=== PATIENT | male | born 1950 | race Caucasian/White ===

== ENCOUNTER 2021-08-29 08:01 | Outpatient (REF) | payer OTHER, SELFPAY ==
[2021-08-29 08:53] LABS: MANUAL DIFF FLAG NO
[2021-08-29 09:59] LABS: Basophils Percent Auto 0.5 % (0-2); Eosinophils Absolute Auto 0.1 X10*3/uL (0.0-0.4); Eosinophils Percent Auto 2.2 % (0-4); Hematocrit 33.4 % (42.0-52.0); Hemoglobin 11.4 g/dl (14.0-18.0); Imm Gran Abs Auto 0.02 X10*3/uL (0.00-0.03); Imm Gran Pct Auto 0.5 % (0.0-0.4); Lymphocytes Absolute Auto 1.2 X10*3/uL (1.2-4.9); Lymphocytes Percent Auto 33.4 % (20-40); Mean Corpuscular HGB Conc 34.1 g/dl (31.0-36.0); Mean Corpuscular Hemoglobin 33.1 pg (27.0-33.0); Mean Corpuscular Volume 97.1 fL (80.0-98.0); Mean Platelet Volume 10.4 fL (9.4-12.4); Monocytes Absolute Auto 0.3 X10*3/uL (0.1-1.2); Monocytes Percent Auto 9.3 % (2-11); Neutrophils Percent Auto 54.1 % (45-73); Platelet Count 155 X10*3/uL (160-400); Red Blood Count 3.44 X10*6/uL (4.60-5.80); Red Cell Distribution Width 13.4 % (11.0-16.0); White Blood Count 3.7 X10*3/uL (4.8-10.8)
[2021-08-29 10:06] LABS: Prothrombin Time 11.8 SEC (9.9-13.0)
[2021-08-29 10:13] LABS: Estimated Average Glucose 148 mg/dL; Hemoglobin A1c % 6.8 %
[2021-08-29 10:50] LABS: Alanine Aminotransferase 16 U/L (0-40); Albumin Level 3.7 g/dL (3.5-5.0); Alkaline Phosphatase 103 U/L (39-117); Anion Gap 14 (12-20); Aspartate Amino Transferase 22 U/L (5-37); Bilirubin Direct 0.3 mg/dL (0.0-0.5); Bilirubin Total 0.8 mg/dL (0.0-1.0); Blood Urea Nitrogen 29 mg/dL (9-16); Calcium 8.8 mg/dL (8.4-10.2); Carbon Dioxide 18 mmol/L (22-29); Chloride 108 mmol/L (96-108); Cholesterol 172 mg/dL; Estimated Glomerular Filt Rate 37; Glucose Random 215 mg/dL (60-115); HDL Cholesterol 34 mg/dL; LDL Cholesterol Calculated 112 mg/dl; Magnesium 1.9 mg/dL (1.6-2.6); Potassium 5.7 mmol/L (3.3-5.1); Sodium 134 mmol/L (135-145); Total Protein 6.6 g/dL (6.5-8.0); Triglycerides 132 mg/dL
[2021-08-29 11:02] LABS: Uric Acid 7.6 mg/dL (3.4-7.0)
[2021-08-30 16:17] LABS: Tacrolimus Prograf 4.7 mcg/L
== END 2021-08-29 08:02 | disposition home or self-care (01) ==
LOC: HO.LAB 08:01
PROVIDERS: Absent Provider Internal Medicine Endocrinology, Diabetes & Metabolism; Visit Provider Internal Medicine Transplant Hepatology
DX: E11.65 Type 2 diabetes mellitus with hyperglycemia (principal); Z79.4 Long term (current) use of insulin
CPT/HCPCS: 36415; 80048; 80061; 80076; 80197; 83036; 83735; 84550; 85025; 85610

== ENCOUNTER 2021-10-07 10:12 | Outpatient (REF) | payer OTHER, SELFPAY ==
[2021-10-07 11:24] LABS: Alanine Aminotransferase 18 U/L (0-40); Albumin Level 3.8 g/dL (3.5-5.0); Alkaline Phosphatase 87 U/L (39-117); Aspartate Amino Transferase 19 U/L (5-37); Bilirubin Direct 0.3 mg/dL (0.0-0.5); Bilirubin Total 0.8 mg/dL (0.0-1.0); Total Protein 6.9 g/dL (6.5-8.0)
== END 2021-10-07 10:13 | disposition home or self-care (01) ==
LOC: HO.LAB 10:12
PROVIDERS: PCP Internal Medicine; Visit Provider Internal Medicine Endocrinology, Diabetes & Metabolism
DX: E78.00 Pure hypercholesterolemia, unspecified (principal)
CPT/HCPCS: 36415; 80076

== ENCOUNTER 2022-05-19 00:56 | Inpatient (IN) | payer OTHER, SELFPAY ==
[2022-05-19] VITALS (7 sets, daily range): BP systolic 106–146; BP diastolic 40–78; PULSE 72–95; RESP 16–18; TEMP 36.7–37.1; O2SAT 96–99; BMI 41.3
--- NOTE | ~2022-05-19 | CT_ITS ---
EXAMINATION: CT ABDOMEN AND PELVIS WITHOUT CONTRAST CLINICAL INFORMATION: History of staph bacteremia. Evaluate for potential source of infection. COMPARISON: CT abdomen/pelvis from 10/18/2016. TECHNIQUE: Multidetector volumetric imaging was performed from the superior aspect of the liver through the pubic symphysis. Sagittal and coronal reformatted images were obtained on the technologist's workstation. This CT examination was performed using dose optimization techniques as appropriate, variously including the following: *Automated exposure control *Adjustment of mA and/or kV according to patient size (this includes techniques or standardized protocols for targeted exams where dose is matched to indication/reason for exam; i.e. extremities or head) *Use of iterative reconstruction technique DLP: 684 mGy-cm FINDINGS: LUNG BASES: Linear opacities of mild atelectasis in the visualized bases. Trace right pleural effusion. No basilar consolidation. Aortic valve is calcified. Three-vessel coronary artery atherosclerotic calcification. No pericardial effusion. LIVER: The cirrhotic liver has lobulated surface contour. No focal liver lesion is detected on this noncontrast examination. GALLBLADDER AND BILIARY TREE: Gallbladder surgically absent. No dilated bile ducts. PANCREAS: Pmyi-ie-rdclpjze atrophy of the pancreas. No acute pancreatic abnormality. No pancreatic ductal dilatation. SPLEEN: Chronic mild splenomegaly. Spleen measures up to 13.1 cm maximum dimension. ADRENAL GLANDS: Normal. KIDNEYS AND URETERS: Mild cortical atrophy of the kidneys. No nephrolithiasis or hydronephrosis. A structure medial to the right kidney of 30 Hounsfield unit attenuation that currently measures 2.8 cm AP presumably represents a chronically hyperdense peripelvic cyst. This has decreased in size compared to 10/11/2014 and 10/18/2016. BLADDER: Normal. No calculi or wall thickening. BOWEL AND PERITONEUM: There is circumferential thickening of the wall of the second and proximal third portion of duodenum with edema of the surrounding fat. There is no discrete periduodenal fluid collection. No abscess. No dilated bowel loops or pneumoperitoneum. The appendix is normal. There are scattered diverticula of the colon without evidence of diverticulitis. ABDOMINAL WALL: Chronic diastases of rectus abdominis muscles. No acute or significant findings in the abdominal wall. VASCULATURE: Mild atherosclerosis of the abdominal aorta without aneurysm. LYMPH NODES: No pathologic sized lymph nodes in the abdomen or pelvis. No inguinal lymphadenopathy. PELVIC VISCERA: Prostate gland is normal in size. No pelvic mass or free fluid. SKELETAL: Although there is chronic endplate irregularity and interbody fusion at L4-L5, this deformity is new compared to 10/18/2016, and this could be sequela of prior discitis. There is no spinal fusion hardware at this level. Diffuse idiopathic skeletal hyperostosis as manifest by flowing anterior ligament ossification of the visualized thoracic spine. Multilevel degenerative arthropathy of the spine. CT/CT abdomen pelvis wo con IMPRESSION: * There is circumferential wall thickening and fat stranding of the proximal duodenum. These imaging findings are suggestive of duodenitis. No evidence of bowel perforation or abscess formation. * Mild diverticulosis of the colon without diverticulitis. * Chronic liver cirrhosis and splenomegaly. * A slightly hyperdense structure projecting medial to the right kidney might represent a proteinaceous parapelvic cyst; it has decreased in size compared to 10/11/2014 and 10/18/2016.
--- NOTE | ~2022-05-19 | XR_ITS ---
EXAMINATION: XR LUMBOSACRAL SPINE CLINICAL INFORMATION: Back pain. Prior back surgery. COMPARISON: CT abdomen pelvis 10/18/2016 TECHNIQUE: Three views of the lumbosacral spine. FINDINGS: Normal alignment of the lumbar spine. There is mild height loss of the L5 vertebral body which is age indeterminate. There is severe narrowing of the L4/L5 disc space height with prominent sclerotic changes of both endplates and prominent bridging osteophytes at this level. Also noted is mild to moderate narrowing of the L3/L4 and L5/S1 disc space heights. Prominent osteophytes also noted at the L3/L4 level. There are degenerative changes of the posterior elements of the lower lumbar spine. XR/XR lumbar spine 2-3V IMPRESSION: Moderate degenerative changes of the lower lumbar spine with mild compression deformity of the L5 vertebral body which is age indeterminate. If concern for an acute fracture, further evaluation with MRI imaging can be obtained to better assess acuity.
--- NOTE | ~2022-05-19 | MR_ITS ---
MR LUMBAR SPINE WITHOUT CONTRAST CLINICAL INFORMATION: Staph bacteremia. COMPARISON: Abdominal CT 05/21/2022 and lumbar spine radiographs 05/19/2022. TECHNIQUE: MRI of the lumbar spine was obtained using routine sequences without contrast. FINDINGS: There are 5 nonrib-bearing lumbar-type vertebral bodies. There is chronic opposing vertebral body height loss at L4-L5. There are significant T2 signal changes adjacent to a large right-sided anterior bridging osteophyte at L1-L2. There is bone marrow edema within this bridging osteophyte complex which could reflect focal osteomyelitis given the history. Adjacent T2 signal changes extending into the right retrocrural compartment and the adjacent right retroperitoneum may reflect cellulitis/phlegmon. No definite drainable abscess is seen with assessment limited given the lack of contrast. No additional evidence of infection within the lumbar spine. Severe disc volume loss at L4-L5. There is disc desiccation at all lumbar levels. Conus terminates at the L1-L2 level. Enlarged retroperitoneal lymph nodes may be reactive. L1-L2: Small annular disc bulge and mild bilateral facet arthropathy. No central canal stenosis and no foraminal stenosis. L2-L3: There is an annular disc bulge that is in part disc osteophyte and there is moderate bilateral hypertrophic facet arthropathy. Left lateral disc osteophyte protrusion contacts the extraforaminal left L2 nerve root. L3-L4: Diffuse annular disc bulges in part disc osteophyte and moderate bilateral facet arthropathy. No central canal stenosis. Lateral disc osteophyte contacts the extraforaminal L3 nerve roots bilaterally. L4-L5: Diffuse osteophytic ridging and severe bilateral facet arthropathy. Left hemilaminectomy changes. No central canal stenosis. Lateral osteophytic ridging results in moderate to severe right foraminal stenosis with mass effect on the exiting right L4 nerve root. Osteophytic ridging results in mass effect on the extraforaminal left L4 nerve root as well. L5-S1: Diffuse disc osteophyte complex and severe bilateral facet arthropathy and ligamentum flavum thickening. Findings in concert result in right subarticular zone stenosis with mass effect on the traversing right S1 nerve root as well as severe right and moderate left foraminal stenosis with mass effect on the exiting right greater than left L5 nerve roots. MR/MR lumbar spine wo con IMPRESSION: - Please note that the patient refused contrast for this study. There are significant paravertebral T2 signal changes adjacent to a large right-sided anterior bridging osteophyte at L1-L2. There is bone marrow edema within this bridging osteophyte complex which could reflect focal osteomyelitis given the history. Adjacent T2 signal changes extending into the right retrocrural compartment and the adjacent right retroperitoneum may reflect cellulitis/phlegmon. No definite drainable abscess is seen with assessment limited given the lack of contrast. - At L2-L3, a left lateral disc osteophyte protrusion contacts the extraforaminal left L2 nerve root. - At L3-L4, lateral disc osteophyte contacts the extraforaminal L3 nerve roots bilaterally. - At L4-L5, there is complete disc volume loss and chronic opposing endplate height loss. Lateral osteophytic ridging results in moderate to severe right foraminal stenosis with mass effect on the exiting right L4 nerve root. Osteophytic ridging results in mass effect on the extraforaminal left L4 nerve root as well. - At L5-S1, multifactorial degenerative changes result in right subarticular zone stenosis with mass effect on the traversing right S1 nerve root as well as severe right and moderate left foraminal stenosis with mass effect on the exiting right greater than left L5 nerve roots.
--- NOTE | 2022-05-19 01:30 | PC.NURSE ---
BHANU TO BEDSIDE FROM WAITING ROOM, CONFIRMS PATIENT TO BE A POOR HISTORIAN. CONFIRMS SPASMS/PAIN SO SEVERE PT UNABLE TO GET COMFORTABLE AT ALL IN ANY POSITION THIS EVENING.
--- NOTE | 2022-05-19 01:49 | ED_ITS ---
HPI - General Adult General Chief complaint: General Medical Stated complaint: back spasms Time Seen by Provider: 05/19/22 01:49 Source: patient Mode of arrival: EMS Limitations: no limitations History of Present Illness HPI narrative: patient with a bad back since having a liver transplant 5 years ago. 3 days ago started with back pain, patient then developed fever and chills. Patient on immunosupressives, no prior infections. After his initial surgery he developed an infection in his back involving the lumbar spine. Onset (ago): day(s) Location: back Radiation: other (right flank) Severity: moderate Quality: burning Pain Consistency: constant Exacerbating factors: none Associated symptoms: fever/chills Treatments prior to arrival: none Related Data Allergies Allergy/AdvReac Type Severity Reaction Status Date / Time ibuprofen [IBUPROFEN] Allergy Severe SWELLING Verified 05/19/22 01:16 peanut [PEANUTS] Allergy Unknown SWELLING Verified 05/19/22 01:16 Review of Systems 2 Constitutional: Constitutional: Reports no additional constitutional complaints Eyes: Eyes: Reports no additional eye complaints ENT: Denies dizziness Cardiovascular: Cardiovascular: Reports no additional cardiovascular complaints Respiratory: Respiratory: Reports as per HPI Gastrointestinal: Gastrointestinal: Reports no additional gastrointestinal complaints Musculoskeletal: Musculoskeletal: Reports no additional musculoskeletal complaints Integumentary/Breasts: Skin/Breast: Denies rash Neurologic: Reports system reviewed and no additional complaints, except as documented, Denies dizziness and Denies Sensory deficit (Neuro) Psychiatric: Psychiatric: Denies anxiety [facility] Social History Social History Advance Directives: Yes Advance Directives Information Provided: No Advance Directives on File: No Physical Exam ED Vital Signs: Vital Signs - 24 hr 05/19/22 01:16 Temperature 98.1 F Pulse Rate 78 Respiratory Rate 18 Blood Pressure 136/61 Pulse Oximetry 97 Oxygen Delivery Method Room Air BMI result Body Mass Index 41.3 Const Other: Male uncomfortable Nutritional Appearance: obese Orientation/consciousness: oriented to person and patient oriented x3 Limitations: no limitations HENMT Head: Yes normal to inspection Ears: external ears normal General nose exam: Normal external nose present Mouth: Normal oral and palatal mucosa present and oropharynx normal Throat: Yes posterior oropharynx normal Eyes General: appearance normal, both eyes and all related structures Neck Neck: Yes normal visual inspection Chest Chest palpation & inspection: normal inspection of the chest Resp Auscultation: clear to auscultation bilaterally Cardio Jugular venous distension: no JVD Rate: regular rate Rhythm: regular rhythm Heart sounds: S1 normal heart sound present and S2 normal heart sound present GI Inspection: Yes normal to inspection Palpation (GI): Soft to palpation, nontender and No hepatosplenomegaly present Auscultation: normal bowel sounds General: Yes no CVA tenderness Back/Spine/Pelvis Back: no CVA tenderness Skin Other: area of erythema on right flank but from pressure Neuro General: oriented to person and patient oriented x3 Cranial nerves: Yes CN's II-XII intact bilaterally Motor exam (neuro): 5/5 motor strength present throughout Sensory Exam: No Sensory deficit (Neuro) Extrem General: Yes normal to inspection Psych Appearance: grossly normal Course Reevaluation(s) Reevaluation #1: patient with elevated WBC , redness to right lower flank has not gone away, could be cellulitis vs early zoster. Now with LFTs abnormalities will discuss with transplant surgeon will cover flank with ancef. Time: 03:52 Reevaluation #2: Discussed with [facility] transplant team, patient not showing early signs of rejection will admit for cellulitis vs zoster Time: 04:26 Medical Decision Making Lab Data Result diagrams: 05/19/22 02:40 05/19/22 02:40 Labs: Lab Results 05/19/22 05/19/22 05/19/22 Range/Units 02:40 02:40 04:48 WBC 12.3 H (4.8-10.8) X10*3/uL RBC 3.35 L (4.60-5.80) X10*6/uL Hgb 11.2 L (14.0-18.0) g/dl Hct 31.7 L (42.0-52.0) % MCV 94.6 (80.0-98.0) fL MCH 33.4 H (27.0-33.0) pg MCHC 35.3 (31.0-36.0) g/dl RDW 13.5 (11.0-16.0) % Plt Count 116 L D (160-400) X10*3/uL MPV 10.5 (9.4-12.4) fL Immature Gran % (Auto) 0.9 H (0.0-0.4) % Neut % (Auto) 88.8 H (45-73) % Lymph % (Auto) 6.0 L (20-40) % [place] % (Auto) 4.1 (2-11) % Eos % (Auto) 0.0 (0-4) % Baso % (Auto) 0.2 (0-2) % Lymph # (Auto) 0.7 L (1.2-4.9) X10*3/uL [place] # (Auto) 0.5 (0.1-1.2) X10*3/uL Eos # (Auto) 0.0 (0.0-0.4) X10*3/uL Baso # (Auto) 0.0 (0.0-0.2) X10*3/uL Abs Immat Gran (auto) 0.11 H (0.00-0.03) X10*3/uL Absolute Neuts (auto) 10.9 H (2.0-8.3) x10*3/uL Absolute Nucleated RBC 0.000 (0.0-0.012) X10*3/uL Nucleated RBC % (auto) 0.0 (0.0-0.2) /100WBC Sodium 133 L (135-145) mmol/L Potassium 5.1 (3.3-5.1) mmol/L Chloride 104 (96-108) mmol/L Carbon Dioxide 17 L (22-29) mmol/L Anion Gap 17 (12-20) BUN 37 H (9-16) mg/dL Creatinine 2.05 H (0.5-1.4) mg/dL Estim Creat Clear Calc 33.1 Estimated GFR 32 Random Glucose 222 H (60-115) mg/dL Calcium 8.7 (8.4-10.2) mg/dL Total Bilirubin 1.3 H (0.0-1.0) mg/dL Direct Bilirubin 0.4 (0.0-0.5) mg/dL AST 47 H D (5-37) U/L ALT 46 H (0-40) U/L Alkaline Phosphatase 78 (39-117) U/L Total Protein 6.7 (6.5-8.0) g/dL Albumin 3.5 (3.5-5.0) g/dL COVID-19 (JACQUELYN) Negative (Negative) COVID-19 Clin Com See Note Critical Care Time Critical Care Time Attestation: I spent 40 minutes of critical care, with interventions, assessments, speaking to patient, consultants, and family. Discharge Plan Discharge Clinical Impression: Cellulitis, Shingles Patient Disposition: Admitted As Inpatient
[2022-05-19] MEDS: Cyclobenzaprine HCl 10 MG TABLET PO (02:23)
[2022-05-19] MEDS: Ketorolac Tromethamine 30 MG/ML VIAL IVPUSH (02:41)
[2022-05-19 03:07] LABS: Basophils Percent Auto 0.2 % (0-2); Hematocrit 31.7 % (42.0-52.0); Hemoglobin 11.2 g/dl (14.0-18.0); Imm Gran Abs Auto 0.11 X10*3/uL (0.00-0.03); Imm Gran Pct Auto 0.9 % (0.0-0.4); Lymphocytes Absolute Auto 0.7 X10*3/uL (1.2-4.9); MANUAL DIFF FLAG NO; Mean Corpuscular HGB Conc 35.3 g/dl (31.0-36.0); Mean Corpuscular Hemoglobin 33.4 pg (27.0-33.0); Mean Corpuscular Volume 94.6 fL (80.0-98.0); Mean Platelet Volume 10.5 fL (9.4-12.4); Monocytes Absolute Auto 0.5 X10*3/uL (0.1-1.2); Monocytes Percent Auto 4.1 % (2-11); Neutrophils Absolute Auto 10.9 x10*3/uL (2.0-8.3); Neutrophils Percent Auto 88.8 % (45-73); Platelet Count 116 X10*3/uL (160-400); Red Blood Count 3.35 X10*6/uL (4.60-5.80); Red Cell Distribution Width 13.5 % (11.0-16.0); White Blood Count 12.3 X10*3/uL (4.8-10.8)
[2022-05-19 03:35] LABS: Alanine Aminotransferase 46 U/L (0-40); Albumin Level 3.5 g/dL (3.5-5.0); Alkaline Phosphatase 78 U/L (39-117); Anion Gap 17 (12-20); Aspartate Amino Transferase 47 U/L (5-37); Bilirubin Direct 0.4 mg/dL (0.0-0.5); Bilirubin Total 1.3 mg/dL (0.0-1.0); Blood Urea Nitrogen 37 mg/dL (9-16); Calcium 8.7 mg/dL (8.4-10.2); Carbon Dioxide 17 mmol/L (22-29); Chloride 104 mmol/L (96-108); Creatinine Clr Calc Pharmacy 33.1; Estimated Glomerular Filt Rate 32; Glucose Random 222 mg/dL (60-115); Potassium 5.1 mmol/L (3.3-5.1); Sodium 133 mmol/L (135-145); Total Protein 6.7 g/dL (6.5-8.0)
[2022-05-19 05:14] LABS: COVID-19 Test Negative (Negative)
[2022-05-19] MEDS: ceFAZolin Sodium 3 GM in 0.9 % Sodium Chloride 100 ML IV (05:44)
[2022-05-19] MEDS: Morphine Sulfate 4 MG/ML CARTRIDGE IVPUSH (05:45)
--- NOTE | 2022-05-19 06:29 | PC.NURSE ---
REPORT FROM OSBALDO CAST AT 05:00. AIRBORNE AND CONTACT PRECAUTION SIGNS PLACED ON DOOR UNTIL SHINGLES ARE R/O.
[2022-05-19 08:14] LABS: Appearance Urine Clear; Color Urine Yellow; Glucose Urine UA Negative (Negative); Leukocyte Esterase Urine Negative (Negative); Nitrite Urine Negative (Negative); Specific Gravity - Urine >= 1.030 (1.005-1.025); Urine Blood Negative (Negative); Urine Ketones Trace mg/dL (Negative); Urine Protein Trace mg/dL (Neg-Trace)
--- NOTE | 2022-05-19 09:20 | P.HPHOSP_ITS ---
History of Present Illness Date of Service: 05/19/22 Chief Complaint: R back pain This is a 71 year old male with a PMH of Cirrhosis (reprots no related to EtOH) - s/p liver transplant about 5 years ago, DM, Back surgery and chronic back pain, HTN, HLD who presents to the ED with a 2 day history of right sided back pain, severe in nature, non radiating with associated fevers and chills. He reports that his current symptoms are different than his prior back surgery / osteomyelitis. He reports compliance with his anti-rejcection medications. He denies any sick contacts. He denies any chest pain, shortness of breath, abdominal pain. He reports a decrease in oral intake. Work up in the ED showed leukocytosis and mildly elevated SCr / AST / ALT. On exam, there was concern for cellulitis vs early zoster. He has been given analgesics and IV antibiotics. Given his immunocompromised state, he will be observed overnight. The pt reports his back pain has improved with IV analgesics. Review of Systems Review of Systems: negative except HPI PMFSH Social History Advance Directives: Yes Advance Directives on File: Yes Advance Directives Date on File: 05/19/22 Meds Allergies Allergy/AdvReac Type Severity Reaction Status Date / Time ibuprofen [IBUPROFEN] Allergy Severe SWELLING Verified 05/19/22 01:16 peanut [PEANUTS] Allergy Unknown SWELLING Verified 05/19/22 01:16 Active Medications: Current Medications Acetaminophen (Acetaminophen 325 Mg Tablet) 650 mg PO Q6H PRN PRN Reason: Pain, Mild (Pain Scale 1-3) Ondansetron HCl (Ondansetron Hcl 4 Mg/2 Ml Vial) 4 mg IVPUSH Q8H PRN PRN Reason: Nausea and Vomiting Pharmacy Consult (Consult Rx Perform Med Rec) 1 each MISCELLANE ONCE PRN PRN Reason: Consult order Pharmacy Consult (Consult Rx Perform Med Rec) 1 each MISCELLANE ONCE PRN PRN Reason: Consult order Sodium Chloride (0.9 % Sodium Chloride Flush 3 Ml Syringe) 3 ml IVFLUSH [facility] Home Medications Medication Instructions Recorded Confirmed Last Taken Type acetaminophen 500 mg tablet 500 mg PO Q6H PRN Pain 05/19/22 05/19/22 05/18/22 History amlodipine 10 mg tablet 1 tab PO DAILY 05/19/22 05/19/22 05/18/22 History ascorbic acid (vitamin C) 500 mg 500 mg PO DAILY 05/19/22 05/19/22 Unknown History tablet (Vitamin C) aspirin 81 mg tablet,delayed 1 tab PO BEDTIME 05/19/22 05/19/22 05/18/22 History release atorvastatin 20 mg tablet 1 tab PO BEDTIME 05/19/22 05/19/22 05/18/22 History cholecalciferol (vitamin D3) 25 25 mcg PO DAILY 05/19/22 05/19/22 Unknown History mcg (1,000 unit) tablet (Vitamin D3) clonidine HCl 0.1 mg tablet 1 tab PO BID 05/19/22 05/19/22 05/18/22 History docusate sodium 100 mg capsule 100 mg PO BID 05/19/22 05/19/22 Unknown History (Colace) lisinopril 2.5 mg tablet 1 tab PO DAILY 05/19/22 05/19/22 05/18/22 History multivitamin 1 tab PO DAILY 05/19/22 05/19/22 Unknown History repaglinide 0.5 mg tablet 1 tab PO TIDAC 05/19/22 05/19/22 05/18/22 History sennosides 8.6 mg tablet (senna) 8.6 mg PO BID 05/19/22 05/19/22 Unknown History sitagliptin 50 mg tablet (Januvia) 1 tab PO DAILY 05/19/22 05/19/22 05/18/22 History tacrolimus 1 mg capsule, 1 cap PO BID 05/19/22 05/19/22 05/18/22 History immediate-release Physical Exam Vital Signs and Narrative: Vital Signs: Last Vital Signs Temp 98.2 F 05/19/22 06:09 Pulse 72 05/19/22 07:58 Resp 16 05/19/22 07:58 BP 110/40 L 05/19/22 07:58 Pulse Ox 97 05/19/22 07:58 O2 Del Method 05/19/22 07:58 BMI result Body Mass Index 41.3 Const: Other: Constitutional - Awake and Alert, No apparent distress Eyes - PERRLA, EOMI Cardiovascular - S1S2, RRR, No edema Respiratory - Normal lung expansion, Normal respiratory effort, No respiratory distress, CTA bilaterally Gastrointestinal - NT / ND; +BS; No rebound or guarding - No CVA tenderness Extremities - no calf tenderness bilaterally, no swelling Musculoskeletal - Normal inspection, normal ROM Skin - Warm/Dry, see pictures below Neurological - Alert & oriented x3, No focal deficit Psychological - Appropriate affect Skin: Other: Results Labs CBC and Chem 7: 05/19/22 02:40 05/19/22 02:40 Labs: Laboratory Results - last 24 hr 05/19/22 05/19/22 05/19/22 02:40 02:40 04:48 MCV 94.6 MCH 33.4 H MCHC 35.3 RDW 13.5 Plt Count 116 L D MPV 10.5 Immature Gran % (Auto) 0.9 H Neut % (Auto) 88.8 H Lymph % (Auto) 6.0 L [place] % (Auto) 4.1 Eos % (Auto) 0.0 Baso % (Auto) 0.2 Lymph # (Auto) 0.7 L [place] # (Auto) 0.5 Eos # (Auto) 0.0 Baso # (Auto) 0.0 Abs Immat Gran (auto) 0.11 H Absolute Neuts (auto) 10.9 H Absolute Nucleated RBC 0.000 Nucleated RBC % (auto) 0.0 Anion Gap 17 Estim Creat Clear Calc 33.1 Estimated GFR 32 Random Glucose 222 H Calcium 8.7 Total Bilirubin 1.3 H Direct Bilirubin 0.4 AST 47 H D ALT 46 H Alkaline Phosphatase 78 Total Protein 6.7 Albumin 3.5 Urine Color Urine Appearance Urine pH Ur Specific [place] Urine Protein Urine Glucose (UA) Urine Ketones Urine Blood Urine Nitrite Ur Leukocyte Esterase COVID-19 (JACQUELYN) Negative COVID-19 Clin Com See Note 05/19/22 08:07 MCV MCH MCHC RDW Plt Count MPV Immature Gran % (Auto) Neut % (Auto) Lymph % (Auto) [place] % (Auto) Eos % (Auto) Baso % (Auto) Lymph # (Auto) [place] # (Auto) Eos # (Auto) Baso # (Auto) Abs Immat Gran (auto) Absolute Neuts (auto) Absolute Nucleated RBC Nucleated RBC % (auto) Anion Gap Estim Creat Clear Calc Estimated GFR Random Glucose Calcium Total Bilirubin Direct Bilirubin AST ALT Alkaline Phosphatase Total Protein Albumin Urine Color Yellow Urine Appearance Clear Urine pH 5.0 Ur Specific [place] >= 1.030 H Urine Protein Trace Urine Glucose (UA) Negative Urine Ketones Trace Urine Blood Negative Urine Nitrite Negative Ur Leukocyte Esterase Negative COVID-19 (JACQUELYN) COVID-19 Clin Com Assessment and Plan (1) Cellulitis: Status: Acute Plan This is a 71 year old male with a 2 day history of R back/flank pain with associated fevers and chills. He is admitted under obs for: 1. R flank pain, possible early cellulitis On exam, mild erythema in the region compared to the rest of the back Given his immunocompromised state -- will opt for IV kefzol today and likely PO keflex upon d/c No clinical signs to indicate zoster flare -- will monitor closely The patient does not have severe sepsis -- his SCr is likely related to CKD 2. Cirrohosis -s/p liver transplan monitor LFTs and continue his anti-rejection meds 3. DM hold orals use sliding scale, diabetic diet 4. HTN hold BP meds today 5. HLD statin Full Code DVT pptx, low risk -- early ambulation; if the patient requires on going inpatient hospitalization -- may need to consider pharmacological therapy Quality Stroke Does the patient have a stroke diagnosis?: No VTE Prior VTE?: No VTE Risk Level:: Medical - moderate - high VTE Device Contraindication: N/A - Device Ordered VTE Drug Contraindication: N/A - Med Ordered
--- NOTE | 2022-05-19 09:45 | PHA.MEDREC ---
Pharmacy Consult ? Medication Reconciliation Pharmacy has completed the medication reconciliation. Patient poor historian of medications. Called patient's and verified meds with her list of medications. Cross-referenced with claim history as well.
[2022-05-19] MEDS: Lactated Ringers 1,000 ML 100 ML IVCONT ×2 (12:55→20:33)
--- NOTE | 2022-05-19 20:45 | PM.EVENT ---
Event Note Date of Service: 05/19/22 Event Note: pt cultires growing gram positive cocci . will cover with vanco and rpt cultures
[2022-05-19] MEDS: Docusate Sodium 100 MG CAPSULE PO (22:05)
[2022-05-19] MEDS: Aspirin Enteric Coated 81 MG TABLET.DR PO (22:05)
[2022-05-19] MEDS: Atorvastatin Calcium 20 MG TABLET PO (22:05)
[2022-05-19] MEDS: Sennosides 8.6 MG TABLET PO (22:05)
[2022-05-19] MEDS: cloNIDine HCL 0.1 MG TABLET PO (22:05)
[2022-05-19] MEDS: Tacrolimus 1 MG CAPSULE PO (22:20)
[2022-05-20] VITALS (7 sets, daily range): BP systolic 115–150; BP diastolic 57–97; PULSE 61–78; RESP 15–24; TEMP 36.6–37; O2SAT 97–99
[2022-05-20 07:53] LABS: Hemoglobin 9.8 g/dl (14.0-18.0); Mean Corpuscular Hemoglobin 33.3 pg (27.0-33.0); Mean Corpuscular Volume 95.2 fL (80.0-98.0); Mean Platelet Volume 10.7 fL (9.4-12.4); Red Blood Count 2.94 X10*6/uL (4.60-5.80); Red Cell Distribution Width 13.4 % (11.0-16.0); White Blood Count 6.7 X10*3/uL (4.8-10.8)
[2022-05-20 07:58] LABS: Anion Gap 14 (12-20); Blood Urea Nitrogen 37 mg/dL (9-16); Carbon Dioxide 18 mmol/L (22-29); Chloride 106 mmol/L (96-108); Creatinine Clr Calc Pharmacy 41.2; Estimated Glomerular Filt Rate 41; Glucose Random 197 mg/dL (60-115); Potassium 4.5 mmol/L (3.3-5.1); Sodium 133 mmol/L (135-145)
[2022-05-20 08:04] LABS: Calcium 7.9 mg/dL (8.4-10.2)
[2022-05-20 08:09] LABS: Platelet Count 98 X10*3/uL (160-400)
[2022-05-20 08:14] LABS: Glucose, Whole Blood 178 mg/dL (60-115)
[2022-05-20] MEDS: Acetaminophen 325 MG TABLET 650 MG PO (08:59)
[2022-05-20] MEDS: cloNIDine HCL 0.1 MG TABLET PO ×2 (09:00→20:17)
--- NOTE | 2022-05-20 09:00 | PC.NURSE ---
pt is a/o x 3 no sob/olive noted skin pink warm dry speaks in full sentences. lungs -cta. abd distended, soft and n/t. daughter chau([phone]) is at bedside. pt/daughter aware of plan of care. pt to go to the ed overflow unit. rn to rn report given.. pt continue with lr fluids running.
[2022-05-20] MEDS: 0.9 % Sodium Chloride Flush 3 ML SYRINGE IVFLUSH ×3 (09:01→23:57)
[2022-05-20] MEDS: Sennosides 8.6 MG TABLET PO (09:01)
[2022-05-20] MEDS: Multivitamin TABLET 1 TAB PO (09:01)
[2022-05-20] MEDS: Docusate Sodium 100 MG CAPSULE PO (09:01)
[2022-05-20] MEDS: Tacrolimus 1 MG CAPSULE PO ×2 (10:58→20:18)
--- NOTE | 2022-05-20 14:17 | MHC.CM.PN ---
PATIENT LIVES WITH AND FAMILY HCP IS AND A COPY IS REQUESTED. NO DME OR VNA SERVICES. HE HAS BEEN VACCINATED AGAINST COVID-19 X 3. HE HAS NOT CONTRACTED COVID-19 PATIENT REPORTS THAT HE IS A LIVER TRANSPLANT PATIENT PLAN IS HOME WEDNESDAY WITH NO NEED FOR SERVICES. TO TRANSPORT SANDERS 05/20 IN CHART
--- NOTE | 2022-05-20 14:18 | P.PNIM_ITS ---
Subjective Subjective Date of Service: 05/20/22 Interval History: patient feeling better denies fever, no chills, no abdominal or flank pain, denies nausea , vomiting, diarrhea, at bedside feels he is looking significantly better. Review of Systems CHART CHANGER no headache no dizziness CVS no chest pain respiratory no cough, no sputum production Review of Systems: Yes all other systems are reviewed and are negative Physical Exam Vital Signs: Vital Signs: Last Vital Signs Temp 98 F 05/20/22 14:16 Pulse 66 05/20/22 14:16 Resp 18 05/20/22 14:16 BP 150/97 H 05/20/22 14:16 Pulse Ox 97 05/20/22 14:16 O2 Del Method 05/20/22 14:16 BMI result Body Mass Index 41.3 Const: Other: General awake alert x3, no acute distress. Neck supple no JVD. CVS regular rate rhythm, Respiratory lungs clear to auscultation, no respiratory distress, no wheeze, no rhonchi. Gastrointestinal abdomen soft, nontender, bowel sounds audible, no guarding , no rigidity. Extremities no edema. no redness lower extremity musculoskeletal no flank pain Neuro nonfocal Skin no rash, no flank redness Objective Data Active Medications Acetaminophen (Acetaminophen 325 Mg Tablet) 650 mg PO Q6H PRN PRN Reason: Pain, Mild (Pain Scale 1-3) Last Admin: 05/20/22 08:59 Dose: 650 mg Documented By: DARIUS Aspirin (Aspirin Enteric Coated 81 Mg Tablet.) 81 mg PO BEDTIME [facility] Last Admin: 05/19/22 22:05 Dose: 81 mg Documented By: VIVIAN Atorvastatin Calcium (Atorvastatin Calcium 20 Mg Tablet) 20 mg PO BEDTIME [facility] Last Admin: 05/19/22 22:05 Dose: 20 mg Documented By: VIVIAN Clonidine HCl (Clonidine Hcl 0.1 Mg Tablet) 0.1 mg PO BID [facility]; Protocol Last Admin: 05/20/22 09:00 Dose: 0.1 mg Documented By: DARIUS Docusate Sodium (Docusate Sodium 100 Mg Capsule) 100 mg PO BID [facility] Last Admin: 05/20/22 09:01 Dose: 100 mg Documented By: DARIUS Cefazolin Sodium 1 gm/ Sodium (Chloride) 50 mls @ 100 mls/hr IV Q8H [facility] Last Infusion: 05/20/22 13:54 Dose: 0 mls/hr Documented By: MARI Vancomycin HCl 750 mg/ Sodium (Chloride) 265 mls @ 265 mls/hr IV Q24H [facility] Multivitamins/Vitamin C (Multivitamin Tablet) 1 tab PO DAILY [facility] Last Admin: 05/20/22 09:01 Dose: 1 tab Documented By: DARIUS Ondansetron HCl (Ondansetron Hcl 4 Mg/2 Ml Vial) 4 mg IVPUSH Q8H PRN PRN Reason: Nausea and Vomiting Oxycodone HCl (Oxycodone Hcl Immed Release 5 Mg Tablet) 5 mg PO Q6H PRN PRN Reason: Pain, Severe (Pain Scale 7-10) Pharmacy Consult (Consult Rx Perform Med Rec) 1 each MISCELLANE ONCE PRN PRN Reason: Consult order Pharmacy Consult (Consult Rx Perform Med Rec) 1 each MISCELLANE ONCE PRN PRN Reason: Consult order Pharmacy Consult (Consult Rx Vancomycin Dosing) 1 each MISCELLANE DAILY PRN PRN Reason: Consult order Senna (Sennosides 8.6 Mg Tablet) 8.6 mg PO BID [facility] Last Admin: 05/20/22 09:01 Dose: 8.6 mg Documented By: DARIUS Sodium Chloride (0.9 % Sodium Chloride Flush 3 Ml Syringe) 3 ml IVFLUSH QSHIFT [facility] Last Admin: 05/20/22 13:54 Dose: 3 ml Documented By: MARI Tacrolimus (Tacrolimus 1 Mg Capsule) 1 mg PO BID [facility] Last Admin: 05/20/22 10:58 Dose: 1 mg Documented By: KEITH Labs CBC & Chem 7: 05/20/22 07:02 05/20/22 07:02 Labs: Laboratory Results - last 24 hr 05/20/22 05/20/22 05/20/22 07:02 07:02 08:02 MCV 95.2 MCH 33.3 H MCHC 35.0 RDW 13.4 Plt Count 98 L MPV 10.7 Absolute Nucleated RBC 0.000 Nucleated RBC % (auto) 0.0 Anion Gap 14 Estim Creat Clear Calc 41.2 Estimated GFR 41 POC Glucose 178 H Random Glucose 197 H Calcium 7.9 L D Microbiology Microbiology Results: Microbiology 05/19/22 05:36 Blood Culture - Preliminary Blood - Venous Staphylococcus aureus 05/19/22 04:48 Blood Culture - Preliminary Blood - Venous Staphylococcus aureus Assessment and Plan (1) Gram-positive bacteremia: Status: Acute (2) Cellulitis: Status: Acute Plan 71 year old male with a 2 day history of R back/flank pain with associated fevers and chills. He is admitted under obs for: 1. Sepsis due to Staphylococcal bacteremia likely source skin patient met sepsis criteria due to leukocytosis and tachypnea patient presented with right flank pain and mild erythema flank pain and erythema resolved, WBC normalized no fever blood cultures x2 positive for Staphylococcus aureus continue IV Kefzol and IV vancomycin follow final sensitivities, repeat blood cultures pending patient is immunocompromised will follow clinical course closely 2. Cirrohosis -s/p liver transplan monitor LFTs and continue his anti-rejection meds 3. DM hold orals take Januvia and repaglinide use sliding scale, diabetic diet 4. HTN BP in normal range except few high blood pressure readings on amlodipine 10 mg and lisinopril 2.5 mg daily at home, follow BP closely and resume home medication 5. HLD statin 6. chronic kidney disease stage 3 Full Code DVT pptx, place on compression boots due to low platelets and anemia patient will need continued inpatient hospitalization due to Staphylococcus bacteremia on IV antibiotics waiting for final culture report Quality Stroke Does the patient have a stroke diagnosis?: No VTE Prior VTE?: No VTE Risk Level:: Medical - moderate - high VTE Device Contraindication: N/A - Device Ordered VTE Drug Contraindication: N/A - Med Ordered
[2022-05-20 15:29] LABS: Glucose, Whole Blood 157 mg/dL (60-115)
[2022-05-20 19:37] LABS: Glucose, Whole Blood 218 mg/dL (60-115)
[2022-05-20] MEDS: Atorvastatin Calcium 20 MG TABLET PO (20:17)
[2022-05-20] MEDS: Aspirin Enteric Coated 81 MG TABLET.DR PO (20:17)
[2022-05-20] MEDS: Insulin Lispro 100 UNIT/ML 3 ML VIAL SUBCUT (21:01)
[2022-05-20] MEDS: vancomycin HCL 750 MG in 0.9 % Sodium Chloride 250 ML 265 MG IV (22:44)
--- NOTE | 2022-05-20 23:11 | W.PM.IDCN ---
History of Present Illness Data of Consult Service Date: 05/20/22 Requesting physician: Tucker Spivey Primary Care Provider: Sherif Oconnor III, MD HPI Reason for consult: bacteremia,back pain He presents with back pain .04/05 right flank. He has staph aureus bacteremia Review of Systems Review of Systems: Yes all other systems are reviewed and are negative PMF Family History Family history: reviewed and not pertinent Social History Social History Household Members: Spouse Housing: House Do you presently have visiting nurse or other home services: No Patient Tobacco Use Status: Never used Tobacco Advance Directives Date on File: 05/19/22 service: No Current occupational status: retired Meds Allergies Allergy/AdvReac Type Severity Reaction Status Date / Time ibuprofen [IBUPROFEN] Allergy Severe SWELLING Verified 05/19/22 01:16 peanut [PEANUTS] Allergy Unknown SWELLING Verified 05/19/22 01:16 Active Medications: Current Medications Acetaminophen (Acetaminophen 325 Mg Tablet) 650 mg PO Q6H PRN PRN Reason: Pain, Mild (Pain Scale 1-3) Last Admin: 05/20/22 08:59 Dose: 650 mg Aspirin (Aspirin Enteric Coated 81 Mg Tablet.Dr) 81 mg PO BEDTIME [facility] Last Admin: 05/20/22 20:17 Dose: 81 mg Atorvastatin Calcium (Atorvastatin Calcium 20 Mg Tablet) 20 mg PO BEDTIME [facility] Last Admin: 05/20/22 20:17 Dose: 20 mg Clonidine HCl (Clonidine Hcl 0.1 Mg Tablet) 0.1 mg PO BID [facility]; Protocol Last Admin: 05/20/22 20:17 Dose: 0.1 mg Dextrose (Dextrose 50 % 25 Gm/50 Ml Syringe) 25 gm IVPUSH Q15M PRN; Protocol PRN Reason: per Hypoglycemia Standing Ord. Docusate Sodium (Docusate Sodium 100 Mg Capsule) 100 mg PO BID [facility] Last Admin: 05/20/22 20:18 Dose: Not Given Glucose (Glucose Gel 15 Gm Gel..Gram.) 15 gm PO Q15M PRN; Protocol PRN Reason: per Hypoglycemia Standing Ord. Cefazolin Sodium 1 gm/ Sodium (Chloride) 50 mls @ 100 mls/hr IV Q8H [facility] Last Infusion: 05/20/22 20:54 Dose: Infused Vancomycin HCl 750 mg/ Sodium (Chloride) 265 mls @ 265 mls/hr IV Q24H [facility] Last Admin: 05/20/22 22:44 Dose: 265 mls/hr Insulin Human Lispro (Insulin Lispro 100 Unit/Ml 3 Ml Vial) 0 unit SUBCUT QIDACHS [facility]; Protocol Last Admin: 05/20/22 21:01 Dose: 4 unit Multivitamins/Vitamin C (Multivitamin Tablet) 1 tab PO DAILY [facility] Last Admin: 05/20/22 09:01 Dose: 1 tab Ondansetron HCl (Ondansetron Hcl 4 Mg/2 Ml Vial) 4 mg IVPUSH Q8H PRN PRN Reason: Nausea and Vomiting Oxycodone HCl (Oxycodone Hcl Immed Release 5 Mg Tablet) 5 mg PO Q6H PRN PRN Reason: Pain, Severe (Pain Scale 7-10) Pharmacy Consult (Consult Rx Perform Med Rec) 1 each MISCELLANE ONCE PRN PRN Reason: Consult order Pharmacy Consult (Consult Rx Perform Med Rec) 1 each MISCELLANE ONCE PRN PRN Reason: Consult order Pharmacy Consult (Consult Rx Vancomycin Dosing) 1 each MISCELLANE DAILY PRN PRN Reason: Consult order Senna (Sennosides 8.6 Mg Tablet) 8.6 mg PO BID [facility] Last Admin: 05/20/22 20:24 Dose: Not Given Sodium Chloride (0.9 % Sodium Chloride Flush 3 Ml Syringe) 3 ml IVFLUSH QSHIFT [facility] Last Admin: 05/20/22 13:54 Dose: 3 ml Tacrolimus (Tacrolimus 1 Mg Capsule) 1 mg PO BID [facility] Last Admin: 05/20/22 20:18 Dose: 1 mg Home Medications Medication Instructions Recorded Confirmed Last Taken Type acetaminophen 500 mg tablet 500 mg PO Q6H PRN Pain 05/19/22 05/19/22 05/18/22 History amlodipine 10 mg tablet 1 tab PO DAILY 05/19/22 05/19/22 05/18/22 History ascorbic acid (vitamin C) 500 mg 500 mg PO DAILY 05/19/22 05/19/22 Unknown History tablet (Vitamin C) aspirin 81 mg tablet,delayed 1 tab PO BEDTIME 05/19/22 05/19/22 05/18/22 History release atorvastatin 20 mg tablet 1 tab PO BEDTIME 05/19/22 05/19/22 05/18/22 History cholecalciferol (vitamin D3) 25 25 mcg PO DAILY 05/19/22 05/19/22 Unknown History mcg (1,000 unit) tablet (Vitamin D3) clonidine HCl 0.1 mg tablet 1 tab PO BID 05/19/22 05/19/22 05/18/22 History docusate sodium 100 mg capsule 100 mg PO BID 05/19/22 05/19/22 Unknown History (Colace) lisinopril 2.5 mg tablet 1 tab PO DAILY 05/19/22 05/19/22 05/18/22 History multivitamin 1 tab PO DAILY 05/19/22 05/19/22 Unknown History repaglinide 0.5 mg tablet 1 tab PO TIDAC 05/19/22 05/19/22 05/18/22 History sennosides 8.6 mg tablet (senna) 8.6 mg PO BID 05/19/22 05/19/22 Unknown History sitagliptin 50 mg tablet (Januvia) 1 tab PO DAILY 05/19/22 05/19/22 05/18/22 History tacrolimus 1 mg capsule, 1 cap PO BID 05/19/22 05/19/22 05/18/22 History immediate-release Physical Exam Vital Signs: Vital Signs: Last Vital Signs Temp 97.9 F 05/20/22 19:03 Pulse 77 05/20/22 19:03 Resp 16 05/20/22 19:03 BP 148/71 H 05/20/22 19:03 Pulse Ox 99 05/20/22 19:03 O2 Del Method 05/20/22 19:03 BMI result Body Mass Index 41.3 Const: General: cooperative HEENT: Head: Yes normal to inspection Face and sinus: Yes normal facial exam Mouth: Normal oral and palatal mucosa present Teeth and gingiva: dentition normal Eyes: General: appearance normal, both eyes and all related structures Pupils: Equal, round and reactive pupils present Resp: Effort & Inspection: normal respiratory effort Cardio: Other: 2/6 RAYNA Rate: regular rate Rhythm: regular rhythm GI: Palpation (GI): Soft to palpation and nontender : General: Yes no CVA tenderness Back/Spine/Pelvis: Back: no CVA tenderness Skin: General skin exam: no rashes or lesions noted Neuro: General: moves all extremities Cranial nerves: Yes Equal, round and reactive pupils present Extrem: General: Yes normal to inspection Psych: Appearance: grossly normal Results Labs CBC & Chem 7: 05/20/22 07:02 05/20/22 07:02 Labs: Short CBC 05/20/22 Range/Units 07:02 WBC 6.7 (4.8-10.8) X10*3/uL Hgb 9.8 L (14.0-18.0) g/dl Hct 28.0 L (42.0-52.0) % Plt Count 98 L (160-400) X10*3/uL BMP 05/20/22 07:02 Sodium 133 L Potassium 4.5 Chloride 106 Carbon Dioxide 18 L BUN 37 H Creatinine 1.65 H Calcium 7.9 L D Microbiology Microbiology Results: Microbiology 05/19/22 05:36 Blood - Venous Blood Culture - Preliminary Staphylococcus aureus 05/19/22 04:48 Blood - Venous Blood Culture - Preliminary Staphylococcus aureus Assessment and Plan (1) Gram-positive bacteremia: Status: Acute staph aureus Await sensitivities Continue Ceftriaxone and Vancomycin Would image LS spine and abdomen/pelvis (2) Cellulitis: Status: Acute
[2022-05-21 03:15] VITALS: BP 144/69; PULSE 64; RESP 22; TEMP 37.5; O2SAT 98
[2022-05-21 07:04] VITALS: BP 118/58; PULSE 73; RESP 19; TEMP 36.1; O2SAT 97
[2022-05-21 07:32] LABS: Glucose, Whole Blood 152 mg/dL (60-115)
[2022-05-21] MEDS: Insulin Lispro 100 UNIT/ML 3 ML VIAL SUBCUT ×4 (07:41→20:28)
[2022-05-21] MEDS: cloNIDine HCL 0.1 MG TABLET PO ×2 (07:42→20:28)
[2022-05-21] MEDS: Tacrolimus 1 MG CAPSULE PO ×2 (07:42→20:28)
[2022-05-21] MEDS: Multivitamin TABLET 1 TAB PO (07:43)
[2022-05-21] MEDS: Sennosides 8.6 MG TABLET PO ×2 (07:43→20:28)
[2022-05-21] MEDS: 0.9 % Sodium Chloride Flush 3 ML SYRINGE IVFLUSH ×3 (07:43→20:29)
[2022-05-21] MEDS: Docusate Sodium 100 MG CAPSULE PO ×2 (07:43→20:28)
[2022-05-21 08:38] LABS: Hematocrit 28.5 % (42.0-52.0); Mean Corpuscular HGB Conc 35.1 g/dl (31.0-36.0); Mean Corpuscular Hemoglobin 32.8 pg (27.0-33.0); Mean Corpuscular Volume 93.4 fL (80.0-98.0); Mean Platelet Volume 10.2 fL (9.4-12.4); Platelet Count 107 X10*3/uL (160-400); Red Blood Count 3.05 X10*6/uL (4.60-5.80); Red Cell Distribution Width 13.3 % (11.0-16.0); White Blood Count 6.1 X10*3/uL (4.8-10.8)
[2022-05-21 09:01] LABS: Alanine Aminotransferase 17 U/L (0-40); Albumin Level 2.9 g/dL (3.5-5.0); Alkaline Phosphatase 69 U/L (39-117); Anion Gap 13 (12-20); Aspartate Amino Transferase 30 U/L (5-37); Bilirubin Direct 0.3 mg/dL (0.0-0.5); Bilirubin Total 0.6 mg/dL (0.0-1.0); Blood Urea Nitrogen 32 mg/dL (9-16); Calcium 7.8 mg/dL (8.4-10.2); Carbon Dioxide 20 mmol/L (22-29); Chloride 105 mmol/L (96-108); Creatinine Clr Calc Pharmacy 47.9; Estimated Glomerular Filt Rate 49; Glucose Random 174 mg/dL (60-115); Potassium 4.2 mmol/L (3.3-5.1); Sodium 134 mmol/L (135-145); Total Protein 5.5 g/dL (6.5-8.0)
[2022-05-21 10:58] VITALS: BP 135/68; PULSE 64; RESP 19; TEMP 36.7; O2SAT 99
[2022-05-21 11:21] LABS: Glucose, Whole Blood 175 mg/dL (60-115)
--- NOTE | 2022-05-21 11:50 | HO.PM.IMPN ---
Subjective Subjective Date of Service: 05/21/22 Interval History: Seen and examined this morning Follow-up for Staph bacteremia Still reporting mild right-sided flank/back pain. No urinary/bowel symptoms. No radicular pain Denies fever, chills Review of Systems Review of Systems: Yes all other systems are reviewed and are negative Constitutional Constitutional: Denies chills and Denies fever(s) Cardiovascular Cardiovascular: Denies chest pain, Denies palpitations and Denies dyspnea Respiratory Respiratory: Denies cough and Denies dyspnea Gastrointestinal Gastrointestinal: Denies abdominal pain, Denies nausea and Denies vomiting Endocrine Endocrine: Denies palpitations Physical Exam Vital Signs: Vital Signs: Last Vital Signs Temp 98.1 F 05/21/22 10:58 Pulse 64 05/21/22 10:58 Resp 19 05/21/22 10:58 BP 135/68 05/21/22 10:58 Pulse Ox 99 05/21/22 10:58 O2 Del Method 05/21/22 10:58 BMI result Body Mass Index 41.3 Const: General: cooperative, comfortable, no acute distress, alert and awake Nutritional Appearance: overweight Resp: Effort & Inspection: normal respiratory effort and able to speak in complete sentences Auscultation: clear to auscultation bilaterally Cardio: Heart sounds: Murmur heart sound present systolic GI: Inspection: No distended Palpation (GI): Soft to palpation and nontender Skin: Other: No rash appreciated Neuro: Other: Lower extremity strength equal bilaterally General: CN's II-XI intact bilaterally Objective Data Active Medications Acetaminophen (Acetaminophen 325 Mg Tablet) 650 mg PO Q6H PRN PRN Reason: Pain, Mild (Pain Scale 1-3) Last Admin: 05/20/22 08:59 Dose: 650 mg Documented By: DARIUS Aspirin (Aspirin Enteric Coated 81 Mg Tablet.) 81 mg PO BEDTIME [facility] Last Admin: 05/20/22 20:17 Dose: 81 mg Documented By: YOLI Atorvastatin Calcium (Atorvastatin Calcium 20 Mg Tablet) 20 mg PO BEDTIME [facility] Last Admin: 05/20/22 20:17 Dose: 20 mg Documented By: YOLI Clonidine HCl (Clonidine Hcl 0.1 Mg Tablet) 0.1 mg PO BID [facility]; Protocol Last Admin: 05/21/22 07:42 Dose: 0.1 mg Documented By: PEPITO Dextrose (Dextrose 50 % 25 Gm/50 Ml Syringe) 25 gm IVPUSH Q15M PRN; Protocol PRN Reason: per Hypoglycemia Standing Ord. Docusate Sodium (Docusate Sodium 100 Mg Capsule) 100 mg PO BID [facility] Last Admin: 05/21/22 07:43 Dose: 100 mg Documented By: PEPITO Glucose (Glucose Gel 15 Gm Gel..Gram.) 15 gm PO Q15M PRN; Protocol PRN Reason: per Hypoglycemia Standing Ord. Cefazolin Sodium 2 gm/ Sodium (Chloride) 50 mls @ 100 mls/hr IV Q8H [facility] Insulin Human Lispro (Insulin Lispro 100 Unit/Ml 3 Ml Vial) 0 unit SUBCUT QIDACHS [facility]; Protocol Last Admin: 05/21/22 11:26 Dose: 2 unit Documented By: PEPITO Multivitamins/Vitamin C (Multivitamin Tablet) 1 tab PO DAILY [facility] Last Admin: 05/21/22 07:43 Dose: 1 tab Documented By: PEPITO Ondansetron HCl (Ondansetron Hcl 4 Mg/2 Ml Vial) 4 mg IVPUSH Q8H PRN PRN Reason: Nausea and Vomiting Oxycodone HCl (Oxycodone Hcl Immed Release 5 Mg Tablet) 5 mg PO Q6H PRN PRN Reason: Pain, Severe (Pain Scale 7-10) Pharmacy Consult (Consult Rx Perform Med Rec) 1 each MISCELLANE ONCE PRN PRN Reason: Consult order Pharmacy Consult (Consult Rx Perform Med Rec) 1 each MISCELLANE ONCE PRN PRN Reason: Consult order Pharmacy Consult (Consult Rx Vancomycin Dosing) 1 each MISCELLANE DAILY PRN PRN Reason: Consult order Senna (Sennosides 8.6 Mg Tablet) 8.6 mg PO BID [facility] Last Admin: 05/21/22 07:43 Dose: 8.6 mg Documented By: PEPITO Sodium Chloride (0.9 % Sodium Chloride Flush 3 Ml Syringe) 3 ml IVFLUSH QSHIFT [facility] Last Admin: 05/21/22 07:43 Dose: 3 ml Documented By: PEPITO Tacrolimus (Tacrolimus 1 Mg Capsule) 1 mg PO BID [facility] Last Admin: 05/21/22 07:42 Dose: 1 mg Documented By: PEPITO Labs CBC & Chem 7: 05/21/22 08:31 05/21/22 08:31 Labs: Laboratory Results - last 24 hr 05/20/22 05/20/22 05/21/22 15:09 19:07 07:08 MCV MCH MCHC RDW Plt Count MPV Absolute Nucleated RBC Nucleated RBC % (auto) Anion Gap Estim Creat Clear Calc Estimated GFR POC Glucose 157 H 218 H 152 H Random Glucose Calcium Total Bilirubin Direct Bilirubin AST ALT Alkaline Phosphatase Total Protein Albumin 05/21/22 05/21/22 05/21/22 08:31 08:31 11:02 MCV 93.4 MCH 32.8 MCHC 35.1 RDW 13.3 Plt Count 107 L MPV 10.2 Absolute Nucleated RBC 0.000 Nucleated RBC % (auto) 0.0 Anion Gap 13 Estim Creat Clear Calc 47.9 Estimated GFR 49 POC Glucose 175 H Random Glucose 174 H Calcium 7.8 L Total Bilirubin 0.6 Direct Bilirubin 0.3 AST 30 ALT 17 Alkaline Phosphatase 69 Total Protein 5.5 L Albumin 2.9 L Microbiology Microbiology Results: Microbiology 05/19/22 22:06 Blood Culture - Preliminary Blood - Venous Prelim: GPC Gram Stain only 05/19/22 22:06 Blood Culture - Preliminary Blood - Venous Prelim: GPC Gram Stain only 05/19/22 05:36 Blood Culture - Final Blood - Venous Staphylococcus aureus 05/19/22 04:48 Blood Culture - Final Blood - Venous Staphylococcus aureus Assessment and Plan (1) Gram-positive bacteremia: Status: Acute Plan 71 year old male with a 2 day history of R back/flank pain with associated fevers and chills. He is admitted under obs for: 1. Sepsis due to MSSA bacteremia patient met sepsis criteria due to leukocytosis and tachypnea patient presented with right flank pain and mild erythema flank pain and erythema resolved, WBC normalized no fever blood cultures x2 positive for Staphylococcus aureus -DC vancomycin, continue Kefzol will order repeat blood cultures in AM patient is immunocompromised will follow clinical course closely -ID following -will obtain CT scan of abdomen/pelvis. If no source of infection will obtain lumbar spine MRI -ECHO pending 2. Cirrohosis -s/p liver transplant LFTs within normal monitor LFTs and continue his anti-rejection meds 3. DM hold orals take Januvia and repaglinide use sliding scale, diabetic diet 4. HTN BP in normal range except few high blood pressure readings on amlodipine 10 mg and lisinopril 2.5 mg daily at home, follow BP closely and resume home medication 5. HLD statin 6. chronic kidney disease stage 3 Chronic appears to be a baseline Follow renal function Full Code DVT pptx, place on compression boots due to low platelets and anemia patient will need continued inpatient hospitalization due to Staphylococcus bacteremia on IV antibiotics waiting for final culture report Quality Stroke Does the patient have a stroke diagnosis?: No VTE Prior VTE?: No VTE Risk Level:: Medical - moderate - high VTE Device Contraindication: N/A - Device Ordered VTE Drug Contraindication: N/A - Med Ordered
--- NOTE | 2022-05-21 15:45 | P.CNGI_ITS ---
History of Present Illness Data of Consult Service Date: 05/21/22 Requesting physician: Renae Mejia Primary Care Provider: Sherif Oconnor III, MD HPI Reason for consult: Duodenitis 71 YM with liver cirrhosis (reports not related to EtOH) - s/p liver transplant about 5 years ago, DM, Back surgery and chronic back pain, HTN, HLD seen at [facility] on 05/19/22 with a 2 day history of right sided back pain, severe in nature, non radiating with associated fevers and chills. PT reported that his current symptoms are different than his prior back surgery / osteomyelitis. He reported compliance with his anti-rejection medications and denied any sick contacts. Pt denied any chest pain, shortness of breath, abdominal pain. He reports a decrease in oral intake. ED COURSE: Labs showed leukocytosis and mildly elevated SCr / AST / ALT. On exam, there was concern for cellulitis vs early zoster. Pt was given analgesics and IV antibiotics and admitted for overnight observation due to his immunocompromised state. The pt reports his back pain has improved with IV analgesics. 05/21/[address] SCAN SHOWED: ?There is circumferential wall thickening and fat stranding of the proximal duodenum. These imaging findings are suggestive of duodenitis. No evidence of bowel perforation or abscess formation. *? Mild diverticulosis of the colon without diverticulitis. *? Chronic liver cirrhosis and splenomegaly. *? A slightly hyperdense structure projecting medial to the right kidney might represent a proteinaceous parapelvic cyst; it has decreased in size compared to 10/11/2014 and 10/18/2016. Review of Systems Review of Systems: Yes all other systems are reviewed and are negative [facility] Past Medical History Medical History Acute diastolic (congestive) heart failure Aortic stenosis Diabetes Duodenitis Fatty liver GERD (gastroesophageal reflux disease) Gram-positive bacteremia Hypercholesteremia Hypertension Non-rheumatic aortic stenosis Osteomyelitis PAF (paroxysmal atrial fibrillation) Family History Family History Mother Myocardial infarct Family history: reviewed and not pertinent Surgical History Surgical History History of back surgery Hx of colonoscopy Hx of lymph node excision Liver transplant recipient Social History Social History Household Members: Spouse and Children Housing: House Do you presently have visiting nurse or other home services: Yes (picc line antibiotics) Patient Tobacco Use Status: Never used Tobacco Advance Directives Date on File: 05/19/22 service: No Current occupational status: retired Meds Allergies Allergy/AdvReac Type Severity Reaction Status Date / Time ibuprofen [IBUPROFEN] Allergy Severe SWELLING Verified 06/02/22 14:39 peanut [PEANUTS] Allergy Unknown SWELLING Verified 06/02/22 14:39 Active Medications: Current Medications Acetaminophen (Acetaminophen 325 Mg Tablet) 650 mg PO Q6H PRN PRN Reason: Pain, Mild (Pain Scale 1-3) Last Admin: 05/20/22 08:59 Dose: 650 mg Aspirin (Aspirin Enteric Coated 81 Mg Tablet.Dr) 81 mg PO BEDTIME [facility] Last Admin: 05/20/22 20:17 Dose: 81 mg Atorvastatin Calcium (Atorvastatin Calcium 20 Mg Tablet) 20 mg PO BEDTIME [facility] Last Admin: 05/20/22 20:17 Dose: 20 mg Clonidine HCl (Clonidine Hcl 0.1 Mg Tablet) 0.1 mg PO BID [facility]; Protocol Last Admin: 05/21/22 07:42 Dose: 0.1 mg Dextrose (Dextrose 50 % 25 Gm/50 Ml Syringe) 25 gm IVPUSH Q15M PRN; Protocol PRN Reason: per Hypoglycemia Standing Ord. Docusate Sodium (Docusate Sodium 100 Mg Capsule) 100 mg PO BID [facility] Last Admin: 05/21/22 07:43 Dose: 100 mg Glucose (Glucose Gel 15 Gm Gel..Gram.) 15 gm PO Q15M PRN; Protocol PRN Reason: per Hypoglycemia Standing Ord. Cefazolin Sodium 2 gm/ Sodium (Chloride) 50 mls @ 100 mls/hr IV Q8H [facility] Insulin Human Lispro (Insulin Lispro 100 Unit/Ml 3 Ml Vial) 0 unit SUBCUT QIDACHS [facility]; Protocol Last Admin: 05/21/22 11:26 Dose: 2 unit Multivitamins/Vitamin C (Multivitamin Tablet) 1 tab PO DAILY [facility] Last Admin: 05/21/22 07:43 Dose: 1 tab Ondansetron HCl (Ondansetron Hcl 4 Mg/2 Ml Vial) 4 mg IVPUSH Q8H PRN PRN Reason: Nausea and Vomiting Oxycodone HCl (Oxycodone Hcl Immed Release 5 Mg Tablet) 5 mg PO Q6H PRN PRN Reason: Pain, Severe (Pain Scale 7-10) Pharmacy Consult (Consult Rx Perform Med Rec) 1 each MISCELLANE ONCE PRN PRN Reason: Consult order Pharmacy Consult (Consult Rx Perform Med Rec) 1 each MISCELLANE ONCE PRN PRN Reason: Consult order Pharmacy Consult (Consult Rx Vancomycin Dosing) 1 each MISCELLANE DAILY PRN PRN Reason: Consult order Senna (Sennosides 8.6 Mg Tablet) 8.6 mg PO BID [facility] Last Admin: 05/21/22 07:43 Dose: 8.6 mg Sodium Chloride (0.9 % Sodium Chloride Flush 3 Ml Syringe) 3 ml IVFLUSH QSHIFT [facility] Last Admin: 05/21/22 07:43 Dose: 3 ml Tacrolimus (Tacrolimus 1 Mg Capsule) 1 mg PO BID [facility] Last Admin: 05/21/22 07:42 Dose: 1 mg Home Medications Medication Instructions Recorded Confirmed Last Taken Type ascorbic acid (vitamin C) 500 mg 500 mg PO DAILY 05/19/22 06/02/22 06/02/22 History tablet (Vitamin C) cholecalciferol (vitamin D3) 25 25 mcg PO DAILY 05/19/22 06/02/22 06/02/22 History mcg (1,000 unit) tablet (Vitamin D3) docusate sodium 100 mg capsule 100 mg PO BID 05/19/22 06/02/22 06/02/22 History (Colace) multivitamin 1 tab PO DAILY 05/19/22 06/02/22 06/02/22 History sennosides 8.6 mg tablet (senna) 17.2 mg PO BEDTIME 05/19/22 06/02/22 06/01/22 History amlodipine 10 mg tablet 10 mg PO DAILY 06/02/22 06/02/22 06/02/22 History atorvastatin 20 mg tablet 20 mg PO BEDTIME 06/02/22 06/02/22 06/01/22 History clonidine HCl 0.1 mg tablet 0.1 mg PO BID 06/02/22 06/02/22 06/02/22 History lisinopril 2.5 mg tablet 2.5 mg PO DAILY 06/02/22 06/02/22 06/02/22 History repaglinide 0.5 mg tablet 0.5 mg PO TIDAC 06/02/22 06/02/22 06/02/22 History sitagliptin 50 mg tablet (Januvia) 50 mg PO DAILY 06/02/22 06/02/22 06/02/22 History tacrolimus 1 mg capsule, 1 mg PO BID 06/02/22 06/02/22 06/02/22 History immediate-release Physical Exam Vital Signs: Vital Signs: Last Vital Signs Temp 98.1 F 05/21/22 10:58 Pulse 64 05/21/22 10:58 Resp 19 05/21/22 10:58 BP 135/68 05/21/22 10:58 Pulse Ox 99 05/21/22 10:58 O2 Del Method 05/21/22 10:58 BMI result Body Mass Index 41.3 Const: General: no acute distress Nutritional Appearance: obese Orientation/consciousness: patient oriented x3 Limitations: no limitations HEENT: Head: Yes normal to inspection Ears: hearing grossly normal bilaterally Eyes: Sclerae: sclerae normal Pupils: Equal, round and reactive pupils present Neck: Neck: Yes normal visual inspection Chest: Chest palpation & inspection: normal inspection of the chest Resp: Effort & Inspection: normal respiratory effort Auscultation: clear to auscultation bilaterally Cardio: Palpation: normal PMI Rate: regular rate Rhythm: regular rhythm Heart sounds: S1 normal heart sound present, S2 normal heart sound present and no murmurs GI: Palpation (GI): Soft to palpation, nontender and No hepatosplenomegaly present Auscultation: normal bowel sounds Rectal Exam - Male: Yes deferred Skin: General skin exam: no rashes or lesions noted Neuro: General: patient oriented x3, gait normal and moves all extremities Cranial nerves: Yes Equal, round and reactive pupils present Psych: Appearance: grossly normal Mental Status: mental status grossly normal Results Labs CBC & Chem 7: 05/25/22 05:13 05/25/22 05:13 Labs: Short CBC 05/21/22 Range/Units 08:31 WBC 6.1 (4.8-10.8) X10*3/uL Hgb 10.0 L (14.0-18.0) g/dl Hct 28.5 L (42.0-52.0) % Plt Count 107 L (160-400) X10*3/uL BMP 05/21/22 08:31 Sodium 134 L Potassium 4.2 Chloride 105 Carbon Dioxide 20 L BUN 32 H Creatinine 1.42 H Calcium 7.8 L Liver Function 05/21/22 Range/Units 08:31 Total Bilirubin 0.6 (0.0-1.0) mg/dL Direct Bilirubin 0.3 (0.0-0.5) mg/dL AST 30 (5-37) U/L ALT 17 (0-40) U/L Alkaline Phosphatase 69 (39-117) U/L Albumin 2.9 L (3.5-5.0) g/dL Microbiology Microbiology Results: Microbiology 05/19/22 22:06 Blood - Venous Blood Culture - Preliminary Prelim: GPC Gram Stain only 05/19/22 22:06 Blood - Venous Blood Culture - Preliminary Prelim: GPC Gram Stain only 05/19/22 05:36 Blood - Venous Blood Culture - Final Staphylococcus aureus 05/19/22 04:48 Blood - Venous Blood Culture - Final Staphylococcus aureus Assessment and Plan (1) Abnormal CT scan, gastrointestinal tract: Status: Acute Plan 71 YM with liver cirrhosis (reports not related to EtOH) - s/p liver transplant about 5 years ago, DM, Back surgery and chronic back pain, HTN, HLD seen at [facility] on 05/19/22 with a 2 day history of right sided back pain, severe in nature, non radiating with associated fevers and chills. 05/21/[address] SCAN SHOWED: ?There is circumferential wall thickening and fat stranding of the proximal duodenum. These imaging findings are suggestive of duodenitis. No evidence of bowel perforation or abscess formation. *? Mild diverticulosis of the colon without diverticulitis. *? Chronic liver cirrhosis and splenomegaly. *? A slightly hyperdense structure projecting medial to the right kidney might represent a proteinaceous parapelvic cyst; it has decreased in size compared to 10/11/2014 and 10/18/2016. RECOMMENDATIONS: 1. IV PPI 2. Agree with obtaining an MRI scan of the lumbar spine for further evaluation of back pain 3. Proceed with EGD in the am - procedure and potential complications including bleeding, perforation, reaction to anesthetic and aspiration were reviewed with the patient, his and daughters who were present at the bedside. Procedures Date of Service Date of Service: 05/21/22
[2022-05-21 15:49] LABS: Glucose, Whole Blood 188 mg/dL (60-115)
[2022-05-21 15:55] VITALS: BP 138/71; PULSE 68; RESP 16; TEMP 36.2; O2SAT 97
[2022-05-21] MEDS: Pantoprazole Sodium 40 MG/10 ML VIAL IVPUSH (16:36)
[2022-05-21 19:47] VITALS: BP 156/68; PULSE 70; RESP 18; TEMP 36.2; O2SAT 98
[2022-05-21 20:21] LABS: Glucose, Whole Blood 167 mg/dL (60-115)
[2022-05-21] MEDS: Atorvastatin Calcium 20 MG TABLET PO (20:28)
[2022-05-21] MEDS: Aspirin Enteric Coated 81 MG TABLET.DR PO (20:28)
[2022-05-21 23:53] VITALS: BP 133/83; PULSE 68; RESP 18; TEMP 37.1; O2SAT 97
[2022-05-22] VITALS (9 sets, daily range): BP systolic 107–158; BP diastolic 57–74; PULSE 62–96; RESP 16–18; TEMP 36.1–36.7; O2SAT 96–99
[2022-05-22] MEDS: oxyCODONE HCl Immed Release 5 MG TABLET PO ×2 (00:43→10:25)
[2022-05-22] MEDS: Pantoprazole Sodium 40 MG/10 ML VIAL IVPUSH (05:54)
[2022-05-22 07:00] LABS: Anion Gap 14 (12-20); Blood Urea Nitrogen 31 mg/dL (9-16); Calcium 7.8 mg/dL (8.4-10.2); Carbon Dioxide 20 mmol/L (22-29); Chloride 105 mmol/L (96-108); Creatinine Clr Calc Pharmacy 47.9; Estimated Glomerular Filt Rate 49; Glucose Random 168 mg/dL (60-115); Potassium 4.2 mmol/L (3.3-5.1); Sodium 135 mmol/L (135-145)
--- NOTE | 2022-05-22 07:00 | CA_ITS ---
Transthoracic Echocardiogram Patient (Last, First, Middle): Boaz Wells E Gender: Male Date of : 1950 Age: 71 Procedure Date: 05/22/2022 Procedure Type: Transthoracic Echocardiogram Location: S3E Height: 154.94 cm Weight: 98.88 kg BSA: 1.96 m2 Heart Rate: 104 bpm BP: 135 / 68 mmHg [place] [employer] Operator: SB Referring MD: Renae SOUZA Symptoms: STAPH BACTEREMIA, EVAL FOR VEGETATION Study Quality: Technically Difficult/BSA/Scanned supine ECG Rhythm: Atrial Fibrillation Conclusions: - The left ventricular systolic function is hyperdynamic. The visually estimated ejection fraction is >70%. - Widely variable gradients and calculated valve area due to atrial fibrillation with variable RR intervals. Possible severe aortic stenosis. - No obvious vegetation seen, but study is also technically difficult. Findings Procedure Information Contrast agent, definity, is being given per protocol without apparent complications. Left Ventricle Normal left ventricular cavity size. There is moderately increased left ventricular wall thickness. The left ventricular systolic function is hyperdynamic. The visually estimated ejection fraction is >70%. Diastolic function is indeterminate on the basis of available data. There is severe septal asymmetric hypertrophy. Right Ventricle The right ventricle was not well visualized. Atria The left atrium is moderately dilated. The right atrium was not well visualized. Aortic Valve There is moderate calcification of the aortic valve. Widely variable gradients and calculated valve area due to atrial fibrillation with variable RR intervals. Possible severe aortic stenosis. No significant regurgitation. Mitral Valve There is mild anterior mitral leaflet thickening. There is no mitral valve regurgitation. There is no mitral valve stenosis. Pulmonic Valve The pulmonic valve was not well visualized. Tricuspid Valve There is mild tricuspid valve regurgitation. There is no evidence of pulmonary hypertension. Great Vessels The asc aorta is normal in size. Small plaque is seen in the sinuses of Valsalva. Venous The inferior vena cava was not well visualized. Pericardium/Pleural There is no evidence of pericardial effusion. Prior Study Comparison Changes noted compared to prior study dated: 07/27/2016. Progression of aortic stenosis. Recommendations, Care & Conclusions Consider a HARVEY if clinically appropriate. Measurements 2D Linear Measurements IVSd: 1.86 0.6-0.9/0.6-1.0 cm LVIDd: 3.17 3.9-5.3/4.2-5.9 cm LVIDd Index: 1.62 2.4-3.2/2.2-3.1 cm/m2 LVIDs: 1.95 2.0-3.6 cm LVPWd: 1.56 0.7-1.1 cm LA Diam: 3.70 2.7-3.8/3.0-4.0 cm LAIDs Index: 1.89 1.5-2.3 cm/m2 LV Mass: 264.51 67-162/88-224 g LV Mass Index: 134.95 43-95/49-115 g/m2 LVOT Diam: 1.70 3.0+(-)1.3 cm 2D Systolic Function EF 4C: 88.40 >55% EF 2C: 87.40 >55% EF BiP: 87.50 >55% Aortic Valve AoV Pk [place]: 4.50 AoV Mn [place]: 2.82 AoV VTI: 0.94 AoV Pk Grad: 76.00 Aov Mn Grad: 37.00 THOMAS Cont.VTI: 0.69 LVOT LVOT Pk [place]: 1.19 LVOT Mn [place]: 0.87 LVOT VTI: 0.24 LVOT Pk Grad: 6.00 LVOT Mn Grad: 3.00 LVOT Diam: 1.70 LVOT Area: 2.27 Right Ventricle TVS' [place]: 12.30 Great Vessels Aorta Sinus of Valsalva: 2.90 2.0-3.5 cm Ao Asc: 3.60 2.1-3.4 cm Pulmonary Valve PV Pk [place]: 1.26 Peak PV Grad: 6.00 Updated in Other Vendor System with Status of Final Gabino Palacios MD electronically signed on 05/22/2022 1:32:54 PM with status of Final
[2022-05-22 07:30] LABS: Glucose, Whole Blood 166 mg/dL (60-115)
[2022-05-22] MEDS: cloNIDine HCL 0.1 MG TABLET PO ×2 (08:39→20:14)
[2022-05-22] MEDS: Multivitamin TABLET 1 TAB PO (08:40)
[2022-05-22] MEDS: Docusate Sodium 100 MG CAPSULE PO ×2 (08:40→20:14)
[2022-05-22] MEDS: 0.9 % Sodium Chloride Flush 3 ML SYRINGE IVFLUSH ×3 (08:40→20:15)
[2022-05-22] MEDS: Sennosides 8.6 MG TABLET PO ×2 (08:40→20:14)
[2022-05-22] MEDS: Tacrolimus 1 MG CAPSULE PO ×2 (08:40→20:14)
[2022-05-22 11:42] LABS: Glucose, Whole Blood 172 mg/dL (60-115)
[2022-05-22] MEDS: ceFAZolin Sodium/Dextrose,Iso 2 GM/50 ML PIGGYBACK IV ×2 (12:05→20:14)
[2022-05-22 13:38] LABS: Glucose, Whole Blood 174 mg/dL (60-115)
--- NOTE | 2022-05-22 13:44 | HO.PM.IMPN ---
Subjective Subjective Date of Service: 05/22/22 Interval History: Seen and examined this morning Follow-up for staph bacteremia CT scan of the abdomen showed evidence of duodenitis, seen by GI, recommend EGD which is scheduled for today No nausea vomiting, no abdominal pain at this time Review of Systems Review of Systems: Yes all other systems are reviewed and are negative Constitutional Constitutional: Denies chills and Denies fever(s) ENT Ears, Nose, Mouth, and Throat: Denies dizziness Cardiovascular Cardiovascular: Denies chest pain, Denies palpitations and Denies dyspnea Respiratory Respiratory: Denies cough and Denies dyspnea Neurologic Neurologic: Denies dizziness Endocrine Endocrine: Denies palpitations Physical Exam Vital Signs: Vital Signs: Last Vital Signs Temp 97.9 F 05/22/22 13:29 Pulse 74 05/22/22 13:29 Resp 18 05/22/22 13:29 BP 153/58 H 05/22/22 13:29 Pulse Ox 97 05/22/22 13:29 O2 Del Method 05/22/22 13:29 BMI result Body Mass Index 41.3 Const: General: cooperative, comfortable, no acute distress, alert and awake Nutritional Appearance: overweight Resp: Effort & Inspection: normal respiratory effort and able to speak in complete sentences Auscultation: clear to auscultation bilaterally Cardio: Heart sounds: Murmur heart sound present systolic GI: Inspection: No distended Palpation (GI): Soft to palpation and nontender Skin: Other: No rash appreciated Neuro: Other: Lower extremity strength equal bilaterally General: CN's II-XI intact bilaterally Objective Data Active Medications Acetaminophen (Acetaminophen 325 Mg Tablet) 650 mg PO Q6H PRN PRN Reason: Pain, Mild (Pain Scale 1-3) Last Admin: 05/20/22 08:59 Dose: 650 mg Documented By: DARIUS Aspirin (Aspirin Enteric Coated 81 Mg Tablet.) 81 mg PO BEDTIME [facility] Last Admin: 05/21/22 20:28 Dose: 81 mg Documented By: KARRI Atorvastatin Calcium (Atorvastatin Calcium 20 Mg Tablet) 20 mg PO BEDTIME [facility] Last Admin: 05/21/22 20:28 Dose: 20 mg Documented By: KARRI Clonidine HCl (Clonidine Hcl 0.1 Mg Tablet) 0.1 mg PO BID [facility]; Protocol Last Admin: 05/22/22 08:39 Dose: 0.1 mg Documented By: PEPITO Dextrose (Dextrose 50 % 25 Gm/50 Ml Syringe) 25 gm IVPUSH Q15M PRN; Protocol PRN Reason: per Hypoglycemia Standing Ord. Docusate Sodium (Docusate Sodium 100 Mg Capsule) 100 mg PO BID [facility] Last Admin: 05/22/22 08:40 Dose: 100 mg Documented By: PEPITO Glucose (Glucose Gel 15 Gm Gel..Gram.) 15 gm PO Q15M PRN; Protocol PRN Reason: per Hypoglycemia Standing Ord. Cefazolin Sodium/Dextrose (Ancef) 2 gm in 50 mls @ 100 mls/hr IV Q8H [facility] Last Infusion: 05/22/22 12:38 Dose: 0 mls/hr Documented By: PEPITO Insulin Human Lispro (Insulin Lispro 100 Unit/Ml 3 Ml Vial) 0 unit SUBCUT QIDACHS [facility]; Protocol Last Admin: 05/22/22 11:40 Dose: Not Given Documented By: PEPITO Non-Admin Reason: pt is NPO Multivitamins/Vitamin C (Multivitamin Tablet) 1 tab PO DAILY [facility] Last Admin: 05/22/22 08:40 Dose: 1 tab Documented By: PEPITO Ondansetron HCl (Ondansetron Hcl 4 Mg/2 Ml Vial) 4 mg IVPUSH Q8H PRN PRN Reason: Nausea and Vomiting Oxycodone HCl (Oxycodone Hcl Immed Release 5 Mg Tablet) 5 mg PO Q6H PRN PRN Reason: Pain, Severe (Pain Scale 7-10) Last Admin: 05/22/22 10:25 Dose: 5 mg Documented By: PEPITO Pantoprazole Sodium (Pantoprazole Sodium 40 Mg/10 Ml Vial) 40 mg IVPUSH DAILY@0630 [facility] Last Admin: 05/22/22 05:54 Dose: 40 mg Documented By: KARRI Pharmacy Consult (Consult Rx Perform Med Rec) 1 each MISCELLANE ONCE PRN PRN Reason: Consult order Pharmacy Consult (Consult Rx Perform Med Rec) 1 each MISCELLANE ONCE PRN PRN Reason: Consult order Pharmacy Consult (Consult Rx Vancomycin Dosing) 1 each MISCELLANE DAILY PRN PRN Reason: Consult order Senna (Sennosides 8.6 Mg Tablet) 8.6 mg PO BID [facility] Last Admin: 05/22/22 08:40 Dose: 8.6 mg Documented By: PEPITO Sodium Chloride (0.9 % Sodium Chloride Flush 3 Ml Syringe) 3 ml IVFLUSH QSHIFT [facility] Last Admin: 05/22/22 08:40 Dose: 3 ml Documented By: PEPITO Tacrolimus (Tacrolimus 1 Mg Capsule) 1 mg PO BID [facility] Last Admin: 05/22/22 08:40 Dose: 1 mg Documented By: PEPITO Labs CBC & Chem 7: 05/21/22 08:31 05/22/22 05:33 Labs: Laboratory Results - last 24 hr 05/21/22 05/21/22 05/21/22 15:25 20:16 20:51 Anion Gap Estim Creat Clear Calc Estimated GFR POC Glucose 188 H 167 H Random Glucose Calcium Random Vancomycin 10.0 L 05/22/22 05/22/22 05/22/22 05:33 07:25 11:35 Anion Gap 14 Estim Creat Clear Calc 47.9 Estimated GFR 49 POC Glucose 166 H 172 H Random Glucose 168 H Calcium 7.8 L Random Vancomycin 05/22/22 13:33 Anion Gap Estim Creat Clear Calc Estimated GFR POC Glucose 174 H Random Glucose Calcium Random Vancomycin Microbiology Microbiology Results: Microbiology 05/19/22 22:06 Blood Culture - Final Blood - Venous Staphylococcus aureus 05/19/22 22:06 Blood Culture - Final Blood - Venous Staphylococcus aureus Assessment and Plan (1) Abnormal CT scan, gastrointestinal tract: Status: Acute (2) Gram-positive bacteremia: Status: Acute Plan 71 year old male with a 2 day history of R back/flank pain with associated fevers and chills. He is admitted under obs for: 1. Sepsis due to MSSA bacteremia patient met sepsis criteria due to leukocytosis and tachypnea patient presented with right flank pain and mild erythema flank pain and erythema resolved, WBC normalized no fever blood cultures x2 positive for Staphylococcus aureus -DC vancomycin, continue Kefzol patient is immunocompromised will follow clinical course closely Echocardiogram negative for vegetation - does show severe , will need outpatient cardiology follow up -repeat blood cultures pending -ID following -CT abdomen/pelvis with no source of infection - Lumbar spine MRI pending Duodenitis Seen on CT abdomen/pelvis Seen by GI, can cause referred pain to back -plan for EGD today 2. Cirrohosis -s/p liver transplant LFTs within normal monitor LFTs and continue his anti-rejection meds 3. DM hold orals take Januvia and repaglinide use sliding scale, diabetic diet 4. HTN BP in normal range except few high blood pressure readings on amlodipine 10 mg and lisinopril 2.5 mg daily at home, follow BP closely and resume home medication 5. HLD statin 6. chronic kidney disease stage 3 Chronic appears to be a baseline Follow renal function Full Code DVT pptx, place on compression boots due to low platelets and anemia patient will need continued inpatient hospitalization due to Staphylococcus bacteremia on IV antibiotics waiting for final culture report Quality Stroke Does the patient have a stroke diagnosis?: No VTE Prior VTE?: No VTE Risk Level:: Medical - moderate - high VTE Device Contraindication: N/A - Device Ordered VTE Drug Contraindication: N/A - Med Ordered
--- NOTE | 2022-05-22 13:46 | P.CONAN_ITS ---
HPI - Anesthesia Eval Consult details Narrative: 71 yo male patient for EGD PMFSH Active Problems Active Problems: All Active Problems (Updated 05/22/22 @ 12:58 by Edvin Vinson MD) Abnormal CT scan, gastrointestinal tract (Acute) Gram-positive bacteremia (Acute) Cellulitis (Acute) Shingles (Acute) HTN Heart murmur Aortic stenosis H/o osteomyelitis S/p liver transplant 5yrs ago @ [facility]. Non-alcoholic cirrhosis Denies BIRDIE Past Medical History Medical History (Updated 05/22/22 @ 14:43 by Trina Wilson, RN) Diabetes Fatty liver GERD (gastroesophageal reflux disease) Hypercholesteremia Hypertension Functional capacity: uses cane/walker Family History Family history of problems with anesthesia: No Surgical History Surgical History (Updated 05/22/22 @ 14:41 by Trina Wilson RN) History of back surgery Hx of colonoscopy Hx of lymph node excision Liver transplant recipient History of Problems with Anesthesia: No Social History Social History Household Members: Spouse Housing: House Do you presently have visiting nurse or other home services: No Patient Tobacco Use Status: Never used Tobacco Advance Directives Date on File: 05/19/22 service: No Current occupational status: retired Meds Allergies Allergy/AdvReac Type Severity Reaction Status Date / Time ibuprofen [IBUPROFEN] Allergy Severe SWELLING Verified 05/22/22 14:41 peanut [PEANUTS] Allergy Unknown SWELLING Verified 05/22/22 14:41 Active Medications: Current Medications Acetaminophen (Acetaminophen 325 Mg Tablet) 650 mg PO Q6H PRN PRN Reason: Pain, Mild (Pain Scale 1-3) Last Admin: 05/20/22 08:59 Dose: 650 mg Aspirin (Aspirin Enteric Coated 81 Mg Tablet.) 81 mg PO BEDTIME PATRICIA Last Admin: 05/21/22 20:28 Dose: 81 mg Atorvastatin Calcium (Atorvastatin Calcium 20 Mg Tablet) 20 mg PO BEDTIME PATRICIA Last Admin: 05/21/22 20:28 Dose: 20 mg Clonidine HCl (Clonidine Hcl 0.1 Mg Tablet) 0.1 mg PO BID PATRICIA; Protocol Last Admin: 05/22/22 08:39 Dose: 0.1 mg Dextrose (Dextrose 50 % 25 Gm/50 Ml Syringe) 25 gm IVPUSH Q15M PRN; Protocol PRN Reason: per Hypoglycemia Standing Ord. Docusate Sodium (Docusate Sodium 100 Mg Capsule) 100 mg PO BID [facility] Last Admin: 05/22/22 08:40 Dose: 100 mg Glucose (Glucose Gel 15 Gm Gel..Gram.) 15 gm PO Q15M PRN; Protocol PRN Reason: per Hypoglycemia Standing Ord. Cefazolin Sodium/Dextrose (Ancef) 2 gm in 50 mls @ 100 mls/hr IV Q8H [facility] Last Infusion: 05/22/22 12:38 Dose: Infused Insulin Human Lispro (Insulin Lispro 100 Unit/Ml 3 Ml Vial) 0 unit SUBCUT QIDACHS [facility]; Protocol Last Admin: 05/22/22 11:40 Dose: Not Given Multivitamins/Vitamin C (Multivitamin Tablet) 1 tab PO DAILY [facility] Last Admin: 05/22/22 08:40 Dose: 1 tab Ondansetron HCl (Ondansetron Hcl 4 Mg/2 Ml Vial) 4 mg IVPUSH Q8H PRN PRN Reason: Nausea and Vomiting Oxycodone HCl (Oxycodone Hcl Immed Release 5 Mg Tablet) 5 mg PO Q6H PRN PRN Reason: Pain, Severe (Pain Scale 7-10) Last Admin: 05/22/22 10:25 Dose: 5 mg Pantoprazole Sodium (Pantoprazole Sodium 40 Mg/10 Ml Vial) 40 mg IVPUSH DAILY@0630 [facility] Last Admin: 05/22/22 05:54 Dose: 40 mg Pharmacy Consult (Consult Rx Perform Med Rec) 1 each MISCELLANE ONCE PRN PRN Reason: Consult order Pharmacy Consult (Consult Rx Perform Med Rec) 1 each MISCELLANE ONCE PRN PRN Reason: Consult order Pharmacy Consult (Consult Rx Vancomycin Dosing) 1 each MISCELLANE DAILY PRN PRN Reason: Consult order Senna (Sennosides 8.6 Mg Tablet) 8.6 mg PO BID [facility] Last Admin: 05/22/22 08:40 Dose: 8.6 mg Sodium Chloride (0.9 % Sodium Chloride Flush 3 Ml Syringe) 3 ml IVFLUSH QSHIFT [facility] Last Admin: 05/22/22 08:40 Dose: 3 ml Tacrolimus (Tacrolimus 1 Mg Capsule) 1 mg PO BID [facility] Last Admin: 05/22/22 08:40 Dose: 1 mg Home Medications Medication Instructions Recorded Confirmed Last Taken Type acetaminophen 500 mg tablet 500 mg PO Q6H PRN Pain 05/19/22 05/19/22 05/18/22 History amlodipine 10 mg tablet 1 tab PO DAILY 05/19/22 05/19/22 05/18/22 History ascorbic acid (vitamin C) 500 mg 500 mg PO DAILY 05/19/22 05/19/22 Unknown History tablet (Vitamin C) aspirin 81 mg tablet,delayed 1 tab PO BEDTIME 05/19/22 05/19/22 05/18/22 History release atorvastatin 20 mg tablet 1 tab PO BEDTIME 05/19/22 05/19/22 05/18/22 History cholecalciferol (vitamin D3) 25 25 mcg PO DAILY 05/19/22 05/19/22 Unknown History mcg (1,000 unit) tablet (Vitamin D3) clonidine HCl 0.1 mg tablet 1 tab PO BID 05/19/22 05/19/22 05/18/22 History docusate sodium 100 mg capsule 100 mg PO BID 05/19/22 05/19/22 Unknown History (Colace) lisinopril 2.5 mg tablet 1 tab PO DAILY 05/19/22 05/19/22 05/18/22 History multivitamin 1 tab PO DAILY 05/19/22 05/19/22 Unknown History repaglinide 0.5 mg tablet 1 tab PO TIDAC 05/19/22 05/19/22 05/18/22 History sennosides 8.6 mg tablet (senna) 8.6 mg PO BID 05/19/22 05/19/22 Unknown History sitagliptin 50 mg tablet (Januvia) 1 tab PO DAILY 05/19/22 05/19/22 05/18/22 History tacrolimus 1 mg capsule, 1 cap PO BID 05/19/22 05/19/22 05/18/22 History immediate-release Exam Exam Date and Time: May 22, 2022 134 Height,Weight and Vital Signs: Height 5 ft 1 in Weight 99.09 kg Last Vital Signs Temp 97.9 F 05/22/22 13:29 Pulse 74 05/22/22 13:29 Resp 18 05/22/22 13:29 BP 153/58 H 05/22/22 13:29 Pulse Ox 97 05/22/22 13:29 O2 Del Method 05/22/22 13:29 Pertinent Lab Results Pertinent Lab Results: Laboratory Tests 0805/19/22 05/19/22 02:40 02:40 04:48 WBC 12.3 H RBC 3.35 L Hgb 11.2 L Hct 31.7 L MCV 94.6 MCH 33.4 H MCHC 35.3 RDW 13.5 Plt Count 116 L D MPV 10.5 Immature Gran % (Auto) 0.9 H Neut % (Auto) 88.8 H Lymph % (Auto) 6.0 L Gonzales % (Auto) 4.1 Eos % (Auto) 0.0 Baso % (Auto) 0.2 Lymph # (Auto) 0.7 L [place] # (Auto) 0.5 Eos # (Auto) 0.0 Baso # (Auto) 0.0 Abs Immat Gran (auto) 0.11 H Absolute Neuts (auto) 10.9 H Absolute Nucleated RBC 0.000 Nucleated RBC % (auto) 0.0 Sodium 133 L Potassium 5.1 Chloride 104 Carbon Dioxide 17 L Anion Gap 17 BUN 37 H Creatinine 2.05 H Estim Creat Clear Calc 33.1 Estimated GFR 32 POC Glucose Random Glucose 222 H Calcium 8.7 Total Bilirubin 1.3 H Direct Bilirubin 0.4 AST 47 H D ALT 46 H Alkaline Phosphatase 78 Total Protein 6.7 Albumin 3.5 Urine Color Urine Appearance Urine pH Ur Specific [place] Urine Protein Urine Glucose (UA) Urine Ketones Urine Blood Urine Nitrite Ur Leukocyte Esterase Random Vancomycin COVID-19 (JACQUELYN) Negative COVID-19 Clin Com See Note 05/19/22 05/20/22 05/20/22 08:07 07:02 07:02 WBC 6.7 RBC 2.94 L Hgb 9.8 L Hct 28.0 L MCV 95.2 MCH 33.3 H MCHC 35.0 RDW 13.4 Plt Count 98 L MPV 10.7 Immature Gran % (Auto) Neut % (Auto) Lymph % (Auto) [place] % (Auto) Eos % (Auto) Baso % (Auto) Lymph # (Auto) [place] # (Auto) Eos # (Auto) Baso # (Auto) Abs Immat Gran (auto) Absolute Neuts (auto) Absolute Nucleated RBC 0.000 Nucleated RBC % (auto) 0.0 Sodium 133 L Potassium 4.5 Chloride 106 Carbon Dioxide 18 L Anion Gap 14 BUN 37 H Creatinine 1.65 H Estim Creat Clear Calc 41.2 Estimated GFR 41 POC Glucose Random Glucose 197 H Calcium 7.9 L D Total Bilirubin Direct Bilirubin AST ALT Alkaline Phosphatase Total Protein Albumin Urine Color Yellow Urine Appearance Clear Urine pH 5.0 Ur Specific [place] >= 1.030 H Urine Protein Trace Urine Glucose (UA) Negative Urine Ketones Trace Urine Blood Negative Urine Nitrite Negative Ur Leukocyte Esterase Negative Random Vancomycin COVID-19 (JACQUELYN) COVID-19 Clin Com 05/20/22 05/20/22 05/20/22 08:02 15:09 19:07 WBC RBC Hgb Hct MCV MCH MCHC RDW Plt Count MPV Immature Gran % (Auto) Neut % (Auto) Lymph % (Auto) [place] % (Auto) Eos % (Auto) Baso % (Auto) Lymph # (Auto) [place] # (Auto) Eos # (Auto) Baso # (Auto) Abs Immat Gran (auto) Absolute Neuts (auto) Absolute Nucleated RBC Nucleated RBC % (auto) Sodium Potassium Chloride Carbon Dioxide Anion Gap BUN Creatinine Estim Creat Clear Calc Estimated GFR POC Glucose 178 H 157 H 218 H Random Glucose Calcium Total Bilirubin Direct Bilirubin AST ALT Alkaline Phosphatase Total Protein Albumin Urine Color Urine Appearance Urine pH Ur Specific [place] Urine Protein Urine Glucose (UA) Urine Ketones Urine Blood Urine Nitrite Ur Leukocyte Esterase Random Vancomycin COVID-19 (JACQEULYN) COVID-19 Clin Com 05/21/22 05/21/22 05/21/22 07:08 08:31 08:31 WBC 6.1 RBC 3.05 L Hgb 10.0 L Hct 28.5 L MCV 93.4 MCH 32.8 MCHC 35.1 RDW 13.3 Plt Count 107 L MPV 10.2 Immature Gran % (Auto) Neut % (Auto) Lymph % (Auto) [place] % (Auto) Eos % (Auto) Baso % (Auto) Lymph # (Auto) [place] # (Auto) Eos # (Auto) Baso # (Auto) Abs Immat Gran (auto) Absolute Neuts (auto) Absolute Nucleated RBC 0.000 Nucleated RBC % (auto) 0.0 Sodium 134 L Potassium 4.2 Chloride 105 Carbon Dioxide 20 L Anion Gap 13 BUN 32 H Creatinine 1.42 H Estim Creat Clear Calc 47.9 Estimated GFR 49 POC Glucose 152 H Random Glucose 174 H Calcium 7.8 L Total Bilirubin 0.6 Direct Bilirubin 0.3 AST 30 ALT 17 Alkaline Phosphatase 69 Total Protein 5.5 L Albumin 2.9 L Urine Color Urine Appearance Urine pH Ur Specific [place] Urine Protein Urine Glucose (UA) Urine Ketones Urine Blood Urine Nitrite Ur Leukocyte Esterase Random Vancomycin COVID-19 (JACQUELYN) COVID-19 [place] Route 05/21/22 05/21/22 05/21/22 11:02 15:25 20:16 WBC RBC Hgb Hct MCV MCH MCHC RDW Plt Count MPV Immature Gran % (Auto) Neut % (Auto) Lymph % (Auto) [place] % (Auto) Eos % (Auto) Baso % (Auto) Lymph # (Auto) [place] # (Auto) Eos # (Auto) Baso # (Auto) Abs Immat Gran (auto) Absolute Neuts (auto) Absolute Nucleated RBC Nucleated RBC % (auto) Sodium Potassium Chloride Carbon Dioxide Anion Gap BUN Creatinine Estim Creat Clear Calc Estimated GFR POC Glucose 175 H 188 H 167 H Random Glucose Calcium Total Bilirubin Direct Bilirubin AST ALT Alkaline Phosphatase Total Protein Albumin Urine Color Urine Appearance Urine pH Ur Specific [place] Urine Protein Urine Glucose (UA) Urine Ketones Urine Blood Urine Nitrite Ur Leukocyte Esterase Random Vancomycin COVID-19 (JACQUELYN) COVID-19 [place] Route 05/21/22 05/22/22 05/22/22 20:51 05:33 07:25 WBC RBC Hgb Hct MCV MCH MCHC RDW Plt Count MPV Immature Gran % (Auto) Neut % (Auto) Lymph % (Auto) [place] % (Auto) Eos % (Auto) Baso % (Auto) Lymph # (Auto) [place] # (Auto) Eos # (Auto) Baso # (Auto) Abs Immat Gran (auto) Absolute Neuts (auto) Absolute Nucleated RBC Nucleated RBC % (auto) Sodium 135 Potassium 4.2 Chloride 105 Carbon Dioxide 20 L Anion Gap 14 BUN 31 H Creatinine 1.42 H Estim Creat Clear Calc 47.9 Estimated GFR 49 POC Glucose 166 H Random Glucose 168 H Calcium 7.8 L Total Bilirubin Direct Bilirubin AST ALT Alkaline Phosphatase Total Protein Albumin Urine Color Urine Appearance Urine pH Ur Specific [place] Urine Protein Urine Glucose (UA) Urine Ketones Urine Blood Urine Nitrite Ur Leukocyte Esterase Random Vancomycin 10.0 L COVID-19 (JACQUELYN) COVID-19 [place] Route 05/22/22 05/22/22 11:35 13:33 WBC RBC Hgb Hct MCV MCH MCHC RDW Plt Count MPV Immature Gran % (Auto) Neut % (Auto) Lymph % (Auto) [place] % (Auto) Eos % (Auto) Baso % (Auto) Lymph # (Auto) [place] # (Auto) Eos # (Auto) Baso # (Auto) Abs Immat Gran (auto) Absolute Neuts (auto) Absolute Nucleated RBC Nucleated RBC % (auto) Sodium Potassium Chloride Carbon Dioxide Anion Gap BUN Creatinine Estim Creat Clear Calc Estimated GFR POC Glucose 172 H 174 H Random Glucose Calcium Total Bilirubin Direct Bilirubin AST ALT Alkaline Phosphatase Total Protein Albumin Urine Color Urine Appearance Urine pH Ur Specific [place] Urine Protein Urine Glucose (UA) Urine Ketones Urine Blood Urine Nitrite Ur Leukocyte Esterase Random Vancomycin COVID-19 (JACQUELYN) COVID-19 Clin Com Airway Mallampati Class: II TM Dist: >3cm Neck ROM: Full Loose/Missing/Broken Teeth: No Heart: RRR + harsh systolic murmur Lungs: CTAB Assessment and Plan Assessment Anesthesia Assessment: Anesthesia Plan Discussed and Chart Reviewed Final Anesthetic Review Family History of Problems with Anesthesia: No History of Problems with Anesthesia: No NPO: Yes ASA Class: IV and Emergency Final Preanesthetic Review: No Changes in Pt Med Stat, Meds/Allgs Chart Reviewed, Consent Obtained/Reviewed and Anes Risks/Benef Reviewed Patient Risk: Intermediate Procedure Risk: Low Assessment/Block/Sedation in SS: Assess/Block/Sedation-SS Anesthetic Plan Anesthetic Plan: MAC: Disposition: Standard PACU and Inp. Admit - Standard Bed
[2022-05-22] MEDS: Lactated Ringers 1,000 ML 100 ML IVCONT (14:15)
--- NOTE | 2022-05-22 14:31 | MHC.SHP ---
Pre-Procedural Eval Section A Date of Service: 05/22/22 The patient is an INPATIENT: Yes Changes since office visit: Yes New Medical Problems, Yes Changes in Medication and Yes Patient answered all questions; No Cold of Flu in the past 2 weeks The History & Physical has been completed within 30 days and I have reviewed it.: Yes Section B Chief Complaint: Back Pain Allergies: Allergies Allergy/AdvReac Type Severity Reaction Status Date / Time ibuprofen [IBUPROFEN] Allergy Severe SWELLING Verified 05/19/22 01:16 peanut [PEANUTS] Allergy Unknown SWELLING Verified 05/19/22 01:16 Plan I have reviewed the history and physical and performed a pertinent physical examination on my patient. No changes have occurred unless specified.
--- NOTE | 2022-05-22 14:46 | MHC.CM.PN ---
PER ROUNDS DISCUSSION, PATIENT IS NOT YET MEDICALLY CLEARED FOR DISCHARGE TODAY R/T STAPHYLOCOCCUS BACTEREMIA/NEED FOR IV ANTIBIOTICS; REPEAT CULTURES. ANTICIPATE IV ANTIBIOTICS ON DISCHARGE. CM WILL CONTINUE TO FOLLOW FOR DISCHARGE NEEDS.
--- NOTE | 2022-05-22 15:06 | PM.OP ---
Brief Operative Note Date of Service: 05/22/22 Pre-op diagnosis: abnormal CT scan of the duodenum Post-op diagnosis: other ( gastritis, multiple gastric and duodenal ulcers) Procedure: FLEXIBLE TRANSORAL UPPER GASTROINTESTINAL ENDOSCOPY WITH BIOPSIES Consent: Indications for the procedure and potential complications of bleeding, perforation, reaction to medications and missed diagnosis were discussed with the patient and informed consent was obtained. Instrument: Olympus GIF H 190 mid size upper endoscope Monitoring: Vital signs and clinical assessment, continuous EKG monitoring, Pulse oximetry, Carbon Dioxide monitoring and blood pressure monitoring were done throughout the procedure. Procedure: The patient was placed in the left lateral decubitis position and pre-procedure medications were administered and a bite block was placed. The endoscope was inserted into the mouth and advanced under direct vision to the third part of duodenum. A careful inspection was made as the upper endoscope was withdrawn including a retroflexed examination of the proximal stomach; Findings and interventions are described below. Findings: Larynx: Normal Esophagus: GE junction at 36 cms. No esophagitis or Herrera's. Stomach: Moderate gastric erythema with multiple 1-2 cms chronic appearing ulcers in the distal body and antrum (without high risk stigmata for bleeding). Biopsies were obtained from the ulcers and gastric antrum. Grade 2 flap valve on retroflexed examination of the cardia. Duodenum: Multiple large 2-3 cms nonbleeding ulcers in the bulb and proximal 2nd part of the duodenum. Biopsies were obtained for histology and CMV Intervention: Biopsies as noted above Impression and Post Procedure Diagnosis: Endoscopy Findings: STOMACH: Moderate gastric erythema with multiple 1-2 cms chronic appearing ulcers in the distal body and antrum (without high risk stigmata for bleeding). Biopsies were obtained from the ulcers and gastric antrum. Grade 2 flap valve on retroflexed examination of the cardia. DUODENUM: Multiple large 2-3 cms nonbleeding ulcers in the bulb and proximal 2nd part of the duodenum (without high risk stigmata for bleeding). Biopsies were obtained for histology and CMV Plan: Await pathology results Omeprazole 20 mg twice daily. Repeat EGD in 3-4 months to confirm ulcers have healed. Pt to schedule a FU appt in the GI Clinic with Edvin Vinson M.D.. Above findings were reviewed with the patient and peptic ulcer disease handouts were given in the discharge area Surgeon: Edvin Vinson MD Anesthesia: MAC Was an Doubling Machine Operator used for this Procedure?: Yes Doubling Machine Operator: Yeny Tang Estimated blood loss (mL): 0 Pathology: other (A. Duodenal ulcers, B. Gastric antrum, C Gastric ulcers) Condition: stable Disposition: PACU
--- NOTE | 2022-05-22 15:47 | MHC.CM.PN ---
EMR REVIEWED, ROSINA PT WILL NEED 6WKS IV ABX AT HOME D/T BACTEREMIA AND POSSIBLE OSTEO SEEN ON LUMBAR SPINE MRI, PT'S FIRST SET BC'S POS AND 2ND SET DRAWN TODAY, ROSINA PT WILL REMAIN INPT THROUGH [facility] AND HAVE PICC LINE PLACED WEDNESDAY, PER PT REQUEST CM CONTACTED HIS BHANU [phone] AT 11:45AM [phone] WHO REPORTED ABOUT 5YRS AGO WHEN PT LEFT [facility] SHE GAVE HIM IV ABX TID, BHANU REPORTS SHE DOESN'T REMEMBER WHICH INFUSION COMPANY AND VNA THEY USED AND HAS NO PREFERENCE. CM SENT REFERRALS TO [facility] AND [facility]ULTIPLE VNA'S D/T [facility] INSURANCE, [facility] AND [facility] FOLLOWING.
--- NOTE | 2022-05-22 16:13 | MHC.CM.PN ---
ANTICIPATE 6 WEEKS OF IV ANTIBIOTICS. DAPHNEY LEUNG AND DEMI REDMOND WENT IN TO DISCUSS SNF PLACEMENTS IN ANTICIPATION HE MAY NEED A SNF. PATIENT JUST BACK FROM SURGERY, TEARY-EYED. MD AND OTHER PROVIDERS SEEING PATIENT, DAPHNEY's UNABLE TO HAVE DISCUSSION. CM PLACED THREE SNF REFERRALS: [facility], [facility], AND [facility]. PATIENT AND MAY HAVE PREFERENCE OTHER THEN THE 3 SELECTED. VNA: [facility]-WILLING TO ACCEPT PATIENT hi: [facility] FOLLOWING
[2022-05-22 16:28] LABS: Glucose, Whole Blood 165 mg/dL (60-115)
[2022-05-22] MEDS: Insulin Lispro 100 UNIT/ML 3 ML VIAL SUBCUT ×2 (17:19→20:14)
[2022-05-22] MEDS: Omeprazole 40 MG CAPSULE.DR PO (17:19)
[2022-05-22 19:43] LABS: Glucose, Whole Blood 163 mg/dL (60-115)
[2022-05-22] MEDS: Aspirin Enteric Coated 81 MG TABLET.DR PO (20:14)
[2022-05-22] MEDS: Atorvastatin Calcium 20 MG TABLET PO (20:14)
--- NOTE | 2022-05-23 | ECG_ITS ---
Test Reason : CP Blood Pressure : / mmHG Vent. Rate : 075 BPM Atrial Rate : 075 BPM P-R Int : 180 ms QRS Dur : 072 ms QT Int : 402 ms P-R-T Axes : 050 -09 022 degrees QTc Int : 448 ms Normal sinus rhythm Minimal voltage criteria for LVH, may be normal variant ( R in aVL ) Nonspecific T wave abnormality Abnormal ECG When compared with ECG of 11-JUN-2017 20:02, Nonspecific T wave abnormality is now Present Referred By: Renae Mejia Electronically Signed By:KALINA STEPHEN
[2022-05-23 03:59] VITALS: BP 121/60; PULSE 69; RESP 17; TEMP 36.3; O2SAT 95
[2022-05-23] MEDS: Lactated Ringers 1,000 ML 100 ML IVCONT (04:13)
[2022-05-23] MEDS: ceFAZolin Sodium/Dextrose,Iso 2 GM/50 ML PIGGYBACK IV ×3 (05:13→20:21)
[2022-05-23] MEDS: Omeprazole 40 MG CAPSULE.DR PO (06:17)
[2022-05-23 06:25] LABS: Alanine Aminotransferase 12 U/L (0-40); Albumin Level 2.7 g/dL (3.5-5.0); Alkaline Phosphatase 69 U/L (39-117); Anion Gap 13 (12-20); Aspartate Amino Transferase 22 U/L (5-37); Bilirubin Direct 0.2 mg/dL (0.0-0.5); Bilirubin Total 0.5 mg/dL (0.0-1.0); Blood Urea Nitrogen 32 mg/dL (9-16); Calcium 7.8 mg/dL (8.4-10.2); Carbon Dioxide 22 mmol/L (22-29); Chloride 105 mmol/L (96-108); Creatinine Clr Calc Pharmacy 45.6; Estimated Glomerular Filt Rate 46; Glucose Random 166 mg/dL (60-115); Potassium 4.4 mmol/L (3.3-5.1); Sodium 136 mmol/L (135-145); Total Protein 5.3 g/dL (6.5-8.0)
[2022-05-23 07:48] LABS: Glucose, Whole Blood 160 mg/dL (60-115)
[2022-05-23 08:00] VITALS: BP 143/67; PULSE 64; RESP 16; TEMP 36.3; O2SAT 95
[2022-05-23] MEDS: cloNIDine HCL 0.1 MG TABLET PO ×2 (08:12→20:21)
[2022-05-23] MEDS: Tacrolimus 1 MG CAPSULE PO ×2 (08:12→20:21)
[2022-05-23] MEDS: Docusate Sodium 100 MG CAPSULE PO ×2 (08:12→20:21)
[2022-05-23] MEDS: Multivitamin TABLET 1 TAB PO (08:12)
[2022-05-23] MEDS: Insulin Lispro 100 UNIT/ML 3 ML VIAL SUBCUT ×4 (08:13→20:21)
[2022-05-23] MEDS: Sennosides 8.6 MG TABLET PO ×2 (08:14→20:21)
--- NOTE | 2022-05-23 09:46 | P.PNIM_ITS ---
Subjective Subjective Date of Service: 05/23/22 Interval History: Seen and examined this morning Follow-up for bacteremia, osteomyelitis Back pain improving. Denies fever, chills Status post endoscopy yesterday revealing duodenitis. Denies abdominal pain, nausea or vomiting Also have echocardiogram while revealed severe - denies chest pain, sob, syncope Review of Systems Review of Systems: Yes all other systems are reviewed and are negative Constitutional Constitutional: Denies chills and Denies fever(s) ENT Ears, Nose, Mouth, and Throat: Denies dizziness Cardiovascular Cardiovascular: Denies chest pain, Denies palpitations and Denies dyspnea Respiratory Respiratory: Denies cough and Denies dyspnea Gastrointestinal Gastrointestinal: Denies abdominal pain, Denies nausea and Denies vomiting Neurologic Neurologic: Denies dizziness Endocrine Endocrine: Denies palpitations Physical Exam Vital Signs: Vital Signs: Last Vital Signs Temp 97.4 F 05/23/22 08:00 Pulse 64 05/23/22 08:00 Resp 16 05/23/22 08:00 BP 143/67 H 05/23/22 08:00 Pulse Ox 95 05/23/22 08:00 O2 Del Method 05/23/22 08:00 O2 Flow Rate 5 05/22/22 15:09 BMI result Body Mass Index 41.3 Const: General: cooperative, comfortable, no acute distress, alert and awake Nutritional Appearance: overweight Resp: Effort & Inspection: normal respiratory effort and able to speak in complete sentences Auscultation: clear to auscultation bilaterally Cardio: Heart sounds: Murmur heart sound present systolic GI: Inspection: No distended Palpation (GI): Soft to palpation and nontender Skin: Other: No rash appreciated Neuro: Other: Lower extremity strength equal bilaterally General: CN's II-XI intact bilat erally Extrem: General: Yes no pedal edema Objective Data Active Medications Acetaminophen (Acetaminophen 325 Mg Tablet) 650 mg PO Q6H PRN PRN Reason: Pain, Mild (Pain Scale 1-3) Last Admin: 05/20/22 08:59 Dose: 650 mg Documented By: DARIUS Aspirin (Aspirin Enteric Coated 81 Mg Tablet.) 81 mg PO BEDTIME [facility] Last Admin: 05/22/22 20:14 Dose: 81 mg Documented By: KOSTA Atorvastatin Calcium (Atorvastatin Calcium 20 Mg Tablet) 20 mg PO BEDTIME [facility] Last Admin: 05/22/22 20:14 Dose: 20 mg Documented By: KOSTA Clonidine HCl (Clonidine Hcl 0.1 Mg Tablet) 0.1 mg PO BID [facility]; Protocol Last Admin: 05/23/22 08:12 Dose: 0.1 mg Documented By: MARILOU Dextrose (Dextrose 50 % 25 Gm/50 Ml Syringe) 25 gm IVPUSH Q15M PRN; Protocol PRN Reason: per Hypoglycemia Standing Ord. Docusate Sodium (Docusate Sodium 100 Mg Capsule) 100 mg PO BID [facility] Last Admin: 05/23/22 08:12 Dose: 100 mg Documented By: MARILOU Glucose (Glucose Gel 15 Gm Gel..Gram.) 15 gm PO Q15M PRN; Protocol PRN Reason: per Hypoglycemia Standing Ord. Cefazolin Sodium/Dextrose (Ancef) 2 gm in 50 mls @ 100 mls/hr IV Q8H [facility] Last Infusion: 05/23/22 06:22 Dose: 0 mls/hr Documented By: KOSTA Insulin Human Lispro (Insulin Lispro 100 Unit/Ml 3 Ml Vial) 0 unit SUBCUT QIDACHS [facility]; Protocol Last Admin: 05/23/22 08:13 Dose: 2 unit Documented By: MARILOU Multivitamins/Vitamin C (Multivitamin Tablet) 1 tab PO DAILY [facility] Last Admin: 05/23/22 08:12 Dose: 1 tab Documented By: MARILOU Omeprazole (Omeprazole 20 Mg Capsule.Dr) 20 mg PO BID@0630,1630 [facility] Ondansetron HCl (Ondansetron Hcl 4 Mg/2 Ml Vial) 4 mg IVPUSH Q8H PRN PRN Reason: Nausea and Vomiting Ondansetron HCl (Ondansetron Hcl 4 Mg/2 Ml Vial) 4 mg IVPUSH ONCE PRN PRN Reason: Nausea and Vomiting Oxycodone HCl (Oxycodone Hcl Immed Release 5 Mg Tablet) 5 mg PO Q6H PRN PRN Reason: Pain, Severe (Pain Scale 7-10) Last Admin: 05/22/22 10:25 Dose: 5 mg Documented By: PEPITO Pharmacy Consult (Consult Rx Perform Med Rec) 1 each MISCELLANE ONCE PRN PRN Reason: Consult order Pharmacy Consult (Consult Rx Perform Med Rec) 1 each MISCELLANE ONCE PRN PRN Reason: Consult order Pharmacy Consult (Consult Rx Vancomycin Dosing) 1 each MISCELLANE DAILY PRN PRN Reason: Consult order Senna (Sennosides 8.6 Mg Tablet) 8.6 mg PO BID [facility] Last Admin: 05/23/22 08:14 Dose: 8.6 mg Documented By: MARILOU Sodium Chloride (0.9 % Sodium Chloride Flush 3 Ml Syringe) 3 ml IVFLUSH QSHIFT [facility] Last Admin: 05/23/22 08:13 Dose: Not Given Documented By: MARILOU Non-Admin Reason: IV Running Tacrolimus (Tacrolimus 1 Mg Capsule) 1 mg PO BID [facility] Last Admin: 05/23/22 08:12 Dose: 1 mg Documented By: MARILOU Labs CBC & Chem 7: 05/21/22 08:31 05/23/22 05:36 Labs: Laboratory Results - last 24 hr 05/22/22 05/22/22 05/22/22 11:35 13:33 16:13 Anion Gap Estim Creat Clear Calc Estimated GFR POC Glucose 172 H 174 H 165 H Random Glucose Calcium Total Bilirubin Direct Bilirubin AST ALT Alkaline Phosphatase Total Protein Albumin 05/22/22 05/23/22 05/23/22 19:35 05:36 07:40 Anion Gap 13 Estim Creat Clear Calc 45.6 Estimated GFR 46 POC Glucose 163 H 160 H Random Glucose 166 H Calcium 7.8 L Total Bilirubin 0.5 Direct Bilirubin 0.2 AST 22 ALT 12 Alkaline Phosphatase 69 Total Protein 5.3 L Albumin 2.7 L Microbiology Microbiology Results: Microbiology 05/19/22 22:06 Blood Culture - Final Blood - Venous Staphylococcus aureus 05/19/22 22:06 Blood Culture - Final Blood - Venous Staphylococcus aureus Assessment and Plan (1) Gram-positive bacteremia: Status: Acute (2) Duodenitis: Status: Acute (3) Aortic stenosis: Status: Acute (4) Osteomyelitis: Status: Acute Plan 71 year old male with a 2 day history of R back/flank pain with associated fevers and chills. He is admitted under obs for: Sepsis secondary to MSSA bacteremia/ostemyelitis L1/L2 patient initially met sepsis criteria due to leukocytosis and tachypnea, both have resolved. pt has remained afebrile patient presented with right flank pain and mild erythema of back - initially was treated for cellulitis with IV kefzol blood cultures x2 positive for Staphylococcus aureus, MSSA Echocardiogram negative for vegetation Lumbar spine MRI showing osteomyelitis of L1/L2 Seen by ID, recommend 6 weeks of IV abx - on kefzol now, can transition to daptomycin if needed for less frequent dosing -repeat blood cultures pending -will need PICC line Duodenitis Seen on CT abdomen/pelvis Seen by GI, s/p EGD 05/22 showing gastric erythema with multiple ulcers and multi ple large duodenal ulcers -omeprazole 20 mg b.i.d. 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 Cirrhosis -s/p liver transplant LFTs within normal continue tacolimas DM hold orals take Januvia and repaglinide use sliding scale, diabetic diet HTN BP in normal range except few high blood pressure readings on amlodipine 10 mg and lisinopril 2.5 mg daily at home, follow BP closely and resume home medication HLD statin chronic kidney disease stage 3 Chronic appears to be a baseline Follow renal function Full Code DVT pptx, place on compression boots due to low platelets and anemia patient will need continued inpatient hospitalization due to Staphylococcus bacteremia on IV antibiotics waiting for final culture report Quality Stroke Does the patient have a stroke diagnosis?: No VTE Prior VTE?: No VTE Risk Level:: Medical - moderate - high VTE Device Contraindication: N/A - Device Ordered VTE Drug Contraindication: N/A - Med Ordered
--- NOTE | 2022-05-23 11:28 | PM.CNCAR ---
History of Present Illness History of Present Illness Date of Service: 05/23/22 Chief complaint: Back Pain Narrative: This is a cardiology consultation regarding aortic stenosis seen on the echocardiogram. Patient is here because of sepsis/MSSA/osteomyelitis. Also diagnosed with large duodenal ulcers. He also carries a diagnosis of cirrhosis/liver transplant. From the cardiac standpoint, apparently noted to have a murmur since he was a child but he does not see Cardiology. Not sure if he had a bicuspid aortic valve or not. Any case an echocardiogram was performed during this hospitalization and that shows suggestion of severe aortic stenosis. Also of note, he seems to be in atrial fibrillation during the echocardiogram but patient is not aware of this. He was not on telemetry at that time and hence not clear if the rhythm during the initial phase of hospitalization. An EKG was just performed today and that shows sinus rhythm. With regard to symptoms, he states he does walk can do basic activities of daily living but can get short of breath with more than usual activity. If he takes his time, is generally okay. No palpitations. No anginal-type symptoms. No dizzy spells or syncopal episodes. Review of Systems Review of Systems: Yes all other systems are reviewed and are negative Constitutional: Constitutional: Reports as per HPI Eyes: Eyes: Reports as per HPI ENT: Reports as per HPI Cardiovascular: Cardiovascular: Reports as per HPI, Denies acrocyanosis, Denies cool extremities, Denies chest pain, Denies leg edema, Denies lightheadedness, Denies palpitations and Denies dyspnea Respiratory: Respiratory: Reports as per HPI, Reports no additional respiratory complaints and Denies dyspnea Gastrointestinal: Gastrointestinal: Reports as per HPI and Reports no additional gastrointestinal complaints Genitourinary: Genitourinary: Reports no additional male genitourinary complaints and Reports as per HPI Musculoskeletal: Musculoskeletal: Reports no additional musculoskeletal complaints and Reports as per HPI Integumentary/Breasts: Skin/Breast: Reports system reviewed and no additional complaints, except as docu Neurologic: Reports system reviewed and no additional complaints, except as documented and Reports as per HPI Psychiatric: Psychiatric: Reports no additional psychiatric complaints and Reports as per HPI Endocrine: Endocrine: Reports no additional endocrine complaints, Reports as per HPI and Denies palpitations Hematologic/Lymphatic: Hematologic/Lymphatic: Reports no additional hematologic/lymphatic complaints and Reports as per HPI Allergic/Immunologic: Allergic/Immunologic: Reports no additional allergic/immunologic complaints and Reports as per HPI [facility] Past Medical History Medical History (Updated 05/23/22 @ 11:33 by Gabino Palacios MD) Diabetes Fatty liver GERD (gastroesophageal reflux disease) Hypercholesteremia Hypertension Functional capacity: uses cane/walker Family History Family History (Updated 05/23/22 @ 11:32 by Gabino Palacios MD) Mother Myocardial infarct Family history: reviewed and not pertinent Surgical History Surgical History (Updated 05/22/22 @ 14:41 by Trina Wilson RN) History of back surgery Hx of colonoscopy Hx of lymph node excision Liver transplant recipient Social History Social History Household Members: Spouse Housing: House Do you presently have visiting nurse or other home services: No Patient Tobacco Use Status: Never used Tobacco Use of substances other than those prescribed or required for medical reasons: No Any prior treatment program specific to substance use: No Have you been hit, kicked, punched, or otherwise hurt by someone within the past year? If so, by whom?: No Do you feel safe in your current relationship?: Yes Is there a partner from a previous relationship who is making you feel unsafe now?: No Are you made to feel afraid or neglected: No Advance Directives: Yes Advance Directives on File: Yes Advance Directives Date on File: 05/19/22 Do you have thoughts of harming others: None Do you have a plan to hurt others: No Plan Recently lost weight without trying: No Nutrition Risks: No Nutritional Risk Poor oral hygiene: No service: No Current occupational status: retired [employer] Allergies Allergy/AdvReac Type Severity Reaction Status Date / Time ibuprofen [IBUPROFEN] Allergy Severe SWELLING Verified 05/22/22 14:41 peanut [PEANUTS] Allergy Unknown SWELLING Verified 05/22/22 14:41 Active Medications: Current Medications Acetaminophen (Acetaminophen 325 Mg Tablet) 650 mg PO Q6H PRN PRN Reason: Pain, Mild (Pain Scale 1-3) Last Admin: 05/20/22 08:59 Dose: 650 mg Aspirin (Aspirin Enteric Coated 81 Mg Tablet.) 81 mg PO BEDTIME [facility] Last Admin: 05/22/22 20:14 Dose: 81 mg Atorvastatin Calcium (Atorvastatin Calcium 20 Mg Tablet) 20 mg PO BEDTIME [facility] Last Admin: 05/22/22 20:14 Dose: 20 mg Clonidine HCl (Clonidine Hcl 0.1 Mg Tablet) 0.1 mg PO BID [facility]; Protocol Last Admin: 05/23/22 08:12 Dose: 0.1 mg Dextrose (Dextrose 50 % 25 Gm/50 Ml Syringe) 25 gm IVPUSH Q15M PRN; Protocol PRN Reason: per Hypoglycemia Standing Ord. Docusate Sodium (Docusate Sodium 100 Mg Capsule) 100 mg PO BID [facility] Last Admin: 05/23/22 08:12 Dose: 100 mg Glucose (Glucose Gel 15 Gm Gel..Gram.) 15 gm PO Q15M PRN; Protocol PRN Reason: per Hypoglycemia Standing Ord. Cefazolin Sodium/Dextrose (Ancef) 2 gm in 50 mls @ 100 mls/hr IV Q8H [facility] Last Infusion: 05/23/22 06:22 Dose: Infused Insulin Human Lispro (Insulin Lispro 100 Unit/Ml 3 Ml Vial) 0 unit SUBCUT QIDACHS [facility]; Protocol Last Admin: 05/23/22 08:13 Dose: 2 unit Multivitamins/Vitamin C (Multivitamin Tablet) 1 tab PO DAILY [facility] Last Admin: 05/23/22 08:12 Dose: 1 tab Omeprazole (Omeprazole 20 Mg Capsule.Dr) 20 mg PO BID@0630,1630 [facility] Ondansetron HCl (Ondansetron Hcl 4 Mg/2 Ml Vial) 4 mg IVPUSH Q8H PRN PRN Reason: Nausea and Vomiting Ondansetron HCl (Ondansetron Hcl 4 Mg/2 Ml Vial) 4 mg IVPUSH ONCE PRN PRN Reason: Nausea and Vomiting Oxycodone HCl (Oxycodone Hcl Immed Release 5 Mg Tablet) 5 mg PO Q6H PRN PRN Reason: Pain, Severe (Pain Scale 7-10) Last Admin: 05/22/22 10:25 Dose: 5 mg Pharmacy Consult (Consult Rx Perform Med Rec) 1 each MISCELLANE ONCE PRN PRN Reason: Consult order Pharmacy Consult (Consult Rx Perform Med Rec) 1 each MISCELLANE ONCE PRN PRN Reason: Consult order Pharmacy Consult (Consult Rx Vancomycin Dosing) 1 each MISCELLANE DAILY PRN PRN Reason: Consult order Senna (Sennosides 8.6 Mg Tablet) 8.6 mg PO BID [facility] Last Admin: 05/23/22 08:14 Dose: 8.6 mg Sodium Chloride (0.9 % Sodium Chloride Flush 3 Ml Syringe) 3 ml IVFLUSH QSHIFT [facility] Last Admin: 05/23/22 08:13 Dose: Not Given Tacrolimus (Tacrolimus 1 Mg Capsule) 1 mg PO BID [facility] Last Admin: 05/23/22 08:12 Dose: 1 mg Home Medications Medication Instructions Recorded Confirmed Last Taken Type acetaminophen 500 mg tablet 500 mg PO Q6H PRN Pain 05/19/22 05/19/22 05/18/22 History amlodipine 10 mg tablet 1 tab PO DAILY 05/19/22 05/19/22 05/18/22 History ascorbic acid (vitamin C) 500 mg 500 mg PO DAILY 05/19/22 05/19/22 Unknown History tablet (Vitamin C) aspirin 81 mg tablet,delayed 1 tab PO BEDTIME 05/19/22 05/19/22 05/18/22 History release atorvastatin 20 mg tablet 1 tab PO BEDTIME 05/19/22 05/19/22 05/18/22 History cholecalciferol (vitamin D3) 25 25 mcg PO DAILY 05/19/22 05/19/22 Unknown History mcg (1,000 unit) tablet (Vitamin D3) clonidine HCl 0.1 mg tablet 1 tab PO BID 05/19/22 05/19/22 05/18/22 History docusate sodium 100 mg capsule 100 mg PO BID 05/19/22 05/19/22 Unknown History (Colace) lisinopril 2.5 mg tablet 1 tab PO DAILY 05/19/22 05/19/22 05/18/22 History multivitamin 1 tab PO DAILY 05/19/22 05/19/22 Unknown History repaglinide 0.5 mg tablet 1 tab PO TIDAC 05/19/22 05/19/22 05/18/22 History sennosides 8.6 mg tablet (senna) 8.6 mg PO BID 05/19/22 05/19/22 Unknown History sitagliptin 50 mg tablet (Januvia) 1 tab PO DAILY 05/19/22 05/19/22 05/18/22 History tacrolimus 1 mg capsule, 1 cap PO BID 05/19/22 05/19/22 05/18/22 History immediate-release Physical Exam Vital Signs: Vital Signs: Last Vital Signs Temp 97.4 F 05/23/22 08:00 Pulse 64 05/23/22 08:00 Resp 16 05/23/22 08:00 BP 143/67 H 05/23/22 08:00 Pulse Ox 95 05/23/22 08:00 O2 Del Method 05/23/22 08:00 O2 Flow Rate 5 05/22/22 15:09 BMI result Body Mass Index 41.3 Const: General: comfortable and no acute distress Orientation/consciousness: patient oriented x3 HEENT: Other: Unremarkable Head: Yes normal to inspection Neck: Neck: Yes normal visual inspection Chest: Chest palpation & inspection: normal inspection of the chest Resp: Auscultation: clear to auscultation bilaterally Cardio: Palpation: normal PMI Heart sounds: S1 normal heart sound present, S2 abnormal (soft), no gallops, Murmur heart sound present systolic early, III/ and at the right sternal border and no rubs GI: Palpation (GI): Soft to palpation Back/Spine/Pelvis: Other: unremarkable Skin: General skin exam: no rashes or lesions noted Neuro: General: patient oriented x3 Extrem: General: Yes normal to inspection Psych: Mental Status: mental status grossly normal Objective Labs and Meds Result diagrams: 05/21/22 08:31 05/23/22 05:36 Lab results: Laboratory Results - last 24 hr 05/22/22 05/22/22 05/22/22 11:35 13:33 16:13 Sodium Potassium Chloride Carbon Dioxide Anion Gap BUN Creatinine Estim Creat Clear Calc Estimated GFR POC Glucose 172 H 174 H 165 H Random Glucose Calcium Total Bilirubin Direct Bilirubin AST ALT Alkaline Phosphatase Total Protein Albumin 05/22/22 05/23/22 05/23/22 19:35 05:36 07:40 Sodium 136 Potassium 4.4 Chloride 105 Carbon Dioxide 22 Anion Gap 13 BUN 32 H Creatinine 1.49 H Estim Creat Clear Calc 45.6 Estimated GFR 46 POC Glucose 163 H 160 H Random Glucose 166 H Calcium 7.8 L Total Bilirubin 0.5 Direct Bilirubin 0.2 AST 22 ALT 12 Alkaline Phosphatase 69 Total Protein 5.3 L Albumin 2.7 L ECG Interpretation: EKG not in the EMR but sent to me by tiger text. That shows sinus rhythm at 75/Min; possible LVH; nonspecific ST-T changes; normal TX and corrected QT. Imaging Radiologist's impression: Impressions Lumbar Spine MRI 05/22/22 11:18 IMPRESSION: - Please note that the patient refused contrast for this study. There are significant paravertebral T2 signal changes adjacent to a large right-sided anterior bridging osteophyte at L1-L2. There is bone marrow edema within this bridging osteophyte complex which could reflect focal osteomyelitis given the history. Adjacent T2 signal changes extending into the right retrocrural compartment and the adjacent right retroperitoneum may reflect cellulitis/phlegmon. No definite drainable abscess is seen with assessment limited given the lack of contrast. - At L2-L3, a left lateral disc osteophyte protrusion contacts the extraforaminal left L2 nerve root. - At L3-L4, lateral disc osteophyte contacts the extraforaminal L3 nerve roots bilaterally. - At L4-L5, there is complete disc volume loss and chronic opposing endplate height loss. Lateral osteophytic ridging results in moderate to severe right foraminal stenosis with mass effect on the exiting right L4 nerve root. Osteophytic ridging results in mass effect on the extraforaminal left L4 nerve root as well. - At L5-S1, multifactorial degenerative changes result in right subarticular zone stenosis with mass effect on the traversing right S1 nerve root as well as severe right and moderate left foraminal stenosis with mass effect on the exiting right greater than left L5 nerve roots. Assessment and Plan (1) Aortic stenosis: Qualifiers: Cardiac valve disease etiology: nonrheumatic Qualified Code(s): I35.0 - Nonrheumatic aortic (valve) stenosis Status: Acute Echocardiogram is suggestive of severe aortic stenosis. However gradients were widely variable as he seem to be in atrial fibrillation during the study. He does not have any obvious or overt symptoms except for shortness of breath on severe exertion. Will need to be followed in the office. At some point, will need valve replacement. Timing to be decided. Bacteremia will need to be for sort out. Per documentation, 6 weeks of antibiotics plan. (2) PAF (paroxysmal atrial fibrillation): Status: Acute During the echocardiogram, he was in atrial fibrillation. However EKG available now shows sinus rhythm. He was not in telemetry earlier. Hence not clear does ago in out of atrial fibrillation or not. Can keep him on telemetry for the rest of his hospitalization stay. When agreed by GI, consider Eliquis. Plan Discussed with Renae Mejia. Procedures Date of Service Date of Service: 05/23/22
[2022-05-23 11:41] LABS: Glucose, Whole Blood 239 mg/dL (60-115)
[2022-05-23 11:43] VITALS: BP 135/64; PULSE 70; RESP 16; TEMP 36.3; O2SAT 98
[2022-05-23 14:10] VITALS: O2SAT 95
[2022-05-23 15:25] VITALS: BP 145/68; PULSE 75; RESP 20; TEMP 36.6; O2SAT 95
[2022-05-23 16:23] LABS: Glucose, Whole Blood 245 mg/dL (60-115)
[2022-05-23] MEDS: Omeprazole 20 MG CAPSULE.DR PO (16:26)
[2022-05-23] MEDS: 0.9 % Sodium Chloride Flush 3 ML SYRINGE IVFLUSH ×2 (16:29→20:22)
--- NOTE | 2022-05-23 19:52 | HO.POSTANES ---
Post Anesthesia Evaluation Post Anesthesia Evaluation Vital Signs: Vital Signs Temp Pulse Resp BP Pulse Ox O2 Del Method 05/23/22 15:25 97.8 F 75 20 145/68 H 95 Room Air 05/23/22 14:10 95 Room Air 05/23/22 11:43 97.3 F 70 16 135/64 98 Room Air 05/23/22 08:00 97.4 F 64 16 143/67 H 95 Room Air Anesthesia: Monitored Mental Status: Awake Pain Control: Satisfactory Nausea/Vomiting: None Hydration: Adequate Anesthesia-Related Issues: No Anes. Related Issues
[2022-05-23 20:00] VITALS: BP 156/73; PULSE 71; RESP 18; TEMP 37.1; O2SAT 95
[2022-05-23] MEDS: Atorvastatin Calcium 20 MG TABLET PO (20:21)
[2022-05-23] MEDS: Apixaban 5 MG TABLET PO (20:21)
[2022-05-23 20:28] LABS: Glucose, Whole Blood 216 mg/dL (60-115)
[2022-05-24] VITALS (8 sets, daily range): BP systolic 133–156; BP diastolic 62–71; PULSE 62–80; RESP 15–18; TEMP 36–37; O2SAT 95–98
[2022-05-24] MEDS: Acetaminophen 325 MG TABLET 650 MG PO (00:18)
[2022-05-24] MEDS: ceFAZolin Sodium/Dextrose,Iso 2 GM/50 ML PIGGYBACK IV ×3 (05:16→19:39)
[2022-05-24] MEDS: Omeprazole 20 MG CAPSULE.DR PO ×2 (05:17→16:31)
[2022-05-24 07:30] LABS: Glucose, Whole Blood 157 mg/dL (60-115)
[2022-05-24] MEDS: Sennosides 8.6 MG TABLET PO ×2 (07:53→20:25)
[2022-05-24] MEDS: Multivitamin TABLET 1 TAB PO (07:53)
[2022-05-24] MEDS: cloNIDine HCL 0.1 MG TABLET PO ×2 (07:53→20:24)
[2022-05-24] MEDS: 0.9 % Sodium Chloride Flush 3 ML SYRINGE IVFLUSH ×3 (07:53→19:36)
[2022-05-24] MEDS: Tacrolimus 1 MG CAPSULE PO ×2 (07:53→20:25)
[2022-05-24] MEDS: Apixaban 5 MG TABLET PO ×2 (07:53→20:26)
[2022-05-24] MEDS: Docusate Sodium 100 MG CAPSULE PO ×2 (07:53→20:24)
[2022-05-24] MEDS: Insulin Lispro 100 UNIT/ML 3 ML VIAL SUBCUT ×3 (07:54→16:31)
--- NOTE | 2022-05-24 10:39 | HO.PM.IMPN ---
Subjective Subjective Date of Service: 05/24/22 Interval History: seen and examined this morning follow up for osteomyelitis, bacteremia, , atrial fibrillation no overnight events Back pain improving, no chest pain, palpitations, shortness of breath Voiding without difficulty, tolerating diet Denies fever, chills Review of Systems Review of Systems: Yes all other systems are reviewed and are negative Constitutional Constitutional: Denies chills and Denies fever(s) ENT Ears, Nose, Mouth, and Throat: Denies dizziness Cardiovascular Cardiovascular: Denies chest pain, Denies palpitations and Denies dyspnea Respiratory Respiratory: Denies cough and Denies dyspnea Gastrointestinal Gastrointestinal: Denies abdominal pain, Denies diarrhea, Denies nausea and Denies vomiting Neurologic Neurologic: Denies dizziness Endocrine Endocrine: Denies palpitations Physical Exam Vital Signs: Vital Signs: Last Vital Signs Temp 98.6 F 05/24/22 07:28 Pulse 62 05/24/22 07:28 Resp 18 05/24/22 07:28 BP 140/66 H 05/24/22 07:28 Pulse Ox 98 05/24/22 07:28 O2 Del Method 05/24/22 07:28 O2 Flow Rate 5 05/22/22 15:09 BMI result Body Mass Index 41.3 Const: General: cooperative, comfortable, no acute distress, alert and awake Nutritional Appearance: overweight Resp: Effort & Inspection: normal respiratory effort and able to speak in complete sentences Auscultation: clear to auscultation bilaterally Cardio: Heart sounds: Murmur heart sound present systolic GI: Inspection: No distended Palpation (GI): Soft to palpation and nontender Skin: Other: No rash appreciated Neuro: Other: Lower extremity strength equal bilaterally General: CN's II-XI intact bilaterally Extrem: General: Yes no pedal edema Objective Data Active Medications Acetaminophen (Acetaminophen 325 Mg Tablet) 650 mg PO Q6H PRN PRN Reason: Pain, Mild (Pain Scale 1-3) Last Admin: 05/24/22 00:18 Dose: 650 mg Documented By: KOSTA Apixaban (Apixaban 5 Mg Tablet) 5 mg PO BID [facility] Last Admin: 05/24/22 07:53 Dose: 5 mg Documented By: ELGIN Atorvastatin Calcium (Atorvastatin Calcium 20 Mg Tablet) 20 mg PO BEDTIME [facility] Last Admin: 05/23/22 20:21 Dose: 20 mg Documented By: KOSTA Clonidine HCl (Clonidine Hcl 0.1 Mg Tablet) 0.1 mg PO BID [facility]; Protocol Last Admin: 05/24/22 07:53 Dose: 0.1 mg Documented By: ELGIN Dextrose (Dextrose 50 % 25 Gm/50 Ml Syringe) 25 gm IVPUSH Q15M PRN; Protocol PRN Reason: per Hypoglycemia Standing Ord. Docusate Sodium (Docusate Sodium 100 Mg Capsule) 100 mg PO BID [facility] Last Admin: 05/24/22 07:53 Dose: 100 mg Documented By: ELGIN Glucose (Glucose Gel 15 Gm Gel..Gram.) 15 gm PO Q15M PRN; Protocol PRN Reason: per Hypoglycemia Standing Ord. Cefazolin Sodium/Dextrose (Ancef) 2 gm in 50 mls @ 100 mls/hr IV Q8H [facility] Last Infusion: 05/24/22 06:47 Dose: 0 mls/hr Documented By: KOSTA Insulin Human Lispro (Insulin Lispro 100 Unit/Ml 3 Ml Vial) 0 unit SUBCUT QIDACHS [facility]; Protocol Last Admin: 05/24/22 07:54 Dose: 2 unit Documented By: ELGIN Multivitamins/Vitamin C (Multivitamin Tablet) 1 tab PO DAILY [facility] Last Admin: 05/24/22 07:53 Dose: 1 tab Documented By: ELGIN Omeprazole (Omeprazole 20 Mg Capsule.Dr) 20 mg PO BID@0630,1630 [facility] Last Admin: 05/24/22 05:17 Dose: 20 mg Documented By: KOSTA Ondansetron HCl (Ondansetron Hcl 4 Mg/2 Ml Vial) 4 mg IVPUSH Q8H PRN PRN Reason: Nausea and Vomiting Ondansetron HCl (Ondansetron Hcl 4 Mg/2 Ml Vial) 4 mg IVPUSH ONCE PRN PRN Reason: Nausea and Vomiting Pharmacy Consult (Consult Rx Perform Med Rec) 1 each MISCELLANE ONCE PRN PRN Reason: Consult order Pharmacy Consult (Consult Rx Perform Med Rec) 1 each MISCELLANE ONCE PRN PRN Reason: Consult order Pharmacy Consult (Consult Rx Vancomycin Dosing) 1 each MISCELLANE DAILY PRN PRN Reason: Consult order Senna (Sennosides 8.6 Mg Tablet) 8.6 mg PO BID [facility] Last Admin: 05/24/22 07:53 Dose: 8.6 mg Documented By: ELGIN Sodium Chloride (0.9 % Sodium Chloride Flush 3 Ml Syringe) 3 ml IVFLUSH QSHIFT [facility] Last Admin: 05/24/22 07:53 Dose: 3 ml Documented By: ELGIN Tacrolimus (Tacrolimus 1 Mg Capsule) 1 mg PO BID [facility] Last Admin: 05/24/22 07:53 Dose: 1 mg Documented By: ELGIN Labs CBC & Chem 7: 05/21/22 08:31 05/23/22 05:36 Labs: Laboratory Results - last 24 hr 05/23/22 05/23/22 05/23/22 11:30 16:15 19:38 POC Glucose 239 H 245 H 216 H 05/24/22 07:24 POC Glucose 157 H Microbiology Microbiology Results: Microbiology 05/22/22 09:30 Blood Culture - Preliminary Blood - Venous No growth after 24 hours. 05/22/22 09:30 Blood Culture - Preliminary Blood - Venous No growth after 24 hours. Assessment and Plan (1) PAF (paroxysmal atrial fibrillation): Status: Acute (2) Osteomyelitis: Status: Acute (3) Aortic stenosis: Status: Acute (4) Duodenitis: Status: Acute (5) Gram-positive bacteremia: Status: Acute Plan 71 year old male with a 2 day history of R back/flank pain with associated fevers and chills. He is admitted under obs for: Sepsis secondary to MSSA bacteremia/ostemyelitis L1/L2 patient initially met sepsis criteria due to leukocytosis and tachypnea, both have resolved. pt has remained afebrile patient presented with right flank pain and mild erythema of back - initially was treated for cellulitis with IV kefzol blood cultures x2 positive for Staphylococcus aureus, MSSA. Repeat Blood cultures from 05/22 negative x 24 hours Echocardiogram negative for vegetation Lumbar spine MRI showing osteomyelitis of L1/L2 Seen by ID, recommend 6 weeks of IV abx - on kefzol now, can transition to daptomycin if needed for less frequent dosing -will need PICC line - ordered for Wednesday Duodenitis Seen on CT abdomen/pelvis Seen by GI, s/p EGD 05/22 showing gastric erythema with multiple ulcers and multiple large duodenal ulcers -omeprazole 20 mg b.i.d. -avoid NSAIDs -follow up biopsy for results of histology, CMV; outpatient follow up with GI Aortic Stenosis echo showing possible severe . 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 - will need outpatient cardiology follow up, will likely need valve replacement New onset paroxysmal atrial fibrillation Was noted to be in afib during ECHO no further episodes of afib on tele thus far discussed with GI - no stigmata of bleeding on EGD therefor ok to start AC -ASA stopped, Eliquis started - follow CBC -tele monitoring -outpatient follow up with cardiology Cirrhosis -s/p liver transplant LFTs wnl continue tacolimas DM oral meds on hold continue sliding scale, diabetic diet HTN BP meds on hold initially due to soft bp Resume lisinopril Norvasc on hold, can resume as bp allows HLD statin chronic kidney disease stage 3 Chronic appears to be a baseline renal function stable Full Code DVT pptx, place on compression boots due to low platelets and anemia patient will need continued inpatient hospitalization due to Staphylococcus bacteremia on IV antibiotics waiting for final culture report Quality Stroke Does the patient have a stroke diagnosis?: No VTE Prior VTE?: No VTE Risk Level:: Medical - moderate - high VTE Device Contraindication: N/A - Device Ordered VTE Drug Contraindication: N/A - Med Ordered
[2022-05-24 11:41] LABS: Hematocrit 26.9 % (42.0-52.0); Hemoglobin 9.3 g/dl (14.0-18.0); Mean Corpuscular HGB Conc 34.6 g/dl (31.0-36.0); Mean Corpuscular Hemoglobin 32.4 pg (27.0-33.0); Mean Corpuscular Volume 93.7 fL (80.0-98.0); Mean Platelet Volume 9.7 fL (9.4-12.4); Platelet Count 171 X10*3/uL (160-400); Red Blood Count 2.87 X10*6/uL (4.60-5.80); Red Cell Distribution Width 13.4 % (11.0-16.0); White Blood Count 3.9 X10*3/uL (4.8-10.8)
[2022-05-24 11:44] LABS: Glucose, Whole Blood 160 mg/dL (60-115)
[2022-05-24] MEDS: lisinopriL 2.5 MG TABLET PO (11:55)
[2022-05-24 16:17] LABS: Glucose, Whole Blood 209 mg/dL (60-115)
--- NOTE | 2022-05-24 16:21 | W.PM.OPN ---
Operative Note Operative Note Date of Service: 05/22/22 Narrative: Pre-op diagnosis: abnormal CT scan of the duodenum Post-op diagnosis:?other ( gastritis, multiple gastric and duodenal ulcers) Procedure: FLEXIBLE TRANSORAL UPPER GASTROINTESTINAL ENDOSCOPY WITH BIOPSIES Consent:?Indications for the procedure and potential complications of bleeding, perforation, reaction to medications and missed diagnosis were discussed with the patient and informed consent was obtained. Instrument:?Olympus GIF H 190 mid size upper endoscope Monitoring: Vital signs and clinical assessment, continuous EKG monitoring, Pulse oximetry, Carbon Dioxide monitoring and blood pressure monitoring were done throughout the procedure. Procedure:?The patient was placed in the left lateral decubitis position and pre-procedure medications were administered and a bite block was placed. The endoscope was inserted into the mouth and advanced under direct vision to the third part of duodenum. A careful inspection was made as the upper endoscope was withdrawn including a retroflexed examination of the proximal stomach; Findings and interventions are described below. Findings: Larynx:? Normal Esophagus: GE junction at 36 cms. No esophagitis or Herrera's. Stomach: Moderate gastric erythema with multiple 1-2 cms chronic appearing ulcers in the distal body and antrum. Biopsies were obtained from the ulcers and gastric antrum. Grade 2 flap valve on retroflexed examination of the cardia. Duodenum: Multiple large 2-3 cms? nonbleeding ulcers in the bulb and proximal 2nd part of the duodenum.? Biopsies were obtained for histology and CMV Intervention: Biopsies as noted above Impression and Post Procedure Diagnosis: Endoscopy Findings: STOMACH: Moderate gastric erythema with multiple 1-2 cms chronic appearing ulcers in the distal body and antrum (without high risk stigmata for bleeding). Biopsies were obtained from the ulcers and gastric antrum. Grade 2 flap valve on retroflexed examination of the cardia. DUODENUM: Multiple large 2-3 cms? nonbleeding ulcers in the bulb and proximal 2nd part of the duodenum (without high risk stigmata for bleeding).? Biopsies were obtained for histology and CMV Plan: Await pathology results Omeprazole 20 mg twice daily. Repeat EGD in 3-4 months to confirm ulcers have healed. Pt to schedule a FU appt in the GI Clinic with Edvin Vinson M.D.. Above findings were reviewed with the patient and? peptic ulcer disease handouts were given in the discharge area Surgeon: Edvin Vinson MD Anesthesia:?MAC Was an Senior Underwriting Assistant used for this Procedure?:?Yes Senior Underwriting Assistant:?Yeny Tang Estimated blood loss (mL):?0 Pathology:?other (A.? Duodenal ulcers, B.? Gastric antrum, C Gastric ulcers) Condition:?stable Disposition:?PACU
[2022-05-24 19:55] LABS: Glucose, Whole Blood 148 mg/dL (60-115)
[2022-05-24] MEDS: Atorvastatin Calcium 20 MG TABLET PO (20:24)
[2022-05-25 03:46] VITALS: BP 138/62; PULSE 70; RESP 16; TEMP 36.1; O2SAT 98
[2022-05-25] MEDS: Omeprazole 20 MG CAPSULE.DR PO ×2 (04:50→17:50)
[2022-05-25] MEDS: ceFAZolin Sodium/Dextrose,Iso 2 GM/50 ML PIGGYBACK IV ×2 (04:50→11:46)
[2022-05-25 05:57] LABS: Hematocrit 27.2 % (42.0-52.0); Hemoglobin 9.5 g/dl (14.0-18.0); Mean Corpuscular HGB Conc 34.9 g/dl (31.0-36.0); Mean Corpuscular Volume 94.4 fL (80.0-98.0); Mean Platelet Volume 9.9 fL (9.4-12.4); Platelet Count 211 X10*3/uL (160-400); Red Blood Count 2.88 X10*6/uL (4.60-5.80); Red Cell Distribution Width 13.3 % (11.0-16.0); White Blood Count 3.5 X10*3/uL (4.8-10.8)
[2022-05-25 06:15] LABS: Anion Gap 14 (12-20); Blood Urea Nitrogen 21 mg/dL (9-16); Carbon Dioxide 23 mmol/L (22-29); Chloride 105 mmol/L (96-108); Creatinine Clr Calc Pharmacy 49.3; Estimated Glomerular Filt Rate 51; Glucose Random 166 mg/dL (60-115); Potassium 4.4 mmol/L (3.3-5.1); Sodium 138 mmol/L (135-145)
[2022-05-25 07:15] VITALS: BP 149/68; PULSE 68; RESP 18; TEMP 36.6; O2SAT 98
[2022-05-25 07:23] LABS: Glucose, Whole Blood 155 mg/dL (60-115)
[2022-05-25] MEDS: Apixaban 5 MG TABLET PO (09:03)
[2022-05-25] MEDS: Sennosides 8.6 MG TABLET PO (09:03)
[2022-05-25] MEDS: Tacrolimus 1 MG CAPSULE PO (09:03)
[2022-05-25] MEDS: 0.9 % Sodium Chloride Flush 3 ML SYRINGE IVFLUSH ×2 (09:03→17:45)
[2022-05-25] MEDS: Multivitamin TABLET 1 TAB PO (09:03)
[2022-05-25] MEDS: Docusate Sodium 100 MG CAPSULE PO (09:03)
[2022-05-25] MEDS: cloNIDine HCL 0.1 MG TABLET PO (09:03)
[2022-05-25] MEDS: lisinopriL 2.5 MG TABLET PO (09:03)
[2022-05-25] MEDS: Insulin Lispro 100 UNIT/ML 3 ML VIAL SUBCUT ×2 (09:04→11:45)
[2022-05-25 11:20] VITALS: BP 135/61; PULSE 76; RESP 18; TEMP 36.2; O2SAT 97
[2022-05-25 11:24] LABS: Glucose, Whole Blood 260 mg/dL (60-115)
[2022-05-25 13:53] VITALS: O2SAT 97
--- NOTE | 2022-05-25 15:21 | MHC.CM.PN ---
Pt medically cleared for d/c home pending PICC line placement and tolerating first dose of Dapto. Pt will have [facility] and [facility] w/soc between 2-3pm tomorrow 05/26 and [facility] for transport.
--- NOTE | 2022-05-25 15:31 | P.PICC_ITS ---
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 Following completion of [place] Protocol the skin and soft tissues were anesthetized with 1% Lidocaine plain. Using ultrasound guidance, RIGHT BASILIC vein access was obtained ON FIRST ATTEMPT. Over an 0.018 wire through peel-away sheath, a 4FR SINGLE PICC line was positioned. Catheter length is 42CM internal length, 0CM external length, for a total trimmed length of 42CM. The procedure was performed in RM.272. Tip verification was performed by Ashok Madsen with Kwame 3CG. Tip located in SVC. Ultrasound was used to document vein patency and for needle entry. A formal ultrasound picture and cardiac rhythm strip was recorded. Vascular Yardage Control Clerk has released the line for use and it is currently dressed with a StatLock, Tegaderm, and CHG disc. Verification has been performed for blood return and line patency. [employer] CONSULTANT NOTIFIED ABOUT VENOUS ACCESS FLUSHING ORDERS AT 1529. Arm Circumference: 35CM Equipment: [employer] POWER SOLO Catheter Type: 4FR SINGLE LUMEN PICC Lot #: [id number]
[2022-05-25 15:50] VITALS: BP 139/63; PULSE 68; RESP 20; TEMP 36.4; O2SAT 98
--- NOTE | 2022-05-25 15:53 | PM.DS ---
DS: Providers Provider Date of Service: 05/25/22 Date of admission: 05/22/22 16:30 Primary care physician: Sherif Oconnor III, MD Consults: 05/20/22 10:55 Consult to Infectious Diseases Routine Consulting Provider: Belkis Healy Reason for consultation: gm pos bacteremia 05/21/22 15:27 Consult to Gastroenterology Routine Consulting Provider: Edvin Vinson Reason for consultation: duodenitis Has provider been notified: No 05/23/22 07:09 Consult to Cardiology Routine Consulting Provider: Gabino Palacios Reason for consultation: aortic stenosis Has provider been notified: No Attending physician on discharge: Mario Randle Discharging clinician: Corrine Gatica DS: Diagnosis Discharge Diagnosis (1) Abnormal CT scan, gastrointestinal tract: Status: Acute DS: Summary Hospital Course Hospital Course: HP as per admitting provider This is a 71 year old male with a PMH of Cirrhosis (reprots no related to EtOH) - s/p liver transplant about 5 years ago, DM, Back surgery and chronic back pain, HTN, HLD who presents to the ED with a 2 day history of right sided back pain, severe in nature, non radiating with associated fevers and chills. He reports that his current symptoms are different than his prior back surgery / osteomyelitis. He reports compliance with his anti-rejcection medications. He denies any sick contacts. He denies any chest pain, shortness of breath, abdominal pain. He reports a decrease in oral intake. Work up in the ED showed leukocytosis and mildly elevated SCr / AST / ALT. On exam, there was concern for cellulitis vs early zoster. He has been given analgesics and IV antibiotics. Given his immunocompromised state, he will be observed overnight. The pt reports his back pain has improved with IV analgesics . Sepsis secondary to MSSA bacteremia/ostemyelitis L1/L2 patient initially met sepsis criteria due to leukocytosis and tachypnea, both resolved. pt remained afebrile patient presented with right flank pain and mild erythema of back - initially was treated for cellulitis with IV kefzol blood cultures x2 positive for Staphylococcus aureus, MSSA. Repeat Blood cultures from 05/22 negative x 24 hours Echocardiogram negative for vegetation Lumbar spine MRI showing osteomyelitis of L1/L2 Seen by ID, recommend 6 weeks of IV abx> dapto Duodenitis Seen on CT abdomen/pelvis Seen by GI, s/p EGD 05/22 showing gastric erythema with multiple ulcers and multiple large duodenal ulcers omeprazole 20 mg b.i.d. avoid NSAIDs follow up biopsy for results of histology, CMV; outpatient follow up with GI Aortic Stenosis echo showing possible severe . 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 - will need outpatient cardiology follow up, will likely need valve replacement New onset paroxysmal atrial fibrillation Was noted to be in afib during ECHO no further episodes of afib on tele thus far discussed with GI - no stigmata of bleeding on EGD therefor ok to start AC ASA stopped, Eliquis started tele monitoring outpatient follow up with cardiology Cirrhosis -s/p liver transplant LFTs wnl continue tacolimas DM Continue home medications HTN Continue home medications HLD statin chronic kidney disease stage 3 Chronic appears to be a baseline renal function stable Time Spent with Patient Time attestation: Total time spent providing and/or coordinating discharge services: Discharge coordination time: Greater than 30 minutes Quality: Safe Use of Opioids Does Pt have an Active Cancer Diagnosis on the Problem List?: No Quality: Stroke Does the patient have a stroke diagnosis?: No Physical Exam Vital Signs: Vital Signs: Last Vital Signs Temp 97.5 F 05/25/22 15:50 Pulse 68 05/25/22 15:50 Resp 20 05/25/22 15:50 BP 139/63 05/25/22 15:50 Pulse Ox 98 05/25/22 15:50 O2 Del Method 05/25/22 15:50 O2 Flow Rate 5 05/22/22 15:09 BMI result Body Mass Index 41.3 Appearing in no acute distress head is normocephalic atraumatic eyes pupils are PERRLA sclera is anicteric mouth throat mucous membranes are intact and moist neck is supple no lymphadenopathy, no JVD noted lung sounds are clear to auscultation heart regular rate rhythm, clear S1, S2 positive bowel sounds, abdomen is soft, nontender neuro patient is alert x3, no focal deficits DS: Data Data Completed and Pending Pending studies at discharge: Pending at discharge 05/22/22 14:54 Surgical [PTH] Routine Labs on day of discharge: Laboratory Results - last 24 hr 05/24/22 05/24/22 05/25/22 15:41 19:21 05:13 WBC 3.5 L RBC 2.88 L Hgb 9.5 L Hct 27.2 L MCV 94.4 MCH 33.0 MCHC 34.9 RDW 13.3 Plt Count 211 MPV 9.9 Absolute Nucleated RBC 0.000 Nucleated RBC % (auto) 0.0 Sodium Potassium Chloride Carbon Dioxide Anion Gap BUN Creatinine Estim Creat Clear Calc Estimated GFR POC Glucose 209 H 148 H Random Glucose Calcium 05/25/22 05/25/22 05/25/22 05:13 07:18 11:18 WBC RBC Hgb Hct MCV MCH MCHC RDW Plt Count MPV Absolute Nucleated RBC Nucleated RBC % (auto) Sodium 138 Potassium 4.4 Chloride 105 Carbon Dioxide 23 Anion Gap 14 BUN 21 H Creatinine 1.38 Estim Creat Clear Calc 49.3 Estimated GFR 51 POC Glucose 155 H 260 H Random Glucose 166 H Calcium 8.0 L Preliminary micro results at discharge 05/22/22 09:30 Blood Culture - Preliminary Blood - Venous No growth after 48 hours. 05/22/22 09:30 Blood Culture - Preliminary Blood - Venous No growth after 48 hours. Discharge Plan Discharge Anticipated Discharge Date/Time: 05/25/22 15:39 Patient Disposition: Home Health Service Discharge Diagnosis: Staph bacteremiam MSSA Sepsis Osteomyelitis L1/L2 Duodenitis New onset atrial fibrillation Referrals: [facility] [Other] - 1 Day ([facility] will be delivering your IV antibiotic and Jyoti is the toy trains and accessories salesperson if you have any questions. ) [facility] [Outside] - 1 Day (A NURSE WILL CONTACT YOU FOR INITIAL VISIT FOR YOUR IV ANTIBIOTICS, FIRST VISIT WILL BE TOMORROW FOR YOUR FIRST DOSE OF IV ANTIBIOTICS. ) Sherif Oconnor III, MD [Primary Care Provider] - 1 Week Gabino Palacios MD [Physician] - 1 Week (New onset atrial fibrillation) Discharge Medications: New omeprazole 20 mg Capsule,Delayed Release(Dr/Ec) 20 mg PO BID@0630,1630 Qty: 60 0RF Eliquis 5 mg Tablet 5 mg PO BID Qty: 60 0RF daptomycin 500 mg recon soln 595 mg IV Q24H 42 Days Qty: 10 0RF Rx Instructions: administer over 30 mins Continued clonidine HCl 0.1 mg tablet 1 tab PO BID atorvastatin 20 mg tablet 1 tab PO BEDTIME aspirin 81 mg tablet,delayed release (DR/EC) 1 tab PO BEDTIME repaglinide 0.5 mg tablet 1 tab PO TIDAC amlodipine 10 mg tablet 1 tab PO DAILY lisinopril 2.5 mg tablet 1 tab PO DAILY tacrolimus 1 mg capsule 1 cap PO BID Januvia 50 mg tablet 1 tab PO DAILY multivitamin Tablet 1 tab PO DAILY sennosides [senna] 8.6 mg Tablet 8.6 mg PO BID acetaminophen 500 mg Tablet 500 mg PO Q6H PRN (Reason: Pain) ascorbic acid (vitamin C) [Vitamin C] 500 mg Tablet 500 mg PO DAILY docusate sodium [Colace] 100 mg Capsule 100 mg PO BID cholecalciferol (vitamin D3) [Vitamin D3] 25 mcg (1,000 unit) Tablet 25 mcg PO DAILY Discharge Orders: Discharge Order (Routine); Ordered 05/25/22 Ordered By: Corrine Gatica Diet: Advance to usual diet Activity on Discharge: As tolerated Stand Alone Forms: Patient Portal Discharge page Care Plan Goals: IV antibiotic care through visiting nurse services Health Concerns: Staph bacteremiam MSSA Sepsis Osteomyelitis L1/L2 Duodenitis New onset atrial fibrillation Plan of Treatment: Follow-up with consumer loan processor for management of Eliquis Report any bleeding to your primary care provider You will be on daptomycin for a total of 6 weeks. After the 6 weeks are over the visiting nurse may remove your PICC line. Assessment: See discharge summary
[2022-05-25 15:55] LABS: Glucose, Whole Blood 179 mg/dL (60-115)
[2022-05-25] MEDS: DAPTOmycin 500 MG in 0.9 % Sodium Chloride 50 ML 120 MG IV (17:43)
[2022-05-26 16:07] LABS: Tacrolimus Prograf 4.5 mcg/L
[2022-05-27 22:11] LABS: Gastrin 106 pg/mL (<=100)
== END 2022-05-25 18:40 | disposition home health service (06) | DRG 720 ==
LOC: HO.ED 06:03 → HO.EDOVER 09:13 → HO.S3 05-20 11:48
PROVIDERS: Hospitalist; Internal Medicine; Internal Medicine Gastroenterology; Physician Assistant Medical; Admitting Provider Family Medicine; Emergency Provider Emergency Medicine; PCP Internal Medicine; Visit Provider Nurse Practitioner Acute Care
PROC: 0DJ08ZZ Inspection of Upper Intestinal Tract, Via Natural or Artificial Opening Endoscopic (ICD-10-PCS; CPT 43235; principal; 2022-05-22 14:00)
DX: A41.01 Sepsis due to Methicillin susceptible Staphylococcus aureus (principal); D84.821 Immunodeficiency due to drugs; D69.59 Other secondary thrombocytopenia; L03.312 Cellulitis of back [any part except buttock and flank]; D63.1 Anemia in chronic kidney disease; K26.9 Duodenal ulcer, unspecified as acute or chronic, without hemorrhage or perforation; E11.22 Type 2 diabetes mellitus with diabetic chronic kidney disease; Z68.41 Body mass index [BMI] 40.0-44.9, adult; E66.3 Overweight; I12.9 Hypertensive chronic kidney disease with stage 1 through stage 4 chronic kidney disease, or unspecified chronic kidney disease; N18.30 Chronic kidney disease, stage 3 unspecified; K74.60 Unspecified cirrhosis of liver; E11.69 Type 2 diabetes mellitus with other specified complication; M86.9 Osteomyelitis, unspecified; K25.7 Chronic gastric ulcer without hemorrhage or perforation; I35.0 Nonrheumatic aortic (valve) stenosis; E78.5 Hyperlipidemia, unspecified; I48.0 Paroxysmal atrial fibrillation; K21.9 Gastro-esophageal reflux disease without esophagitis; Z20.822 Contact with and (suspected) exposure to COVID-19; Z94.4 Liver transplant status; Z91.010 Allergy to peanuts; Z88.6 Allergy status to analgesic agent; Z79.01 Long term (current) use of anticoagulants; Z79.899 Other long term (current) drug therapy
CPT/HCPCS: 36415; 36573; 72100; 72148; 74176; 80048; 80076; 80197; 80202; 81003; 82941; 82947; 85025; 85027; 87040; 87077; 87147; 87186; 87205; 87635; 88305; 88341; 88342; 93005; 93306; 96365; 96375; 99284; 99285; C1751; J0690; J0878; J1885; J2270; J3370; Q9957

== ENCOUNTER → 2022-06-02 09:27 | Outpatient (REF) | payer OTHER, SELFPAY ==
[2022-06-02 10:25] LABS: Hematocrit 24.4 % (42.0-52.0); Hemoglobin 8.4 g/dl (14.0-18.0); Mean Corpuscular HGB Conc 34.4 g/dl (31.0-36.0); Mean Corpuscular Hemoglobin 32.9 pg (27.0-33.0); Mean Corpuscular Volume 95.7 fL (80.0-98.0); Mean Platelet Volume 9.9 fL (9.4-12.4); Platelet Count 198 X10*3/uL (160-400); Red Blood Count 2.55 X10*6/uL (4.60-5.80); Red Cell Distribution Width 13.5 % (11.0-16.0); White Blood Count 3.3 X10*3/uL (4.8-10.8)
[2022-06-02 10:29] LABS: INTERNATIONAL NORM RATIO 1.7 (0.9-1.1); Prothrombin Time 19.9 SEC (10.0-13.1)
[2022-06-02 10:54] LABS: Anion Gap 18 (12-20); Blood Urea Nitrogen 59 mg/dL (9-16); Calcium 8.4 mg/dL (8.4-10.2); Carbon Dioxide 15 mmol/L (22-29); Chloride 110 mmol/L (96-108); Estimated Glomerular Filt Rate 22; Glucose Random 197 mg/dL (60-115); Potassium 4.7 mmol/L (3.3-5.1); Sodium 138 mmol/L (135-145)
== END ==
LOC: HO.CARD 09:27
PROVIDERS: PCP Internal Medicine; Visit Provider Internal Medicine
DX: I35.0 Nonrheumatic aortic (valve) stenosis (principal)
CPT/HCPCS: 36415; 80048; 85027; 85610

== ENCOUNTER 2022-06-02 13:18 | Inpatient (IN) | payer OTHER, SELFPAY ==
--- NOTE | ~2022-06-02 | XR_ITS ---
EXAMINATION: XR CHEST CLINICAL INFORMATION: Shortness of breath COMPARISON: Chest x-ray 07/26/2016 TECHNIQUE: 2 views of the chest were obtained. FINDINGS: Right-sided PICC line in place, tip difficult to clearly delineate though appears to terminate in the distal SVC. The lungs are clear. No airspace consolidation or pneumothorax. Slightly blunted the right posterior costophrenic sulcus suspicious for trace effusion. The cardiomediastinal silhouette is within normal limits. No acute osseous injury. 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 XR/XR chest 2V IMPRESSION: 1. Blunted posterior right costophrenic sulcus suspicious for trace right pleural effusion. 2. No airspace consolidation or evidence of pulmonary edema.
--- NOTE | ~2022-06-02 | US_ITS ---
EXAMINATION: US RETROPERITONEAL LIMITED (RENAL ONLY) CLINICAL INFORMATION: Evaluate acute kidney injury. COMPARISON: CT of the abdomen/pelvis dated 05/21/2022. TECHNIQUE: CT of the abdomen and pelvis 05/21/2022. FINDINGS: RIGHT KIDNEY: 12.3 x 5.8 x 5.4 cm (SAG x AP x TRV). Normal size with lobulated contour, unchanged. Renal cortical thickness is normal. No renal calculi or hydronephrosis. Simple midpole cyst measuring up to 1.3 cm. Parapelvic cysts seen on the prior CT are unable to be visualized on the current ultrasound examination. LEFT KIDNEY: 12.0 x 5.5 x 5.7 cm (SAG x AP x TRV). Normal size with lobulated contour, unchanged. Renal cortical thickness is normal. No calculi or focal parenchymal lesions. No hydronephrosis. US/US renal BI IMPRESSION: Previously seen parapelvic possible hyperdense cyst not well visualized on ultrasound examination. Simple left midpole renal cyst measuring 1.3 cm. Findings are not clinically significant and no dedicated follow up imaging is recommended. No hydronephrosis.
[2022-06-02 14:39] VITALS: BP 152/71; PULSE 86; RESP 20; TEMP 36.9; O2SAT 99; BMI 40.8
[2022-06-02 19:11] VITALS: BP 150/65; PULSE 83; TEMP 36.5; O2SAT 99
--- NOTE | 2022-06-02 19:36 | ED_ITS ---
HPI - General Adult General Chief complaint: General Medical Stated complaint: Abnormal labs Time Seen by Provider: 06/02/22 16:23 Source: patient and old records reviewed Mode of arrival: ambulatory Limitations: no limitations History of Present Illness HPI narrative: 71-year-old male with a history of ADKINS cirrhosis s/p liver transplant 5 years ago, history or afib on Eliquis, aortic stenosis, HFpEF with [place] [facility] [place] MSSA bacteremia due to spinal osteomyelitis who presents to the ER with abnormal lab work. patient was seeing Dr. Palacios today when his lab work showed an acute kidney injury and anemia. his BUN and creatinine were 59/2.89. When he was discharged on May 25 his BUN was 21 and his creatinine was 1.38. Patient was also noted to be anemic today. His H&H was 8.4/24.4. When he was admitted to the hospital on May 19 is H&H was 11.2/31.7 & 9.5/ 27.2 on discharge. Since discharge from hospital patient reports progressive shortness of breath, orthopnea and worsening lower extremity swelling. He says that doctor's remaining was going to start him on Lasix today but they never picked it up because he came to the hospital with abnormal labs. He denies any fever or chills. No abdominal pain. Denies any black or bloody stools. He reports mo ving his bowels more regularly and is dark brown. his reports that his appetite has gone down since discharge from the hospital. He has been drinking adequate amounts of fluids. MD complaint: Abnormal labs Onset (ago): day(s) Location: left, right and lower extremity Radiation: proximal Severity: severe Severity scale (1-10): 5 Quality: aching Pain Consistency: intermittent Relieving factors: other (sitting upright) Exacerbating factors: other (laying flat) Associated symptoms: loss of appetite, malaise and shortness of breath Treatments prior to arrival: none Related Data Home Medications Medication Instructions Recorded Confirmed ascorbic acid (vitamin C) 500 mg 500 mg PO DAILY 05/19/22 06/02/22 tablet (Vitamin C) cholecalciferol (vitamin D3) 25 25 mcg PO DAILY 05/19/22 06/02/22 mcg (1,000 unit) tablet (Vitamin D3) docusate sodium 100 mg capsule 100 mg PO BID 05/19/22 06/02/22 (Colace) multivitamin 1 tab PO DAILY 05/19/22 06/02/22 sennosides 8.6 mg tablet (senna) 17.2 mg PO BEDTIME 05/19/22 06/02/22 amlodipine 10 mg tablet 10 mg PO DAILY 06/02/22 06/02/22 atorvastatin 20 mg tablet 20 mg PO BEDTIME 06/02/22 06/02/22 clonidine HCl 0.1 mg tablet 0.1 mg PO BID 06/02/22 06/02/22 lisinopril 2.5 mg tablet 2.5 mg PO DAILY 06/02/22 06/02/22 repaglinide 0.5 mg tablet 0.5 mg PO TIDAC 06/02/22 06/02/22 sitagliptin 50 mg tablet (Januvia) 50 mg PO DAILY 06/02/22 06/02/22 tacrolimus 1 mg capsule, 1 mg PO BID 06/02/22 06/02/22 immediate-release Previous Rx's Medication Instructions Recorded apixaban 5 mg tablet (Eliquis) 5 mg PO BID #60 tabs 05/25/22 daptomycin 500 mg intravenous 500 mg IV Q24H 6 weeks #10 ea 05/25/22 solution omeprazole 20 mg capsule,delayed 20 mg PO BID@0630,1630 #60 caps 05/25/22 release furosemide 40 mg tablet (Lasix) 40 mg PO DAILY #90 tabs 06/02/22 Allergies Allergy/AdvReac Type Severity Reaction Status Date / Time ibuprofen [IBUPROFEN] Allergy Severe SWELLING Verified 06/02/22 14:39 peanut [PEANUTS] Allergy Unknown SWELLING Verified 06/02/22 14:39 Review of Systems Review of Systems: Constitutional: No Fever, No Chills ENT/Mouth: No sore throat, No Rhinorrhea, No Swallowing Difficulty Eyes: No Eye Pain, No Swelling, No Redness Cardiovascular: No Chest Pain, + SOB, + Orthopnea, + Edema Respiratory: No Cough, No Sputum, No Wheezing, No dyspnea Gastrointestinal: No Nausea, No Vomiting, No Diarrhea, No abdominal Pain, No Hematochezia, No Melena Genitourinary: No Dysuria, No Urinary Frequency, No Hematuria Musculoskeletal: No joint pain, No Myalgias Skin: No Skin Lesions, No rash Neuro: No Weakness, No Numbness, No Dizziness, No Headache Psych: No Anxiety/Panic, No Depression Heme/Lymph: No Bruising, No Lymphadenopathy Endocrine: No Polyuria, No Polydipsia [facility] Past Medical History Medical History (Updated 06/02/22 @ 21:52 by LIBBY Calvin) Acute diastolic (congestive) heart failure Aortic stenosis Diabetes Duodenitis Fatty liver GERD (gastroesophageal reflux disease) Gram-positive bacteremia Hypercholesteremia Hypertension Non-rheumatic aortic stenosis Osteomyelitis PAF (paroxysmal atrial fibrillation) Surgical History (Updated 06/02/22 @ 09:18 by Gabino Palacios MD) History of back surgery Hx of colonoscopy Hx of lymph node excision Liver transplant recipient Family History Family History Mother Myocardial infarct Social History Social History Household Members: Spouse Housing: House Do you presently have visiting nurse or other home services: No Patient Tobacco Use Status: Never used Tobacco Advance Directives: Yes Advance Directives on File: Yes Advance Directives Date on File: 05/19/22 service: No Current occupational status: retired Physical Exam ED Vital Signs: Vital Signs - 24 hr 06/02/22 14:39 06/02/22 19:11 Temperature 98.4 F 97.7 F Pulse Rate 86 83 Respiratory Rate 20 Blood Pressure 152/71 H 150/65 H Pulse Oximetry 99 99 Oxygen Delivery Method Room Air Room Air BMI result Body Mass Index 40.8 Appearance: Alert. Oriented X3. No acute distress. Eyes: Pupils equal, round and reactive to light. ENT: Pharynx normal. Neck: Normal inspection. Neck supple. +JVD CVS: Normal heart rate and rhythm. +systolic murmur Respiratory: No respiratory distress. Breath sounds normal. No rales Abdomen: Soft and nontender. +BS x4 Skin: Skin warm and dry. Normal skin color. Normal skin turgor. No rashes. Extremities: 4+ pitting lower extremity edema involving the lower legs Neuro: Oriented X 3. No motor deficit. No sensory deficit. Course Course Course Narrative: 71-year-old with history of liver transplant 5 years ago, AFib on Eliquis, aortic stenosis, recent admission here for spinal osteomyelitis on IV daptomycin via PICC line in the right upper extremity who presents to the ER with ZOILA and worsening anemia. Upon review of records he also had some GI bleeding during his admission for which he underwent an a EGD and colonoscopy. EGD showed multiple large nonbleeding duodenal ulcers as well as gastric ulcers. He was discharged on PPI and he was continued on his Eliquis.Will heme check stool. Patient has also had progressive shortness of breath, orthopnea and lower extr emity edema. Repeat labs are pending now. He has not eat or drink anything in the several he was waiting in the waiting room. Concern for possible GI bleed, possible cardiorenal syndrome. Will plan to repeat labs now for comparison. IV daptomycin has been ordered. He will require admission Reevaluation(s) Reevaluation #1: heme-positive brown stool. Given his significant peripheral edema, orthopnea will need to hold off on IVF. will plan to transfuse 1 unit of blood. Urine electrolytes are pending. He is on room air. Reevaluation #2: BNP 296. His albumin is low at 2.8. He also may benefit from some albumin as well and will need to be diuresed. will plan for admission. Spoke with hospitalist LIBBY who will admit the patient. Reevaluation #3: Hospitalist recommending holding off on blood transfusion today, spoke with blood bank who will hold a unit for him for 3 days. Patient updated on plan of care. Medical Decision Making Lab Data Result diagrams: 06/02/22 20:01 06/02/22 20:01 Labs: Lab Results 06/02/22 06/02/22 06/02/22 Range/Units 20:01 20:01 20:01 WBC 3.0 L (4.8-10.8) X10*3/uL RBC 2.37 L (4.60-5.80) X10*6/uL Hgb 7.7 L (14.0-18.0) g/dl Hct 22.3 L (42.0-52.0) % MCV 94.1 (80.0-98.0) fL MCH 32.5 (27.0-33.0) pg MCHC 34.5 (31.0-36.0) g/dl RDW 13.5 (11.0-16.0) % Plt Count 192 (160-400) X10*3/uL MPV 9.5 (9.4-12.4) fL Immature Gran % (Auto) 0.7 H (0.0-0.4) % Neut % (Auto) 44.6 L (45-73) % Lymph % (Auto) 46.3 H (20-40) % [place] % (Auto) 6.7 (2-11) % Eos % (Auto) 1.0 (0-4) % Baso % (Auto) 0.7 (0-2) % Lymph # (Auto) 1.4 (1.2-4.9) X10*3/uL [place] # (Auto) 0.2 (0.1-1.2) X10*3/uL Eos # (Auto) 0.0 (0.0-0.4) X10*3/uL Baso # (Auto) 0.0 (0.0-0.2) X10*3/uL Abs Immat Gran (auto) 0.02 (0.00-0.03) X10*3/uL Absolute Neuts (auto) 1.3 L (2.0-8.3) x10*3/uL Absolute Nucleated RBC 0.000 (0.0-0.012) X10*3/uL Nucleated RBC % (auto) 0.0 (0.0-0.2) /100WBC VBG pH (7.32-7.43) VBG pCO2 mmHg VBG pO2 mmHg VBG HCO3 (22-26) mmol/L VBG O2 Saturation % VBG Base Excess mmol/L Sodium 139 (135-145) mmol/L Potassium 4.5 (3.3-5.1) mmol/L Chloride 109 H (96-108) mmol/L Carbon Dioxide 19 L (22-29) mmol/L Anion Gap 16 (12-20) BUN 60 H (9-16) mg/dL Creatinine 2.72 H (0.5-1.4) mg/dL Estim Creat Clear Calc 24.8 Estimated GFR 23 Random Glucose 201 H (60-115) mg/dL Calcium 8.1 L (8.4-10.2) mg/dL Magnesium 2.2 (1.6-2.6) mg/dL Iron (45-160) mcg/dL TIBC (228-428) mcg/dL % Saturation (15-50) % Unsat Iron Binding ug/dL Total Bilirubin 0.6 (0.0-1.0) mg/dL Direct Bilirubin 0.3 (0.0-0.5) mg/dL AST 31 D (5-37) U/L ALT 16 (0-40) U/L Alkaline Phosphatase 104 D (39-117) U/L Total Creatine Kinase (38-174) U/L B-Natriuretic Peptide (<100) pg/mL Total Protein 7.1 D (6.5-8.0) g/dL Albumin 2.8 L (3.5-5.0) g/dL Stool Occult Blood (NEGATIVE) COVID-19 (JACQUELYN) Negative (Negative) COVID-19 Clin Com See Note Blood Type Antibody Screen Crossmatch 06/02/22 06/02/22 06/02/22 Range/Units 20:01 20:01 20:01 WBC (4.8-10.8) X10*3/uL RBC (4.60-5.80) X10*6/uL Hgb (14.0-18.0) g/dl Hct (42.0-52.0) % MCV (80.0-98.0) fL MCH (27.0-33.0) pg MCHC (31.0-36.0) g/dl RDW (11.0-16.0) % Plt Count (160-400) X10*3/uL MPV (9.4-12.4) fL Immature Gran % (Auto) (0.0-0.4) % Neut % (Auto) (45-73) % Lymph % (Auto) (20-40) % [place] % (Auto) (2-11) % Eos % (Auto) (0-4) % Baso % (Auto) (0-2) % Lymph # (Auto) (1.2-4.9) X10*3/uL [place] # (Auto) (0.1-1.2) X10*3/uL Eos # (Auto) (0.0-0.4) X10*3/uL Baso # (Auto) (0.0-0.2) X10*3/uL Abs Immat Gran (auto) (0.00-0.03) X10*3/uL Absolute Neuts (auto) (2.0-8.3) x10*3/uL Absolute Nucleated RBC (0.0-0.012) X10*3/uL Nucleated RBC % (auto) (0.0-0.2) /100WBC VBG pH (7.32-7.43) VBG pCO2 mmHg VBG pO2 mmHg VBG HCO3 (22-26) mmol/L VBG O2 Saturation % VBG Base Excess mmol/L Sodium (135-145) mmol/L Potassium (3.3-5.1) mmol/L Chloride (96-108) mmol/L Carbon Dioxide (22-29) mmol/L Anion Gap (12-20) BUN (9-16) mg/dL Creatinine (0.5-1.4) mg/dL Estim Creat Clear Calc Estimated GFR Random Glucose (60-115) mg/dL Calcium (8.4-10.2) mg/dL Magnesium (1.6-2.6) mg/dL Iron 36 L (45-160) mcg/dL TIBC 206 L (228-428) mcg/dL % Saturation 17 (15-50) % Unsat Iron Binding 170 ug/dL Total Bilirubin (0.0-1.0) mg/dL Direct Bilirubin (0.0-0.5) mg/dL AST (5-37) U/L ALT (0-40) U/L Alkaline Phosphatase (39-117) U/L Total Creatine Kinase 134 (38-174) U/L B-Natriuretic Peptide 296 H (<100) pg/mL Total Protein (6.5-8.0) g/dL Albumin (3.5-5.0) g/dL Stool Occult Blood (NEGATIVE) COVID-19 (JACQUELYN) (Negative) COVID-19 Clin Com Blood Type Antibody Screen Crossmatch 06/02/22 06/02/22 06/02/22 Range/Units 20:02 20:13 20:19 WBC (4.8-10.8) X10*3/uL RBC (4.60-5.80) X10*6/uL Hgb (14.0-18.0) g/dl Hct (42.0-52.0) % MCV (80.0-98.0) fL MCH (27.0-33.0) pg MCHC (31.0-36.0) g/dl RDW (11.0-16.0) % Plt Count (160-400) X10*3/uL MPV (9.4-12.4) fL Immature Gran % (Auto) (0.0-0.4) % Neut % (Auto) (45-73) % Lymph % (Auto) (20-40) % [place] % (Auto) (2-11) % Eos % (Auto) (0-4) % Baso % (Auto) (0-2) % Lymph # (Auto) (1.2-4.9) X10*3/uL [place] # (Auto) (0.1-1.2) X10*3/uL Eos # (Auto) (0.0-0.4) X10*3/uL Baso # (Auto) (0.0-0.2) X10*3/uL Abs Immat Gran (auto) (0.00-0.03) X10*3/uL Absolute Neuts (auto) (2.0-8.3) x10*3/uL Absolute Nucleated RBC (0.0-0.012) X10*3/uL Nucleated RBC % (auto) (0.0-0.2) /100WBC VBG pH 7.39 (7.32-7.43) VBG pCO2 31 mmHg VBG pO2 143 mmHg VBG HCO3 19 L (22-26) mmol/L VBG O2 Saturation 99.0 % VBG Base Excess -5.0 mmol/L Sodium (135-145) mmol/L Potassium (3.3-5.1) mmol/L Chloride (96-108) mmol/L Carbon Dioxide (22-29) mmol/L Anion Gap (12-20) BUN (9-16) mg/dL Creatinine (0.5-1.4) mg/dL Estim Creat Clear Calc Estimated GFR Random Glucose (60-115) mg/dL Calcium (8.4-10.2) mg/dL Magnesium (1.6-2.6) mg/dL Iron (45-160) mcg/dL TIBC (228-428) mcg/dL % Saturation (15-50) % Unsat Iron Binding ug/dL Total Bilirubin (0.0-1.0) mg/dL Direct Bilirubin (0.0-0.5) mg/dL AST (5-37) U/L ALT (0-40) U/L Alkaline Phosphatase (39-117) U/L Total Creatine Kinase (38-174) U/L B-Natriuretic Peptide (<100) pg/mL Total Protein (6.5-8.0) g/dL Albumin (3.5-5.0) g/dL Stool Occult Blood POSITIVE (NEGATIVE) COVID-19 (JACQUELYN) (Negative) COVID-19 Clin Com Blood Type O Positive Antibody Screen NEGATIVE Crossmatch See Detail Critical Care Time Critical Care Time Critical Care Time: Yes Total Critical Care Time: 39 Attestation: I have personally provided critical care time exclusive of time spent on separat umer billable procedures. Time includes review of lab data, radiology results, discussion with consultants, and monitoring for potential decompensation. Intervention performed as documented. Discharge Plan Discharge Clinical Impression: Acute blood loss anemia, ZOILA (acute kidney injury) Patient Disposition: Admitted As Inpatient
[2022-06-02 20:19] LABS: MANUAL DIFF FLAG NO
[2022-06-02 20:22] LABS: Basophils Percent Auto 0.7 % (0-2); Hematocrit 22.3 % (42.0-52.0); Hemoglobin 7.7 g/dl (14.0-18.0); Imm Gran Abs Auto 0.02 X10*3/uL (0.00-0.03); Imm Gran Pct Auto 0.7 % (0.0-0.4); Lymphocytes Absolute Auto 1.4 X10*3/uL (1.2-4.9); Lymphocytes Percent Auto 46.3 % (20-40); Mean Corpuscular HGB Conc 34.5 g/dl (31.0-36.0); Mean Corpuscular Hemoglobin 32.5 pg (27.0-33.0); Mean Corpuscular Volume 94.1 fL (80.0-98.0); Mean Platelet Volume 9.5 fL (9.4-12.4); Monocytes Absolute Auto 0.2 X10*3/uL (0.1-1.2); Monocytes Percent Auto 6.7 % (2-11); Neutrophils Absolute Auto 1.3 x10*3/uL (2.0-8.3); Neutrophils Percent Auto 44.6 % (45-73); Platelet Count 192 X10*3/uL (160-400); Red Blood Count 2.37 X10*6/uL (4.60-5.80); Red Cell Distribution Width 13.5 % (11.0-16.0)
[2022-06-02 20:23] LABS: Venous Blood Gas Refer to POC result
[2022-06-02 20:23] LABS: VBG HCO3 19 mmol/L (22-26); VBG pCO2 31 mmHg; VBG pH 7.39 (7.32-7.43); VBG pO2 143 mmHg
[2022-06-02 20:38] LABS: OBS Int Ctl Valid YES; OBS1 POSITIVE (NEGATIVE)
[2022-06-02 20:41] LABS: COVID-19 Test Negative (Negative)
[2022-06-02 20:42] LABS: Alanine Aminotransferase 16 U/L (0-40); Albumin Level 2.8 g/dL (3.5-5.0); Alkaline Phosphatase 104 U/L (39-117); Anion Gap 16 (12-20); Aspartate Amino Transferase 31 U/L (5-37); Bilirubin Direct 0.3 mg/dL (0.0-0.5); Bilirubin Total 0.6 mg/dL (0.0-1.0); Blood Urea Nitrogen 60 mg/dL (9-16); Calcium 8.1 mg/dL (8.4-10.2); Carbon Dioxide 19 mmol/L (22-29); Chloride 109 mmol/L (96-108); Creatinine Clr Calc Pharmacy 24.8; Estimated Glomerular Filt Rate 23; Glucose Random 201 mg/dL (60-115); Iron 36 mcg/dL (45-160); Magnesium 2.2 mg/dL (1.6-2.6); Percent Iron Saturation 17 % (15-50); Potassium 4.5 mmol/L (3.3-5.1); Sodium 139 mmol/L (135-145); Total Iron Binding Capacity 206 mcg/dL (228-428); Total Protein 7.1 g/dL (6.5-8.0); Unsaturated Iron Binding 170 ug/dL
[2022-06-02 20:49] LABS: B Type Natriuretic Peptide 296 pg/mL (<100)
--- NOTE | 2022-06-02 21:13 | PHA.MEDREC ---
Pharmacy Consult ? Medication Reconciliation Pharmacy has completed the medication reconciliation. Spoke with patients who listed off all medications. Patient is no longer taking Aspirin per biostatistics professor. Furosemide prescribed today and patient has not started this medication yet per .
--- NOTE | 2022-06-02 21:32 | PM.IMHP ---
History of Present Illness Date of Service: 06/02/22 Attending physician on admission: Ahsan Elliott Chief Complaint: acute CHF 71 year old pt history significant for non-alcoholic cirrhosis s/p liver transplant 5 years ago on tacrolimas, noninsulin dependent type 2 diabetes, hld, osteomyelitis spine with recent admission 05/22-05/25 for osteomyelitis of the spine with bacteremia with PICC in place for IV daptomycin with echo at that time showing severe aortic stenosis and new atrial fibrillation started on eliquis. During hospitaliation thought to have history of GI bleed with chronic anemia. EGD did not show any active bleed, just chronic ulcers. He was seen this morning by Dr. Palacios for hospital follow up complaining of tello and orthopnea ongoing since discharge and BLE ongoing x 1day. Labs ordered by card this am showed ZOILA with creat 2.89 (baseline 1.38 at discharge) and BUN 59 (baseline 21 on discharge). In ED, minimal improvement in creat and BUN to 2.72 and 60. BNP 296. H/H 7.7/22.3% (drop from 8.4/24.4% this morning). Iron 36, TIBC 206. Heme positive stool. EKG not available. Echo from 05/22 with hyperdynamic left ventricular systolic function with EF >70%. Widely variable gradients in valve area d/t afib with possible severe . No vegetation seen. CXR today with blunted posterior right costophrenic angle suspicious for trace right pleural effusion. Vitals stable. Patient complaining of midline low back pain and right flank pain consistent with pain r/t osteomyelitis. No dysuria, hematuria, increased frequency of urination. No n/v, abdominal pain, melena, hematochezia. No palpitations or cp. Review of Systems Review of Systems: General: No fevers, malaise, unintentional weight loss Cardiovascular: +leg edema. No chest pain, palpitations Respiratory: +sob, +orthopnea. No wheezing, cough GI: No abdominal pain, nausea, vomiting, diarrhea, constipation, melena, hematochezia : No dysuria, hematuria, increased urinary frequency or urgency MSK: +low back pain, +right flank pain Neuro: No headaches, weakness, paresthesias Skin: No rashes or lesions [facility] Medical History (Updated 06/02/22 @ 21:52 by LIBBY Calvin) Acute diastolic (congestive) heart failure Aortic stenosis Diabetes Duodenitis Fatty liver GERD (gastroesophageal reflux disease) Gram-positive bacteremia Hypercholesteremia Hypertension Non-rheumatic aortic stenosis Osteomyelitis PAF (paroxysmal atrial fibrillation) Family History Mother Myocardial infarct Surgical History (Updated 06/02/22 @ 09:18 by Gabino Palacios MD) History of back surgery Hx of colonoscopy Hx of lymph node excision Liver transplant recipient Social History Household Members: Spouse Housing: House Do you presently have visiting nurse or other home services: No Patient Tobacco Use Status: Never used Tobacco Advance Directives: Yes Advance Directives on File: Yes Advance Directives Date on File: 05/19/22 service: No Current occupational status: retired Meds Allergies Allergy/AdvReac Type Severity Reaction Status Date / Time ibuprofen [IBUPROFEN] Allergy Severe SWELLING Verified 06/02/22 14:39 peanut [PEANUTS] Allergy Unknown SWELLING Verified 06/02/22 14:39 Active Medications: Current Medications Acetaminophen (Acetaminophen Supp 650 Mg Supp.Rect) 650 mg KS Q6H PRN PRN Reason: Pain, Mild (Pain Scale 1-3) Amlodipine Besylate (Amlodipine Besylate 10 Mg Tablet) mg PO DAILY PATRICIA; Protocol Ascorbic Acid (Ascorbic Acid 500 Mg Tablet) 500 mg PO DAILY PATRICIA Atorvastatin Calcium (Atorvastatin Calcium 20 Mg Tablet) mg PO BEDTIME PATRICIA Clonidine HCl (Clonidine Hcl 0.1 Mg Tablet) mg PO BID PATRICIA; Protocol Daptomycin (Daptomycin 500 Mg/10 Ml Vial) 500 mg IV Q24H PATRICIA Docusate Sodium (Docusate Sodium 100 Mg Capsule) 100 mg PO BID PATRICIA Furosemide (Furosemide 40 Mg/4 Ml Vial) 40 mg IVPUSH Q12H PATRICIA; Protocol Lisinopril (Lisinopril 2.5 Mg Tablet) mg PO DAILY PATRICIA; Protocol Multivitamins/Vitamin C (Multivitamin Tablet) 1 tab PO DAILY PATRICIA Ondansetron HCl (Ondansetron Hcl 4 Mg/2 Ml Vial) 4 mg IVPUSH Q8H PRN PRN Reason: Nausea and Vomiting Pantoprazole Sodium (Pantoprazole Sodium 40 Mg/10 Ml Vial) 40 mg IVPUSH BID@0630,1100 [facility] Pharmacy Consult (Consult Rx Perform Med Rec) 1 each MISCELLANE ONCE PRN PRN Reason: Consult order Senna (Sennosides 8.6 Mg Tablet) 17.2 mg PO BEDTIME [facility] Sodium Chloride (0.9 % Sodium Chloride Flush 3 Ml Syringe) 3 ml IVFLUSH QSHIFT [facility] Tacrolimus (Tacrolimus 1 Mg Capsule) mg PO BID [facility] Vitamin D (Cholecalciferol (Vitamin D3) 25 Mcg Tablet) 25 mcg PO DAILY [facility] Home Medications Medication Instructions Recorded Confirmed Last Taken Type ascorbic acid (vitamin C) 500 mg 500 mg PO DAILY 05/19/22 06/02/22 06/02/22 History tablet (Vitamin C) cholecalciferol (vitamin D3) 25 25 mcg PO DAILY 05/19/22 06/02/22 06/02/22 History mcg (1,000 unit) tablet (Vitamin D3) docusate sodium 100 mg capsule 100 mg PO BID 05/19/22 06/02/22 06/02/22 History (Colace) multivitamin 1 tab PO DAILY 05/19/22 06/02/22 06/02/22 History sennosides 8.6 mg tablet (senna) 17.2 mg PO BEDTIME 05/19/22 06/02/22 06/01/22 History amlodipine 10 mg tablet 10 mg PO DAILY 06/02/22 06/02/22 06/02/22 History atorvastatin 20 mg tablet 20 mg PO BEDTIME 06/02/22 06/02/22 06/01/22 History clonidine HCl 0.1 mg tablet 0.1 mg PO BID 06/02/22 06/02/22 06/02/22 History lisinopril 2.5 mg tablet 2.5 mg PO DAILY 06/02/22 06/02/22 06/02/22 History repaglinide 0.5 mg tablet 0.5 mg PO TIDAC 06/02/22 06/02/22 06/02/22 History sitagliptin 50 mg tablet (Januvia) 50 mg PO DAILY 06/02/22 06/02/22 06/02/22 History tacrolimus 1 mg capsule, 1 mg PO BID 06/02/22 06/02/22 06/02/22 History immediate-release Physical Exam Vital Signs and Narrative: Vital Signs: Last Vital Signs Temp 97.7 F 06/02/22 19:11 Pulse 83 06/02/22 19:11 Resp 20 06/02/22 14:39 BP 150/65 H 06/02/22 19:11 Pulse Ox 99 06/02/22 19:11 O2 Del Method 06/02/22 19:11 BMI result Body Mass Index 40.8 Constitutional - Awake and Alert, No apparent distress Eyes - PERRLA, EOMI Cardiovascular - IV / systolic ejection murmur. S1S2, RRR, 4+ pitting edema BLE Respiratory - Normal lung expansion, Normal respiratory effort, No respiratory distress, CTA bilaterally Gastrointestinal - NT / ND; +BS; No rebound or guarding Extremities - no calf tenderness bilaterally Musculoskeletal - Normal inspection, normal ROM Skin - Warm/Dry Neurological - Alert & oriented x3, No focal deficit Psychological - Appropriate affect Results Labs CBC and Chem 7: 06/02/22 20:01 06/02/22 20:01 Labs: Laboratory Results - last 24 hr 06/02/22 06/02/22 06/02/22 20:01 20:01 20:01 MCV 94.1 MCH 32.5 MCHC 34.5 RDW 13.5 Plt Count 192 MPV 9.5 Immature Gran % (Auto) 0.7 H Neut % (Auto) 44.6 L Lymph % (Auto) 46.3 H Edmonson % (Auto) 6.7 Eos % (Auto) 1.0 Baso % (Auto) 0.7 Lymph # (Auto) 1.4 Edmonson # (Auto) 0.2 Eos # (Auto) 0.0 Baso # (Auto) 0.0 Abs Immat Gran (auto) 0.02 Absolute Neuts (auto) 1.3 L Absolute Nucleated RBC 0.000 Nucleated RBC % (auto) 0.0 VBG pH VBG pCO2 VBG pO2 VBG HCO3 VBG O2 Saturation VBG Base Excess Anion Gap 16 Estim Creat Clear Calc 24.8 Estimated GFR 23 Random Glucose 201 H Calcium 8.1 L Magnesium 2.2 Iron TIBC % Saturation Unsat Iron Binding Total Bilirubin 0.6 Direct Bilirubin 0.3 AST 31 D ALT 16 Alkaline Phosphatase 104 D Total Creatine Kinase B-Natriuretic Peptide Total Protein 7.1 D Albumin 2.8 L Stool Occult Blood COVID-19 (JACQUELYN) Negative COVID-19 Clin Com See Note Blood Type Antibody Screen Crossmatch 06/02/22 06/02/22 06/02/22 20:01 20:01 20:01 MCV MCH MCHC RDW Plt Count MPV Immature Gran % (Auto) Neut % (Auto) Lymph % (Auto) Edmonson % (Auto) Eos % (Auto) Baso % (Auto) Lymph # (Auto) Edmonson # (Auto) Eos # (Auto) Baso # (Auto) Abs Immat Gran (auto) Absolute Neuts (auto) Absolute Nucleated RBC Nucleated RBC % (auto) VBG pH VBG pCO2 VBG pO2 VBG HCO3 VBG O2 Saturation VBG Base Excess Anion Gap Estim Creat Clear Calc Estimated GFR Random Glucose Calcium Magnesium Iron 36 L TIBC 206 L % Saturation 17 Unsat Iron Binding 170 Total Bilirubin Direct Bilirubin AST ALT Alkaline Phosphatase Total Creatine Kinase 134 B-Natriuretic Peptide 296 H Total Protein Albumin Stool Occult Blood COVID-19 (JACQUELYN) COVID-19 [facility] Blood Type Antibody Screen Crossmatch 06/02/22 06/02/22 06/02/22 20:02 20:13 20:19 MCV MCH MCHC RDW Plt Count MPV Immature Gran % (Auto) Neut % (Auto) Lymph % (Auto) Edmonson % (Auto) Eos % (Auto) Baso % (Auto) Lymph # (Auto) Edmonson # (Auto) Eos # (Auto) Baso # (Auto) Abs Immat Gran (auto) Absolute Neuts (auto) Absolute Nucleated RBC Nucleated RBC % (auto) VBG pH 7.39 VBG pCO2 31 VBG pO2 143 VBG HCO3 19 L VBG O2 Saturation 99.0 VBG Base Excess -5.0 Anion Gap Estim Creat Clear Calc Estimated GFR Random Glucose Calcium Magnesium Iron TIBC % Saturation Unsat Iron Binding Total Bilirubin Direct Bilirubin AST ALT Alkaline Phosphatase Total Creatine Kinase B-Natriuretic Peptide Total Protein Albumin Stool Occult Blood POSITIVE COVID-19 (JACQUELYN) COVID-19 [facility] Com Blood Type O Positive Antibody Screen NEGATIVE Crossmatch See Detail Imaging Radiologist's Impressions: Impressions Chest X-Ray 06/02/22 20:24 IMPRESSION: 1. Blunted posterior right costophrenic sulcus suspicious for trace right pleural effusion. 2. No airspace consolidation or evidence of pulmonary edema. Assessment and Plan (1) Acute diastolic (congestive) heart failure: Status: Acute (2) Acute blood loss anemia: Status: Acute (3) ZOILA (acute kidney injury): Status: Acute Plan 71 year old pt history significant for non-alcoholic cirrhosis s/p liver transplant 5 years ago on tacrolimas, noninsulin dependent type 2 diabetes, hld, osteomyelitis spine with recent admission 05/22-05/25 for osteomyelitis of the spine with bacteremia with PICC in place for IV daptomycin with echo at that time showing severe aortic stenosis and new atrial fibrillation started on eliquis being admitted for acute CHF exacerbation, ZOILA, and acute blood loss anemia. 1-Acute diastolic heart failure- pt seen by Dr. David this am for tello, orthopnea, and BLE edema ongoing this discharge last week -Last echo 05/22 with hyperdynamic LV systolic function with EF >70%. Diastolic fx indeterminate at that time. Widely variable valvular gradients d/t new afib with possible severe AV -IV lasix 40mg BID -Echo per cardiology -Cardiology consult placed -Cardiac diet -Salas catheter with strict I&O -Daily weights 2-ZOILA- likely cardiorenal, expect improvement following IV diuresis -creat 2.89 (baseline 1.38 at discharge) and BUN 59 (baseline 21 on discharge) -Follow BMP 3-Acute blood loss anemia -H/H 7.7/22.3% (drop from 8.4/24.4% this morning) with heme positive stool in ED -Recent EGD 05/22 showed chronic ulcers without active bleeding. Started on omeprazole. ASA stopped -Recently started on eliquis for new onset afib. Hold eliquis -EKG and troponin ordered to evaluate for ACS. No chest pain -Will likely need transfusion, but will diurese first to prevent further CHF decompensation as he is hemodynamically stable at this time -IV pantoprazole BID -GI consulted -Follow CBC 4-Paroxysmal atrial fibrillation- diagnosed on echo 05/22 last admission. Rate controlled -Hold eliquis d/t probable GI bleed -Not on rate control -Following with Dr. Christiansen. Plan for 7 day holter outpt -Cardiology consulted 5-Noninsulin dependent type 2 diabetes -POC glucose -Diabetic diet -Hold PO home meds -Humalog SSI 6-H/o cirrhosis s/p liver transplant -Liver enzymes stable -Continue tacrolimus 7-Acute osteomyelitis- diagnosed recent admission, seen and evaluated by ID -Continue daptomycin via PICC line -Oxycodone and dilaudid per pain scale 8-HTN- reasonably controlled -Continue home meds, lasix changed to iv DVT prophylaxis- mechanical. Hold eliquis d/t probable gi bleed Full code Pt requires inpt stay at least 2 midnights d/t acute diastolic HF exacerbation with ZOILA requiring IV diuresis as well as probable GI bleed needing transfusion and ongoing monitoring to prevent further cardiac decompensation and reduce risk of ACS. Quality Stroke Does the patient have a stroke diagnosis?: No VTE Prior VTE?: No VTE Risk Level:: Medical - moderate - high VTE Device Contraindication: N/A - Device Ordered VTE Drug Contraindication: Treatment Not Tolerated
[2022-06-02] MEDS: DAPTOmycin 500 MG in 0.9 % Sodium Chloride 50 ML 120 MG IV (21:57)
--- NOTE | 2022-06-02 22:03 | PC.NURSE ---
Assumed care of pt. at 1900. Pt. is A&O X3, calm and cooperative. was at bedside. Pt. is resting comfortably in bed. Legs are noted at bilaterally 4+ pitting edema. Pt. c/o of some sob, however o2 sats are stable and WNL. Type and screen drawn for possible blood replacement therapy.
[2022-06-02] MEDS: cloNIDine HCL 0.1 MG TABLET PO (23:25)
[2022-06-02] MEDS: Atorvastatin Calcium 20 MG TABLET PO (23:25)
[2022-06-02] MEDS: Docusate Sodium 100 MG CAPSULE PO (23:26)
[2022-06-02] MEDS: Tacrolimus 1 MG CAPSULE PO (23:26)
[2022-06-02] MEDS: Furosemide 40 MG/4 ML VIAL IVPUSH (23:26)
[2022-06-02] MEDS: Sennosides 8.6 MG TABLET 17.2 MG PO (23:26)
[2022-06-02] MEDS: Pantoprazole Sodium 40 MG/10 ML VIAL IVPUSH (23:27)
[2022-06-02 23:57] LABS: Troponin-I High Sensitivity 10.5 ng/L (<3.5-35.0); Troponin-I High Sensitivity 9.3 ng/L (<3.5-35.0)
[2022-06-03] VITALS (9 sets, daily range): BP systolic 122–145; BP diastolic 52–75; PULSE 64–78; RESP 13–20; TEMP 36.5–37; O2SAT 97–99; BMI 42.3
--- NOTE | 2022-06-03 | ECG_ITS ---
Test Reason : General Medicine Blood Pressure : / mmHG Vent. Rate : 071 BPM Atrial Rate : 071 BPM P-R Int : 206 ms QRS Dur : 072 ms QT Int : 400 ms P-R-T Axes : -06 068 036 degrees QTc Int : 434 ms Normal sinus rhythm Nonspecific T wave abnormality Abnormal ECG When compared with ECG of 23-MAY-2022 10:35, Questionable change in QRS axis Referred By: Flaco Mclean Electronically Signed By:KALINA STEPHEN
[2022-06-03 00:36] LABS: Appearance Urine Clear; Color Urine Yellow; Glucose Urine UA Negative (Negative); Leukocyte Esterase Urine Trace (Negative); Nitrite Urine Negative (Negative); PH 5.5 (5.0-9.0); Specific Gravity - Urine 1.015 (1.005-1.025); Urine Blood Moderate (2+) (Negative); Urine Ketones Negative (Negative); Urine Protein Trace mg/dL (Neg-Trace)
[2022-06-03 00:52] LABS: Bacteria Urine None Seen (None Seen); Hyaline Casts Urine 0-2 /LPF (0-2); Squamous Epithelial Cell Urine 0-2 /HPF (0-2); WBC Urine 0-5 /HPF (0-5)
[2022-06-03 00:54] LABS: Creatinine Urine 139.37 mg/dL
[2022-06-03 01:32] LABS: Osmolality Urine 456 mosm/kg (373-1093)
[2022-06-03] MEDS: Pantoprazole Sodium 40 MG/10 ML VIAL IVPUSH ×2 (06:51→17:13)
--- NOTE | 2022-06-03 07:00 | CA_ITS ---
Transthoracic Echocardiogram Patient (Last, First, Middle): Boaz Wells E Gender: Male Date of : 1950 Age: 71 Procedure Date: 06/03/2022 Procedure Type: Transthoracic [place] [facility] [place]: 154.94 cm Weight: 97.98 kg BSA: 1.95 m2 Heart Rate: 70 bpm BP: 152 / 71 mmHg Raw Material Handler: Referring MD: Gabino Palacios MD Symptoms: Aortic stenosis, heart failure Study Quality: Adequate ECG Rhythm: Sinus Conclusions: - Normal left ventricular cavity size. There is mildly increased left ventricular wall thickness. The left ventricular systolic function is hyperdynamic. The visually estimated ejection fraction is >70%. - E/E prime ratio is >15, consistent with elevated filling pressures. - There is severe aortic valve stenosis. The peak aortic velocity is 5.14 m/s. The mean gradient is 67 mmHg. The aortic valve area is 0.81 cm2. There is no aortic valve regurgitation. Findings Left Ventricle Normal left ventricular cavity size. There is mildly increased left ventricular wall thickness. The left ventricular systolic function is hyperdynamic. The visually estimated ejection fraction is >70%. There is no evidence of regional wall motion abnormalities. Abnormal diastolic function is noted. Spectral Doppler is indicative of an impaired relaxation filling pattern. E/E prime ratio is >15, consistent with elevated filling pressures. Right Ventricle Normal right ventricular cavity size and systolic function. Atria The left atrium is mildly dilated. Aortic Valve There is severe calcification of the aortic valve. There is moderate thickening of the aortic valve. There is severe aortic valve stenosis. The peak aortic velocity is 5.14 m/s. The mean gradient is 67 mmHg. The aortic valve area is 0.81 cm2. There is no aortic valve regurgitation. Mitral Valve There is mild mitral annular calcification. There is no mitral valve regurgitation. There is no mitral valve stenosis. Pulmonic Valve The pulmonic valve is likely normal. Tricuspid Valve Likely normal tricuspid valve structure and function. There is mild tricuspid valve regurgitation. Normal right atrial pressure. There is no evidence of pulmonary hypertension. Great Vessels All visible segments of the aorta are normal in size. The pulmonary artery was not well visualized. Venous The inferior vena cava is normal in size and collapses greater than 50% with inspiration. Pericardium/Pleural There is no evidence of pericardial effusion. Prior Study Comparison Changes noted compared to prior study dated: 05/22/2022. Elevated filling pressures present. Measurements 2D Linear Measurements IVSd: 1.29 0.6-0.9/0.6-1.0 cm LVIDd: 4.95 3.9-5.3/4.2-5.9 cm LVIDd Index: 2.54 2.4-3.2/2.2-3.1 cm/m2 LVIDs: 2.78 2.0-3.6 cm LVPWd: 1.24 0.7-1.1 cm LA Diam: 3.70 2.7-3.8/3.0-4.0 cm LAIDs Index: 1.90 1.5-2.3 cm/m2 LV Mass: 309.11 67-162/88-224 g LV Mass Index: 158.52 43-95/49-115 g/m2 LVOT Diam: 2.00 3.0+(-)1.3 cm Mitral Valve MV Pk E: 1.06 MV PK A: 1.18 MV Decel Time: 301.00 E/A: 0.90 E'Lateral: 5.87 E'Medial: 4.90 E/E' Med: 21.60 E/E' Lat: 18.10 PHT: 88.00 MVA PHT: 2.50 Decel [place]: 3.54 Aortic Valve AoV Pk [place]: 5.14 AoV Mn [place]: 3.90 AoV VTI: 1.30 AoV Pk Grad: 106.00 Aov Mn Grad: 67.00 THOMAS Cont.VTI: 0.81 LVOT LVOT Pk [place]: 1.23 LVOT Mn [place]: 0.85 LVOT VTI: 0.34 LVOT Pk Grad: 6.00 LVOT Mn Grad: 4.00 LVOT Diam: 2.00 LVOT Area: 3.14 Diastolic Function MV Pk E: 1.06 MV Pk A: 1.18 E/A: 0.90 E'Medial: 4.90 E/E' Med: 21.60 E' Laterial: 5.87 E/E' Lat: 18.10 Right Ventricle TAPSE (mm): 28.10 Tricuspid Valve TR Pk [place]: 2.70 TR Pk Grad: 29.00 RVSP: 29.00 Great Vessels Aorta Sinus of Valsalva: 2.70 2.0-3.5 cm Ao Asc: 2.90 2.1-3.4 cm Pulmonary Valve PV Pk [place]: 1.35 Peak PV Grad: 7.00 Updated in Other Vendor System with Status of Final Ismael Colon MD electronically signed on 06/03/2022 4:54:55 PM with status of Final
[2022-06-03 07:36] LABS: Glucose, Whole Blood 179 mg/dL (60-115)
--- NOTE | 2022-06-03 07:58 | PM.CNCAR ---
History of Present Illness History of Present Illness Date of Service: 06/03/22 Chief complaint: CHF, anemia [facility] Past Medical History Medical History (Updated 06/02/22 @ 21:52 by LIBBY Calvin) Acute diastolic (congestive) heart failure Aortic stenosis Diabetes Duodenitis Fatty liver GERD (gastroesophageal reflux disease) Gram-positive bacteremia Hypercholesteremia Hypertension Non-rheumatic aortic stenosis Osteomyelitis PAF (paroxysmal atrial fibrillation) Family History Family History Mother Myocardial infarct Surgical History Surgical History (Updated 06/02/22 @ 09:18 by Gabino Palacios MD) History of back surgery Hx of colonoscopy Hx of lymph node excision Liver transplant recipient Social History Social History Household Members: Spouse Housing: House Do you presently have visiting nurse or other home services: No Patient Tobacco Use Status: Never used Tobacco Advance Directives: Yes Advance Directives on File: Yes Advance Directives Date on File: 05/19/22 service: No Current occupational status: retired Meds Allergies Allergy/AdvReac Type Severity Reaction Status Date / Time ibuprofen [IBUPROFEN] Allergy Severe SWELLING Verified 06/02/22 14:39 peanut [PEANUTS] Allergy Unknown SWELLING Verified 06/02/22 14:39 Active Medications: Current Medications Acetaminophen (Acetaminophen Supp 650 Mg Supp.Rect) 650 mg RI Q6H PRN PRN Reason: Pain, Mild (Pain Scale 1-3) Amlodipine Besylate (Amlodipine Besylate 10 Mg Tablet) 10 mg PO DAILY PATR[facility]; Protocol Ascorbic Acid (Ascorbic Acid 500 Mg Tablet) 500 mg PO DAILY [facility] Atorvastatin Calcium (Atorvastatin Calcium 20 Mg Tablet) 20 mg PO BEDTIME PATRICIA Last Admin: 06/02/22 23:25 Dose: 20 mg Clonidine HCl (Clonidine Hcl 0.1 Mg Tablet) 0.1 mg PO BID PATRICIA; Protocol Last Admin: 06/02/22 23:25 Dose: 0.1 mg Daptomycin (Daptomycin 500 Mg/10 Ml Vial) 500 mg IV Q24H PATR[facility] Docusate Sodium (Docusate Sodium 100 Mg Capsule) 100 mg PO BID PATRICIA Last Admin: 06/02/22 23:26 Dose: 100 mg Furosemide (Furosemide 40 Mg/4 Ml Vial) 40 mg IVPUSH Q12H PATRICIA; Protocol Last Admin: 06/02/22 23:26 Dose: 40 mg Hydromorphone HCl (Hydromorphone Hcl 0.5 Mg/0.5 Ml Syringe) 0.5 mg IVPUSH Q4H PRN; Protocol PRN Reason: Pain, Severe (Pain Scale 7-10) Insulin Human Lispro (Insulin Lispro 100 Unit/Ml 3 Ml Vial) 0 unit SUBCUT QIDACHS [facility]; Protocol Lisinopril (Lisinopril 2.5 Mg Tablet) 2.5 mg PO DAILY [facility]; Protocol Multivitamins/Vitamin C (Multivitamin Tablet) 1 tab PO DAILY [facility] Ondansetron HCl (Ondansetron Hcl 4 Mg/2 Ml Vial) 4 mg IVPUSH Q8H PRN PRN Reason: Nausea and Vomiting Oxycodone HCl (Oxycodone Hcl Immed Release 5 Mg Tablet) 5 mg PO Q6H PRN PRN Reason: Pain, Moderate (Pain Scale 4-6 Pantoprazole Sodium (Pantoprazole Sodium 40 Mg/10 Ml Vial) 40 mg IVPUSH BID@0630,1630 [facility] Last Admin: 06/03/22 06:51 Dose: 40 mg Pharmacy Consult (Consult Rx Perform Med Rec) 1 each MISCELLANE ONCE PRN PRN Reason: Consult order Senna (Sennosides 8.6 Mg Tablet) 17.2 mg PO BEDTIME [facility] Last Admin: 06/02/22 23:26 Dose: 17.2 mg Sodium Chloride (0.9 % Sodium Chloride Flush 3 Ml Syringe) 3 ml IVFLUSH QSHIFT [facility] Last Admin: 06/03/22 01:06 Dose: Not Given Tacrolimus (Tacrolimus 1 Mg Capsule) 1 mg PO BID [facility] Last Admin: 06/02/22 23:26 Dose: 1 mg Vitamin D (Cholecalciferol (Vitamin D3) 25 Mcg Tablet) 25 mcg PO DAILY [facility] Home Medications Medication Instructions Recorded Confirmed Last Taken Type ascorbic acid (vitamin C) 500 mg 500 mg PO DAILY 05/19/22 06/02/22 06/02/22 History tablet (Vitamin C) cholecalciferol (vitamin D3) 25 25 mcg PO DAILY 05/19/22 06/02/22 06/02/22 History mcg (1,000 unit) tablet (Vitamin D3) docusate sodium 100 mg capsule 100 mg PO BID 05/19/22 06/02/22 06/02/22 History (Colace) multivitamin 1 tab PO DAILY 05/19/22 06/02/22 06/02/22 History sennosides 8.6 mg tablet (senna) 17.2 mg PO BEDTIME 05/19/22 06/02/22 06/01/22 History amlodipine 10 mg tablet 10 mg PO DAILY 06/02/22 06/02/22 06/02/22 History atorvastatin 20 mg tablet 20 mg PO BEDTIME 06/02/22 06/02/22 06/01/22 History clonidine HCl 0.1 mg tablet 0.1 mg PO BID 06/02/22 06/02/22 06/02/22 History lisinopril 2.5 mg tablet 2.5 mg PO DAILY 06/02/22 06/02/22 06/02/22 History repaglinide 0.5 mg tablet 0.5 mg PO TIDAC 06/02/22 06/02/22 06/02/22 History sitagliptin 50 mg tablet (Januvia) 50 mg PO DAILY 06/02/22 06/02/22 06/02/22 History tacrolimus 1 mg capsule, 1 mg PO BID 06/02/22 06/02/22 06/02/22 History immediate-release Physical Exam Vital Signs: Vital Signs: Last Vital Signs Temp 97.8 F 06/03/22 00:22 Pulse 72 06/03/22 04:08 Resp 18 06/03/22 04:08 BP 128/63 06/03/22 04:08 Pulse Ox 98 06/03/22 04:08 O2 Del Method 06/03/22 04:08 BMI result Body Mass Index 40.8 Objective Labs and Meds Result diagrams: 06/02/22 20:01 06/02/22 20:01 Lab results: Laboratory Results - last 24 hr 06/02/22 06/02/22 06/02/22 20:01 20:01 20:01 WBC 3.0 L RBC 2.37 L Hgb 7.7 L Hct 22.3 L MCV 94.1 MCH 32.5 MCHC 34.5 RDW 13.5 Plt Count 192 MPV 9.5 Immature Gran % (Auto) 0.7 H Neut % (Auto) 44.6 L Lymph % (Auto) 46.3 H [place] % (Auto) 6.7 Eos % (Auto) 1.0 Baso % (Auto) 0.7 Lymph # (Auto) 1.4 [place] # (Auto) 0.2 Eos # (Auto) 0.0 Baso # (Auto) 0.0 Abs Immat Gran (auto) 0.02 Absolute Neuts (auto) 1.3 L Absolute Nucleated RBC 0.000 Nucleated RBC % (auto) 0.0 VBG pH VBG pCO2 VBG pO2 VBG HCO3 VBG O2 Saturation VBG Base Excess Sodium 139 Potassium 4.5 Chloride 109 H Carbon Dioxide 19 L Anion Gap 16 BUN 60 H Creatinine 2.72 H Estim Creat Clear Calc 24.8 Estimated GFR 23 POC Glucose Random Glucose 201 H Calcium 8.1 L Magnesium 2.2 Iron TIBC % Saturation Unsat Iron Binding Total Bilirubin 0.6 Direct Bilirubin 0.3 AST 31 D ALT 16 Alkaline Phosphatase 104 D Total Creatine Kinase Troponin I High Sens B-Natriuretic Peptide Total Protein 7.1 D Albumin 2.8 L Urine Color Urine Appearance Urine pH Ur Specific [place] Urine Protein Urine Glucose (UA) Urine Ketones Urine Blood Urine Nitrite Ur Leukocyte Esterase Urine RBC Urine WBC Ur Squamous Epith Cells Urine Bacteria Hyaline Casts Urine Osmolality Ur Random Sodium Urine Creatinine Stool Occult Blood COVID-19 (JACQUELYN) Negative COVID-19 Clin Com See Note Blood Type Antibody Screen Crossmatch 06/02/22 06/02/22 06/02/22 20:01 20:01 20:01 WBC RBC Hgb Hct MCV MCH MCHC RDW Plt Count MPV Immature Gran % (Auto) Neut % (Auto) Lymph % (Auto) [place] % (Auto) Eos % (Auto) Baso % (Auto) Lymph # (Auto) [place] # (Auto) Eos # (Auto) Baso # (Auto) Abs Immat Gran (auto) Absolute Neuts (auto) Absolute Nucleated RBC Nucleated RBC % (auto) VBG pH VBG pCO2 VBG pO2 VBG HCO3 VBG O2 Saturation VBG Base Excess Sodium Potassium Chloride Carbon Dioxide Anion Gap BUN Creatinine Estim Creat Clear Calc Estimated GFR POC Glucose Random Glucose Calcium Magnesium Iron 36 L TIBC 206 L % Saturation 17 Unsat Iron Binding 170 Total Bilirubin Direct Bilirubin AST ALT Alkaline Phosphatase Total Creatine Kinase 134 Troponin I High Sens B-Natriuretic Peptide 296 H Total Protein Albumin Urine Color Urine Appearance Urine pH Ur Specific [place] Urine Protein Urine Glucose (UA) Urine Ketones Urine Blood Urine Nitrite Ur Leukocyte Esterase Urine RBC Urine WBC Ur Squamous Epith Cells Urine Bacteria Hyaline Casts Urine Osmolality Ur Random Sodium Urine Creatinine Stool Occult Blood COVID-19 (JACQUELYN) COVID-19 Clin Com Blood Type Antibody Screen Crossmatch 06/02/22 06/02/22 06/02/22 20:02 20:13 20:19 WBC RBC Hgb Hct MCV MCH MCHC RDW Plt Count MPV Immature Gran % (Auto) Neut % (Auto) Lymph % (Auto) [place] % (Auto) Eos % (Auto) Baso % (Auto) Lymph # (Auto) [place] # (Auto) Eos # (Auto) Baso # (Auto) Abs Immat Gran (auto) Absolute Neuts (auto) Absolute Nucleated RBC Nucleated RBC % (auto) VBG pH 7.39 VBG pCO2 31 VBG pO2 143 VBG HCO3 19 L VBG O2 Saturation 99.0 VBG Base Excess -5.0 Sodium Potassium Chloride Carbon Dioxide Anion Gap BUN Creatinine Estim Creat Clear Calc Estimated GFR POC Glucose Random Glucose Calcium Magnesium Iron TIBC % Saturation Unsat Iron Binding Total Bilirubin Direct Bilirubin AST ALT Alkaline Phosphatase Total Creatine Kinase Troponin I High Sens B-Natriuretic Peptide Total Protein Albumin Urine Color Urine Appearance Urine pH Ur Specific [place] Urine Protein Urine Glucose (UA) Urine Ketones Urine Blood Urine Nitrite Ur Leukocyte Esterase Urine RBC Urine WBC Ur Squamous Epith Cells Urine Bacteria Hyaline Casts Urine Osmolality Ur Random Sodium Urine Creatinine Stool Occult Blood POSITIVE COVID-19 (JACQUELYN) COVID-19 Clin [facility] Blood Type O Positive Antibody Screen NEGATIVE Crossmatch See Detail 06/02/22 06/02/22 06/03/22 23:21 23:21 00:29 WBC RBC Hgb Hct MCV MCH MCHC RDW Plt Count MPV Immature Gran % (Auto) Neut % (Auto) Lymph % (Auto) [place] % (Auto) Eos % (Auto) Baso % (Auto) Lymph # (Auto) [place] # (Auto) Eos # (Auto) Baso # (Auto) Abs Immat Gran (auto) Absolute Neuts (auto) Absolute Nucleated RBC Nucleated RBC % (auto) VBG pH VBG pCO2 VBG pO2 VBG HCO3 VBG O2 Saturation VBG Base Excess Sodium Potassium Chloride Carbon Dioxide Anion Gap BUN Creatinine Estim Creat Clear Calc Estimated GFR POC Glucose Random Glucose Calcium Magnesium Iron TIBC % Saturation Unsat Iron Binding Total Bilirubin Direct Bilirubin AST ALT Alkaline Phosphatase Total Creatine Kinase Troponin I High Sens 9.3 10.5 B-Natriuretic Peptide Total Protein Albumin Urine Color Yellow Urine Appearance Clear Urine pH 5.5 Ur Specific [place] 1.015 Urine Protein Trace Urine Glucose (UA) Negative Urine Ketones Negative Urine Blood Moderate (2+) H Urine Nitrite Negative Ur Leukocyte Esterase Trace H Urine RBC 11-20 H Urine WBC 0-5 Ur Squamous Epith Cells 0-2 Urine Bacteria None Seen Hyaline Casts 0-2 Urine Osmolality Ur Random Sodium Urine Creatinine Stool Occult Blood COVID-19 (JACQUELYN) COVID-19 [facility] Blood Type Antibody Screen Crossmatch 06/03/22 06/03/22 06/03/22 00:29 00:29 00:29 WBC RBC Hgb Hct MCV MCH MCHC RDW Plt Count MPV Immature Gran % (Auto) Neut % (Auto) Lymph % (Auto) [place] % (Auto) Eos % (Auto) Baso % (Auto) Lymph # (Auto) [place] # (Auto) Eos # (Auto) Baso # (Auto) Abs Immat Gran (auto) Absolute Neuts (auto) Absolute Nucleated RBC Nucleated RBC % (auto) VBG pH VBG pCO2 VBG pO2 VBG HCO3 VBG O2 Saturation VBG Base Excess Sodium Potassium Chloride Carbon Dioxide Anion Gap BUN Creatinine Estim Creat Clear Calc Estimated GFR POC Glucose Random Glucose Calcium Magnesium Iron TIBC % Saturation Unsat Iron Binding Total Bilirubin Direct Bilirubin AST ALT Alkaline Phosphatase Total Creatine Kinase Troponin I High Sens B-Natriuretic Peptide Total Protein Albumin Urine Color Urine Appearance Urine pH Ur Specific [place] Urine Protein Urine Glucose (UA) Urine Ketones Urine Blood Urine Nitrite Ur Leukocyte Esterase Urine RBC Urine WBC Ur Squamous Epith Cells Urine Bacteria Hyaline Casts Urine Osmolality 456 Ur Random Sodium 67.0 Urine Creatinine 139.37 Stool Occult Blood COVID-19 (JACQUELYN) COVID-19 [facility] Blood Type Antibody Screen Crossmatch 06/03/22 07:24 WBC RBC Hgb Hct MCV MCH MCHC RDW Plt Count MPV Immature Gran % (Auto) Neut % (Auto) Lymph % (Auto) [place] % (Auto) Eos % (Auto) Baso % (Auto) Lymph # (Auto) [place] # (Auto) Eos # (Auto) Baso # (Auto) Abs Immat Gran (auto) Absolute Neuts (auto) Absolute Nucleated RBC Nucleated RBC % (auto) VBG pH VBG pCO2 VBG pO2 VBG HCO3 VBG O2 Saturation VBG Base Excess Sodium Potassium Chloride Carbon Dioxide Anion Gap BUN Creatinine Estim Creat Clear Calc Estimated GFR POC Glucose 179 H Random Glucose Calcium Magnesium Iron TIBC % Saturation Unsat Iron Binding Total Bilirubin Direct Bilirubin AST ALT Alkaline Phosphatase Total Creatine Kinase Troponin I High Sens B-Natriuretic Peptide Total Protein Albumin Urine Color Urine Appearance Urine pH Ur Specific [place] Urine Protein Urine Glucose (UA) Urine Ketones Urine Blood Urine Nitrite Ur Leukocyte Esterase Urine RBC Urine WBC Ur Squamous Epith Cells Urine Bacteria Hyaline Casts Urine Osmolality Ur Random Sodium Urine Creatinine Stool Occult Blood COVID-19 (JACQUELYN) COVID-19 Clin Com Blood Type Antibody Screen Crossmatch Imaging Radiologist's impression: Impressions Chest X-Ray 06/02/22 20:24 IMPRESSION: 1. Blunted posterior right costophrenic sulcus suspicious for trace right pleural effusion. 2. No airspace consolidation or evidence of pulmonary edema.
--- NOTE | 2022-06-03 08:15 | P.CNGI_ITS ---
History of Present Illness Data of Consult Service Date: 06/03/22 Requesting physician: Nancie Sanchez Primary Care Provider: Sherif Oconnor III, MD HPI Reason for consult: Worsening anemia This is a 71-year-old gentleman with past medical history of decompensated cirrhosis status post liver transplantation 2017 on tacrolimus, type 2 diabetes, chronic heart failure, recent admission for osteomyelitis of the spine, atrial fibrillation on Eliquis, who presented to the hospital for worsening dyspnea on exertion and ZOILA noted on labs done by outpatient mangle tender. In terms of his gastrointestinal history, patient does not report any abdominal pain, nausea, vomiting, changes in appetite. He has been taking his pantoprazole as prescribed. He does not soft dark stools, but states that has been unchanged from his last hospitalization. Denies overt hematochezia. Describes worsening dyspnea on exertion and orthopnea. At home had been lying on an incline. Feels much better since diuresis overnight, currently was lying flat at the time of my encounter. He last took his Eliquis yesterday morning. Pertinent history includes worsening of his aortic stenosis that was noted on echocardiogram done to rule out endocarditis. However, at that time as patient was in atrial fibrillation accurate variables could not be obtained. 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 Patient is also on tacrolimus status post liver transplantation at [facility] 5 years ago. Most recent tacrolimus level was 4.5 on 05/25. Recent endoscopy: EGD 05/22: Ind- abnormal CT scan of the duodenum and anemia. Found to have gastritis with multiple chronic appearing ulcers in the body and antrum without high-risk stigmata. Also had large 2-3 cm clean based ulcer in the duodenal bulb and 2nd portion of the duodenum. Path report showed chronic and active duodenitis and gastritis without H pylori. No viral changes histologically. CMV immunostain pending. Review of Systems Review of Systems: Yes all other systems are reviewed and are negative PMFSH Past Medical History Medical History Acute diastolic (congestive) heart failure Aortic stenosis Diabetes Duodenitis Fatty liver GERD (gastroesophageal reflux disease) Gram-positive bacteremia Hypercholesteremia Hypertension Non-rheumatic aortic stenosis Osteomyelitis PAF (paroxysmal atrial fibrillation) Family History Family History Mother Myocardial infarct Surgical History Surgical History History of back surgery Hx of colonoscopy Hx of lymph node excision Liver transplant recipient Social History Social History Household Members: Spouse Housing: House Do you presently have visiting nurse or other home services: No Patient Tobacco Use Status: Never used Tobacco Advance Directives: Yes Advance Directives on File: Yes Advance Directives Date on File: 05/19/22 service: No Current occupational status: retired Meds Allergies Allergy/AdvReac Type Severity Reaction Status Date / Time ibuprofen [IBUPROFEN] Allergy Severe SWELLING Verified 06/02/22 14:39 peanut [PEANUTS] Allergy Unknown SWELLING Verified 06/02/22 14:39 Active Medications: Current Medications Acetaminophen (Acetaminophen Supp 650 Mg Supp.Rect) 650 mg RI Q6H PRN PRN Reason: Pain, Mild (Pain Scale 1-3) Amlodipine Besylate (Amlodipine Besylate 10 Mg Tablet) 10 mg PO DAILY [facility]; Protocol Ascorbic Acid (Ascorbic Acid 500 Mg Tablet) 500 mg PO DAILY [facility] Atorvastatin Calcium (Atorvastatin Calcium 20 Mg Tablet) 20 mg PO BEDTIME [facility] Last Admin: 06/02/22 23:25 Dose: 20 mg Clonidine HCl (Clonidine Hcl 0.1 Mg Tablet) 0.1 mg PO BID [facility]; Protocol Last Admin: 06/02/22 23:25 Dose: 0.1 mg Daptomycin (Daptomycin 500 Mg/10 Ml Vial) 500 mg IV Q24H PATRICIA Docusate Sodium (Docusate Sodium 100 Mg Capsule) 100 mg PO BID [facility] Last Admin: 06/02/22 23:26 Dose: 100 mg Furosemide (Furosemide 40 Mg/4 Ml Vial) 40 mg IVPUSH Q12H [facility]; Protocol Last Admin: 06/02/22 23:26 Dose: 40 mg Hydromorphone HCl (Hydromorphone Hcl 0.5 Mg/0.5 Ml Syringe) 0.5 mg IVPUSH Q4H PRN; Protocol PRN Reason: Pain, Severe (Pain Scale 7-10) Insulin Human Lispro (Insulin Lispro 100 Unit/Ml 3 Ml Vial) 0 unit SUBCUT QIDACHS [facility]; Protocol Lisinopril (Lisinopril 2.5 Mg Tablet) 2.5 mg PO DAILY [facility]; Protocol Multivitamins/Vitamin C (Multivitamin Tablet) 1 tab PO DAILY [facility] Ondansetron HCl (Ondansetron Hcl 4 Mg/2 Ml Vial) 4 mg IVPUSH Q8H PRN PRN Reason: Nausea and Vomiting Oxycodone HCl (Oxycodone Hcl Immed Release 5 Mg Tablet) 5 mg PO Q6H PRN PRN Reason: Pain, Moderate (Pain Scale 4-6 Pantoprazole Sodium (Pantoprazole Sodium 40 Mg/10 Ml Vial) 40 mg IVPUSH BID@0630,1630 [facility] Last Admin: 06/03/22 06:51 Dose: 40 mg Pharmacy Consult (Consult Rx Perform Med Rec) 1 each MISCELLANE ONCE PRN PRN Reason: Consult order Senna (Sennosides 8.6 Mg Tablet) 17.2 mg PO BEDTIME [facility] Last Admin: 06/02/22 23:26 Dose: 17.2 mg Sodium Chloride (0.9 % Sodium Chloride Flush 3 Ml Syringe) [facility] Last Admin: 06/03/22 01:06 Dose: Not Given Tacrolimus (Tacrolimus 1 Mg Capsule) 1 mg PO BID [facility] Last Admin: 06/02/22 23:26 Dose: 1 mg Vitamin D (Cholecalciferol (Vitamin D3) 25 Mcg Tablet) 25 mcg PO DAILY [facility] Home Medications Medication Instructions Recorded Confirmed Last Taken Type ascorbic acid (vitamin C) 500 mg 500 mg PO DAILY 05/19/22 06/02/22 06/02/22 History tablet (Vitamin C) cholecalciferol (vitamin D3) 25 25 mcg PO DAILY 05/19/22 06/02/22 06/02/22 History mcg (1,000 unit) tablet (Vitamin D3) docusate sodium 100 mg capsule 100 mg PO BID 05/19/22 06/02/22 06/02/22 History (Colace) multivitamin 1 tab PO DAILY 05/19/22 06/02/22 06/02/22 History sennosides 8.6 mg tablet (senna) 17.2 mg PO BEDTIME 05/19/22 06/02/22 06/01/22 History amlodipine 10 mg tablet 10 mg PO DAILY 06/02/22 06/02/22 06/02/22 History atorvastatin 20 mg tablet 20 mg PO BEDTIME 06/02/22 06/02/22 06/01/22 History clonidine HCl 0.1 mg tablet 0.1 mg PO BID 06/02/22 06/02/22 06/02/22 History lisinopril 2.5 mg tablet 2.5 mg PO DAILY 06/02/22 06/02/22 06/02/22 History repaglinide 0.5 mg tablet 0.5 mg PO TIDAC 06/02/22 06/02/22 06/02/22 History sitagliptin 50 mg tablet (Januvia) 50 mg PO DAILY 06/02/22 06/02/22 06/02/22 History tacrolimus 1 mg capsule, 1 mg PO BID 06/02/22 06/02/22 06/02/22 History immediate-release Physical Exam Vital Signs: Vital Signs: Last Vital Signs Temp 97.7 F 06/03/22 08:07 Pulse 75 06/03/22 08:07 Resp 16 06/03/22 08:07 BP 143/70 H 06/03/22 08:07 Pulse Ox 99 06/03/22 08:07 O2 Del Method 06/03/22 08:07 BMI result Body Mass Index 40.8 Gen appear: No acute distress, pale appearing HEENT: no icterus, no cervical lymphadenopathy Chest: No overt resp distress CVS: S1/S2, grade IV early systolic murmur Abd: soft, nontender, nondistended Psych: Stable affect, answering questions appropriately Neuro: A/Ox3 noted to move all extremities spontaneously Ext: +3 pitting edema to mid thighs Results Labs CBC & Chem 7: 06/03/22 09:24 06/03/22 09:24 Labs: Short CBC 06/02/22 Range/Units 20:01 WBC 3.0 L (4.8-10.8) X10*3/uL Hgb 7.7 L (14.0-18.0) g/dl Hct 22.3 L (42.0-52.0) % Plt Count 192 (160-400) X10*3/uL BMP 06/02/22 20:01 Sodium 139 Potassium 4.5 Chloride 109 H Carbon Dioxide 19 L BUN 60 H Creatinine 2.72 H Calcium 8.1 L Cardiac Enzymes 06/02/22 Range/Units 20:01 Total Creatine Kinase 134 (38-174) U/L Liver Function 06/02/22 Range/Units 20:01 Total Bilirubin 0.6 (0.0-1.0) mg/dL Direct Bilirubin 0.3 (0.0-0.5) mg/dL AST 31 D (5-37) U/L ALT 16 (0-40) U/L Alkaline Phosphatase 104 D (39-117) U/L Albumin 2.8 L (3.5-5.0) g/dL Urine 06/03/22 Range/Units 00:29 Urine Color Yellow Urine Appearance Clear Urine pH 5.5 (5.0-9.0) Ur Specific [place] 1.015 (1.005-1.025) Urine Protein Trace (Neg-Trace) mg/dL Urine Glucose (UA) Negative (Negative) mg/dL Assessment and Plan (1) Anemia: Status: Acute (2) Duodenal ulcer: Status: Acute (3) Non-rheumatic aortic stenosis: Status: Acute (4) Acute diastolic (congestive) heart failure: Status: Acute DDx include anemia of blood loss from GIB (pt wiht known duo ulcers, + at risk for AVMs), inflammatory anemia given ongoing osteomyelitis (ferritin not checked but TIBC low), hemolysis in this pt with . Recommendations: - Ensure two large bore IV access at all times - Active type and screen - Transfuse for Hb <7 - Pantoprazole 40mg BID (IV or PO) - Hemolysis labs - Add on ferritin and CRP - Cardiology consult appreciated, if cleared from Cardiology standpoint, can consider EGD +/- push enteroscopy tomorrow or Wednesday (48-72h from last eliquis dose as pt has reduced GFR in the setting of acute ZOILA) - Can have clear liquids today. Pls keep NPO after MN for EGD tentatively tomorrow. - Please alert GI service dre if pt demonstrates overt GI hemorrhage, for urgent endoscopy Communicated with hospitalist over the phone Procedures Date of Service Date of Service: 06/03/22
[2022-06-03] MEDS: Tacrolimus 1 MG CAPSULE PO ×2 (08:21→22:33)
[2022-06-03] MEDS: Cholecalciferol (Vitamin D3) 25 MCG TABLET PO (08:21)
[2022-06-03] MEDS: cloNIDine HCL 0.1 MG TABLET PO ×2 (08:22→22:33)
[2022-06-03] MEDS: Insulin Lispro 100 UNIT/ML 3 ML VIAL SUBCUT ×2 (08:22→22:32)
[2022-06-03] MEDS: Multivitamin TABLET 1 TAB PO (08:22)
[2022-06-03] MEDS: lisinopriL 2.5 MG TABLET PO (08:22)
[2022-06-03] MEDS: Docusate Sodium 100 MG CAPSULE PO ×2 (08:22→22:32)
[2022-06-03] MEDS: amLODIPine Besylate 10 MG TABLET PO (08:22)
[2022-06-03] MEDS: Ascorbic Acid 500 MG TABLET PO (08:22)
[2022-06-03] MEDS: Furosemide 40 MG/4 ML VIAL IVPUSH ×2 (08:24→22:32)
[2022-06-03] MEDS: 0.9 % Sodium Chloride Flush 3 ML SYRINGE IVFLUSH (08:28)
--- NOTE | 2022-06-03 08:29 | PC.NURSE ---
alert, nad, denies complaints, skin wpd, steady transfer without dizziness to commode and had a bm, medicated as ordered
[2022-06-03 09:28] LABS: MANUAL DIFF FLAG NO
[2022-06-03 09:30] LABS: Basophils Percent Auto 0.7 % (0-2); Eosinophils Percent Auto 1.1 % (0-4); Hematocrit 21.4 % (42.0-52.0); Hemoglobin 7.3 g/dl (14.0-18.0); Imm Gran Abs Auto 0.02 X10*3/uL (0.00-0.03); Imm Gran Pct Auto 0.7 % (0.0-0.4); Lymphocytes Percent Auto 36.3 % (20-40); Mean Corpuscular HGB Conc 34.1 g/dl (31.0-36.0); Mean Corpuscular Volume 93.9 fL (80.0-98.0); Mean Platelet Volume 9.6 fL (9.4-12.4); Monocytes Absolute Auto 0.2 X10*3/uL (0.1-1.2); Monocytes Percent Auto 5.7 % (2-11); Neutrophils Absolute Auto 1.6 x10*3/uL (2.0-8.3); Neutrophils Percent Auto 55.5 % (45-73); Platelet Count 172 X10*3/uL (160-400); Red Blood Count 2.28 X10*6/uL (4.60-5.80); Red Cell Distribution Width 13.6 % (11.0-16.0); White Blood Count 2.8 X10*3/uL (4.8-10.8)
--- NOTE | 2022-06-03 09:43 | MHC.CM.PN ---
Patient lives in a house with his /HCP/Noreen @ [phone], his Daughter and his 2 Grandchildren and he has a walker available to him that he seldom uses. Home/resume [facility] & [facility]( is giving QD Antibiotics to Patient through a port), is the goal and CM has initiated and will follow for dc planning. PCP is Dr. Sherif Oconnor and Patient has received Moderna/Covid vax X3.
[2022-06-03 09:48] LABS: Anion Gap 17 (12-20); Blood Urea Nitrogen 53 mg/dL (9-16); Carbon Dioxide 16 mmol/L (22-29); Chloride 108 mmol/L (96-108); Creatinine Clr Calc Pharmacy 28.4; Estimated Glomerular Filt Rate 27; Glucose Random 246 mg/dL (60-115); Potassium 4.5 mmol/L (3.3-5.1); Sodium 136 mmol/L (135-145)
[2022-06-03 12:10] LABS: Immature Retic Fraction 21.9 % (2.3-13.4); Retic HGB Equivalent 38.6 pg (30.0-35.0); Reticulocyte Percent 3.4 % (0.5-1.8); Reticulocytes Absolute 0.076 X10*6/uL (0.026-0.095)
[2022-06-03 12:25] LABS: Alanine Aminotransferase 17 U/L (0-40); Albumin Level 2.6 g/dL (3.5-5.0); Alkaline Phosphatase 89 U/L (39-117); Aspartate Amino Transferase 34 U/L (5-37); Bilirubin Direct 0.3 mg/dL (0.0-0.5); Bilirubin Total 0.6 mg/dL (0.0-1.0); Lactate Dehydrogenase 247 U/L (118-273); Total Protein 6.6 g/dL (6.5-8.0)
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
--- NOTE | 2022-06-03 13:03 | W.PM.IDCN ---
History of Present Illness Data of Consult Service Date: 06/03/22 Requesting physician: Flaco Mclean Primary Care Provider: Sherif Oconnor III, MD HPI Reason for consult: f/u staph aureus bacteremia He presents with weakness and fatigue. He was hospitalized 05/20-05/25 for staph aureus bacteremia and presumed osteomyelitis L1-L2. He still has 7/10 right sided back pain now and no fever. He has cleared bacteremia. He has acute renal insufficiency. Review of Systems Review of Systems: Yes all other systems are reviewed and are negative PMF Past Medical History Medical History Acute diastolic (congestive) heart failure Aortic stenosis Diabetes Duodenitis Fatty liver GERD (gastroesophageal reflux disease) Gram-positive bacteremia Hypercholesteremia Hypertension Non-rheumatic aortic stenosis Osteomyelitis PAF (paroxysmal atrial fibrillation) Family History Family History Mother Myocardial infarct Family history: reviewed and not pertinent Surgical History Surgical History History of back surgery Hx of colonoscopy Hx of lymph node excision Liver transplant recipient Social History Social History Household Members: Spouse Housing: House Do you presently have visiting nurse or other home services: No Patient Tobacco Use Status: Never used Tobacco Advance Directives: Yes Advance Directives on File: Yes Advance Directives Date on File: 05/19/22 service: No Current occupational status: retired Meds Allergies Allergy/AdvReac Type Severity Reaction Status Date / Time ibuprofen [IBUPROFEN] Allergy Severe SWELLING Verified 06/02/22 14:39 peanut [PEANUTS] Allergy Unknown SWELLING Verified 06/02/22 14:39 Active Medications: Current Medications Acetaminophen (Acetaminophen Supp 650 Mg Supp.Rect) 650 mg SD Q6H PRN PRN Reason: Pain, Mild (Pain Scale 1-3) Amlodipine Besylate (Amlodipine Besylate 10 Mg Tablet) 10 mg PO DAILY [facility]; Protocol Last Admin: 06/03/22 08:22 Dose: 10 mg Ascorbic Acid (Ascorbic Acid 500 Mg Tablet) 500 mg PO DAILY [facility] Last Admin: 06/03/22 08:22 Dose: 500 mg Atorvastatin Calcium (Atorvastatin Calcium 20 Mg Tablet) 20 mg PO BEDTIME [facility] Last Admin: 06/02/22 23:25 Dose: 20 mg Clonidine HCl (Clonidine Hcl 0.1 Mg Tablet) 0.1 mg PO BID [facility]; Protocol Last Admin: 06/03/22 08:22 Dose: 0.1 mg Daptomycin (Daptomycin 500 Mg/10 Ml Vial) 500 mg IV Q24H [facility] Docusate Sodium (Docusate Sodium 100 Mg Capsule) 100 mg PO BID [facility] Last Admin: 06/03/22 08:22 Dose: 100 mg Furosemide (Furosemide 40 Mg/4 Ml Vial) 40 mg IVPUSH Q12H [facility]; Protocol Last Admin: 06/03/22 08:24 Dose: 40 mg Hydromorphone HCl (Hydromorphone Hcl 0.5 Mg/0.5 Ml Syringe) 0.5 mg IVPUSH Q4H PRN; Protocol PRN Reason: Pain, Severe (Pain Scale 7-10) Insulin Human Lispro (Insulin Lispro 100 Unit/Ml 3 Ml Vial) 0 unit SUBCUT QIDACHS [facility]; Protocol Last Admin: 06/03/22 08:22 Dose: 2 unit Lisinopril (Lisinopril 2.5 Mg Tablet) 2.5 mg PO DAILY [facility]; Protocol Last Admin: 06/03/22 08:22 Dose: 2.5 mg Multivitamins/Vitamin C (Multivitamin Tablet) 1 tab PO DAILY [facility] Last Admin: 06/03/22 08:22 Dose: 1 tab Ondansetron HCl (Ondansetron Hcl 4 Mg/2 Ml Vial) 4 mg IVPUSH Q8H PRN PRN Reason: Nausea and Vomiting Oxycodone HCl (Oxycodone Hcl Immed Release 5 Mg Tablet) 5 mg PO Q6H PRN PRN Reason: Pain, Moderate (Pain Scale 4-6 Pantoprazole Sodium (Pantoprazole Sodium 40 Mg/10 Ml Vial) 40 mg IVPUSH BID@0630,1630 [facility] Last Admin: 06/03/22 06:51 Dose: 40 mg Pharmacy Consult (Consult Rx Perform Med Rec) 1 each MISCELLANE ONCE PRN PRN Reason: Consult order Senna (Sennosides 8.6 Mg Tablet) 17.2 mg PO BEDTIME [facility] Last Admin: 06/02/22 23:26 Dose: 17.2 mg Sodium Chloride (0.9 % Sodium Chloride Flush 3 Ml Syringe) 3 ml IVFLUSH QSHIFT [facility] Last Admin: 06/03/22 08:28 Dose: 3 ml Tacrolimus (Tacrolimus 1 Mg Capsule) 1 mg PO BID [facility] Last Admin: 06/03/22 08:21 Dose: 1 mg Vitamin D (Cholecalciferol (Vitamin D3) 25 Mcg Tablet) 25 mcg PO DAILY [facility] Last Admin: 06/03/22 08:21 Dose: 25 mcg Home Medications Medication Instructions Recorded Confirmed Last Taken Type ascorbic acid (vitamin C) 500 mg 500 mg PO DAILY 05/19/22 06/02/22 06/02/22 History tablet (Vitamin C) cholecalciferol (vitamin D3) 25 25 mcg PO DAILY 05/19/22 06/02/22 06/02/22 History mcg (1,000 unit) tablet (Vitamin D3) docusate sodium 100 mg capsule 100 mg PO BID 05/19/22 06/02/22 06/02/22 History (Colace) multivitamin 1 tab PO DAILY 05/19/22 06/02/22 06/02/22 History sennosides 8.6 mg tablet (senna) 17.2 mg PO BEDTIME 05/19/22 06/02/22 06/01/22 History amlodipine 10 mg tablet 10 mg PO DAILY 06/02/22 06/02/22 06/02/22 History atorvastatin 20 mg tablet 20 mg PO BEDTIME 06/02/22 06/02/22 06/01/22 History clonidine HCl 0.1 mg tablet 0.1 mg PO BID 06/02/22 06/02/22 06/02/22 History lisinopril 2.5 mg tablet 2.5 mg PO DAILY 06/02/22 06/02/22 06/02/22 History repaglinide 0.5 mg tablet 0.5 mg PO TIDAC 06/02/22 06/02/22 06/02/22 History sitagliptin 50 mg tablet (Januvia) 50 mg PO DAILY 06/02/22 06/02/22 06/02/22 History tacrolimus 1 mg capsule, 1 mg PO BID 06/02/22 06/02/22 06/02/22 History immediate-release Physical Exam Vital Signs: Vital Signs: Last Vital Signs Temp 97.7 F 06/03/22 08:07 Pulse 75 06/03/22 08:07 Resp 16 06/03/22 08:07 BP 143/70 H 06/03/22 08:07 Pulse Ox 99 06/03/22 08:07 O2 Del Method 06/03/22 08:07 BMI result Body Mass Index 40.8 Const: General: cooperative HEENT: Head: Yes normal to inspection Face and sinus: Yes normal facial exam Mouth: Normal oral and palatal mucosa present Teeth and gingiva: dentition normal Eyes: General: appearance normal, both eyes and all related structures Pupils: Equal, round and reactive pupils present Resp: Effort & Inspection: normal respiratory effort Cardio: Rate: regular rate Rhythm: regular rhythm Heart sounds: Murmur heart sound present (3/6 RAYNA) GI: Palpation (GI): Soft to palpation and nontender : General: Yes no CVA tenderness Back/Spine/Pelvis: Back: no CVA tenderness Skin: General skin exam: no rashes or lesions noted Neuro: General: moves all extremities Cranial nerves: Yes Equal, round and reactive pupils present Extrem: General: Yes normal to inspection Psych: Appearance: grossly normal Results Labs CBC & Chem 7: 06/03/22 09:24 06/03/22 09:24 Labs: Short CBC 06/02/22 06/03/22 Range/Units 20:01 09:24 WBC 3.0 L 2.8 L (4.8-10.8) X10*3/uL Hgb 7.7 L 7.3 L (14.0-18.0) g/dl Hct 22.3 L 21.4 L (42.0-52.0) % Plt Count 192 172 (160-400) X10*3/uL BMP 06/02/22 06/03/22 20:01 09:24 Sodium 139 136 Potassium 4.5 4.5 Chloride 109 H 108 Carbon Dioxide 19 L 16 L BUN 60 H 53 H Creatinine 2.72 H 2.38 H Calcium 8.1 L 8.0 L Cardiac Enzymes 06/02/22 Range/Units 20:01 Total Creatine Kinase 134 (38-174) U/L Liver Function 06/02/22 06/03/22 Range/Units 20:01 09:24 Total Bilirubin 0.6 0.6 (0.0-1.0) mg/dL Direct Bilirubin 0.3 0.3 (0.0-0.5) mg/dL AST 31 D 34 (5-37) U/L ALT 16 17 (0-40) U/L Alkaline Phosphatase 104 D 89 (39-117) U/L Albumin 2.8 L 2.6 L (3.5-5.0) g/dL Urine 06/03/22 Range/Units 00:29 Urine Color Yellow Urine Appearance Clear Urine pH 5.5 (5.0-9.0) Ur Specific [place] 1.015 (1.005-1.025) Urine Protein Trace (Neg-Trace) mg/dL Urine Glucose (UA) Negative (Negative) mg/dL Assessment and Plan (1) Duodenal ulcer: Status: Acute (2) Anemia: Status: Acute (3) Osteomyelitis: Status: Acute He is day (done 06/30) of Daptomycin for staph aureus bacteremia presumed to be from osteomyelitis in LS spine. He also appears to have some CHF and do need to have valves investigated for endocarditis. Staph aureus bacteremia has cleared and there didnt appear indication for cardiac surgery evaluation in past. ARF is present and could be from dehydration,CHF,acute interstitial nephritis. (4) PAF (paroxysmal atrial fibrillation): Status: Acute (5) Non-rheumatic aortic stenosis: Status: Acute (6) Acute diastolic (congestive) heart failure: Status: Acute (7) ZOILA (acute kidney injury): Status: Acute Plan Continue Daptomycin for now but renal dose adjust and check CK. Evaluate echo Particularly if bacteremia reappears would check HARVEY. Renal evaluation pending.
[2022-06-03 13:35] LABS: Glucose, Whole Blood 165 mg/dL (60-115)
--- NOTE | 2022-06-03 14:19 | P.PNCA_ITS ---
Subjective Subjective Date of Service: 06/03/22 Interval history: Seen and examined at bedside. Doing better. Still volume overloaded. Physical Exam Vital Signs: Last Vital Signs Temp 98 F 06/03/22 13:58 Pulse 68 06/03/22 13:58 Resp 17 06/03/22 13:58 BP 139/58 L 06/03/22 13:58 Pulse Ox 99 06/03/22 08:07 O2 Del Method 06/03/22 08:07 BMI result Body Mass Index 40.8 GENERAL APPEARANCE: in no acute distress. NECK: no carotid bruit, + jugular venous distention. SKIN: no suspicious lesions, warm and dry. HEART: ESM aortic area, no 2nd heart sound, regular rate and rhythm. LUNGS: clear to auscultation bilaterally. ABDOMEN: soft, nontender. EXTREMITIES: 1-2 + edema PERIPHERAL PULSES: equal. NEUROLOGIC: AAO x 3 Objective Labs and Meds Result diagrams: 06/03/22 09:24 06/03/22 09:24 Lab results: Laboratory Results - last 24 hr 06/02/22 06/02/22 06/02/22 20:01 20:01 20:01 WBC 3.0 L RBC 2.37 L Hgb 7.7 L Hct 22.3 L MCV 94.1 MCH 32.5 MCHC 34.5 RDW 13.5 Plt Count 192 MPV 9.5 Immature Gran % (Auto) 0.7 H Neut % (Auto) 44.6 L Lymph % (Auto) 46.3 H [place] % (Auto) 6.7 Eos % (Auto) 1.0 Baso % (Auto) 0.7 Lymph # (Auto) 1.4 Trinity # (Auto) 0.2 Eos # (Auto) 0.0 Baso # (Auto) 0.0 Abs Immat Gran (auto) 0.02 Absolute Neuts (auto) 1.3 L Absolute Nucleated RBC 0.000 Nucleated RBC % (auto) 0.0 Absolute Retic Percent Retic Immature Retic Fraction Retic Hgb Equivalent VBG pH VBG pCO2 VBG pO2 VBG HCO3 VBG O2 Saturation VBG Base Excess Sodium 139 Potassium 4.5 Chloride 109 H Carbon Dioxide 19 L Anion Gap 16 BUN 60 H Creatinine 2.72 H Estim Creat Clear Calc 24.8 Estimated GFR 23 POC Glucose Random Glucose 201 H Calcium 8.1 L Magnesium 2.2 Iron TIBC % Saturation Unsat Iron Binding Total Bilirubin 0.6 Direct Bilirubin 0.3 AST 31 D ALT 16 Alkaline Phosphatase 104 D Lactate Dehydrogenase Total Creatine Kinase Troponin I High Sens B-Natriuretic Peptide Total Protein 7.1 D Albumin 2.8 L Urine Color Urine Appearance Urine pH Ur Specific [place] Urine Protein Urine Glucose (UA) Urine Ketones Urine Blood Urine Nitrite Ur Leukocyte Esterase Urine RBC Urine WBC Ur Squamous Epith Cells Urine Bacteria Hyaline Casts Urine Osmolality Ur Random Sodium Urine Creatinine Stool Occult Blood COVID-19 (JACQUELYN) Negative COVID-19 Clin Com See Note Blood Type Antibody Screen Crossmatch 06/02/22 06/02/22 06/02/22 20:01 20:01 20:01 WBC RBC Hgb Hct MCV MCH MCHC RDW Plt Count MPV Immature Gran % (Auto) Neut % (Auto) Lymph % (Auto) Trinity % (Auto) Eos % (Auto) Baso % (Auto) Lymph # (Auto) Trinity # (Auto) Eos # (Auto) Baso # (Auto) Abs Immat Gran (auto) Absolute Neuts (auto) Absolute Nucleated RBC Nucleated RBC % (auto) Absolute Retic Percent Retic Immature Retic Fraction Retic Hgb Equivalent VBG pH VBG pCO2 VBG pO2 VBG HCO3 VBG O2 Saturation VBG Base Excess Sodium Potassium Chloride Carbon Dioxide Anion Gap BUN Creatinine Estim Creat Clear Calc Estimated GFR POC Glucose Random Glucose Calcium Magnesium Iron 36 L TIBC 206 L % Saturation 17 Unsat Iron Binding 170 Total Bilirubin Direct Bilirubin AST ALT Alkaline Phosphatase Lactate Dehydrogenase Total Creatine Kinase 134 Troponin I High Sens B-Natriuretic Peptide 296 H Total Protein Albumin Urine Color Urine Appearance Urine pH Ur Specific [place] Urine Protein Urine Glucose (UA) Urine Ketones Urine Blood Urine Nitrite Ur Leukocyte Esterase Urine RBC Urine WBC Ur Squamous Epith Cells Urine Bacteria Hyaline Casts Urine Osmolality Ur Random Sodium Urine Creatinine Stool Occult Blood COVID-19 (JACQUELYN) COVID-19 Clin Com Blood Type Antibody Screen Crossmatch 06/02/22 06/02/22 06/02/22 20:02 20:13 20:19 WBC RBC Hgb Hct MCV MCH MCHC RDW Plt Count MPV Immature Gran % (Auto) Neut % (Auto) Lymph % (Auto) [place] % (Auto) Eos % (Auto) Baso % (Auto) Lymph # (Auto) Trinity # (Auto) Eos # (Auto) Baso # (Auto) Abs Immat Gran (auto) Absolute Neuts (auto) Absolute Nucleated RBC Nucleated RBC % (auto) Absolute Retic Percent Retic Immature Retic Fraction Retic Hgb Equivalent VBG pH 7.39 VBG pCO2 31 VBG pO2 143 VBG HCO3 19 L VBG O2 Saturation 99.0 VBG Base Excess -5.0 Sodium Potassium Chloride Carbon Dioxide Anion Gap BUN Creatinine Estim Creat Clear Calc Estimated GFR POC Glucose Random Glucose Calcium Magnesium Iron TIBC % Saturation Unsat Iron Binding Total Bilirubin Direct Bilirubin AST ALT Alkaline Phosphatase Lactate Dehydrogenase Total Creatine Kinase Troponin I High Sens B-Natriuretic Peptide Total Protein Albumin Urine Color Urine Appearance Urine pH Ur Specific [place] Urine Protein Urine Glucose (UA) Urine Ketones Urine Blood Urine Nitrite Ur Leukocyte Esterase Urine RBC Urine WBC Ur Squamous Epith Cells Urine Bacteria Hyaline Casts Urine Osmolality Ur Random Sodium Urine Creatinine Stool Occult Blood POSITIVE COVID-19 (JACQUELYN) COVID-19 [facility] Com Blood Type O Positive Antibody Screen NEGATIVE Crossmatch See Detail 06/02/22 06/02/22 06/03/22 23:21 23:21 00:29 WBC RBC Hgb Hct MCV MCH MCHC RDW Plt Count MPV Immature Gran % (Auto) Neut % (Auto) Lymph % (Auto) Trinity % (Auto) Eos % (Auto) Baso % (Auto) Lymph # (Auto) Trinity # (Auto) Eos # (Auto) Baso # (Auto) Abs Immat Gran (auto) Absolute Neuts (auto) Absolute Nucleated RBC Nucleated RBC % (auto) Absolute Retic Percent Retic Immature Retic Fraction Retic Hgb Equivalent VBG pH VBG pCO2 VBG pO2 VBG HCO3 VBG O2 Saturation VBG Base Excess Sodium Potassium Chloride Carbon Dioxide Anion Gap BUN Creatinine Estim Creat Clear Calc Estimated GFR POC Glucose Random Glucose Calcium Magnesium Iron TIBC % Saturation Unsat Iron Binding Total Bilirubin Direct Bilirubin AST ALT Alkaline Phosphatase Lactate Dehydrogenase Total Creatine Kinase Troponin I High Sens 9.3 10.5 B-Natriuretic Peptide Total Protein Albumin Urine Color Yellow Urine Appearance Clear Urine pH 5.5 Ur Specific [place] 1.015 Urine Protein Trace Urine Glucose (UA) Negative Urine Ketones Negative Urine Blood Moderate (2+) H Urine Nitrite Negative Ur Leukocyte Esterase Trace H Urine RBC 11-20 H Urine WBC 0-5 Ur Squamous Epith Cells 0-2 Urine Bacteria None Seen Hyaline Casts 0-2 Urine Osmolality Ur Random Sodium Urine Creatinine Stool Occult Blood COVID-19 (JACQUELYN) COVID-19 [facility] Com Blood Type Antibody Screen Crossmatch 06/03/22 06/03/22 06/03/22 00:29 00:29 00:29 WBC RBC Hgb Hct MCV MCH MCHC RDW Plt Count MPV Immature Gran % (Auto) Neut % (Auto) Lymph % (Auto) [place] % (Auto) Eos % (Auto) Baso % (Auto) Lymph # (Auto) [place] # (Auto) Eos # (Auto) Baso # (Auto) Abs Immat Gran (auto) Absolute Neuts (auto) Absolute Nucleated RBC Nucleated RBC % (auto) Absolute Retic Percent Retic Immature Retic Fraction Retic Hgb Equivalent VBG pH VBG pCO2 VBG pO2 VBG HCO3 VBG O2 Saturation VBG Base Excess Sodium Potassium Chloride Carbon Dioxide Anion Gap BUN Creatinine Estim Creat Clear Calc Estimated GFR POC Glucose Random Glucose Calcium Magnesium Iron TIBC % Saturation Unsat Iron Binding Total Bilirubin Direct Bilirubin AST ALT Alkaline Phosphatase Lactate Dehydrogenase Total Creatine Kinase Troponin I High Sens B-Natriuretic Peptide Total Protein Albumin Urine Color Urine Appearance Urine pH Ur Specific [place] Urine Protein Urine Glucose (UA) Urine Ketones Urine Blood Urine Nitrite Ur Leukocyte Esterase Urine RBC Urine WBC Ur Squamous Epith Cells Urine Bacteria Hyaline Casts Urine Osmolality 456 Ur Random Sodium 67.0 Urine Creatinine 139.37 Stool Occult Blood COVID-19 (JACQUELYN) COVID-19 Clin Com Blood Type Antibody Screen Crossmatch 06/03/22 06/03/22 06/03/22 07:24 09:24 09:24 WBC 2.8 L RBC 2.28 L Hgb 7.3 L Hct 21.4 L MCV 93.9 MCH 32.0 MCHC 34.1 RDW 13.6 Plt Count 172 MPV 9.6 Immature Gran % (Auto) 0.7 H Neut % (Auto) 55.5 Lymph % (Auto) 36.3 [place] % (Auto) 5.7 Eos % (Auto) 1.1 Baso % (Auto) 0.7 Lymph # (Auto) 1.0 L [place] # (Auto) 0.2 Eos # (Auto) 0.0 Baso # (Auto) 0.0 Abs Immat Gran (auto) 0.02 Absolute Neuts (auto) 1.6 L Absolute Nucleated RBC 0.000 Nucleated RBC % (auto) 0.0 Absolute Retic 0.076 Percent Retic 3.4 H Immature Retic Fraction 21.9 H Retic Hgb Equivalent 38.6 H VBG pH VBG pCO2 VBG pO2 VBG HCO3 VBG O2 Saturation VBG Base Excess Sodium 136 Potassium 4.5 Chloride 108 Carbon Dioxide 16 L Anion Gap 17 BUN 53 H Creatinine 2.38 H Estim Creat Clear Calc 28.4 Estimated GFR 27 POC Glucose 179 H Random Glucose 246 H Calcium 8.0 L Magnesium Iron TIBC % Saturation Unsat Iron Binding Total Bilirubin 0.6 Direct Bilirubin 0.3 AST 34 ALT 17 Alkaline Phosphatase 89 Lactate Dehydrogenase 247 Total Creatine Kinase Troponin I High Sens B-Natriuretic Peptide Total Protein 6.6 Albumin 2.6 L Urine Color Urine Appearance Urine pH Ur Specific [place] Urine Protein Urine Glucose (UA) Urine Ketones Urine Blood Urine Nitrite Ur Leukocyte Esterase Urine RBC Urine WBC Ur Squamous Epith Cells Urine Bacteria Hyaline Casts Urine Osmolality Ur Random Sodium Urine Creatinine Stool Occult Blood COVID-19 (JACQUELYN) COVID-19 Yulex Com Blood Type Antibody Screen Crossmatch 06/03/22 13:32 WBC RBC Hgb Hct MCV MCH MCHC RDW Plt Count MPV Immature Gran % (Auto) Neut % (Auto) Lymph % (Auto) [place] % (Auto) Eos % (Auto) Baso % (Auto) Lymph # (Auto) [place] # (Auto) Eos # (Auto) Baso # (Auto) Abs Immat Gran (auto) Absolute Neuts (auto) Absolute Nucleated RBC Nucleated RBC % (auto) Absolute Retic Percent Retic Immature Retic Fraction Retic Hgb Equivalent VBG pH VBG pCO2 VBG pO2 VBG HCO3 VBG O2 Saturation VBG Base Excess Sodium Potassium Chloride Carbon Dioxide Anion Gap BUN Creatinine Estim Creat Clear Calc Estimated GFR POC Glucose 165 H Random Glucose Calcium Magnesium Iron TIBC % Saturation Unsat Iron Binding Total Bilirubin Direct Bilirubin AST ALT Alkaline Phosphatase Lactate Dehydrogenase Total Creatine Kinase Troponin I High Sens B-Natriuretic Peptide Total Protein Albumin Urine Color Urine Appearance Urine pH Ur Specific [place] Urine Protein Urine Glucose (UA) Urine Ketones Urine Blood Urine Nitrite Ur Leukocyte Esterase Urine RBC Urine WBC Ur Squamous Epith Cells Urine Bacteria Hyaline Casts Urine Osmolality Ur Random Sodium Urine Creatinine Stool Occult Blood COVID-19 (JACQUELYN) COVID-19 Clin Com Blood Type Antibody Screen Crossmatch Imaging Radiologist's impression: Impressions Chest X-Ray 06/02/22 20:24 IMPRESSION: 1. Blunted posterior right costophrenic sulcus suspicious for trace right pleural effusion. 2. No airspace consolidation or evidence of pulmonary edema. Progress Note: A&P Assessment and plan (1) Non-rheumatic aortic stenosis: Status: Acute (2) Acute diastolic (congestive) heart failure: Status: Acute Plan 71 male with MSSA bacteremia who has been on IV Abx presenting with acute CHF. He had echo previously while he was in Afib and there was concern for severe . He was seen in office yesterday by Dr Palacios and he was in acute CHF. He was admitted and noted to have ZOILA and anemia. Clinically in CHF due to . Will get repeat echo as in sinus rhythm now. Agree with IV diuretics with close monitoring of BUN and creatinine. Once stable he will need further work up for the aortic stenosis. Would repeat blood cultures on this visit to make sure blood is sterile now. Time Spent With Patient Time: Total time spent is greater than 50% in coordination of care (as documented) at patient's floor/unit and/or counseling patient: Progress Note: Quality Stroke Does the patient have a stroke diagnosis?: No Procedures Date of Service Date of Service: 06/03/22
--- NOTE | 2022-06-03 14:25 | HO.PM.IMPN ---
Subjective Subjective Date of Service: 06/03/22 Interval History: the patient was seen and evaluated this morning Laying in bed, feels improvement since coming to the hospital Hemoglobin dropped to 7.3 this morning, no active bleeding noticed Denies any fever, chills or shortness of breath No reported other overnight events. Systemic review: No fever, chills but reporting generalized weakness No chest pain, palpitation but has edema in lower extremities No shortness of breath or coughing No abdominal pain, nausea or vomiting No urinary symptoms No any rash or wounds Physical Exam Vital Signs: Vital Signs: Last Vital Signs Temp 98 F 06/03/22 13:58 Pulse 68 06/03/22 13:58 Resp 17 06/03/22 13:58 BP 139/58 L 06/03/22 13:58 Pulse Ox 99 06/03/22 08:07 O2 Del Method 06/03/22 08:07 BMI result Body Mass Index 40.8 Const: Other: Constitutional : Alert, oriented, not in distress Neck : Normal inspection, Supple Cardiovascular : RRR, no JVP, +2 bilateral lower extremity edema, diastolic murmur Respiratory : fair bilateral air entry, no crackles, wheezes or rhonchi Gastrointestinal: soft, lax, Normal bowel sounds, Non tender Skin : Warm, Dry Neurological : Alert & oriented x3, No focal deficit Objective Data Active Medications Acetaminophen (Acetaminophen Supp 650 Mg Supp.Rect) 650 mg NE Q6H PRN PRN Reason: Pain, Mild (Pain Scale 1-3) Amlodipine Besylate (Amlodipine Besylate 10 Mg Tablet) 10 mg PO DAILY [facility]; Protocol Last Admin: 06/03/22 08:22 Dose: 10 mg Documented By: RANDA Ascorbic Acid (Ascorbic Acid 500 Mg Tablet) 500 mg PO DAILY [facility] Last Admin: 06/03/22 08:22 Dose: 500 mg Documented By: RANDA Atorvastatin Calcium (Atorvastatin Calcium 20 Mg Tablet) 20 mg PO BEDTIME [facility] Last Admin: 06/02/22 23:25 Dose: 20 mg Documented By: JAMAL Clonidine HCl (Clonidine Hcl 0.1 Mg Tablet) 0.1 mg PO BID [facility]; Protocol Last Admin: 06/03/22 08:22 Dose: 0.1 mg Documented By: RANDA Daptomycin (Daptomycin 500 Mg/10 Ml Vial) 500 mg IV Q24H [facility] Docusate Sodium (Docusate Sodium 100 Mg Capsule) 100 mg PO BID [facility] Last Admin: 06/03/22 08:22 Dose: 100 mg Documented By: RANDA Furosemide (Furosemide 40 Mg/4 Ml Vial) 40 mg IVPUSH Q12H [facility]; Protocol Last Admin: 06/03/22 08:24 Dose: 40 mg Documented By: RANDA Hydromorphone HCl (Hydromorphone Hcl 0.5 Mg/0.5 Ml Syringe) 0.5 mg IVPUSH Q4H PRN; Protocol PRN Reason: Pain, Severe (Pain Scale 7-10) Insulin Human Lispro (Insulin Lispro 100 Unit/Ml 3 Ml Vial) 0 unit SUBCUT QIDACHS [facility]; Protocol Last Admin: 06/03/22 13:49 Dose: Not Given Documented By: RANDA Non-Admin Reason: See Note Lisinopril (Lisinopril 2.5 Mg Tablet) 2.5 mg PO DAILY [facility]; Protocol Last Admin: 06/03/22 08:22 Dose: 2.5 mg Documented By: RANDA Multivitamins/Vitamin C (Multivitamin Tablet) 1 tab PO DAILY [facility] Last Admin: 06/03/22 08:22 Dose: 1 tab Documented By: RANDA Ondansetron HCl (Ondansetron Hcl 4 Mg/2 Ml Vial) 4 mg IVPUSH Q8H PRN PRN Reason: Nausea and Vomiting Oxycodone HCl (Oxycodone Hcl Immed Release 5 Mg Tablet) 5 mg PO Q6H PRN PRN Reason: Pain, Moderate (Pain Scale 4-6 Pantoprazole Sodium (Pantoprazole Sodium 40 Mg/10 Ml Vial) 40 mg IVPUSH BID@0630,1630 [facility] Last Admin: 06/03/22 06:51 Dose: 40 mg Documented By: JAMAL Pharmacy Consult (Consult Rx Perform Med Rec) 1 each MISCELLANE ONCE PRN PRN Reason: Consult order Senna (Sennosides 8.6 Mg Tablet) 17.2 mg PO BEDTIME [facility] Last Admin: 06/02/22 23:26 Dose: 17.2 mg Documented By: JAMAL Sodium Chloride (0.9 % Sodium Chloride Flush 3 Ml Syringe) 3 ml IVFLUSH QSHIFT [facility] Last Admin: 06/03/22 08:28 Dose: 3 ml Documented By: RANDA Tacrolimus (Tacrolimus 1 Mg Capsule) 1 mg PO BID [facility] Last Admin: 06/03/22 08:21 Dose: 1 mg Documented By: RANDA Vitamin D (Cholecalciferol (Vitamin D3) 25 Mcg Tablet) 25 mcg PO DAILY [facility] Last Admin: 06/03/22 08:21 Dose: 25 mcg Documented By: RANDA Labs CBC & Chem 7: 06/03/22 09:24 06/03/22 09:24 Labs: Laboratory Results - last 24 hr 06/02/22 06/02/22 06/02/22 20:01 20:01 20:01 MCV 94.1 MCH 32.5 MCHC 34.5 RDW 13.5 Plt Count 192 MPV 9.5 Immature Gran % (Auto) 0.7 H Neut % (Auto) 44.6 L Lymph % (Auto) 46.3 H [place] % (Auto) 6.7 Eos % (Auto) 1.0 Baso % (Auto) 0.7 Lymph # (Auto) 1.4 [place] # (Auto) 0.2 Eos # (Auto) 0.0 Baso # (Auto) 0.0 Abs Immat Gran (auto) 0.02 Absolute Neuts (auto) 1.3 L Absolute Nucleated RBC 0.000 Nucleated RBC % (auto) 0.0 Absolute Retic Percent Retic Immature Retic Fraction Retic Hgb Equivalent VBG pH VBG pCO2 VBG pO2 VBG HCO3 VBG O2 Saturation VBG Base Excess Anion Gap 16 Estim Creat Clear Calc 24.8 Estimated GFR 23 POC Glucose Random Glucose 201 H Calcium 8.1 L Magnesium 2.2 Iron TIBC % Saturation Unsat Iron Binding Total Bilirubin 0.6 Direct Bilirubin 0.3 AST 31 D ALT 16 Alkaline Phosphatase 104 D Lactate Dehydrogenase Total Creatine Kinase B-Natriuretic Peptide Total Protein 7.1 D Albumin 2.8 L Urine Color Urine Appearance Urine pH Ur Specific [place] Urine Protein Urine Glucose (UA) Urine Ketones Urine Blood Urine Nitrite Ur Leukocyte Esterase Urine RBC Urine WBC Ur Squamous Epith Cells Urine Bacteria Hyaline Casts Urine Osmolality Ur Random Sodium Urine Creatinine Stool Occult Blood COVID-19 (JACQUELYN) Negative COVID-19 Clin Com See Note Blood Type Antibody Screen Crossmatch 06/02/22 06/02/22 06/02/22 20:01 20:01 20:01 MCV MCH MCHC RDW Plt Count MPV Immature Gran % (Auto) Neut % (Auto) Lymph % (Auto) [place] % (Auto) Eos % (Auto) Baso % (Auto) Lymph # (Auto) [place] # (Auto) Eos # (Auto) Baso # (Auto) Abs Immat Gran (auto) Absolute Neuts (auto) Absolute Nucleated RBC Nucleated RBC % (auto) Absolute Retic Percent Retic Immature Retic Fraction Retic Hgb Equivalent VBG pH VBG pCO2 VBG pO2 VBG HCO3 VBG O2 Saturation VBG Base Excess Anion Gap Estim Creat Clear Calc Estimated GFR POC Glucose Random Glucose Calcium Magnesium Iron 36 L TIBC 206 L % Saturation 17 Unsat Iron Binding 170 Total Bilirubin Direct Bilirubin AST ALT Alkaline Phosphatase Lactate Dehydrogenase Total Creatine Kinase 134 B-Natriuretic Peptide 296 H Total Protein Albumin Urine Color Urine Appearance Urine pH Ur Specific [place] Urine Protein Urine Glucose (UA) Urine Ketones Urine Blood Urine Nitrite Ur Leukocyte Esterase Urine RBC Urine WBC Ur Squamous Epith Cells Urine Bacteria Hyaline Casts Urine Osmolality Ur Random Sodium Urine Creatinine Stool Occult Blood COVID-19 (JACQUELYN) COVID-19 [employer] Blood Type Antibody Screen Crossmatch 06/02/22 06/02/22 06/02/22 20:02 20:13 20:19 MCV MCH MCHC RDW Plt Count MPV Immature Gran % (Auto) Neut % (Auto) Lymph % (Auto) [place] % (Auto) Eos % (Auto) Baso % (Auto) Lymph # (Auto) [place] # (Auto) Eos # (Auto) Baso # (Auto) Abs Immat Gran (auto) Absolute Neuts (auto) Absolute Nucleated RBC Nucleated RBC % (auto) Absolute Retic Percent Retic Immature Retic Fraction Retic Hgb Equivalent VBG pH 7.39 VBG pCO2 31 VBG pO2 143 VBG HCO3 19 L VBG O2 Saturation 99.0 VBG Base Excess -5.0 Anion Gap Estim Creat Clear Calc Estimated GFR POC Glucose Random Glucose Calcium Magnesium Iron TIBC % Saturation Unsat Iron Binding Total Bilirubin Direct Bilirubin AST ALT Alkaline Phosphatase Lactate Dehydrogenase Total Creatine Kinase B-Natriuretic Peptide Total Protein Albumin Urine Color Urine Appearance Urine pH Ur Specific [place] Urine Protein Urine Glucose (UA) Urine Ketones Urine Blood Urine Nitrite Ur Leukocyte Esterase Urine RBC Urine WBC Ur Squamous Epith Cells Urine Bacteria Hyaline Casts Urine Osmolality Ur Random Sodium Urine Creatinine Stool Occult Blood POSITIVE COVID-19 (JACQUELYN) COVID-19 [employer] Com Blood Type O Positive Antibody Screen NEGATIVE Crossmatch See Detail 06/03/22 06/03/22 06/03/22 00:29 00:29 00:29 MCV MCH MCHC RDW Plt Count MPV Immature Gran % (Auto) Neut % (Auto) Lymph % (Auto) [place] % (Auto) Eos % (Auto) Baso % (Auto) Lymph # (Auto) [place] # (Auto) Eos # (Auto) Baso # (Auto) Abs Immat Gran (auto) Absolute Neuts (auto) Absolute Nucleated RBC Nucleated RBC % (auto) Absolute Retic Percent Retic Immature Retic Fraction Retic Hgb Equivalent VBG pH VBG pCO2 VBG pO2 VBG HCO3 VBG O2 Saturation VBG Base Excess Anion Gap Estim Creat Clear Calc Estimated GFR POC Glucose Random Glucose Calcium Magnesium Iron TIBC % Saturation Unsat Iron Binding Total Bilirubin Direct Bilirubin AST ALT Alkaline Phosphatase Lactate Dehydrogenase Total Creatine Kinase B-Natriuretic Peptide Total Protein Albumin Urine Color Yellow Urine Appearance Clear Urine pH 5.5 Ur Specific [place] 1.015 Urine Protein Trace Urine Glucose (UA) Negative Urine Ketones Negative Urine Blood Moderate (2+) H Urine Nitrite Negative Ur Leukocyte Esterase Trace H Urine RBC 11-20 H Urine WBC 0-5 Ur Squamous Epith Cells 0-2 Urine Bacteria None Seen Hyaline Casts 0-2 Urine Osmolality 456 Ur Random Sodium 67.0 Urine Creatinine Stool Occult Blood COVID-19 (JACQUELYN) COVID-19 Clin Com Blood Type Antibody Screen Crossmatch 06/03/22 06/03/22 06/03/22 00:29 07:24 09:24 MCV 93.9 MCH 32.0 MCHC 34.1 RDW 13.6 Plt Count 172 MPV 9.6 Immature Gran % (Auto) 0.7 H Neut % (Auto) 55.5 Lymph % (Auto) 36.3 [place] % (Auto) 5.7 Eos % (Auto) 1.1 Baso % (Auto) 0.7 Lymph # (Auto) 1.0 L [place] # (Auto) 0.2 Eos # (Auto) 0.0 Baso # (Auto) 0.0 Abs Immat Gran (auto) 0.02 Absolute Neuts (auto) 1.6 L Absolute Nucleated RBC 0.000 Nucleated RBC % (auto) 0.0 Absolute Retic 0.076 Percent Retic 3.4 H Immature Retic Fraction 21.9 H Retic Hgb Equivalent 38.6 H VBG pH VBG pCO2 VBG pO2 VBG HCO3 VBG O2 Saturation VBG Base Excess Anion Gap Estim Creat Clear Calc Estimated GFR POC Glucose 179 H Random Glucose Calcium Magnesium Iron TIBC % Saturation Unsat Iron Binding Total Bilirubin Direct Bilirubin AST ALT Alkaline Phosphatase Lactate Dehydrogenase Total Creatine Kinase B-Natriuretic Peptide Total Protein Albumin Urine Color Urine Appearance Urine pH Ur Specific [place] Urine Protein Urine Glucose (UA) Urine Ketones Urine Blood Urine Nitrite Ur Leukocyte Esterase Urine RBC Urine WBC Ur Squamous Epith Cells Urine Bacteria Hyaline Casts Urine Osmolality Ur Random Sodium Urine Creatinine 139.37 Stool Occult Blood COVID-19 (JACQUELYN) COVID-19 [employer] Blood Type Antibody Screen Crossmatch 06/03/22 06/03/22 09:24 13:32 MCV MCH MCHC RDW Plt Count MPV Immature Gran % (Auto) Neut % (Auto) Lymph % (Auto) [place] % (Auto) Eos % (Auto) Baso % (Auto) Lymph # (Auto) [place] # (Auto) Eos # (Auto) Baso # (Auto) Abs Immat Gran (auto) Absolute Neuts (auto) Absolute Nucleated RBC Nucleated RBC % (auto) Absolute Retic Percent Retic Immature Retic Fraction Retic Hgb Equivalent VBG pH VBG pCO2 VBG pO2 VBG HCO3 VBG O2 Saturation VBG Base Excess Anion Gap 17 Estim Creat Clear Calc 28.4 Estimated GFR 27 POC Glucose 165 H Random Glucose 246 H Calcium 8.0 L Magnesium Iron TIBC % Saturation Unsat Iron Binding Total Bilirubin 0.6 Direct Bilirubin 0.3 AST 34 ALT 17 Alkaline Phosphatase 89 Lactate Dehydrogenase 247 Total Creatine Kinase B-Natriuretic Peptide Total Protein 6.6 Albumin 2.6 L Urine Color Urine Appearance Urine pH Ur Specific [place] Urine Protein Urine Glucose (UA) Urine Ketones Urine Blood Urine Nitrite Ur Leukocyte Esterase Urine RBC Urine WBC Ur Squamous Epith Cells Urine Bacteria Hyaline Casts Urine Osmolality Ur Random Sodium Urine Creatinine Stool Occult Blood COVID-19 (JACQUELYN) COVID-19 [employer] Com Blood Type Antibody Screen Crossmatch Assessment and Plan (1) Gastrointestinal bleed: Status: Acute (2) ZOILA (acute kidney injury): Status: Acute (3) Acute diastolic (congestive) heart failure: Status: Acute (4) Acute blood loss anemia: Status: Acute Plan 71 year old pt history significant for non-alcoholic cirrhosis s/p liver transplant 5 years ago on tacrolimas, noninsulin dependent type 2 diabetes, hld, osteomyelitis spine with recent admission 05/22-05/25 for osteomyelitis of the spine with bacteremia with PICC in place for IV daptomycin with echo at that time showing severe aortic stenosis and new atrial fibrillation started on eliquis being admitted for acute CHF exacerbation, ZOILA, and acute blood loss anemia. 1-Acute new onset diastolic heart failure Last echo 05/22 with hyperdynamic LV systolic function with EF >70%. Diastolic fx indeterminate at that time. Widely variable valvular gradients d/t new afib with possible severe AV IV lasix 40mg BID Echo pending Cardiology input appreciated, repeat echo in assess for once medically stable Cardiac diet Salas catheter with strict I&O Daily weights 2-ZOILA likely cardiorenal, dehydration,acute interstitial nephritis. Check tacrolimus level No peripheral eosinophilia Creatinine improved to 2.38 (baseline 1.38 at discharge) and BUN 53 (baseline 21 on discharge) Nephrology consult and Follow BMP 3-Acute blood loss anemia Hemoglobin dropped to 7.3 with heme positive stool in ED Recent EGD 05/22 showed chronic ulcers without active bleeding. Started on omeprazole. ASA stopped Hold eliquis Check hemolysis profile To give a unit of blood IV pantoprazole BID Follow H&H GI input appreciated, to repeat EGD 4-Paroxysmal atrial fibrillation diagnosed on 05/22 last admission. In sinus rhythm now Hold eliquis Following with Dr. Christiansen. Plan for 7 day holter outpt Cardiology input appreciated, repeat blood cultures and treated for CHF 5-Noninsulin dependent type 2 diabetes Diabetic diet Hold PO home meds Humalog SSI 6-H/o cirrhosis s/p liver transplant Liver enzymes stable Continue tacrolimus, check level 7-MSSA bacteremia 2/2 Acute osteomyelitis diagnosed recent admission, seen and evaluated by ID day (done 06/30) Continue daptomycin via PICC line Oxycodone and dilaudid per pain scale Id input appreciated 8-HTN controlled Continue home meds, lasix changed to iv DVT prophylaxis- mechanical. Hold eliquis d/t probable gi bleed Full code Patient will need overnight hospital stay for treatment of acute diastolic HF exacerbation with ZOILA requiring IV diuresis as well as probable GI bleed needing transfusion and ongoing monitoring to prevent further cardiac decompensation and reduce risk of ACS. Quality Stroke Does the patient have a stroke diagnosis?: No VTE Prior VTE?: No VTE Risk Level:: Medical - moderate - high VTE Device Contraindication: N/A - Device Ordered VTE Drug Contraindication: Treatment Not Tolerated
--- NOTE | 2022-06-03 15:32 | PC.NURSE ---
assumed care of pt at 1500, pt sleeping, blood transfusing, vss, pt on clear liquid diet until midnight - changes to NPO. recheck cbc due @ 1800.
[2022-06-03 17:13] LABS: Glucose, Whole Blood 161 mg/dL (60-115)
--- NOTE | 2022-06-03 17:16 | PC.NURSE ---
pt a&ox3, vss, medicated per provider order, insulin held, pt NPO today and starting again at midnight, denies any pain at this time, transfusion complete.
[2022-06-03 18:14] LABS: Hematocrit 27.1 % (42.0-52.0); Hemoglobin 9.3 g/dl (14.0-18.0); Mean Corpuscular HGB Conc 34.3 g/dl (31.0-36.0); Mean Corpuscular Hemoglobin 31.6 pg (27.0-33.0); Mean Corpuscular Volume 92.2 fL (80.0-98.0); Mean Platelet Volume 9.4 fL (9.4-12.4); Platelet Count 183 X10*3/uL (160-400); Red Blood Count 2.94 X10*6/uL (4.60-5.80); Red Cell Distribution Width 14.3 % (11.0-16.0)
--- NOTE | 2022-06-03 18:32 | PC.NURSE ---
RN-RN report given.
[2022-06-03 20:23] LABS: Glucose, Whole Blood 217 mg/dL (60-115)
[2022-06-03] MEDS: DAPTOmycin 500 MG in 0.9 % Sodium Chloride 50 ML 120 MG IV (22:32)
[2022-06-03] MEDS: Atorvastatin Calcium 20 MG TABLET PO (22:33)
[2022-06-03] MEDS: Sennosides 8.6 MG TABLET 17.2 MG PO (22:33)
[2022-06-04] VITALS (10 sets, daily range): BP systolic 123–157; BP diastolic 49–89; PULSE 62–96; RESP 16–20; TEMP 36.1–37.1; O2SAT 94–99
[2022-06-04] MEDS: 0.9 % Sodium Chloride Flush 3 ML SYRINGE IVFLUSH ×3 (02:40→17:39)
[2022-06-04] MEDS: Pantoprazole Sodium 40 MG/10 ML VIAL IVPUSH ×2 (05:11→17:34)
[2022-06-04 06:44] LABS: Glucose, Whole Blood 161 mg/dL (60-115)
[2022-06-04 06:53] LABS: Hematocrit 24.1 % (42.0-52.0); Hemoglobin 8.3 g/dl (14.0-18.0); Mean Corpuscular HGB Conc 34.4 g/dl (31.0-36.0); Mean Corpuscular Hemoglobin 31.6 pg (27.0-33.0); Mean Corpuscular Volume 91.6 fL (80.0-98.0); Mean Platelet Volume 9.1 fL (9.4-12.4); Platelet Count 161 X10*3/uL (160-400); Red Blood Count 2.63 X10*6/uL (4.60-5.80); Red Cell Distribution Width 14.6 % (11.0-16.0); White Blood Count 2.7 X10*3/uL (4.8-10.8)
[2022-06-04 07:11] LABS: Anion Gap 14 (12-20); Blood Urea Nitrogen 50 mg/dL (9-16); Calcium 8.3 mg/dL (8.4-10.2); Carbon Dioxide 22 mmol/L (22-29); Chloride 107 mmol/L (96-108); Creatinine Clr Calc Pharmacy 29.1; Estimated Glomerular Filt Rate 27; Glucose Random 186 mg/dL (60-115); Potassium 4.5 mmol/L (3.3-5.1); Sodium 138 mmol/L (135-145)
[2022-06-04 07:17] LABS: B Type Natriuretic Peptide 419 pg/mL (<100)
[2022-06-04] MEDS: Furosemide 40 MG/4 ML VIAL 60 MG IVPUSH ×2 (09:12→20:46)
[2022-06-04] MEDS: Cholecalciferol (Vitamin D3) 25 MCG TABLET PO (09:12)
[2022-06-04] MEDS: cloNIDine HCL 0.1 MG TABLET PO ×2 (09:12→20:46)
[2022-06-04] MEDS: Tacrolimus 1 MG CAPSULE PO ×2 (09:12→20:46)
[2022-06-04] MEDS: amLODIPine Besylate 10 MG TABLET PO (09:13)
[2022-06-04] MEDS: Docusate Sodium 100 MG CAPSULE PO (09:13)
[2022-06-04] MEDS: Multivitamin TABLET 1 TAB PO (09:13)
[2022-06-04 11:23] LABS: Glucose, Whole Blood 172 mg/dL (60-115)
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
--- NOTE | 2022-06-04 12:37 | PC.NURSE ---
R PICC unable to aspirate or flush, dressing soiled in dry blood. Floor RN & provider aware. L peripheral 22g inserted.
--- NOTE | 2022-06-04 12:37 | MHC.SHP ---
Pre-Procedural Eval Section A Date of Service: 06/04/22 The patient is an INPATIENT: Yes The History & Physical has been completed within 30 days and I have reviewed it.: Yes Section B Chief Complaint: CHF, anemia Allergies: Allergies Allergy/AdvReac Type Severity Reaction Status Date / Time ibuprofen [IBUPROFEN] Allergy Severe SWELLING Verified 06/02/22 14:39 peanut [PEANUTS] Allergy Unknown SWELLING Verified 06/02/22 14:39 Plan I have reviewed the history and physical and performed a pertinent physical examination on my patient. No changes have occurred unless specified. Discussed with Dr Colon, intermediate risk. Will proceed as risk of further bleeding and severe anemia could also drop pressure across the aortic valve and lead to adverse cardiac outcomes. Hopefully we can locate a target for treatment to prevent further blood loss anemia.
--- NOTE | 2022-06-04 12:44 | HO.ANESPROP2 ---
[facility] Active Problems Active Problems: All Active Problems (Updated 06/03/22 @ 11:42 by Shari Chapin MD) Duodenal ulcer (Acute) Anemia (Acute) Duodenitis (Acute) Osteomyelitis (Acute) PAF (paroxysmal atrial fibrillation) (Acute) Non-rheumatic aortic stenosis (Acute) Acute diastolic (congestive) heart failure (Acute) Acute blood loss anemia (Acute) ZOILA (acute kidney injury) (Acute) Liver transplant recipient (Acute) Gastrointestinal bleed (Acute) Abnormal CT scan, gastrointestinal tract (Acute) Past Medical History Medical History Acute diastolic (congestive) heart failure Aortic stenosis Diabetes Duodenitis Fatty liver GERD (gastroesophageal reflux disease) Gram-positive bacteremia Hypercholesteremia Hypertension Non-rheumatic aortic stenosis Osteomyelitis PAF (paroxysmal atrial fibrillation) Family History Family History Mother Myocardial infarct Family history of problems with anesthesia: No Surgical History Surgical History History of back surgery Hx of colonoscopy Hx of lymph node excision Liver transplant recipient History of Problems with Anesthesia: No Social History Social History Household Members: Spouse and Children Housing: House Do you presently have visiting nurse or other home services: Yes (picc line antibiotics) Patient Tobacco Use Status: Never used Tobacco Advance Directives Date on File: 05/19/22 service: No Current occupational status: retired Meds Allergies Allergy/AdvReac Type Severity Reaction Status Date / Time ibuprofen [IBUPROFEN] Allergy Severe SWELLING Verified 06/02/22 14:39 peanut [PEANUTS] Allergy Unknown SWELLING Verified 06/02/22 14:39 Active Medications: Current Medications Acetaminophen (Acetaminophen Supp 650 Mg Supp.Rect) 650 mg CA Q6H PRN PRN Reason: Pain, Mild (Pain Scale 1-3) Amlodipine Besylate (Amlodipine Besylate 10 Mg Tablet) 10 mg PO DAILY PATRICIA; Protocol Last Admin: 06/04/22 09:13 Dose: 10 mg Atorvastatin Calcium (Atorvastatin Calcium 20 Mg Tablet) 20 mg PO BEDTIME PATRICIA Last Admin: 06/03/22 22:33 Dose: 20 mg Clonidine HCl (Clonidine Hcl 0.1 Mg Tablet) 0.1 mg PO BID [facility]; Protocol Last Admin: 06/04/22 09:12 Dose: 0.1 mg Docusate Sodium (Docusate Sodium 100 Mg Capsule) 100 mg PO BID [facility] Last Admin: 06/04/22 09:13 Dose: 100 mg Furosemide (Furosemide 40 Mg/4 Ml Vial) 60 mg IVPUSH Q12H [facility]; Protocol Last Admin: 06/04/22 09:12 Dose: 60 mg Hydromorphone HCl (Hydromorphone Hcl 0.5 Mg/0.5 Ml Syringe) 0.5 mg IVPUSH Q4H PRN; Protocol PRN Reason: Pain, Severe (Pain Scale 7-10) Daptomycin 500 mg/ Sodium (Chloride) 60 mls @ 120 mls/hr IV Q24H [facility] Last Infusion: 06/03/22 23:07 Dose: Infused Insulin Human Lispro (Insulin Lispro 100 Unit/Ml 3 Ml Vial) 0 unit SUBCUT QIDACHS [facility]; Protocol Last Admin: 06/04/22 11:30 Dose: Not Given Multivitamins/Vitamin C (Multivitamin Tablet) 1 tab PO DAILY [facility] Last Admin: 06/04/22 09:13 Dose: 1 tab Ondansetron HCl (Ondansetron Hcl 4 Mg/2 Ml Vial) 4 mg IVPUSH Q8H PRN PRN Reason: Nausea and Vomiting Oxycodone HCl (Oxycodone Hcl Immed Release 5 Mg Tablet) 5 mg PO Q6H PRN PRN Reason: Pain, Moderate (Pain Scale 4-6 Pantoprazole Sodium (Pantoprazole Sodium 40 Mg/10 Ml Vial) 40 mg IVPUSH BID@0630,1630 [facility] Last Admin: 06/04/22 05:11 Dose: 40 mg Pharmacy Consult (Consult Rx Perform Med Rec) 1 each MISCELLANE ONCE PRN PRN Reason: Consult order Senna (Sennosides 8.6 Mg Tablet) 17.2 mg PO BEDTIME [facility] Last Admin: 06/03/22 22:33 Dose: 17.2 mg Sodium Chloride (0.9 % Sodium Chloride Flush 3 Ml Syringe) 3 ml IVFLUSH QSHIFT [facility] Last Admin: 06/04/22 09:11 Dose: 3 ml Tacrolimus (Tacrolimus 1 Mg Capsule) 1 mg PO BID [facility] Last Admin: 06/04/22 09:12 Dose: 1 mg Vitamin D (Cholecalciferol (Vitamin D3) 25 Mcg Tablet) 25 mcg PO DAILY PATRICIA Last Admin: 06/04/22 09:12 Dose: 25 mcg Home Medications Medication Instructions Recorded Confirmed Last Taken Type ascorbic acid (vitamin C) 500 mg 500 mg PO DAILY 05/19/22 06/02/22 06/02/22 History tablet (Vitamin C) cholecalciferol (vitamin D3) 25 25 mcg PO DAILY 05/19/22 06/02/22 06/02/22 History mcg (1,000 unit) tablet (Vitamin D3) docusate sodium 100 mg capsule 100 mg PO BID 05/19/22 06/02/22 06/02/22 History (Colace) multivitamin 1 tab PO DAILY 05/19/22 06/02/22 06/02/22 History sennosides 8.6 mg tablet (senna) 17.2 mg PO BEDTIME 05/19/22 06/02/22 06/01/22 History amlodipine 10 mg tablet 10 mg PO DAILY 06/02/22 06/02/22 06/02/22 History atorvastatin 20 mg tablet 20 mg PO BEDTIME 06/02/22 06/02/22 06/01/22 History clonidine HCl 0.1 mg tablet 0.1 mg PO BID 06/02/22 06/02/22 06/02/22 History lisinopril 2.5 mg tablet 2.5 mg PO DAILY 06/02/22 06/02/22 06/02/22 History repaglinide 0.5 mg tablet 0.5 mg PO TIDAC 06/02/22 06/02/22 06/02/22 History sitagliptin 50 mg tablet (Januvia) 50 mg PO DAILY 06/02/22 06/02/22 06/02/22 History tacrolimus 1 mg capsule, 1 mg PO BID 06/02/22 06/02/22 06/02/22 History immediate-release Exam Exam Date and Time: June 04, 2022 124 Height,Weight and Vital Signs: Height 5 ft 1 in Weight 101.5 kg Last Vital Signs Temp 98.1 F 06/04/22 12:08 Pulse 71 06/04/22 12:08 Resp 16 06/04/22 12:08 BP 125/89 06/04/22 12:08 Pulse Ox 98 06/04/22 12:08 O2 Del Method 09/08/22 12:08 Pertinent Lab Results Pertinent Lab Results: Laboratory Tests 06/02/22 06/02/22 06/02/22 20:01 20:01 20:01 WBC 3.0 L RBC 2.37 L Hgb 7.7 L Hct 22.3 L MCV 94.1 MCH 32.5 MCHC 34.5 RDW 13.5 Plt Count 192 MPV 9.5 Immature Gran % (Auto) 0.7 H Neut % (Auto) 44.6 L Lymph % (Auto) 46.3 H Centre % (Auto) 6.7 Eos % (Auto) 1.0 Baso % (Auto) 0.7 Lymph # (Auto) 1.4 Centre # (Auto) 0.2 Eos # (Auto) 0.0 Baso # (Auto) 0.0 Abs Immat Gran (auto) 0.02 Absolute Neuts (auto) 1.3 L Absolute Nucleated RBC 0.000 Nucleated RBC % (auto) 0.0 Absolute Retic Percent Retic Immature Retic Fraction Retic Hgb Equivalent VBG pH VBG pCO2 VBG pO2 VBG HCO3 VBG O2 Saturation VBG Base Excess Sodium 139 Potassium 4.5 Chloride 109 H Carbon Dioxide 19 L Anion Gap 16 BUN 60 H Creatinine 2.72 H Estim Creat Clear Calc 24.8 Estimated GFR 23 POC Glucose Random Glucose 201 H Calcium 8.1 L Magnesium 2.2 Iron TIBC % Saturation Unsat Iron Binding Total Bilirubin 0.6 Direct Bilirubin 0.3 AST 31 D ALT 16 Alkaline Phosphatase 104 D Lactate Dehydrogenase Total Creatine Kinase Troponin I High Sens B-Natriuretic Peptide Total Protein 7.1 D Albumin 2.8 L Urine Color Urine Appearance Urine pH Ur Specific [place] Urine Protein Urine Glucose (UA) Urine Ketones Urine Blood Urine Nitrite Ur Leukocyte Esterase Urine RBC Urine WBC Ur Squamous Epith Cells Urine Bacteria Hyaline Casts Urine Osmolality Ur Random Sodium Urine Creatinine Stool Occult Blood COVID-19 (JACQUELYN) Negative COVID-19 Clin Com See Note Blood Type Antibody Screen Crossmatch 06/02/22 06/02/22 06/02/22 20:01 20:01 20:01 WBC RBC Hgb Hct MCV MCH MCHC RDW Plt Count MPV Immature Gran % (Auto) Neut % (Auto) Lymph % (Auto) Centre % (Auto) Eos % (Auto) Baso % (Auto) Lymph # (Auto) Centre # (Auto) Eos # (Auto) Baso # (Auto) Abs Immat Gran (auto) Absolute Neuts (auto) Absolute Nucleated RBC Nucleated RBC % (auto) Absolute Retic Percent Retic Immature Retic Fraction Retic Hgb Equivalent VBG pH VBG pCO2 VBG pO2 VBG HCO3 VBG O2 Saturation VBG Base Excess Sodium Potassium Chloride Carbon Dioxide Anion Gap BUN Creatinine Estim Creat Clear Calc Estimated GFR POC Glucose Random Glucose Calcium Magnesium Iron 36 L TIBC 206 L % Saturation 17 Unsat Iron Binding 170 Total Bilirubin Direct Bilirubin AST ALT Alkaline Phosphatase Lactate Dehydrogenase Total Creatine Kinase 134 Troponin I High Sens B-Natriuretic Peptide 296 H Total Protein Albumin Urine Color Urine Appearance Urine pH Ur Specific [place] Urine Protein Urine Glucose (UA) Urine Ketones Urine Blood Urine Nitrite Ur Leukocyte Esterase Urine RBC Urine WBC Ur Squamous Epith Cells Urine Bacteria Hyaline Casts Urine Osmolality Ur Random Sodium Urine Creatinine Stool Occult Blood COVID-19 (JACQUELYN) COVID-19 Clin Com Blood Type Antibody Screen Crossmatch 06/02/22 06/02/22 06/02/22 20:02 20:13 20:19 WBC RBC Hgb Hct MCV MCH MCHC RDW Plt Count MPV Immature Gran % (Auto) Neut % (Auto) Lymph % (Auto) Centre % (Auto) Eos % (Auto) Baso % (Auto) Lymph # (Auto) Centre # (Auto) Eos # (Auto) Baso # (Auto) Abs Immat Gran (auto) Absolute Neuts (auto) Absolute Nucleated RBC Nucleated RBC % (auto) Absolute Retic Percent Retic Immature Retic Fraction Retic Hgb Equivalent VBG pH 7.39 VBG pCO2 31 VBG pO2 143 VBG HCO3 19 L VBG O2 Saturation 99.0 VBG Base Excess -5.0 Sodium Potassium Chloride Carbon Dioxide Anion Gap BUN Creatinine Estim Creat Clear Calc Estimated GFR POC Glucose Random Glucose Calcium Magnesium Iron TIBC % Saturation Unsat Iron Binding Total Bilirubin Direct Bilirubin AST ALT Alkaline Phosphatase Lactate Dehydrogenase Total Creatine Kinase Troponin I High Sens B-Natriuretic Peptide Total Protein Albumin Urine Color Urine Appearance Urine pH Ur Specific [place] Urine Protein Urine Glucose (UA) Urine Ketones Urine Blood Urine Nitrite Ur Leukocyte Esterase Urine RBC Urine WBC Ur Squamous Epith Cells Urine Bacteria Hyaline Casts Urine Osmolality Ur Random Sodium Urine Creatinine Stool Occult Blood POSITIVE COVID-19 (JACQUELYN) COVID-19 Clin Com Blood Type O Positive Antibody Screen NEGATIVE Crossmatch See Detail 06/02/22 06/02/22 06/03/22 23:21 23:21 00:29 WBC RBC Hgb Hct MCV MCH MCHC RDW Plt Count MPV Immature Gran % (Auto) Neut % (Auto) Lymph % (Auto) Centre % (Auto) Eos % (Auto) Baso % (Auto) Lymph # (Auto) Centre # (Auto) Eos # (Auto) Baso # (Auto) Abs Immat Gran (auto) Absolute Neuts (auto) Absolute Nucleated RBC Nucleated RBC % (auto) Absolute Retic Percent Retic Immature Retic Fraction Retic Hgb Equivalent VBG pH VBG pCO2 VBG pO2 VBG HCO3 VBG O2 Saturation VBG Base Excess Sodium Potassium Chloride Carbon Dioxide Anion Gap BUN Creatinine Estim Creat Clear Calc Estimated GFR POC Glucose Random Glucose Calcium Magnesium Iron TIBC % Saturation Unsat Iron Binding Total Bilirubin Direct Bilirubin AST ALT Alkaline Phosphatase Lactate Dehydrogenase Total Creatine Kinase Troponin I High Sens 9.3 10.5 B-Natriuretic Peptide Total Protein Albumin Urine Color Yellow Urine Appearance Clear Urine pH 5.5 Ur Specific [place] 1.015 Urine Protein Trace Urine Glucose (UA) Negative Urine Ketones Negative Urine Blood Moderate (2+) H Urine Nitrite Negative Ur Leukocyte Esterase Trace H Urine RBC 11-20 H Urine WBC 0-5 Ur Squamous Epith Cells 0-2 Urine Bacteria None Seen Hyaline Casts 0-2 Urine Osmolality Ur Random Sodium Urine Creatinine Stool Occult Blood COVID-19 (JACQUELYN) COVID-19 Clin Com Blood Type Antibody Screen Crossmatch 06/03/22 06/03/22 06/03/22 00:29 00:29 00:29 WBC RBC Hgb Hct MCV MCH MCHC RDW Plt Count MPV Immature Gran % (Auto) Neut % (Auto) Lymph % (Auto) Centre % (Auto) Eos % (Auto) Baso % (Auto) Lymph # (Auto) Centre # (Auto) Eos # (Auto) Baso # (Auto) Abs Immat Gran (auto) Absolute Neuts (auto) Absolute Nucleated RBC Nucleated RBC % (auto) Absolute Retic Percent Retic Immature Retic Fraction Retic Hgb Equivalent VBG pH VBG pCO2 VBG pO2 VBG HCO3 VBG O2 Saturation VBG Base Excess Sodium Potassium Chloride Carbon Dioxide Anion Gap BUN Creatinine Estim Creat Clear Calc Estimated GFR POC Glucose Random Glucose Calcium Magnesium Iron TIBC % Saturation Unsat Iron Binding Total Bilirubin Direct Bilirubin AST ALT Alkaline Phosphatase Lactate Dehydrogenase Total Creatine Kinase Troponin I High Sens B-Natriuretic Peptide Total Protein Albumin Urine Color Urine Appearance Urine pH Ur Specific [place] Urine Protein Urine Glucose (UA) Urine Ketones Urine Blood Urine Nitrite Ur Leukocyte Esterase Urine RBC Urine WBC Ur Squamous Epith Cells Urine Bacteria Hyaline Casts Urine Osmolality 456 Ur Random Sodium 67.0 Urine Creatinine 139.37 Stool Occult Blood COVID-19 (JACQUELYN) COVID-19 Clin Com Blood Type Antibody Screen Crossmatch 06/03/22 06/03/22 06/03/22 07:24 09:24 09:24 WBC 2.8 L RBC 2.28 L Hgb 7.3 L Hct 21.4 L MCV 93.9 MCH 32.0 MCHC 34.1 RDW 13.6 Plt Count 172 MPV 9.6 Immature Gran % (Auto) 0.7 H Neut % (Auto) 55.5 Lymph % (Auto) 36.3 Centre % (Auto) 5.7 Eos % (Auto) 1.1 Baso % (Auto) 0.7 Lymph # (Auto) 1.0 L Centre # (Auto) 0.2 Eos # (Auto) 0.0 Baso # (Auto) 0.0 Abs Immat Gran (auto) 0.02 Absolute Neuts (auto) 1.6 L Absolute Nucleated RBC 0.000 Nucleated RBC % (auto) 0.0 Absolute Retic 0.076 Percent Retic 3.4 H Immature Retic Fraction 21.9 H Retic Hgb Equivalent 38.6 H VBG pH VBG pCO2 VBG pO2 VBG HCO3 VBG O2 Saturation VBG Base Excess Sodium 136 Potassium 4.5 Chloride 108 Carbon Dioxide 16 L Anion Gap 17 BUN 53 H Creatinine 2.38 H Estim Creat Clear Calc 28.4 Estimated GFR 27 POC Glucose 179 H Random Glucose 246 H Calcium 8.0 L Magnesium Iron TIBC % Saturation Unsat Iron Binding Total Bilirubin 0.6 Direct Bilirubin 0.3 AST 34 ALT 17 Alkaline Phosphatase 89 Lactate Dehydrogenase 247 Total Creatine Kinase Troponin I High Sens B-Natriuretic Peptide Total Protein 6.6 Albumin 2.6 L Urine Color Urine Appearance Urine pH Ur Specific [place] Urine Protein Urine Glucose (UA) Urine Ketones Urine Blood Urine Nitrite Ur Leukocyte Esterase Urine RBC Urine WBC Ur Squamous Epith Cells Urine Bacteria Hyaline Casts Urine Osmolality Ur Random Sodium Urine Creatinine Stool Occult Blood COVID-19 (JACQUELYN) COVID-19 Clin Com Blood Type Antibody Screen Crossmatch 06/03/22 06/03/22 06/03/22 13:32 17:03 18:01 WBC 3.0 L RBC 2.94 L D Hgb 9.3 L D Hct 27.1 L D MCV 92.2 MCH 31.6 MCHC 34.3 RDW 14.3 Plt Count 183 MPV 9.4 Immature Gran % (Auto) Neut % (Auto) Lymph % (Auto) Centre % (Auto) Eos % (Auto) Baso % (Auto) Lymph # (Auto) Centre # (Auto) Eos # (Auto) Baso # (Auto) Abs Immat Gran (auto) Absolute Neuts (auto) Absolute Nucleated RBC 0.000 Nucleated RBC % (auto) 0.0 Absolute Retic Percent Retic Immature Retic Fraction Retic Hgb Equivalent VBG pH VBG pCO2 VBG pO2 VBG HCO3 VBG O2 Saturation VBG Base Excess Sodium Potassium Chloride Carbon Dioxide Anion Gap BUN Creatinine Estim Creat Clear Calc Estimated GFR POC Glucose 165 H 161 H Random Glucose Calcium Magnesium Iron TIBC % Saturation Unsat Iron Binding Total Bilirubin Direct Bilirubin AST ALT Alkaline Phosphatase Lactate Dehydrogenase Total Creatine Kinase Troponin I High Sens B-Natriuretic Peptide Total Protein Albumin Urine Color Urine Appearance Urine pH Ur Specific [place] Urine Protein Urine Glucose (UA) Urine Ketones Urine Blood Urine Nitrite Ur Leukocyte Esterase Urine RBC Urine WBC Ur Squamous Epith Cells Urine Bacteria Hyaline Casts Urine Osmolality Ur Random Sodium Urine Creatinine Stool Occult Blood COVID-19 (JACQUELYN) COVID-19 Clin Com Blood Type Antibody Screen Crossmatch 06/03/22 06/04/22 06/04/22 20:10 06:36 06:39 WBC 2.7 L RBC 2.63 L Hgb 8.3 L Hct 24.1 L MCV 91.6 MCH 31.6 MCHC 34.4 RDW 14.6 Plt Count 161 MPV 9.1 L Immature Gran % (Auto) Neut % (Auto) Lymph % (Auto) Centre % (Auto) Eos % (Auto) Baso % (Auto) Lymph # (Auto) Centre # (Auto) Eos # (Auto) Baso # (Auto) Abs Immat Gran (auto) Absolute Neuts (auto) Absolute Nucleated RBC 0.000 Nucleated RBC % (auto) 0.0 Absolute Retic Percent Retic Immature Retic Fraction Retic Hgb Equivalent VBG pH VBG pCO2 VBG pO2 VBG HCO3 VBG O2 Saturation VBG Base Excess Sodium Potassium Chloride Carbon Dioxide Anion Gap BUN Creatinine Estim Creat Clear Calc Estimated GFR POC Glucose 217 H 161 H Random Glucose Calcium Magnesium Iron TIBC % Saturation Unsat Iron Binding Total Bilirubin Direct Bilirubin AST ALT Alkaline Phosphatase Lactate Dehydrogenase Total Creatine Kinase Troponin I High Sens B-Natriuretic Peptide Total Protein Albumin Urine Color Urine Appearance Urine pH Ur Specific [place] Urine Protein Urine Glucose (UA) Urine Ketones Urine Blood Urine Nitrite Ur Leukocyte Esterase Urine RBC Urine WBC Ur Squamous Epith Cells Urine Bacteria Hyaline Casts Urine Osmolality Ur Random Sodium Urine Creatinine Stool Occult Blood COVID-19 (JACQUELYN) COVID-19 Quantason Com Blood Type Antibody Screen Crossmatch 06/04/22 06/04/22 06/04/22 06:39 06:39 11:13 WBC RBC Hgb Hct MCV MCH MCHC RDW Plt Count MPV Immature Gran % (Auto) Neut % (Auto) Lymph % (Auto) Centre % (Auto) Eos % (Auto) Baso % (Auto) Lymph # (Auto) Centre # (Auto) Eos # (Auto) Baso # (Auto) Abs Immat Gran (auto) Absolute Neuts (auto) Absolute Nucleated RBC Nucleated RBC % (auto) Absolute Retic Percent Retic Immature Retic Fraction Retic Hgb Equivalent VBG pH VBG pCO2 VBG pO2 VBG HCO3 VBG O2 Saturation VBG Base Excess Sodium 138 Potassium 4.5 Chloride 107 Carbon Dioxide 22 Anion Gap 14 BUN 50 H Creatinine 2.37 H Estim Creat Clear Calc 29.1 Estimated GFR 27 POC Glucose 172 H Random Glucose 186 H Calcium 8.3 L Magnesium Iron TIBC % Saturation Unsat Iron Binding Total Bilirubin Direct Bilirubin AST ALT Alkaline Phosphatase Lactate Dehydrogenase Total Creatine Kinase 341 H D Troponin I High Sens B-Natriuretic Peptide 419 H Total Protein Albumin Urine Color Urine Appearance Urine pH Ur Specific [place] Urine Protein Urine Glucose (UA) Urine Ketones Urine Blood Urine Nitrite Ur Leukocyte Esterase Urine RBC Urine WBC Ur Squamous Epith Cells Urine Bacteria Hyaline Casts Urine Osmolality Ur Random Sodium Urine Creatinine Stool Occult Blood COVID-19 (JACQUELYN) COVID-19 Clin Com Blood Type Antibody Screen Crossmatch Airway Mallampati Class: III TM Dist: >3cm Neck ROM: Full Loose/Missing/Broken Teeth: Yes and Lower Heart: rrr 4/6 RAYNA Lungs: clear Assessment and Plan Final Anesthetic Review Family History of Problems with Anesthesia: No History of Problems with Anesthesia: No NPO: Yes ASA Class: IV and Emergency Final Preanesthetic Review: No Changes in Pt Med Stat, Meds/Allgs Chart Reviewed, Consent Obtained/Reviewed and Anes Risks/Benef Reviewed Patient Risk: High Procedure Risk: Low Anesthetic Plan Anesthetic Plan: MAC: Disposition: Standard PACU
--- NOTE | 2022-06-04 12:57 | P.PNIM_ITS ---
Subjective Subjective Date of Service: 06/04/22 Interval History: the patient was seen and evaluated this morning Laying in bed, feels improvement since coming to the hospital Improved to 8.3, noticed fresh blood with the stool this morning Denies any fever, chills or shortness of breath No reported other overnight events. Systemic review: No fever, chills but reporting generalized weakness No chest pain, palpitation but has edema in lower extremities No shortness of breath or coughing No abdominal pain, nausea or vomiting No urinary symptoms No any rash or wounds Physical Exam Vital Signs: Vital Signs: Last Vital Signs Temp 98.1 F 06/04/22 12:08 Pulse 71 06/04/22 12:08 Resp 16 06/04/22 12:08 BP 125/89 06/04/22 12:08 Pulse Ox 98 06/04/22 12:08 O2 Del Method 06/04/22 12:08 BMI result Body Mass Index 42.3 Const: Other: Constitutional : Alert, oriented, not in distress Neck : Normal inspection, Supple Cardiovascular : RRR, no JVP, trace bilateral lower extremity edema, diastolic murmur Respiratory : fair bilateral air entry, no crackles, wheezes or rhonchi Gastrointestinal: soft, lax, Normal bowel sounds, Non tender Skin : Warm, Dry Neurological : Alert & oriented x3, No focal deficit Objective Data Active Medications Acetaminophen (Acetaminophen Supp 650 Mg Supp.Rect) 650 mg LA Q6H PRN PRN Reason: Pain, Mild (Pain Scale 1-3) Amlodipine Besylate (Amlodipine Besylate 10 Mg Tablet) 10 mg PO DAILY [facility]; Protocol Last Admin: 06/04/22 09:13 Dose: 10 mg Documented By: MARILOU Atorvastatin Calcium (Atorvastatin Calcium 20 Mg Tablet) 20 mg PO BEDTIME [facility] Last Admin: 06/03/22 22:33 Dose: 20 mg Documented By: ASHLYN Clonidine HCl (Clonidine Hcl 0.1 Mg Tablet) 0.1 mg PO BID [facility]; Protocol Last Admin: 06/04/22 09:12 Dose: 0.1 mg Documented By: MARILOU Docusate Sodium (Docusate Sodium 100 Mg Capsule) 100 mg PO BID [facility] Last Admin: 06/04/22 09:13 Dose: 100 mg Documented By: MARILOU Furosemide (Furosemide 40 Mg/4 Ml Vial) 60 mg IVPUSH Q12H [facility]; Protocol Last Admin: 06/04/22 09:12 Dose: 60 mg Documented By: MARILOU Hydromorphone HCl (Hydromorphone Hcl 0.5 Mg/0.5 Ml Syringe) 0.5 mg IVPUSH Q4H PRN; Protocol PRN Reason: Pain, Severe (Pain Scale 7-10) Daptomycin 500 mg/ Sodium (Chloride) 60 mls @ 120 mls/hr IV Q24H [facility] Last Infusion: 06/03/22 23:07 Dose: 0 mls/hr Documented By: ASHLYN Insulin Human Lispro (Insulin Lispro 100 Unit/Ml 3 Ml Vial) 0 unit SUBCUT QIDACHS [facility]; Protocol Last Admin: 06/04/22 11:30 Dose: Not Given Documented By: MARILOU Non-Admin Reason: NPO Multivitamins/Vitamin C (Multivitamin Tablet) 1 tab PO DAILY [facility] Last Admin: 06/04/22 09:13 Dose: 1 tab Documented By: MARILOU Ondansetron HCl (Ondansetron Hcl 4 Mg/2 Ml Vial) 4 mg IVPUSH Q8H PRN PRN Reason: Nausea and Vomiting Oxycodone HCl (Oxycodone Hcl Immed Release 5 Mg Tablet) 5 mg PO Q6H PRN PRN Reason: Pain, Moderate (Pain Scale 4-6 Pantoprazole Sodium (Pantoprazole Sodium 40 Mg/10 Ml Vial) 40 mg IVPUSH BID@0630,1630 [facility] Last Admin: 06/04/22 05:11 Dose: 40 mg Documented By: ASHLYN Pharmacy Consult (Consult Rx Perform Med Rec) 1 each MISCELLANE ONCE PRN PRN Reason: Consult order Senna (Sennosides 8.6 Mg Tablet) 17.2 mg PO BEDTIME [facility] Last Admin: 06/03/22 22:33 Dose: 17.2 mg Documented By: ASHLYN Sodium Chloride (0.9 % Sodium Chloride Flush 3 Ml Syringe) 3 ml IVFLUSH QSHIFT [facility] Last Admin: 06/04/22 09:11 Dose: 3 ml Documented By: MARILOU Tacrolimus (Tacrolimus 1 Mg Capsule) 1 mg PO BID [facility] Last Admin: 06/04/22 09:12 Dose: 1 mg Documented By: MARILOU Vitamin D (Cholecalciferol (Vitamin D3) 25 Mcg Tablet) 25 mcg PO DAILY [facility] Last Admin: 06/04/22 09:12 Dose: 25 mcg Documented By: MARILOU Labs CBC & Chem 7: 06/04/22 06:39 06/04/22 06:39 Labs: Laboratory Results - last 24 hr 06/02/22 06/03/22 06/03/22 20:02 13:32 17:03 MCV MCH MCHC RDW Plt Count MPV Absolute Nucleated RBC Nucleated RBC % (auto) Anion Gap Estim Creat Clear Calc Estimated GFR POC Glucose 165 H 161 H Random Glucose Calcium Total Creatine Kinase B-Natriuretic Peptide Blood Type O Positive Antibody Screen NEGATIVE Crossmatch See Detail 06/03/22 06/03/22 06/04/22 18:01 20:10 06:36 MCV 92.2 MCH 31.6 MCHC 34.3 RDW 14.3 Plt Count 183 MPV 9.4 Absolute Nucleated RBC 0.000 Nucleated RBC % (auto) 0.0 Anion Gap Estim Creat Clear Calc Estimated GFR POC Glucose 217 H 161 H Random Glucose Calcium Total Creatine Kinase B-Natriuretic Peptide Blood Type Antibody Screen Crossmatch 06/04/22 06/04/22 06/04/22 06:39 06:39 06:39 MCV 91.6 MCH 31.6 MCHC 34.4 RDW 14.6 Plt Count 161 MPV 9.1 L Absolute Nucleated RBC 0.000 Nucleated RBC % (auto) 0.0 Anion Gap 14 Estim Creat Clear Calc 29.1 Estimated GFR 27 POC Glucose Random Glucose 186 H Calcium 8.3 L Total Creatine Kinase 341 H D B-Natriuretic Peptide 419 H Blood Type Antibody Screen Crossmatch 06/04/22 11:13 MCV MCH MCHC RDW Plt Count MPV Absolute Nucleated RBC Nucleated RBC % (auto) Anion Gap Estim Creat Clear Calc Estimated GFR POC Glucose 172 H Random Glucose Calcium Total Creatine Kinase B-Natriuretic Peptide Blood Type Antibody Screen Crossmatch Assessment and Plan (1) PAF (paroxysmal atrial fibrillation): Status: Acute (2) Acute blood loss anemia: Status: Acute (3) Gastrointestinal bleed: Status: Acute (4) Staphylococcus aureus bacteremia: Status: Acute Plan 71 year old pt history significant for non-alcoholic cirrhosis s/p liver transplant 5 years ago on tacrolimas, noninsulin dependent type 2 diabetes, hld, osteomyelitis spine with recent admission 05/22-05/25 for osteomyelitis of the sp ine with bacteremia with PICC in place for IV daptomycin with echo at that time showing severe aortic stenosis and new atrial fibrillation started on eliquis being admitted for acute CHF exacerbation, ZOILA, and acute blood loss anemia. 1-Acute new onset diastolic heart failure Last echo 05/22 with hyperdynamic LV systolic function with EF >70%. Diastolic fx indeterminate at that time. Widely variable valvular gradients d/t new afib with possible severe AV Increase Lasix to 60 mg b.i.d. IV Echo showed EF more than 70% with elevated filling pressures and severe aortic stenosis Cardiology input appreciated, repeat echo in assess for once medically stable Cardiac diet Salas catheter with strict I&O Daily weights 2-ZOILA likely cardiorenal, dehydration,acute interstitial nephritis. Improving slowly Pending tacrolimus level Creatinine improved to 2.37 (baseline 1.38 at discharge) and BUN 50 (baseline 21 on discharge) Nephrology consult and Follow BMP 3-Acute blood loss anemia Hemoglobin improved to 8.3 after blood transfusion Recent EGD 05/22 showed chronic ulcers without active bleeding. Started on omeprazole. ASA stopped Hold eliquis Negative hemolysis profile Transfusion to keep hemoglobin above 8 IV pantoprazole BID Follow H&H GI input appreciated, to repeat EGD 4-Paroxysmal atrial fibrillation diagnosed on 05/22 last admission. In sinus rhythm now Hold eliquis Following with Dr. Christiansen. Plan for 7 day holter outpt Cardiology input appreciated, repeat blood cultures and treated for CHF 5-Noninsulin dependent type 2 diabetes Diabetic diet Hold PO home meds Humalog SSI 6-H/o cirrhosis s/p liver transplant Liver enzymes stable Continue tacrolimus, check level 7-MSSA bacteremia 2/2 Acute osteomyelitis diagnosed recent admission, seen and evaluated by ID day (done 06/30) Continue daptomycin via PICC line Oxycodone and dilaudid per pain scale Id input appreciated 8-HTN controlled Continue home meds, lasix changed to iv DVT prophylaxis- mechanical. Hold eliquis d/t probable gi bleed Full code Patient will need overnight hospital stay for treatment of acute diastolic HF exacerbation with ZOILA requiring IV diuresis as well as probable GI bleed needing transfusion and ongoing monitoring to prevent further cardiac decompensation and reduce risk of ACS. Quality Stroke Does the patient have a stroke diagnosis?: No VTE Prior VTE?: No VTE Risk Level:: Medical - moderate - high VTE Device Contraindication: N/A - Device Ordered VTE Drug Contraindication: Treatment Not Tolerated
--- NOTE | 2022-06-04 12:57 | W.PM.OPN ---
Operative Note Operative Note Date of Service: 06/04/22 Narrative: Procedure Description: EGD Indication: acute blood loss anemia, melena Anesthesia: MAC FLEXIBLE TRANSORAL UPPER GASTROINTESTINAL ENDOSCOPY UPPER ENDOSCOPY Consent: Indications for the procedure and potential complications of bleeding, perforation, reaction to medications and missed diagnosis were discussed with the patient and informed consent was obtained. Instrument: Olympus GIF H 190 J mid size upper endoscope Monitoring: Vital signs and clinical assessment, continuous EKG monitoring, Pulse oximetry, Carbon Dioxide monitoring and blood pressure monitoring were done throughout the procedure. Procedure: The patient was placed in the left lateral decubitis position and pre-procedure medications were administered and a bite block was placed. The endoscope was inserted into the mouth and advanced under direct vision to the third part of duodenum. A careful inspection was made as the upper endoscope was withdrawn including a retroflexed examination of the proximal stomach; Findings and interventions are described below. Findings: Larynx:normal Esophagus: GE junction at 38 cm, diaphragm hiatus at 38 cm, moderate esophagitis noted Stomach: Patchy gastric erythema with several erosions at the antrum and one shallow superficial ulcer. Although this was not bleeding a clip was applied to close the ulcer due to recent melena. Grade 2 flap valve on retroflexed examination of the cardia. Duodenum: stellate shaped ulcer with friable edges, intense erythema and edema about 10 mm and oozing at the distal bulb as well as superficial ulceration at the proximal bulb measuring about 10-12 mm. x2 OVESCO clips were applied to close both ulcers. hemospray was then applied. Intervention: OVESCO clips to duodenal ulcers and resolution clip to stomach ulcer, with hemospray. Impression/Findings: erosive gastritis duodenal ulcers esophagitis PLAN: restart eliquis in 2 days high dose PPI e.g pantoprazole 40 mg bid with carafate 1 g BID please check h pylori stool antigen test
--- NOTE | 2022-06-04 12:59 | PC.NURSE ---
Dr Blake reached out to [facility] Dr Colon for cardiac clearance for EGD today. Per Isaiah through [facility] Text, patient okay to proceed with intermediate risk .
--- NOTE | 2022-06-04 13:38 | PM.PNCARD ---
Subjective Subjective Date of Service: 06/04/22 Interval history: Feeling better. For EGD today. Physical Exam Vital Signs: Last Vital Signs Temp 98.1 F 06/04/22 12:08 Pulse 71 06/04/22 12:08 Resp 16 06/04/22 12:08 BP 125/89 06/04/22 12:08 Pulse Ox 98 06/04/22 12:08 O2 Del Method 06/04/22 12:08 BMI result Body Mass Index 42.3 GENERAL APPEARANCE: in no acute distress. NECK: no carotid bruit, + jugular venous distention. SKIN: no suspicious lesions, warm and dry. HEART: ESM aortic area, no 2nd heart sound, regular rate and rhythm. LUNGS: clear to auscultation bilaterally. ABDOMEN: soft, nontender. EXTREMITIES: 1-2 + edema PERIPHERAL PULSES: equal. NEUROLOGIC: AAO x 3 Objective Labs and Meds Result diagrams: 06/04/22 06:39 06/04/22 06:39 Lab results: Laboratory Results - last 24 hr 06/02/22 06/03/22 06/03/22 20:02 17:03 18:01 WBC 3.0 L RBC 2.94 L D Hgb 9.3 L D Hct 27.1 L D MCV 92.2 MCH 31.6 MCHC 34.3 RDW 14.3 Plt Count 183 MPV 9.4 Absolute Nucleated RBC 0.000 Nucleated RBC % (auto) 0.0 Sodium Potassium Chloride Carbon Dioxide Anion Gap BUN Creatinine Estim Creat Clear Calc Estimated GFR POC Glucose 161 H Random Glucose Calcium Total Creatine Kinase B-Natriuretic Peptide Blood Type O Positive Antibody Screen NEGATIVE Crossmatch See Detail 06/03/22 06/04/22 06/04/22 20:10 06:36 06:39 WBC 2.7 L RBC 2.63 L Hgb 8.3 L Hct 24.1 L MCV 91.6 MCH 31.6 MCHC 34.4 RDW 14.6 Plt Count 161 MPV 9.1 L Absolute Nucleated RBC 0.000 Nucleated RBC % (auto) 0.0 Sodium Potassium Chloride Carbon Dioxide Anion Gap BUN Creatinine Estim Creat Clear Calc Estimated GFR POC Glucose 217 H 161 H Random Glucose Calcium Total Creatine Kinase B-Natriuretic Peptide Blood Type Antibody Screen Crossmatch 06/04/22 06/04/22 06/04/22 06:39 06:39 11:13 WBC RBC Hgb Hct MCV MCH MCHC RDW Plt Count MPV Absolute Nucleated RBC Nucleated RBC % (auto) Sodium 138 Potassium 4.5 Chloride 107 Carbon Dioxide 22 Anion Gap 14 BUN 50 H Creatinine 2.37 H Estim Creat Clear Calc 29.1 Estimated GFR 27 POC Glucose 172 H Random Glucose 186 H Calcium 8.3 L Total Creatine Kinase 341 H D B-Natriuretic Peptide 419 H Blood Type Antibody Screen Crossmatch Progress Note: A&P Assessment and plan (1) Acute diastolic (congestive) heart failure: Status: Acute (2) Non-rheumatic aortic stenosis: Status: Acute Plan 71-year-old gentleman with severe aortic valve stenosis and acute diastolic heart failure. Clinically he still is overloaded and I think he should continue diuretics for now. Creatinine has peaked at 2.37 currently. We will monitor closely. He needs EGD for anemia and previous diagnosis of ulcers in the distal body and antrum of the stomach. These were diagnosed on May 16. I think he can proceed with intermediate risk for perioperative complications. He had MSSA bacteremia presumed to be due to lumbosacral spine osteomyelitis. He has been on antibiotics. His blood cultures from May 22 were negative. He had repeat cultures drawn on this admission. He will need workup for transcatheter valve replacement. I think as his clinical condition improves we will consider left and right heart catheterization. His creatinine was significantly worse on this admission and I think we have to be careful with contrast exposure. Thank you for allowing me to participate in the care of your patient. Please feel free to contact me if you have any questions. Time Spent With Patient Time: Total time spent is greater than 50% in coordination of care (as documented) at patient's floor/unit and/or counseling patient: Progress Note: Quality Stroke Does the patient have a stroke diagnosis?: No Procedures Date of Service Date of Service: 06/04/22
[2022-06-04 15:02] LABS: Tacrolimus Prograf 8.4 mcg/L
[2022-06-04 16:55] LABS: Hemoglobin 9.6 g/dl (14.0-18.0); Mean Corpuscular HGB Conc 34.3 g/dl (31.0-36.0); Mean Corpuscular Hemoglobin 31.3 pg (27.0-33.0); Mean Corpuscular Volume 91.2 fL (80.0-98.0); Mean Platelet Volume 9.2 fL (9.4-12.4); Platelet Count 186 X10*3/uL (160-400); Red Blood Count 3.07 X10*6/uL (4.60-5.80); Red Cell Distribution Width 14.6 % (11.0-16.0); White Blood Count 3.4 X10*3/uL (4.8-10.8)
[2022-06-04 16:56] LABS: Glucose, Whole Blood 157 mg/dL (60-115)
[2022-06-04] MEDS: Insulin Lispro 100 UNIT/ML 3 ML VIAL SUBCUT (17:36)
[2022-06-04] MEDS: Heparin Sodium,Porcine Flush 50 UNITS, 0.9 % Sodium Chloride Flush 5 ML IVFLUSH (17:39)
[2022-06-04] MEDS: Atorvastatin Calcium 20 MG TABLET PO (20:46)
[2022-06-04 22:03] LABS: Glucose, Whole Blood 129 mg/dL (60-115)
[2022-06-05 03:29] VITALS: BP 139/68; PULSE 64; RESP 16; TEMP 36.8; O2SAT 97
[2022-06-05] MEDS: Pantoprazole Sodium 40 MG/10 ML VIAL IVPUSH ×2 (05:46→17:43)
[2022-06-05 06:39] LABS: Hematocrit 24.7 % (42.0-52.0); Hemoglobin 8.4 g/dl (14.0-18.0); Mean Corpuscular Hemoglobin 31.2 pg (27.0-33.0); Mean Corpuscular Volume 91.8 fL (80.0-98.0); Mean Platelet Volume 9.2 fL (9.4-12.4); Platelet Count 157 X10*3/uL (160-400); Red Blood Count 2.69 X10*6/uL (4.60-5.80); Red Cell Distribution Width 14.3 % (11.0-16.0); White Blood Count 2.8 X10*3/uL (4.8-10.8)
[2022-06-05 06:57] LABS: Anion Gap 15 (12-20); Blood Urea Nitrogen 44 mg/dL (9-16); Calcium 8.1 mg/dL (8.4-10.2); Carbon Dioxide 22 mmol/L (22-29); Chloride 104 mmol/L (96-108); Creatinine Clr Calc Pharmacy 31.4; Estimated Glomerular Filt Rate 30; Glucose Random 156 mg/dL (60-115); Potassium 4.4 mmol/L (3.3-5.1); Sodium 137 mmol/L (135-145)
[2022-06-05 07:02] VITALS: BP 145/72; PULSE 56; RESP 16; TEMP 36.8; O2SAT 98
[2022-06-05 07:21] LABS: Glucose, Whole Blood 143 mg/dL (60-115)
--- NOTE | 2022-06-05 09:00 | HO.POSTANES ---
Post Anesthesia Evaluation Post Anesthesia Evaluation Vital Signs: Vital Signs Temp Pulse Resp BP Pulse Ox O2 Del Method 06/05/22 07:02 98.2 F 56 16 145/72 H 98 Room Air 06/05/22 03:29 98.2 F 64 16 139/68 97 Room Air 06/04/22 23:40 96.9 F 70 16 136/79 94 Room Air Anesthesia: Monitored Mental Status: Awake Pain Control: Satisfactory Nausea/Vomiting: None Hydration: Adequate Anesthesia-Related Issues: No Anes. Related Issues Comments: pt complains of sore throat from endoscope. no anesthetic related complaints.
[2022-06-05] MEDS: amLODIPine Besylate 10 MG TABLET PO (09:03)
[2022-06-05] MEDS: Tacrolimus 1 MG CAPSULE PO ×2 (09:03→21:23)
[2022-06-05] MEDS: Cholecalciferol (Vitamin D3) 25 MCG TABLET PO (09:03)
[2022-06-05] MEDS: Docusate Sodium 100 MG CAPSULE PO (09:03)
[2022-06-05] MEDS: Furosemide 40 MG/4 ML VIAL 60 MG IVPUSH ×2 (09:04→21:24)
[2022-06-05] MEDS: cloNIDine HCL 0.1 MG TABLET PO ×2 (09:04→21:23)
[2022-06-05] MEDS: Multivitamin TABLET 1 TAB PO (09:04)
[2022-06-05] MEDS: 0.9 % Sodium Chloride Flush 3 ML SYRINGE IVFLUSH ×2 (09:05→17:48)
[2022-06-05 11:42] LABS: Glucose, Whole Blood 192 mg/dL (60-115)
[2022-06-05 11:52] VITALS: BP 120/65; PULSE 60; RESP 16; TEMP 36.7; O2SAT 98
[2022-06-05] MEDS: Insulin Lispro 100 UNIT/ML 3 ML VIAL SUBCUT ×3 (12:01→21:24)
--- NOTE | 2022-06-05 12:54 | HO.PM.IMPN ---
Subjective Subjective Date of Service: 06/05/22 Interval History: the patient was seen and evaluated this morning Laying in bed, feels dyspnea Hemoglobin stable 8.4 no bowel movement or bleeding last 24 hours No reported other overnight events. Systemic review: No fever, chills but reporting generalized weakness No chest pain, palpitation but has edema in lower extremities and reporting dyspnea Shortness of breath but no coughing No abdominal pain, nausea or vomiting No urinary symptoms No any rash or wounds Physical Exam Vital Signs: Vital Signs: Last Vital Signs Temp 98.1 F 06/05/22 11:52 Pulse 60 06/05/22 11:52 Resp 16 06/05/22 11:52 BP 120/65 06/05/22 11:52 Pulse Ox 98 06/05/22 11:52 O2 Del Method 06/05/22 11:52 BMI result Body Mass Index 42.3 Const: Other: Constitutional : Alert, oriented, not in distress Neck : Normal inspection, Supple Cardiovascular : RRR, no JVP, trace bilateral lower extremity edema, murmur Respiratory : fair bilateral air entry, no crackles, wheezes or rhonchi Gastrointestinal: soft, lax, Normal bowel sounds, Non tender Skin : Warm, Dry Neurological : Alert & oriented x3, No focal deficit Objective Data Active Medications Acetaminophen (Acetaminophen Supp 650 Mg Supp.Rect) 650 mg AR Q6H PRN PRN Reason: Pain, Mild (Pain Scale 1-3) Amlodipine Besylate (Amlodipine Besylate 10 Mg Tablet) 10 mg PO DAILY [facility]; Protocol Last Admin: 06/05/22 09:03 Dose: 10 mg Documented By: KIMBERLY Apixaban (Apixaban 5 Mg Tablet) 5 mg PO BID [facility] Atorvastatin Calcium (Atorvastatin Calcium 20 Mg Tablet) 20 mg PO BEDTIME [facility] Last Admin: 06/04/22 20:46 Dose: 20 mg Documented By: JOY Clonidine HCl (Clonidine Hcl 0.1 Mg Tablet) 0.1 mg PO BID [facility]; Protocol Last Admin: 06/05/22 09:04 Dose: 0.1 mg Documented By: KIMBERLY Docusate Sodium (Docusate Sodium 100 Mg Capsule) 100 mg PO BID [facility] Last Admin: 06/05/22 09:03 Dose: 100 mg Documented By: KIMBERLY Furosemide (Furosemide 40 Mg/4 Ml Vial) 60 mg IVPUSH Q12H [facility]; Protocol Last Admin: 06/05/22 09:04 Dose: 60 mg Documented By: KIMBERLY Hydromorphone HCl (Hydromorphone Hcl 0.5 Mg/0.5 Ml Syringe) 0.5 mg IVPUSH Q4H PRN; Protocol PRN Reason: Pain, Severe (Pain Scale 7-10) Daptomycin 500 mg/ Sodium (Chloride) 60 mls @ 120 mls/hr IV Q24H [facility] Last Admin: 06/05/22 00:18 Dose: Not Given Documented By: JOY Non-Admin Reason: med not available globally Insulin Human Lispro (Insulin Lispro 100 Unit/Ml 3 Ml Vial) 0 unit SUBCUT QIDACHS [facility]; Protocol Last Admin: 06/05/22 12:01 Dose: 2 unit Documented By: KEITH Comments: per sliding scale Multivitamins/Vitamin C (Multivitamin Tablet) 1 tab PO DAILY [facility] Last Admin: 06/05/22 09:04 Dose: 1 tab Documented By: KIMBERLY Ondansetron HCl (Ondansetron Hcl 4 Mg/2 Ml Vial) 4 mg IVPUSH Q8H PRN PRN Reason: Nausea and Vomiting Oxycodone HCl (Oxycodone Hcl Immed Release 5 Mg Tablet) 5 mg PO Q6H PRN PRN Reason: Pain, Moderate (Pain Scale 4-6 Pantoprazole Sodium (Pantoprazole Sodium 40 Mg/10 Ml Vial) 40 mg IVPUSH BID@0630,1630 [facility] Last Admin: 06/05/22 05:46 Dose: 40 mg Documented By: ANALIA Pharmacy Consult (Consult Rx Perform Med Rec) 1 each MISCELLANE ONCE PRN PRN Reason: Consult order Senna (Sennosides 8.6 Mg Tablet) 17.2 mg PO BEDTIME [facility] Last Admin: 06/04/22 22:15 Dose: Not Given Documented By: JOY Non-Admin Reason: Patient Refused Sodium Chloride (0.9 % Sodium Chloride Flush 3 Ml Syringe) 3 ml IVFLUSH QSHIFT COUNT [facility] Last Admin: 06/05/22 09:05 Dose: 3 ml Documented By: KIMBERLY Sucralfate (Sucralfate 1 Gm Tablet) 1 gm PO BIDAC COUNT INCLUDES [facility] Tacrolimus (Tacrolimus 1 Mg Capsule) 1 mg PO BID [facility] Last Admin: 06/05/22 09:03 Dose: 1 mg Documented By: KIMBERLY Vitamin D (Cholecalciferol (Vitamin D3) 25 Mcg Tablet) 25 mcg PO DAILY [facility] Last Admin: 06/05/22 09:03 Dose: 25 mcg Documented By: KIMBERLY Labs CBC & Chem 7: 06/05/22 06:02 06/05/22 05:42 Labs: Laboratory Results - last 24 hr 06/03/22 06/04/22 06/04/22 09:24 16:31 16:53 MCV 91.2 MCH 31.3 MCHC 34.3 RDW 14.6 Plt Count 186 MPV 9.2 L Absolute Nucleated RBC 0.000 Nucleated RBC % (auto) 0.0 Anion Gap Estim Creat Clear Calc Estimated GFR POC Glucose 157 H Random Glucose Calcium Tacrolimus 8.4 06/04/22 06/05/22 06/05/22 21:48 05:42 06:02 MCV 91.8 MCH 31.2 MCHC 34.0 RDW 14.3 Plt Count 157 L MPV 9.2 L Absolute Nucleated RBC 0.000 Nucleated RBC % (auto) 0.0 Anion Gap 15 Estim Creat Clear Calc 31.4 Estimated GFR 30 POC Glucose 129 H Random Glucose 156 H Calcium 8.1 L Tacrolimus 06/05/22 06/05/22 07:04 11:37 MCV MCH MCHC RDW Plt Count MPV Absolute Nucleated RBC Nucleated RBC % (auto) Anion Gap Estim Creat Clear Calc Estimated GFR POC Glucose 143 H 192 H Random Glucose Calcium Tacrolimus Microbiology Microbiology Results: Microbiology 06/03/22 18:01 Blood Culture - Preliminary Blood - Venous No growth after 24 hours. 06/03/22 18:01 Blood Culture - Preliminary Blood - Venous No growth after 24 hours. Assessment and Plan (1) Staphylococcus aureus bacteremia: Status: Acute (2) Duodenal ulcer: Status: Acute (3) Acute diastolic (congestive) heart failure: Status: Acute (4) Osteomyelitis: Status: Acute (5) ZOILA (acute kidney injury): Status: Acute (6) Gastrointestinal bleed: Status: Acute Plan 71 year old pt history significant for non-alcoholic cirrhosis s/p liver transplant 5 years ago on tacrolimas, noninsulin dependent type 2 diabetes, hld, osteomyelitis spine with recent admission 05/22-05/25 for osteomyelitis of the spine with bacteremia with PICC in place for IV daptomycin with echo at that time showing severe aortic stenosis and new atrial fibrillation started on eliquis being admitted for acute CHF exacerbation, ZOILA, and acute blood loss anemia. 1-Acute new onset diastolic heart failure Last echo 05/22 with hyperdynamic LV systolic function with EF >70%. Diastolic fx indeterminate at that time. Widely variable valvular gradients d/t new afib with possible severe AV Continue Lasix to 60 mg b.i.d. IV Echo showed EF more than 70% with elevated filling pressures and severe aortic stenosis Cardiology input appreciated, repeat echo in assess for once medically stable Cardiac diet Salas catheter with strict I&O Daily weights 2-ZOILA likely cardiorenal, dehydration,acute interstitial nephritis. Improving slowly Within range tacrolimus level Creatinine improved to 2.1 (baseline 1.38 at discharge) and BUN 44 (baseline 21 on discharge) Nephrology consult and Follow BMP 3-Acute blood loss anemia Hemoglobin stable at 8.4 Recent EGD 05/22 showed chronic ulcers without active bleeding. ASA stopped Hold eliquis Negative hemolysis profile Transfusion to keep hemoglobin above 8 IV pantoprazole BID Follow H&H GI input appreciated, repeat EGD showed a duodenal ulcer with 2 clips placed, 1 gastric ulcer with 1 clip placed 4-Paroxysmal atrial fibrillation diagnosed on 05/22 last admission. In sinus rhythm now Hold eliquis Following with Dr. Christiansen. Plan for 7 day holter outpt Cardiology input appreciated, repeat blood cultures and treated for CHF 5-Noninsulin dependent type 2 diabetes Diabetic diet Hold PO home meds Humalog SSI 6-H/o cirrhosis s/p liver transplant Liver enzymes stable Continue tacrolimus, check level 7-MSSA bacteremia 2/2 Acute osteomyelitis diagnosed recent admission, seen and evaluated by ID day (done 06/30) Continue daptomycin via PICC line Oxycodone and dilaudid per pain scale Id input appreciated 8-HTN controlled Continue home meds, lasix changed to iv DVT prophylaxis- mechanical. Hold eliquis d/t probable gi bleed Full code Patient will need overnight hospital stay for treatment of acute diastolic HF exacerbation with ZOILA requiring IV diuresis as well as probable GI bleed needing transfusion and ongoing monitoring to prevent further cardiac decompensation and reduce risk of ACS. Quality Stroke Does the patient have a stroke diagnosis?: No VTE Prior VTE?: No VTE Risk Level:: Medical - moderate - high VTE Device Contraindication: N/A - Device Ordered VTE Drug Contraindication: Treatment Not Tolerated
--- NOTE | 2022-06-05 14:51 | MHC.CM.PN ---
Patient DX HF and ZOILA will not dc today per MD rounds. A clinical update has been sent to [facility] and [facility] [place]. DP home with services family will transport home.
[2022-06-05 15:02] LABS: Haptoglobin 14 mg/dL (43-212)
[2022-06-05 15:22] VITALS: BP 132/65; PULSE 66; RESP 20; TEMP 37.1; O2SAT 96
--- NOTE | 2022-06-05 16:19 | PM.PNNEP ---
Subjective Subjective Date of Service: 06/05/22 Interval history: the pt is breathing more comfortably wants to keep mckeon in Systemic review: No fever, chills but reporting generalized weakness No chest pain, palpitation but has edema in lower extremities and reporting dyspnea Shortness of breath but no coughing No abdominal pain, nausea or vomiting No urinary symptoms No any rash or wounds Physical Exam Vital Signs: Vital Signs: Last Vital Signs Temp 98.7 F 06/05/22 15:22 Pulse 66 06/05/22 15:22 Resp 20 06/05/22 15:22 BP 132/65 06/05/22 15:22 Pulse Ox 96 06/05/22 15:22 O2 Del Method 06/05/22 15:22 BMI result Body Mass Index 42.3 Const: Other: Constitutional : Alert, oriented, not in distress Neck : Normal inspection, Supple Cardiovascular : RRR, no JVP, trace bilateral lower extremity edema, murmur Respiratory : fair bilateral air entry, no crackles, wheezes or rhonchi Gastrointestinal: soft, lax, Normal bowel sounds, Non tender Skin : Warm, Dry Neurological : Alert & oriented x3, No focal deficit General: cooperative and no acute distress Orientation/consciousness: patient oriented x3 Limitations: No language barrier HEENT: Head: Yes normal to inspection Face and sinus: Yes normal facial exam Mouth: Normal oral and palatal mucosa present Teeth and gingiva: dentition normal Eyes: General: appearance normal, both eyes and all related structures Pupils: Equal, round and reactive pupils present EOM: EOMs intact bilaterally Neck: Neck: Yes supple Resp: Effort & Inspection: normal respiratory effort Auscultation: diminished lung sounds Cardio: Rate: regular rate Rhythm: regular rhythm Heart sounds: Murmur heart sound present (3/6 RAYNA) GI: Palpation (GI): Soft to palpation and nontender : General: Yes no CVA tenderness Back/Spine/Pelvis: Back: no CVA tenderness Skin: General skin exam: no rashes or lesions noted Neuro: General: patient oriented x3 and moves all extremities Cranial nerves: Yes Equal, round and reactive pupils present Extrem: General: Yes pedal edema Psych: Appearance: grossly normal Objective Data Labs CBC & Chem 7: 06/05/22 06:02 06/05/22 05:42 Labs: Laboratory Results - last 24 hr 09/07/22 09/08/22 09/08/22 09:24 16:31 16:53 WBC 3.4 L RBC 3.07 L Hgb 9.6 L Hct 28.0 L MCV 91.2 MCH 31.3 MCHC 34.3 RDW 14.6 Plt Count 186 MPV 9.2 L Absolute Nucleated RBC 0.000 Nucleated RBC % (auto) 0.0 Haptoglobin 14 L Sodium Potassium Chloride Carbon Dioxide Anion Gap BUN Creatinine Estim Creat Clear Calc Estimated GFR POC Glucose 157 H Random Glucose Calcium 06/04/22 06/05/22 06/05/22 21:48 05:42 06:02 WBC 2.8 L RBC 2.69 L Hgb 8.4 L Hct 24.7 L MCV 91.8 MCH 31.2 MCHC 34.0 RDW 14.3 Plt Count 157 L MPV 9.2 L Absolute Nucleated RBC 0.000 Nucleated RBC % (auto) 0.0 Haptoglobin Sodium 137 Potassium 4.4 Chloride 104 Carbon Dioxide 22 Anion Gap 15 BUN 44 H Creatinine 2.19 H Estim Creat Clear Calc 31.4 Estimated GFR 30 POC Glucose 129 H Random Glucose 156 H Calcium 8.1 L 06/05/22 06/05/22 07:04 11:37 WBC RBC Hgb Hct MCV MCH MCHC RDW Plt Count MPV Absolute Nucleated RBC Nucleated RBC % (auto) Haptoglobin Sodium Potassium Chloride Carbon Dioxide Anion Gap BUN Creatinine Estim Creat Clear Calc Estimated GFR POC Glucose 143 H 192 H Random Glucose Calcium Microbiology Microbiology Results: Microbiology 06/03/22 18:01 Blood - Venous Blood Culture - Preliminary No growth after 24 hours. 06/03/22 18:01 Blood - Venous Blood Culture - Preliminary No growth after 24 hours. Procedures Date of Service Date of Service: 06/05/22 Assessment & Plan Assessment and plan (1) Staphylococcus aureus bacteremia: Status: Acute (2) Acute diastolic (congestive) heart failure: Status: Acute (3) ZOILA (acute kidney injury): Status: Acute (4) Liver transplant recipient: Status: Acute (5) CKD (chronic kidney disease) stage 3, GFR 30-59 ml/min: Status: Acute Plan 71 year old pt history significant for non-alcoholic cirrhosis s/p liver transplant 5 years ago on tacrolimas, noninsulin dependent type 2 diabetes, hld, osteomyelitis spine with recent admission 05/22-05/25 for osteomyelitis of the spine with bacteremia with PICC in place for IV daptomycin with echo at that time showing severe aortic stenosis and new atrial fibrillation started on eliquis being admitted for acute CHF exacerbation, ZOILA, and acute blood loss anemia. ZOILA likely due to CR Syndrome Liver Transplant Likely had tubular injury due to altered auto regulation being on ACEI; ddx would includ possible postinfectious GN given now hematuria and recent active deep seated infection Check complement levels C3 and C4 and IgA level Creat 2.1 Hold ACEI. C/W Diuresis; Increase lasix to 80 mg bid?. Needs TAVR eval sooner than later Hold Vitamin C; CK levels reviewed being on Dapto; Urine protein creatinine ratio reviewed W/U in progress;? . C/W current dose of Tacrolimus; recommend: check /await complements check IgA level Check renal US Time Spent With Patient Time: Total time spent is greater than 50% in coordination of care (as documented) at patient's floor/unit and/or counseling patient: Progress Note: Quality Stroke Does the patient have a stroke diagnosis?: No
[2022-06-05 16:29] LABS: Glucose, Whole Blood 280 mg/dL (60-115)
[2022-06-05] MEDS: Sucralfate 1 GM TABLET PO (17:44)
[2022-06-05 19:30] VITALS: BP 139/84; PULSE 67; RESP 20; TEMP 37; O2SAT 98
--- NOTE | 2022-06-05 20:23 | PM.PNCARD ---
Subjective Subjective Date of Service: 06/05/22 Interval history: seen and examined at bedside Doing ok. Still overloaded. Had EGD and had clips placed to peptic ulcer. Physical Exam Vital Signs: Last Vital Signs Temp 98.6 F 06/05/22 19:30 Pulse 67 06/05/22 19:30 Resp 20 06/05/22 19:30 BP 139/84 06/05/22 19:30 Pulse Ox 98 06/05/22 19:30 O2 Del Method 06/05/22 19:30 BMI result Body Mass Index 42.3 GENERAL APPEARANCE: in no acute distress. NECK: no carotid bruit, + jugular venous distention. SKIN: no suspicious lesions, warm and dry. HEART: ESM aortic area, no 2nd heart sound, regular rate and rhythm. LUNGS: clear to auscultation bilaterally. ABDOMEN: soft, nontender. EXTREMITIES: 1-2 + edema PERIPHERAL PULSES: equal. NEUROLOGIC: AAO x 3 Objective Labs and Meds Result diagrams: 06/05/22 06:02 06/05/22 05:42 Lab results: Laboratory Results - last 24 hr 06/03/22 06/04/22 06/05/22 09:24 21:48 05:42 WBC RBC Hgb Hct MCV MCH MCHC RDW Plt Count MPV Absolute Nucleated RBC Nucleated RBC % (auto) Haptoglobin 14 L Sodium 137 Potassium 4.4 Chloride 104 Carbon Dioxide 22 Anion Gap 15 BUN 44 H Creatinine 2.19 H Estim Creat Clear Calc 31.4 Estimated GFR 30 POC Glucose 129 H Random Glucose 156 H Calcium 8.1 L 06/05/22 06/05/22 06/05/22 06:02 07:04 11:37 WBC 2.8 L RBC 2.69 L Hgb 8.4 L Hct 24.7 L MCV 91.8 MCH 31.2 MCHC 34.0 RDW 14.3 Plt Count 157 L MPV 9.2 L Absolute Nucleated RBC 0.000 Nucleated RBC % (auto) 0.0 Haptoglobin Sodium Potassium Chloride Carbon Dioxide Anion Gap BUN Creatinine Estim Creat Clear Calc Estimated GFR POC Glucose 143 H 192 H Random Glucose Calcium 06/05/22 16:13 WBC RBC Hgb Hct MCV MCH MCHC RDW Plt Count MPV Absolute Nucleated RBC Nucleated RBC % (auto) Haptoglobin Sodium Potassium Chloride Carbon Dioxide Anion Gap BUN Creatinine Estim Creat Clear Calc Estimated GFR POC Glucose 280 H Random Glucose Calcium Progress Note: A&P Assessment and plan (1) Acute diastolic (congestive) heart failure: Status: Acute (2) Non-rheumatic aortic stenosis: Status: Acute Plan 71-year-old gentleman with severe aortic valve stenosis and acute diastolic heart failure. Clinically he still is overloaded and I think he should continue diuretics for now. MSSA bacteremia cleared. c/w Abx s/p EGD which showed ulcer which was treated with clips. as per GI can resume anticoagulation. He will need workup for transcatheter valve replacement. I think as his clinical condition improves we will consider left and right heart catheterization. His creatinine was significantly worse on this admission and I think we have to be careful with contrast exposure. Thank you for allowing me to participate in the care of your patient. Please feel free to contact me if you have any questions. Time Spent With Patient Time: Total time spent is greater than 50% in coordination of care (as documented) at patient's floor/unit and/or counseling patient: Progress Note: Quality Stroke Does the patient have a stroke diagnosis?: No Procedures Date of Service Date of Service: 06/05/22
[2022-06-05 20:55] LABS: Glucose, Whole Blood 168 mg/dL (60-115)
[2022-06-05] MEDS: Sennosides 8.6 MG TABLET 17.2 MG PO (21:23)
[2022-06-05] MEDS: Atorvastatin Calcium 20 MG TABLET PO (21:24)
[2022-06-05] MEDS: DAPTOmycin 500 MG in 0.9 % Sodium Chloride 50 ML 120 MG IV (22:30)
[2022-06-05 23:18] VITALS: BP 138/71; PULSE 66; RESP 16; TEMP 36.8; O2SAT 97
[2022-06-06 03:23] VITALS: BP 134/65; PULSE 61; RESP 16; TEMP 36.8; O2SAT 97
[2022-06-06] MEDS: Omeprazole 40 MG CAPSULE.DR PO ×2 (06:15→16:47)
[2022-06-06 07:39] LABS: Glucose, Whole Blood 173 mg/dL (60-115)
[2022-06-06] MEDS: Insulin Lispro 100 UNIT/ML 3 ML VIAL SUBCUT ×4 (07:59→22:03)
[2022-06-06 08:00] VITALS: BP 131/71; PULSE 60; RESP 18; TEMP 37.1; O2SAT 98
[2022-06-06] MEDS: Multivitamin TABLET 1 TAB PO (08:00)
[2022-06-06] MEDS: Sucralfate 1 GM TABLET PO ×2 (08:00→16:47)
[2022-06-06] MEDS: Cholecalciferol (Vitamin D3) 25 MCG TABLET PO (08:00)
[2022-06-06] MEDS: Apixaban 5 MG TABLET PO ×2 (08:00→22:03)
[2022-06-06] MEDS: Docusate Sodium 100 MG CAPSULE PO ×2 (08:00→22:03)
[2022-06-06] MEDS: cloNIDine HCL 0.1 MG TABLET PO ×2 (08:00→22:03)
[2022-06-06] MEDS: amLODIPine Besylate 10 MG TABLET PO (08:00)
[2022-06-06] MEDS: Tacrolimus 1 MG CAPSULE PO ×2 (08:00→22:03)
[2022-06-06] MEDS: Furosemide 40 MG/4 ML VIAL 60 MG IVPUSH (08:02)
[2022-06-06] MEDS: 0.9 % Sodium Chloride Flush 3 ML SYRINGE IVFLUSH ×3 (08:02→22:04)
[2022-06-06 08:17] LABS: Hematocrit 24.4 % (42.0-52.0); Hemoglobin 8.3 g/dl (14.0-18.0); Mean Corpuscular Hemoglobin 30.9 pg (27.0-33.0); Mean Corpuscular Volume 90.7 fL (80.0-98.0); Mean Platelet Volume 9.6 fL (9.4-12.4); Platelet Count 156 X10*3/uL (160-400); Red Blood Count 2.69 X10*6/uL (4.60-5.80); Red Cell Distribution Width 14.4 % (11.0-16.0); White Blood Count 2.7 X10*3/uL (4.8-10.8)
[2022-06-06 08:33] LABS: B Type Natriuretic Peptide 197 pg/mL (<100)
[2022-06-06 08:37] LABS: Anion Gap 14 (12-20); Blood Urea Nitrogen 46 mg/dL (9-16); Calcium 8.2 mg/dL (8.4-10.2); Carbon Dioxide 24 mmol/L (22-29); Chloride 102 mmol/L (96-108); Creatinine Clr Calc Pharmacy 27.2; Estimated Glomerular Filt Rate 25; Glucose Random 181 mg/dL (60-115); Potassium 4.4 mmol/L (3.3-5.1); Sodium 136 mmol/L (135-145)
[2022-06-06 11:52] LABS: Glucose, Whole Blood 290 mg/dL (60-115)
[2022-06-06 12:00] VITALS: BP 123/73; PULSE 65; RESP 18; TEMP 36.3; O2SAT 99
--- NOTE | 2022-06-06 12:00 | P.PNIM_ITS ---
Subjective Subjective Date of Service: 06/06/22 Interval History: the patient was seen and evaluated this morning Laying in bed, feels much better Hemoglobin stable 8.3 Creatinine increased to 2.5 no evidence of bleeding last 48 hours No reported other overnight events. Systemic review: No fever, chills but reporting generalized weakness No chest pain, palpitation but has edema in lower extremities that is improving Shortness of breath but no coughing No abdominal pain, nausea or vomiting No urinary symptoms No any rash or wounds Physical Exam Vital Signs: Vital Signs: Last Vital Signs Temp 98.7 F 06/06/22 08:00 Pulse 60 06/06/22 08:00 Resp 18 06/06/22 08:00 BP 131/71 06/06/22 08:00 Pulse Ox 98 06/06/22 08:00 O2 Del Method 06/06/22 08:00 BMI result Body Mass Index 42.3 Const: Other: Constitutional : Alert, oriented, not in distress Neck : Normal inspection, Supple Cardiovascular : RRR, no JVP, trace bilateral lower extremity edema, murmur Respiratory : fair bilateral air entry, no crackles, wheezes or rhonchi Gastrointestinal: soft, lax, Normal bowel sounds, Non tender Skin : Warm, Dry Neurological : Alert & oriented x3, No focal deficit Objective Data Active Medications Acetaminophen (Acetaminophen Supp 650 Mg Supp.Rect) 650 mg CA Q6H PRN PRN Reason: Pain, Mild (Pain Scale 1-3) Amlodipine Besylate (Amlodipine Besylate 10 Mg Tablet) 10 mg PO DAILY [facility]; Protocol Last Admin: 06/06/22 08:00 Dose: 10 mg Documented By: KIMBERLY Apixaban (Apixaban 5 Mg Tablet) 5 mg PO BID [facility] Last Admin: 06/06/22 08:00 Dose: 5 mg Documented By: KIMBERLY Atorvastatin Calcium (Atorvastatin Calcium 20 Mg Tablet) 20 mg PO BEDTIME [facility] Last Admin: 06/05/22 21:24 Dose: 20 mg Documented By: ALEJANDRA Clonidine HCl (Clonidine Hcl 0.1 Mg Tablet) 0.1 mg PO BID [facility]; Protocol Last Admin: 06/06/22 08:00 Dose: 0.1 mg Documented By: KIMBERLY Docusate Sodium (Docusate Sodium 100 Mg Capsule) 100 mg PO BID [facility] Last Admin: 06/06/22 08:00 Dose: 100 mg Documented By: KIMBERLY Hydromorphone HCl (Hydromorphone Hcl 0.5 Mg/0.5 Ml Syringe) 0.5 mg IVPUSH Q4H PRN; Protocol PRN Reason: Pain, Severe (Pain Scale 7-10) Daptomycin 500 mg/ Sodium (Chloride) 60 mls @ 120 mls/hr IV Q24H [facility] Last Infusion: 06/05/22 23:37 Dose: 0 mls/hr Documented By: NUHA Insulin Human Lispro (Insulin Lispro 100 Unit/Ml 3 Ml Vial) 0 unit SUBCUT QI [facility]; Protocol Last Admin: 06/06/22 07:59 Dose: 2 unit Documented By: KIMBERLY Multivitamins/Vitamin C (Multivitamin Tablet) 1 tab PO DAILY [facility] Last Admin: 06/06/22 08:00 Dose: 1 tab Documented By: KIMBERLY Omeprazole (Omeprazole 40 Mg Capsule.Dr) 40 mg PO BID@0630,1630 [facility] Last Admin: 06/06/22 06:15 Dose: 40 mg Documented By: NUHA Ondansetron HCl (Ondansetron Hcl 4 Mg/2 Ml Vial) 4 mg IVPUSH Q8H PRN PRN Reason: Nausea and Vomiting Oxycodone HCl (Oxycodone Hcl Immed Release 5 Mg Tablet) 5 mg PO Q6H PRN PRN Reason: Pain, Moderate (Pain Scale 4-6 Pharmacy Consult (Consult Rx Perform Med Rec) 1 each MISCELLANE ONCE PRN PRN Reason: Consult order Senna (Sennosides 8.6 Mg Tablet) 17.2 mg PO BEDTIME [facility] Last Admin: 06/05/22 21:23 Dose: 17.2 mg Documented By: ALEJANDRA Sodium Chloride (0.9 % Sodium Chloride Flush 3 Ml Syringe) 3 ml IVFLUSH QSHIFT [facility] Last Admin: 06/06/22 08:02 Dose: 3 ml Documented By: KIMBERLY Sucralfate (Sucralfate 1 Gm Tablet) 1 gm PO BIDAC [facility] Last Admin: 06/06/22 08:00 Dose: 1 gm Documented By: KIMBERLY Tacrolimus (Tacrolimus 1 Mg Capsule) 1 mg PO BID [facility] Last Admin: 06/06/22 08:00 Dose: 1 mg Documented By: KIMBERLY Vitamin D (Cholecalciferol (Vitamin D3) 25 Mcg Tablet) 25 mcg PO DAILY [facility] Last Admin: 06/06/22 08:00 Dose: 25 mcg Documented By: KIMBERLY Labs CBC & Chem 7: 06/06/22 07:42 06/06/22 07:42 Labs: Laboratory Results - last 24 hr 06/03/22 06/05/22 06/05/22 09:24 16:13 20:45 MCV MCH MCHC RDW Plt Count MPV Absolute Nucleated RBC Nucleated RBC % (auto) Haptoglobin 14 L Anion Gap Estim Creat Clear Calc Estimated GFR POC Glucose 280 H 168 H Random Glucose Calcium B-Natriuretic Peptide 06/06/22 06/06/22 06/06/22 07:27 07:42 07:42 MCV 90.7 MCH 30.9 MCHC 34.0 RDW 14.4 Plt Count 156 L MPV 9.6 Absolute Nucleated RBC 0.000 Nucleated RBC % (auto) 0.0 Haptoglobin Anion Gap 14 Estim Creat Clear Calc 27.2 Estimated GFR 25 POC Glucose 173 H Random Glucose 181 H Calcium 8.2 L B-Natriuretic Peptide 06/06/22 06/06/22 07:42 11:24 MCV MCH MCHC RDW Plt Count MPV Absolute Nucleated RBC Nucleated RBC % (auto) Haptoglobin Anion Gap Estim Creat Clear Calc Estimated GFR POC Glucose 290 H Random Glucose Calcium B-Natriuretic Peptide 197 H Microbiology Microbiology Results: Microbiology 06/03/22 18:01 Blood Culture - Preliminary Blood - Venous No growth after 48 hours. 06/03/22 18:01 Blood Culture - Preliminary Blood - Venous No growth after 48 hours. Assessment and Plan (1) Staphylococcus aureus bacteremia: Status: Acute (2) Duodenal ulcer: Status: Acute (3) ZOILA (acute kidney injury): Status: Acute (4) Acute diastolic (congestive) heart failure: Status: Acute (5) Acute blood loss anemia: Status: Acute Plan 71 year old pt history significant for non-alcoholic cirrhosis s/p liver transplant 5 years ago on tacrolimas, noninsulin dependent type 2 diabetes, hld, osteomyelitis spine with recent admission 05/22-05/25 for osteomyelitis of the spine with bacteremia with PICC in place for IV daptomycin with echo at that time showing severe aortic stenosis and new atrial fibrillation started on eliquis being admitted for acute CHF exacerbation, ZOILA, and acute blood loss anemia. 1-Acute new onset diastolic heart failure Hold Lasix due to Zoila I Echo showed EF more than 70% with elevated filling pressures and severe aortic stenosis Cardiology input appreciated, repeat echo in assess for once medically stable Cardiac diet DC Salas strict I&O Fluid restriction 2-ZOILA Creatinine worsened to 2.5 (baseline 1.38 at discharge) and BUN 50s (baseline 21 on discharge) Primarily believed to be secondary to cardiorenal, improved with diuresis but started to worsen again, could be secondary to prerenal now Hold Lasix and other nephrotoxic medications Nephrology following Follow BMP 3-Acute blood loss anemia Hemoglobin stable at 8.4 GI input appreciated, repeat EGD showed a duodenal ulcer with 2 clips placed, 1 gastric ulcer with 1 clip placed ASA stopped, Eliquis restarted IV pantoprazole BID, car of 8 b.i.d. Follow H&H 4-Paroxysmal atrial fibrillation diagnosed on 05/22 last admission. In sinus rhythm now Restarted eliquis Following with Dr. Christiansen. Plan for 7 day holter outpt Cardiology input appreciated, follow as outpatient for aortic stenosis possible AVR 5-Noninsulin dependent type 2 diabetes Diabetic diet Hold PO home meds Humalog SSI 6-H/o cirrhosis s/p liver transplant Liver enzymes stable Continue tacrolimus, check level 7-MSSA bacteremia 2/2 Acute osteomyelitis diagnosed recent admission, seen and evaluated by ID To finish by 06/30 Continue daptomycin via PICC line Oxycodone and dilaudid per pain scale Id input appreciated 8-HTN controlled Continue home meds DVT prophylaxis Eliquis Patient will need overnight hospital stay for treatment of acute diastolic HF exacerbation with ZOILA and recent GIB restarted on Eliquis to monitor for bleeding and need of transfusion with ongoing monitoring to prevent further cardiac decompensation and reduce risk of ACS and safe discharge plan Quality Stroke Does the patient have a stroke diagnosis?: No VTE Prior VTE?: No VTE Risk Level:: Medical - moderate - high VTE Device Contraindication: N/A - Device Ordered VTE Drug Contraindication: Treatment Not Tolerated
--- NOTE | 2022-06-06 13:22 | PM.PNCARD ---
Subjective Subjective Date of Service: 06/06/22 Interval history: Patient seen examined at bedside. Feeling great. Creatinine improved but rising again. Diuretics were held. Physical Exam Vital Signs: Last Vital Signs Temp 97.3 F 06/06/22 12:00 Pulse 65 06/06/22 12:00 Resp 18 06/06/22 12:00 BP 123/73 06/06/22 12:00 Pulse Ox 99 06/06/22 12:00 O2 Del Method 06/06/22 12:00 BMI result Body Mass Index 42.3 GENERAL APPEARANCE: in no acute distress. NECK: no carotid bruit, no significant JVD. SKIN: no suspicious lesions, warm and dry. HEART: ESM aortic area, no 2nd heart sound, regular rate and rhythm. LUNGS: clear to auscultation bilaterally. ABDOMEN: soft, nontender. EXTREMITIES: Mild edema left ankle. One to 2+ edema right lower extremity which is chronic PERIPHERAL PULSES: equal. NEUROLOGIC: AAO x 3 Objective Labs and Meds Result diagrams: 06/06/22 07:42 06/06/22 07:42 Lab results: Laboratory Results - last 24 hr 06/03/22 06/05/22 06/05/22 09:24 16:13 20:45 WBC RBC Hgb Hct MCV MCH MCHC RDW Plt Count MPV Absolute Nucleated RBC Nucleated RBC % (auto) Haptoglobin 14 L Sodium Potassium Chloride Carbon Dioxide Anion Gap BUN Creatinine Estim Creat Clear Calc Estimated GFR POC Glucose 280 H 168 H Random Glucose Calcium B-Natriuretic Peptide 06/06/22 06/06/22 06/06/22 07:27 07:42 07:42 WBC 2.7 L RBC 2.69 L Hgb 8.3 L Hct 24.4 L MCV 90.7 MCH 30.9 MCHC 34.0 RDW 14.4 Plt Count 156 L MPV 9.6 Absolute Nucleated RBC 0.000 Nucleated RBC % (auto) 0.0 Haptoglobin Sodium 136 Potassium 4.4 Chloride 102 Carbon Dioxide 24 Anion Gap 14 BUN 46 H Creatinine 2.53 H Estim Creat Clear Calc 27.2 Estimated GFR 25 POC Glucose 173 H Random Glucose 181 H Calcium 8.2 L B-Natriuretic Peptide 06/06/22 06/06/22 07:42 11:24 WBC RBC Hgb Hct MCV MCH MCHC RDW Plt Count MPV Absolute Nucleated RBC Nucleated RBC % (auto) Haptoglobin Sodium Potassium Chloride Carbon Dioxide Anion Gap BUN Creatinine Estim Creat Clear Calc Estimated GFR POC Glucose 290 H Random Glucose Calcium B-Natriuretic Peptide 197 H Progress Note: A&P Assessment and plan (1) Acute diastolic (congestive) heart failure: Status: Acute (2) Non-rheumatic aortic stenosis: Status: Acute Plan 71-year-old gentleman with severe aortic valve stenosis and acute diastolic heart failure. Clinically he is improving and is euvolemic. His creatinine worsened again after and improvement and I think this should be held today. If creatinine improving tomorrow then he should be started on oral Lasix. Recommend starting him on 80 mg of p.o. Lasix daily. MSSA bacteremia cleared. c/w Abx s/p EGD which showed ulcer which was treated with clips. as per GI can resume anticoagulation. He will need workup for transcatheter valve replacement. Currently with his creatinine fluctuating I think is not safe to give any contrast. I think if his creatinine improves tomorrow then potential discharge home and arrange outpatient left and right heart catheterization and TAVR workup. Thank you for allowing me to participate in the care of your patient. Please feel free to contact me if you have any questions. Time Spent With Patient Time: Total time spent is greater than 50% in coordination of care (as documented) at patient's floor/unit and/or counseling patient: Progress Note: Quality Stroke Does the patient have a stroke diagnosis?: No Procedures Date of Service Date of Service: 06/06/22
[2022-06-06 14:58] VITALS: BP 142/65; PULSE 81; RESP 18; TEMP 36.6; O2SAT 98
[2022-06-06 16:04] LABS: Glucose, Whole Blood 222 mg/dL (60-115)
[2022-06-06 19:03] VITALS: BP 144/63; PULSE 77; RESP 18; TEMP 36.6; O2SAT 98
[2022-06-06 19:40] LABS: Glucose, Whole Blood 186 mg/dL (60-115)
[2022-06-06] MEDS: DAPTOmycin 500 MG in 0.9 % Sodium Chloride 50 ML 120 MG IV (22:03)
[2022-06-06] MEDS: Sennosides 8.6 MG TABLET 17.2 MG PO (22:03)
[2022-06-06] MEDS: Atorvastatin Calcium 20 MG TABLET PO (22:03)
[2022-06-06 23:32] VITALS: BP 121/57; PULSE 60; RESP 17; TEMP 36.7; O2SAT 95
[2022-06-07 03:16] VITALS: BP 138/68; PULSE 62; RESP 16; TEMP 37.3; O2SAT 97
[2022-06-07] MEDS: Omeprazole 40 MG CAPSULE.DR PO (05:40)
[2022-06-07 06:28] LABS: Hematocrit 23.2 % (42.0-52.0); Hemoglobin 8.1 g/dl (14.0-18.0); Mean Corpuscular HGB Conc 34.9 g/dl (31.0-36.0); Mean Corpuscular Hemoglobin 31.3 pg (27.0-33.0); Mean Corpuscular Volume 89.6 fL (80.0-98.0); Mean Platelet Volume 8.9 fL (9.4-12.4); Platelet Count 125 X10*3/uL (160-400); Red Blood Count 2.59 X10*6/uL (4.60-5.80); Red Cell Distribution Width 14.3 % (11.0-16.0)
[2022-06-07 07:04] LABS: Anion Gap 13 (12-20); Blood Urea Nitrogen 45 mg/dL (9-16); Calcium 8.1 mg/dL (8.4-10.2); Carbon Dioxide 23 mmol/L (22-29); Chloride 104 mmol/L (96-108); Creatinine Clr Calc Pharmacy 28.8; Estimated Glomerular Filt Rate 27; Glucose Random 186 mg/dL (60-115); Potassium 4.3 mmol/L (3.3-5.1); Sodium 136 mmol/L (135-145)
[2022-06-07 07:28] VITALS: BP 142/65; PULSE 64; RESP 19; TEMP 36.6; O2SAT 97
[2022-06-07 08:02] LABS: Glucose, Whole Blood 187 mg/dL (60-115)
[2022-06-07] MEDS: Cholecalciferol (Vitamin D3) 25 MCG TABLET PO (08:19)
[2022-06-07] MEDS: Insulin Lispro 100 UNIT/ML 3 ML VIAL SUBCUT (08:19)
[2022-06-07] MEDS: Multivitamin TABLET 1 TAB PO (08:19)
[2022-06-07] MEDS: Sucralfate 1 GM TABLET PO (08:19)
[2022-06-07] MEDS: Docusate Sodium 100 MG CAPSULE PO (08:19)
[2022-06-07] MEDS: Apixaban 5 MG TABLET PO (08:20)
[2022-06-07] MEDS: Tacrolimus 1 MG CAPSULE PO (08:20)
[2022-06-07] MEDS: cloNIDine HCL 0.1 MG TABLET PO (08:21)
[2022-06-07] MEDS: amLODIPine Besylate 10 MG TABLET PO (08:21)
--- NOTE | 2022-06-07 10:24 | P.DS_ITS ---
DS: Providers Provider Date of Service: 06/07/22 Date of admission: 06/02/22 21:19 Primary care physician: Sherif Oconnor III, MD Consults: 06/02/22 19:19 Consult to Infectious Diseases Stat Consulting Provider: Belkis Healy Reason for consultation: bacteremia Has provider been notified: No 06/02/22 21:24 Consult to Gastroenterology Routine Consulting Provider: Shari Chapin Reason for consultation: heme pos stool, drop in hemaglobin Has provider been notified: No 06/02/22 21:43 Consult to Cardiology Routine Consulting Provider: Ismael oClon Reason for consultation: CHF, severe Has provider been notified: No 06/03/22 11:21 Consult to Nephrology Routine Consulting Provider: Santiago Diaz Reason for consultation: ZOILA in transplant kidney Has provider been notified: No DS: Diagnosis Discharge Diagnosis (1) Acute diastolic (congestive) heart failure: Status: Acute (2) Non-rheumatic aortic stenosis: Status: Acute (3) Staphylococcus aureus bacteremia: Status: Acute (4) Duodenal ulcer: Status: Acute (5) Acute blood loss anemia: Status: Acute (6) ZOILA (acute kidney injury): Status: Acute (7) Gastrointestinal bleed: Status: Acute (8) Osteomyelitis: Status: Acute (9) PAF (paroxysmal atrial fibrillation): Status: Acute DS: Summary Hospital Course Hospital Course: Admission note HPI 71 year old pt history significant for non-alcoholic cirrhosis s/p liver transplant 5 years ago on tacrolimas, noninsulin dependent type 2 diabetes, hld, osteomyelitis spine with recent admission 05/22-05/25 for osteomyelitis of the spine with bacteremia with PICC in place for IV daptomycin with echo at that time showing severe aortic stenosis and new atrial fibrillation started on eliquis. During hospitaliation thought to have history of GI bleed with chronic anemia. EGD did not show any active bleed, just chronic ulcers. He was seen this morning by Dr. Palacios for hospital follow up complaining of tello and orthopnea ongoing since discharge and BLE ongoing x 1day. Labs ordered by card this am showed ZOILA with creat 2.89 (baseline 1.38 at discharge) and BUN 59 (baseline 21 on discharge). In ED, minimal improvement in creat and BUN to 2.72 and 60. BNP 296. H/H 7.7/22.3% (drop from 8.4/24.4% this morning). Iron 36, TIBC 206. Heme positive stool. EKG not available. Echo from 05/22 with hyperdynamic left ventricular systolic function with EF >70%. Widely variable gradients in valve area d/t afib with possible severe . No vegetation seen. CXR today with blunted posterior right costophrenic angle suspicious for trace right pleural effusion. Vitals stable. Patient complaining of midline low back pain and right flank pain consistent with pain r/t osteomyelitis. No dysuria, hematuria, increased frequency of urination. No n/v, abdominal pain, melena, hematochezia. No palpitations or cp. Hospital course The patient was admitted for evaluation of difficulty breathing and evidence of bleeding. Referred from license and permit specialist as abnormal labs. Noted to have a drop in his hemoglobin requiring gastrointestinal evaluation with endoscopy that showed an evidence of duodenal ulcer requiring 2 clips and 1 stomach ulcer requiring 1 clip. No further bleeding noticed after that event as Eliquis and aspirin were held for 48 hours before restarting. No evidence of bleeding or drop in hemoglobin after that event. Treated with IV pantoprazole and Carafate. Will be discharged on omeprazole 40 b.i.d. and Carafate 1 g b.i.d.. Hemoglobin stable at 8.1 at the day of discharge. Noted to have acute kidney injury on top of CKD creatinine worsened at time of presentation from baseline. Believed to be secondary to acute diastolic heart failure. Responded well to IV Lasix as creatinine trended down to 2.1 at the day of discharge. Followed by Nephrology team as kidney ultrasound came back negative. IgA still pending at the time of discharge and will be followed as outpatient with Nephrology. Evaluated by Cardiology team with evidence of acute new onset diastolic heart failure noted. Echo was done showing EF of more than 70% with elevated pressures and severe aortic stenosis. Treated with IV Lasix with good response. Do a GI recommended outpatient follow-up for left and right angiogram with further evaluation for TAVR procedure. Asked to remain on water restricted diet. Cardiology suggested follow-up as outpatient as kidney function improved and arrange outpatient left and right heart catheterization and TAVR workup. Lasix increased to 80 mg daily at time of discharge. Daptomycin was resumed as treatment of MSSA bacteremia secondary to osteomyelitis. Evaluated by Infectious Disease who recommended to continue daptomycin until June 30. PICC line in place at the time of discharge and he will be followed by visiting nurses. Water restriction to 1.5 L a day of fluids Lasix increased to 80 mg daily Restart Eliquis at home Start Carafate twice Daily Monitor your weight at home To follow up with Cardiology and Nephrology as outpatient To repeat blood work next week Continue daptomycin until June 30 to finish treatment for bacteremia Please come back to the hospital for any evidence of bleeding, worsening shortness of breath or edema. Time Spent with Patient Time attestation: Total time spent providing and/or coordinating discharge services: Discharge coordination time: Greater than 30 minutes Quality: Safe Use of Opioids Does Pt have an Active Cancer Diagnosis on the Problem List?: No Quality: Stroke Does the patient have a stroke diagnosis?: No Physical Exam Vital Signs: Vital Signs: Last Vital Signs Temp 97.8 F 06/07/22 07:28 Pulse 64 06/07/22 07:28 Resp 19 06/07/22 07:28 BP 142/65 H 06/07/22 07:28 Pulse Ox 97 06/07/22 07:28 O2 Del Method 06/07/22 07:28 BMI result Body Mass Index 42.3 Const: Other: Constitutional : Alert, oriented, not in distress Neck : Normal inspection, Supple Cardiovascular : RRR, no JVP, +1 bilateral lower extremity edema, murmur Respiratory : fair bilateral air entry, no crackles, wheezes or rhonchi Gastrointestinal: soft, lax, Normal bowel sounds, Non tender Skin : Warm, Dry Neurological : Alert & oriented x3, No focal deficit DS: Data Data Completed and Pending Completed studies during hospitalization [Text1]: Procedures Excision of Duodenum, Via Natural or Artificial Opening Endoscopic, Diagnostic (05/22/22) Excision of Stomach, Pylorus, Via Natural or Artificial Opening Endoscopic, Diagnostic (05/22/22) Insertion of Infusion Device into Superior Vena Cava, Percutaneous Approach (05/22/22) Ultrasonography of Superior Vena Cava, Guidance (05/22/22) Labs on day of discharge: Laboratory Results - last 24 hr 06/06/22 06/06/22 06/06/22 11:24 15:58 19:35 WBC RBC Hgb Hct MCV MCH MCHC RDW Plt Count MPV Absolute Nucleated RBC Nucleated RBC % (auto) Sodium Potassium Chloride Carbon Dioxide Anion Gap BUN Creatinine Estim Creat Clear Calc Estimated GFR POC Glucose 290 H 222 H 186 H Random Glucose Calcium 06/07/22 06/07/22 06/07/22 06:14 06:14 07:30 WBC 3.0 L RBC 2.59 L Hgb 8.1 L Hct 23.2 L MCV 89.6 MCH 31.3 MCHC 34.9 RDW 14.3 Plt Count 125 L MPV 8.9 L Absolute Nucleated RBC 0.000 Nucleated RBC % (auto) 0.0 Sodium 136 Potassium 4.3 Chloride 104 Carbon Dioxide 23 Anion Gap 13 BUN 45 H Creatinine 2.39 H Estim Creat Clear Calc 28.8 Estimated GFR 27 POC Glucose 187 H Random Glucose 186 H Calcium 8.1 L Preliminary micro results at discharge 06/03/22 18:01 Blood Culture - Preliminary Blood - Venous No growth after 48 hours. 06/03/22 18:01 Blood Culture - Preliminary Blood - Venous No growth after 48 hours. Discharge Plan Discharge Patient Disposition: Home Health Service Discharge Diagnosis: Acute diastolic heart failure Acute kidney injury Gastrointestinal bleed, duodenal ulcer Referrals: [facility] [Other] - 1 Week [facility] [Outside] - 1 Week Sherif Oconnor III, MD [Primary Care Provider] - 1 Week Discharge Medications: New sucralfate 1 gram Tablet 1 g PO BIDAC Qty: 60 0RF furosemide 80 mg tablet 80 mg PO QAM Qty: 30 0RF Continued multivitamin Tablet 1 tab PO DAILY sennosides [senna] 8.6 mg Tablet 17.2 mg PO BEDTIME ascorbic acid (vitamin C) [Vitamin C] 500 mg Tablet 500 mg PO DAILY docusate sodium [Colace] 100 mg Capsule 100 mg PO BID cholecalciferol (vitamin D3) [Vitamin D3] 25 mcg (1,000 unit) Tablet 25 mcg PO DAILY omeprazole 20 mg Capsule,Delayed Release(Dr/Ec) 20 mg PO BID@0630,1630 Qty: 60 0RF Eliquis 5 mg Tablet 5 mg PO BID Qty: 60 0RF daptomycin 500 mg recon soln 500 mg IV Q24H 42 Days Qty: 10 0RF Rx Instructions: administer over 30 mins amlodipine 10 mg tablet 10 mg PO DAILY atorvastatin 20 mg tablet 20 mg PO BEDTIME clonidine HCl 0.1 mg tablet 0.1 mg PO BID lisinopril 2.5 mg tablet 2.5 mg PO DAILY repaglinide 0.5 mg tablet 0.5 mg PO TIDAC Januvia 50 mg tablet 50 mg PO DAILY tacrolimus 1 mg capsule 1 mg PO BID Discontinued furosemide [Lasix] 40 mg tablet 40 mg PO DAILY Qty: 90 3RF Discharge Orders: Discharge Order (Routine); Ordered 06/07/22 Ordered By: Flaco Mclean Diet: Low salt diet Activity on Discharge: As tolerated Stand Alone Forms: Patient Portal Discharge page Other Ambulatory Orders: Basic Metabolic Panel (Routine) Timeframe: 3 Days Facility: [facility] - Location: Laboratory Ordered By: Flaco Mclean Complete Blood Count no Diff (Routine) Timeframe: 3 Days Facility: [facility] - Location: Laboratory Ordered By: Flaco Mclean Care Plan Goals: Read below Health Concerns: Read below Plan of Treatment: Read below Assessment: You were admitted to the hospital for evaluation of difficulty breathing and gastrointestinal bleeding. Evaluated by chief ultrasound technologist who did an upper endoscopy showing an evidence of duodenal ulcer with 2 clips placed. You were given of the blood thinners for 48 hours before starting get maintaining your blood level above 8 with no evidence of recurrent bleeding. Treated for heart failure exacerbation with IV Lasix with good response over the course as you were monitored by license and permit specialist who recommended outpatient follow- up for further evaluation and treatment plan of PCP or tick stenosis. Noted to have acute kidney injury at time of presentation evaluated by Nephrol sergio team. Improved with treatment of heart failure. Water restriction to 1.5 L a day of fluids Lasix increased to 80 mg daily Restart Eliquis at home Start Carafate twice Daily Monitor your weight at home To follow up with Cardiology and Nephrology as outpatient To repeat blood work next week Continue daptomycin until June 30 to finish treatment for bacteremia Please come back to the hospital for any evidence of bleeding, worsening shortness of breath or edema.
--- NOTE | 2022-06-07 10:27 | W.MHC.F2F ---
Service Date Service Date: 06/07/22 Encounter Date of encounter: 06/07/22 Reasons for Services Signs and symptoms assessed: Acute heart failure exacerbation Reason for care home: medication treatment and teach disease management Homebound: Leaving the home is medically contraindicated at this time without the asist of a device and/or another person due th the listed conditions above and below. Reason homebound: other Certification: Based on the above findings, I certify that this patient is confined to the home and needs intermittent care home care, physical therapy and/or speech therapy, or continues to need occupational therapy. The patient is under my care, and I have initiated the establishment of the plan of care. The patient will be followed by a physician who will periodically review the plan of care.
--- NOTE | 2022-06-07 10:51 | MHC.CM.PN ---
Patient has been medically cleared for dc to home today, with services. Patient was active with Leda MENENDEZ & Jeannine NICOLE, both of whom have been notified of today's dc.
--- NOTE | 2022-06-07 11:19 | PM.PNCARD ---
Subjective Subjective Date of Service: 06/07/22 Interval history: Seen and examined at bedside. Feeling better. Physical Exam Vital Signs: Last Vital Signs Temp 97.8 F 06/07/22 07:28 Pulse 64 06/07/22 07:28 Resp 19 06/07/22 07:28 BP 142/65 H 06/07/22 07:28 Pulse Ox 97 06/07/22 07:28 O2 Del Method 06/07/22 07:28 BMI result Body Mass Index 42.3 GENERAL APPEARANCE: in no acute distress. NECK: no carotid bruit, no significant JVD. SKIN: no suspicious lesions, warm and dry. HEART: ESM aortic area, no 2nd heart sound, regular rate and rhythm. LUNGS: clear to auscultation bilaterally. ABDOMEN: soft, nontender. EXTREMITIES: Mild edema left ankle. One to 2+ edema right lower extremity which is chronic PERIPHERAL PULSES: equal. NEUROLOGIC: AAO x 3 Objective Labs and Meds Result diagrams: 06/07/22 06:14 06/07/22 06:14 Lab results: Laboratory Results - last 24 hr 06/06/22 06/06/22 06/06/22 11:24 15:58 19:35 WBC RBC Hgb Hct MCV MCH MCHC RDW Plt Count MPV Absolute Nucleated RBC Nucleated RBC % (auto) Sodium Potassium Chloride Carbon Dioxide Anion Gap BUN Creatinine Estim Creat Clear Calc Estimated GFR POC Glucose 290 H 222 H 186 H Random Glucose Calcium 06/07/22 06/07/22 06/07/22 06:14 06:14 07:30 WBC 3.0 L RBC 2.59 L Hgb 8.1 L Hct 23.2 L MCV 89.6 MCH 31.3 MCHC 34.9 RDW 14.3 Plt Count 125 L MPV 8.9 L Absolute Nucleated RBC 0.000 Nucleated RBC % (auto) 0.0 Sodium 136 Potassium 4.3 Chloride 104 Carbon Dioxide 23 Anion Gap 13 BUN 45 H Creatinine 2.39 H Estim Creat Clear Calc 28.8 Estimated GFR 27 POC Glucose 187 H Random Glucose 186 H Calcium 8.1 L Imaging Radiologist's impression: Impressions Renal Ultrasound 06/06/22 14:08 IMPRESSION: Previously seen parapelvic possible hyperdense cyst not well visualized on ultrasound examination. Simple left midpole renal cyst measuring 1.3 cm. Findings are not clinically significant and no dedicated follow up imaging is recommended. No hydronephrosis. Progress Note: A&P Assessment and plan (1) Acute diastolic (congestive) heart failure: Status: Resolved (2) Non-rheumatic aortic stenosis: Status: Inactive Plan 71-year-old gentleman with severe aortic valve stenosis and acute diastolic heart failure. Clinically he is improving and is euvolemic. Creatinine improving. Resume PO Lasix. MSSA bacteremia cleared. c/w Abx s/p EGD which showed ulcer which was treated with clips. as per GI can resume anticoagulation. He will need workup for transcatheter valve replacement. Currently with his creatinine fluctuating I think is not safe to give any contrast. Home and cinic follow up and further work up as outpaatient. Thank you for allowing me to participate in the care of your patient. Please feel free to contact me if you have any questions. Time Spent With Patient Time: Total time spent is greater than 50% in coordination of care (as documented) at patient's floor/unit and/or counseling patient: Progress Note: Quality Stroke Does the patient have a stroke diagnosis?: No Procedures Date of Service Date of Service: 06/07/22
--- NOTE | 2022-06-07 12:04 | P.PNNP_ITS ---
Subjective Subjective Date of Service: 06/07/22 Interval history: the patient was seen and evaluated this morning Sitting in chair Hemoglobin stable 8.1 Creatinine 2.4 Systemic review: No fever, chills but reporting generalized weakness No chest pain, palpitation but has edema in lower extremities that is improving Physical Exam Vital Signs: Vital Signs: Last Vital Signs Temp 97.8 F 06/07/22 07:28 Pulse 64 06/07/22 07:28 Resp 19 06/07/22 07:28 BP 142/65 H 06/07/22 07:28 Pulse Ox 97 06/07/22 07:28 O2 Del Method 06/07/22 07:28 BMI result Body Mass Index 42.3 Const: Other: Constitutional : Alert, oriented, not in distress Neck : Normal inspection, Supple Cardiovascular : RRR, no JVP, +1 bilateral lower extremity edema, murmur Respiratory : fair bilateral air entry, no crackles, wheezes or rhonchi Gastrointestinal: soft, lax, Normal bowel sounds, Non tender Skin : Warm, Dry Neurological : Alert & oriented x3, No focal deficit General: cooperative and no acute distress Orientation/consciousness: patient oriented x3 Limi tations: No language barrier HEENT: Head: Yes normal to inspection Face and sinus: Yes normal facial exam Mouth: Normal oral and palatal mucosa present Teeth and gingiva: dentition normal Eyes: General: appearance normal, both eyes and all related structures Pupils: Equal, round and reactive pupils present EOM: EOMs intact bilaterally Neck: Neck: Yes supple Resp: Effort & Inspection: normal respiratory effort Auscultation: diminished lung sounds Cardio: Rate: regular rate Rhythm: regular rhythm Heart sounds: Murmur heart sound present (3/6 RAYNA) GI: Palpation (GI): Soft to palpation and nontender : General: Yes no CVA tenderness Back/Spine/Pelvis: Back: no CVA tenderness Skin: General skin exam: no rashes or lesions noted Neuro: General: patient oriented x3 and moves all extremities Cranial nerves: Yes Equal, round and reactive pupils present Extrem: General: Yes normal to inspection and Yes pedal edema Psych: Appearance: grossly normal Objective Data Labs CBC & Chem 7: 06/07/22 06:14 06/07/22 06:14 Labs: Laboratory Results - last 24 hr 06/06/22 06/06/22 06/07/22 15:58 19:35 06:14 WBC 3.0 L RBC 2.59 L Hgb 8.1 L Hct 23.2 L MCV 89.6 MCH 31.3 MCHC 34.9 RDW 14.3 Plt Count 125 L MPV 8.9 L Absolute Nucleated RBC 0.000 Nucleated RBC % (auto) 0.0 Sodium Potassium Chloride Carbon Dioxide Anion Gap BUN Creatinine Estim Creat Clear Calc Estimated GFR POC Glucose 222 H 186 H Random Glucose Calcium 06/07/22 06/07/22 06:14 07:30 WBC RBC Hgb Hct MCV MCH MCHC RDW Plt Count MPV Absolute Nucleated RBC Nucleated RBC % (auto) Sodium 136 Potassium 4.3 Chloride 104 Carbon Dioxide 23 Anion Gap 13 BUN 45 H Creatinine 2.39 H Estim Creat Clear Calc 28.8 Estimated GFR 27 POC Glucose 187 H Random Glucose 186 H Calcium 8.1 L Microbiology Microbiology Results: Microbiology 06/03/22 18:01 Blood - Venous Blood Culture - Preliminary No growth after 48 hours. 06/03/22 18:01 Blood - Venous Blood Culture - Preliminary No growth after 48 hours. Procedures Date of Service Date of Service: 06/07/22 Assessment & Plan Assessment and plan (1) Non-rheumatic aortic stenosis: Status: Acute (2) Staphylococcus aureus bacteremia: Status: Acute (3) ZOILA (acute kidney injury): Status: Acute (4) CKD (chronic kidney disease) stage 3, GFR 30-59 ml/min: Status: Acute (5) Liver transplant recipient: Status: Acute Plan 71-year-old gentleman with severe aortic valve stenosis and acute diastolic heart failure. ZOILA on CKD. On CNI for liver transplant. HF better, some edema but creat up with diuresis. Staph bacteremia has cleared. Needs TAVR at some point. Wants local followup with Nephrology which we will arrange at discharge. Has pancytopenia and may benefit from Procrit as outpt. Will need diuretic at discharge: 60 bid of furosemide Will arrange renal f/u and procrit at discharge Time Spent With Patient Time: Total time spent is greater than 50% in coordination of care (as documented) at patient's floor/unit and/or counseling patient: Progress Note: Quality Stroke Does the patient have a stroke diagnosis?: No
[2022-06-07 13:45] VITALS: BP 155/70; PULSE 75; RESP 18; TEMP 36.6; O2SAT 99
[2022-06-07] MEDS: Heparin Sodium,Porcine Flush 50 UNITS/5 ML SYRINGE IVFLUSH (13:49)
[2022-06-07] MEDS: Furosemide 40 MG/4 ML VIAL IVPUSH (13:49)
[2022-06-09 04:36] LABS: Immunoglobulin A 668 mg/dL (70-320)
[2022-06-11 19:02] LABS: Prot Elec - Albumin 2.6 g/dL (3.8-4.8); Prot Elec - Alpha1 0.3 g/dL (0.2-0.3); Prot Elec - Alpha2 0.6 g/dL (0.5-0.9); Prot Elec - Beta 1 0.4 g/dL (0.4-0.6); Prot Elec - Beta 2 0.4 g/dL (0.2-0.5); Prot Elec - Gamma 1.9 g/dL (0.8-1.7); Prot Elec - Total Protein 6.2 g/dL (6.1-8.1)
== END 2022-06-07 14:30 | disposition home health service (06) | DRG 194 ==
LOC: HO.ED 21:04 → HO.EDOVER 21:31 → HO.IMC 06-03 18:12
PROVIDERS: Internal Medicine Gastroenterology; Physician Assistant; Admitting Provider Physician Assistant; Emergency Provider Emergency Medicine; PCP Internal Medicine; Visit Provider Student in an Organized Health Care Education/Training Program
PROC: 0DJ08ZZ Inspection of Upper Intestinal Tract, Via Natural or Artificial Opening Endoscopic (ICD-10-PCS; CPT 43235; principal; 2022-06-04 15:20)
DX: I13.0 Hypertensive heart and chronic kidney disease with heart failure and stage 1 through stage 4 chronic kidney disease, or unspecified chronic kidney disease (principal); K26.4 Chronic or unspecified duodenal ulcer with hemorrhage; K20.91 Esophagitis, unspecified with bleeding; N17.9 Acute kidney failure, unspecified; R78.81 Bacteremia; K29.71 Gastritis, unspecified, with bleeding; D84.821 Immunodeficiency due to drugs; D63.1 Anemia in chronic kidney disease; D62 Acute posthemorrhagic anemia; I50.31 Acute diastolic (congestive) heart failure; M46.26 Osteomyelitis of vertebra, lumbar region; Z94.4 Liver transplant status; E11.22 Type 2 diabetes mellitus with diabetic chronic kidney disease; N10 Acute pyelonephritis; E11.69 Type 2 diabetes mellitus with other specified complication; I35.0 Nonrheumatic aortic (valve) stenosis; B95.61 Methicillin susceptible Staphylococcus aureus infection as the cause of diseases classified elsewhere; N18.30 Chronic kidney disease, stage 3 unspecified; I48.0 Paroxysmal atrial fibrillation; E78.00 Pure hypercholesterolemia, unspecified; Z20.822 Contact with and (suspected) exposure to COVID-19; Z79.01 Long term (current) use of anticoagulants; Z91.010 Allergy to peanuts; Z88.6 Allergy status to analgesic agent; Z79.899 Other long term (current) drug therapy
CPT/HCPCS: 36415; 71046; 76775; 80048; 80076; 80197; 81001; 82272; 82550; 82784; 82803; 82947; 83010; 83540; 83615; 83735; 83880; 83935; 84165; 84300; 84484; 85025; 85027; 85045; 86850; 86900; 86901; 86923; 87040; 87635; 93005; 93306; 97161; 99285; C1758; J0878; J1642; J1940; J2370; P9016; Q9957

== ENCOUNTER 2022-06-09 07:20 | Inpatient (IN) | payer OTHER, SELFPAY ==
--- NOTE | ~2022-06-09 | XR_ITS ---
EXAMINATION: XR CHEST CLINICAL INFORMATION: Shortness of breath. COMPARISON: 06/02/2022 chest radiographs. TECHNIQUE: Frontal view of the chest was obtained. FINDINGS: Support devices: Right-sided PICC with tip terminating in the superior vena cava. No significant abnormality is noted involving the heart, lungs, mediastinum, bony thorax or soft tissues. XR/XR chest 1V IMPRESSION: No acute cardiopulmonary process.
[2022-06-09 07:23] VITALS: BP 141/64; PULSE 86; RESP 18; TEMP 36.9; O2SAT 98; BMI 40.6
--- NOTE | 2022-06-09 08:18 | ED_ITS ---
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 Reports associated nausea, vomiting, and mild lightheadedness. Did recently restart his Eliquis on hospital discharge, Wednesday. States rolled over in bed may have hit nose on something, denies fall, nose picking, headache, CP/SOB Related Data Home Medications Medication Instructions Recorded Confirmed ascorbic acid (vitamin C) 500 mg 500 mg PO DAILY 05/19/22 06/09/22 tablet (Vitamin C) cholecalciferol (vitamin D3) 25 25 mcg PO DAILY 05/19/22 06/09/22 mcg (1,000 unit) tablet (Vitamin D3) docusate sodium 100 mg capsule 100 mg PO BID 05/19/22 06/09/22 (Colace) multivitamin 1 tab PO DAILY 05/19/22 06/09/22 sennosides 8.6 mg tablet (senna) 17.2 mg PO BEDTIME 05/19/22 06/09/22 amlodipine 10 mg tablet 10 mg PO DAILY 06/02/22 06/09/22 atorvastatin 20 mg tablet 20 mg PO BEDTIME 06/02/22 06/09/22 clonidine HCl 0.1 mg tablet 0.1 mg PO BID 06/02/22 06/09/22 lisinopril 2.5 mg tablet 2.5 mg PO DAILY 06/02/22 06/09/22 repaglinide 0.5 mg tablet 0.5 mg PO TIDAC 06/02/22 06/09/22 sitagliptin 50 mg tablet (Januvia) 50 mg PO DAILY 06/02/22 06/09/22 tacrolimus 1 mg capsule, 1 mg PO BID 06/02/22 06/09/22 immediate-release furosemide 80 mg tablet 40 mg PO DAILY 06/09/22 06/09/22 Previous Rx's Medication Instructions Recorded apixaban 5 mg tablet (Eliquis) 5 mg PO BID #60 tabs 05/25/22 daptomycin 500 mg intravenous 500 mg IV Q24H 6 weeks #10 ea 05/25/22 solution omeprazole 20 mg capsule,delayed 20 mg PO BID@0630,1630 #60 caps 05/25/22 release sucralfate 1 gram tablet 1 g PO BIDAC #60 tabs 06/07/22 Allergies Allergy/AdvReac Type Severity Reaction Status Date / Time ibuprofen [IBUPROFEN] Allergy Severe SWELLING Verified 06/02/22 14:39 peanut [PEANUTS] Allergy Unknown SWELLING Verified 06/02/22 14:39 Review of Systems Review of Systems: Constitutional: No Fever, No Chills, No Fatigue, No Malaise ENT/Mouth:No Ear Pain, No Nasal Congestion,+epistaxis, No Sinus Pain, No Hoarseness, No sore throat, No Rhinorrhea, No Swallowing Difficulty Eyes: No Eye Pain, No Swelling, No Redness, No Vision Changes Cardiovascular: No Chest Pain, No SOB, No Edema, No Palpitations Respiratory: No Cough, No Sputum, No Wheezing, No Dyspnea Gastrointestinal: + Nausea, + Vomiting, No Diarrhea, No Constipation, No Abdominal pain Musculoskeletal: No joint pain, No Myalgias, No Joint Swelling Skin: No Skin Lesions, No rash Neuro: No Weakness, No Loss of Consciousness, + mild lightheadedness, No Headache Yes all other systems are reviewed and are negative Constitutional: Constitutional: Reports as per [facility] Past Medical History Attestation statement: The following information was validated with the patient. Medical History Acute diastolic (congestive) heart failure Aortic stenosis Diabetes Duodenitis Fatty liver GERD (gastroesophageal reflux disease) Gram-positive bacteremia Hypercholesteremia Hypertension Non-rheumatic aortic stenosis Osteomyelitis PAF (paroxysmal atrial fibrillation) Surgical History History of back surgery Hx of colonoscopy Hx of lymph node excision Liver transplant recipient Family History Family History Mother Myocardial infarct Social History Social History Household Members: Spouse and Children Housing: House Do you presently have visiting nurse or other home services: Yes (picc line antibiotics) Patient Tobacco Use Status: Never used Tobacco Use of substances other than those prescribed or required for medical reasons: No Advance Directives: Yes Advance Directives on File: Yes Advance Directives Date on File: 05/19/22 service: No Current occupational status: retired Physical Exam ED Vital Signs: Vital Signs - 24 hr 06/09/22 07:23 06/09/22 11:35 Temperature 98.4 F Pulse Rate 86 79 Respiratory Rate 18 16 Blood Pressure 141/64 H 139/68 Pulse Oximetry 98 99 Oxygen Delivery Method Room Air Room Air BMI result Body Mass Index 40.6 Const General: cooperative, healthy appearing and no acute distress Orientation/consciousness: patient oriented x3 Limitations: no limitations HENMT Head: Yes normal to inspection and Yes atraumatic Ears: hearing grossly normal bilaterally General nose exam: Normal external nose present and Epistaxis present on the right anterior source, active bleeding and source not visualized Face and sinus: Yes normal facial exam Mouth: Normal oral and palatal mucosa present and no muffled voice Throat: Yes posterior oropharynx normal, Yes tonsils normal, Yes uvula midline, No peritonsillar mass, No postnasal drainage and No uvular edema Eyes General: appearance normal, both eyes and all related structures EOM: EOMs intact bilaterally Neck Neck: Yes normal visual inspection and Yes no meningeal signs Resp Effort & Inspection: normal respiratory effort and no respiratory distress Cardio Rate: regular rate Heart sounds: S1 normal heart sound present and S2 normal heart sound present GI Inspection: Yes normal to inspection Palpation (GI): Soft to palpation General: Yes no CVA tenderness Back/Spine/Pelvis Back: no CVA tenderness Skin Rashes: no rashes Wounds: no wounds Neuro General: patient oriented x3, tone normal and no meningeal signs Gait exam (Neuro): Normal gait present Course Course Course Narrative: -0910--patient still with slow bleed at after Afrin/direct pressure. Packed with TXA soaked gauze and direct pressure, will re-evaluate in 10-15mins -large clot dislodged after TXA cotton ball removed. No active bleeding kendall reciated. 0945--cauterize interior visible bleeding site > will observe -cauterization unsuccessful, anterior rhino rocket placed with positive results -chronic leukopenia. H&H at patient's baseline. Acute on chronic worsening CKD > likely from Lasix vs CHF > patient became notably SOB with small repositioning in stretcher. Chronic pedal edema. Additional labs added. Plan will be for admission -1055--[place] [address] > will start gentle IVF. Likely from Daptomycin. 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 On exam vital signs stable, NAD, nontoxic appearing, active epistaxis noted from right nare. No appreciable posterior oropharyngeal bleeding. Concern for anemia. Plan: Direct pressure followed by Luis Fernando and direct pressure Medical Records Medical records reviewed: Yes I reviewed the patient's medical records. Lab Data Lab results reviewed: Yes I reviewed the patient's lab results. Result diagrams: 06/09/22 08:48 06/09/22 08:48 Labs: Lab Results 06/09/22 06/09/22 06/09/22 Range/Units 08:48 08:48 08:48 WBC 3.2 L (4.8-10.8) X10*3/uL RBC 2.67 L (4.60-5.80) X10*6/uL Hgb 8.4 L (14.0-18.0) g/dl Hct 24.5 L (42.0-52.0) % MCV 91.8 (80.0-98.0) fL MCH 31.5 (27.0-33.0) pg MCHC 34.3 (31.0-36.0) g/dl RDW 14.6 (11.0-16.0) % Plt Count 134 L (160-400) X10*3/uL MPV 9.6 (9.4-12.4) fL Immature Gran % (Auto) 0.6 H (0.0-0.4) % Neut % (Auto) 57.1 (45-73) % Lymph % (Auto) 32.5 (20-40) % [place] % (Auto) 7.4 (2-11) % Eos % (Auto) 1.5 (0-4) % Baso % (Auto) 0.9 (0-2) % Lymph # (Auto) 1.1 L (1.2-4.9) X10*3/uL [place] # (Auto) 0.2 (0.1-1.2) X10*3/uL Eos # (Auto) 0.1 (0.0-0.4) X10*3/uL Baso # (Auto) 0.0 (0.0-0.2) X10*3/uL Abs Immat Gran (auto) 0.02 (0.00-0.03) X10*3/uL Absolute Neuts (auto) 1.8 L (2.0-8.3) x10*3/uL Absolute Nucleated RBC 0.000 (0.0-0.012) X10*3/uL Nucleated RBC % (auto) 0.0 (0.0-0.2) /100WBC PT 18.1 H (10.0-13.1) SEC INR 1.6 H (0.9-1.1) Sodium 139 (135-145) mmol/L Potassium 4.7 (3.3-5.1) mmol/L Chloride 104 (96-108) mmol/L Carbon Dioxide 25 (22-29) mmol/L Anion Gap 15 (12-20) BUN 51 H (9-16) mg/dL Creatinine 3.24 H (0.5-1.4) mg/dL Estim Creat Clear Calc 20.8 Estimated GFR 19 Random Glucose 204 H (60-115) mg/dL Calcium 8.4 (8.4-10.2) mg/dL Magnesium 1.6 (1.6-2.6) mg/dL Total Bilirubin 0.9 (0.0-1.0) mg/dL Direct Bilirubin 0.4 (0.0-0.5) mg/dL AST 102 H (5-37) U/L ALT 39 (0-40) U/L Alkaline Phosphatase 89 (39-117) U/L Total Creatine Kinase 1197 H D (38-174) U/L B-Natriuretic Peptide (<100) pg/mL Total Protein 6.7 (6.5-8.0) g/dL Albumin 2.8 L (3.5-5.0) g/dL COVID-19 (JACQUELYN) (Negative) COVID-19 Clin Com 06/09/22 06/09/22 Range/Units 08:48 12:07 WBC (4.8-10.8) X10*3/uL RBC (4.60-5.80) X10*6/uL Hgb (14.0-18.0) g/dl Hct (42.0-52.0) % MCV (80.0-98.0) fL MCH (27.0-33.0) pg MCHC (31.0-36.0) g/dl RDW (11.0-16.0) % Plt Count (160-400) X10*3/uL MPV (9.4-12.4) fL Immature Gran % (Auto) (0.0-0.4) % Neut % (Auto) (45-73) % Lymph % (Auto) (20-40) % [place] % (Auto) (2-11) % Eos % (Auto) (0-4) % Baso % (Auto) (0-2) % Lymph # (Auto) (1.2-4.9) X10*3/uL [place] # (Auto) (0.1-1.2) X10*3/uL Eos # (Auto) (0.0-0.4) X10*3/uL Baso # (Auto) (0.0-0.2) X10*3/uL Abs Immat Gran (auto) (0.00-0.03) X10*3/uL Absolute Neuts (auto) (2.0-8.3) x10*3/uL Absolute Nucleated RBC (0.0-0.012) X10*3/uL Nucleated RBC % (auto) (0.0-0.2) /100WBC PT (10.0-13.1) SEC INR (0.9-1.1) Sodium (135-145) mmol/L Potassium (3.3-5.1) mmol/L Chloride (96-108) mmol/L Carbon Dioxide (22-29) mmol/L Anion Gap (12-20) BUN (9-16) mg/dL Creatinine (0.5-1.4) mg/dL Estim Creat Clear Calc Estimated GFR Random Glucose (60-115) mg/dL Calcium (8.4-10.2) mg/dL Magnesium (1.6-2.6) mg/dL Total Bilirubin (0.0-1.0) mg/dL Direct Bilirubin (0.0-0.5) mg/dL AST (5-37) U/L ALT (0-40) U/L Alkaline Phosphatase (39-117) U/L Total Creatine Kinase (38-174) U/L B-Natriuretic Peptide 305 H (<100) pg/mL Total Protein (6.5-8.0) g/dL Albumin (3.5-5.0) g/dL COVID-19 (JACQUELYN) Negative (Negative) COVID-19 Clin Com See Note Critical Care Time Critical Care Time Critical Care Time: Yes Total Critical Care Time: 35 Attestation: I have personally provided critical care time exclusive of time spent on separately billable procedures. Time includes review of lab data, radiology results, discussion with consultants, and monitoring for potential decompensatio n. Intervention performed as documented. Discharge Plan Discharge Clinical Impression: Rhabdomyolysis, ZOILA (acute kidney injury), Epistaxis Patient Disposition: Admitted As Inpatient
[2022-06-09] MEDS: Tranexamic Acid 1,000 MG/10 ML VIAL 500 MG INTRANASAL (08:48)
[2022-06-09] MEDS: Oxymetazoline HCl 0.05 % Nasal 15 ML SPRAY 2 SPRAY NOSTRIL-B (08:48)
[2022-06-09 09:18] LABS: INTERNATIONAL NORM RATIO 1.6 (0.9-1.1); Prothrombin Time 18.1 SEC (10.0-13.1)
[2022-06-09 09:24] LABS: Basophils Percent Auto 0.9 % (0-2); Eosinophils Absolute Auto 0.1 X10*3/uL (0.0-0.4); Eosinophils Percent Auto 1.5 % (0-4); Hematocrit 24.5 % (42.0-52.0); Hemoglobin 8.4 g/dl (14.0-18.0); Imm Gran Abs Auto 0.02 X10*3/uL (0.00-0.03); Imm Gran Pct Auto 0.6 % (0.0-0.4); Lymphocytes Absolute Auto 1.1 X10*3/uL (1.2-4.9); Lymphocytes Percent Auto 32.5 % (20-40); MANUAL DIFF FLAG NO; Mean Corpuscular HGB Conc 34.3 g/dl (31.0-36.0); Mean Corpuscular Hemoglobin 31.5 pg (27.0-33.0); Mean Corpuscular Volume 91.8 fL (80.0-98.0); Mean Platelet Volume 9.6 fL (9.4-12.4); Monocytes Absolute Auto 0.2 X10*3/uL (0.1-1.2); Monocytes Percent Auto 7.4 % (2-11); Neutrophils Absolute Auto 1.8 x10*3/uL (2.0-8.3); Neutrophils Percent Auto 57.1 % (45-73); Platelet Count 134 X10*3/uL (160-400); Red Blood Count 2.67 X10*6/uL (4.60-5.80); Red Cell Distribution Width 14.6 % (11.0-16.0); White Blood Count 3.2 X10*3/uL (4.8-10.8)
[2022-06-09 10:00] LABS: Anion Gap 15 (12-20); Blood Urea Nitrogen 51 mg/dL (9-16); Calcium 8.4 mg/dL (8.4-10.2); Carbon Dioxide 25 mmol/L (22-29); Chloride 104 mmol/L (96-108); Creatinine Clr Calc Pharmacy 20.8; Estimated Glomerular Filt Rate 19; Glucose Random 204 mg/dL (60-115); Potassium 4.7 mmol/L (3.3-5.1); Sodium 139 mmol/L (135-145)
[2022-06-09] MEDS: Silver Nitrate Applicator STICK..EA. 2 APPL TOPICAL (10:01)
[2022-06-09 10:55] LABS: Alanine Aminotransferase 39 U/L (0-40); Albumin Level 2.8 g/dL (3.5-5.0); Alkaline Phosphatase 89 U/L (39-117); Aspartate Amino Transferase 102 U/L (5-37); Bilirubin Direct 0.4 mg/dL (0.0-0.5); Bilirubin Total 0.9 mg/dL (0.0-1.0); Magnesium 1.6 mg/dL (1.6-2.6); Total Protein 6.7 g/dL (6.5-8.0)
[2022-06-09 10:59] LABS: B Type Natriuretic Peptide 305 pg/mL (<100)
[2022-06-09] MEDS: 0.9 % Sodium Chloride 1,000 ML 75 ML IVCONT (11:34)
[2022-06-09 11:35] VITALS: BP 139/68; PULSE 79; RESP 16; O2SAT 99
--- NOTE | 2022-06-09 11:36 | PC.NURSE ---
Pt alert/oriented. Fluids started to Right PICC line, +blood return. NS at 75ml/hr. Pt denies pain or discomfort. Steady on feet Right nare tamponade in place
--- NOTE | 2022-06-09 11:59 | PHA.MEDREC ---
Pharmacy Consult ? Medication Reconciliation Pharmacy has completed the medication reconciliation. Pt's at bedside with list
[2022-06-09 12:28] LABS: COVID-19 Test Negative (Negative)
[2022-06-09] MEDS: 0.9 % Sodium Chloride 1,000 ML 100 ML IVCONT (13:48)
--- NOTE | 2022-06-09 14:56 | P.HPHOSP_ITS ---
History of Present Illness Date of Service: 06/09/22 Chief Complaint: Epistaxis A 71 years old with PMH significant for non-alcoholic cirrhosis s/p liver transplant 5 years ago on tacrolimas, severe aortic stenosis, noninsulin dependent type 2 diabetes, hld, osteomyelitis spine with recent admission for GI bleed, home going osteomyelitis of the spine with bacteremia PICC in place for IV daptomycin discharge on 06/07 post GI bleed, acute anemia and Zoila I on CKD. who presents to the hospital Today with epistaxis since early interventionist. The patient reports waking up bleeding from his nose. Denies any chest pain, palpitation, hematuria, blood with stool, nausea, vomiting, change in bowel habit or urinary symptoms. Blood work was consistent with Zoila I on CKD along with elevated CPK. Admitted for further evaluation and treatment. Review of Systems Review of Systems: No fever, chills or weakness epistaxis No chest pain, palpitation No shortness of breath or coughing No abdominal pain, nausea or vomiting No urinary symptoms No any rash or wounds PMFSH Medical History Acute diastolic (congestive) heart failure Aortic stenosis Diabetes Duodenitis Fatty liver GERD (gastroesophageal reflux disease) Gram-positive bacteremia Hypercholesteremia Hypertension Non-rheumatic aortic stenosis Osteomyelitis PAF (paroxysmal atrial fibrillation) Family History Mother Myocardial infarct Surgical History History of back surgery Hx of colonoscopy Hx of lymph node excision Liver transplant recipient Social History Household Members: Spouse and Children Housing: House Do you presently have visiting nurse or other home services: Yes (picc line antibiotics) Patient Tobacco Use Status: Never used Tobacco Use of substances other than those prescribed or required for medical reasons: No Advance Directives: Yes Advance Directives on File: Yes Advance Directives Date on File: 05/19/22 service: No Current occupational status: retired Meds Allergies Allergy/AdvReac Type Severity Reaction Status Date / Time ibuprofen [IBUPROFEN] Allergy Severe SWELLING Verified 06/02/22 14:39 peanut [PEANUTS] Allergy Unknown SWELLING Verified 06/02/22 14:39 Active Medications: Current Medications Amlodipine Besylate (Amlodipine Besylate 10 Mg Tablet) 10 mg PO DAILY [facility]; Protocol Clonidine HCl (Clonidine Hcl 0.1 Mg Tablet) 0.1 mg PO BID [facility]; Protocol Docusate Sodium (Docusate Sodium 100 Mg Capsule) 100 mg PO BID [facility] Furosemide (Furosemide 40 Mg Tablet) 40 mg PO DAILY [facility]; Protocol Sodium Chloride (Ns) 1,000 mls @ 75 mls/hr IVCONT .[id number] [facility] Last Infusion: 06/09/22 13:47 Dose: Infused Sodium Chloride (Ns) 1,000 mls @ 100 mls/hr IVCONT .Q10H [facility] Stop: 06/09/22 22:00 Last Admin: 06/09/22 13:48 Dose: 100 mls/hr Insulin Human Lispro (Insulin Lispro 100 Unit/Ml 3 Ml Vial) 0 unit SUBCUT QIDACHS [facility]; Protocol Multivitamins/Vitamin C (Multivitamin Tablet) 1 tab PO DAILY [facility] Omeprazole (Omeprazole 20 Mg Capsule.) 20 mg PO BID@0630,1630 [facility] Ondansetron HCl (Ondansetron Hcl 4 Mg/2 Ml Vial) 4 mg IVPUSH Q8H PRN PRN Reason: Nausea and Vomiting Pharmacy Consult (Consult Rx Perform Med Rec) 1 each MISCELLANE ONCE PRN PRN Reason: Consult order Senna (Sennosides 8.6 Mg Tablet) 17.2 mg PO BEDTIME [facility] Sitagliptin Phosphate (Sitagliptin Phosphate 50 Mg Tablet) 50 mg PO DAILY [facility] Sodium Chloride (0.9 % Sodium Chloride Flush 3 Ml Syringe) 3 ml IVFLUSH QSHIFT [facility] Sucralfate (Sucralfate 1 Gm Tablet) 1 gm PO BIDAC [facility] Tacrolimus (Tacrolimus 1 Mg Capsule) 1 mg PO BID [facility] Vitamin D (Cholecalciferol (Vitamin D3) 25 Mcg Tablet) 25 mcg PO DAILY [facility] Home Medications Medication Instructions Recorded Confirmed Last Taken Type ascorbic acid (vitamin C) 500 mg 500 mg PO DAILY 05/19/22 06/09/22 06/08/22 History tablet (Vitamin C) cholecalciferol (vitamin D3) 25 25 mcg PO DAILY 05/19/22 06/09/22 06/08/22 History mcg (1,000 unit) tablet (Vitamin D3) docusate sodium 100 mg capsule 100 mg PO BID 05/19/22 06/09/22 06/08/22 History (Colace) multivitamin 1 tab PO DAILY 05/19/22 06/09/22 06/08/22 History sennosides 8.6 mg tablet (senna) 17.2 mg PO BEDTIME 05/19/22 06/09/22 06/08/22 History amlodipine 10 mg tablet 10 mg PO DAILY 06/02/22 06/09/22 06/08/22 History atorvastatin 20 mg tablet 20 mg PO BEDTIME 06/02/22 06/09/22 06/08/22 History clonidine HCl 0.1 mg tablet 0.1 mg PO BID 06/02/22 06/09/22 06/08/22 History lisinopril 2.5 mg tablet 2.5 mg PO DAILY 06/02/22 06/09/22 06/08/22 History repaglinide 0.5 mg tablet 0.5 mg PO TIDAC 06/02/22 06/09/22 06/08/22 History sitagliptin 50 mg tablet (Januvia) 50 mg PO DAILY 06/02/22 06/09/22 06/08/22 History tacrolimus 1 mg capsule, 1 mg PO BID 06/02/22 06/09/22 06/08/22 History immediate-release furosemide 80 mg tablet 40 mg PO DAILY 06/09/22 06/09/22 06/08/22 History Physical Exam Vital Signs and Narrative: Vital Signs: Last Vital Signs Temp 98.4 F 06/09/22 07:23 Pulse 79 06/09/22 11:35 Resp 16 06/09/22 11:35 BP 139/68 06/09/22 11:35 Pulse Ox 99 06/09/22 11:35 O2 Del Method 06/09/22 11:35 BMI result Body Mass Index 40.6 Const: Other: Constitutional : Alert, oriented, not in distress Neck : Normal inspection, Supple Head: Throat with no active bleeding, Right nostril bleeding with anterior rhino rocket placed with positive results Cardiovascular : RRR, no JVP, +1 bilateral lower extremity edema, murmur Respiratory : fair bilateral air entry,? no crackles, wheezes or rhonchi Gastrointestinal:? soft, lax, Normal bowel sounds, Non tender Skin : Warm, Dry Neurological : Alert & oriented x3, No focal deficit Results Labs CBC and Chem 7: 06/09/22 08:48 06/09/22 08:48 Labs: Laboratory Results - last 24 hr 06/09/22 06/09/22 06/09/22 08:48 08:48 08:48 MCV 91.8 MCH 31.5 MCHC 34.3 RDW 14.6 Plt Count 134 L MPV 9.6 Immature Gran % (Auto) 0.6 H Neut % (Auto) 57.1 Lymph % (Auto) 32.5 Bowie % (Auto) 7.4 Eos % (Auto) 1.5 Baso % (Auto) 0.9 Lymph # (Auto) 1.1 L Bowie # (Auto) 0.2 Eos # (Auto) 0.1 Baso # (Auto) 0.0 Abs Immat Gran (auto) 0.02 Absolute Neuts (auto) 1.8 L Absolute Nucleated RBC 0.000 Nucleated RBC % (auto) 0.0 PT 18.1 H INR 1.6 H Anion Gap 15 Estim Creat Clear Calc 20.8 Estimated GFR 19 Random Glucose 204 H Calcium 8.4 Magnesium 1.6 Total Bilirubin 0.9 Direct Bilirubin 0.4 AST 102 H ALT 39 Alkaline Phosphatase 89 Total Creatine Kinase 1197 H D B-Natriuretic Peptide Total Protein 6.7 Albumin 2.8 L COVID-19 (JACQUELYN) COVID-19 Clin Com 06/09/22 06/09/22 08:48 12:07 MCV MCH MCHC RDW Plt Count MPV Immature Gran % (Auto) Neut % (Auto) Lymph % (Auto) [place]ie % (Auto) Eos % (Auto) Baso % (Auto) Lymph # (Auto) [place]ie # (Auto) Eos # (Auto) Baso # (Auto) Abs Immat Gran (auto) Absolute Neuts (auto) Absolute Nucleated RBC Nucleated RBC % (auto) PT INR Anion Gap Estim Creat Clear Calc Estimated GFR Random Glucose Calcium Magnesium Total Bilirubin Direct Bilirubin AST ALT Alkaline Phosphatase Total Creatine Kinase B-Natriuretic Peptide 305 H Total Protein Albumin COVID-19 (JACQUELYN) Negative COVID-19 Clin Com See Note Imaging Radiologist's Impressions: Impressions Chest X-Ray 06/09/22 10:54 IMPRESSION: No acute cardiopulmonary process. Assessment and Plan (1) Rhabdomyolysis: Status: Acute (2) Epistaxis: Status: Acute (3) ZOLIA (acute kidney injury): Status: Acute (4) Staphylococcus aureus bacteremia: Status: Acute Plan A 71 years old with PMH significant for non-alcoholic cirrhosis s/p liver transplant 5 years ago on tacrolimas, severe aortic stenosis, noninsulin dependent type 2 diabetes, hld, osteomyelitis spine with recent admission for GI bleed, home going osteomyelitis of the spine with bacteremia PICC in place for IV daptomycin discharge on 06/07 post GI bleed, acute anemia and Zoila I on CKD. who presents to the hospital Today with epistaxis. - epistaxis Right nostril bleeding with anterior rhino rocket placed Afrin as needed hold Eliquis - diastolic heart failure Not in exacerbation Hold Lasix due to Zoila I Echo showed EF more than 70% with elevated filling pressures and severe aortic stenosis strict I&O Fluid restriction - MSSA bacteremia 2/2 Acute osteomyelitis Hold daptomycin for evidence of elevated CPK To finish by 06/30 Discuss with ID about antibiotics going forward - ZOILA on CKD stage 4 Creatinine worsened to 3.2 Could be related to Lasix, elevated CPK Hold Lasix and lisinopril Gentle hydration today Nephrology following Follow BMP - rhabdomyolysis CPK elevated above 1000 with Zoila I Hydration for today Follow readings by tomorrow - Acute blood loss anemia Hemoglobin stable at 8.4 Last admission had EGD done showed a duodenal ulcer with 2 clips placed, 1 ga stric ulcer with 1 clip placed Continue omeprazole Follow H&H - Paroxysmal atrial fibrillation In sinus rhythm now hold eliquis Cardiology input appreciated, follow as outpatient for aortic stenosis possible AVR - Noninsulin dependent type 2 diabetes Diabetic diet Hold PO home meds Humalog SSI - H/o cirrhosis s/p liver transplant Continue tacrolimus - HTN Continue home meds DVT prophylaxis SCDs Patient will need 2. Overnight hospital stay for evaluation of epistaxis and treatment of acute kidney injury pending Infectious Disease and Nephrology consults to prevent possible decompensation in to sepsis. Quality Stroke Does the patient have a stroke diagnosis?: No VTE Prior VTE?: No VTE Risk Level:: Medical - moderate - high VTE Device Contraindication: Treatment Not Indicated VTE Drug Contraindication: N/A - Med Ordered
[2022-06-09] MEDS: Omeprazole 20 MG CAPSULE.DR PO (15:18)
[2022-06-09] MEDS: Sucralfate 1 GM TABLET PO (15:18)
[2022-06-09 17:28] LABS: Glucose, Whole Blood 157 mg/dL (60-115)
[2022-06-09] MEDS: Insulin Lispro 100 UNIT/ML 3 ML VIAL SUBCUT (17:30)
[2022-06-09 17:37] VITALS: BP 144/73; PULSE 77; RESP 18; TEMP 36.4; O2SAT 99
[2022-06-09 17:41] LABS: Appearance Urine Clear; Color Urine Yellow; Glucose Urine UA Negative (Negative); Leukocyte Esterase Urine Trace (Negative); Nitrite Urine Negative (Negative); Specific Gravity - Urine 1.015 (1.005-1.025); UMIC TRIGGER UA YES; UMIC TRIGGER UACC YES; Urine Blood Large (3+) (Negative); Urine Ketones Trace mg/dL (Negative); Urine Protein 100 (2+) mg/dL (Neg-Trace)
[2022-06-09 17:47] LABS: Bacteria Urine None Seen (None Seen); Hyaline Casts Urine 0-2 /LPF (0-2); RBC Urine >20 /HPF (0-2); Squamous Epithelial Cell Urine 0-2 /HPF (0-2); WBC Urine 0-5 /HPF (0-5)
[2022-06-09 17:54] LABS: Creatinine Urine 162.35 mg/dL
[2022-06-09 21:11] LABS: Glucose, Whole Blood 128 mg/dL (60-115)
[2022-06-09] MEDS: Docusate Sodium 100 MG CAPSULE PO (21:12)
[2022-06-09] MEDS: Sennosides 8.6 MG TABLET 17.2 MG PO (21:12)
[2022-06-09] MEDS: cloNIDine HCL 0.1 MG TABLET PO (21:12)
[2022-06-09] MEDS: Tacrolimus 1 MG CAPSULE PO (21:14)
--- NOTE | 2022-06-09 21:19 | PC.NURSE ---
bedtime meds given. pt resting comfortably on stretcher. no complaints currently. call arguello within reach.
[2022-06-09 23:51] VITALS: BP 139/80; PULSE 68; RESP 18; TEMP 36.4; O2SAT 97
[2022-06-10] MEDS: 0.9 % Sodium Chloride 1,000 ML 100 ML IVCONT (02:37)
[2022-06-10] MEDS: Omeprazole 20 MG CAPSULE.DR PO ×2 (06:21→18:42)
[2022-06-10 06:24] LABS: Hematocrit 23.1 % (42.0-52.0); Hemoglobin 7.8 g/dl (14.0-18.0); Mean Corpuscular HGB Conc 33.8 g/dl (31.0-36.0); Mean Corpuscular Hemoglobin 31.1 pg (27.0-33.0); Mean Platelet Volume 9.5 fL (9.4-12.4); Platelet Count 128 X10*3/uL (160-400); Red Blood Count 2.51 X10*6/uL (4.60-5.80); Red Cell Distribution Width 14.6 % (11.0-16.0); White Blood Count 2.6 X10*3/uL (4.8-10.8)
[2022-06-10 06:25] LABS: Anion Gap 15 (12-20); Blood Urea Nitrogen 41 mg/dL (9-16); Calcium 8.2 mg/dL (8.4-10.2); Carbon Dioxide 22 mmol/L (22-29); Chloride 107 mmol/L (96-108); Creatinine Clr Calc Pharmacy 29.8; Estimated Glomerular Filt Rate 29; Glucose Random 158 mg/dL (60-115); Potassium 4.5 mmol/L (3.3-5.1); Sodium 139 mmol/L (135-145)
[2022-06-10 07:16] VITALS: BP 150/74; PULSE 78; RESP 16; TEMP 36.8; O2SAT 99
[2022-06-10 07:21] LABS: Glucose, Whole Blood 158 mg/dL (60-115)
[2022-06-10] MEDS: Tacrolimus 1 MG CAPSULE PO ×2 (08:59→20:50)
[2022-06-10] MEDS: Cholecalciferol (Vitamin D3) 25 MCG TABLET PO (08:59)
[2022-06-10] MEDS: amLODIPine Besylate 10 MG TABLET PO (09:00)
[2022-06-10] MEDS: Multivitamin TABLET 1 TAB PO (09:00)
[2022-06-10] MEDS: Docusate Sodium 100 MG CAPSULE PO ×2 (09:00→20:21)
[2022-06-10] MEDS: Sucralfate 1 GM TABLET PO ×2 (09:00→18:43)
[2022-06-10] MEDS: cloNIDine HCL 0.1 MG TABLET PO ×2 (09:00→20:21)
[2022-06-10] MEDS: Furosemide 40 MG TABLET PO (09:01)
[2022-06-10] MEDS: SITagliptin Phosphate 50 MG TABLET PO (09:01)
[2022-06-10] MEDS: Insulin Lispro 100 UNIT/ML 3 ML VIAL SUBCUT ×2 (09:10→20:22)
--- NOTE | 2022-06-10 09:39 | MHC.CM.PN ---
PT REPORTS HE LIVES AT HOME WITH HIS HE IS INDEPENDENT WITH CARE AT BASELINE PT [facility]TS [facility] RN VISITS [facility] [employer] FOR MEDS AND SUPPLIES PT REPORTS HE HAS A HCP NAMING HIS . BHANU, THE AGENT COPY REQUESTED PT REPORTS HE IS VACCINATED AGAINST COVID-19 AND HAS RECEIVED ONE [facility] PCP: TAYLOR NICOLE IMM DELIVERED, COPY SENT TO [facility] CURRENT DC PLAN IS HOME [facility] [employer] TO TRANSPORT
--- NOTE | 2022-06-10 10:23 | HO.PM.IMPN ---
Subjective Subjective Date of Service: 06/10/22 Interval History: cc: epistaxis interval history:no further bleeding overnight Cardiovascular Cardiovascular: Reports no additional cardiovascular complaints Respiratory Respiratory: Reports no additional respiratory complaints Physical Exam Vital Signs: Vital Signs: Last Vital Signs Temp 98.3 F 06/10/22 07:16 Pulse 78 06/10/22 07:16 Resp 16 06/10/22 07:16 BP 150/74 H 06/10/22 07:16 Pulse Ox 99 06/10/22 07:16 O2 Del Method 06/10/22 07:16 BMI result Body Mass Index 40.6 General: AO X 3, no acute distress HEENT: right rhinorocket Resp: CTA bilateral, no accessory muscles used CVS: S1,S2,RRR, murmur GI: soft, non tender, non distended Neuro: motor grossly intact, alert Psych: appropriate affect, appropriate insight Objective Data Active Medications Amlodipine Besylate (Amlodipine Besylate 10 Mg Tablet) 10 mg PO DAILY [facility]; Protocol Last Admin: 06/10/22 09:00 Dose: 10 mg Documented By: SYED Clonidine HCl (Clonidine Hcl 0.1 Mg Tablet) 0.1 mg PO BID [facility]; Protocol Last Admin: 06/10/22 09:00 Dose: 0.1 mg Documented By: SYED Docusate Sodium (Docusate Sodium 100 Mg Capsule) 100 mg PO BID [facility] Last Admin: 06/10/22 09:00 Dose: 100 mg Documented By: SYED Furosemide (Furosemide 40 Mg Tablet) 40 mg PO DAILY [facility]; Protocol Last Admin: 06/10/22 09:01 Dose: 40 mg Documented By: SYED Sodium Chloride (Ns) 1,000 mls @ 75 mls/hr IVCONT .[id number] [facility] Last Admin: 06/10/22 02:37 Dose: 100 mls/hr Documented By: ALEKSANDRA Cefazolin Sodium 1 gm/ Sodium (Chloride) 50 mls @ 100 mls/hr IV Q8H [facility] Stop: 07/01/22 01:29 Last Infusion: 06/10/22 10:12 Dose: 0 mls/hr Documented By: SYED Insulin Human Lispro (Insulin Lispro 100 Unit/Ml 3 Ml Vial) 0 unit SUBCUT QIDACHS [facility]; Protocol Last Admin: 06/10/22 09:10 Dose: 2 unit Multivitamins/Vitamin C (Multivitamin Tablet) 1 tab PO DAILY [facility] Last Admin: 06/10/22 09:00 Dose: 1 tab Documented By: SYED Omeprazole (Omeprazole 20 Mg Capsule.) 20 mg PO BID@0630,1630 [facility] Last Admin: 06/10/22 06:21 Dose: 20 mg Documented By: ALEKSANDRA Ondansetron HCl (Ondansetron Hcl 4 Mg/2 Ml Vial) 4 mg IVPUSH Q8H PRN PRN Reason: Nausea and Vomiting Pharmacy Consult (Consult Rx Perform Med Rec) 1 each MISCELLANE ONCE PRN PRN Reason: Consult order Senna (Sennosides 8.6 Mg Tablet) 17.2 mg PO BEDTIME [facility] Last Admin: 06/09/22 21:12 Dose: 17.2 mg Documented By: CAITLYN Sitagliptin Phosphate (Sitagliptin Phosphate 50 Mg Tablet) 50 mg PO DAILY [facility] Last Admin: 06/10/22 09:01 Dose: 50 mg Documented By: SYED Sodium Chloride (0.9 % Sodium Chloride Flush 3 Ml Syringe) 3 ml IVFLUSH QSHIFT [facility] Last Admin: 06/10/22 09:11 Dose: Not Given Documented By: SYED Non-Admin Reason: IV Running Sucralfate (Sucralfate 1 Gm Tablet) 1 gm PO BIDAC [facility] Last Admin: 06/10/22 09:00 Dose: 1 gm Documented By: SYED Tacrolimus (Tacrolimus 1 Mg Capsule) 1 mg PO BID [facility] Last Admin: 06/10/22 08:59 Dose: 1 mg Documented By: SYED Vitamin D (Cholecalciferol (Vitamin D3) 25 Mcg Tablet) 25 mcg PO DAILY [facility] Last Admin: 06/10/22 08:59 Dose: 25 mcg Documented By: SYED Labs CBC & Chem 7: 06/10/22 05:37 06/10/22 05:37 Labs: Laboratory Results - last 24 hr 06/09/22 06/09/22 06/09/22 08:48 08:48 12:07 MCV MCH MCHC RDW Plt Count MPV Absolute Nucleated RBC Nucleated RBC % (auto) Anion Gap Estim Creat Clear Calc Estimated GFR POC Glucose Random Glucose Calcium Magnesium 1.6 Total Bilirubin 0.9 Direct Bilirubin 0.4 AST 102 H ALT 39 Alkaline Phosphatase 89 Total Creatine Kinase 1197 H D B-Natriuretic Peptide 305 H Total Protein 6.7 Albumin 2.8 L Urine Color Urine Appearance Urine pH Ur Specific [place] Urine Protein Urine Glucose (UA) Urine Ketones Urine Blood Urine Nitrite Ur Leukocyte Esterase Urine RBC Urine WBC Ur Squamous Epith Cells Urine Bacteria Hyaline Casts Ur Random Sodium Urine Creatinine COVID-19 (JACQUELYN) Negative COVID-19 Clin Com See Note 06/09/22 06/09/22 06/09/22 16:59 17:30 17:30 MCV MCH MCHC RDW Plt Count MPV Absolute Nucleated RBC Nucleated RBC % (auto) Anion Gap Estim Creat Clear Calc Estimated GFR POC Glucose 157 H Random Glucose Calcium Magnesium Total Bilirubin Direct Bilirubin AST ALT Alkaline Phosphatase Total Creatine Kinase B-Natriuretic Peptide Total Protein Albumin Urine Color Yellow Urine Appearance Clear Urine pH 6.0 Ur Specific [place] 1.015 Urine Protein 100 (2+) H Urine Glucose (UA) Negative Urine Ketones Trace Urine Blood Large (3+) H Urine Nitrite Negative Ur Leukocyte Esterase Trace H Urine RBC >20 H Urine WBC 0-5 Ur Squamous Epith Cells 0-2 Urine Bacteria None Seen Hyaline Casts 0-2 Ur Random Sodium 44.0 Urine Creatinine 162.35 COVID-19 (JACQUELYN) COVID-19 Clin Com 06/09/22 06/10/22 06/10/22 21:08 05:37 05:37 MCV 92.0 MCH 31.1 MCHC 33.8 RDW 14.6 Plt Count 128 L MPV 9.5 Absolute Nucleated RBC 0.000 Nucleated RBC % (auto) 0.0 Anion Gap 15 Estim Creat Clear Calc 29.8 Estimated GFR 29 POC Glucose 128 H Random Glucose 158 H Calcium 8.2 L Magnesium Total Bilirubin Direct Bilirubin AST ALT Alkaline Phosphatase Total Creatine Kinase B-Natriuretic Peptide Total Protein Albumin Urine Color Urine Appearance Urine pH Ur Specific [place] Urine Protein Urine Glucose (UA) Urine Ketones Urine Blood Urine Nitrite Ur Leukocyte Esterase Urine RBC Urine WBC Ur Squamous Epith Cells Urine Bacteria Hyaline Casts Ur Random Sodium Urine Creatinine COVID-19 (JACQUELYN) COVID-19 Clin Com 06/10/22 07:13 MCV MCH MCHC RDW Plt Count MPV Absolute Nucleated RBC Nucleated RBC % (auto) Anion Gap Estim Creat Clear Calc Estimated GFR POC Glucose 158 H Random Glucose Calcium Magnesium Total Bilirubin Direct Bilirubin AST ALT Alkaline Phosphatase Total Creatine Kinase B-Natriuretic Peptide Total Protein Albumin Urine Color Urine Appearance Urine pH Ur Specific [place] Urine Protein Urine Glucose (UA) Urine Ketones Urine Blood Urine Nitrite Ur Leukocyte Esterase Urine RBC Urine WBC Ur Squamous Epith Cells Urine Bacteria Hyaline Casts Ur Random Sodium Urine Creatinine COVID-19 (JACQUELYN) COVID-19 Clin Com Assessment and Plan (1) Rhabdomyolysis: Status: Acute Plan 71 years old with PMH significant for non-alcoholic cirrhosis s/p liver transplant 5 years ago on tacrolimas, severe aortic stenosis, noninsulin dependent type 2 diabetes, hld, osteomyelitis spine with recent admission for GI bleed, osteomyelitis of the spine with bacteremia PICC in place for IV daptomycin? discharge on 06/07 post GI bleed, acute anemia and Zoila I on CKD. who presented to the hospital with epistaxis. epistaxis Right nostril with anterior rhino rocket placed Afrin as needed holding Eliquis hgb stable, monitor chronic diastolic heart failure Not in exacerbation Hold Lasix due to Zoila I Echo showed EF more than 70% with elevated filling pressures and severe aortic stenosis strict I&O Fluid restriction MSSA bacteremia 2/2 Acute osteomyelitis Holding daptomycin for evidence of elevated CPK will start ancef To finish by 06/30 ID eval for choice of antibiotics going forward ZOILA on CKD stage 4 resolved Holding Lasix and lisinopril Gentle hydration Nephrology following Follow BMP mild rhabdomyolysis CPK elevated above 1000 with Zoila Hydration dapto on hold recent duodenal ulcer Last admission had EGD done showed a duodenal ulcer with 2 clips placed, 1 gastric ulcer with 1 clip placed Continue omeprazole Follow H&H holding eliquis Paroxysmal atrial fibrillation In sinus rhythm now holding eliquis Cardiology input appreciated, follow as outpatient for aortic stenosis possible AVR Noninsulin dependent type 2 diabetes Diabetic diet Hold PO home meds Humalog SSI H/o cirrhosis s/p liver transplant complicated by pancytopenia Continue tacrolimus HTN Continue amlodipine, clonidine DVT prophylaxis SCDs full code reason for continued hospitalization:monitoring for further bleeding, epistaxis, high risk for recurrent bleed - eliquis, recent gi bleed, cirrhosis Quality Stroke Does the patient have a stroke diagnosis?: No VTE Prior VTE?: No VTE Risk Level:: Medical - moderate - high VTE Device Contraindication: Treatment Not Indicated VTE Drug Contraindication: N/A - Med Ordered
--- NOTE | 2022-06-10 10:33 | P.PNNP_ITS ---
Subjective Subjective Date of Service: 06/11/22 Interval history: Seen Physical Exam Vital Signs: Vital Signs: Last Vital Signs Temp 98.3 F 06/10/22 07:16 Pulse 78 06/10/22 07:16 Resp 16 06/10/22 07:16 BP 150/74 H 06/10/22 07:16 Pulse Ox 99 06/10/22 07:16 O2 Del Method 06/10/22 07:16 BMI result Body Mass Index 40.6 Const: Other: Constitutional : Alert, oriented, not in distress Neck : Normal inspection, Supple Head: Throat with no active bleeding, Right nostril bleeding with anterior rhino rocket placed with positive results Cardiovascular : RRR, no JVP, +1 bilateral lower extremity edema, murmur Respiratory : fair bilateral air entry,? no crackles, wheezes or rhonchi Gastrointestinal:? soft, lax, Normal bowel sounds, Non tender Skin : Warm, Dry Neurological : Alert & oriented x3, No focal deficit General: cooperative, healthy appearing and no acute distress Orientation/consciousness: patient oriented x3 Limitations: no limitations HEENT: Head: Yes normal to inspection and Yes atraumatic Ears: hearing grossly normal bilaterally General nose exam: Normal external nose present and Epistaxis present on the right anterior source, active bleeding and source not visualized Face and sinus: Yes normal facial exam Mouth: Normal oral and palatal mucosa present and no muffled voice Teeth and gingiva: dentition normal Throat: Yes posterior oropharynx normal, Yes tonsils normal, Yes uvula midline, No peritonsillar mass, No postnasal drainage and No uvular edema Eyes: General: appearance normal, both eyes and all related structures Pupils: Equal, round and reactive pupils present EOM: EOMs intact bilaterally Neck: Neck: Yes normal visual inspection and Yes no meningeal signs Resp: Effort & Inspection: normal respiratory effort and no respiratory distress Auscultation: clear to auscultation bilaterally Cardio: Rate: regular rate Rhythm: regular rhythm Heart sounds: S1 normal heart sound present and S2 normal heart sound present GI: Inspection: Yes normal to inspection Palpation (GI): Soft to palpation, nontender, no guarding and not rigid : General: Yes no CVA tenderness Back/Spine/Pelvis: Back: no CVA tenderness Skin: General skin exam: no rashes or lesions noted Rashes: no rashes Wounds: no wounds Neuro: General: patient oriented x3, tone normal, moves all extremities and no meningeal signs Cranial nerves: Yes Equal, round and reactive pupils present Gait exam (Neuro): Normal gait present Extrem: General: Yes normal to inspection Psych: Appearance: grossly normal Objective Data Labs CBC & Chem 7: 06/11/22 05:22 06/11/22 05:22 Labs: Laboratory Results - last 24 hr 06/09/22 06/09/22 06/09/22 08:48 08:48 12:07 WBC RBC Hgb Hct MCV MCH MCHC RDW Plt Count MPV Absolute Nucleated RBC Nucleated RBC % (auto) Sodium Potassium Chloride Carbon Dioxide Anion Gap BUN Creatinine Estim Creat Clear Calc Estimated GFR POC Glucose Random Glucose Calcium Magnesium 1.6 Total Bilirubin 0.9 Direct Bilirubin 0.4 AST 102 H ALT 39 Alkaline Phosphatase 89 Total Creatine Kinase 1197 H D B-Natriuretic Peptide 305 H Total Protein 6.7 Albumin 2.8 L Urine Color Urine Appearance Urine pH Ur Specific [place] Urine Protein Urine Glucose (UA) Urine Ketones Urine Blood Urine Nitrite Ur Leukocyte Esterase Urine RBC Urine WBC Ur Squamous Epith Cells Urine Bacteria Hyaline Casts Ur Random Sodium Urine Creatinine COVID-19 (JACQUELYN) Negative COVID-19 [place] Com See Note 06/09/22 06/09/22 06/09/22 16:59 17:30 17:30 WBC RBC Hgb Hct MCV MCH MCHC RDW Plt Count MPV Absolute Nucleated RBC Nucleated RBC % (auto) Sodium Potassium Chloride Carbon Dioxide Anion Gap BUN Creatinine Estim Creat Clear Calc Estimated GFR POC Glucose 157 H Random Glucose Calcium Magnesium Total Bilirubin Direct Bilirubin AST ALT Alkaline Phosphatase Total Creatine Kinase B-Natriuretic Peptide Total Protein Albumin Urine Color Yellow Urine Appearance Clear Urine pH 6.0 Ur Specific [place] 1.015 Urine Protein 100 (2+) H Urine Glucose (UA) Negative Urine Ketones Trace Urine Blood Large (3+) H Urine Nitrite Negative Ur Leukocyte Esterase Trace H Urine RBC >20 H Urine WBC 0-5 Ur Squamous Epith Cells 0-2 Urine Bacteria None Seen Hyaline Casts 0-2 Ur Random Sodium 44.0 Urine Creatinine 162.35 COVID-19 (JACQUELYN) COVID-19 Showcase 06/09/22 06/10/22 06/10/22 21:08 05:37 05:37 WBC 2.6 L RBC 2.51 L Hgb 7.8 L Hct 23.1 L MCV 92.0 MCH 31.1 MCHC 33.8 RDW 14.6 Plt Count 128 L MPV 9.5 Absolute Nucleated RBC 0.000 Nucleated RBC % (auto) 0.0 Sodium 139 Potassium 4.5 Chloride 107 Carbon Dioxide 22 Anion Gap 15 BUN 41 H Creatinine 2.26 H Estim Creat Clear Calc 29.8 Estimated GFR 29 POC Glucose 128 H Random Glucose 158 H Calcium 8.2 L Magnesium Total Bilirubin Direct Bilirubin AST ALT Alkaline Phosphatase Total Creatine Kinase B-Natriuretic Peptide Total Protein Albumin Urine Color Urine Appearance Urine pH Ur Specific [place] Urine Protein Urine Glucose (UA) Urine Ketones Urine Blood Urine Nitrite Ur Leukocyte Esterase Urine RBC Urine WBC Ur Squamous Epith Cells Urine Bacteria Hyaline Casts Ur Random Sodium Urine Creatinine COVID-19 (JACQUELYN) COVID-19 Clin Com 06/10/22 07:13 WBC RBC Hgb Hct MCV MCH MCHC RDW Plt Count MPV Absolute Nucleated RBC Nucleated RBC % (auto) Sodium Potassium Chloride Carbon Dioxide Anion Gap BUN Creatinine Estim Creat Clear Calc Estimated GFR POC Glucose 158 H Random Glucose Calcium Magnesium Total Bilirubin Direct Bilirubin AST ALT Alkaline Phosphatase Total Creatine Kinase B-Natriuretic Peptide Total Protein Albumin Urine Color Urine Appearance Urine pH Ur Specific [place] Urine Protein Urine Glucose (UA) Urine Ketones Urine Blood Urine Nitrite Ur Leukocyte Esterase Urine RBC Urine WBC Ur Squamous Epith Cells Urine Bacteria Hyaline Casts Ur Random Sodium Urine Creatinine COVID-19 (JACQUELYN) COVID-19 Clin Com Assessment & Plan Assessment and plan (1) Rhabdomyolysis: Status: Acute Assessment and Plan: Likely Daptomycin given for ease of administration daily and lack of general allergic reaction given but patient with elevated CK due to it likely and now epistaxis. (2) Epistaxis: Status: Acute Plan Stop Daptomycin IV Kefzol renal adjust if needed and finish June 30 Time Spent With Patient Time: Total time spent is greater than 50% in coordination of care (as documented) at patient's floor/unit and/or counseling patient: Progress Note: Quality Stroke Does the patient have a stroke diagnosis?: No
[2022-06-10 11:19] LABS: Iron 54 mcg/dL (45-160); Percent Iron Saturation 27 % (15-50); Total Iron Binding Capacity 202 mcg/dL (228-428); Unsaturated Iron Binding 148 ug/dL
[2022-06-10 11:28] VITALS: BP 134/74; PULSE 73; RESP 16; TEMP 36.8; O2SAT 98
[2022-06-10 11:31] LABS: Glucose, Whole Blood 137 mg/dL (60-115)
[2022-06-10 12:38] LABS: Ferritin 567 ng/mL (20-250)
[2022-06-10 15:08] VITALS: BP 142/70; PULSE 77; TEMP 36.8; O2SAT 98
[2022-06-10 16:00] VITALS: BP 149/66; PULSE 82; RESP 17; TEMP 36.8; O2SAT 97
--- NOTE | 2022-06-10 16:48 | W.PM.IDCN ---
History of Present Illness Data of Consult Service Date: 06/10/22 Requesting physician: Feliz [place] Primary Care Provider: Sherif Oconnor III, MD HPI Reason for consult: osteomyelitis LS spine He presents with weakness muscles and has increased CK He has osteomyelitis LS spine and is done with IV antibiotics on 06/30. He has MSSA. Review of Systems Review of Systems: Yes all other systems are reviewed and are negative [facility] Past Medical History Medical History Acute diastolic (congestive) heart failure Anemia Aortic stenosis CKD (chronic kidney disease) stage 3, GFR 30-59 ml/min Diabetes Duodenal ulcer Duodenitis Fatty liver GERD (gastroesophageal reflux disease) Gram-positive bacteremia Hypercholesteremia Hypertension Non-rheumatic aortic stenosis Osteomyelitis PAF (paroxysmal atrial fibrillation) Staphylococcus aureus bacteremia Family History Family History Mother Myocardial infarct Surgical History Surgical History History of back surgery Hx of colonoscopy Hx of lymph node excision Liver transplant recipient Social History Social History Household Members: Spouse and Children Housing: House Do you presently have visiting nurse or other home services: Yes (picc line antibiotics) Patient Tobacco Use Status: Never used Tobacco Use of substances other than those prescribed or required for medical reasons: No Advance Directives: Yes Advance Directives on File: Yes Advance Directives Date on File: 05/19/22 service: No Current occupational status: retired Meds Allergies Allergy/AdvReac Type Severity Reaction Status Date / Time ibuprofen [IBUPROFEN] Allergy Severe SWELLING Verified 06/02/22 14:39 peanut [PEANUTS] Allergy Unknown SWELLING Verified 06/02/22 14:39 Active Medications: Current Medications Amlodipine Besylate (Amlodipine Besylate 10 Mg Tablet) 10 mg PO DAILY [facility]; Protocol Last Admin: 06/10/22 09:00 Dose: 10 mg Clonidine HCl (Clonidine Hcl 0.1 Mg Tablet) 0.1 mg PO BID [facility]; Protocol Last Admin: 06/10/22 09:00 Dose: 0.1 mg Docusate Sodium (Docusate Sodium 100 Mg Capsule) 100 mg PO BID [facility] Last Admin: 06/10/22 09:00 Dose: 100 mg Furosemide (Furosemide 40 Mg Tablet) 40 mg PO DAILY [facility]; Protocol Last Admin: 06/10/22 09:01 Dose: 40 mg Sodium Chloride (Ns) 1,000 mls @ 75 mls/hr IVCONT .[id number] [facility] Last Infusion: 06/10/22 12:12 Dose: Infused Cefazolin Sodium 1 gm/ Sodium (Chloride) 50 mls @ 100 mls/hr IV Q8H [facility] Stop: 07/01/22 01:29 Last Infusion: 06/10/22 10:12 Dose: Infused Insulin Human Lispro (Insulin Lispro 100 Unit/Ml 3 Ml Vial) 0 unit SUBCUT QIDACHS [facility]; Protocol Last Admin: 06/10/22 11:42 Dose: Not Given Multivitamins/Vitamin C (Multivitamin Tablet) 1 tab PO DAILY [facility] Last Admin: 06/10/22 09:00 Dose: 1 tab Omeprazole (Omeprazole 20 Mg Capsule.) 20 mg PO BID@0630,1630 [facility] Last Admin: 06/10/22 06:21 Dose: 20 mg Ondansetron HCl (Ondansetron Hcl 4 Mg/2 Ml Vial) 4 mg IVPUSH Q8H PRN PRN Reason: Nausea and Vomiting Pharmacy Consult (Consult Rx Perform Med Rec) 1 each MISCELLANE ONCE PRN PRN Reason: Consult order Senna (Sennosides 8.6 Mg Tablet) 17.2 mg PO BEDTIME [facility] Last Admin: 06/09/22 21:12 Dose: 17.2 mg Sitagliptin Phosphate (Sitagliptin Phosphate 50 Mg Tablet) 50 mg PO DAILY [facility] Last Admin: 06/10/22 09:01 Dose: 50 mg Sodium Chloride (0.9 % Sodium Chloride Flush 3 Ml Syringe) 3 ml IVFLUSH QSHIFT [facility] Last Admin: 06/10/22 16:35 Dose: Not Given Sucralfate (Sucralfate 1 Gm Tablet) 1 gm PO BIDAC [facility] Last Admin: 06/10/22 09:00 Dose: 1 gm Tacrolimus (Tacrolimus 1 Mg Capsule) 1 mg PO BID [facility] Last Admin: 06/10/22 08:59 Dose: 1 mg Vitamin D (Cholecalciferol (Vitamin D3) 25 Mcg Tablet) 25 mcg PO DAILY [facility] Last Admin: 06/10/22 08:59 Dose: 25 mcg Home Medications Medication Instructions Recorded Confirmed Last Taken Type ascorbic acid (vitamin C) 500 mg 500 mg PO DAILY 05/19/22 06/09/22 06/08/22 History tablet (Vitamin C) cholecalciferol (vitamin D3) 25 25 mcg PO DAILY 05/19/22 06/09/22 06/08/22 History mcg (1,000 unit) tablet (Vitamin D3) docusate sodium 100 mg capsule 100 mg PO BID 05/19/22 06/09/22 06/08/22 History (Colace) multivitamin 1 tab PO DAILY 05/19/22 06/09/22 06/08/22 History sennosides 8.6 mg tablet (senna) 17.2 mg PO BEDTIME 05/19/22 06/09/22 06/08/22 History amlodipine 10 mg tablet 10 mg PO DAILY 06/02/22 06/09/22 06/08/22 History atorvastatin 20 mg tablet 20 mg PO BEDTIME 06/02/22 06/09/22 06/08/22 History clonidine HCl 0.1 mg tablet 0.1 mg PO BID 06/02/22 06/09/22 06/08/22 History lisinopril 2.5 mg tablet 2.5 mg PO DAILY 06/02/22 06/09/22 06/08/22 History repaglinide 0.5 mg tablet 0.5 mg PO TIDAC 06/02/22 06/09/22 06/08/22 History sitagliptin 50 mg tablet (Januvia) 50 mg PO DAILY 06/02/22 06/09/22 06/08/22 History tacrolimus 1 mg capsule, 1 mg PO BID 06/02/22 06/09/22 06/08/22 History immediate-release furosemide 80 mg tablet 40 mg PO DAILY 06/09/22 06/09/22 06/08/22 History Physical Exam Vital Signs: Vital Signs: Last Vital Signs Temp 98.3 F 06/10/22 15:08 Pulse 77 06/10/22 15:08 Resp 16 06/10/22 11:28 BP 142/70 H 06/10/22 15:08 Pulse Ox 98 06/10/22 15:08 O2 Del Method 06/10/22 15:08 BMI result Body Mass Index 40.6 Const: General: cooperative HEENT: Head: Yes normal to inspection Face and sinus: Yes normal facial exam Mouth: Normal oral and palatal mucosa present Teeth and gingiva: dentition normal Eyes: General: appearance normal, both eyes and all related structures Pupils: Equal, round and reactive pupils present Resp: Effort & Inspection: normal respiratory effort Cardio: Rate: regular rate Rhythm: regular rhythm GI: Palpation (GI): Soft to palpation and nontender : General: Yes no CVA tenderness Back/Spine/Pelvis: Back: no CVA tenderness Skin: General skin exam: no rashes or lesions noted Neuro: General: moves all extremities Cranial nerves: Yes Equal, round and reactive pupils present Extrem: General: Yes normal to inspection Psych: Appearance: grossly normal Results Labs CBC & Chem 7: 06/10/22 05:37 06/10/22 05:37 Labs: Short CBC 06/10/22 Range/Units 05:37 WBC 2.6 L (4.8-10.8) X10*3/uL Hgb 7.8 L (14.0-18.0) g/dl Hct 23.1 L (42.0-52.0) % Plt Count 128 L (160-400) X10*3/uL BMP 06/10/22 05:37 Sodium 139 Potassium 4.5 Chloride 107 Carbon Dioxide 22 BUN 41 H Creatinine 2.26 H Calcium 8.2 L Urine 06/09/22 Range/Units 17:30 Urine Color Yellow Urine Appearance Clear Urine pH 6.0 (5.0-9.0) Ur Specific [place] 1.015 (1.005-1.025) Urine Protein 100 (2+) H (Neg-Trace) mg/dL Urine Glucose (UA) Negative (Negative) mg/dL Assessment and Plan (1) Rhabdomyolysis: Status: Acute Likely Daptomycin given for ease of administration daily and lack of general allergic reaction given but patient with elevated CK due to it likely and now epistaxis. (2) Epistaxis: Status: Acute Plan Stop Daptomycin IV Kefzol renal adjust if needed and finish June 30
[2022-06-10 18:03] LABS: Glucose, Whole Blood 148 mg/dL (60-115)
--- NOTE | 2022-06-10 18:39 | PC.NURSE ---
1839-report given to SERENE Tamez on Med/surg
[2022-06-10] MEDS: Alteplase Cath Clear 2 MG VIAL 1 MG INTRACATH (18:43)
[2022-06-10 20:18] LABS: Glucose, Whole Blood 211 mg/dL (60-115)
[2022-06-10] MEDS: Sennosides 8.6 MG TABLET 17.2 MG PO (20:21)
[2022-06-10] MEDS: 0.9 % Sodium Chloride 1,000 ML 75 ML IVCONT (20:37)
[2022-06-11] VITALS (7 sets, daily range): BP systolic 135–150; BP diastolic 52–80; PULSE 64–92; RESP 17–20; TEMP 35.8–37; O2SAT 97–99
[2022-06-11] MEDS: Omeprazole 20 MG CAPSULE.DR PO ×2 (05:02→16:31)
[2022-06-11 06:20] LABS: Hematocrit 21.8 % (42.0-52.0); Hemoglobin 7.4 g/dl (14.0-18.0); Mean Corpuscular HGB Conc 33.9 g/dl (31.0-36.0); Mean Corpuscular Hemoglobin 31.6 pg (27.0-33.0); Mean Corpuscular Volume 93.2 fL (80.0-98.0); Mean Platelet Volume 9.7 fL (9.4-12.4); Platelet Count 131 X10*3/uL (160-400); Red Blood Count 2.34 X10*6/uL (4.60-5.80); Red Cell Distribution Width 14.7 % (11.0-16.0)
[2022-06-11 06:21] LABS: White Blood Count 2.5 X10*3/uL (4.8-10.8)
[2022-06-11 06:41] LABS: Anion Gap 14 (12-20); Blood Urea Nitrogen 37 mg/dL (9-16); Calcium 8.1 mg/dL (8.4-10.2); Carbon Dioxide 22 mmol/L (22-29); Chloride 106 mmol/L (96-108); Creatinine Clr Calc Pharmacy 31.9; Estimated Glomerular Filt Rate 31; Glucose Fasting 177 mg/dL (60-99); Potassium 4.2 mmol/L (3.3-5.1); Sodium 138 mmol/L (135-145)
[2022-06-11 07:53] LABS: Glucose, Whole Blood 173 mg/dL (60-115)
[2022-06-11] MEDS: cloNIDine HCL 0.1 MG TABLET PO ×2 (08:00→22:05)
[2022-06-11] MEDS: Cholecalciferol (Vitamin D3) 25 MCG TABLET PO (08:00)
[2022-06-11] MEDS: SITagliptin Phosphate 50 MG TABLET PO (08:00)
[2022-06-11] MEDS: Sucralfate 1 GM TABLET PO ×2 (08:01→16:31)
[2022-06-11] MEDS: 0.9 % Sodium Chloride Flush 3 ML SYRINGE IVFLUSH (08:01)
[2022-06-11] MEDS: amLODIPine Besylate 10 MG TABLET PO (08:01)
[2022-06-11] MEDS: Docusate Sodium 100 MG CAPSULE PO ×2 (08:01→22:05)
[2022-06-11] MEDS: Tacrolimus 1 MG CAPSULE PO ×2 (08:01→22:05)
[2022-06-11] MEDS: Multivitamin TABLET 1 TAB PO (08:01)
[2022-06-11] MEDS: Insulin Lispro 100 UNIT/ML 3 ML VIAL SUBCUT ×3 (08:02→22:05)
--- NOTE | 2022-06-11 10:08 | CONS_ITS ---
DATE OF SERVICE: 06/10/2022 REASON FOR CONSULTATION: I was asked to see patient to assist in evaluation and management of patient's acute kidney injury on chronic kidney disease in the setting of a bounce back to the hospital. He was just discharged 2 days ago. His creatinine was up to 3.24 yesterday on readmission to the hospital, which is up from 2.4 at the time of discharge on the . HISTORY OF PRESENT ILLNESS: In summary, he is a 71-year-old gentleman who had a liver transplant 5 years ago at [facility], maintained on tacrolimus, has history of severe aortic stenosis and diabetes that is noninsulin dependent, osteomyelitis of the spine with recent admission for GI bleed. He has been getting outpatient antibiotics via PICC line with IV daptomycin, discharged on June 07. During the last hospitalization, he had again acute kidney injury with some improvement in his renal function at time of discharge. In reviewing his records, looks like his baseline creatinine is in the 1.5 to 2.0 range, but he is very volume sensitive with episodes of worsening renal function. He is maintained on tacrolimus. There is a question whether he could have calcineurin inhibitor associated CKD, but no mention made of ever having had a kidney biopsy or further evaluation with the liver transplant program about using alternative immunosuppression such as sirolimus in place of tacrolimus. Indicates like as mentioned, he was discharged on the and readmitted with acute kidney injury and a nose bleed. He has been on varying doses of diuretics to maintain his volume status optimal. This morning, he is feeling better. Denies any chest pain, fever, sweats, or chills. PAST MEDICAL HISTORY: As mentioned above. MEDICATIONS: His medications on admission are noted in the records and list; Lasix 80 mg a day, whereas previously apparently he is on 40. Tacrolimus 1 mg twice a day, lisinopril 2.5 once a day, clonidine, Lipitor, Norvasc. His other medications along with daptomycin as mentioned for the osteomyelitis. SOCIAL HISTORY: He is a nonsmoker, nondrinker. No illicit drug use. Denies taking NSAIDs. REVIEW OF SYSTEMS: As noted above. CURRENT MEDICATIONS: Listed in the MAR. PHYSICAL EXAMINATION: VITAL SIGNS: Blood pressure 150/70, heart rate in the 70s. HEENT: Head is atraumatic and normocephalic. He has a packing in his right nares. LUNGS: Breath sounds bilaterally. CARDIAC: Regular rate and rhythm with a systolic murmur. ABDOMEN: Obese, soft, nontender. EXTREMITIES: Show trace pedal edema. LABORATORY DATA: Hemoglobin 7.8, hematocrit 23.1, white blood cell count 2.6, platelet count 128. At time of discharge, his hemoglobin was 8.1. Sodium 139, potassium 4.5, chloride 107, bicarb 22, BUN 41, creatinine 2.2, yesterday on admission was 3.2. As mentioned, his creatinine has ranged in 1.5 to 2.0 range. Calcium 8.2. Urine studies show UA with 2+ protein, 3+ blood. Urine sodium 44, urine creatinine 162. IMPRESSION: 71-YEAR-OLD LIVER TRANSPLANT PATIENT, READMITTED TO THE HOSPITAL WITH A NOSE BLEED AND ACUTE KIDNEY INJURY ON CHRONIC KIDNEY DISEASE. 1. Acute kidney injury. The fact that his renal functions improved overnight suggest that this was somewhat volume mediated may have been over diuresed. Renal function seems to have improved and approaching his baseline. Further evaluation including urinalysis and urine protein creatinine ratio. We will also obtain serum immunofixation and free kappa lambda for the possibility of an underlying dysproteinemia. We will need to discuss with his outpatient liver transplant team about possibility of doing a kidney biopsy as an outpatient for the question of whether he has calcineurin inhibitor as a cause of his chronic kidney disease and may be candidate to switch to sirolimus. 2. Good news that renal function seems to be improved with the Lasix on hold. We will need to discuss with Cardiology and the hospitalist about the best dosing for his chronic diuretic treatment. 3. Stage 3 chronic kidney disease. As mentioned above, it is unclear whether this is due to diabetic kidney disease or perhaps calcineurin inhibitor chronic kidney disease from the tacrolimus. 4. Volume status. He has a challenging volume patient to assess. He is maintained on chronic diuretics. He has aortic stenosis and need to check with Cardiology how severe it. 5. Osteomyelitis, maintained on daptomycin. He is being evaluated by the team as to antibiotic regimen given that his CPK was 1197. This may be from the daptomycin. 6. Anemia. His baseline hemoglobin seems run 8.5 to 9.5. We will check iron studies and see if he is a potential candidate for EPO injections and/or iron. He may need transfusion of the ongoing epistaxis. SUGGESTIONS: At this time include urinalysis, urine protein creatinine ratio, serum immunofixation along with free kappa lambda chain assessment. Avoid nephrotoxins. Continue Lasix at the usual dose of 40 mg a day. Check a tacrolimus level. Check with Cardiology as to the severity of his aortic stenosis and whether any interventions for further evaluation need be done for that. We will follow the patient with the team. MD SHIV Hannah/TIMOTHY / [phone]
[2022-06-11 10:56] LABS: Glucose, Whole Blood 256 mg/dL (60-115)
--- NOTE | 2022-06-11 11:17 | PM.PNNEP ---
Subjective Subjective Date of Service: 06/11/22 Principal diagnosis: ZIOLA Interval history: Seen and examined,venessa campos ntoed Physical Exam Vital Signs: Vital Signs: Last Vital Signs Temp 96.4 F L 06/11/22 11:14 Pulse 74 06/11/22 11:14 Resp 20 06/11/22 11:14 BP 140/80 H 06/11/22 11:14 Pulse Ox 98 06/11/22 11:14 O2 Del Method 06/11/22 11:14 BMI result Body Mass Index 40.6 Const: General: cooperative, healthy appearing and no acute distress Orientation/consciousness: patient oriented x3 Limitations: no limitations HEENT: Head: Yes normal to inspection and Yes atraumatic Ears: hearing grossly normal bilaterally General nose exam: Normal external nose present and Epistaxis present on the right anterior source, active bleeding and source not visualized Face and sinus: Yes normal facial exam Mouth: Normal oral and palatal mucosa present and no muffled voice Teeth and gingiva: dentition normal Throat: Yes posterior oropharynx normal, Yes tonsils normal, Yes uvula midline, No peritonsillar mass, No postnasal drainage and No uvular edema Eyes: General: appearance normal, both eyes and all related structures Pupils: Equal, round and reactive pupils present EOM: EOMs intact bilaterally Neck: Neck: Yes normal visual inspection and Yes no meningeal signs Resp: Effort & Inspection: normal respiratory effort and no respiratory distress Auscultation: clear to auscultation bilaterally Cardio: Rate: regular rate Rhythm: regular rhythm Heart sounds: S1 normal heart sound present and S2 normal heart sound present GI: Inspection: Yes normal to inspection Palpation (GI): Soft to palpation, nontender, no guarding and not rigid : General: Yes no CVA tenderness Back/Spine/Pelvis: Back: no CVA tenderness Skin: General skin exam: no rashes or lesions noted Rashes: no rashes Wounds: no wounds Neuro: General: patient oriented x3, tone normal, moves all extremities and no meningeal signs Cranial nerves: Yes Equal, round and reactive pupils present Gait exam (Neuro): Normal gait present Extrem: General: Yes normal to inspection Psych: Appearance: grossly normal Objective Data Labs CBC & Chem 7: 06/11/22 05:22 06/11/22 05:22 Labs: Laboratory Results - last 24 hr 06/10/22 06/10/2222 05:37 11:26 17:59 WBC RBC Hgb Hct MCV MCH MCHC RDW Plt Count MPV Absolute Nucleated RBC Nucleated RBC % (auto) Sodium Potassium Chloride Carbon Dioxide Anion Gap BUN Creatinine Estim Creat Clear Calc Estimated GFR POC Glucose 137 H 148 H Fasting Glucose Calcium Iron 54 TIBC 202 L % Saturation 27 Unsat Iron Binding 148 Ferritin 567 H 06/10/22 06/11/22 06/11/22 20:14 05:22 05:22 WBC 2.5 L RBC 2.34 L Hgb 7.4 L Hct 21.8 L MCV 93.2 MCH 31.6 MCHC 33.9 RDW 14.7 Plt Count 131 L MPV 9.7 Absolute Nucleated RBC 0.000 Nucleated RBC % (auto) 0.0 Sodium 138 Potassium 4.2 Chloride 106 Carbon Dioxide 22 Anion Gap 14 BUN 37 H Creatinine 2.11 H Estim Creat Clear Calc 31.9 Estimated GFR 31 POC Glucose 211 H Fasting Glucose 177 H Calcium 8.1 L Iron TIBC % Saturation Unsat Iron Binding Ferritin 06/11/22 06/11/22 07:49 10:49 WBC RBC Hgb Hct MCV MCH MCHC RDW Plt Count MPV Absolute Nucleated RBC Nucleated RBC % (auto) Sodium Potassium Chloride Carbon Dioxide Anion Gap BUN Creatinine Estim Creat Clear Calc Estimated GFR POC Glucose 173 H 256 H Fasting Glucose Calcium Iron TIBC % Saturation Unsat Iron Binding Ferritin Procedures Date of Service Date of Service: 06/11/22 Assessment & Plan Assessment and plan (1) Rhabdomyolysis: Status: Acute (2) Epistaxis: Status: Acute Plan 1. ZOILA: imporved with IVF and med adjsutment 2. CKD 3: unclear what his true BSL is--suspect 1.5-2.0 and has f/u as oupt --suspect CNI Ntoxicity from tacro over the years 3. Liver Xplant: approx 5 yrs ago; followed yearly 4. Anemia: multifact with blood loss and EPO def state; Fe stores ok REC: xfuse 1 uprbc; procrit as ordered; track renal func I will arrange lose f/u as outpt once d/c'd Time Spent With Patient Time: Total time spent is greater than 50% in coordination of care (as documented) at patient's floor/unit and/or counseling patient: Progress Note: Quality Stroke Does the patient have a stroke diagnosis?: No
--- NOTE | 2022-06-11 11:37 | PM.DS ---
DS: Providers Provider Date of Service: 06/11/22 Date of admission: 06/09/22 13:12 Primary care physician: Sherif Oconnor III, MD Consults: 06/09/22 13:10 Consult to Infectious Diseases Routine Consulting Provider: Belkis Healy Reason for consultation: Bacteremia on Daptomycin with elevated CPK 06/09/22 14:56 Consult to Nephrology Routine Consulting Provider: Lexx Ramirez Reason for consultation: ZOILA on CKD for eval and rec. DS: Diagnosis Discharge Diagnosis (1) Rhabdomyolysis: Status: Acute (2) Epistaxis: Status: Acute DS: Summary Hospital Course Hospital Course: from initial hpi: Chief Complaint: Epistaxis A 71 years old with PMH significant for non-alcoholic cirrhosis s/p liver transplant 5 years ago on tacrolimas, severe aortic stenosis, noninsulin dependent type 2 diabetes, hld, osteomyelitis spine with recent admission for GI bleed, home going osteomyelitis of the spine with bacteremia PICC in place for IV daptomycin? discharge on 06/07 post GI bleed, acute anemia and Zoila I on CKD. who presents to the hospital ? 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 The patient reports waking up bleeding from his nose.? Denies any chest pain, palpitation, hematuria, blood with stool, nausea, vomiting, change in bowel habit or urinary symptoms.? Blood work was consistent with Zoila I on CKD along with elevated CPK.? Admitted for further evaluation and treatment. hospital course: Patient was admitted with epistaxis complicated by acute blood loss anemia. He was treated with rhino rocket, Afrin as needed, holding Eliquis. He did not require transfusion, hemoglobin is 7.4 discharge patient is asymptomatic. He should hold Eliquis for 1 week and follow up with primary care to determine exact timing for rechallenging. Patient was also noted to have acute kidney injury on CKD 4 due to dehydration and mild rhabdomyolysis associated with daptomycin. He improved to baseline with IV hydration and discontinue daptomycin. He will complete his antibiotic course with cefazolin, to be completed 06/30/2022. First chronic diastolic CHF with severe aortic stenosis his Lasix was held for hydration, he is now euvolemic and can restart maintenance. For his recent duodenal ulcer he will continue PPI. First paroxysmal atrial fibrillation his Eliquis is on hold. For his diabetes he was continued insulin. First history of cirrhosis status post liver transplant complicated by pancytopenia he was continued on tacrolimus. For his hypertension he was continued on amlodipine and clonidine. Patient is feeling better will be discharged home. Time Spent with Patient Time attestation: Total time spent providing and/or coordinating discharge services: Discharge coordination time: Greater than 30 minutes Quality: Safe Use of Opioids Does Pt have an Active Cancer Diagnosis on the Problem List?: No Quality: Stroke Does the patient have a stroke diagnosis?: No Physical Exam Vital Signs: Vital Signs: Last Vital Signs Temp 96.4 F L 06/11/22 11:14 Pulse 74 06/11/22 11:14 Resp 20 06/11/22 11:14 BP 140/80 H 06/11/22 11:14 Pulse Ox 98 06/11/22 11:14 O2 Del Method 06/11/22 11:14 BMI result Body Mass Index 40.6 Const: General: cooperative, healthy appearing and no acute distress Orientation/consciousness: patient oriented x3 Limitations: no limitations HEENT: Head: Yes normal to inspection and Yes atraumatic Ears: hearing grossly normal bilaterally General nose exam: Normal external nose present and Epistaxis present on the right anterior source, active bleeding and source not visualized Face and sinus: Yes normal facial exam Mouth: Normal oral and palatal mucosa present and no muffled voice Teeth and gingiva: dentition normal Throat: Yes posterior oropharynx normal, Yes tonsils normal, Yes uvula midline, No peritonsillar mass, No postnasal drainage and No uvular edema Eyes: General: appearance normal, both eyes and all related structures Pupils: Equal, round and reactive pupils present EOM: EOMs intact bilaterally Neck: Neck: Yes normal visual inspection and Yes no meningeal signs Resp: Effort & Inspection: normal respiratory effort and no respiratory distress Auscultation: clear to auscultation bilaterally Cardio: Rate: regular rate Rhythm: regular rhythm Heart sounds: S1 normal heart sound present and S2 normal heart sound present GI: Inspection: Yes normal to inspection Palpation (GI): Soft to palpation, nontender, no guarding and not rigid : General: Yes no CVA tenderness Back/Spine/Pelvis: Back: no CVA tenderness Skin: General skin exam: no rashes or lesions noted Rashes: no rashes Wounds: no wounds Neuro: General: patient oriented x3, tone normal, moves all extremities and no meningeal signs Cranial nerves: Yes Equal, round and reactive pupils present Gait exam (Neuro): Normal gait present Extrem: General: Yes normal to inspection Psych: Appearance: grossly normal DS: Data Data Completed and Pending Completed studies during hospitalization [Text1]: Procedures Control Bleeding in Gastrointestinal Tract, Via Natural or Artificial Opening Endoscopic (06/02/22) Excision of Duodenum, Via Natural or Artificial Opening Endoscopic, Diagnostic (05/22/22) Excision of Stomach, Pylorus, Via Natural or Artificial Opening Endoscopic, Diagnostic (05/22/22) Insertion of Infusion Device into Superior Vena Cava, Percutaneous Approach (05/22/22) Introduction of Mineral-based Topical Hemostatic Agent into Upper GI, Via Natural or Artificial Opening Endoscopic, [employer] 6 (06/02/22) Transfusion of Nonautologous Red Blood Cells into Peripheral Vein, Percutaneous Approach (06/02/22) Ultrasonography of Superior Vena Cava, Guidance (05/22/22) Labs on day of discharge: Laboratory Results - last 24 hr 06/10/22 06/10/22 06/10/22 05:37 17:59 20:14 WBC RBC Hgb Hct MCV MCH MCHC RDW Plt Count MPV Absolute Nucleated RBC Nucleated RBC % (auto) Sodium Potassium Chloride Carbon Dioxide Anion Gap BUN Creatinine Estim Creat Clear Calc Estimated GFR POC Glucose 148 H 211 H Fasting Glucose Calcium Ferritin 567 H 06/11/22 06/11/22 06/11/22 05:22 05:22 07:49 WBC 2.5 L RBC 2.34 L Hgb 7.4 L Hct 21.8 L MCV 93.2 MCH 31.6 MCHC 33.9 RDW 14.7 Plt Count 131 L MPV 9.7 Absolute Nucleated RBC 0.000 Nucleated RBC % (auto) 0.0 Sodium 138 Potassium 4.2 Chloride 106 Carbon Dioxide 22 Anion Gap 14 BUN 37 H Creatinine 2.11 H Estim Creat Clear Calc 31.9 Estimated GFR 31 POC Glucose 173 H Fasting Glucose 177 H Calcium 8.1 L Ferritin 06/11/22 10:49 WBC RBC Hgb Hct MCV MCH MCHC RDW Plt Count MPV Absolute Nucleated RBC Nucleated RBC % (auto) Sodium Potassium Chloride Carbon Dioxide Anion Gap BUN Creatinine Estim Creat Clear Calc Estimated GFR POC Glucose 256 H Fasting Glucose Calcium Ferritin Discharge Plan Discharge Patient Disposition: Home Health Service Discharge Diagnosis: rhabdo, epistaxis Referrals: Sherif Oconnor III, MD [Primary Care Provider] - 1 Week Discharge Medications: New cefazolin 1 gram recon soln 1 g IV Q8H 20 Days Qty: 25 0RF Continued multivitamin Tablet 1 tab PO DAILY sennosides [senna] 8.6 mg Tablet 17.2 mg PO BEDTIME ascorbic acid (vitamin C) [Vitamin C] 500 mg Tablet 500 mg PO DAILY docusate sodium [Colace] 100 mg Capsule 100 mg PO BID cholecalciferol (vitamin D3) [Vitamin D3] 25 mcg (1,000 unit) Tablet 25 mcg PO DAILY omeprazole 20 mg Capsule,Delayed Release(Dr/Ec) 20 mg PO BID@0630,1630 Qty: 60 0RF amlodipine 10 mg tablet 10 mg PO DAILY atorvastatin 20 mg tablet 20 mg PO BEDTIME clonidine HCl 0.1 mg tablet 0.1 mg PO BID lisinopril 2.5 mg tablet 2.5 mg PO DAILY repaglinide 0.5 mg tablet 0.5 mg PO TIDAC Januvia 50 mg tablet 50 mg PO DAILY tacrolimus 1 mg capsule 1 mg PO BID sucralfate 1 gram Tablet 1 g PO BIDAC Qty: 60 0RF furosemide 80 mg tablet 40 mg PO DAILY Held Eliquis 5 mg Tablet 5 mg PO BID Qty: 60 0RF Hold Instructions: Resume on 06/17/22. hold for 1 week, follow up with pcp to determine exact date to restart Discontinued daptomycin 500 mg recon soln 500 mg IV Q24H 42 Days Qty: 10 0RF Rx Instructions: administer over 30 mins Discharge Orders: Discharge Order (Routine); Ordered 06/11/22 Ordered By: Feliz [place] Diet: Diabetic diet Activity on Discharge: As tolerated Stand Alone Forms: Patient Portal Discharge page Care Plan Goals: recovery, avoid bleeding Health Concerns: rhabdo, epistaxis Plan of Treatment: hold eliquis for about 1 week, follow up with pcp regarding when to rechallenge, stop dapto, now changed to cefazolin, conitnue antibiotics until 06/30/22 Assessment: see above
--- NOTE | 2022-06-11 12:10 | MHC.CM.PN ---
PATIENT IS RETURNING HOME TODAY WITH RESUMPTION OF [facility] AND [facility] ABX WAS CHANGED TO CEFAZOLIN 1 G Q8H TID. RN AWARE OF PLAN.
--- NOTE | 2022-06-11 14:02 | P.CDIC_ITS ---
CDI Concurrent Query Documentation Clarification: PHYSICIAN'S DOCUMENTATION REQUEST Date of Query: 06/11/22 4818 Patient Name: Boaz Wells Admit Date: 06/09/22 Dear Doctor, A review of the medical record indicates additional documentation may be needed. Please review below and update the documentation accordingly. Clinical Indicators: On 06/10/22 in the provider progress note there was a diagnosis of pancytopenia. Is there a link that correlates with the findings below: Risk Factors/Clinical Indicators/Treatments Per provider progress note on 06/10: H/o cirrhosis s/p liver transplant complicated by pancytopenia Continue tacrolimus Medications: Patient on tacrolimus routinely LABS: WBCs - 2.5 Based on the above, could you clarify in the Progress Notes the appropriate diagnosis, if significant, that supports the above abnormalities and additional evaluation, monitoring, and/or treatment rendered: * Drug-induced pancytopenia * Antineoplastic chemotherapy induced pancytopenia * Labs indicate a diagnosis of (please specify) * Other (please specify) * Unable to determine Use of terms such as suspected, likely, concern for, or probable (associated with a specific diagnosis that is being evaluated, monitored, or treated as if it exists) are acceptable and can be coded in the inpatient setting, when documented at the time of discharge. Thank you, Susan Cueva MS, RN, CCRN Extension: [phone] Please use your independent medical judgment in providing your response. THIS QUERY IS PART OF THE PERMANENT MEDICAL RECORD Provider Response: Other Other Diagnosis: due to history of cirrhosis
--- NOTE | 2022-06-11 14:21 | P.CDIC_ITS ---
CDI Concurrent Query Documentation Clarification: PHYSICIAN'S DOCUMENTATION REQUEST Date of Query: 06/11/22 1422 Patient Name: Boaz Wells Admit Date: 06/09/22 Dear Doctor, A review of the medical record indicates additional documentation may be needed. Please review below and update the documentation accordingly. Clinical Indicators: Is there a diagnosis that correlates with the findings below: Risk Factors/Clinical Indicators/Treatments BMI: 40.6 Height: 5ft 1in Weight: 97.522kg If possible, please provide an associated diagnosis related to the abnormal BMI, such as: For a BMI >= 40: * Severe or Morbid Obesity * Obesity * Due to excess calories * Drug induced * Due to other cause Or: * BMI is not significant * Other (please specify) * Unable to determine Use of terms such as suspected, likely, concern for, or probable (associated with a specific diagnosis that is being evaluated, monitored, or treated as if it exists) are acceptable and can be coded in the inpatient setting, when documented at the time of discharge. Thank you, Susan Cueva MS, RN, CCRN Extension: [phone] Please use your independent medical judgment in providing your response. THIS QUERY IS PART OF THE PERMANENT MEDICAL RECORD Provider Response: Other Other Diagnosis: ? accuracy of height and weight
[2022-06-11 16:20] LABS: Glucose, Whole Blood 190 mg/dL (60-115)
[2022-06-11] MEDS: Heparin Sodium,Porcine Flush 50 UNITS, 0.9 % Sodium Chloride Flush 5 ML IVFLUSH ×2 (16:30→22:06)
[2022-06-11 16:57] LABS: Tacrolimus Prograf 3.6 mcg/L
--- NOTE | 2022-06-11 18:58 | PM.EVENT ---
Event Note Date of Service: 06/11/22 Event Note: PT could not go due to some misunderstanding about home infusion of Abx tonight and potential to miss doses
[2022-06-11 20:01] LABS: Glucose, Whole Blood 213 mg/dL (60-115)
[2022-06-11] MEDS: Sennosides 8.6 MG TABLET 17.2 MG PO (22:05)
[2022-06-12 03:04] VITALS: BP 147/72; PULSE 67; RESP 17; TEMP 37.7; O2SAT 96
[2022-06-12] MEDS: Heparin Sodium,Porcine Flush 50 UNITS, 0.9 % Sodium Chloride Flush 5 ML IVFLUSH (05:49)
[2022-06-12] MEDS: Omeprazole 20 MG CAPSULE.DR PO (05:50)
[2022-06-12 07:44] LABS: Glucose, Whole Blood 159 mg/dL (60-115)
[2022-06-12 07:46] VITALS: BP 151/70; PULSE 70; RESP 18; TEMP 37; O2SAT 97
[2022-06-12] MEDS: Insulin Lispro 100 UNIT/ML 3 ML VIAL SUBCUT ×2 (08:08→11:34)
[2022-06-12] MEDS: Cholecalciferol (Vitamin D3) 25 MCG TABLET PO (08:09)
[2022-06-12] MEDS: Tacrolimus 1 MG CAPSULE PO (08:09)
[2022-06-12] MEDS: cloNIDine HCL 0.1 MG TABLET PO (08:09)
[2022-06-12] MEDS: amLODIPine Besylate 10 MG TABLET PO (08:09)
[2022-06-12] MEDS: Sucralfate 1 GM TABLET PO (08:09)
[2022-06-12] MEDS: SITagliptin Phosphate 50 MG TABLET PO (08:09)
[2022-06-12] MEDS: Multivitamin TABLET 1 TAB PO (08:09)
[2022-06-12] MEDS: Docusate Sodium 100 MG CAPSULE PO (08:09)
[2022-06-12 11:15] LABS: Glucose, Whole Blood 204 mg/dL (60-115)
[2022-06-12 11:21] VITALS: BP 141/74; PULSE 69; RESP 20; TEMP 36.6; O2SAT 98
--- NOTE | 2022-06-12 12:16 | MHC.CM.PN ---
PT TO DISCHARGE HOME TODAY WITH [facility]. [facility] HAS DELIVERED PTS NEW MEDICATIONS AND SUPPLIES AND CONFIRMED ADMINISTRATION METHOD IS THE SAME PREVIOUS MED CM MET WITH PT AND IN ROOM PTS CONFIRMS SHE ADMINISTERS PTS MEDS AND FEELS COMFORTABLE DOING IT WITH THE NEW MED AND DOSING SCHEDULE THEY REPORT THE MD TOLD THEM TO STAY UNTIL PT COMPLETES HIS 1400 HOUR DOSE AND HE WILL DC RIGHT AFTER WILL TRANSPORT
[2022-06-12 14:47] LABS: Kappa Light Chain, Free Serum 165.1 mg/L (3.3-19.4); Kappa/Lambda Lt Ch Free Ratio 1.62 (0.26-1.65); Lambda Light Chain, Free Serum 101.7 mg/L (5.7-26.3)
== END 2022-06-12 14:14 | disposition home health service (06) | DRG 469 ==
LOC: HO.ED 11:09 → HO.EDOVER 13:41 → HO.S3 06-10 18:11
PROVIDERS: Internal Medicine Nephrology; Physician Assistant; Admitting Provider Student in an Organized Health Care Education/Training Program; Emergency Provider Emergency Medicine; PCP Internal Medicine; Visit Provider Internal Medicine
DX: N17.9 Acute kidney failure, unspecified (principal); D61.818 Other pancytopenia; D84.821 Immunodeficiency due to drugs; R78.81 Bacteremia; D62 Acute posthemorrhagic anemia; D63.1 Anemia in chronic kidney disease; K26.9 Duodenal ulcer, unspecified as acute or chronic, without hemorrhage or perforation; I48.0 Paroxysmal atrial fibrillation; E86.0 Dehydration; M62.82 Rhabdomyolysis; E11.22 Type 2 diabetes mellitus with diabetic chronic kidney disease; N18.4 Chronic kidney disease, stage 4 (severe); E11.69 Type 2 diabetes mellitus with other specified complication; I13.0 Hypertensive heart and chronic kidney disease with heart failure and stage 1 through stage 4 chronic kidney disease, or unspecified chronic kidney disease; I50.32 Chronic diastolic (congestive) heart failure; M46.27 Osteomyelitis of vertebra, lumbosacral region; R04.0 Epistaxis; T45.1X5A Adverse effect of antineoplastic and immunosuppressive drugs, initial encounter; T36.8X5A Adverse effect of other systemic antibiotics, initial encounter; N14.2 Nephropathy induced by unspecified drug, medicament or biological substance; I35.0 Nonrheumatic aortic (valve) stenosis; K21.9 Gastro-esophageal reflux disease without esophagitis; B95.61 Methicillin susceptible Staphylococcus aureus infection as the cause of diseases classified elsewhere; Z20.822 Contact with and (suspected) exposure to COVID-19; Z94.4 Liver transplant status; Z91.010 Allergy to peanuts; Z88.0 Allergy status to penicillin; Z79.01 Long term (current) use of anticoagulants; Z79.899 Other long term (current) drug therapy
CPT/HCPCS: 36415; 71045; 80048; 80076; 80197; 81001; 82550; 82728; 82947; 83521; 83540; 83735; 83880; 84300; 85025; 85027; 85610; 87635; 99284; J0690; J0885; J1642; J2997

== ENCOUNTER 2022-06-29 14:05 | Outpatient (REF) | payer OTHER, SELFPAY ==
[2022-06-29 15:45] LABS: Hematocrit 25.7 % (42.0-52.0); Hemoglobin 8.3 g/dl (14.0-18.0); Mean Corpuscular HGB Conc 32.3 g/dl (31.0-36.0); Mean Corpuscular Hemoglobin 30.9 pg (27.0-33.0); Mean Corpuscular Volume 95.5 fL (80.0-98.0); Mean Platelet Volume 9.9 fL (9.4-12.4); Platelet Count 111 X10*3/uL (160-400); Red Blood Count 2.69 X10*6/uL (4.60-5.80); Red Cell Distribution Width 16.4 % (11.0-16.0)
[2022-06-29 15:46] LABS: White Blood Count 1.8 X10*3/uL (4.8-10.8)
[2022-06-29 16:10] LABS: Anion Gap 16 (12-20); Blood Urea Nitrogen 32 mg/dL (9-16); Calcium 8.4 mg/dL (8.4-10.2); Carbon Dioxide 19 mmol/L (22-29); Chloride 109 mmol/L (96-108); Estimated Glomerular Filt Rate 36; Glucose Random 163 mg/dL (60-115); Potassium 4.2 mmol/L (3.3-5.1); Sodium 140 mmol/L (135-145)
[2022-06-29 16:20] LABS: Erythrocyte Sedimentation Rate 92 MM/HR (0-15)
== END 2022-06-29 14:06 | disposition home or self-care (01) ==
LOC: HO.LAB 14:05
PROVIDERS: Student in an Organized Health Care Education/Training Program; PCP Internal Medicine; Visit Provider Internal Medicine
DX: R78.81 Bacteremia (principal); B95.61 Methicillin susceptible Staphylococcus aureus infection as the cause of diseases classified elsewhere; N17.9 Acute kidney failure, unspecified; D62 Acute posthemorrhagic anemia
CPT/HCPCS: 36415; 80048; 85027; 85652; 87040

== ENCOUNTER 2022-07-14 08:51 | Outpatient (REF) | payer OTHER, SELFPAY ==
[2022-07-14 09:55] LABS: Hematocrit 26.4 % (42.0-52.0); Hemoglobin 8.9 g/dl (14.0-18.0); Mean Corpuscular HGB Conc 33.7 g/dl (31.0-36.0); Mean Corpuscular Hemoglobin 31.2 pg (27.0-33.0); Mean Corpuscular Volume 92.6 fL (80.0-98.0); Mean Platelet Volume 9.8 fL (9.4-12.4); Platelet Count 131 X10*3/uL (160-400); Red Blood Count 2.85 X10*6/uL (4.60-5.80); Red Cell Distribution Width 15.2 % (11.0-16.0); White Blood Count 3.3 X10*3/uL (4.8-10.8)
[2022-07-14 09:56] LABS: INTERNATIONAL NORM RATIO 1.1 (0.9-1.1); Prothrombin Time 12.9 SEC (10.0-13.1)
[2022-07-14 10:23] LABS: Anion Gap 17 (12-20); Blood Urea Nitrogen 30 mg/dL (9-16); Calcium 8.6 mg/dL (8.4-10.2); Carbon Dioxide 21 mmol/L (22-29); Chloride 107 mmol/L (96-108); Estimated Glomerular Filt Rate 32; Glucose Random 178 mg/dL (60-115); Potassium 4.4 mmol/L (3.3-5.1); Sodium 141 mmol/L (135-145)
== END 2022-07-14 08:52 | disposition home or self-care (01) ==
LOC: HO.LAB 08:51
PROVIDERS: PCP Internal Medicine; Visit Provider Internal Medicine
DX: I35.0 Nonrheumatic aortic (valve) stenosis (principal)
CPT/HCPCS: 36415; 80048; 85027; 85610

== ENCOUNTER → 2022-08-27 07:08 | Outpatient (REF) | payer OTHER, SELFPAY ==
--- NOTE | 2022-08-27 07:38 | HM_ITS ---
Conclusion: 1. Patient was monitored for total period of 5 days and 4 hours 2. Baseline was normal sinus rhythm with average heart of 63 beats per minute 3. Frequent sinus bradycardia with 49% of time heart rate below 60 beats per minute 4. No significant pauses noted 5. Total of 2813 PACs accounting for 0.6% of total beats account for occasional PACs 6. No patient reported events MTDD
== END ==
LOC: HO.CARD 07:08
PROVIDERS: PCP Internal Medicine; Visit Provider Internal Medicine
DX: I48.0 Paroxysmal atrial fibrillation (principal); I35.0 Nonrheumatic aortic (valve) stenosis
CPT/HCPCS: 93242

== ENCOUNTER 2022-09-03 07:55 | Outpatient (REF) | payer OTHER, SELFPAY ==
[2022-09-03 08:06] LABS: MANUAL DIFF FLAG NO
[2022-09-03 08:14] LABS: Basophils Percent Auto 0.8 % (0-2); Eosinophils Absolute Auto 0.1 X10*3/uL (0.0-0.4); Eosinophils Percent Auto 1.8 % (0-4); Hematocrit 28.7 % (42.0-52.0); Hemoglobin 9.7 g/dl (14.0-18.0); Imm Gran Abs Auto 0.01 X10*3/uL (0.00-0.03); Imm Gran Pct Auto 0.3 % (0.0-0.4); Lymphocytes Percent Auto 52.2 % (20-40); Mean Corpuscular HGB Conc 33.8 g/dl (31.0-36.0); Mean Corpuscular Hemoglobin 31.6 pg (27.0-33.0); Mean Corpuscular Volume 93.5 fL (80.0-98.0); Monocytes Absolute Auto 0.3 X10*3/uL (0.1-1.2); Monocytes Percent Auto 6.5 % (2-11); Neutrophils Absolute Auto 1.5 x10*3/uL (2.0-8.3); Neutrophils Percent Auto 38.4 % (45-73); Platelet Count 124 X10*3/uL (160-400); Red Blood Count 3.07 X10*6/uL (4.60-5.80); Red Cell Distribution Width 14.5 % (11.0-16.0); White Blood Count 3.9 X10*3/uL (4.8-10.8)
[2022-09-03 08:38] LABS: Anion Gap 11 (12-20); Blood Urea Nitrogen 43 mg/dL (9-16); Calcium 8.8 mg/dL (8.4-10.2); Carbon Dioxide 22 mmol/L (22-29); Chloride 111 mmol/L (96-108); Estimated Glomerular Filt Rate 27; Glucose Random 135 mg/dL (60-115); Potassium 5.3 mmol/L (3.3-5.1); Sodium 139 mmol/L (135-145)
== END 2022-09-03 07:56 | disposition home or self-care (01) ==
LOC: HO.LAB 07:55
PROVIDERS: PCP Internal Medicine; Visit Provider Internal Medicine Interventional Cardiology
DX: I35.0 Nonrheumatic aortic (valve) stenosis (principal)
CPT/HCPCS: 36415; 80048; 85025

== ENCOUNTER 2022-09-11 08:16 | Outpatient (REF) | payer OTHER, SELFPAY ==
[2022-09-11 10:11] LABS: Estimated Average Glucose 120 mg/dL; Hemoglobin A1c % 5.8 %
== END 2022-09-11 08:17 | disposition home or self-care (01) ==
LOC: HO.LAB 08:16
PROVIDERS: PCP Internal Medicine; Visit Provider Internal Medicine Endocrinology, Diabetes & Metabolism
DX: E11.65 Type 2 diabetes mellitus with hyperglycemia (principal)
CPT/HCPCS: 36415; 83036

== ENCOUNTER 2022-11-18 08:21 | Outpatient (REF) | payer OTHER, SELFPAY ==
[2022-11-18 08:41] LABS: MANUAL DIFF FLAG NO
[2022-11-18 09:03] LABS: Basophils Percent Auto 0.6 % (0-2); Eosinophils Absolute Auto 0.1 X10*3/uL (0.0-0.4); Eosinophils Percent Auto 2.1 % (0-4); Hematocrit 29.6 % (42.0-52.0); Hemoglobin 9.9 g/dl (14.0-18.0); Imm Gran Abs Auto 0.01 X10*3/uL (0.00-0.03); Imm Gran Pct Auto 0.3 % (0.0-0.4); Lymphocytes Absolute Auto 1.3 X10*3/uL (1.2-4.9); Lymphocytes Percent Auto 37.4 % (20-40); Mean Corpuscular HGB Conc 33.4 g/dl (31.0-36.0); Mean Corpuscular Hemoglobin 31.7 pg (27.0-33.0); Mean Corpuscular Volume 94.9 fL (80.0-98.0); Mean Platelet Volume 9.7 fL (9.4-12.4); Monocytes Absolute Auto 0.2 X10*3/uL (0.1-1.2); Monocytes Percent Auto 6.6 % (2-11); Neutrophils Absolute Auto 1.8 x10*3/uL (2.0-8.3); Platelet Count 183 X10*3/uL (160-400); Red Blood Count 3.12 X10*6/uL (4.60-5.80); Red Cell Distribution Width 15.7 % (11.0-16.0); White Blood Count 3.3 X10*3/uL (4.8-10.8)
[2022-11-18 10:01] LABS: Albumin Level 3.5 g/dL (3.5-5.0); Anion Gap 14 (12-20); Blood Urea Nitrogen 33 mg/dL (9-16); Carbon Dioxide 18 mmol/L (22-29); Chloride 113 mmol/L (96-108); Estimated Glomerular Filt Rate 35; Iron 65 mcg/dL (45-160); Magnesium 1.8 mg/dL (1.6-2.6); Percent Iron Saturation 32 % (15-50); Phosphorus 3.4 mg/dL (2.7-4.5); Potassium 4.7 mmol/L (3.3-5.1); Sodium 140 mmol/L (135-145); Total Iron Binding Capacity 205 mcg/dL (228-428); Unsaturated Iron Binding 140 ug/dL
[2022-11-18 10:19] LABS: Ferritin 291 ng/mL (20-250)
[2022-11-18 12:01] LABS: Appearance Urine Clear; Color Urine Yellow; Glucose Urine UA Negative (Negative); Leukocyte Esterase Urine Trace (Negative); Nitrite Urine Negative (Negative); Specific Gravity - Urine 1.025 (1.005-1.025); UMIC TRIGGER UA YES; Urine Blood Negative (Negative); Urine Ketones Negative (Negative); Urine Protein Negative (Neg-Trace)
[2022-11-18 12:11] LABS: Bacteria Urine None Seen (None Seen); Hyaline Casts Urine 0-2 /LPF (0-2); Squamous Epithelial Cell Urine 0-2 /HPF (0-2); WBC Urine 0-5 /HPF (0-5)
[2022-11-18 12:36] LABS: Creatinine Urine 243.58 mg/dL; Microalbum/Creatinine Ratio Ur 13.5 ug/mg cr; Protein/Creatinine Ratio, Ur 0.06 (<0.2); Total Protein Urine Random 14 mg/dL (<12)
[2022-11-20 13:19] LABS: Calcium (PTHI) 8.6 mg/dL (8.6-10.3); PTHI 77 pg/mL (16-77)
== END 2022-11-18 08:22 | disposition home or self-care (01) ==
LOC: HO.LAB 08:21
PROVIDERS: PCP Internal Medicine; Visit Provider Internal Medicine Nephrology
DX: E11.22 Type 2 diabetes mellitus with diabetic chronic kidney disease (principal); N18.32 Chronic kidney disease, stage 3b; K72.10 Chronic hepatic failure without coma; Z79.899 Other long term (current) drug therapy
CPT/HCPCS: 36415; 80051; 81001; 82040; 82043; 82310; 82565; 82728; 83540; 83735; 83970; 84100; 84156; 84520; 85025; 87086

== ENCOUNTER → 2022-11-30 07:51 | Outpatient (BNVA) | payer OTHER, SELFPAY | PROVIDERS: PCP Internal Medicine; Visit Provider Internal Medicine | DX: Z13.89 Encounter for screening for other disorder (principal) ==

== ENCOUNTER → 2022-12-09 10:49 | Outpatient (REF) | payer OTHER, SELFPAY ==
--- NOTE | 2022-12-09 10:51 | CA_ITS ---
Transthoracic Echocardiogram Patient (Last, First, Middle): Boaz Wells E Gender: Male Date of : 1950 Age: 72 Procedure Date: 12/09/2022 Procedure Type: Transthoracic Echocardiogram Location: OP Height: 154.94 cm Weight: 91.17 kg BSA: 1.89 m2 Heart Rate: 75 bpm BP: 148 / 60 mmHg Executive Meeting Manager: SB Referring MD: Gabino Palacios MD Symptoms: I35.0 - Nonrheumatic aortic (valve) stenosis Study Quality: Adequate w contrast ECG Rhythm: Sinus Conclusions: - The left ventricular systolic function is hyperdynamic. The visually estimated ejection fraction is >70%. - There is severe aortic valve stenosis. Findings Procedure Information Contrast agent, definity, is being given per protocol without apparent complications. Left Ventricle Normal left ventricular cavity size. There is mildly increased left ventricular wall thickness. The left ventricular systolic function is hyperdynamic. The visually estimated ejection fraction is >70%. There is no evidence of regional wall motion abnormalities. E/E prime ratio is between 8 and 15 consistent with indeterminate filling pressures. Evidence suggests grade I (mild) diastolic dysfunction. There is severe septal asymmetric hypertrophy. Right Ventricle Normal right ventricular cavity size and systolic function. Atria The left atrium is mildly dilated. The right atrium is normal in size. Aortic Valve There is mild calcification of the aortic valve. There is severe aortic valve stenosis. The peak aortic velocity is 5.49 m/s with a calculated peak gradient of 121 mmHg. The mean gradient is 73 mmHg. The aortic valve area is 0.74 cm2. There is mild aortic valve regurgitation. Mitral Valve There is mild mitral annular calcification. There is no mitral valve regurgitation. There is no mitral valve stenosis. Pulmonic Valve The pulmonic valve is likely normal. Tricuspid Valve There is mild tricuspid valve regurgitation. There is no evidence of pulmonary hypertension. Great Vessels The asc aorta is normal in size. Venous The inferior vena cava is normal in size and collapses greater than 50% with inspiration. Pericardium/Pleural There is no evidence of pericardial effusion. Prior Study Comparison Changes noted compared to prior study dated: 06/03/2022. Aortic stenosis is even worse than last study. Measurements 2D Linear Measurements IVSd: 1.58 0.6-0.9/0.6-1.0 cm LVIDd: 3.81 3.9-5.3/4.2-5.9 cm LVIDd Index: 2.02 2.4-3.2/2.2-3.1 cm/m2 LVIDs: 2.25 2.0-3.6 cm LVPWd: 1.05 0.7-1.1 cm LA Diam: 3.90 2.7-3.8/3.0-4.0 cm LAIDs Index: 2.06 1.5-2.3 cm/m2 LV Mass: 220.25 67-162/88-224 g LV Mass Index: 116.54 43-95/49-115 g/m2 LVOT Diam: 1.90 3.0+(-)1.3 cm 2D Systolic Function EF 4C: 86.70 >55% EF 2C: 89.50 >55% EF BiP: 88.40 >55% Mitral Valve MV Pk E: 0.87 MV PK A: 1.16 MV Decel Time: 334.00 E/A: 0.80 E'Lateral: 9.36 E'Medial: 4.24 E/E' Med: 20.60 E/E' Lat: 9.30 PHT: 98.00 MVA PHT: 2.24 Decel [place]: 2.61 Aortic Valve AoV Pk [place]: 5.49 AoV Mn [place]: 3.88 AoV VTI: 1.21 AoV Pk Grad: 121.00 Aov Mn Grad: 73.00 THOMAS Cont.VTI: 0.74 LVOT LVOT Pk [place]: 1.37 LVOT Mn [place]: 1.00 LVOT VTI: 0.32 LVOT Pk Grad: 8.00 LVOT Mn Grad: 5.00 LVOT Diam: 1.90 LVOT Area: 2.84 Diastolic Function MV Pk E: 0.87 MV Pk A: 1.16 E/A: 0.80 E'Medial: 4.24 E/E' Med: 20.60 E' Laterial: 9.36 E/E' Lat: 9.30 Right Ventricle TAPSE (mm): 22.40 TVS' [place]: 10.90 Tricuspid Valve TR Pk [place]: 2.44 TR Pk Grad: 24.00 RA Press: 3.00 RVSP: 27.00 Great Vessels Aorta Sinus of Valsalva: 2.90 2.0-3.5 cm Ao Asc: 3.40 2.1-3.4 cm Pulmonary Veins Pulm Vein S/D 1.70 Pulmonary Valve PV Pk [place]: 1.30 Peak PV Grad: 7.00 Updated in Other Vendor System with Status of Final Gabino Palacios MD electronically signed on 12/09/2022 12:59:36 PM with status of Final
== END ==
LOC: HO.CARD 10:49
PROVIDERS: PCP Internal Medicine; Visit Provider Internal Medicine
DX: I35.0 Nonrheumatic aortic (valve) stenosis (principal)
CPT/HCPCS: 93306; Q9957

== ENCOUNTER → 2022-12-30 13:25 | Outpatient (BNVA) | payer OTHER, SELFPAY | PROVIDERS: PCP Internal Medicine; Referring Provider Internal Medicine; Visit Provider Internal Medicine | DX: Z13.89 Encounter for screening for other disorder (principal) ==

== ENCOUNTER 2023-01-28 08:50 | Outpatient (REF) | payer OTHER, SELFPAY ==
[2023-01-28 09:06] LABS: MANUAL DIFF FLAG NO
[2023-01-28 09:50] LABS: Basophils Percent Auto 1.2 % (0-2); Eosinophils Absolute Auto 0.2 X10*3/uL (0.0-0.4); Eosinophils Percent Auto 5.2 % (0-4); Hematocrit 25.6 % (42.0-52.0); Hemoglobin 8.6 g/dl (14.0-18.0); Imm Gran Abs Auto 0.02 X10*3/uL (0.00-0.03); Imm Gran Pct Auto 0.6 % (0.0-0.4); Lymphocytes Absolute Auto 1.1 X10*3/uL (1.2-4.9); Lymphocytes Percent Auto 34.5 % (20-40); Mean Corpuscular HGB Conc 33.6 g/dl (31.0-36.0); Mean Corpuscular Hemoglobin 31.7 pg (27.0-33.0); Mean Corpuscular Volume 94.5 fL (80.0-98.0); Mean Platelet Volume 9.6 fL (9.4-12.4); Monocytes Absolute Auto 0.3 X10*3/uL (0.1-1.2); Monocytes Percent Auto 8.6 % (2-11); Neutrophils Absolute Auto 1.6 x10*3/uL (2.0-8.3); Neutrophils Percent Auto 49.9 % (45-73); Platelet Count 184 X10*3/uL (160-400); Red Blood Count 2.71 X10*6/uL (4.60-5.80); Red Cell Distribution Width 15.8 % (11.0-16.0); White Blood Count 3.3 X10*3/uL (4.8-10.8)
[2023-01-28 10:24] LABS: Alanine Aminotransferase 13 U/L (0-40); Albumin Level 3.3 g/dL (3.5-5.0); Alkaline Phosphatase 117 U/L (39-117); Anion Gap 13 (12-20); Aspartate Amino Transferase 20 U/L (5-37); Bilirubin Direct 0.3 mg/dL (0.0-0.5); Bilirubin Total 0.9 mg/dL (0.0-1.0); Blood Urea Nitrogen 42 mg/dL (9-16); Calcium 8.9 mg/dL (8.4-10.2); Carbon Dioxide 20 mmol/L (22-29); Chloride 111 mmol/L (96-108); Estimated Glomerular Filt Rate 28; Glucose Random 187 mg/dL (60-115); Sodium 139 mmol/L (135-145); Total Protein 6.3 g/dL (6.5-8.0)
== END 2023-01-28 08:51 | disposition home or self-care (01) ==
LOC: HO.LAB 08:50
PROVIDERS: Visit Provider Internal Medicine Transplant Hepatology
DX: Z48.23 Encounter for aftercare following liver transplant (principal); Z79.899 Other long term (current) drug therapy
CPT/HCPCS: 36415; 80048; 80076; 80197; 85025

== ENCOUNTER → 2023-02-15 08:36 | Outpatient (REF) | payer OTHER, SELFPAY ==
--- NOTE | 2023-02-15 08:40 | CA_ITS ---
Transthoracic Echocardiogram Patient (Last, First, Middle): Boaz Wells E Gender: Male Date of : 1950 Age: 72 Procedure Date: 02/15/2023 Procedure Type: Transthoracic Echocardiogram Location: OP Height: 152.4 cm Weight: 91.63 kg BSA: 1.87 m2 Heart Rate: 50 bpm BP: 148 / 65 mmHg Trolley Wire Installer: MANUEL Referring MD: Leobardo Stroud MD Symptoms: S/P TRANSAORTIV VALVE REPLACEMENT Study Quality: Adequate with contrast ECG Rhythm: Sinus Conclusions: - The left ventricular systolic function is hyperdynamic. The visually estimated ejection fraction is >70%. - Evidence suggests grade II (moderate) diastolic dysfunction. - A bioprosthetic aortic valve is present. The prosthetic aortic valve appears to be functioning normally. Findings Procedure Information Contrast agent, definity, is being given per protocol with complications as noted. The patient experienced back pain from contrast. Left Ventricle Normal left ventricular cavity size. There is mildly increased left ventricular wall thickness. The left ventricular systolic function is hyperdynamic. The visually estimated ejection fraction is >70%. E/E prime ratio is >15, consistent with elevated filling pressures. Evidence suggests grade II (moderate) diastolic dysfunction. There is moderate septal asymmetric hypertrophy. Right Ventricle Mildly increased right ventricular cavity size. There is normal right ventricular systolic function. Atria The left atrium is mildly dilated. The right atrium is normal in size. Aortic Valve A bioprosthetic aortic valve is present. The prosthetic aortic valve appears to be functioning normally. The mean gradient is 14 mmHg. There is no aortic valve regurgitation. Acceleration time 85ms. Mitral Valve There is mild mitral annular calcification. There is no mitral valve regurgitation. There is no mitral valve stenosis. Pulmonic Valve The pulmonic valve is likely normal. Tricuspid Valve There is trace tricuspid valve regurgitation. There is no evidence of pulmonary hypertension. Great Vessels The asc aorta is normal in size. Venous The inferior vena cava is normal in size and collapses greater than 50% with inspiration. Pericardium/Pleural There is no evidence of pericardial effusion. Prior Study Comparison Changes noted compared to prior study dated: 12/09/2022. s/p TAVR. Measurements 2D Linear Measurements IVSd: 1.42 0.6-0.9/0.6-1.0 cm LVIDd: 4.53 3.9-5.3/4.2-5.9 cm LVIDd Index: 2.42 2.4-3.2/2.2-3.1 cm/m2 LVIDs: 2.26 2.0-3.6 cm LVPWd: 1.09 0.7-1.1 cm LA Diam: 3.60 2.7-3.8/3.0-4.0 cm LAIDs Index: 1.93 1.5-2.3 cm/m2 LV Mass: 266.19 67-162/88-224 g LV Mass Index: 142.35 43-95/49-115 g/m2 LVOT Diam: 2.10 3.0+(-)1.3 cm 2D Systolic Function EF 4C: 76.30 >55% EF 2C: 75.40 >55% EF BiP: 76.20 >55% Mitral Valve MV Pk E: 1.16 MV PK A: 0.99 MV Decel Time: 365.00 E/A: 1.20 E'Lateral: 7.83 E'Medial: 6.09 E/E' Med: 19.00 E/E' Lat: 14.80 PHT: 107.00 MVA PHT: 2.06 Decel [place]: 3.19 Aortic Valve AoV Pk [place]: 2.80 AoV Mn [place]: 1.74 AoV VTI: 0.59 AoV Pk Grad: 31.00 Aov Mn Grad: 14.00 THOMAS Cont.VTI: 2.01 LVOT LVOT Pk [place]: 1.43 LVOT Mn [place]: 1.00 LVOT VTI: 0.35 LVOT Pk Grad: 8.00 LVOT Mn Grad: 4.00 LVOT Diam: 2.10 LVOT Area: 3.46 Diastolic Function MV Pk E: 1.16 MV Pk A: 0.99 E/A: 1.20 E'Medial: 6.09 E/E' Med: 19.00 E' Laterial: 7.83 E/E' Lat: 14.80 Right Ventricle TAPSE (mm): 30.50 TVS' [place]: 13.90 Tricuspid Valve TR Pk [place]: 2.16 TR Pk Grad: 19.00 RA Press: 3.00 RVSP: 22.00 Great Vessels Aorta Ao Asc: 3.70 2.1-3.4 cm Updated in Other Vendor System with Status of Final Gabino Palacios MD electronically signed on 02/17/2023 10:34:22 AM with status of Final
== END ==
LOC: HO.CARD 08:36
PROVIDERS: PCP Internal Medicine; Visit Provider Internal Medicine Interventional Cardiology
DX: Z95.2 Presence of prosthetic heart valve (principal)
CPT/HCPCS: 93306; Q9957

== ENCOUNTER → 2023-03-15 13:22 | Outpatient (BNVA) | payer OTHER, SELFPAY | PROVIDERS: PCP Internal Medicine; Referring Provider Internal Medicine; Visit Provider Internal Medicine | DX: I48.0 Paroxysmal atrial fibrillation (principal); I50.32 Chronic diastolic (congestive) heart failure | CPT/HCPCS: 93005 ==

== ENCOUNTER 2023-03-23 08:42 | Outpatient (REF) | payer OTHER, SELFPAY ==
[2023-03-23 08:59] LABS: MANUAL DIFF FLAG NO
[2023-03-23 09:11] LABS: Eosinophils Absolute Auto 0.1 X10*3/uL (0.0-0.4); Eosinophils Percent Auto 2.8 % (0-4); Hemoglobin 10.4 g/dl (14.0-18.0); Lymphocytes Absolute Auto 1.8 X10*3/uL (1.2-4.9); Lymphocytes Percent Auto 45.4 % (20-40); Mean Corpuscular HGB Conc 34.7 g/dl (31.0-36.0); Mean Corpuscular Hemoglobin 31.8 pg (27.0-33.0); Mean Corpuscular Volume 91.7 fL (80.0-98.0); Mean Platelet Volume 10.1 fL (9.4-12.4); Monocytes Absolute Auto 0.3 X10*3/uL (0.1-1.2); Monocytes Percent Auto 7.7 % (2-11); Neutrophils Absolute Auto 1.7 x10*3/uL (2.0-8.3); Neutrophils Percent Auto 43.1 % (45-73); Platelet Count 126 X10*3/uL (160-400); Red Blood Count 3.27 X10*6/uL (4.60-5.80); Red Cell Distribution Width 14.3 % (11.0-16.0); White Blood Count 3.9 X10*3/uL (4.8-10.8)
[2023-03-23 10:36] LABS: Albumin Level 3.6 g/dL (3.5-5.0); Calcium 9.9 mg/dL (8.4-10.2); Iron 83 mcg/dL (45-160); Magnesium 1.8 mg/dL (1.6-2.6); Percent Iron Saturation 43 % (15-50); Phosphorus 3.7 mg/dL (2.7-4.5); Total Iron Binding Capacity 193 mcg/dL (228-428); Unsaturated Iron Binding 110 ug/dL; Vitamin D 25-OH Total 27.8 ng/mL (>30)
[2023-03-23 10:54] LABS: Appearance Urine Clear; Color Urine Yellow; Glucose Urine UA Negative (Negative); Leukocyte Esterase Urine Trace (Negative); Nitrite Urine Negative (Negative); PH 5.5 (5.0-9.0); Specific Gravity - Urine 1.015 (1.005-1.025); UMIC TRIGGER UA YES; Urine Blood Negative (Negative); Urine Ketones Negative (Negative); Urine Protein Negative (Neg-Trace)
[2023-03-23 10:59] LABS: Bacteria Urine None Seen (None Seen); RBC Urine 0-2 /HPF (0-2); Squamous Epithelial Cell Urine 0-2 /HPF (0-2); WBC Urine 0-5 /HPF (0-5)
[2023-03-23 12:05] LABS: Creatinine Urine 160.76 mg/dL; Microalbum/Creatinine Ratio Ur 6.8 ug/mg cr; Total Protein Urine Random < 7 mg/dL (<12)
[2023-03-24 16:29] LABS: Calcium (PTHI) 9.2 mg/dL (8.6-10.3); PTHI 102 pg/mL (16-77)
== END 2023-03-23 08:43 | disposition home or self-care (01) ==
LOC: HO.LAB 08:42
PROVIDERS: Visit Provider Internal Medicine Nephrology
DX: N18.32 Chronic kidney disease, stage 3b (principal); D63.1 Anemia in chronic kidney disease; N25.0 Renal osteodystrophy; R82.90 Unspecified abnormal findings in urine
CPT/HCPCS: 36415; 81001; 82040; 82043; 82306; 82310; 83540; 83735; 83970; 84100; 84156; 85025; 87086

== ENCOUNTER 2023-03-31 10:15 | Inpatient (IN) | payer OTHER, SELFPAY ==
[2023-03-31 10:26] VITALS: BP 122/66; BP 140/77; PULSE 80; PULSE 85; RESP 18; TEMP 36.6; O2SAT 99; BMI 35.9
--- NOTE | 2023-03-31 10:50 | ED_ITS ---
HPI - General Adult General Chief complaint: Altered Mental Status Stated complaint: confusion x 3 days Time Seen by Provider: 03/31/23 10:50 Source: patient, family (patient's ) and EMS Mode of arrival: EMS Limitations: altered mental status History of Present Illness HPI narrative: Patient is a 72 year old assigned male at with a history of CHF, duodenitis, TAVR, paroxysmal atrial fib, and elevated ammonia presenting to the emergency department today with an altered mental status. Patient's states that the patient has a history of elevated ammonia levels and this is consistent with another ammonia attack . Patient's states that she has been withholding the patients lactulose due to it raising the patient's blood sugar. Patient's states that the patient has become increasingly confused over the last 48 hours. Patient denies any dizziness, lightheadedness, abdominal pain, nausea, vomiting, fever, chills, blurry vision, double vision, loss of vision, chest pain, difficulty breathing, shortness of breath, back pain, night sweats, pain with urination, increased urinary frequency, increased urinary urgency, blood in his urine or stool, syncope or a near syncopal episode, recent trauma or falls, bowel incontinence, bladder incontinence, bowel retention, bladder retention, or any other complaints at this time. Onset (ago): day(s) (2) Severity: mild Relieving factors: none Exacerbating factors: none Associated symptoms: confusion Treatments prior to arrival: none Related Data Home Medications Medication Instructions Recorded Confirmed amlodipine 10 mg tablet 10 mg PO DAILY 03/31/23 03/31/23 apixaban 5 mg tablet (Eliquis) 5 mg PO BID 03/31/23 03/31/23 ascorbic acid (vitamin C) 500 mg 500 mg PO DAILY 03/31/23 03/31/23 tablet atorvastatin 20 mg tablet 20 mg PO DAILY 03/31/23 03/31/23 docusate sodium 100 mg capsule 100 mg PO BID 03/31/23 03/31/23 (Colace) ferrous sulfate 325 mg (65 mg 325 mg PO DAILY 03/31/23 03/31/23 iron) tablet furosemide 40 mg tablet 40 mg PO DAILY 03/31/23 03/31/23 lactulose 10 gram/15 mL oral 30 ml PO TID 03/31/23 03/31/23 solution lisinopril 2.5 mg tablet 2.5 mg PO DAILY 03/31/23 03/31/23 omeprazole 40 mg capsule,delayed 40 mg PO DAILY 03/31/23 03/31/23 release repaglinide 0.5 mg tablet 0.5 mg PO TID 03/31/23 03/31/23 sennosides 8.6 mg tablet (senna) 17.2 mg PO DAILY 03/31/23 03/31/23 sitagliptin phosphate 50 mg tablet 50 mg PO DAILY 03/31/23 03/31/23 (Januvia) tacrolimus 0.5 mg capsule, 0.5 mg PO BEDTIME 03/31/23 03/31/23 immediate-release tacrolimus 1 mg capsule, 1 mg PO DAILY 03/31/23 03/31/23 immediate-release Allergies Allergy/AdvReac Type Severity Reaction Status Date / Time ibuprofen [IBUPROFEN] Allergy Severe SWELLING Verified 03/15/23 13:37 peanut [PEANUTS] Allergy Unknown SWELLING Verified 03/15/23 13:37 perflutren AdvReac Back Pain Verified 03/15/23 13:37 Review of Systems Review of Systems: Yes Unobtainable due to mental status (patient was able to answer some questions and the confirmed his answer) Constitutional: Constitutional: Reports no additional constitutional complaints, Denies chills, Denies fever(s) and Denies night sweats Eyes: Eyes: Reports no additional eye complaints, Denies blurry vision, Denies change in vision, Denies diplopia, Denies eye discharge, Denies loss of vision and Denies eye pain ENT: Denies dizziness Cardiovascular: Cardiovascular: Reports no additional cardiovascular complaints, Denies chest pain, Denies lightheadedness, Denies Loss of Consciousness and Denies dyspnea Respiratory: Respiratory: Reports no additional respiratory complaints and Denies dyspnea Gastrointestinal: Gastrointestinal: Reports no additional gastrointestinal complaints, Denies abdominal pain, Denies melena, Denies hematochezia, Denies change in bowel habits and Denies change in stool character Genitourinary: Genitourinary: Reports no additional male genitourinary complaints, Denies hematuria, Denies oliguria, Denies difficulty urinating, Denies dysuria, Denies urinary frequency, Denies urinary hesitancy, Denies urinary incontinence and Denies urinary urgency Musculoskeletal: Musculoskeletal: Reports no additional musculoskeletal complaints, Denies numbness and Denies tingling Neurologic: Reports confusion, Denies dizziness, Denies loss of vision, Denies numbness and Denies tingling Psychiatric: Psychiatric: Reports no additional psychiatric complaints and Reports confusion Endocrine: Endocrine: Reports no additional endocrine complaints Hematologic/Lymphatic: Hematologic/Lymphatic: Reports no additional hematologic/lymphatic complaints Allergic/Immunologic: Allergic/Immunologic: Reports no additional allergic/immunologic complaints PMFSH Past Medical History Attestation statement: The following information was validated with the patient. (all information was validated with the patient's ) Source: old records reviewed, obtained from family (patient's ) and nursing notes reviewed Medical History Acute diastolic (congestive) heart failure Anemia Aortic stenosis Cirrhosis CKD (chronic kidney disease) stage 3, GFR 30-59 ml/min Diabetes Duodenal ulcer Duodenitis Fatty liver GERD (gastroesophageal reflux disease) Gram-positive bacteremia Hypercholesteremia Hypertension MSSA bacteremia Non-rheumatic aortic stenosis Osteomyelitis PAF (paroxysmal atrial fibrillation) Staphylococcus aureus bacteremia Surgical History History of back surgery Hx of colonoscopy Hx of lymph node excision Liver transplant recipient Liver transplant recipient S/P TAVR (transcatheter aortic valve replacement) Family History Family History Mother Myocardial infarct Social History Social History Household Members: Spouse and Children Housing: Homeless Do you presently have visiting nurse or other home services: Yes Alcohol intake: never Patient Tobacco Use Status: Never used Tobacco Smoked in Last 30 Days: Yes Use of substances other than those prescribed or required for medical reasons: No Advance Directives: Yes Advance Directives on File: Yes Advance Directives Date on File: 05/19/22 Nutrition Risks: No Nutritional Risk service: No Current occupational status: retired Physical Exam ED Vital Signs: Vital Signs - 24 hr 03/31/23 10:26 03/31/23 11:25 03/31/23 15:14 Temperature 97.8 F 97.8 F Pulse Rate 85 75 75 Respiratory Rate 18 14 17 Blood Pressure 122/66 135/62 156/65 H Pulse Oximetry 99 100 99 Oxygen Delivery Method Room Air Room Air Room Air BMI result Body Mass Index 35.9 Const General: confusion Nutritional Appearance: well nourished Orientation/consciousness: confusion Limitations: no limitations HENMT Head: Yes normal to inspection and Yes atraumatic Ears: hearing grossly normal bilaterally and external ears normal General nose exam: Normal external nose present, no nasal discharge noted and no epistaxis Face and sinus: Yes normal facial exam, No abrasion and No laceration Mouth: Normal oral and palatal mucosa present, no drooling and no muffled voice Eyes General: appearance normal, both eyes and all related structures Periorbital: periorbital findings normal Eyelids: Yes eyelids normal Conjunctivae: conjunctivae normal Pupils: Equal, round and reactive pupils present EOM: EOMs intact bilaterally Neck Neck: Yes normal visual inspection, Yes full ROM and Yes no lymphadenopathy Chest Chest palpation & inspection: normal inspection of the chest Resp Effort & Inspection: normal respiratory effort and able to speak in complete sentences Auscultation: clear to auscultation bilaterally Cardio Rate: regular rate Rhythm: regular rhythm GI Inspection: Yes normal to inspection Palpation (GI): Soft to palpation, not firm, nontender, no guarding and not rigid Neuro General: confusion Cranial nerves: Yes Equal, round and reactive pupils present Cognition (Neuro): normal cognition Motor exam (neuro): 5/5 motor strength present throughout Sensory Exam: Normal double simultaneous stimulation for sensation Coordination: [id number] test normal Extrem General: Yes normal to inspection, Yes full ROM and Yes capillary refill normal Psych Appearance: grossly normal Mental Status: mental status grossly normal Affect: normal affect Attitude: cooperative Thought process: Normal thought process present Thought content: Normal thought content present Insight: Good insight present (Psych) Medications Administered Generic Name Dose Route Start Last Admin Trade Name Freq PRN Reason Stop Dose Admin Apixaban 5 mg 03/31/23 21:00 03/31/23 20:06 Apixaban 5 Mg Tablet PO 5 mg BID PATRICIA Administration Docusate Sodium 100 mg 03/31/23 21:00 03/31/23 20:06 Docusate Sodium 100 Mg Capsule PO 100 mg BID PATRICIA Administration Insulin Human Lispro 0 unit 03/31/23 21:00 03/31/23 20:06 Insulin Lispro 100 Unit/Ml 3 Ml Vial SUBCUT 4 unit QIDACHS PATRICIA Administration Protocol Lactulose 20 gm 03/31/23 17:00 03/31/23 20:06 Lactulose 20 Gm/30 Ml Solution PO 20 gm QID PATRICIA Administration Non-Formulary Medication 0.5 mg 03/31/23 21:00 03/31/23 20:06 Repaglinide PO 0.5 mg TID PATRICIA Administration Sodium Chloride 3 ml 04/01/23 00:00 03/31/23 20:07 0.9 % Sodium Chloride Flush 3 Ml Syringe IVFLUSH 3 ml QSHIFT PATRICIA Administration Tacrolimus 0.5 mg 03/31/23 21:00 03/31/23 20:07 Tacrolimus 0.5 Mg Capsule PO 0.5 mg BEDTIME PATRICIA Administration Discontinued Medications Generic Name Dose Route Start Last Admin Trade Name Daquanq PRN Reason Stop Dose Admin Lactulose 20 gm 03/31/23 12:07 03/31/23 12:30 Lactulose 20 Gm/30 Ml Solution PO 03/31/23 12:08 20 gm ONCE ONE Administration Rifaximin 550 mg 03/31/23 12:15 03/31/23 12:30 Rifaximin 550 Mg Tablet PO 03/31/23 12:16 550 mg ONCE ONE Administration Medical Decision Making Medical Decision Making MDM Narrative: Patient is a 72 year old assigned male at with a history of CHF, duodenitis, TAVR, paroxysmal atrial fib, and elevated ammonia presenting to the emergency department today with altered mental status and possible elevated ammonia. Patient's physical exam was as noted in the physical exam portion of this chart. Patient's blood work showed BUN was elevated at 38 and an elevated CR of 2.35 which is chronic for the patient. Patient's ammonia was elevated at 97. The rest of the patient's labs were unremarkable. Patient's urine showed no acute process. Patient's head CT showed no acute process. I consulted with GI who recommended giving the patient lactulose and rifaximin. I spoke to the hospitalist who agreed to admission. Patient's clinical presentation is not consistent with sepsis (@1400). I explained my physical exam findings as well as all test results to the patient and the patient's . I answered all questions asked by the patient and the patient's . Patient and the patient's verbalized agreement and understanding with this treatment plan and admission. Differential Diagnosis Differential Diagnoses: The differential diagnosis associated with the presentation includes Elevated ammonia AMS UTI Encephalopathy Subdural hematoma Epidural hematoma Stroke Admission/Observation Consideration of admission/observation: Escalation of care including adm ission/observation considered Patient to be admitted. Consult Healthcare Provider Management of the patient was discussed with: Metalsmith (spoke with GI as noted in the MDM portion of this chart.) Lab Data [facility] Lab Attestation statement: I reviewed the patient's lab results. I interpreted the patient's labs as noted in the MDM portion of this chart. 03/31/23 11:35 03/31/23 11:35 Labs: Lab Results 03/31/23 03/31/23 03/31/23 Range/Units 11:35 11:35 11:35 WBC 3.0 L (4.8-10.8) X10*3/uL RBC 3.07 L (4.60-5.80) X10*6/uL Hgb 10.2 L (14.0-18.0) g/dl Hct 28.8 L (42.0-52.0) % MCV 93.8 (80.0-98.0) fL MCH 33.2 H (27.0-33.0) pg MCHC 35.4 (31.0-36.0) g/dl RDW 14.6 (11.0-16.0) % Plt Count 124 L (160-400) X10*3/uL MPV 10.1 (9.4-12.4) fL Immature Gran % (Auto) 0.3 (0.0-0.4) % Neut % (Auto) 47.6 (45-73) % Lymph % (Auto) 41.3 H (20-40) % [place] % (Auto) 7.4 (2-11) % Eos % (Auto) 2.7 (0-4) % Baso % (Auto) 0.7 (0-2) % Lymph # (Auto) 1.2 (1.2-4.9) X10*3/uL [place]ball # (Auto) 0.2 (0.1-1.2) X10*3/uL Eos # (Auto) 0.1 (0.0-0.4) X10*3/uL Baso # (Auto) 0.0 (0.0-0.2) X10*3/uL Abs Immat Gran (auto) 0.01 (0.00-0.03) X10*3/uL Absolute Neuts (auto) 1.4 L (2.0-8.3) x10*3/uL Absolute Nucleated RBC 0.000 (0.0-0.012) X10*3/uL Nucleated RBC % (auto) 0.0 (0.0-0.2) /100WBC PT (10.0-13.1) SEC INR (0.9-1.1) APTT (26.0-36.4) SEC Sodium 139 (135-145) mmol/L Potassium 4.8 (3.3-5.1) mmol/L Chloride 114 H (96-108) mmol/L Carbon Dioxide 14 L (22-29) mmol/L Anion Gap 16 (12-20) BUN 38 H (9-16) mg/dL Creatinine 2.35 H (0.5-1.4) mg/dL Estim Creat Clear Calc 27.4 Estimated GFR 27 POC Glucose (60-115) mg/dL Random Glucose 206 H (60-115) mg/dL Calcium 9.8 (8.4-10.2) mg/dL Magnesium 2.0 (1.6-2.6) mg/dL Total Bilirubin 0.7 (0.0-1.0) mg/dL AST 23 (5-37) U/L ALT 12 (0-40) U/L Alkaline Phosphatase 94 (39-117) U/L Ammonia 97 H (13-55) umol/L Total Protein 7.0 (6.5-8.0) g/dL Albumin 3.7 (3.5-5.0) g/dL Urine Color Urine Appearance Urine pH (5.0-9.0) Ur Specific [place] (1.005-1.025) Urine Protein (Neg-Trace) mg/dL Urine Glucose (UA) (Negative) mg/dL Urine Ketones (Negative) mg/dL Urine Blood (Negative) Urine Nitrite (Negative) Ur Leukocyte Esterase (Negative) 03/31/23 03/31/23 03/31/23 Range/Units 11:35 11:57 12:29 WBC (4.8-10.8) X10*3/uL RBC (4.60-5.80) X10*6/uL Hgb (14.0-18.0) g/dl Hct (42.0-52.0) % MCV (80.0-98.0) fL MCH (27.0-33.0) pg MCHC (31.0-36.0) g/dl RDW (11.0-16.0) % Plt Count (160-400) X10*3/uL MPV (9.4-12.4) fL Immature Gran % (Auto) (0.0-0.4) % Neut % (Auto) (45-73) % Lymph % (Auto) (20-40) % [place] % (Auto) (2-11) % Eos % (Auto) (0-4) % Baso % (Auto) (0-2) % Lymph # (Auto) (1.2-4.9) X10*3/uL [place] # (Auto) (0.1-1.2) X10*3/uL Eos # (Auto) (0.0-0.4) X10*3/uL Baso # (Auto) (0.0-0.2) X10*3/uL Abs Immat Gran (auto) (0.00-0.03) X10*3/uL Absolute Neuts (auto) (2.0-8.3) x10*3/uL Absolute Nucleated RBC (0.0-0.012) X10*3/uL Nucleated RBC % (auto) (0.0-0.2) /100WBC PT 14.0 H (10.0-13.1) SEC INR 1.2 H (0.9-1.1) APTT 33.4 (26.0-36.4) SEC Sodium (135-145) mmol/L Potassium (3.3-5.1) mmol/L Chloride (96-108) mmol/L Carbon Dioxide (22-29) mmol/L Anion Gap (12-20) BUN (9-16) mg/dL Creatinine (0.5-1.4) mg/dL Estim Creat Clear Calc Estimated GFR POC Glucose 208 H (60-115) mg/dL Random Glucose (60-115) mg/dL Calcium (8.4-10.2) mg/dL Magnesium (1.6-2.6) mg/dL Total Bilirubin (0.0-1.0) mg/dL AST (5-37) U/L ALT (0-40) U/L Alkaline Phosphatase (39-117) U/L Ammonia (13-55) umol/L Total Protein (6.5-8.0) g/dL Albumin (3.5-5.0) g/dL Urine Color Yellow Urine Appearance Clear Urine pH 6.0 (5.0-9.0) Ur Specific [place] 1.015 (1.005-1.025) Urine Protein Negative (Neg-Trace) mg/dL Urine Glucose (UA) Negative (Negative) mg/dL Urine Ketones Negative (Negative) mg/dL Urine Blood Negative (Negative) Urine Nitrite Negative (Negative) Ur Leukocyte Esterase Negative (Negative) Independent Interpretation I performed an independent interpretation of an: CT Scan Interpretation: My interpretation is in agreement with the radiologist's impression of this imaging study. EXAMINATION: CT HEAD WITHOUT CONTRAST CLINICAL INFORMATION: Confusion. COMPARISON: Head CT from 10/18/2016. TECHNIQUE: Contiguous axial imaging was performed from the skullbase to vertex without intravenous administration of contrast. This CT examination was performed using dose optimization techniques as appropriate, variously including the following: *Automated exposure control *Adjustment of mA and/or kV according to patient size (this includes techniques or standardized protocols for targeted exams where dose is matched to indication/reason for exam; i.e. extremities or head) *Use of iterative reconstruction technique DLP: 630 mGy-cm. FINDINGS: There is no evidence of acute intracranial hemorrhage or territorial infarction. No abnormal mass effect or midline shift is seen. Cornelius to white matter differentiation is well preserved. No extra-axial fluid collections are identified. Moderate generalized parenchymal volume loss noted with ex vacuo dilatation of the ventricles. No disproportionate dilatation of the temporal horns evident. Very mild chronic white matter microangiopathic changes noted. The osseous structures and soft tissues are normal. The mastoid air cells and visualized portions of the paranasal sinuses are well aerated. CT/CT head/brain wo IV con IMPRESSION: No acute intracranial hemorrhage or territorial infarction. Generalized parenchymal volume loss. Dictated By: KANDI BONNER MD Signed By: Electronically signed by KANDI BONNER MD 03/31/23 1416 Radiology Impression Discussion of test interpretation with radiology: I have reviewed the radiologist's reading. Independent Historian Clinical information obtained from an independent historian. History obtained from or confirmed by: Spouse (patient's provided additional history and confirmed the history provided by the patient. ) and EMS (EMS provided additional history and confirmed the history provided by the patient. ) External Record Review External record reviewed: Other (reviewed patient's GI records and previous ED visits. Attempted to get records from [facility] but was unsuccessful.) Chronic Conditions Patient?s care impacted by: Diabetes Critical Care Time Critical Care Time Critical Care Time: Yes Total Critical Care Time: 30 Attestation: I spent 30 minutes of Critical Care Time with this patient. This does not include time spent on separately reported billable procedures. Discharge Plan Discharge Clinical Impression: Serum ammonia increased, Altered mental status Patient Disposition: Admitted As Inpatient Interventions: Admission Worksheet (ED) Last Done: 03/31/23 17:49 Discharge Date/Time: 03/31/23 17:49
[2023-03-31 11:25] VITALS: BP 135/62; PULSE 75; RESP 14; TEMP 36.6; O2SAT 100
--- NOTE | 2023-03-31 12:49 | PC.NURSE ---
pt talking w/o distress. has flapping tremor. vss for pt. piv placed, labs sent, poc taken per hx DM. lactulose and rifaximin given as ordered per mar. denies pain. 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 req tacro level lab- took this am, next dose per report 8pm; provider hong notified will draw tacro level at 7pm. no n/v/d.
--- NOTE | 2023-03-31 13:38 | PHA.MEDREC ---
Pharmacy Consult ? Medication Reconciliation Pharmacy has completed the medication reconciliation. Pt no longer taking clonidine per MD
[2023-03-31 15:14] VITALS: BP 156/65; PULSE 75; RESP 17; O2SAT 99
--- NOTE | 2023-03-31 16:42 | PM.IMHP ---
History of Present Illness Date of Service: 03/31/23 Attending physician on admission: Wendie Diane Chief Complaint: ams 72-year-old male with history of aortic stenosis s/p TAVR procedure anticoagulated with Eliquis, paroxysmal atrial fibrillation, history MSSA bacteremia, hypertension, hypercholesterolemia, CKD stage 3, CHF, history Adkins cirrhosis s/p hepatic transplant following with [facility], and chronic normocytic anemia presented to the ED earlier today with his for evaluation of confusion. The patient is on lactulose 20 mg t.i.d. which the reports this for constipation so has been withholding doses due to hyperglycemia. Over the last few days, has been increasingly confused and disoriented with shakes and some urinary incontinence which is different than his baseline. The patient tells me he does not recall the events of yesterday. His tells me that he has been at [facility] recently for elevated ammonia levels but was told these were not related to his liver. He does continue following with the [facility] and underwent transplant in 2017. He is compliant with tacrolimus. On arrival, VSS. He has chronic leukopenia, stable normocytic anemia. Creat 2.35, BUN 38 consistent with baseline, electrolytes except for CO2 14. Hepatic function normal, except ammonia 97. UA normal. Head CT without acute intracranial abnormality. Review of Systems Review of Systems: General: No fevers, malaise, unintentional weight loss HEENT: No blurred vision, diplopia. No sore throat, nasal congestion, rhinorrhea, sinus pain, ear pain Cardiovascular: No chest pain, palpitations, or leg edema Respiratory: No shortness of breath, wheezing, cough GI: No abdominal pain, nausea, vomiting, diarrhea, constipation, melena, hematochezia : No dysuria, hematuria, increased urinary frequency, decreased urinary output MSK: No myalgia, back pain Neuro: No headaches, weakness, paresthesias. +confusion Skin: No rashes or lesions [facility] Medical History Acute diastolic (congestive) heart failure Anemia Aortic stenosis Cirrhosis CKD (chronic kidney disease) stage 3, GFR 30-59 ml/min Diabetes Duodenal ulcer Duodenitis Fatty liver GERD (gastroesophageal reflux disease) Gram-positive bacteremia Hypercholesteremia Hypertension MSSA bacteremia Non-rheumatic aortic stenosis Osteomyelitis PAF (paroxysmal atrial fibrillation) Staphylococcus aureus bacteremia Family History Mother Myocardial infarct Surgical History History of back surgery Hx of colonoscopy Hx of lymph node excision Liver transplant recipient Liver transplant recipient S/P TAVR (transcatheter aortic valve replacement) Social History Household Members: Spouse and Children Housing: Homeless Do you presently have visiting nurse or other home services: Yes Alcohol intake: never Patient Tobacco Use Status: Never used Tobacco Smoked in Last 30 Days: Yes Use of substances other than those prescribed or required for medical reasons: No Advance Directives: Yes Advance Directives on File: Yes Advance Directives Date on File: 05/19/22 Nutrition Risks: No Nutritional Risk service: No Current occupational status: retired [employer] Allergies Allergy/AdvReac Type Severity Reaction Status Date / Time ibuprofen [IBUPROFEN] Allergy Severe SWELLING Verified 03/15/23 13:37 peanut [PEANUTS] Allergy Unknown SWELLING Verified 03/15/23 13:37 perflutren AdvReac Back Pain Verified 03/15/23 13:37 Active Medications: Current Medications Acetaminophen (Acetaminophen 325 Mg Tablet) 650 mg PO Q6H PRN PRN Reason: Pain, Mild (Pain Scale 1-3) Docusate Sodium (Docusate Sodium 100 Mg Capsule) 100 mg PO DAILY PRN PRN Reason: Constipation Ondansetron HCl (Ondansetron Hcl 4 Mg/2 Ml Vial) 4 mg IVPUSH Q8H PRN PRN Reason: Nausea and Vomiting Pharmacy Consult (Consult Rx Perform Med Rec) 1 each MISCELLANE ONCE PRN PRN Reason: Consult order Sodium Chloride (0.9 % Sodium Chloride Flush 3 Ml Syringe) 3 ml [facility] Home Medications Medication Instructions Recorded Confirmed Last Taken Type amlodipine 10 mg tablet 10 mg PO DAILY 03/31/23 03/31/23 03/31/23 History apixaban 5 mg tablet (Eliquis) 5 mg PO BID 03/31/23 03/31/23 03/31/23 History ascorbic acid (vitamin C) 500 mg 500 mg PO DAILY 03/31/23 03/31/23 03/30/23 History tablet atorvastatin 20 mg tablet 20 mg PO DAILY 03/31/23 03/31/23 03/31/23 History docusate sodium 100 mg capsule 100 mg PO BID 03/31/23 03/31/23 03/30/23 History (Colace) ferrous sulfate 325 mg (65 mg 325 mg PO DAILY 03/31/23 03/31/23 03/31/23 History iron) tablet furosemide 40 mg tablet 40 mg PO DAILY 03/31/23 03/31/23 03/30/23 History lactulose 10 gram/15 mL oral 30 ml PO TID 03/31/23 03/31/23 03/31/23 History solution lisinopril 2.5 mg tablet 2.5 mg PO DAILY 03/31/23 03/31/23 03/31/23 History omeprazole 40 mg capsule,delayed 40 mg PO DAILY 03/31/23 03/31/23 03/30/23 History release repaglinide 0.5 mg tablet 0.5 mg PO TID 03/31/23 03/31/23 03/31/23 History sennosides 8.6 mg tablet (senna) 17.2 mg PO DAILY 03/31/23 03/31/23 Unknown History sitagliptin phosphate 50 mg tablet 50 mg PO DAILY 03/31/23 03/31/23 03/31/23 History (Januvia) tacrolimus 0.5 mg capsule, 0.5 mg PO BEDTIME 03/31/23 03/31/23 Unknown History immediate-release tacrolimus 1 mg capsule, 1 mg PO DAILY 03/31/23 03/31/23 03/31/23 History immediate-release Physical Exam Vital Signs and Narrative: Vital Signs: Last Vital Signs Temp 97.8 F 03/31/23 11:25 Pulse 75 03/31/23 15:14 Resp 17 03/31/23 15:14 BP 156/65 H 03/31/23 15:14 Pulse Ox 99 03/31/23 15:14 O2 Del Method Room Air 03/31/23 15:14 BMI result Body Mass Index 35.9 Constitutional - Awake and Alert, No apparent distress Eyes - PERRLA, EOMI Cardiovascular - S1S2, RRR, No edema Respiratory - Normal lung expansion, Normal respiratory effort, No respiratory distress, CTA bilaterally Gastrointestinal - NT / ND; +BS; No rebound or guarding. + asterixis Extremities - no calf tenderness bilaterally, no swelling Skin - Warm/Dry Neurological - Alert & oriented x2, disoriented to time initially, CN II-XII in tact Psychological - Appropriate affect Results Labs 03/31/23 11:35 03/31/23 11:35 Labs: Laboratory Results - last 24 hr 03/31/23 03/31/23 03/31/23 11:35 11:35 11:35 MCV 93.8 MCH 33.2 H MCHC 35.4 RDW 14.6 Plt Count 124 L MPV 10.1 Immature Gran % (Auto) 0.3 Neut % (Auto) 47.6 Lymph % (Auto) 41.3 H Crisp % (Auto) 7.4 Eos % (Auto) 2.7 Baso % (Auto) 0.7 Lymph # (Auto) 1.2 Crisp # (Auto) 0.2 Eos # (Auto) 0.1 Baso # (Auto) 0.0 Abs Immat Gran (auto) 0.01 Absolute Neuts (auto) 1.4 L Absolute Nucleated RBC 0.000 Nucleated RBC % (auto) 0.0 PT INR APTT Anion Gap 16 Estim Creat Clear Calc 27.4 Estimated GFR 27 POC Glucose Random Glucose 206 H Calcium 9.8 Magnesium 2.0 Total Bilirubin 0.7 AST 23 ALT 12 Alkaline Phosphatase 94 Ammonia 97 H Total Protein 7.0 Albumin 3.7 Urine Color Urine Appearance Urine pH Ur Specific [place] Urine Protein Urine Glucose (UA) Urine Ketones Urine Blood Urine Nitrite Ur Leukocyte Esterase 03/31/23 03/31/23 03/31/23 11:35 11:57 12:29 MCV MCH MCHC RDW Plt Count MPV Immature Gran % (Auto) Neut % (Auto) Lymph % (Auto) Crisp % (Auto) Eos % (Auto) Baso % (Auto) Lymph # (Auto) Crisp # (Auto) Eos # (Auto) Baso # (Auto) Abs Immat Gran (auto) Absolute Neuts (auto) Absolute Nucleated RBC Nucleated RBC % (auto) PT 14.0 H INR 1.2 H APTT 33.4 Anion Gap Estim Creat Clear Calc Estimated GFR POC Glucose 208 H Random Glucose Calcium Magnesium Total Bilirubin AST ALT Alkaline Phosphatase Ammonia Total Protein Albumin Urine Color Yellow Urine Appearance Clear Urine pH 6.0 Ur Specific [place] 1.015 Urine Protein Negative Urine Glucose (UA) Negative Urine Ketones Negative Urine Blood Negative Urine Nitrite Negative Ur Leukocyte Esterase Negative Imaging Radiologist's Impressions: Impressions Head CT 03/31/23 12:28 IMPRESSION: No acute intracranial hemorrhage or territorial infarction. Generalized parenchymal volume loss. Assessment and Plan (1) Hepatic encephalopathy: Status: Acute Plan 72-year-old male with history of aortic stenosis s/p TAVR procedure anticoagulated with Eliquis, paroxysmal atrial fibrillation, history MSSA bacteremia, hypertension, hypercholesterolemia, CKD stage 3, CHF, history Adkins cirrhosis s/p hepatic transplant following with [facility], and chronic normocytic anemia to be observed for hepatic encephalopathy. #Acute hepatic encephalopathy- with asterixis -r/t to lactulose noncompliance, in patient s/p hepatic transplant without recurrent cirrhosis. Following with [facility] -Lactulose 20g QID, titrate to maintain 3-4 loose stools per day -abdominal ultrasound results pending to evaluate for ascites or portal vein thrombosis -hepatic function normal -Head CT without acute abnormality -GI consult -Mycoplasma hominis/urea culture pending #Acute respiratory alkalosis -VBG with ph 7.53, CO2 18, [place] 15 -No respiratory distress -will continue monitoring -repeat labs am #Paroxysmal atrial fibrillation- diagnosed on echo 05/22 last admission. 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 Quality Stroke Does the patient have a stroke diagnosis?: No VTE Prior VTE?: No VTE Risk Level:: Medical - moderate - high VTE Device Contraindication: Treatment Not Indicated VTE Drug Contraindication: N/A - Med Ordered
--- NOTE | 2023-03-31 16:45 | PM.EVENT ---
Event Note Date of Service: 03/31/23 Event Note: addendum to H+P by hospitalist LIBBY Sanchez 72yo M s/p liver transplant for ADKINS cirrhosis in 2016 at [facility] on tacrolimus, AoS s/p TAVR, pAF on apixaban, HTN, CKD3 presenting with confusion/disorientation. similar episode in January prompting admission to [facility] for hepatic encephalopathy found to have marked asterixis, NH3 97 plan admit to M/S/, start lactulose + rifaximin, consult GI, abd US with dopplers, contact transplant team Time Spent With Patient Time: Total time managing care of this patient today ____ minutes.
--- NOTE | 2023-03-31 17:30 | PC.NURSE ---
given report to damian for pt admission to floor. pt stable.
[2023-03-31 17:48] VITALS: BP 146/75; PULSE 76; RESP 18; TEMP 36.3; O2SAT 100
[2023-03-31 19:32] VITALS: BP 152/69; PULSE 77; RESP 16; TEMP 36.4; O2SAT 97
[2023-04-01 04:00] VITALS: BP 124/58; PULSE 60; RESP 16; TEMP 36; O2SAT 99
[2023-04-01 05:39] LABS: MANUAL DIFF FLAG NO
[2023-04-01 05:42] LABS: Basophils Percent Auto 0.6 % (0-2); Eosinophils Absolute Auto 0.1 X10*3/uL (0.0-0.4); Eosinophils Percent Auto 3.6 % (0-4); Hematocrit 27.7 % (42.0-52.0); Hemoglobin 9.7 g/dl (14.0-18.0); Lymphocytes Absolute Auto 1.5 X10*3/uL (1.2-4.9); Lymphocytes Percent Auto 47.7 % (20-40); Mean Corpuscular Hemoglobin 32.4 pg (27.0-33.0); Mean Corpuscular Volume 92.6 fL (80.0-98.0); Mean Platelet Volume 9.8 fL (9.4-12.4); Monocytes Absolute Auto 0.3 X10*3/uL (0.1-1.2); Monocytes Percent Auto 9.4 % (2-11); Neutrophils Absolute Auto 1.2 x10*3/uL (2.0-8.3); Neutrophils Percent Auto 38.7 % (45-73); Platelet Count 121 X10*3/uL (160-400); Red Blood Count 2.99 X10*6/uL (4.60-5.80); Red Cell Distribution Width 14.6 % (11.0-16.0); White Blood Count 3.1 X10*3/uL (4.8-10.8)
[2023-04-01 05:43] LABS: Venous Blood Gas Refer to POC result
[2023-04-01 05:50] LABS: Ammonia 84 umol/L (13-55)
[2023-04-01 06:04] LABS: Alanine Aminotransferase 16 U/L (0-40); Albumin Level 3.4 g/dL (3.5-5.0); Alkaline Phosphatase 86 U/L (39-117); Anion Gap 13 (12-20); Aspartate Amino Transferase 20 U/L (5-37); Bilirubin Direct 0.2 mg/dL (0.0-0.5); Bilirubin Total 0.6 mg/dL (0.0-1.0); Blood Urea Nitrogen 38 mg/dL (9-16); Calcium 9.5 mg/dL (8.4-10.2); Carbon Dioxide 17 mmol/L (22-29); Chloride 115 mmol/L (96-108); Creatinine Clr Calc Pharmacy 26.9; Estimated Glomerular Filt Rate 27; Glucose Random 148 mg/dL (60-115); Potassium 4.9 mmol/L (3.3-5.1); Sodium 140 mmol/L (135-145); Total Protein 6.6 g/dL (6.5-8.0)
[2023-04-01 07:16] VITALS: BP 145/81; PULSE 65; RESP 16; TEMP 36.6; O2SAT 100
--- NOTE | 2023-04-01 08:42 | PM.GICN ---
History of Present Illness Data of Consult Service Date: 04/01/23 Requesting physician: Wendie Diane Primary Care Provider: Unknown Physician HPI Reason for consult: Encephalopathy This is a 72-year-old gentleman with past medical history of decompensated cirrhosis status post liver transplantation 2016 on tacrolimus, type 2 diabetes, chronic heart failure, osteomyelitis of the spine, atrial fibrillation on Eliquis, large duodenal ulcer 2021, s/p TAVR 01/2023who is currently admitted to the hospital for encephalopathy. Patient was evaluated at bedside, in the presence of his daughter, who states that this is his 2nd admission for confusion and altered mental status. He was admitted to [facility] earlier this year as well for similar symptoms. After that hospitalization, he was discharged on p.o. lactulose, however patient was not aware that he was to take it daily, and was using a p.r.n. for constipation. Yesterday morning, his found him very confused and drowsy. Patient was not able to recognize her. also noticed a very prominent flapping tremor. She then called EMS for him who brought him to [facility]. On arrival he was noted to have stable vital signs. Labs were significant for mild alkalosis and significant hyperglycemia. Ultrasound abdomen did not show any new ascites or portal venous thrombosis. Head CT without contrast was normal. Currently at the time of evaluation, patient is alert and oriented. Close to his baseline according to his daughter at bedside. Has had 4 BMs since last night. He does not report any background of recent illness, change in stool habits, abdominal pain, blood in stool. Review of Systems Review of Systems: Yes all other systems are reviewed and are negative [facility] Past Medical History Medical History (Updated 04/01/23 @ 11:55 by Shari Chapin MD) Acute diastolic (congestive) heart failure Anemia Aortic stenosis Cirrhosis CKD (chronic kidney disease) stage 3, GFR 30-59 ml/min Diabetes Duodenal ulcer Duodenitis Fatty liver GERD (gastroesophageal reflux disease) Gram-positive bacteremia Hypercholesteremia Hypertension MSSA bacteremia Non-rheumatic aortic stenosis Osteomyelitis PAF (paroxysmal atrial fibrillation) Staphylococcus aureus bacteremia Family History Family History Mother Myocardial infarct Surgical History Surgical History (Updated 04/01/23 @ 14:20 by Shari Chapin MD) History of back surgery Hx of colonoscopy Hx of lymph node excision Liver transplant recipient Liver transplant recipient S/P TAVR (transcatheter aortic valve replacement) Social History Social History Household Members: Family Housing: House Do you presently have visiting nurse or other home services: No Alcohol intake: never Patient Tobacco Use Status: Never used Tobacco Smoked in Last 30 Days: Yes Use of substances other than those prescribed or required for medical reasons: No Currently Displaying Signs/Symptoms of Drug Intoxication Withdrawal: No Have you been hit, kicked, punched, or otherwise hurt by someone within the past year? If so, by whom?: No Do you feel safe in your current relationship?: Yes Is there a partner from a previous relationship who is making you feel unsafe now?: No Are you made to feel afraid or neglected: No Advance Directives: Yes Advance Directives on File: Yes Advance Directives Date on File: 05/19/22 Do you have thoughts of harming others: None Do you have a plan to hurt others: No Plan Recently lost weight without trying: No Nutrition Risks: No Nutritional Risk Poor oral hygiene: No service: No Current occupational status: retired [employer] Allergies Allergy/AdvReac Type Severity Reaction Status Date / Time ibuprofen [IBUPROFEN] Allergy Severe SWELLING Verified 03/15/23 13:37 peanut [PEANUTS] Allergy Unknown SWELLING Verified 03/15/23 13:37 perflutren AdvReac Back Pain Verified 03/15/23 13:37 Active Medications: Current Medications Acetaminophen (Acetaminophen 325 Mg Tablet) 650 mg PO Q6H PRN PRN Reason: Pain, Mild (Pain Scale 1-3) Amlodipine Besylate (Amlodipine Besylate 10 Mg Tablet) 10 mg PO DAILY [facility]; Protocol Last Admin: 04/01/23 07:53 Dose: 10 mg Apixaban (Apixaban 5 Mg Tablet) 5 mg PO BID PATRICIA Last Admin: 04/01/23 07:54 Dose: 5 mg Ascorbic Acid (Ascorbic Acid 500 Mg Tablet) 500 mg PO DAILY PATRICIA Last Admin: 04/01/23 07:53 Dose: 500 mg Atorvastatin Calcium (Atorvastatin Calcium 20 Mg Tablet) 20 mg PO DAILY [facility] Last Admin: 04/01/23 07:53 Dose: 20 mg Dextrose (Dextrose 50 % 25 Gm/50 Ml Syringe) 25 gm IVPUSH Q15M PRN; Protocol PRN Reason: per Hypoglycemia Standing Ord. Docusate Sodium (Docusate Sodium 100 Mg Capsule) 100 mg PO DAILY PRN PRN Reason: Constipation Docusate Sodium (Docusate Sodium 100 Mg Capsule) 100 mg PO BID [facility] Last Admin: 04/01/23 07:47 Dose: Not Given Ferrous Sulfate (Ferrous Sulfate 324 Mg Tablet.) 324 mg PO DAILY [facility] Last Admin: 04/01/23 07:54 Dose: 324 mg Furosemide (Furosemide 40 Mg Tablet) 40 mg PO DAILY [facility]; Protocol Last Admin: 04/01/23 07:54 Dose: 40 mg Glucose (Glucose Gel 15 Gm Gel..Gram.) 15 gm PO Q15M PRN; Protocol PRN Reason: per Hypoglycemia Standing Ord. Insulin Human Lispro (Insulin Lispro 100 Unit/Ml 3 Ml Vial) 0 unit SUBCUT QIDACHS [facility]; Protocol Last Admin: 04/01/23 07:57 Dose: 2 unit Lactulose (Lactulose 20 Gm/30 Ml Solution) 20 gm PO QID [facility] Last Admin: 04/01/23 07:53 Dose: 20 gm Lisinopril (Lisinopril 2.5 Mg Tablet) 2.5 mg PO DAILY [facility]; Protocol Last Admin: 04/01/23 07:54 Dose: 2.5 mg Non-Formulary Medication (Repaglinide) 0.5 mg PO TID [facility] Last Admin: 04/01/23 07:54 Dose: 0.5 mg Omeprazole (Omeprazole 40 Mg Capsule.) 40 mg PO DAILY@0630 [facility] Last Admin: 04/01/23 05:40 Dose: 40 mg Ondansetron HCl (Ondansetron Hcl 4 Mg/2 Ml Vial) 4 mg IVPUSH Q8H PRN PRN Reason: Nausea and Vomiting Pharmacy Consult (Consult Rx Perform Med Rec) 1 each MISCELLANE ONCE PRN PRN Reason: Consult order Senna (Sennosides 8.6 Mg Tablet) 17.2 mg PO DAILY [facility] Last Admin: 04/01/23 07:47 Dose: Not Given Sitagliptin Phosphate (Sitagliptin Phosphate 50 Mg Tablet) 50 mg PO DAILY [facility] Last Admin: 04/01/23 07:53 Dose: 50 mg Sodium Chloride (0.9 % Sodium Chloride Flush 3 Ml Syringe) [facility] Last Admin: 04/01/23 07:57 Dose: 3 ml Tacrolimus (Tacrolimus 0.5 Mg Capsule) 0.5 mg PO BEDTIME [facility] Last Admin: 03/31/23 20:07 Dose: 0.5 mg Tacrolimus (Tacrolimus 1 Mg Capsule) 1 mg PO DAILY [facility] Last Admin: 04/01/23 07:54 Dose: 1 mg Home Medications Medication Instructions Recorded Confirmed Last Taken Type amlodipine 10 mg tablet 10 mg PO DAILY 03/31/23 03/31/23 03/31/23 History apixaban 5 mg tablet (Eliquis) 5 mg PO BID 03/31/23 03/31/23 03/31/23 History ascorbic acid (vitamin C) 500 mg 500 mg PO DAILY 03/31/23 03/31/23 03/30/23 History tablet atorvastatin 20 mg tablet 20 mg PO DAILY 03/31/23 03/31/23 03/31/23 History docusate sodium 100 mg capsule 100 mg PO BID 03/31/23 03/31/23 03/30/23 History (Colace) ferrous sulfate 325 mg (65 mg 325 mg PO DAILY 03/31/23 03/31/23 03/31/23 History iron) tablet furosemide 40 mg tablet 40 mg PO DAILY 03/31/23 03/31/23 03/30/23 History lactulose 10 gram/15 mL oral 30 ml PO TID 03/31/23 03/31/23 03/31/23 History solution lisinopril 2.5 mg tablet 2.5 mg PO DAILY 03/31/23 03/31/23 03/31/23 History omeprazole 40 mg capsule,delayed 40 mg PO DAILY 03/31/23 03/31/23 03/30/23 History release repaglinide 0.5 mg tablet 0.5 mg PO TID 03/31/23 03/31/23 03/31/23 History sennosides 8.6 mg tablet (senna) 17.2 mg PO DAILY 03/31/23 03/31/23 Unknown History sitagliptin phosphate 50 mg tablet 50 mg PO DAILY 03/31/23 03/31/23 03/31/23 History (Januvia) tacrolimus 0.5 mg capsule, 0.5 mg PO BEDTIME 03/31/23 03/31/23 Unknown History immediate-release tacrolimus 1 mg capsule, 1 mg PO DAILY 0703/31/23 03/31/23 History immediate-release Physical Exam Vital Signs: Vital Signs: Last Vital Signs Temp 97.8 F 04/01/23 07:16 Pulse 65 04/01/23 07:16 Resp 16 04/01/23 07:16 BP 145/81 H 04/01/23 07:16 Pulse Ox 100 04/01/23 07:16 O2 Del Method Room Air 04/01/23 07:16 BMI result Body Mass Index 35.9 Gen Appear: NAD, well nourished HEENT: No scleral icterus Chest: CTA CVS: Regular S1/S2 no murmurs Abd: soft, nontender, mildly distended, no shifting dullness to percussion, bowel sounds active Ext: No peripheral edema bilaterally Neuro: A/Ox3, no asterixis Results Labs 04/01/23 05:33 04/01/23 05:33 Labs: Short CBC 03/31/23 04/01/23 Range/Units 11:35 05:33 WBC 3.0 L 3.1 L (4.8-10.8) X10*3/uL Hgb 10.2 L 9.7 L (14.0-18.0) g/dl Hct 28.8 L 27.7 L (42.0-52.0) % Plt Count 124 L 121 L (160-400) X10*3/uL BMP 03/31/23 03/31/23 04/01/23 11:35 19:10 05:33 Sodium 139 141 140 Potassium 4.8 4.5 4.9 Chloride 114 H 115 H 115 H Carbon Dioxide 14 L 14 L 17 L BUN 38 H 38 H 38 H Creatinine 2.35 H 2.40 H 2.40 H Calcium 9.8 10.0 9.5 Liver Function 03/31/23 04/01/23 Range/Units 11:35 05:33 Total Bilirubin 0.7 0.6 (0.0-1.0) mg/dL Direct Bilirubin 0.2 (0.0-0.5) mg/dL AST 23 20 (5-37) U/L ALT 12 16 (0-40) U/L Alkaline Phosphatase 94 86 (39-117) U/L Albumin 3.7 3.4 L (3.5-5.0) g/dL Urine 03/31/23 Range/Units 11:57 Urine Color Yellow Urine Appearance Clear Urine pH 6.0 (5.0-9.0) Ur Specific [place] 1.015 (1.005-1.025) Urine Protein Negative (Neg-Trace) mg/dL Urine Glucose (UA) Negative (Negative) mg/dL Assessment and Plan (1) Hepatic encephalopathy: Status: Acute (2) Altered mental status: Status: Acute (3) Cirrhosis: Status: Acute (4) Status post liver transplant: Status: Acute Plan Etiology of encephalopathy appears to be hepatic. LFTs are normal so chronic rejection does not appear to be likely. Given his post-transplantation status, PV thrombosis/stenosis has already been ruled out. Flow was noted ot be appropriately hepatopetal which also argues against new R sided heart failure leading to reversal of venous flow and encephalopathy. Reviewed with the pt that will likely need assessment of his transplanted liver as ideally should not be experiencing any hepatic encephalopathy and may require a biopsy and dedicated imaging. He is aware to contact [facility] to set up an appt. Otherwise, he is back to baseline and doing well now and can be discharged once other work up (as below) has been sent. Plan: - Check for hepatitis serology as we are not aware of hepatitis status of transplanted liver. - Complete infection work up with blood culture, CXR, urinalysis for metabolic encephalopathy. - He should cont lactulose on a daily basis - He is aware to call [facility] at earliest opportunity and make an appt (current appt in May). Thank you for the consultation. Please do not hesitate to contact for any updates or concerns. Time Spent With Patient Time: Total time managing care of this patient today ____ minutes. Procedures Date of Service Date of Service: 04/01/23
--- NOTE | 2023-04-01 09:24 | HO.PM.IMPN ---
Subjective Subjective Date of Service: 04/01/23 Interval History: Still somewhat confused, has asterixis No guillaume GI bleeding or melena No fever Review of Systems Review of Systems: Yes all other systems are reviewed and are negative Physical Exam Vital Signs: Vital Signs: Last Vital Signs Temp 97.8 F 04/01/23 07:16 Pulse 65 04/01/23 07:16 Resp 16 04/01/23 07:16 BP 145/81 H 04/01/23 07:16 Pulse Ox 100 04/01/23 07:16 O2 Del Method Room Air 04/01/23 07:16 BMI result Body Mass Index 35.9 Gen: in no acute distress HEENT: sclera anicteric, moist mucus membranes Neck: supple Lungs: clear to auscultation bilaterally Heart: regular rate and rhythm, no murmurs Abd: soft, non-tender, non-distended, no fluid wave Ext: no edema Skin: warm/well-perfused Neuro: alert and oriented to self + place not date, asterixis elicited Psych: appropriate affect Objective Data Active Medications Acetaminophen (Acetaminophen 325 Mg Tablet) 650 mg PO Q6H PRN PRN Reason: Pain, Mild (Pain Scale 1-3) Amlodipine Besylate (Amlodipine Besylate 10 Mg Tablet) 10 mg PO DAILY [facility]; Protocol Last Admin: 04/01/23 07:53 Dose: 10 mg Documented By: JOSUE Apixaban (Apixaban 5 Mg Tablet) 5 mg PO BID [facility] Last Admin: 04/01/23 07:54 Dose: 5 mg Documented By: JOSUE Ascorbic Acid (Ascorbic Acid 500 Mg Tablet) 500 mg PO DAILY [facility] Last Admin: 04/01/23 07:53 Dose: 500 mg Documented By: JOSUE Atorvastatin Calcium (Atorvastatin Calcium 20 Mg Tablet) 20 mg PO DAILY [facility] Last Admin: 04/01/23 07:53 Dose: 20 mg Documented By: JOSUE Dextrose (Dextrose 50 % 25 Gm/50 Ml Syringe) 25 gm IVPUSH Q15M PRN; Protocol PRN Reason: per Hypoglycemia Standing Ord. Docusate Sodium (Docusate Sodium 100 Mg Capsule) 100 mg PO DAILY PRN PRN Reason: Constipation Docusate Sodium (Docusate Sodium 100 Mg Capsule) 100 mg PO BID [facility] Last Admin: 04/01/23 07:47 Dose: Not Given Documented By: JOSUE Non-Admin Reason: loose stools Ferrous Sulfate (Ferrous Sulfate 324 Mg Tablet.) 324 mg PO DAILY [facility] Last Admin: 04/01/23 07:54 Dose: 324 mg Documented By: JOSUE Furosemide (Furosemide 40 Mg Tablet) 40 mg PO DAILY [facility]; Protocol Last Admin: 04/01/23 07:54 Dose: 40 mg Documented By: JOSUE Glucose (Glucose Gel 15 Gm Gel..Gram.) 15 gm PO Q15M PRN; Protocol PRN Reason: per Hypoglycemia Standing Ord. Insulin Human Lispro (Insulin Lispro 100 Unit/Ml 3 Ml Vial) 0 unit SUBCUT QIDACHS [facility]; Protocol Last Admin: 04/01/23 07:57 Dose: 2 unit Documented By: JOSUE Lactulose (Lactulose 20 Gm/30 Ml Solution) 20 gm PO QID [facility] Last Admin: 04/01/23 07:53 Dose: 20 gm Documented By: JOSUE Lisinopril (Lisinopril 2.5 Mg Tablet) 2.5 mg PO DAILY [facility]; Protocol Last Admin: 04/01/23 07:54 Dose: 2.5 mg Documented By: JOSUE Non-Formulary Medication (Repaglinide) 0.5 mg PO TID [facility] Last Admin: 04/01/23 07:54 Dose: 0.5 mg Documented By: JOSUE Omeprazole (Omeprazole 40 Mg Capsule.) 40 mg PO DAILY@0630 [facility] Last Admin: 04/01/23 05:40 Dose: 40 mg Documented By: DERIKQC Ondansetron HCl (Ondansetron Hcl 4 Mg/2 Ml Vial) 4 mg IVPUSH Q8H PRN PRN Reason: Nausea and Vomiting Pharmacy Consult (Consult Rx Perform Med Rec) 1 each MISCELLANE ONCE PRN PRN Reason: Consult order Senna (Sennosides 8.6 Mg Tablet) 17.2 mg PO DAILY [facility] Last Admin: 04/01/23 07:47 Dose: Not Given Documented By: JOSUE Non-Admin Reason: loose stools Sitagliptin Phosphate (Sitagliptin Phosphate 50 Mg Tablet) 50 mg PO DAILY [facility] Last Admin: 04/01/23 07:53 Dose: 50 mg Documented By: JOSUE Sodium Chloride (0.9 % Sodium Chloride Flush 3 Ml Syringe) 3 ml IVFLUSH QSHIFT [facility] Last Admin: 04/01/23 07:57 Dose: 3 ml Documented By: JOSUE Tacrolimus (Tacrolimus 0.5 Mg Capsule) 0.5 mg PO BEDTIME [facility] Last Admin: 03/31/23 20:07 Dose: 0.5 mg Documented By: SUSANNA Tacrolimus (Tacrolimus 1 Mg Capsule) 1 mg PO DAILY [facility] Last Admin: 04/01/23 07:54 Dose: 1 mg Documented By: JOSUE Labs 04/01/23 05:33 04/01/23 05:33 Labs: Laboratory Results - last 24 hr 03/31/23 03/31/23 03/31/23 11:35 11:35 11:35 MCV 93.8 MCH 33.2 H MCHC 35.4 RDW 14.6 Plt Count 124 L MPV 10.1 Immature Gran % (Auto) 0.3 Neut % (Auto) 47.6 Lymph % (Auto) 41.3 H [place] % (Auto) 7.4 Eos % (Auto) 2.7 Baso % (Auto) 0.7 Lymph # (Auto) 1.2 [place] # (Auto) 0.2 Eos # (Auto) 0.1 Baso # (Auto) 0.0 Abs Immat Gran (auto) 0.01 Absolute Neuts (auto) 1.4 L Absolute Nucleated RBC 0.000 Nucleated RBC % (auto) 0.0 PT INR APTT VBG pH VBG pCO2 VBG pO2 VBG HCO3 VBG O2 Saturation VBG Base Excess Anion Gap 16 Estim Creat Clear Calc 27.4 Estimated GFR 27 POC Glucose Random Glucose 206 H Calcium 9.8 Magnesium 2.0 Total Bilirubin 0.7 Direct Bilirubin AST 23 ALT 12 Alkaline Phosphatase 94 Ammonia 97 H Total Protein 7.0 Albumin 3.7 Urine Color Urine Appearance Urine pH Ur Specific [place] Urine Protein Urine Glucose (UA) Urine Ketones Urine Blood Urine Nitrite Ur Leukocyte Esterase 03/31/23 03/31/23 03/31/23 11:35 11:57 12:29 MCV MCH MCHC RDW Plt Count MPV Immature Gran % (Auto) Neut % (Auto) Lymph % (Auto) [place] % (Auto) Eos % (Auto) Baso % (Auto) Lymph # (Auto) [place] # (Auto) Eos # (Auto) Baso # (Auto) Abs Immat Gran (auto) Absolute Neuts (auto) Absolute Nucleated RBC Nucleated RBC % (auto) PT 14.0 H INR 1.2 H APTT 33.4 VBG pH VBG pCO2 VBG pO2 VBG HCO3 VBG O2 Saturation VBG Base Excess Anion Gap Estim Creat Clear Calc Estimated GFR POC Glucose 208 H Random Glucose Calcium Magnesium Total Bilirubin Direct Bilirubin AST ALT Alkaline Phosphatase Ammonia Total Protein Albumin Urine Color Yellow Urine Appearance Clear Urine pH 6.0 Ur Specific [place] 1.015 Urine Protein Negative Urine Glucose (UA) Negative Urine Ketones Negative Urine Blood Negative Urine Nitrite Negative Ur Leukocyte Esterase Negative 03/31/23 03/31/23 03/31/23 17:46 19:10 19:21 MCV MCH MCHC RDW Plt Count MPV Immature Gran % (Auto) Neut % (Auto) Lymph % (Auto) [place] % (Auto) Eos % (Auto) Baso % (Auto) Lymph # (Auto) [place] # (Auto) Eos # (Auto) Baso # (Auto) Abs Immat Gran (auto) Absolute Neuts (auto) Absolute Nucleated RBC Nucleated RBC % (auto) PT INR APTT VBG pH 7.53 H VBG pCO2 18 VBG pO2 184 VBG HCO3 15 L VBG O2 Saturation 99.0 VBG Base Excess -4.9 Anion Gap 17 Estim Creat Clear Calc 26.9 Estimated GFR 27 POC Glucose 174 H Random Glucose 216 H Calcium 10.0 Magnesium Total Bilirubin Direct Bilirubin AST ALT Alkaline Phosphatase Ammonia Total Protein Albumin Urine Color Urine Appearance Urine pH Ur Specific [place] Urine Protein Urine Glucose (UA) Urine Ketones Urine Blood Urine Nitrite Ur Leukocyte Esterase 03/31/23 03/31/23 04/01/23 19:21 19:30 05:33 MCV 92.6 MCH 32.4 MCHC 35.0 RDW 14.6 Plt Count 121 L MPV 9.8 Immature Gran % (Auto) 0.0 Neut % (Auto) 38.7 L Lymph % (Auto) 47.7 H [place] % (Auto) 9.4 Eos % (Auto) 3.6 Baso % (Auto) 0.6 Lymph # (Auto) 1.5 [place] # (Auto) 0.3 Eos # (Auto) 0.1 Baso # (Auto) 0.0 Abs Immat Gran (auto) 0.00 Absolute Neuts (auto) 1.2 L Absolute Nucleated RBC 0.000 Nucleated RBC % (auto) 0.0 PT INR APTT VBG pH VBG pCO2 VBG pO2 VBG HCO3 VBG O2 Saturation VBG Base Excess Anion Gap Estim Creat Clear Calc Estimated GFR POC Glucose 206 H Random Glucose Calcium Magnesium Total Bilirubin Direct Bilirubin AST ALT Alkaline Phosphatase Ammonia Cancelled Total Protein Albumin Urine Color Urine Appearance Urine pH Ur Specific [place] Urine Protein Urine Glucose (UA) Urine Ketones Urine Blood Urine Nitrite Ur Leukocyte Esterase 04/01/23 04/01/23 04/01/23 05:33 05:33 05:36 MCV MCH MCHC RDW Plt Count MPV Immature Gran % (Auto) Neut % (Auto) Lymph % (Auto) [place] % (Auto) Eos % (Auto) Baso % (Auto) Lymph # (Auto) [place] # (Auto) Eos # (Auto) Baso # (Auto) Abs Immat Gran (auto) Absolute Neuts (auto) Absolute Nucleated RBC Nucleated RBC % (auto) PT INR APTT VBG pH 7.46 H VBG pCO2 24 VBG pO2 174 VBG HCO3 17 L VBG O2 Saturation 100.0 VBG Base Excess -4.4 Anion Gap 13 Estim Creat Clear Calc 26.9 Estimated GFR 27 POC Glucose Random Glucose 148 H Calcium 9.5 Magnesium Total Bilirubin 0.6 Direct Bilirubin 0.2 AST 20 ALT 16 Alkaline Phosphatase 86 Ammonia 84 H Total Protein 6.6 Albumin 3.4 L Urine Color Urine Appearance Urine pH Ur Specific [place] Urine Protein Urine Glucose (UA) Urine Ketones Urine Blood Urine Nitrite Ur Leukocyte Esterase 04/01/23 07:19 MCV MCH MCHC RDW Plt Count MPV Immature Gran % (Auto) Neut % (Auto) Lymph % (Auto) [place] % (Auto) Eos % (Auto) Baso % (Auto) Lymph # (Auto) [place] # (Auto) Eos # (Auto) Baso # (Auto) Abs Immat Gran (auto) Absolute Neuts (auto) Absolute Nucleated RBC Nucleated RBC % (auto) PT INR APTT VBG pH VBG pCO2 VBG pO2 VBG HCO3 VBG O2 Saturation VBG Base Excess Anion Gap Estim Creat Clear Calc Estimated GFR POC Glucose 153 H Random Glucose Calcium Magnesium Total Bilirubin Direct Bilirubin AST ALT Alkaline Phosphatase Ammonia Total Protein Albumin Urine Color Urine Appearance Urine pH Ur Specific [place] Urine Protein Urine Glucose (UA) Urine Ketones Urine Blood Urine Nitrite Ur Leukocyte Esterase Assessment and Plan (1) Hepatic encephalopathy: Status: Acute Plan 72yo M s/p liver transplant for ADKINS cirrhosis in 2017 at [facility] on tacrolimus, AoS s/p TAVR, pAF on apixaban, HTN, CKD3, recent admission in [place] [facility] [place] presenting with confusion/disorientation/asterixis, admitted for hepatic encephalopathy # hepatic encephalopathy - unclear why this transplant pt has encephalopathy 6 years s/p transplant. I have called [facility] and am awaiting call-back. GI consulted. Ureaplasma/mycoplasma culture from urine ordered. ?portosystemic shunts that didn't close?- can't do CTA due to renal insufficiency. Meanwhile, continue rifaximin + titrate lactulose to 3-4 BM/d # respiratory alkalosis with metabolic compensation - due to hepatic encephalopathy # liver transplant - tacrolimus # CKD3 - SCr at baseline # pAF - rate-controlled without meds; continue apiaxaban # HTN - continue furosemide, amlodipine, lisinopril # DM2 - correction-dose lispro, DM diet # VTE ppx: apixaban # dispo: likely home eventually In my clinical judgment, the patient requires continued inpatient hospitalization for the following reasons: encephalopathy Time Spent With Patient Time: Total time managing care of this patient today ___45_ minutes. Quality Stroke Does the patient have a stroke diagnosis?: No VTE Prior VTE?: No VTE Risk Level:: Medical - moderate - high VTE Device Contraindication: Treatment Not Indicated VTE Drug Contraindication: N/A - Med Ordered
[2023-04-01 12:13] VITALS: BP 145/71; PULSE 78; RESP 18; TEMP 36.2; O2SAT 100
[2023-04-01 16:00] VITALS: BP 121/65; PULSE 68; RESP 20; TEMP 35.8; O2SAT 96
--- NOTE | 2023-04-01 16:25 | MHC.CM.PN ---
PT REPORTS HE LIVES WITH HIS AND IS INDEPENDENT WITH CARE HE DENIES USE OF DME OR HOME SERVICES HE SAYS HIS IS HIS HCP, COPY REQUESTED PCP: TAYLOR NICOLE IMM DELIVERED DCP: HOME NO SERVICES VIA PRIVATE TRANSPORT
[2023-04-01 17:00] VITALS: BP 124/56; PULSE 84; RESP 18; TEMP 35.8; O2SAT 98
[2023-04-01 19:42] VITALS: BP 141/64; PULSE 69; RESP 18; TEMP 35.3; O2SAT 100
[2023-04-02 03:28] VITALS: BP 111/56; PULSE 62; RESP 14; TEMP 36.5; O2SAT 100
[2023-04-02 05:43] LABS: Hematocrit 27.4 % (42.0-52.0); Hemoglobin 9.6 g/dl (14.0-18.0); Mean Corpuscular Hemoglobin 32.4 pg (27.0-33.0); Mean Corpuscular Volume 92.6 fL (80.0-98.0); Mean Platelet Volume 10.2 fL (9.4-12.4); Platelet Count 121 X10*3/uL (160-400); Red Blood Count 2.96 X10*6/uL (4.60-5.80); Red Cell Distribution Width 14.5 % (11.0-16.0); White Blood Count 3.3 X10*3/uL (4.8-10.8)
[2023-04-02 05:53] LABS: Ammonia 123 umol/L (13-55)
[2023-04-02 05:57] LABS: INTERNATIONAL NORM RATIO 1.2 (0.9-1.1); Prothrombin Time 13.9 SEC (10.0-13.1)
[2023-04-02 06:03] LABS: Alanine Aminotransferase 16 U/L (0-40); Albumin Level 3.3 g/dL (3.5-5.0); Alkaline Phosphatase 91 U/L (39-117); Anion Gap 15 (12-20); Aspartate Amino Transferase 22 U/L (5-37); Bilirubin Total 0.6 mg/dL (0.0-1.0); Blood Urea Nitrogen 40 mg/dL (9-16); Calcium 9.2 mg/dL (8.4-10.2); Carbon Dioxide 16 mmol/L (22-29); Chloride 110 mmol/L (96-108); Creatinine Clr Calc Pharmacy 25.4; Estimated Glomerular Filt Rate 25; Glucose Random 127 mg/dL (60-115); Potassium 4.6 mmol/L (3.3-5.1); Sodium 136 mmol/L (135-145); Total Protein 6.3 g/dL (6.5-8.0)
[2023-04-02 07:21] VITALS: BP 139/65; PULSE 68; RESP 16; TEMP 36.1; O2SAT 99
--- NOTE | 2023-04-02 12:50 | PM.DS ---
DS: Providers Provider Date of Service: 04/02/23 Date of admission: 03/31/23 16:22 Date of discharge: 04/02/23 Primary care physician: Juan Carlos Freeman MD Consults: 03/31/23 16:39 Consult to Gastroenterology Routine Consulting Provider: Devin Blake Reason for consultation: hepatic encephalopathy, s/p liver transplant DS: Diagnosis Discharge Diagnosis (1) Hepatic encephalopathy: Status: Acute (2) Altered mental status: Status: Acute (3) Status post liver transplant: Status: Acute (4) CKD (chronic kidney disease) stage 4, GFR 15-29 ml/min: Status: Acute DS: Summary Hospital Course Hospital Course: from admission H+P from 03/31/23: 72-year-old male with history of aortic stenosis s/p TAVR procedure anticoagulated with Eliquis, paroxysmal atrial fibrillation, history MSSA bacteremia, hypertension, hypercholesterolemia, CKD stage 3, CHF, history Luz cirrhosis s/p hepatic transplant following with [facility], and chronic normocytic anemia presented to the ED earlier today with his for evaluation of confusion.? The patient is on lactulose 20 mg t.i.d. which the reports this for constipation so has been withholding doses due to hyperglycemia.? Over the last few days, has been increasingly confused and disoriented with shakes and some urinary incontinence which is different than his baseline.? The patient tells me he does not recall the events of yesterday.? His tells me that he has been at [facility] recently for elevated ammonia levels but was told these were not related to his liver.? He does continue following with the [facility] and underwent transplant in 2017.? He is compliant with tacrolimus. On arrival, VSS. He has chronic leukopenia, stable normocytic anemia. Creat 2.35, BUN 38 consistent with baseline, electrolytes except for CO2 14. Hepatic function normal, except ammonia 97. UA normal. Head CT without acute intracranial abnormality. 72yo M s/p liver transplant for LUZ cirrhosis in 2017 at [facility] on tacrolimus, AoS s/p TAVR, pAF on apixaban, HTN, CKD3-4, [place] [facility] [place] presenting with confusion/disorientation/asterixis, admitted for hepatic encephalopathy. This improved markedly with lactulose treatment. Asterixis resolved completely even as serum ammonia increased but it is well-known that ammonia level does not necessarily correlate with the degree of encephalopathy. As it turns out, his was not giving him lactulose for concern that as a sugar, it was increasing his blood sugar. I explained that lactulose is not broken down until the colon and thus doesn't cause hyperglycemia. The greater question is why this transplant patient has encephalopathy 5-6 years after transplant without any signs of recurrence of the cirrhosis. I called the [facility] where he had his transplant and they will arrange for outpatient liver Ureaplasma/mycoplasma culture from urine ordered but unlikely the cause of his encephalopathy. He was discharged on rifaximin and lactulose. He will follow up with his local GI, Dr Shari Chapin as well. Time Spent with Patient Time attestation: Total time managing care of this patient today ___35_ minutes. Discharge coordination time: Greater than 30 minutes Quality: Safe Use of Opioids Does Pt have an Active Cancer Diagnosis on the Problem List?: No Quality: Stroke Does the patient have a stroke diagnosis?: No Physical Exam Vital Signs: Vital Signs: Last Vital Signs Temp 96.9 F 04/02/23 07:21 Pulse 68 04/02/23 07:21 Resp 16 04/02/23 07:21 BP 139/65 04/02/23 07:21 Pulse Ox 99 04/02/23 07:21 O2 Del Method Room Air 04/02/23 07:21 BMI result Body Mass Index 35.9 Gen: in no acute distress HEENT: sclera anicteric, moist mucus membranes Neck: supple Lungs: clear to auscultation bilaterally Heart: regular rate and rhythm, no murmurs Abd: soft, non-tender, non-distended Ext: no edema Skin: warm/well-perfused Neuro: alert and oriented x3, no focal findings Psych: appropriate affect DS: Data Data Completed and Pending Completed studies during hospitalization [Text1]: Laboratory Results WBC 3.3 X10*3/uL (4.8-10.8) L 04/02/23 05:31 RBC 2.96 X10*6/uL (4.60-5.80) L 04/02/23 05:31 Hgb 9.6 g/dl (14.0-18.0) L 04/02/23 05:31 Hct 27.4 % (42.0-52.0) L 04/02/23 05:31 MCV 92.6 fL (80.0-98.0) 04/02/23 05:31 MCH 32.4 pg (27.0-33.0) 04/02/23 05:31 MCHC 35.0 g/dl (31.0-36.0) 04/02/23 05:31 RDW 14.5 % (11.0-16.0) 04/02/23 05:31 Plt Count 121 X10*3/uL (160-400) L 04/02/23 05:31 MPV 10.2 fL (9.4-12.4) 04/02/23 05:31 Immature Gran % (Auto) 0.0 % (0.0-0.4) 04/01/23 05:33 Neut % (Auto) 38.7 % (45-73) L 04/01/23 05:33 Lymph % (Auto) 47.7 % (20-40) H 04/01/23 05:33 [place] % (Auto) 9.4 % (2-11) 04/01/23 05:33 Eos % (Auto) 3.6 % (0-4) 04/01/23 05:33 Baso % (Auto) 0.6 % (0-2) 04/01/23 05:33 Lymph # (Auto) 1.5 X10*3/uL (1.2-4.9) 04/01/23 05:33 [place] # (Auto) 0.3 X10*3/uL (0.1-1.2) 04/01/23 05:33 Eos # (Auto) 0.1 X10*3/uL (0.0-0.4) 04/01/23 05:33 Baso # (Auto) 0.0 X10*3/uL (0.0-0.2) 04/01/23 05:33 Abs Immat Gran (auto) 0.00 X10*3/uL (0.00-0.03) 04/01/23 05:33 Absolute Neuts (auto) 1.2 x10*3/uL (2.0-8.3) L 04/01/23 05:33 Absolute Nucleated RBC 0.000 X10*3/uL (0.0-0.012) 04/02/23 05:31 Nucleated RBC % (auto) 0.0 /100WBC (0.0-0.2) 04/02/23 05:31 PT 13.9 SEC (10.0-13.1) H 04/02/23 05:31 INR 1.2 (0.9-1.1) H 04/02/23 05:31 APTT 33.4 SEC (26.0-36.4) 03/31/23 11:35 VBG pH 7.46 (7.32-7.43) H 04/01/23 05:36 VBG pCO2 24 mmHg 04/01/23 05:36 VBG pO2 174 mmHg 04/01/23 05:36 VBG HCO3 17 mmol/L (22-26) L 04/01/23 05:36 VBG O2 Saturation 100.0 % 04/01/23 05:36 VBG Base Excess -4.4 mmol/L 04/01/23 05:36 Sodium 136 mmol/L (135-145) 04/02/23 05:31 Potassium 4.6 mmol/L (3.3-5.1) 04/02/23 05:31 Chloride 110 mmol/L (96-108) H 04/02/23 05:31 Carbon Dioxide 16 mmol/L (22-29) L 04/02/23 05:31 Anion Gap 15 (12-20) 04/02/23 05:31 BUN 40 mg/dL (9-16) H 04/02/23 05:31 Creatinine 2.54 mg/dL (0.5-1.4) H 04/02/23 05:31 Estim Creat Clear Calc 25.4 04/02/23 05:31 Estimated GFR 25 04/02/23 05:31 POC Glucose 213 mg/dL (60-115) H 04/02/23 11:16 Random Glucose 127 mg/dL (60-115) H 04/02/23 05:31 Calcium 9.2 mg/dL (8.4-10.2) 04/02/23 05:31 Magnesium 2.0 mg/dL (1.6-2.6) 03/31/23 11:35 Total Bilirubin 0.6 mg/dL (0.0-1.0) 04/02/23 05:31 Direct Bilirubin 0.2 mg/dL (0.0-0.5) 04/01/23 05:33 AST 22 U/L (5-37) 04/02/23 05:31 ALT 16 U/L (0-40) 04/02/23 05:31 Alkaline Phosphatase 91 U/L (39-117) 04/02/23 05:31 Ammonia 123 umol/L (13-55) H 04/02/23 05:31 Total Protein 6.3 g/dL (6.5-8.0) L 04/02/23 05:31 Albumin 3.3 g/dL (3.5-5.0) L 04/02/23 05:31 Urine Color Yellow 03/31/23 11:57 Urine Appearance Clear 03/31/23 11:57 Urine pH 6.0 (5.0-9.0) 03/31/23 11:57 Ur Specific [place] 1.015 (1.005-1.025) 03/31/23 11:57 Urine Protein Negative mg/dL (Neg-Trace) 03/31/23 11:57 Urine Glucose (UA) Negative mg/dL (Negative) 03/31/23 11:57 Urine Ketones Negative mg/dL (Negative) 03/31/23 11:57 Urine Blood Negative (Negative) 03/31/23 11:57 Urine Nitrite Negative (Negative) 03/31/23 11:57 Ur Leukocyte Esterase Negative (Negative) 03/31/23 11:57 Stool Occult Blood NEGATIVE (NEGATIVE) 04/01/23 12:30 Hep Bs Antigen Negative (Negative) 04/01/23 19:01 Hep Bs Antibody NONREACTIVE (Nonreactive) 04/01/23 19:01 Hep B Core Total Ab Nonreactive (Nonreactive) 04/01/23 19:01 Hepatitis C Ab (EIA) Nonreactive (Nonreactive) 04/01/23 19:[address] 03/31/23 12:28 IMPRESSION: No acute intracranial hemorrhage or territorial infarction. Generalized parenchymal volume loss. Abdomen Ultrasound 03/31/23 16:53 IMPRESSION: No ascites. Normal liver Doppler exam. Doppler Study Ultrasound 03/31/23 16:53 IMPRESSION: No ascites. Normal liver Doppler exam. Chest X-Ray 04/01/23 15:17 IMPRESSION: * Clear lungs. Discharge Plan Discharge Anticipated Discharge Date/Time: 04/02/23 12:46 Patient Disposition: Home, Self-Care Discharge Diagnosis: hepatic encephalopathy liver transplant CKD stage 4 Referrals: Juan Carlos Freeman MD [Primary Care Provider] - 1 Week Shari Chapin MD [Physician] - 1 Week Discharge Medications: New Xifaxan 550 mg tablet 550 mg PO BID Qty: 60 0RF Continued furosemide 40 mg tablet 40 mg PO DAILY atorvastatin 20 mg tablet 20 mg PO DAILY omeprazole 40 mg capsule,delayed release(DR/EC) 40 mg PO DAILY repaglinide 0.5 mg tablet 0.5 mg PO TID amlodipine 10 mg tablet 10 mg PO DAILY ferrous sulfate 325 mg (65 mg iron) tablet 325 mg PO DAILY lisinopril 2.5 mg tablet 2.5 mg PO DAILY tacrolimus 1 mg capsule 1 mg PO DAILY tacrolimus 0.5 mg capsule 0.5 mg PO BEDTIME Januvia 50 mg tablet 50 mg PO DAILY Eliquis 5 mg tablet 5 mg PO BID sennosides [senna] 8.6 mg Tablet 17.2 mg PO DAILY ascorbic acid (vitamin C) 500 mg Tablet 500 mg PO DAILY docusate sodium [Colace] 100 mg Capsule 100 mg PO BID Changed lactulose 10 gram/15 mL solution See Rx Instructions .ROUTE .COMPLEX Qty: 3000 0RF Rx Instructions: 30 mL orally 3-4 times a day; adjust to achieve 3-4 soft bowel movements daily Discharge Orders: Discharge Order (Routine); Ordered 04/02/23 Ordered By: Wendie Diane Diet: Diabetic diet Activity on Discharge: As tolerated Stand Alone Forms: Patient Portal Discharge page Care Plan Goals: liver and kidney health Health Concerns: hepatic encephalopathy liver transplant CKD stage 4 Plan of Treatment: lactulose 30 mL 3-4x a day, adjust to achieve 3-4 soft BMs/d also take rifaximin 550 mg 2x a day follow up with GI Dr Chapin in 2 weeks follow up with [facility] for liver biopsy; call to arrange appointment Please follow up with your primary care doctor within 1 week. Return to the hospital if you experience recurrent or worsening symptoms. Assessment: See Discharge Summary.
--- NOTE | 2023-04-02 13:32 | MHC.CM.PN ---
PT WILL DC HOME TODAY WITH NO SERVICES FAMILY TO TRANSPORT
== END 2023-04-02 13:49 | disposition home or self-care (01) | DRG 279 ==
LOC: HO.ED 15:32 → HO.S3 21:24 → HO.EDOVER 04-01 09:19 → HO.S3 04-01 09:19
PROVIDERS: Admitting Provider Physician Assistant; Emergency Provider Emergency Medicine; PCP Internal Medicine; Visit Provider Family Medicine
DX: T86.40 Unspecified complication of liver transplant (principal); K76.82 Hepatic encephalopathy; D84.821 Immunodeficiency due to drugs; E87.3 Alkalosis; D63.1 Anemia in chronic kidney disease; T47.3X6A Underdosing of saline and osmotic laxatives, initial encounter; Z91.138 Patient's unintentional underdosing of medication regimen for other reason; E11.22 Type 2 diabetes mellitus with diabetic chronic kidney disease; I12.9 Hypertensive chronic kidney disease with stage 1 through stage 4 chronic kidney disease, or unspecified chronic kidney disease; Z95.2 Presence of prosthetic heart valve; I48.0 Paroxysmal atrial fibrillation; E78.00 Pure hypercholesterolemia, unspecified; N18.30 Chronic kidney disease, stage 3 unspecified; Z79.01 Long term (current) use of anticoagulants; Z79.621 Long term (current) use of calcineurin inhibitor; Z79.899 Other long term (current) drug therapy
CPT/HCPCS: 36415; 70450; 71046; 76705; 80048; 80053; 80076; 80197; 81003; 82140; 82272; 82803; 82947; 83735; 85025; 85027; 85610; 85730; 86704; 86706; 86803; 87109; 87340; 93975; 99285

== ENCOUNTER 2023-04-15 10:18 | Day surgery (SDC) | payer OTHER, SELFPAY ==
[2023-04-13 11:17] VITALS: BMI 38.2
--- NOTE | 2023-04-14 14:17 | HO.ANESPROP2 ---
Documented by User: Radha Jo NP 04/14/23 14:35 HPI - Anesthesia Eval Consult details Narrative: 72yo M for Upper Endoscopy and Colonoscopy s/p TAVR 01/19/23 s/p hepatic transplant [address] 4. Baseline creat = 2.3 [facility] [place]23-04/02/23: Hepatic encephalopathy r/t lactulost noncompliance PMFSH Active Problems Active Problems: All Active Problems (Updated 04/10/23 @ 00:01 by Екатерина Barbosa) CKD (chronic kidney disease) stage 4, GFR 15-29 ml/min (Acute) Status post liver transplant (Acute) Hepatic encephalopathy (Acute) Abnormal CT scan, gastrointestinal tract (Acute) Rhabdomyolysis (Acute) Epistaxis (Acute) Upper GI bleed (Acute) Status post cardiac catheterization (Acute) Status post transcatheter aortic valve replacement (TAVR) using bioprosthesis (Acute) Chronic heart failure with preserved ejection fraction (Acute) Serum ammonia increased (Acute) Altered mental status (Acute) PAF (paroxysmal atrial fibrillation) (Acute) Acute diastolic (congestive) heart failure (Acute) Aortic stenosis (Acute) Duodenal ulcer (Acute) MSSA bacteremia (Acute) Duodenitis (Acute) Past Medical History Medical History Acute diastolic (congestive) heart failure Anemia Aortic stenosis Cirrhosis CKD (chronic kidney disease) stage 3, GFR 30-59 ml/min Diabetes Duodenal ulcer Duodenitis Fatty liver GERD (gastroesophageal reflux disease) Gram-positive bacteremia Hypercholesteremia Hypertension MSSA bacteremia Non-rheumatic aortic stenosis Osteomyelitis PAF (paroxysmal atrial fibrillation) Staphylococcus aureus bacteremia Family History Family History Mother Myocardial infarct Family history of problems with anesthesia: No Surgical History Surgical History History of back surgery Hx of colonoscopy Hx of lymph node excision Liver transplant recipient Liver transplant recipient S/P TAVR (transcatheter aortic valve replacement) History of Problems with Anesthesia: No Social History Social History Household Members: Family Housing: House Are you a primary care process manager to a significant other at home: No Do you presently have visiting nurse or other home services: No Alcohol intake: never Patient Tobacco Use Status: Never used Tobacco Have you been hit, kicked, punched, or otherwise hurt by someone within the past year? If so, by whom?: No Are you DNR?: No Advance Directives: No Advance Directives Information Provided: Yes Advance Directives Date on File: 05/19/22 Recently lost weight without trying: No Eating poorly because of decreased appetite: No Nutrition Risks: No Nutritional Risk Poor oral hygiene: No service: No Current occupational status: retired [employer] Allergies Allergy/AdvReac Type Severity Reaction Status Date / Time ibuprofen [IBUPROFEN] Allergy Severe SWELLING Verified 03/15/23 13:37 peanut [PEANUTS] Allergy Unknown SWELLING Verified 03/15/23 13:37 hydromorphone [From Dilaudid] Allergy Vomiting Verified 04/13/23 11:19 perflutren Allergy Back Pain Verified 04/13/23 11:19 prednisone Allergy Unknown Verified 04/13/23 11:19 Home Medications Medication Instructions Recorded Confirmed Last Taken Type amlodipine 10 mg tablet 10 mg PO DAILY 03/31/23 04/13/23 03/31/23 History apixaban 5 mg tablet (Eliquis) 5 mg PO BID 03/31/23 04/13/23 03/31/23 History ascorbic acid (vitamin C) 500 mg 500 mg PO DAILY 03/31/23 04/13/23 03/30/23 History tablet atorvastatin 20 mg tablet 20 mg PO DAILY 03/31/23 04/13/23 03/31/23 History docusate sodium 100 mg capsule 100 mg PO BID 03/31/23 04/13/23 03/30/23 History (Colace) ferrous sulfate 325 mg (65 mg 325 mg PO DAILY 03/31/23 04/13/23 03/31/23 History iron) tablet furosemide 40 mg tablet 40 mg PO DAILY 03/31/23 04/13/23 03/30/23 History lisinopril 2.5 mg tablet 2.5 mg PO DAILY 03/31/23 04/13/23 03/31/23 History omeprazole 40 mg capsule,delayed 40 mg PO DAILY 03/31/23 04/13/23 03/30/23 History release repaglinide 0.5 mg tablet 0.5 mg PO TIDAC 03/31/23 04/13/23 03/31/23 History sennosides 8.6 mg tablet (senna) 17.2 mg PO DAILY 03/31/23 04/13/23 Unknown History sitagliptin phosphate 50 mg tablet 50 mg PO DAILY 03/31/23 03/31/23 03/31/23 History (Anjaliia) tacrolimus 0.5 mg capsule, 0.5 mg PO BEDTIME 03/31/23 03/31/23 Unknown History immediate-release tacrolimus 1 mg capsule, 1 mg PO BID 03/31/23 04/13/23 03/31/23 History immediate-release cholecalciferol (vitamin D3) 25 25 mcg PO DAILY 04/13/23 04/13/23 Unknown History mcg (1,000 unit) tablet clonidine HCl 0.1 mg tablet 0.05 mg PO DAILY 04/13/23 04/13/23 Unknown History multivitamin 1 tab PO DAILY 04/13/23 04/13/23 Unknown History sitagliptin phosphate 50 mg tablet 50 mg PO DAILY 04/13/23 04/13/23 Unknown History (Sepkleber) Exam Exam Date and Time: April 14, 2023 1417 Height,Weight and Vital Signs: Height 5 ft 1 in Weight 91.626 kg Pertinent Lab Results Pertinent Lab Results: Laboratory Tests 04/02/23 04/02/23 05:31 05:31 WBC 3.3 L Hgb 9.6 L Hct 27.4 L Plt Count 121 L Sodium 136 Potassium 4.6 Chloride 110 H Carbon Dioxide 16 L BUN 40 H Creatinine 2.54 H Narrative Narrative: EKG 02/2023 SB with 1st degree AV block @ 58 LBBB ECHO 01/2023 Conclusions: - The left ventricular systolic function is hyperdynamic.? The ? visually estimated ejection fraction is >70%.? - Evidence suggests grade II (moderate) diastolic dysfunction. ? - A bioprosthetic aortic valve is present.? The prosthetic aortic valve appears to be functioning normally.? Assessment and Plan Assessment Anesthesia Assessment: Chart Reviewed Final Anesthetic Review Family History of Problems with Anesthesia: No History of Problems with Anesthesia: No Documented by User: Noreen Hankins MD 04/15/23 12:34 PMFSH Past Medical History Medical History Acute diastolic (congestive) heart failure Anemia Aortic stenosis Cirrhosis CKD (chronic kidney disease) stage 3, GFR 30-59 ml/min Diabetes Duodenal ulcer Duodenitis Fatty liver GERD (gastroesophageal reflux disease) Gram-positive bacteremia Hypercholesteremia Hypertension MSSA bacteremia Non-rheumatic aortic stenosis Osteomyelitis PAF (paroxysmal atrial fibrillation) Staphylococcus aureus bacteremia Family History Family History Mother Myocardial infarct Surgical History Surgical History History of back surgery Hx of colonoscopy Hx of lymph node excision Liver transplant recipient Liver transplant recipient S/P TAVR (transcatheter aortic valve replacement) Social History Social History Household Members: Family Housing: House Are you a primary care process manager to a significant other at home: No Do you presently have visiting nurse or other home services: No Alcohol intake: never Patient Tobacco Use Status: Never used Tobacco Have you been hit, kicked, punched, or otherwise hurt by someone within the past year? If so, by whom?: No Are you DNR?: No Advance Directives: No Advance Directives Information Provided: Yes Advance Directives Date on File: 05/19/22 Recently lost weight without trying: No Eating poorly because of decreased appetite: No Nutrition Risks: No Nutritional Risk Poor oral hygiene: No service: No Current occupational status: retired Meds Allergies Allergy/AdvReac Type Severity Reaction Status Date / Time ibuprofen [IBUPROFEN] Allergy Severe SWELLING Verified 03/15/23 13:37 peanut [PEANUTS] Allergy Unknown SWELLING Verified 03/15/23 13:37 hydromorphone [From Dilaudid] Allergy Vomiting Verified 04/13/23 11:19 perflutren Allergy Back Pain Verified 04/13/23 11:19 prednisone Allergy Unknown Verified 04/13/23 11:19 Home Medications Medication Instructions Recorded Confirmed Last Taken Type amlodipine 10 mg tablet 10 mg PO DAILY 03/31/23 04/13/23 03/31/23 History apixaban 5 mg tablet (Eliquis) 5 mg PO BID 03/31/23 04/13/23 03/31/23 History ascorbic acid (vitamin C) 500 mg 500 mg PO DAILY 03/31/23 04/13/23 03/30/23 History tablet atorvastatin 20 mg tablet 20 mg PO DAILY 03/31/23 04/13/23 03/31/23 History docusate sodium 100 mg capsule 100 mg PO BID 03/31/23 04/13/23 03/30/23 History (Colace) ferrous sulfate 325 mg (65 mg 325 mg PO DAILY 03/31/23 04/13/23 03/31/23 History iron) tablet furosemide 40 mg tablet 40 mg PO DAILY 03/31/23 04/13/23 03/30/23 History lisinopril 2.5 mg tablet 2.5 mg PO DAILY 03/31/23 04/13/23 03/31/23 History omeprazole 40 mg capsule,delayed 40 mg PO DAILY 03/31/23 04/13/23 03/30/23 History release repaglinide 0.5 mg tablet 0.5 mg PO TIDAC 03/31/23 04/13/23 03/31/23 History sennosides 8.6 mg tablet (senna) 17.2 mg PO DAILY 03/31/23 04/13/23 Unknown History sitagliptin phosphate 50 mg tablet 50 mg PO DAILY 03/31/23 03/31/23 03/31/23 History (Januvia) tacrolimus 0.5 mg capsule, 0.5 mg PO BEDTIME 03/31/23 03/31/23 Unknown History immediate-release tacrolimus 1 mg capsule, 1 mg PO BID 03/31/23 04/13/23 03/31/23 History immediate-release cholecalciferol (vitamin D3) 25 25 mcg PO DAILY 04/13/23 04/13/23 Unknown History mcg (1,000 unit) tablet clonidine HCl 0.1 mg tablet 0.05 mg PO DAILY 04/13/23 04/13/23 Unknown History multivitamin 1 tab PO DAILY 04/13/23 04/13/23 Unknown History sitagliptin phosphate 50 mg tablet 50 mg PO DAILY 04/13/23 04/13/23 Unknown History (Januvia) Exam Airway Mallampati Class: III (globally poor dentition) TM Dist: >3cm Neck ROM: Limited Loose/Missing/Broken Teeth: Yes and Upper Heart: RRR Lungs: CTA Assessment and Plan Assessment Anesthesia Assessment: Anesthesia Plan Discussed Final Anesthetic Review NPO: Yes ASA Class: III Final Preanesthetic Review: Meds/Allgs Chart Reviewed, Consent Obtained/Reviewed and Anes Risks/Benef Reviewed Patient Risk: Intermediate Procedure Risk: Intermediate Anesthetic Plan Anesthetic Plan: MAC: Disposition: Standard PACU
--- NOTE | 2023-04-15 10:57 | P.OP_ITS ---
Operative Note Operative Note Date of Service: 04/15/23 Narrative: Procedure:?Esophagogastroduodenoscopy and colonoscopy Endoscopist:?Shari Chapin MD Indication:?Duodenal ulcer, anemia Anesthesia Provider:?Pari Hunter CRNA Anesthesia Type:?MAC Instrument:?Olympus GIF-H190, PCF-H190L EGD Procedure:?? The procedure, indications, preparation and potential complications were reviewed with the patient, who indicated understanding and gave written informed consent to proceed. A physical exam was performed. The endoscope was introduced through the mouth, and advanced to the second part of duodenum. The mucosa was carefully examined on slow withdrawal of the endoscope.? There were no immediate complications.? Patient tolerated the procedure well. EGD Findings:? * Esophagus:? Normal mucosa noted in the entire esophagus.? The Z line is at 36 cm. * Stomach:? Normal gastric mucosa. Retroflexion was performed in the fundus. * Duodenum:? Mild erythema was noted in the duodenal bulb. Remaining duodenal mucosa was normal to the extent visualised.? Colonoscopy Procedure:? The patient was then turned for the colonoscopy. A digital rectal exam was performed which was abnormal for external hemorrhoids.? A distal attachment cap was affixed to the tip of the scope and the colonoscope was then inserted through the anus and advanced through the colon to the cecum at 75 cm and terminal ileum. Appendiceal orifice and ileocecal valve were identified. Mucosa was carefully examined under high definition white light as the instrument was slowly withdrawn in a retrograde panoramic fashion. Retroflexion was performed in rectum. The procedure was not difficult. There were no immediate obvious complications. The quality of the prep was BBPS: 2+2+3 = adequate Withdrawal time: 12 minutes Limitations: No limitation. Findings: Mucosa: Normal mucosa to cecum and terminal ileum.? Protruding lesions: * A 2 cm subepithelial lesion was noted in the transverse colon. Pillow sign was positive. Using a [employer] biopsy forceps, [id number] biopsies were obtained revealing yellow adipose tissue underneath. These were sent for histology. * Medium internal hemorrhoids without stigmata of recent bleeding. Excavated lesions: * Scattered diverticulosis in the whole colon. Impression: 1. Normal esophagus 2. Normal stomach mucosa 3. Peptic duodenitis 4. Normal colon and terminal ileum mucosa 5. Likely lipoma in transverse colon 6. Diverticulosis 7. Internal and external hemorrhoids Recommendations:?? * No obv source of anemia. Will repeat CBC in 3 months and if continues to downtrend, will review indication for CTE vs VCE. * Can resume Eliquis today. * Await pathology results.? * Repeat colonoscopy for asymptomatic colon cancer screening not recommended due to age and comorbidities.
[2023-04-15 11:07] LABS: Glucose, Whole Blood 100 mg/dL (60-115)
[2023-04-15 11:19] VITALS: BP 137/54; PULSE 57; RESP 18; TEMP 36.3; O2SAT 100
[2023-04-15 12:18] VITALS: BP 96/44; PULSE 49; RESP 16; TEMP 36.2; O2SAT 100
[2023-04-15 12:33] VITALS: BP 109/58; PULSE 51; RESP 16; TEMP 36.2; O2SAT 100
== END 2023-04-15 13:15 | disposition home or self-care (01) ==
PROVIDERS: PCP Internal Medicine; Visit Provider Internal Medicine
PROC: (CPT 45380; principal; 2023-04-15 12:10)
DX: K29.80 Duodenitis without bleeding (principal); D64.9 Anemia, unspecified; K64.8 Other hemorrhoids; K64.4 Residual hemorrhoidal skin tags; K57.30 Diverticulosis of large intestine without perforation or abscess without bleeding; K63.9 Disease of intestine, unspecified; E11.22 Type 2 diabetes mellitus with diabetic chronic kidney disease; I13.0 Hypertensive heart and chronic kidney disease with heart failure and stage 1 through stage 4 chronic kidney disease, or unspecified chronic kidney disease; N18.30 Chronic kidney disease, stage 3 unspecified; I50.31 Acute diastolic (congestive) heart failure; I48.0 Paroxysmal atrial fibrillation; E78.00 Pure hypercholesterolemia, unspecified; K20.90 Esophagitis, unspecified without bleeding; K29.70 Gastritis, unspecified, without bleeding; Z95.3 Presence of xenogenic heart valve; Z94.4 Liver transplant status; Z79.01 Long term (current) use of anticoagulants; Z79.84 Long term (current) use of oral hypoglycemic drugs; Z79.899 Other long term (current) drug therapy
CPT/HCPCS: 45380; 43235; 82947; 88305

== ENCOUNTER → 2023-04-15 10:18 | Outpatient (BNV) | payer OTHER, SELFPAY | PROVIDERS: PCP Internal Medicine; Visit Provider Internal Medicine | DX: K26.9 Duodenal ulcer, unspecified as acute or chronic, without hemorrhage or perforation (principal); D64.9 Anemia, unspecified; D17.5 Benign lipomatous neoplasm of intra-abdominal organs; K57.30 Diverticulosis of large intestine without perforation or abscess without bleeding; K64.8 Other hemorrhoids | CPT/HCPCS: 43235; 45380 ==

== ENCOUNTER 2023-04-27 08:37 | Outpatient (AMB) | payer OTHER, SELFPAY ==
--- NOTE | 2023-04-27 08:47 | A.OFFVIS_ITS ---
Intake Vital Signs 04/27/23 08:48 Height 5 ft 1 in Weight 207 lb 3.752 oz BMI 39.2 BP 134/65 Blood Pressure Location Lt brachial Position Sitting Pulse 59 Intake Visit Reasons: S/P double; Dr. Chapin Intake Note: Boaz presents in the office as a follow up to his procedures. CC: No concerns today just here for the results to the procedures. Construction Person Required: No Allergies ibuprofen [IBUPROFEN] Allergy (Severe, Verified 04/27/23 08:49) SWELLING peanut [PEANUTS] Allergy (Unknown, Verified 04/27/23 08:49) SWELLING hydromorphone [From Dilaudid] Allergy (Verified 04/27/23 08:49) Vomiting perflutren Allergy (Verified 04/27/23 08:49) Back Pain prednisone Allergy (Verified 04/27/23 08:49) Unknown HPI HPI Comments History of Present Illness Details This is a 72-year-old gentleman with past medical history of decompensated cirrhosis status post liver transplantation 2016 on tacrolimus, type 2 diabetes, chronic heart failure, osteomyelitis of the spine, atrial fibrillation on Eliquis, admission for CHF exacerbation in the setting of worsening and anemia of blood loss in May 2022 found to have esophagitis, gastritis with ulcer, large duodenal ulcer who is here for follow up . Recap: [place] [facility] [place] worsening shortness of breath. Hb 9.8-->7.3. EGD 06/04/22: Moderate esophagitis. Gastritis with one shallow nonbleeding ulcer s/p hemoclip. Oozing duodenal ulcer 10-12mm s/p x2 OVESCO and hemospray. Prior to this he was admitted for osteomyelitis and was noted to have UGIB at that time admission as well. EGD 05/22/22:? Found to have gastritis with multiple chronic appearing ulcers in the body and antrum without high-risk stigmata.? Also had large 2-3 cm clean based ulcer in the duodenal bulb and 2nd portion of the duodenum.? Path report showed chronic and active duodenitis and gastritis without H pylori.? No viral changes histologically.? CMV immunostain negative. 07/14/22: Reports no gastrointestinal complaints to include abdominal pain, nausea, vomiting, diarrhea, melena or hematochezia. Notes improvement in sensation of bloating and frequent belching. Continues with omeprazole 20mg BID. Of note, ran out of Eliquis last week and has not received a refill yet. Tells me he is going for aortic valve evaluation tomorrow. 09/01/22: He underwent a diagnostic catheterization 06/2022 that showed minimal obstructive disease, currently awaiting appointment with the TAVR team. Continues to report worsening shortness of breath with exertion. He has no gastrointestinal complaints include abdominal pain, nausea, vomiting, change in appetite, change in bowel habits, unintentional weight loss, melena or blood in stool. Has been taking his omeprazole as prescribed. Avoiding NSAIDs. He is on Eliquis for Afib. 11/30/22: Was seen by [facility] interventional cardiology (Dr. Stroud) and was scheduled to have a TAVR in September. However, pt then ended up getting admitted for influenza followed by another admission for fall leading to a short rehab stay. He is now scheduled to see Cardiology for follow-up next month, to decide on a new date. GI hassan, no abdominal sx to include abd pain, N,V,D. No melena or hematochezia. He has been taking his PPI and iron supplements daily. Last colonoscopy was in 2017 through [facility] and reportedly normal. 04/01/23: inpatient consultation: Was admitted for confusion and hepatic encephalopathy: Etiology of encephalopathy appears to be hepatic. LFTs are normal so chronic rejection does not appear to be likely. Given his post-transplantation status, PV thrombosis/stenosis has already been ruled out. Flow was noted ot be appropriately hepatopetal which also argues against new R sided heart failure leading to reversal of venous flow and encephalopathy. Reviewed with the pt that will likely need assessment of his transplanted liver as ideally should not be experiencing any hepatic encephalopathy and may require a biopsy and dedicated imaging. He is aware to contact [facility] to set up an appt. Otherwise, he is back to baseline and doing well now and can be discharged once other work up (as below) has been sent. 04/15/23: EGD/colo (anemia, hx of duodenal ulcer) 1. Normal esophagus 2. Normal stomach mucosa 3. Peptic duodenitis 4. Normal colon and terminal ileum mucosa 5. Likely lipoma in transverse colon 6. Diverticulosis 7. Internal and external hemorrhoids Path: Colon, transverse, biopsy:? Colonic mucosa with reactive lymphoid aggregate and scant submucosal adipose tissue (see comment).? Comment:? The scant submucosal adipose tissue may represent a portion of a submucosal lipoma. 04/27/23: No acute gastrointestinal complaints. NO abd pain, melena, N,V. Continuing iron supplement and omeprazole 40 daily. Had visit with transplant hep at [facility] (Dr Richard Donovan) and scheduled for MRI later this month. [facility] Medical History (Updated 04/27/23 @ 11:02 by Shari Chapin MD) Acute diastolic (congestive) heart failure Anemia Aortic stenosis Cirrhosis CKD (chronic kidney disease) stage 3, GFR 30-59 ml/min Diabetes Duodenal ulcer Duodenitis Fatty liver GERD (gastroesophageal reflux disease) Gram-positive bacteremia Hypercholesteremia Hypertension MSSA bacteremia Non-rheumatic aortic stenosis Osteomyelitis PAF (paroxysmal atrial fibrillation) Staphylococcus aureus bacteremia Surgical History History of back surgery History of esophagogastroduodenoscopy (EGD) Hx of colonoscopy Hx of lymph node excision Liver transplant recipient Liver transplant recipient S/P TAVR (transcatheter aortic valve replacement) Family History Mother Myocardial infarct Social History Household Members: Family Housing: House Are you a primary home care chaplain to a significant other at home: No Do you presently have visiting nurse or other home services: No Alcohol intake: never Patient Tobacco Use Status: Never used Tobacco Advance Directives Date on File: 05/19/22 service: No Current occupational status: retired Physical Exam Vital Signs: Last Vital Signs Pulse 59 04/27/23 08:48 BP 134/65 04/27/23 08:48 BMI result Body Mass Index 39.2 Gen Appear: NAD, well nourished HEENT: No scleral icterus Chest: CTA CVS: Regular S1/S2 no murmurs Abd: soft, nontender, non distended, no shifting dullness to percussion, bowel sounds active Ext: No peripheral edema bilaterally Neuro: A/Ox3, no asterixis Assessment & Plan Assessment & Plan (1) Upper GI bleed: Code(s): K92.2 - Gastrointestinal hemorrhage, unspecified (2) Duodenal ulcer: Code(s): K26.9 - Duodenal ulcer, unspecified as acute or chronic, without hemorrhage or perforation (3) Gastritis: Code(s): K29.70 - Gastritis, unspecified, without bleeding (4) Esophagitis: Code(s): K20.90 - Esophagitis, unspecified without bleeding (5) Anemia: Code(s): D64.9 - Anemia, unspecified (6) Hepatic encephalopathy: Code(s): K76.82 - Hepatic encephalopathy Plan 1. 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 Now s/p TAVR and subsequent EGD/colo without any evidence of active or recent bleeding. Plan: - Repeat blood work in Jun - If improved compared to March, no further occult GIB warranted - However if continues to downtrend will need small bowel eval - Decrease to omeprazole 20mg PO 2. Post transplant HE: Undergoing work up through [facility]. ? persistent vs surgical portosystemic shunt leading to HE. - MRI ordered through [facility] Follow up contingent on blood work as above Orders: Orders Ferritin 2 Months K92.2 - Gastrointestinal hemorrhage, unspecified IRON PROFILE 2 Months K92.2 - Gastrointestinal hemorrhage, unspecified Complete Blood Count no Diff 2 Months K92.2 - Gastrointestinal hemorrhage, unspecified Medications: New omeprazole 20 mg PO DAILY 90 caps 2RF Coding Level of Care Code Est Pt Level 4 (75900) Diagnoses Upper GI bleed K92.2 Duodenal ulcer K26.9 Gastritis K29.70 Esophagitis K20.90 Anemia D64.9 Hepatic encephalopathy K76.82
[2023-04-27 08:48] VITALS: BP 134/65; PULSE 59; BMI 39.2
== END 2023-04-27 09:49 | disposition home or self-care (01) ==
PROVIDERS: Visit Provider Internal Medicine
DX: K26.4 Chronic or unspecified duodenal ulcer with hemorrhage (principal); K29.70 Gastritis, unspecified, without bleeding; K20.90 Esophagitis, unspecified without bleeding; D64.9 Anemia, unspecified; K76.82 Hepatic encephalopathy
CPT/HCPCS: 99214

== ENCOUNTER → 2023-04-27 08:37 | Outpatient (BNVA) | payer OTHER, SELFPAY | PROVIDERS: Visit Provider Internal Medicine ==

== ENCOUNTER 2023-07-13 09:53 | Outpatient (REF) | payer MEDICARE, SELFPAY ==
[2023-07-13 11:14] LABS: Hematocrit 30.2 % (42.0-52.0); Hemoglobin 10.7 g/dl (14.0-18.0); Mean Corpuscular HGB Conc 35.4 g/dl (31.0-36.0); Mean Corpuscular Hemoglobin 34.2 pg (27.0-33.0); Mean Corpuscular Volume 96.5 fL (80.0-98.0); Mean Platelet Volume 10.1 fL (9.4-12.4); Platelet Count 114 X10*3/uL (160-400); Red Blood Count 3.13 X10*6/uL (4.60-5.80); Red Cell Distribution Width 13.6 % (11.0-16.0)
[2023-07-13 11:56] LABS: Iron 88 mcg/dL (45-160); Percent Iron Saturation 48 % (15-50); Total Iron Binding Capacity 184 mcg/dL (228-428); Unsaturated Iron Binding 96 ug/dL
[2023-07-13 12:11] LABS: Ferritin 249 ng/mL (20-250)
== END 2023-07-13 09:54 | disposition home or self-care (01) ==
LOC: HO.LAB 09:53
PROVIDERS: PCP Internal Medicine; Visit Provider Internal Medicine
DX: K92.2 Gastrointestinal hemorrhage, unspecified (principal)
CPT/HCPCS: 36415; 82728; 83540; 85027

== ENCOUNTER 2023-07-26 09:30 | Outpatient (AMB) | payer MEDICARE, SELFPAY ==
[2023-07-26 09:44] VITALS: BP 130/62; PULSE 75; BMI 41.2
--- NOTE | 2023-07-26 09:44 | MHC.OFFVIS ---
Intake Vital Signs 07/26/23 09:44 Height 5 ft 1 in Weight 218 lb 4.122 oz BMI 41.2 BP 130/62 Blood Pressure Location Lt brachial Position Sitting Pulse 75 Intake Visit Reasons: 4 month follow up Intake Note: 4 month follow up Fire Eater Required: No Accompanied by: Spouse Allergies ibuprofen [IBUPROFEN] Allergy (Severe, Verified 07/26/23 09:46) SWELLING peanut [PEANUTS] Allergy (Unknown, Verified 07/26/23 09:46) SWELLING hydromorphone [From Dilaudid] Allergy (Verified 07/26/23 09:46) Vomiting perflutren Allergy (Verified 07/26/23 09:46) Back Pain prednisone Allergy (Verified 07/26/23 09:46) Unknown Medication List - Last Reconciled 07/26/23 by Gabino Palacios MD amlodipine 10 mg PO DAILY apixaban (Eliquis) 5 mg PO BID ascorbic acid (vitamin C) 500 mg PO DAILY atorvastatin 20 mg PO DAILY cholecalciferol (vitamin D3) 25 mcg PO DAILY clonidine HCl 0.05 mg PO DAILY docusate sodium (Colace) 100 mg PO BID ferrous sulfate 325 mg PO DAILY furosemide 40 mg PO DAILY insulin glargine (Lantus Solostar U-100 Insulin) 0 - 30 units subcut BEDTIME lactulose 30 mL orally 3-4 times a day; adjust to achieve 3-4 soft bowel movements daily lisinopril 2.5 mg PO DAILY multivitamin 1 tab PO DAILY omeprazole 20 mg PO DAILY pen needle, diabetic (BD Loretta 2nd Gen Pen Needle) As directed repaglinide 0.5 mg PO TIDAC sennosides (senna) 17.2 mg PO DAILY sitagliptin phosphate (Januvia) 25 mg PO DAILY tacrolimus 0.5 mg PO BEDTIME HPI HPI Comments History of Present Illness Details oBaz returns for follow-up. Due to congestive heart failure, he underwent transcatheter aortic valve replacement. Since last time, he states actually doing pretty good. Shortness of breath significantly improved. He is much more active in the house unable to fix minor things extra. Otherwise, many comorbidities including history of liver transplantation few years ago. [facility] Medical History (Updated 04/27/23 @ 11:02 by Shari Chapin MD) Cirrhosis MSSA bacteremia CKD (chronic kidney disease) stage 3, GFR 30-59 ml/min Staphylococcus aureus bacteremia Duodenal ulcer Anemia Acute diastolic (congestive) heart failure Non-rheumatic aortic stenosis PAF (paroxysmal atrial fibrillation) Osteomyelitis Aortic stenosis Duodenitis Hypertension Hypercholesteremia GERD (gastroesophageal reflux disease) Diabetes Fatty liver Gram-positive bacteremia Surgical History History of esophagogastroduodenoscopy (EGD) Liver transplant recipient S/P TAVR (transcatheter aortic valve replacement) Hx of lymph node excision History of back surgery Hx of colonoscopy Liver transplant recipient Family History Mother Myocardial infarct Social History Household Members: Family Housing: House Are you a primary respiratory care technician to a significant other at home: No Do you presently have visiting nurse or other home services: No Alcohol intake: never Patient Tobacco Use Status: Never used Tobacco Advance Directives Date on File: 05/19/22 service: No Current occupational status: retired Review of Systems Const Denies weakness ENT Denies dizziness Card Denies chest pain, Denies chest pain with activity, Denies syncope, Denies rapid heart rate, Denies pedal edema, Denies edema, Denies leg edema, Denies lightheadedness, Denies palpitations, Denies dyspnea, Denies dyspnea on exertion and Denies orthopnea Resp Denies cough, Denies dyspnea and Denies dyspnea on exertion GI Denies hematochezia and Denies change in stool character Musc Denies abnormal gait, Denies muscle cramps, Denies muscle weakness, Denies numbness, Denies radiating pain into limb and Denies tingling Neuro Denies abnormal gait, Denies dizziness, Denies syncope, Denies numbness, Denies tingling and Denies weakness Endo Denies palpitations Physical Exam Vital Signs: Last Vital Signs Pulse 75 07/26/23 09:44 BP 130/62 07/26/23 09:44 BMI result Body Mass Index 41.2 Const General: comfortable and no acute distress Orientation/consciousness: patient oriented x3 HEENT Other: Unremarkable Head: Yes normal to inspection Neck Neck: Yes normal visual inspection Chest Chest palpation & inspection: normal inspection of the chest Resp Auscultation: clear to auscultation bilaterally Cardio Palpation: normal PMI Heart sounds: S1 normal heart sound present, S2 normal heart sound present, no gallops, Murmur heart sound present systolic I/ and at the right sternal border and no rubs GI Palpation (GI): Soft to palpation Back/Spine/Pelvis Other: unremarkable Skin General skin exam: no rashes or lesions noted Neuro General: patient oriented x3 Extrem Other: 1+ edema General: Yes normal to inspection Psych Mental Status: mental status grossly normal Assessment & Plan Assessment & Plan (1) Status post transcatheter aortic valve replacement (TAVR) using bioprosthesis: Code(s): Z95.3 - Presence of xenogenic heart valve Plan: Normal function on recent echocardiogram. Infective endocarditis prophylaxis per protocol. (2) Chronic heart failure with preserved ejection fraction: Code(s): I50.32 - Chronic diastolic (congestive) heart failure Plan: Stable. No significant volume overload on exam. (3) PAF (paroxysmal atrial fibrillation): Code(s): I48.0 - Paroxysmal atrial fibrillation Plan: Continue Eliquis. Off aspirin. (4) Gastrointestinal bleed: Code(s): K92.2 - Gastrointestinal hemorrhage, unspecified Plan: EGD- stomach and duodenal ulcers. On omeprazole. (5) Liver transplant recipient: Code(s): Z94.4 - Liver transplant status Plan: Continue transplant meds. Plan Discussed with significant other came for appointment. Coding Level of Care Code Est Pt Level 4 (32544) Diagnoses Status post transcatheter aortic valve replacement (TAVR) using bioprosthesis Z95.3 Chronic heart failure with preserved ejection fraction I50.32 PAF (paroxysmal atrial fibrillation) I48.0 Gastrointestinal bleed K92.2 Liver transplant recipient Z94.4
== END 2023-07-26 10:03 | disposition home or self-care (01) ==
PROVIDERS: PCP Internal Medicine; Visit Provider Internal Medicine
DX: Z95.3 Presence of xenogenic heart valve (principal); I50.32 Chronic diastolic (congestive) heart failure; I48.0 Paroxysmal atrial fibrillation; K92.2 Gastrointestinal hemorrhage, unspecified; Z94.4 Liver transplant status
CPT/HCPCS: 99214

== ENCOUNTER → 2023-07-26 09:30 | Outpatient (BNVA) | payer MEDICARE, SELFPAY | PROVIDERS: PCP Internal Medicine; Visit Provider Internal Medicine | DX: I50.32 Chronic diastolic (congestive) heart failure (principal); I48.0 Paroxysmal atrial fibrillation; K92.2 Gastrointestinal hemorrhage, unspecified; Z95.3 Presence of xenogenic heart valve; Z94.4 Liver transplant status | CPT/HCPCS: 99212 ==

== ENCOUNTER 2023-08-25 10:54 | Outpatient (REF) | payer MEDICARE, SELFPAY ==
[2023-08-25 11:22] LABS: MANUAL DIFF FLAG NO
[2023-08-25 11:47] LABS: Basophils Percent Auto 0.6 % (0-2); Eosinophils Absolute Auto 0.1 X10*3/uL (0.0-0.4); Eosinophils Percent Auto 3.6 % (0-4); Hematocrit 30.4 % (42.0-52.0); Hemoglobin 10.3 g/dl (14.0-18.0); Lymphocytes Absolute Auto 1.2 X10*3/uL (1.2-4.9); Mean Corpuscular HGB Conc 33.9 g/dl (31.0-36.0); Mean Corpuscular Hemoglobin 32.5 pg (27.0-33.0); Mean Corpuscular Volume 95.9 fL (80.0-98.0); Mean Platelet Volume 10.1 fL (9.4-12.4); Monocytes Absolute Auto 0.2 X10*3/uL (0.1-1.2); Monocytes Percent Auto 6.6 % (2-11); Neutrophils Absolute Auto 1.8 x10*3/uL (2.0-8.3); Neutrophils Percent Auto 53.2 % (45-73); Platelet Count 105 X10*3/uL (160-400); Red Blood Count 3.17 X10*6/uL (4.60-5.80); Red Cell Distribution Width 13.5 % (11.0-16.0); White Blood Count 3.3 X10*3/uL (4.8-10.8)
[2023-08-25 12:34] LABS: Albumin Level 3.3 g/dL (3.5-5.0); Anion Gap 9 (12-20); Blood Urea Nitrogen 31 mg/dL (9-16); Calcium 8.7 mg/dL (8.4-10.2); Carbon Dioxide 20 mmol/L (22-29); Chloride 111 mmol/L (96-108); Estimated Glomerular Filt Rate 35; Parathyroid Hormone Intact 109.2 pg/mL (8.7-77.1); Phosphorus 3.2 mg/dL (2.7-4.5); Potassium 5.2 mmol/L (3.3-5.1); Sodium 135 mmol/L (135-145)
[2023-08-25 12:49] LABS: Vitamin D 25-OH Total 29.5 ng/mL (>30)
[2023-08-25 13:07] LABS: Appearance Urine Clear; Color Urine Yellow; Glucose Urine UA Negative (Negative); Leukocyte Esterase Urine Negative (Negative); Nitrite Urine Negative (Negative); PH 5.5 (5.0-9.0); Urine Blood Negative (Negative); Urine Ketones Negative (Negative); Urine Protein Negative (Neg-Trace)
[2023-08-25 13:12] LABS: Bacteria Urine None Seen (None Seen); Hyaline Casts Urine 0-2 /LPF (0-2); Squamous Epithelial Cell Urine 0-2 /HPF (0-2); WBC Urine 0-5 /HPF (0-5)
[2023-08-25 14:23] LABS: Creatinine Urine 172.64 mg/dL; Microalbum/Creatinine Ratio Ur 6.3 ug/mg cr (<30); Total Protein Urine Random < 7 mg/dL (<12)
== END 2023-08-25 10:55 | disposition home or self-care (01) ==
LOC: HO.LAB 10:54
PROVIDERS: PCP Internal Medicine; Visit Provider Internal Medicine Nephrology
DX: I12.9 Hypertensive chronic kidney disease with stage 1 through stage 4 chronic kidney disease, or unspecified chronic kidney disease (principal); E11.22 Type 2 diabetes mellitus with diabetic chronic kidney disease; N18.32 Chronic kidney disease, stage 3b; N25.0 Renal osteodystrophy; Z94.4 Liver transplant status
CPT/HCPCS: 36415; 80051; 81001; 82040; 82043; 82306; 82310; 82565; 82570; 83735; 83970; 84100; 84156; 84520; 85025

== ENCOUNTER → 2023-12-06 10:49 | Outpatient (REF) | payer MEDICARE, SELFPAY ==
--- NOTE | 2023-12-06 10:52 | CA_ITS ---
Transthoracic Echocardiogram Patient (Last, First, Middle): Boaz Padilla Kiki Gender: Male Date of : 1950 Age: 73 Procedure Date: 12/06/2023 Procedure Type: Transthoracic Echocardiogram Location: OP Height: 154. cm Weight: 95.26 kg BSA: 1.92 m2 Heart Rate: 60 bpm BP: 150 / 60 mmHg Hoop Bending Machine Operator: JULISA Benjamin MD: Leobardo Stroud MD Spinner Box: Loi Ortiz MD Symptoms: S/P TRANSAORTIC VALVE REPLACEMENT. Study Quality: Poor ECG Rhythm: Sinus Conclusions: - 1. Technically limited study despite use of contrast agent 2. Normal LV ejection fraction of 60 65% with elevated filling pressures 3. Mildly dilated left atrium 4. Normally function bioprosthetic aortic valve with mean gradient of 12 mmHg Findings Left Ventricle Normal left ventricular size, thickness, and systolic function. The visually estimated ejection fraction is between 60-65%. Spectral Doppler is indicative of an impaired relaxation filling pattern. Elevated filling pressures. E/E prime ratio is >15, consistent with elevated filling pressures. Definity not used due to previous reaction. Peak GLS is -15.3%, mildly reduced. Right Ventricle The right ventricle was not well visualized. Atria The left atrium is mildly dilated. Interatrial shunt cannot be excluded. The right atrium was not well visualized. Aortic Valve A bioprosthetic aortic valve is present. The prosthetic aortic valve appears to be functioning normally. The mean gradient is 12 mmHg. There is no aortic valve regurgitation. the valve is well seated without abnormal rocking motion Mitral Valve The mitral valve was not well visualized. There is mild anterior and posterior mitral leaflet thickening. There is mild mitral annular calcification. There is trace mitral valve regurgitation. There is no mitral valve stenosis. Pulmonic Valve The pulmonic valve was not well visualized. Tricuspid Valve The tricuspid valve was not well visualized. Tricuspid regurgitation envelope is inadequate for calculation of right ventricular systolic pressure. Normal right atrial pressure. Great Vessels The aorta was not well visualized. The pulmonary artery was not well visualized. Venous The inferior vena cava is normal in size and collapses greater than 50% with inspiration. Pericardium/Pleural The pericardium was not well visualized. Prior Study Comparison No significant change compared to prior study dated: 02/15/2023. Measurements 2D Linear Measurements IVSd: 1.02 0.6-0.9/0.6-1.0 cm LVIDd: 3.99 3.9-5.3/4.2-5.9 cm LVIDd Index: 2.08 2.4-3.2/2.2-3.1 cm/m2 LVIDs: 2.08 2.0-3.6 cm LVPWd: 1.03 0.7-1.1 cm LA Diam: 3.50 2.7-3.8/3.0-4.0 cm LAIDs Index: 1.82 1.5-2.3 cm/m2 LV Mass: 163.10 67-162/88-224 g LV Mass Index: 84.95 43-95/49-115 g/m2 LVOT Diam: 2.00 3.0+(-)1.3 cm Mitral Valve MV Pk E: 1.02 MV PK A: 1.09 MV Decel Time: 332.00 E/A: 0.90 E'Lateral: 5.77 E'Medial: 6.09 E/E' Med: 16.70 E/E' Lat: 17.70 PHT: 97.00 MVA PHT: 2.27 Decel [place]: 3.09 Aortic Valve AoV Pk [place]: 2.38 AoV Mn [place]: 1.59 AoV VTI: 0.51 AoV Pk Grad: 23.00 Aov Mn Grad: 12.00 THOMAS Cont.VTI: 2.02 LVOT LVOT Pk [place]: 1.37 LVOT Mn [place]: 0.94 LVOT VTI: 0.33 LVOT Pk Grad: 8.00 LVOT Mn Grad: 4.00 LVOT Diam: 2.00 LVOT Area: 3.14 Diastolic Function MV Pk E: 1.02 MV Pk A: 1.09 E/A: 0.90 E'Medial: 6.09 E/E' Med: 16.70 E' Laterial: 5.77 E/E' Lat: 17.70 Right Ventricle TAPSE (mm): 27.00 TVS' [place]: 12.60 Tricuspid Valve RA Press: 3.00 Great Vessels Aorta Sinus of Valsalva: 3.50 2.0-3.5 cm Ao Asc: 3.00 2.1-3.4 cm Pulmonary Valve PV Pk [place]: 1.25 Peak PV Grad: 6.00 Updated in Other Vendor System with Status of Final Loi Ortiz MD electronically signed on 12/06/2023 4:44:00 PM with status of Final
== END ==
LOC: HO.CARD 10:49
PROVIDERS: PCP Internal Medicine; Visit Provider Internal Medicine Interventional Cardiology
DX: Z95.4 Presence of other heart-valve replacement (principal)
CPT/HCPCS: 93306; 93356

== ENCOUNTER → 2023-12-06 10:52 | Outpatient (BNV) | payer MEDICARE, SELFPAY | PROVIDERS: PCP Internal Medicine; Visit Provider Internal Medicine Cardiovascular Disease | DX: I51.7 Cardiomegaly (principal); I34.81 Nonrheumatic mitral (valve) annulus calcification | CPT/HCPCS: 93306; 93356 ==

== ENCOUNTER 2024-01-31 09:04 | Outpatient (AMB) | payer MEDICARE, SELFPAY ==
--- NOTE | 2024-01-31 09:05 | MHC.OFFVIS ---
Vital Signs 01/31/24 09:06 Height 5 ft 1 in Weight 227 lb 1.218 oz BMI 42.9 BP 120/58 L Blood Pressure Location Lt brachial Position Sitting Pulse 89 Pulse Source Pulse Oximeter Pulse Oximetry (%) 97 Oxygen Delivery Method Room Air Intake Visit Reasons: 6 mth f/up Allergies ibuprofen [IBUPROFEN] Allergy (Severe, Verified 07/26/23 09:46) SWELLING peanut [PEANUTS] Allergy (Unknown, Verified 07/26/23 09:46) SWELLING hydromorphone [From Dilaudid] Allergy (Verified 07/26/23 09:46) Vomiting perflutren Allergy (Verified 07/26/23 09:46) Back Pain prednisone Allergy (Verified 07/26/23 09:46) Unknown Medication List - Last Reconciled 01/31/24 by Gabino Palacios MD amlodipine 10 mg PO DAILY apixaban (Eliquis) 5 mg PO BID ascorbic acid (vitamin C) 500 mg PO DAILY atorvastatin 20 mg PO DAILY cholecalciferol (vitamin D3) 25 mcg PO DAILY clonidine HCl 0.05 mg PO DAILY docusate sodium (Colace) 100 mg PO BID ferrous sulfate 325 mg PO DAILY furosemide 40 mg PO DAILY insulin glargine (Lantus Solostar U-100 Insulin) 0 - 30 units subcut BEDTIME lactulose 30 mL orally 3-4 times a day; adjust to achieve 3-4 soft bowel movements daily lisinopril 2.5 mg PO DAILY multivitamin 1 tab PO DAILY omeprazole 20 mg PO DAILY pen needle, diabetic (BD Loretta 2nd Gen Pen Needle) As directed repaglinide 0.5 mg PO TIDAC sennosides (senna) 17.2 mg PO DAILY sitagliptin phosphate (Januvia) 25 mg PO DAILY tacrolimus 0.5 mg PO BEDTIME HPI Comments Details: Boaz returns for follow-up. Due to congestive heart failure, he underwent transcatheter aortic valve replacement. Overall, doing good. No specific cardiac complaints. [facility] Medical History (Updated 04/27/23 @ 11:02 by Shari Chapin MD) Cirrhosis MSSA bacteremia CKD (chronic kidney disease) stage 3, GFR 30-59 ml/min Staphylococcus aureus bacteremia Duodenal ulcer Anemia Acute diastolic (congestive) heart failure Non-rheumatic aortic stenosis PAF (paroxysmal atrial fibrillation) Osteomyelitis Aortic stenosis Duodenitis Hypertension Hypercholesteremia GERD (gastroesophageal reflux disease) Diabetes Fatty liver Gram-positive bacteremia Surgical History History of esophagogastroduodenoscopy (EGD) Liver transplant recipient S/P TAVR (transcatheter aortic valve replacement) Hx of lymph node excision History of back surgery Hx of colonoscopy Liver transplant recipient Family History Mother Myocardial infarct Social History Household Members: Family Housing: House Are you a primary healthcare advisory services manager to a significant other at home: No Do you presently have visiting nurse or other home services: No Alcohol intake: never Patient Tobacco Use Status: Never used Tobacco Advance Directives Date on File: 05/19/22 service: No Current occupational status: retired Review of Systems Const Denies weakness ENT Denies dizziness Card Denies chest pain, Denies chest pain with activity, Denies syncope, Denies rapid heart rate, Denies pedal edema, Denies edema, Denies leg edema, Denies lightheadedness, Denies palpitations, Denies dyspnea, Denies dyspnea on exertion and Denies orthopnea Resp Denies cough, Denies dyspnea and Denies dyspnea on exertion GI Denies hematochezia and Denies change in stool character Musc Denies abnormal gait, Denies muscle cramps, Denies muscle weakness, Denies numbness, Denies radiating pain into limb and Denies tingling Neuro Denies abnormal gait, Denies dizziness, Denies syncope, Denies numbness, Denies tingling and Denies weakness Endo Denies palpitations Physical Exam Vital Signs: Last Vital Signs Pulse 89 01/31/24 09:06 BP 120/58 L 01/31/24 09:06 Pulse Ox 97 01/31/24 09:06 Oxygen Delivery Method Room Air 01/31/24 09:06 BMI result Body Mass Index 42.9 Const General: comfortable and no acute distress Orientation/consciousness: patient oriented x3 HEENT Other: Unremarkable Head: Yes normal to inspection Neck Neck: Yes normal visual inspection Chest Chest palpation & inspection: normal inspection of the chest Resp Auscultation: clear to auscultation bilaterally Cardio Palpation: normal PMI Heart sounds: S1 normal heart sound present, S2 normal heart sound present, no gallops, Murmur heart sound present systolic I/ and at the right sternal border and no rubs GI Palpation (GI): Soft to palpation Back/Spine/Pelvis Other: unremarkable Skin General skin exam: no rashes or lesions noted Neuro General: patient oriented x3 Extrem Other: 1+ edema General: Yes normal to inspection Psych Mental Status: mental status grossly normal Assessment & Plan Assessment & Plan (1) Status post transcatheter aortic valve replacement (TAVR) using bioprosthesis: Code(s): Z95.3 - Presence of xenogenic heart valve Category: Surgical Plan: Normal function on recent echocardiogram. Infective endocarditis prophylaxis per protocol. (2) Chronic heart failure with preserved ejection fraction: Code(s): I50.32 - Chronic diastolic (congestive) heart failure Category: Medical Plan: Stable. No significant volume overload on exam. (3) PAF (paroxysmal atrial fibrillation): Code(s): I48.0 - Paroxysmal atrial fibrillation Category: Medical Plan: Continue Eliquis. Off aspirin. (4) Gastrointestinal bleed: Code(s): K92.2 - Gastrointestinal hemorrhage, unspecified Category: Medical Plan: EGD- stomach and duodenal ulcers. On omeprazole. (5) Liver transplant recipient: Code(s): Z94.4 - Liver transplant status Category: Surgical Plan: Continue transplant meds. Plan Discussed with significant other. Coding Level of Care Code Est Pt Level 4 (72727) Diagnoses Status post transcatheter aortic valve replacement (TAVR) using bioprosthesis Z95.3 Chronic heart failure with preserved ejection fraction I50.32 PAF (paroxysmal atrial fibrillation) I48.0 Gastrointestinal bleed K92.2 Liver transplant recipient Z94.4
[2024-01-31 09:06] VITALS: BP 120/58; PULSE 89; O2SAT 97; BMI 42.9
== END 2024-01-31 09:27 | disposition home or self-care (01) ==
PROVIDERS: PCP Internal Medicine; Visit Provider Internal Medicine
DX: Z95.3 Presence of xenogenic heart valve (principal); I50.32 Chronic diastolic (congestive) heart failure; I48.0 Paroxysmal atrial fibrillation; K92.2 Gastrointestinal hemorrhage, unspecified; Z94.4 Liver transplant status
CPT/HCPCS: 99214

== ENCOUNTER → 2024-01-31 09:04 | Outpatient (BNVA) | payer MEDICARE, SELFPAY | PROVIDERS: PCP Internal Medicine; Visit Provider Internal Medicine | DX: I11.0 Hypertensive heart disease with heart failure (principal); I50.32 Chronic diastolic (congestive) heart failure; I48.0 Paroxysmal atrial fibrillation; K92.2 Gastrointestinal hemorrhage, unspecified; Z94.4 Liver transplant status; Z95.4 Presence of other heart-valve replacement | CPT/HCPCS: 99212 ==

== ENCOUNTER 2024-03-16 10:43 | Outpatient (AMB) | payer MEDICARE, SELFPAY ==
--- NOTE | 2024-03-16 10:50 | A.OFFVIS_ITS ---
Vital Signs 03/16/24 10:52 Height 5 ft 1 in Weight 232 lb 6 oz BMI 43.9 BP 160/68 H Blood Pressure Location Rt brachial Position Sitting Respiration 17 Pulse 79 Pulse Source Pulse Oximeter Pulse Oximetry (%) 99 Oxygen Delivery Method Room Air Intake Visit Reasons: ENP-hx of hepatic encephalopathy - LVM w/add Intake Note: Pt presents to the office for new pt evaluation for h/o hepatic encephalopathy. Window Tinter Required: No Allergies ibuprofen [IBUPROFEN] Allergy (Severe, Verified 03/16/24 10:51) SWELLING peanut [PEANUTS] Allergy (Unknown, Verified 03/16/24 10:51) SWELLING hydromorphone [From Dilaudid] Allergy (Verified 03/16/24 10:51) Vomiting perflutren Allergy (Verified 03/16/24 10:51) Back Pain prednisone Allergy (Verified 03/16/24 10:51) Unknown HPI Comments Details: 73y/o male comes for neurological evaluation. He has h/o liver failure , hepatic encephelopathy and liver transplant in 2017 . he has been doing well but he had a few episodes of increased ammonia related to leak from his shunt . He usually respond to lactulose. His last episode was 1 year ago.During these episodes he is confused , slow, tremors etc He is here to see if he has any residual effects from hyperammonemia. 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 He denies snoring, he has some arousals at night. He takes daytime naps . [facility] Medical History Cirrhosis MSSA bacteremia CKD (chronic kidney disease) stage 3, GFR 30-59 ml/min Staphylococcus aureus bacteremia Duodenal ulcer Anemia Acute diastolic (congestive) heart failure Non-rheumatic aortic stenosis PAF (paroxysmal atrial fibrillation) Osteomyelitis Aortic stenosis Duodenitis Hypertension Hypercholesteremia GERD (gastroesophageal reflux disease) Diabetes Fatty liver Gram-positive bacteremia Surgical History History of esophagogastroduodenoscopy (EGD) Liver transplant recipient S/P TAVR (transcatheter aortic valve replacement) Hx of lymph node excision History of back surgery Hx of colonoscopy Liver transplant recipient Family History Mother Myocardial infarct Social History Household Members: Family Housing: House Are you a primary landcare officer to a significant other at home: No Do you presently have visiting nurse or other home services: No Alcohol intake: never Patient Tobacco Use Status: Never used Tobacco Advance Directives Date on File: 05/19/22 service: No Current occupational status: retired Physical Exam Vital Signs: Last Vital Signs Pulse 79 03/16/24 10:52 Resp 17 03/16/24 10:52 BP 160/68 H 03/16/24 10:52 Pulse Ox 99 03/16/24 10:52 Oxygen Delivery Method Room Air 03/16/24 10:52 BMI result Body Mass Index 43.9 Const Other: MOCA 28/ General: cooperative, healthy appearing and comfortable Nutritional Appearance: obese Orientation/consciousness: patient oriented x3 Limitations: no limitations Eyes Pupils: Equal, round and reactive pupils present Neuro General: patient oriented x3, tone normal, moves all extremities and no focal motor deficits Cranial nerves: Yes Facial sensation intact/muscles of mastication intact, Yes Equal, round and reactive pupils present, Yes Bilaterally intact EOM present, Yes Nystagmus not present, Yes Normal facial strength present, Yes Midline tongue present, Yes Symmetric palate elevation present and Yes Ability to bilaterally elevate shoulders present Cognition (Neuro): normal cognition Gait exam (Neuro): Antalgic gait present Motor exam (neuro): 5/5 motor strength present throughout and Normal motor muscle tone present throughout Deep tendon reflexes (DTR's): Right triceps reflex intensity grade: 1+, Left triceps reflex intensity grade: 1+, Rt Biceps (C5, C6): 1+, Left biceps reflex intensity grade: 1+, Right brachioradialis reflex intensity grade: 1+, Left brachioradialis reflex intensity grade: 1+, Right patellar reflex intensity grade: 1+ and Left patellar reflex intensity grade: 1+ Coordination: [id number] test normal Assessment & Plan Assessment & Plan (1) Hepatic encephalopathy: Comment: h/o hepatic encephalopathy with delirium relate dto hyperammonemia Code(s): K76.82 - Hepatic encephalopathy Category: Medical (2) Hypersomnia: Code(s): G47.10 - Hypersomnia, unspecified Category: Medical Plan His cognitive exam was normal MOCA I will evaluate him with home sleep tets to r/o sleep apnea EEG Monitor ammonia levels continue lactulose Orders: Orders RT home sleep study Today G47.10 - Hypersomnia, unspecified EEG electroencephalogram Today G93.40 - Encephalopathy, unspecified Comprehensive Met. Panel Today G47.10 - Hypersomnia, unspecified, N18.4 - Chronic kidney disease, stage 4 (severe) Vitamin B12 and Folate Today G47.10 - Hypersomnia, unspecified, N18.4 - Chronic kidney disease, stage 4 (severe) TSH reflex Free T4 Today G47.10 - Hypersomnia, unspecified, N18.4 - Chronic kidney disease, stage 4 (severe) Vitamin D 25-OH (D2 and D3) Today G47.10 - Hypersomnia, unspecified, N18.4 - Chronic kidney disease, stage 4 (severe) Erythrocyte Sedimentation Rate Today G47.10 - Hypersomnia, unspecified, N18.4 - Chronic kidney disease, stage 4 (severe) Complete Blood Count Auto Diff Today G47.10 - Hypersomnia, unspecified, N18.4 - Chronic kidney disease, stage 4 (severe) Coding Level of Care Code New Pt Level 4 (94550) Complex EM visit Add On G2211 Diagnoses Hepatic encephalopathy K76.82 Hypersomnia G47.10
[2024-03-16 10:52] VITALS: BP 160/68; PULSE 79; RESP 17; O2SAT 99; BMI 43.9
== END 2024-03-16 11:38 | disposition home or self-care (01) ==
PROVIDERS: PCP Internal Medicine; Visit Provider Psychiatry & Neurology Neurology
DX: K76.82 Hepatic encephalopathy (principal); G47.10 Hypersomnia, unspecified
CPT/HCPCS: 99204; G2211

== ENCOUNTER → 2024-03-16 10:43 | Outpatient (BNVA) | payer MEDICARE, SELFPAY | PROVIDERS: PCP Internal Medicine; Visit Provider Psychiatry & Neurology Neurology | DX: K76.82 Hepatic encephalopathy (principal); G47.10 Hypersomnia, unspecified; Z94.4 Liver transplant status | CPT/HCPCS: 99202 ==

== ENCOUNTER 2024-04-03 09:33 | Outpatient (REF) | payer MEDICARE, SELFPAY ==
[2024-04-03 09:56] LABS: MANUAL DIFF FLAG NO
[2024-04-03 10:58] LABS: Appearance Urine Clear; Color Urine Yellow; Glucose Urine UA Negative (Negative); Leukocyte Esterase Urine Trace (Negative); Nitrite Urine Negative (Negative); Specific Gravity - Urine 1.015 (1.005-1.025); UMIC TRIGGER UA YES; Urine Blood Negative (Negative); Urine Ketones Negative (Negative); Urine Protein Negative (Neg-Trace)
[2024-04-03 11:01] LABS: Bacteria Urine None Seen (None Seen); RBC Urine 0-2 /HPF (0-2); Squamous Epithelial Cell Urine 0-2 /HPF (0-2); WBC Urine 0-5 /HPF (0-5)
[2024-04-03 11:06] LABS: Basophils Percent Auto 0.6 % (0-2); Eosinophils Absolute Auto 0.1 X10*3/uL (0.0-0.4); Eosinophils Percent Auto 2.2 % (0-4); Hematocrit 31.1 % (42.0-52.0); Hemoglobin 10.8 g/dl (14.0-18.0); Imm Gran Abs Auto 0.01 X10*3/uL (0.00-0.03); Imm Gran Pct Auto 0.3 % (0.0-0.4); Lymphocytes Absolute Auto 1.4 X10*3/uL (1.2-4.9); Lymphocytes Percent Auto 42.8 % (20-40); Mean Corpuscular HGB Conc 34.7 g/dl (31.0-36.0); Mean Corpuscular Hemoglobin 33.6 pg (27.0-33.0); Mean Corpuscular Volume 96.9 fL (80.0-98.0); Mean Platelet Volume 9.9 fL (9.4-12.4); Monocytes Absolute Auto 0.3 X10*3/uL (0.1-1.2); Monocytes Percent Auto 8.4 % (2-11); Neutrophils Absolute Auto 1.5 x10*3/uL (2.0-8.3); Neutrophils Percent Auto 45.7 % (45-73); Platelet Count 121 X10*3/uL (160-400); Red Blood Count 3.21 X10*6/uL (4.60-5.80); Red Cell Distribution Width 13.6 % (11.0-16.0); White Blood Count 3.2 X10*3/uL (4.8-10.8)
[2024-04-03 11:35] LABS: Albumin Level 3.6 g/dL (3.5-5.0); Anion Gap 12 (12-20); Blood Urea Nitrogen 28 mg/dL (9-16); Calcium 9.1 mg/dL (8.4-10.2); Carbon Dioxide 20 mmol/L (22-29); Chloride 113 mmol/L (96-108); Estimated Glomerular Filt Rate 33; Magnesium 2.1 mg/dL (1.6-2.6); Phosphorus 3.2 mg/dL (2.7-4.5); Potassium 4.7 mmol/L (3.3-5.1); Sodium 140 mmol/L (135-145)
[2024-04-03 11:36] LABS: Parathyroid Hormone Intact 120.8 pg/mL (8.7-77.1)
[2024-04-03 11:37] LABS: Creatinine Urine 156.25 mg/dL; Total Protein Urine Random < 7 mg/dL (<12)
[2024-04-03 11:52] LABS: Vitamin D 25-OH Total 27.2 ng/mL (>30)
== END 2024-04-03 09:34 | disposition home or self-care (01) ==
LOC: HO.LAB 09:33
PROVIDERS: Absent Provider Psychiatry & Neurology Neurology; Visit Provider Internal Medicine Nephrology
DX: E11.22 Type 2 diabetes mellitus with diabetic chronic kidney disease (principal); N25.0 Renal osteodystrophy; N18.32 Chronic kidney disease, stage 3b
CPT/HCPCS: 36415; 80051; 81001; 82040; 82043; 82306; 82310; 82565; 82570; 83735; 83970; 84100; 84156; 84520; 85025

== ENCOUNTER → 2024-05-03 10:56 | Outpatient (REF) | payer MEDICARE, SELFPAY | LOC: HO.SL 10:56 | PROVIDERS: Visit Provider Psychiatry & Neurology Neurology | DX: G47.33 Obstructive sleep apnea (adult) (pediatric) (principal); G47.10 Hypersomnia, unspecified | CPT/HCPCS: 95806 ==

== ENCOUNTER → 2024-05-03 11:08 | Outpatient (BNV) | payer MEDICARE, SELFPAY | PROVIDERS: Visit Provider Psychiatry & Neurology Neurology | DX: G47.33 Obstructive sleep apnea (adult) (pediatric) (principal) | CPT/HCPCS: 95806 ==

== ENCOUNTER 2024-08-07 08:43 | Outpatient (AMB) | payer MEDICARE, SELFPAY ==
[2024-08-07 08:45] VITALS: BP 134/64; PULSE 72; BMI 43.9
--- NOTE | 2024-08-07 08:45 | MHC.OFFVIS ---
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: No Accompanied by: Spouse Allergies ibuprofen [IBUPROFEN] Allergy (Severe, Verified 03/16/24 10:51) SWELLING peanut [PEANUTS] Allergy (Unknown, Verified 03/16/24 10:51) SWELLING hydromorphone [From Dilaudid] Allergy (Verified 03/16/24 10:51) Vomiting perflutren Allergy (Verified 03/16/24 10:51) Back Pain prednisone Allergy (Verified 03/16/24 10:51) Unknown Medication List - Last Reconciled 08/07/24 by Gabino Palacios MD amlodipine 10 mg PO DAILY apixaban (Eliquis) 5 mg PO BID 90 days ascorbic acid (vitamin C) 500 mg PO DAILY atorvastatin 20 mg PO DAILY cholecalciferol (vitamin D3) 25 mcg PO DAILY furosemide 40 mg PO DAILY insulin glargine (Basaglar KwikPen U-100 Insulin) 10 units subcut QPM lactulose 30 mL orally 3-4 times a day; adjust to achieve 3-4 soft bowel movements daily lisinopril 2.5 mg PO DAILY multivitamin 1 tab PO DAILY omeprazole 20 mg PO DAILY pen needle, diabetic (BD Loretta 2nd Gen Pen Needle) As directed sennosides (senna) 17.2 mg PO DAILY tacrolimus 0.5 mg PO BEDTIME tirzepatide (Mounjaro) 5 mg subcut QWEEK HPI Comments Details: Boaz returns for follow-up. Due to congestive heart failure, he underwent transcatheter aortic valve replacement. He has some exertional shortness of breath but otherwise doing fine. Leg swelling is just about the same as before. No other complaints overall. [facility] Medical History (Updated 03/16/24 @ 12:40 by Smaina Sam MD) Hypersomnia Cirrhosis MSSA bacteremia CKD (chronic kidney disease) stage 3, GFR 30-59 ml/min Staphylococcus aureus bacteremia Duodenal ulcer Anemia Acute diastolic (congestive) heart failure Non-rheumatic aortic stenosis PAF (paroxysmal atrial fibrillation) Osteomyelitis Aortic stenosis Duodenitis Hypertension Hypercholesteremia GERD (gastroesophageal reflux disease) Diabetes Fatty liver Gram-positive bacteremia Surgical History History of esophagogastroduodenoscopy (EGD) Liver transplant recipient S/P TAVR (transcatheter aortic valve replacement) Hx of lymph node excision History of back surgery Hx of colonoscopy Liver transplant recipient Family History Mother Myocardial infarct Social History Household Members: Family Housing: House Are you a primary career based intervention coordinator to a significant other at home: No Do you presently have visiting nurse or other home services: No Alcohol intake: never Patient Tobacco Use Status: Never used Tobacco Advance Directives Date on File: 05/19/22 service: No Current occupational status: retired Review of Systems Const Denies chills, Denies fatigue, Denies fever(s), Denies weight gain and Denies weight loss ENT Denies dizziness Card Denies chest pain, Denies leg edema, Denies lightheadedness, Denies palpitations, Denies dyspnea on exertion, Denies orthopnea and Denies other Resp Denies cough and Denies dyspnea on exertion GI Denies hematochezia and Denies change in stool character Musc Denies abnormal gait, Denies muscle weakness, Denies numbness, Denies radiating pain into limb and Denies tingling Neuro Denies abnormal gait, Denies dizziness, Denies numbness and Denies tingling Endo Denies fatigue and Denies palpitations Physical Exam Vital Signs: Last Vital Signs Pulse 72 08/07/24 08:45 BP 134/64 08/07/24 08:45 BMI result Body Mass Index 43.9 Const General: comfortable and no acute distress Orientation/consciousness: patient oriented x3 HEENT Other: Unremarkable Head: Yes normal to inspection Neck Neck: Yes normal visual inspection Chest Chest palpation & inspection: normal inspection of the chest Resp Auscultation: clear to auscultation bilaterally Cardio Palpation: normal PMI Heart sounds: S1 normal heart sound present, S2 normal heart sound present, no gallops, Murmur heart sound present systolic II/ and at the right sternal border and no rubs GI Palpation (GI): Soft to palpation Back/Spine/Pelvis Other: unremarkable Skin General skin exam: no rashes or lesions noted Neuro General: patient oriented x3 Extrem Other: 2+ swelling B/L General: Yes normal to inspection Psych Mental Status: mental status grossly normal Office Procedures EKG Details: EKG with underlying sinus rhythm at 72/Min; OR prolongation to 212 millisecond; inferior as well as anterolateral downsloping STs with T inversions slightly more prominent in the inferior leads as compared to the last EKG. However, do not think there is any significant change. [id number], Complete Assessment & Plan Assessment & Plan (1) Status post transcatheter aortic valve replacement (TAVR) using bioprosthesis: Code(s): Z95.3 - Presence of xenogenic heart valve Category: Surgical Plan: Normal function on last echocardiogram. Infective endocarditis prophylaxis per protocol. (2) Chronic heart failure with preserved ejection fraction: Code(s): I50.32 - Chronic diastolic (congestive) heart failure Category: Medical Plan: On exam, there is some volume overload. However, he also has renal insufficiency and hence would have Nephrology deal with diuretic dosing. No changes made today. (3) PAF (paroxysmal atrial fibrillation): Code(s): I48.0 - Paroxysmal atrial fibrillation Category: Medical Plan: Continue Eliquis. Off aspirin. (4) Gastrointestinal bleed: Code(s): K92.2 - Gastrointestinal hemorrhage, unspecified Category: Medical Plan: EGD- stomach and duodenal ulcers. On omeprazole. (5) Liver transplant recipient: Code(s): Z94.4 - Liver transplant status Category: Surgical Plan: Continue transplant meds. Plan Discussed with significant other. Orders: Orders CA echo transthoracic complete 6 Months Z95.3 - Presence of xenogenic heart valve Coding Level of Care Code Est Pt Level 4 (72730) Diagnoses Status post transcatheter aortic valve replacement (TAVR) using bioprosthesis Z95.3 Chronic heart failure with preserved ejection fraction I50.32 PAF (paroxysmal atrial fibrillation) I48.0 Gastrointestinal bleed K92.2 Liver transplant recipient Z94.4 CPT Codes EKG - CPT: 88569-[id number], Complete ([id number])
== END 2024-08-07 09:08 | disposition home or self-care (01) ==
PROVIDERS: PCP Internal Medicine; Visit Provider Internal Medicine
DX: Z95.3 Presence of xenogenic heart valve (principal); I50.32 Chronic diastolic (congestive) heart failure; I48.0 Paroxysmal atrial fibrillation; K92.2 Gastrointestinal hemorrhage, unspecified; Z94.4 Liver transplant status
CPT/HCPCS: 93010; 99214

== ENCOUNTER → 2024-08-07 08:43 | Outpatient (BNVA) | payer MEDICARE, SELFPAY | PROVIDERS: PCP Internal Medicine; Visit Provider Internal Medicine | DX: I50.32 Chronic diastolic (congestive) heart failure (principal); I48.0 Paroxysmal atrial fibrillation; K92.2 Gastrointestinal hemorrhage, unspecified; Z95.3 Presence of xenogenic heart valve; Z94.4 Liver transplant status | CPT/HCPCS: 93005; 99212 ==

== ENCOUNTER 2024-08-28 14:44 | Outpatient (AMB) | payer MEDICARE, SELFPAY ==
--- NOTE | 2024-08-28 14:46 | MHC.OFFVIS ---
Vital Signs 08/28/24 14:51 Height 5 ft 1 in Weight 232 lb BMI 43.8 Intake Visit Reasons: 6 MONTH f/u Intake Note: patient presents for 6 month follow up Allergies ibuprofen [IBUPROFEN] Allergy (Severe, Verified 08/28/24 14:51) SWELLING peanut [PEANUTS] Allergy (Unknown, Verified 08/28/24 14:51) SWELLING hydromorphone [From Dilaudid] Allergy (Verified 08/28/24 14:51) Vomiting perflutren Allergy (Verified 08/28/24 14:51) Back Pain prednisone Allergy (Verified 08/28/24 14:51) Unknown HPI Comments Details: 74y/o male comes for follow up. Home sleep test 04/2024 AHI 7 O2 cachorro 78% he was started on AutoPAP and is compliant .He is sleeping better and longer with CPAP. His daytime sleepiness is better. He does not take regular daytime naps. His compliance is 100 % with residual AHI was 1 . He has h/o liver failure , hepatic encephelopathy and liver transplant in 2017 . he has been doing well but he had a few episodes of increased ammonia related to leak from his shunt . He usually respond to lactulose. His last episode was 1 year ago.During these episodes he is confused , slow, tremors etc He is here to see if he has any residual effects from hyperammonemia. 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 [facility] Medical History (Updated 08/28/24 @ 15:19 by Samina Sam MD) Obstructive sleep apnea hypopnea, severe Hypersomnia Cirrhosis MSSA bacteremia CKD (chronic kidney disease) stage 3, GFR 30-59 ml/min Staphylococcus aureus bacteremia Duodenal ulcer Anemia Acute diastolic (congestive) heart failure Non-rheumatic aortic stenosis PAF (paroxysmal atrial fibrillation) Osteomyelitis Aortic stenosis Duodenitis Hypertension Hypercholesteremia GERD (gastroesophageal reflux disease) Diabetes Fatty liver Gram-positive bacteremia Surgical History History of esophagogastroduodenoscopy (EGD) Liver transplant recipient S/P TAVR (transcatheter aortic valve replacement) Hx of lymph node excision History of back surgery Hx of colonoscopy Liver transplant recipient Family History Mother Myocardial infarct Social History Household Members: Family Housing: House Are you a primary in home caregiver to a significant other at home: No Do you presently have visiting nurse or other home services: No Alcohol intake: never Patient Tobacco Use Status: Never used Tobacco Advance Directives Date on File: 05/19/22 service: No Current occupational status: retired Physical Exam Vital Signs: BMI result Body Mass Index 43.8 Const Other: MOCA 28/30 General: cooperative, healthy appearing and comfortable Nutritional Appearance: obese Orientation/consciousness: patient oriented x3 Limitations: no limitations Eyes Pupils: Equal, round and reactive pupils present Neuro General: patient oriented x3, tone normal, moves all extremities and no focal motor deficits Cranial nerves: Yes Facial sensation intact/muscles of mastication intact, Yes Equal, round and reactive pupils present, Yes Bilaterally intact EOM present, Yes Nystagmus not present, Yes Normal facial strength present, Yes Midline tongue present, Yes Symmetric palate elevation present and Yes Ability to bilaterally elevate shoulders present Cognition (Neuro): normal cognition Gait exam (Neuro): Antalgic gait present Motor exam (neuro): 5/5 motor strength present throughout and Normal motor muscle tone present throughout Coordination: [id number] test normal Assessment & Plan Assessment & Plan (1) Obstructive sleep apnea hypopnea, severe: Code(s): G47.33 - Obstructive sleep apnea (adult) (pediatric) Category: Medical (2) Hepatic encephalopathy: Comment: h/o hepatic encephalopathy with delirium relate dto hyperammonemia Code(s): K76.82 - Hepatic encephalopathy Category: Medical (3) Hypersomnia: Code(s): G47.10 - Hypersomnia, unspecified Category: Medical Plan His cognitive exam was normal MOCA 28/30 Continue CPAP 5-20 cm of water . patient is 100 % compliant and his night time sleep and daytime symptoms have improved significnatly. EEG - could not tolerate F/u with hepatology Coding Level of Care Code Est Pt Level 4 (77522) Complex EM visit Add On G2211 Diagnoses Obstructive sleep apnea hypopnea, severe G47.33 Hepatic encephalopathy K76.82 Hypersomnia G47.10
[2024-08-28 14:51] VITALS: BMI 43.8
== END 2024-08-28 15:24 | disposition home or self-care (01) ==
PROVIDERS: PCP Internal Medicine; Visit Provider Psychiatry & Neurology Neurology
DX: G47.33 Obstructive sleep apnea (adult) (pediatric) (principal); K76.82 Hepatic encephalopathy; G47.10 Hypersomnia, unspecified
CPT/HCPCS: 99214; G2211

== ENCOUNTER → 2024-08-28 14:44 | Outpatient (BNVA) | payer MEDICARE, SELFPAY | PROVIDERS: PCP Internal Medicine; Visit Provider Psychiatry & Neurology Neurology | DX: G47.33 Obstructive sleep apnea (adult) (pediatric) (principal); K76.82 Hepatic encephalopathy; G47.10 Hypersomnia, unspecified; Z99.89 Dependence on other enabling machines and devices | CPT/HCPCS: 99212 ==

== ENCOUNTER 2024-12-19 10:21 | Outpatient (REF) | payer MEDICARE, SELFPAY ==
[2024-12-19 10:54] LABS: MANUAL DIFF FLAG NO
[2024-12-19 12:00] LABS: Basophils Percent Auto 0.6 % (0-2); Eosinophils Absolute Auto 0.1 X10*3/uL (0.0-0.4); Eosinophils Percent Auto 2.1 % (0-4); Imm Gran Abs Auto 0.02 X10*3/uL (0.00-0.03); Imm Gran Pct Auto 0.4 % (0.0-0.4); Lymphocytes Absolute Auto 1.6 X10*3/uL (1.2-4.9); Lymphocytes Percent Auto 33.1 % (20-40); Mean Corpuscular HGB Conc 35.5 g/dl (31.0-36.0); Mean Corpuscular Hemoglobin 34.2 pg (27.0-33.0); Mean Corpuscular Volume 96.3 fL (80.0-98.0); Mean Platelet Volume 10.1 fL (9.4-12.4); Monocytes Absolute Auto 0.3 X10*3/uL (0.1-1.2); Monocytes Percent Auto 6.6 % (2-11); Neutrophils Absolute Auto 2.8 x10*3/uL (2.0-8.3); Neutrophils Percent Auto 57.2 % (45-73); Platelet Count 151 X10*3/uL (160-400); Red Blood Count 3.22 X10*6/uL (4.60-5.80); Red Cell Distribution Width 13.1 % (11.0-16.0); White Blood Count 4.9 X10*3/uL (4.8-10.8)
[2024-12-19 12:22] LABS: Parathyroid Hormone Intact 88.7 pg/mL (8.7-77.1)
[2024-12-19 12:27] LABS: Albumin Level 3.8 g/dL (3.5-5.0); Anion Gap 13 (12-20); Blood Urea Nitrogen 31 mg/dL (9-16); Calcium 9.3 mg/dL (8.4-10.2); Carbon Dioxide 18 mmol/L (22-29); Chloride 113 mmol/L (96-108); Estimated Glomerular Filt Rate 31; Magnesium 2.1 mg/dL (1.6-2.6); Phosphorus 3.2 mg/dL (2.7-4.5); Sodium 139 mmol/L (135-145)
[2024-12-19 12:46] LABS: Vitamin D 25-OH Total 37.8 ng/mL (>30)
[2024-12-19 14:52] LABS: Appearance Urine Clear; Color Urine Yellow; Glucose Urine UA Negative (Negative); Leukocyte Esterase Urine Trace (Negative); Nitrite Urine Negative (Negative); PH 5.5 (5.0-9.0); UMIC TRIGGER UA YES; Urine Blood Negative (Negative); Urine Ketones Trace mg/dL (Negative); Urine Protein Negative (Neg-Trace)
[2024-12-19 15:05] LABS: Bacteria Urine None Seen (None Seen); RBC Urine 0-2 /HPF (0-2); WBC Urine 0-5 /HPF (0-5)
[2024-12-19 16:49] LABS: Creatinine Urine 206.53 mg/dL; Microalbum/Creatinine Ratio Ur 16.4 ug/mg cr (<30); Protein/Creatinine Ratio, Ur 0.05 (<0.2); Total Protein Urine Random 10 mg/dL (<12)
== END 2024-12-19 10:22 | disposition home or self-care (01) ==
LOC: HO.LAB 10:21
PROVIDERS: PCP Internal Medicine; Visit Provider Internal Medicine Nephrology
DX: N18.32 Chronic kidney disease, stage 3b (principal); E11.9 Type 2 diabetes mellitus without complications; I10 Essential (primary) hypertension
CPT/HCPCS: 36415; 80051; 81001; 82040; 82043; 82306; 82310; 82565; 82570; 83735; 83970; 84100; 84156; 84520; 85025; 87086

== ENCOUNTER → 2025-01-24 09:50 | Outpatient (REF) | payer MEDICARE, SELFPAY ==
--- NOTE | 2025-01-24 09:59 | CA_ITS ---
Transthoracic Echocardiogram Patient (Last, First, Middle): Boaz PadillaKiki Gender: Male Date of : 1950 Age: 74 Procedure Date: 01/24/2025 Procedure Type: Transthoracic Echocardiogram Location: OP Height: 154.94 cm Weight: 86.18 kg BSA: 1.85 m2 Heart Rate: bpm BP: 124 / 70 mmHg Granite Countertop Installer: MANUEL Referring MD: Gabino Palacios MD Roll Edge Stitcher Hand: Loi Ortiz MD Symptoms: Z95.3 - Presence of xenogenic heart valve Study Quality: Technically Difficult/contrast allergy ECG Rhythm: Sinus Conclusions: - 1. Technically difficult study 2. Left ventricular was not well visualized but appears to have preserved LV ejection fraction greater than 55% with impaired relaxation filling pattern 3. Bioprosthetic aortic valve with mean gradient of 13 mm Hg with apparent normal function Findings Left Ventricle The left ventricle was not well visualized. Normal left ventricular cavity size. There is normal left ventricular wall thickness. The left ventricular systolic function is normal. Regional wall motion abnormalities can not be excluded due to suboptimal endocardial definition. Spectral Doppler is indicative of an impaired relaxation filling pattern. technically difficult study. LV ejection fraction appears preserved at greater than 55% Right Ventricle The right ventricle was not well visualized. Atria The left atrium is normal in size. Interatrial shunt cannot be excluded. The right atrium was not well visualized. Aortic Valve A bioprosthetic aortic valve is present. The prosthetic aortic valve appears to be functioning normally. The mean gradient is 13 mmHg. There is trace (trivial) aortic valve regurgitation. Mitral Valve The mitral valve was not well visualized. There is no mitral valve regurgitation. Pulmonic Valve The pulmonic valve was not well visualized. Tricuspid Valve The tricuspid valve was not well visualized. Tricuspid regurgitation envelope is inadequate for calculation of right ventricular systolic pressure. Great Vessels The aorta was not well visualized. The pulmonary artery was not well visualized. Venous The inferior vena cava is normal in size. Pericardium/Pleural The pericardium was not well visualized. Measurements 2D Linear Measurements IVSd: 0.92 0.6-0.9/0.6-1.0 cm LVIDd: 3.93 3.9-5.3/4.2-5.9 cm LVIDd Index: 2.12 2.4-3.2/2.2-3.1 cm/m2 LVIDs: 2.62 2.0-3.6 cm LVPWd: 0.99 0.7-1.1 cm LA Diam: 3.80 2.7-3.8/3.0-4.0 cm LAIDs Index: 2.05 1.5-2.3 cm/m2 LV Mass: 144.76 67-162/88-224 g LV Mass Index: 78.25 43-95/49-115 g/m2 LVOT Diam: 2.10 3.0+(-)1.3 cm Mitral Valve MV Pk E: 0.73 MV PK A: 1.31 MV Decel Time: 250.00 E/A: 0.60 E'Lateral: 12.00 E'Medial: 5.11 E/E' Med: 14.30 E/E' Lat: 6.10 PHT: 73.00 MVA PHT: 3.01 Decel Thayer: 2.91 Aortic Valve AoV Pk Israel: 2.42 AoV Mn Israel: 1.73 AoV VTI: 0.50 AoV Pk Grad: 23.00 Aov Mn Grad: 13.00 THOMAS Cont.VTI: 2.13 LVOT LVOT Pk Israel: 1.45 LVOT Mn [place]: 1.05 LVOT VTI: 0.31 LVOT Pk Grad: 8.00 LVOT Mn Grad: 5.00 LVOT Diam: 2.10 LVOT Area: 3.46 Diastolic Function MV Pk E: 0.73 MV Pk A: 1.31 E/A: 0.60 E'Medial: 5.11 E/E' Med: 14.30 E' Laterial: 12.00 E/E' Lat: 6.10 Right Ventricle TAPSE (mm): 23.50 TVS' [place]: 11.40 Great Vessels Aorta Ao Asc: 3.60 2.1-3.4 cm Updated in Other Vendor System with Status of Final Loi Ortiz MD electronically signed on 01/24/2025 4:59:49 PM with status of Final
--- OUTSIDE RECORDS SUMMARY | 2025-01-24 10:44 | XMS_ITS | Patient Health Record ---
[facility] Address [address] [place] [address] Care Team Providers Care Sheriffs Detective Name Role Phone Yonas Oconnor MD Primary Care Provider Lauren Lei Unavailable [phone] Allergies Allergen (clinical drug ingredient) Drug/Non Drug Allergy documented on EMR Reaction Allergy Type Onset Date Status ibuprofen Advil swelling Drug Allergy Active Aleve swelling Drug Allergy Active Motrin swelling Drug Allergy Active peanut allergenic extract Peanut (Diagnostic) anaphylaxis Drug Allergy Active Gadolinium and/or gadolinium compound (FN) Gadolinium Derivatives stomach upsets Drug Allergy Active Reason For Referral No Information Medications Medication SIG (Take, Route, Frequency, Duration) Notes Start Date End Date Status Pravastatin Sodium 20 MG 1 tablet Orally Once a day Not-Taking Senokot 8.6 MG 2 tablets at bedtime as needed Orally Once a day Active Multivitamin Active Stool Softener Activ e Aspirin 81 MG 1 tablet Orally Once a day for 30 day(s) Active cloNIDine HCl 0.1 MG 1 tablet Orally Onc e a day for 30 day(s) Active Colace 100 MG 1 capsule as needed Orally Once a day Active Januvia 50 MG 1 tablet Orally Once a day Active Lisinopril 2.5 MG 1 tablet Orally Once a day for 30 day(s) Active Tacrolimus 1 MG as directed Orally T wice a day Active Repaglinide 0.5 MG 1 tablet 15 to 30 minutes before meals Orally Twice a day for 30 day(s) Active Vitamin C 500 MG 1 tablet Orally Once a day for 30 day(s) Active Atorvastatin Calcium 20 MG 1 tablet Orally Once a day for 30 day(s) Active Vitamin D 500mg Once a day Act grace amLODIPine Besylate 10 MG 1 tablet Orally Once a day for 30 day(s) Not-Taking Extra Depth Orthopedic Shoes (1 Pair) with Customized Heat Molded Multidensity Innersoles (3 Pair) as directed Dx: NIDDM (E11.9), Hammertoe Foot Deformity (M20.41,M20.42), Preulcerative Skin Lesion(s) (L85.1) 06/21/2020 Active Immunizations Vaccine Route Administration Date Status Comme nts COVID-19 Moderna Vaccine Unknown 06/19/2021 Administered First Dose:10/24/2020 Second Dose:11/21/2020 Influenza Unknown 06/27/2020 Administered Influenza Unknown 07/28/2021 Administered Social History Tobacco Use: Social History Observation Description Date Details (start date - stop date) Never Smoker NA - NA Tobacco Use/Smoking Question Answer Notes Are you a: nonsmoker Alcohol Screen Question Answer Notes Did you have a drink containing alcohol in the p ast year? No Points 0 Interpretation Negative Tobacco use other than smoking: Question Answer Notes Are you an other tobacco user? No Problems Problem Type SNOMED Code ICD Code Onset Dates Problem Status W/U Status Risk Notes Problem [id number] Non-pressure ulcer of right lower extremity, limited to breakdown of skin (L97.911) Active confirmed Problem [id number] Type 2 diabetes mellitus without complication, without long-term current use of insulin (E11.9) Active confirmed Plan Of Treatment No Information Insurance Providers Payer Name Payer Address Payer Phone Subscriber Number Group Number Insured Name Patient Relationship to Insured Coverage Start Date Coverage End Date [facility] [address] [place] [address] [id number] Boaz Bangura Self - patient is the insured Medical (General) History Medical History History ICD Code Back,Hip,and Knee pain type II diabetes Diverticulosis Heart disease High blood pressure Kidney disease Liver disease Scarlet fever Chicken pox Transfusions Surgical History Surgery Date(Month/Year) liver transplant 01/2017 Hospitalization History Reason Date(Month/Year) Liver transplant 3 visits- blood transfu sions ,Spinal infections 01/2017
--- OUTSIDE RECORDS SUMMARY | 2025-01-24 10:44 | XMS_ITS | Clinical Summary ---
Author Organization [facility] [address] [place] [address] [place] [phone] Phone Care Team Providers Care Block Breaker Name Role Phone Juan Carlos Freeman MD Primary Care Provider Allergies Active Allergy Reactions Criticality Noted Date Comments Gadolinium-Containing Contrast Media Other 10/08/2021 Ibuprofen 09/05/2010 swelling Naproxen Other 10/08/2021 Nsaids (Non-Steroidal Anti-I nflammatory Drug) 08/03/2022 Peanut Other 10/08/2021 Prednisone 08/03/2022 Medications tirzepatide (Mounjaro) 5 mg/0.5 mL injection Inject 1.5 mL (15 mg total) under the skin. 4 Active tacrolimus (PROGRAF) 1 mg capsule Take 1 capsule (1 mg total) by mouth. 3 Active tacrolimus (PROGRAF) 0.5 mg capsule Take 1 capsule (0.5 mg total) by mouth. 3 Active senna (SENOKOT) 8.6 mg tablet Take 1 tablet (8.6 mg total) by mouth 1 (one) time each day. Active omeprazole (PriLOSEC) [address] capsule Take 1 capsule (20 mg total) by mouth 1 (one) time each day. 3 Active lisinopriL (PRINIVIL,ZESTR IL) 2.5 mg tablet Take 1 tablet (2.5 mg total) by mouth 1 (one) time each day. 2 Active furosemide (LASIX) 40 mg tablet Take 0.5 tablets (20 mg total) by mouth. 4 Active apixaban (Eliquis) 5 mg tablet Take 1 tablet (5 mg total) by mouth. 2 Active ascorbic acid, vitamin C, 500 mg capsule Take 500 mg by mouth. Active atorvastatin (LIPITOR) 20 mg tablet Take 1 tablet (20 mg total) by mouth 1 (one) time each day. 2 Active ferrous sulfate 325 mg (65 mg elemental iron) tablet Take 1 tablet (325 mg total) by mouth 1 (one) time each day. 4 Active MULTIVITAMIN ORAL 1 (one) time each day. Active MULTIVITAMIN ORAL Take 500 mg by mouth 1 (one) time each day. Active senna (SENOKOT) 8.8 mg/5 mL syrup Take by mouth. Activ e amLODIPine (NORVASC) 10 mg tablet TAKE ONE TABLET BY MOUTH EVERY DAY 90 tablet 1 5 Active glipiZIDE (GLUCOTROL) 5 mg tablet Take 1 tablet (5 mg total) by mouth 2 (two) times a day before meals. Active lactulose (CHRONULAC) solution Take 30 mL (20 g total) by mouth 1 (one) time each day if needed (hyperammonemi a). Titrate to 2 to 3 bowel movements 2700 mL 5 Active Active Problems Problem Noted Date Diagnosed Date Sarcoid 09/01/2024 BIRDIE on CPAP 07/26/2024 Iron deficiency anemia 08/16/2023 Atrial fibrillation ([facility]/HCC V24, CMS/HCC V28) 0 03/25/2023 Congestive heart failure ([facility]/HCC V24, [facility] V 28) 03/25/2023 Elevated serum creatinine 02/09/2023 Hyperammonemia (CMS/HCC V24) 02/09/2023 Neutropenia (CMS/HCC V24) 02/09/2023 S/P TAVR (transcatheter aortic valve replacement ) 02/09/2023 Anemia in chronic kidney disease 09/03/2022 Stage 4 chronic kidney disease (CMS/HCC V24, CMS /HCC V28) 09/03/2022 Renal osteodystrophy 09/03/2022 Ulcer of lower extremity ([facility] V24, CMS/[facility] V 28) 09/03/2022 Anemia 08/03/2022 Ascites 08/03/2022 Acute nontraumatic kidney injury ([facility] V24) 1 10/03/2021 Disorder of brain 08/03/2022 End stage liver disease ([facility] V24, [facility] V2 8) 08/03/2022 Hepatic encephalopathy ([facility] V24, [facility] V28 ) 08/03/2022 Non-pressure chronic ulcer o f unspecified part of right lower leg limited to breakdown of skin ([facility] V24, [facility] V28) 08/03/2022 Obesity 08/03/2022 Type 2 diabetes mellitus wit hout complication ([facility] V24, [facility] V28) 08/03/2022 Osteomyelitis ([facility] V24, [facility] V28) 022 Gastritis 06/08/2022 Overview (09/01/2024): Seen on endoscopy [place] [facility] [place]. Ulcer, duodenum peptic 06/08/2022 Overview (09/01/2024): Seen on endoscopy at [facility] [place] 06/06/22. CKD (chronic kidney disease) stage 3, GFR 30-59 ml/min ([facility] V24, [facility] V28) 04/19/2020 Essential hypertension 02/25/2018 History of liver transplant ([facility] V24, [facility] V28) 08/24/2017 Type 2 diabetes mellitus wit h stage 4 chronic kidney disease, without long-term current use of insulin ([facility] V24, [facility] V28) 08/24/2017 Vertebral osteomyelitis ([facility] V24, [facility] V2 8) 06/12/2017 Hyperlipidemia 05/10/2017 Overview (09/01/2024): Last Assessment & Plan: LDL 96 and liver function was normal today. Will continue atorvastatin 20 mg daily. Aortic valve stenosis 02/25/2017 Intra-abdominal varices 01/09/2014 Watermelon stomach 01/09/2014 Gallstones 10/12/2013 Portal hypertension ([facility] V24, [facility] V28) 0 10/12/2013 Gilbert's syndrome 12/22/2012 Overview (09/01/2024): [facility] note 06/15/2012. Calculus of kidney 10/20/2011 Overview (09/01/2024): Nephrolithiasis Cirrhosis ([facility] V24, [facility] V28) 02/12/2010 Encounters Date Type Department Care Team Description 12/22/2024 9:30 AM EDT Office Visit [facility] - [address] [phone] Juan Carlos Freeman MD Osteoporosis, unspecified osteoporosis type, unspecified pathological fracture presence (Primary Dx); Hyperlipidemia, unspecified hyperlipidemia type; Class 2 severe obesity due to excess calories with serious comorbidity and body mass index (BMI) of 36.0 to 36.9 in adult ([facility] V24, [facility] V28) 11/27/2024 9:58 AM EST - 11/27/2024 11:59 PM EST Hospital Encounter [facility] - [address] [phone] Screening for osteoporosis Discharge Disposition: Home or Self Care from Last 3 Months Immunizations Name Administration Dates Next Due Hepatitis A-Hepatitis B Adul t (Twinrix) 18yo and older 06/11/2010,12/05/2009,11/07/2009 Hepatitis B (Wdcpavq-C-Dwbtj , Recombivax HB-Adult) 19yo and older 09/03/2015,04/03/2015,03/01/2015,03/01 Influenza trivalent, 0.5mL ( Fluad) 65yo and older 12/22/2024,06/19/2021,08/22/2019 Influenza trivalent, 0.5mL, preservative free (Fluarix; FluLaval; Fluzone) ages 6mo and older (Afluria) 3 years and older 07/28/2021,06/27/2020,09/03/2015,09/10,07/24/2010 Influenza, Unspecified 09/02/2018,2016,08/11/2016,09/15,09/10/2011,06/27/2010 Moderna SARS-CoV-2 COVID-19, mRNA, LNP-S, preservative free 06/19/2021 Pneumococcal conjugate 13 va lent (Prevnar 13, PCV13) 2mo and older 10/29/2015 Pneumococcal polysaccharide 23 valent (Pneumovax 23) 2yo and older 04/24/2022,06/25/2014 Surgical History Surgery Date Site/Laterality Comments COLONOSCOPY 10/17/09 PROCEDURE: HISTORICAL COLONOSCOPY; COMMENT: diverticulosis; repeat in ten years ESOPHAGOGASTRODUODENOSCOPY 10/17/09 PROCEDURE: LA ESOPHAGOGASTRODUODENOSCOPY TRANSORAL DIAGNOSTIC; COMMENT: normal, without varices; repeat in two years ESOPHAGOGASTRODUODENOSCOPY 09/18/11 PROCEDURE: LA ESOPHAGOGASTRODUODENOSCOPY TRANSORAL DIAGNOSTIC; COMMENT: normal, without varices; repeat in two years ESOPHAGOGASTRODUODENOSCOPY 01/09/14 PROCEDURE: LA ESOPHAGOGASTRODUODENOSCOPY TRANSORAL DIAGNOSTIC; COMMENT: No esophageal varices; question of bulbar varix; portal hypertensive gastropathy with mild watermelon stomach. Repeat in 2 years Medical History Medical History Date Comments Sarcoid DX:Sarcoid Gallstones 10/12/2013 DX:Gallstones Portal hypertension (CMS/HCC V24, CMS/HCC V28) 10/12/2013 DX:Portal hypertension (HCC) Esophageal varices (CMS/HCC V24, CMS/HCC V28) 10/12/2013 DX:Esophageal varices (HCC) Ulcer, duodenum peptic 06/08/2022 DX:Ulcer, duodenum peptic; COMMENT: Seen on endoscopy at [facility] [place]22. Gastritis 06/08/2022 DX:Gastritis; CO MMENT: Seen on endoscopy at [facility] [place] 06/06/22. Family History Medical History Relation Name Comments Hypertension Father Heart attack Mother Hypertension Mother Relation Name Status Comments Father Mother Social History Tobacco Use Types Packs/Day Years Used Date Smoking Tobacco: Never Smokeless Tobacco: Never Alcohol Use Standard Drinks/Week Comments No 0 (1 standard drink = 0.6 oz pur e alcohol) Housing Instability Answer Date Recorde d Are you worried that in the next 2 months you may not have stable housing? No 12/21/2024 Food Access & Nutrition Answer Date Rec orded Do you have access to a vari ety of food including fruits and vegetables? Yes 12/21/2024 Access to Healthcare Answer Date Record ed Within the last 3 months, ho w many times did you visit the emergency department for your medical care? 0 12/21/2024 Health Literacy Answer Date Recorded How often do you need to hav e someone help you when you read instructions, pamphlets, or other written material from your doctor or pharmacy? Never 12/21/2024 Caregiver: How often do you need to have someone help you when you read instructions, pamphlets, or other written material from your doctor or pharmacy? Not on file 12/21/2024 Financial Risk Answer Date Recorded How hard is it for you to pa y for the very basics like food, housing, medical care, and air conditioning / heating? Not very hard 12/21/2024 Transportation Answer Date Recorded Has the lack of transportati on kept you from meetings, work, or from getting things needed for daily living? No Has the lack of transportati on kept you from medical appointments or from getting medications? No 12/21/2024 Social Isolation Answer Date Recorded How often do you feel lonely or isolated from th ose around you? Never 12/21/2024 Food Risk Answer Date Recorded Within the past 12 months we worried whether our food would run out before we got money to buy more. Never true 12/21/2024 Within the past 12 months th e food we bought just didn't last and we didn't have money to get more. Never true 12/21/2024 Dependent Care Answer Date Recorded Do you need help finding or paying for care for your loved ones. For example, child development professor or elderly care for an older adult? No 12/21/2024 Education Answer Date Recorded Do you think completing more education or training, like finishing a GED, going to college, or learning a trade, would be helpful for you? No 12/21/2024 Employment and Income Answer Date Recor ded During the last four weeks, have you been actively looking for work? No 12/21/2024 Living Situation Answer Date Recorded What is your living situation? 0 12/21/2024 Sex and Gender Information Value Date Recorded Sex Assigned at Not on file Legal Sex Male 2:02 AM EST Gender Identity Not on file Sexual Orientation Not on file Obstetrics History Last Filed Vital Signs Vital Sign Reading Time Taken Comments Blood Pressure 114/66 12/22/2024 9:25 AM EDT Pulse 78 12/22/2024 9:25 AM EDT Temperature 36.4 ??C (97.6 ??F) 12/22/2024 9:25 AM ED T Respiratory Rate 12 12/22/2024 9:25 AM EDT Oxygen Saturation - - Inhaled Oxygen Concentration - - Weight 90.7 kg (200 lb) 12/22/2024 9:25 AM EDT Height 157.5 cm (5' 2 ) 12/22/2024 9:25 AM EDT Body Mass Index 36.58 12/22/2024 9:25 AM EDT Plan of Treatment Upcoming Encounters Date Type Department Care Team (Late st Contact Info) Description 03/29/2025 9:30 AM EDT Office Visit Adult [facility] [address] [place] [phone] Juan Carlos Freeman MD [address] [place] [address] Health Maintenance Due Date Last Done Comments Diabetes: Annual GFR (Glomerular Filtration Rate) 1950 Zoster Vaccines (1 of 2) 02/13/2015 12/19/2014 Abdominal Aortic Aneurysm (AAA) Screen 09/05/2022 Falls Risk Assessment 09/05/2022 Hepatitis C Screening 09/05/2022 Medicare Annual Wellness Visit 09/05/2022 Hypertension/CHF/CAD Annual BMP Blood Test 09/06/2022 COVID-19 Vaccine ( season) 2024 06/19/2021, 11/21/2020, 10/24/2020 Diabetes: Blood Sugar Control Test (HGBA1C) 11/11/2024 05/11/2024 DTaP,Tdap,and Td Vaccines (3 - Td or Tdap) 03/01/2025 03/01/2015, 06/04/2009 Diabetes: Annual Foot Exam 03/14/2025 03/14/2024 Diabetes: Annual Retina Eye Exam 07/05/2025 07/05/2024 Diabetes: Annual Urine Albumin-Creatinine Ratio (uACR) 12/19/2025 12/19/2024, 05/11/2024 Depression Screening 12/21/2025 12/21/2024 Social Influencers of Health Screening 12/21/2025 12/21/2024 Colorectal Cancer Screening: Colonoscopy 04/22/2027 04/22/2017 Cholesterol Screening (Lipid Panel) 05/11/2029 05/11/2024 Hepatitis A Vaccines Aged Out 06/11/2010, 12/05/2009, 11/07/2009 No longer eligible based on patient's age to complete this topic Hepatitis B Vaccines Completed 09/03/2015, 04/03/2015, 03/01/2015, Additional history exists Pneumococcal Vaccine: 50+ Years Completed 04/24/2022, 10/29/2015, 06/25/2014 RSV Immunization Adult Patients Completed 06/24/2023 Influenza Vaccine Completed 12/22/2024, , 07/28/2021, Additional history exists HIB Vaccines Aged Out No longer eligi ble based on patient's age to complete this topic HPV Vaccines Aged Out No longer eligi ble based on patient's age to complete this topic IPV Vaccines Aged Out No longer eligi ble based on patient's age to complete this topic MMR Vaccines Aged Out No longer eligi ble based on patient's age to complete this topic Meningococcal ACWY Vaccine Aged Out N o longer eligible based on patient's age to complete this topic Meningococcal B Vaccine Aged Out No l onger eligible based on patient's age to complete this topic RSV Immunization Patients Under 20 months Aged Out No longer eligible based on patient's age to complete this topic Varicella Vaccines Aged Out No longer eligible based on patient's age to complete this topic Procedures Procedure Name Priority Date/Time Associated Diagnosis Comments BD BONE DENSITY DXA AXIAL SKELETON Routine 11/27/2024 10:21 AM EST Screening for osteoporosis EXTERNAL DEXA REPORT 11/27/2024 from Last 3 Months Results * BD Bone Density DXA Axial Skeleton (11/27/2024 10:21 AM EST) Anatomical Region Laterality Modality Wrist, Hip, L-spine Bone Densito metry 11/27/2024 8:10 PM EST Impressions 11/27/2024 8:11 PM EST Osteoporosis. The NOF guidelines recommend that FDA approved medical therapies be considered in postmenopausal women and men age >50 years with a: i. Hip or vertebral (clinical or morphometric) fracture ii. T score of < -2.5 at the spine or hip iii. 10 year fracture probability by FRAX of >3% for hip fracture, or >20% for major osteoporotic fracture PLEASE NOTE: ?? W.H.O. classification is based on lowest measured density at the spine, femoral neck, or total hip.This classification has prognostic significance when applied to post menopausal women and older men. 1) ??The World Health Organization defines low BMD as follows: ?T-score ? Normal ? at or > -1 Osteopenia ? < -1 and ??> - 2.5 Osteoporosis ? at or < -2.5 without fractures Established osteoporosis ? < -2.5 with fractures -------- FINAL REPORT -------- Dictated By: Orquidea Jackson Dictated Date: 11/27/2024 20:10 ET Assigned Physician: Orquidea Jackson Reviewed and Electronically Signed By: Orquidea Jackson Signed Date: 11/27/2024 20:11 ET Workstation ID: [id number] Transcribed By: Self Edit Transcribed Date: 11/27/2024 20:10 ET Narrative 11/27/2024 8:11 PM EST Clinical history: Osteoporosis Scans of the lumbar spine and hips were performed on a Xtime/Helicom[employer] fan beam bone densitometer. ? Bone mineral density measurements and associated T and Z scores respectively are as follows: Lumbar Spine: L1-L4 BMD: 1.092 g/cm2 ? T-Score: 0 ? Z-Score: 1.0 Compared with the prior study dated 05/16/2019, the BMD reading has decreased which is not statistically significant Left Proximal Femur: Neck BMD: 0.568 g/cm2 ? T-Score: -2.7 ?? Z-Score: -1.4 Total BMD: 0.795 g/cm2 ? T-Score: -1.6 ?Z-Score: -0.8 Compared with the prior study the mean BMD reading in the total left hip has decreased which is statistically significant Compared with standards for the young adult, lowest measured bone density places the patient in the W.H.O. osteoporotic range. Procedure Note Orquidea Jackson MD - 11/27/2024 Clinical history: Osteoporosis Scans of the lumbar spine and hips were performed on a Xtime/[employer]igeBre[employer]fan beam bone densitometer. Bone mineral density measurements and associated T and Z scoresrespectively are as follows: Lumbar Spine: L1-L4 BMD: 1.092 g/cm2 T-Score: 0 Z-Score: 1.0 Compared with the prior study dated 05/16/2019, the BMD reading hasdecreased which is not statistically significant Left Proximal Femur: Neck BMD: 0.568 g/cm2 T-Score: -2.7 Z-Score: -1.4 Total BMD: 0.795 g/cm2 T-Score: -1.6 Z-Score: -0.8 Compared with the prior study the mean BMD reading in the total left hiphas decreased which is statistically significant Compared with standards for the young adult, lowest measured bone densityplaces the patient in the W.H.O. osteoporotic range. IMPRESSION: Osteoporosis. The NOF guidelines recommend that FDA approved medical therapies beconsidered in postmenopausal women and men age >50 years with a: i. Hip or vertebral (clinical or morphometric) fracture ii. T score of < -2.5 at the spine or hip iii. 10 year fracture probability by FRAX of >3% for hip fracture, or >20%for major osteoporotic fracture PLEASE NOTE: W.H.O. classification is based on lowest measured density at the spine,femoral neck, or total hip.This classification has prognostic significancewhen applied to post menopausal women and older men. 1) The World Health Organization defines low BMD as follows: T-score Normal at or > -1 Osteopenia < -1 and > -2.5 Osteoporosis at or < -2.5 withoutfractures Established osteoporosis < -2.5 with fractures -------- FINAL REPORT -------- Dictated By: Orquidea Jackson Dictated Date: 11/27/2024 20:10 ET Assigned Physician: Orquidea Jackson Reviewed and Electronically Signed By: Orquidea Jackson Signed Date: 11/27/2024 20:11 ET Workstation ID: [id number] Transcribed By: Self Edit Transcribed Date: 11/27/2024 20:10 ET Juan Carlos Freeman MD IMG DXA PROCEDURES Final Re sult * External Dexa Report (11/27/2024) Anatomical Region Laterality Modality Bone Densitometr y Provider [facility] IMG DXA PROCEDURES Final Result from Last 3 Months Insurance MEDICARE Care Teams Block Breaker Relationship Specialty Start Date End Date Juan Carlos Freeman MD [address] [place] [address] [facility] - General 07/30/22
--- OUTSIDE RECORDS SUMMARY | 2025-01-24 10:44 | XMS_ITS | Clinical Summary ---
Author Organization [facility] Facility Address [address] [place] [address] Care Team Providers Care Rn Dermatology Name Role Phone Unavailable Primary Care Provider Unavailabl e Allergies Active Allergy Reactions Criticality Noted Date Comments Gadolinium Derivatives Other (see comments) 08/2022 Ibuprofen Other (see comments) 10/08/2021 Naproxen Other (see comments) 10/08/2021 Nsaids 08/03/2022 Peanut (Diagnostic) Other (see comments) 2021 Perflutren Lipid Microsphere 022 Prednisone 08/03/2022 Medications tacrolimus (PROGRAF) 1 MG capsule 1 mg .5 at night 06/24/2022 Active sucralfate (CARAFATE) 1 g tablet TAKE ONE TABLET BY MOUTH TWICE A DAY BEFORE MEALS 06/07/2022 Active omeprazole (PriLOSEC) [address] capsule Take 20 mg by mouth 1 (one) time each day 07/14/2022 Active lisinopril 2.5 MG tablet Take 2.5 mg by mouth 1 (one) time each day 05/29/2022 Active furosemide (LASIX) 80 MG tablet Take 20 mg by mouth every morning 06/07/2022 Active atorvastatin (LIPITOR) 20 MG tablet Take 20 mg by mouth 1 (one) time each day 05/29/2022 Active Eliquis 5 MG tablet Take 5 mg by mouth 2 (two) times a day 07/07/2022 Active amLODIPine-ator vastatin (CADUET) 10-10 MG per tablet Take 1 tablet by mouth 1 (one) time each day Active senna (SENOKOT) 8.6 MG tablet Take 1 tablet by mouth 1 (one) time each day Active Ascorbic Acid (vitamin C) 500 MG tablet Take 500 mg by mouth 1 (one) time each day Active Multiple Vitamin (multivitamin) tablet Take 1 tablet by mouth 1 (one) time each day Active glipiZIDE (GLUCOTROL) 5 MG tablet Take 5 mg by mouth 11/22/2024 Active Mounjaro 15 MG/0.5ML solution auto-injector INJECT 15MG UNDER THE SKIN EVERY 7 DAYS 12/12/2024 Active Active Problems Problem Noted Date Diagnosed Date Type 2 diabetes mellitus wit h diabetic chronic kidney disease 12/25/2024 Congestive heart failure 03/25/2023 Atrial fibrillation 03/25/2023 H/O: liver recipient 03/25/2023 Hyperlipidemia 03/25/2023 Hypertensive disorder 03/25/2023 Neutropenia 03/25/2023 Ulcer of lower extremity 09/03/2022 Stage 3b chronic kidney disease 09/03/2022 Anemia in chronic kidney disease 09/03/2022 Renal osteodystrophy 09/03/2022 Impaired mobility 08/03/2022 Hepatic encephalopathy 08/03/2022 Disorder of brain 08/03/2022 End stage liver disease 08/03/2022 Ascites 08/03/2022 Aortic valve stenosis 08/03/2022 Anemia 08/03/2022 Type 2 diabetes mellitus without complication Acute nontraumatic kidney injury 08/03/2022 Portal hypertension 08/03/2022 Obesity 08/03/2022 Non-pressure chronic ulcer o f right lower leg limited to breakdown of skin 08/03/2022 Osteomyelitis 08/03/2022 Encounters Date Type Department Care Team Description 12/25/2024 4:00 PM EDT [facility] Visit [facility] [address] [place] [address] Lexx Ramirez MD Stage 3b chronic kidney disease (HCC) (Primary Dx); Renal osteodystrophy; Anemia in chronic kidney disease 12/19/2024 Orders Only [facility] [address] [place] [address] Lexx Ramirez MD from Last 3 Months Immunizations Immunization Administration Dates Next Due Hep A / Hep B 06/11/2010,12/05/2009,11/07/2009 Hepatitis B 04/03/2015,03/01/2015 Influenza (IM) Preservative Free 07/28/2021,10/0 09/2019 Influenza, Unspecified 06/19/2021,2018,09/02/2018,08/04/2017 ,08/11/2016,09/15/2013,09/10/2011, 0 Moderna SARS-COV-2 06/19/2021,11/21/2020, 021 Pneumococcal Polysaccharide 04/24/2022, 4 Tdap 06/04/2009 Zoster 12/19/2014 Family History Relation Status Comments Father Mother Social History Tobacco Use Types Packs/Day Years Used Date Smoking Tobacco: Never Tobacco Cessation:Counseling Given: Not Answered Alcohol Use Standard Drinks/Week Comments Never 0 (1 standard drink = 0.6 oz pur e alcohol) Sex and Gender Information Value Date Recorded Sex Assigned at Not on file Legal Sex Male 5:24 PM EST Gender Identity Not on file Sexual Orientation Not on file Last Filed Vital Signs Vital Sign Reading Time Taken Comments Blood Pressure 110/88 12/25/2024 3:23 PM EDT Pulse 78 12/25/2024 3:23 PM EDT Temperature - - Respiratory Rate - - Oxygen Saturation 99% 12/25/2024 3:23 PM EDT Inhaled Oxygen Concentration - - Weight 91.8 kg (202 lb 6.4 oz) 12/25/2024 3:23 P M EDT Height - - Body Mass Index - - Plan of Treatment Upcoming Encounters Date Type Department Care Team (Late st Contact Info) Description 12/24/2025 2:45 PM EDT Office Visit [facility] [address] [place] [address] Lexx Ramirez MD [address] [facility] [address] [place] [address] 12/24/2025 3:30 PM EDT Office Visit [facility] [address] [place] [address] Lexx Ramirez MD [address] [facility] [address] [place] [address] Health Maintenance Due Date Last Done Comments Colorectal Cancer Screening: Annual FOBT 1999 Colorectal Cancer Screening: Colonoscopy 1999 Colorectal Cancer Screening: Sigmoidoscopy 1999 Diabetes: Hemoglobin A1C 06/14/2022 Diabetes: Ophthalmology Exam 06/14/2022 Diabetes: Pedal Pulse Checked 06/14/2022 Diabetes: Sensory Foot Exam 06/14/2022 Diabetes: Visual Foot Exam 06/14/2022 Hepatitis B Vaccine Completed 09/03/2015, 04/03/2015, 03/01/2015, Additional history exists Pneumococcal Vaccine: 50+ Years Completed 04/24/2022, 10/29/2015, 06/25/2014 Pneumococcal Vaccine: Peds ( 0 to 5 Years) and At-Risk Patients (6 to 49 Years) Discontinued 04/24/2022, 10/29/2015, 06/25/2014 Influenza Vaccine Completed 12/22/2024, , 06/19/2021, Additional history exists Procedures Procedure Name Priority Date/Time Associated Diagnosis Comments PROTEIN / CREATININE RATIO, URINE Routine 12/19/2024 2:41 PM EDT ALBUMIN, URINE, RANDOM Routine 12/19/2024 2:41 PM EDT URINALYSIS WITH MICROSCOPIC Routine 12/19/2024 2:41 PM EDT VITAMIN D 25 HYDROXY Routine 12/19/2024 10:53 AM EDT ALBUMIN Routine 12/19/2024 10:53 AM EDT MAGNESIUM Routine 12/19/2024 10:53 AM EDT PHOSPHATE ( PHOSPHORUS) Routine 12/19/2024 10:53 AM EDT CALCIUM Routine 12/19/2024 10:53 AM EDT CREATININE, BLOOD Routine 12/19/2024 10: 53 AM EDT BUN Routine 12/19/2024 10:53 AM EDT ELECTROLYTE PANEL Routine 12/19/2024 10: 53 AM EDT PTH, INTACT (HC) Routine 12/19/2024 10:5 3 AM EDT CBC AND DIFFERENTIAL Routine 12/19/2024 10:53 AM EDT from Last 3 Months Results * Protein, Total, Random Urine w/Creatinine (Protein/Creat Ratio) (12/19/2024 2:41 PM EDT) Protein Urine Random 10 <12 mg/dL See order comments Protein/Creatin ine Ratio, Urine 0.05 <0.2 See order comments Comment: The spot urine protein:creatinine ratio may increase to 0.3 during normal . 12/19/2024 2:41 PM EDT 12/19/2024 2:41 PM EDT us Lexx Ramirez MD LAB URINE ORDERABLES Final Re sult [place] See order comments [place] [address] * Albumin, urine, random (12/19/2024 2:41 PM EDT) Creatinine, Urine 206.53 mg/dL Se e order comments Urine Microalbumin 34.0 mg/L See order comments Microalbumin/Crea tinine Ratio 16.4 <30 ug/mg cr See order comments Comment: ?Albumin/Creatinine Ratio Reference Ranges: ?Normal: < 30 ug/mg creatinine ?Microalbuminuria: ??30 - 300 ug/mg creatinine Clinical Albuminuria: ??> 300 ug/mg creatinine 12/19/2024 2:41 PM EDT 12/19/2024 2:41 PM EDT Lexx Ramirez MD LAB URINE ORDERABLES Final Re sult Performing Organization Address [facility] Co de Phone Number [place] See order comments [place] [address] * (ABNORMAL) Urinalysis with microscopic (12/19/2024 2:41 PM EDT) Color Urine Yellow See orde r comments Appearance Urine Clear See order comments pH Urine 5.5 5.0 - 9.0 See order comments Glucose Urine Negative Negative mg/dL See order comments Blood, Urine Negative Negative See ord er comments Specific [place] Urine 1.020 1.005 - 1.025 See order comments Protein Urine Negative Neg-Trace mg/dL See order comments Ketones, Urine Trace Negative mg/dL See order comments Nitrite, Urine Negative Negative See o rder comments Leukocyte Esterase Urine Trace(A) Negative See order comments RBC, Urine 0-2 0 - 2 /HPF See orde r comments WBC 0-5 0 - 5 /HPF See order comments Squamous Epithelial, Urine 3-5 0 - 2 /HPF See order comments Bacteria, Urine None Seen None Seen See order comments Hyaline Casts, Urine 3-5 0 - 2 /LPF See order comments 12/19/2024 2:41 PM EDT 12/19/2024 2:41 PM EDT Lexx Ramirez MD LAB URINE ORDERABLES Final Re sult Performing Organization Address [facility] Co de Phone Number [place] See order comments [place] [address] * (ABNORMAL) Creatinine (12/19/2024 10:53 AM EDT) Creatinine Serum 2.09(H) 0.5 - 1.4 mg/dL See order comments eGFR 31 See order comments Comment: Chronic Kidney Disease: ??Estimated GFR < 60 mL/min/1.73m2 Severe Kidney Disease: ??Estimated GFR < 15 mL/min/1.73m2 12/19/2024 10:5 3 AM EDT 12/19/2024 10:53 AM EDT us Lexx Ramirez MD LAB BLOOD ORDERABLES Final Re sult Performing Organization Address [facility] Co de Phone Number [place] See order comments [place] [address] * (ABNORMAL) PTH, Intact (12/19/2024 10:53 AM EDT) Parathyroid Hormone, Intact 88.7(H) 8.7 - 77.1 pg/mL See order comments 12/19/2024 10:5 3 AM EDT 12/19/2024 10:53 AM EDT Lexx Ramirez MD LAB [id number] SOLICITED RESULTS Final Result Performing Organization Address [facility] de Phone Number [place] See order comments [place] [address] * Vitamin D 25 Hydroxy (12/19/2024 10:53 AM EDT) Vitamin D, 25-Hydroxy 37.8 >30 ng/mL See order comments Comment: Health Based Reference Values* < 20 ??ng/mL ??Deficient 20-30 ng/mL ??Insufficient > 30 ??ng/mL ??Sufficient *Mayi DURAN. N Engl J Med. 2007;357:266-280 There is no well-established upper level of normal vitamin D levels. Some laboratories use 50 ng/mL as an upper limit of normal. However, toxicity is patient-dependent and may occur at any level. Careful correlation with the patient's presentation is necessary and, if there is concern for vitamin D toxicity, treatment should be considered irrespective of the serum level. Care must be taken in interpreting Vitamin D results from different laboratories and methodologies. ??Published data demonstrated that results from patients undergoing hemodialysis may show a negative bias when tested with various automated 25-OH vitamin D assays when compared to LC-MS/MS. When testing samples from patients whose predominant form of Vitamin D is Vitamin D2, such as patients receiving Vitamin D2 supplementation, results that are subtherapeutic should be confirmed with another method such as LC-MS/MS. 12/19/2024 10:5 3 AM EDT 12/19/2024 10:53 AM EDT us Lexx Ramirez MD LAB BLOOD ORDERABLES Final Re sult [place] See order comments [place] [address] * (ABNORMAL) CBC and Differential (12/19/2024 10:53 AM EDT) WBC 4.9 4.8 - 10.8 X10*3/uL See order comments RBC 3.22(L) 4.60 - 5.80 X10*6/uL See order comments Hgb 11.0(L) 14.0 - 18.0 g/dl See order comments Hematocrit 31.0(L) 42.0 - 52.0 % See order comments MCV 96.3 80.0 - 98.0 fL See order comments MCH 34.2(H) 27.0 - 33.0 pg See order comments MCHC 35.5 31.0 - 36.0 g/dl See order comments RDW 13.1 11.0 - 16.0 % See order comments Platelets 151(L) 160 - 400 X10*3/uL See order comments MPV 10.1 9.4 - 12.4 fL See order comments Neutrophils % Auto 57.2 45 - 73 % See order comments Immature Granulocytes 0.4 0.0 - 0.4 % See order comments Lymphocytes Relative 33.1 20 - 40 % See order comments Monocytes 6.6 2 - 11 % See order comments Eosinophils Relative 2.1 0 - 4 % See order comments Basophils Relative 0.6 0 - 2 % See order comments nRBC Count 0.0 0.0 - 0.2 /100WBC See order comments Neutrophils Absolute 2.8 2.0 - 8.3 x10*3/uL See order comments Immature Grans (Absolute) 0.02 0.00 - 0.03 X10*3/uL See order comments Lymphocytes Absolute 1.6 1.2 - 4.9 X10*3/uL See order comments Monocytes Absolute 0.3 0.1 - 1.2 X10*3/uL See order comments Eosinophils Absolute 0.1 0.0 - 0.4 X10*3/uL See order comments Basophils Absolute 0.0 0.0 - 0.2 X10*3/uL See order comments NRBC Absolute 0.000 0.0 - 0.012 X10*3/uL See order comments 12/19/2024 10:5 3 AM EDT 12/19/2024 10:53 AM EDT us Lexx Ramirez MD LAB BLOOD ORDERABLES Final Re sult Performing Organization Address [facility] Phone Number [place] See order comments [place] [address] * (ABNORMAL) BUN (12/19/2024 10:53 AM EDT) BUN 31(H) 9 - 16 mg/dL See order comments 12/19/2024 10:5 3 AM EDT 12/19/2024 10:53 AM EDT us Lexx Ramirez MD LAB BLOOD ORDERABLES Final Re sult Performing Organization Address [facility] Phone Number [place] See order comments [place] [address] * Phosphorus (12/19/2024 10:53 AM EDT) Phosphorus, Serum 3.2 2.7 - 4.5 mg/dL See order comments 12/19/2024 10:5 3 AM EDT 12/19/2024 10:53 AM EDT us Lexx Ramirez MD LAB BLOOD ORDERABLES Final Re sult Performing Organization Address [facility] Phone Number [place] See order comments [place] [address] * Magnesium (12/19/2024 10:53 AM EDT) Magnesium 2.1 1.6 - 2.6 mg/dL See order comments 12/19/2024 10:5 3 AM EDT 12/19/2024 10:53 AM EDT us Lexx Ramirez MD LAB BLOOD ORDERABLES Final Re sult Performing Organization Address [facility] Phone Number [place] See order comments [place] [address] * Calcium (12/19/2024 10:53 AM EDT) Calcium 9.3 8.4 - 10.2 mg/dL See order comments 12/19/2024 10:5 3 AM EDT 12/19/2024 10:53 AM EDT us Lexx Ramirez MD LAB BLOOD ORDERABLES Final Re sult Performing Organization Address [facility] Phone Number [place] See order comments [place] [address] * Albumin (12/19/2024 10:53 AM EDT) Albumin 3.8 3.5 - 5.0 g/dL See order comments 12/19/2024 10:5 3 AM EDT 12/19/2024 10:53 AM EDT us Lexx Ramirez MD LAB BLOOD ORDERABLES Final Re sult Performing Organization Address [facility] Phone Number [place] See order comments [place] [address] * (ABNORMAL) Electrolyte panel (12/19/2024 10:53 AM EDT) Sodium 139 135 - 145 mmol/L See order comments Potassium 5.0 3.3 - 5.1 mmol/L See order comments Comment:Slight Hemolysis.Int erpret result with caution. Chloride 113(H) 96 - 108 mmol/L See order comments Bicarbonate (CO2) 18(L) 22 - 29 mmol/L See order comments Anion Gap 13 12 - 20 See order comments 12/19/2024 10:5 3 AM EDT 12/19/2024 10:53 AM EDT us Lexx Ramirez MD LAB BLOOD ORDERABLES Final Re sult Performing Organization Address [facility] Phone Number [place] See order comments [place] [address] from Last 3 Months Insurance Medicare [facility] Medicare [facility]
== END ==
LOC: HO.CARD 09:50
PROVIDERS: PCP Internal Medicine; Visit Provider Internal Medicine
DX: Z95.3 Presence of xenogenic heart valve (principal)
CPT/HCPCS: 93306

== ENCOUNTER → 2025-01-24 09:59 | Outpatient (BNV) | payer MEDICARE, SELFPAY | PROVIDERS: PCP Internal Medicine; Visit Provider Internal Medicine Cardiovascular Disease | DX: I50.30 Unspecified diastolic (congestive) heart failure (principal); Z95.3 Presence of xenogenic heart valve | CPT/HCPCS: 93306 ==

== ENCOUNTER 2025-01-27 08:07 | Emergency (ER) | payer MEDICARE, SELFPAY ==
--- NOTE | ~2025-01-27 | XR_ITS ---
CLINICAL HISTORY: cp 2 view chest x-ray Comparison: 04/01/2023 Findings: Mild right lower lobe bandlike atelectasis. No lung infiltrate. Status post cardiac valve replacement as before. No acute fracture. IMPRESSION: 1. No acute findings. This document has been electronically signed by: Edie Garcia MD on 01/27/2025 09:09:24
[2025-01-27 08:10] VITALS: BP 139/68; PULSE 79; RESP 20; TEMP 36.1; O2SAT 100; BMI 36.4
--- NOTE | 2025-01-27 08:13 | ECG_ITS ---
Test Reason : chest pressure Blood Pressure : */* mmHG Vent. Rate : 81 BPM Atrial Rate : 81 BPM P-R Int : 204 ms QRS Dur : 130 ms QT Int : 406 ms P-R-T Axes : 104 -10 128 degrees QTcB Int : 471 ms Normal sinus rhythm Left bundle branch block Abnormal ECG When compared with ECG of 03-Jun-2022 12:31, Left bundle branch block is now Present Referred By: Generic ED Physician Electronically Signed By: Ismael Colon
--- OUTSIDE RECORDS SUMMARY | 2025-01-27 08:36 | XMS_ITS | Patient Health Record ---
Author Organization [facility] Address [address] [place] [address] Care Team Providers Care Lime Kiln Operator Name Role Phone Yonas Oconnor MD Primary Care Provider Lauren Lei Unavailable [phone] Allergies Allergen (clinical drug ingredient) Drug/Non Drug [...] Problem Status W/U Status Risk Notes Problem [id number] Non-pressure ulcer of right lower extremity, limited to breakdown of skin (L97.911) Active confirmed Problem [id number] Type 2 diabetes mellitus without complication, without long-term current use of insulin (E11.9) Active confirmed Plan Of Treatment No Information Insurance Providers Payer Name Payer Address Payer Phone Subscriber Number Group Number Insured Name Patient Relationship to Insured Coverage Start Date Coverage End Date [facility] [address] [place] [address] [id number] Boaz Bangura Self - patient is the [...]
--- OUTSIDE RECORDS SUMMARY | 2025-01-27 08:36 | XMS_ITS | Clinical Summary ---
Author Organization [facility] Facility Address [address] [place] [address] Care Team Providers Care Fourdrinier Wire Weaver Name Role Phone Unavailable Primary Care Provider [...] [facility] Visit [facility] [address] [place] [address] Lexx Ramirez MD Stage 3b chronic kidney disease (HCC) (Primary Dx); Renal osteodystrophy; Anemia in chronic kidney disease 12/19/2024 Orders Only [facility] [address] [place] [address] Lexx Ramirez MD from Last 3 [...] Visit [facility] [address] [place] [address] Lexx Ramirez MD [address] [facility] [address] [place] [address] 12/24/2025 3:30 PM EDT Office Visit [facility] [address] [place] [address] Lexx Ramirez MD [address] [facility] [address] [place] [address] Health Maintenance Due Date Last [...] MD LAB URINE ORDERABLES Final Re sult [place] See order comments [place] [address] * Albumin, urine, random (12/19/2024 2:41 PM [...] ORDERABLES Final Re sult Performing Organization Address [facility] Co de Phone Number [place] See order comments [place] [address] * (ABNORMAL) Urinalysis with microscopic (12/19/2024 2:41 PM EDT) Color Urine Yellow See orde r comments Appearance Urine Clear See order comments pH Urine 5.5 5.0 - 9.0 See order comments Glucose Urine Negative Negative mg/dL See order comments Blood, Urine Negative Negative See ord er comments Specific [place] Urine 1.020 1.005 - 1.025 See order [...] ORDERABLES Final Re sult Performing Organization Address [facility] Co de Phone Number [place] See order comments [place] [address] * (ABNORMAL) Creatinine (12/19/2024 10:53 AM EDT) Creatinine Serum 2.09(H) 0.5 - 1.4 mg/dL See order comments eGFR 31 See order comments Comment: Chronic Kidney Disease: ??Estimated GFR < 60 mL/min/1.73m2 Severe Kidney Disease: ??Estimated GFR < 15 mL/min/1.73m2 12/19/2024 10:5 3 AM EDT 12/19/2024 10:53 AM EDT us Lexx Ramirez MD LAB BLOOD ORDERABLES Final Re sult Performing Organization Address [facility] Co de Phone Number [place] See order comments [place] [address] * (ABNORMAL) PTH, Intact (12/19/2024 10:53 AM EDT) Parathyroid Hormone, Intact 88.7(H) 8.7 - 77.1 pg/mL See order comments 12/19/2024 10:5 3 AM EDT 12/19/2024 10:53 AM EDT Lexx Ramirez MD LAB [id number] SOLICITED RESULTS Final Result Performing Organization Address [facility] de Phone Number [place] See order comments [place] [address] * Vitamin D 25 Hydroxy (12/19/2024 10:53 [...] order comments [place] [address] * (ABNORMAL) CBC and Differential (12/19/2024 10:53 [...] ORDERABLES Final Re sult Performing Organization Address [facility] Phone Number [place] See order comments [place] [address] * (ABNORMAL) BUN (12/19/2024 10:53 AM EDT) BUN 31(H) 9 - 16 mg/dL See order comments 12/19/2024 10:5 3 AM EDT 12/19/2024 10:53 AM EDT us Lexx Ramirez MD LAB BLOOD ORDERABLES Final Re sult Performing Organization Address [facility] Phone Number [place] See order comments [place] [address] * Phosphorus (12/19/2024 10:53 AM EDT) Phosphorus, Serum 3.2 2.7 - 4.5 mg/dL See order comments 12/19/2024 10:5 3 AM EDT 12/19/2024 10:53 AM EDT us Lexx Ramirez MD LAB BLOOD ORDERABLES Final Re sult Performing Organization Address [facility] Phone Number [place] See order comments [place] [address] * Magnesium (12/19/2024 10:53 AM EDT) Magnesium 2.1 1.6 - 2.6 mg/dL See order comments 12/19/2024 10:5 3 AM EDT 12/19/2024 10:53 AM EDT us Lexx Ramirez MD LAB BLOOD ORDERABLES Final Re sult Performing Organization Address [facility] Phone Number [place] See order comments [place] [address] * Calcium (12/19/2024 10:53 AM EDT) Calcium 9.3 8.4 - 10.2 mg/dL See order comments 12/19/2024 10:5 3 AM EDT 12/19/2024 10:53 AM EDT us Lexx Ramirez MD LAB BLOOD ORDERABLES Final Re sult Performing Organization Address [facility] Phone Number [place] See order comments [place] [address] * Albumin (12/19/2024 10:53 AM EDT) Albumin 3.8 3.5 - 5.0 g/dL See order comments 12/19/2024 10:5 3 AM EDT 12/19/2024 10:53 AM EDT us Lexx Ramirez MD LAB BLOOD ORDERABLES Final Re sult Performing Organization Address [facility] Phone Number [place] See order comments [place] [address] * (ABNORMAL) Electrolyte panel (12/19/2024 10:53 AM [...] ORDERABLES Final Re sult Performing Organization Address [facility] Phone Number [place] See order comments [place] [address] from Last 3 Months Insurance Medicare [facility] Medicare [facility]
--- NOTE | 2025-01-27 08:50 | ED.CHESTPAIN ---
HPI - Chest Pain General Chief Complaint: Chest Pain Stated Complaint: headache, diarrhea Time Seen by Provider: 01/27/25 08:22 Source: patient and family Mode of arrival: ambulatory Limitations: no limitations History of Present Illness ED Provider: Dawna Tang APRN HPI narrative: This is a 74-year-old male who has a history of liver transplant secondary to ADKINS (TAMIKA), aortic valve replacement, afib on Eliquis, hypertension, hyperlipidemia, chronic kidney disease, diabetes, GERD presents to the ER with complaints of watery diarrhea for the last 1 week. Patient reports that he is having 5-6 episodes daily. He normally does take Colace, senna and lactulose but since developing diarrhea he has stopped these medications. There is some associated abdominal cramping just prior to having diarrhea. There is no reports of associated nausea, vomiting, fever. Patient denies bloody diarrhea. Patient denies any recent antibiotic use, recent travel, recent hospitalizations or sick contact. He denies any associated upper respiratory symptoms. He has had a mild headache for the last 3 days which improved with Tylenol. This morning at 05:00 he woke up from sleep with chest pressure. There was no associated shortness of breath, diaphoresis, vomiting. Chest pressure has been constant. Not worsened with exertion. It has lessened since it 1st began. Patient denies any leg swelling, leg pain. No history of coronary artery disease that he is aware Related Data Home Medications ?Medication ?Instructions ?Recorded ?Confirmed amlodipine 10 mg tablet 10 mg PO DAILY 03/31/23 08/07/24 ascorbic acid (vitamin C) 500 mg 500 mg PO DAILY 03/31/23 08/07/24 tablet atorvastatin 20 mg tablet 20 mg PO DAILY 03/31/23 08/07/24 furosemide 40 mg tablet 40 mg PO DAILY 03/31/23 08/07/24 lisinopril 2.5 mg tablet 2.5 mg PO DAILY 03/31/23 08/07/24 sennosides 8.6 mg tablet (senna) 17.2 mg PO DAILY 03/31/23 08/07/24 tacrolimus 0.5 mg capsule, 0.5 mg PO BEDTIME 03/31/23 08/07/24 immediate-release cholecalciferol (vitamin D3) 25 25 mcg PO DAILY 04/13/23 08/07/24 mcg (1,000 unit) tablet multivitamin 1 tab PO DAILY 04/13/23 08/07/24 pen needle, diabetic 32 gauge x #1,200 ea 04/27/23 08/07/2432 (BD Loretta 2nd Gen Pen Needle) insulin glargine 100 unit/mL (3 10 unit subcut QPM 08/07/24 08/07/24 mL) subcutaneous pen (Basaglar KwikPen U-100 Insulin) tirzepatide 5 mg/0.5 mL 5 mg subcut QWEEK 08/07/24 08/07/24 subcutaneous pen injector (Mounjaro) Previous Rx's ?Medication ?Instructions ?Recorded lactulose 10 gram/15 mL oral See Rx Instructions .Route 04/02/23 solution .COMPLEX #3,000 mL apixaban 5 mg tablet (Eliquis) 5 mg PO BID 90 days #180 tabs 06/09/24 omeprazole 20 mg capsule,delayed 20 mg PO DAILY #90 caps 10/10/24 release amoxicillin 500 mg tablet 2,000 mg (4 x 500 mg) PO ONCE #4 11/01/24 tabs Allergies Allergy/AdvReac Type Severity Reaction Status Date / Time ibuprofen [IBUPROFEN] Allergy Severe SWELLING Verified 01/27/25 08:12 peanut [PEANUTS] Allergy Unknown SWELLING Verified 01/27/25 08:12 hydromorphone [From Dilaudid] Allergy Vomiting Verified 01/27/25 08:12 perflutren Allergy Back Pain Verified 01/27/25 08:12 prednisone Allergy Unknown Verified 01/27/25 08:12 Review of Systems Review of Systems: Yes all other systems are reviewed and are negative Constitutional: Constitutional: Reports no additional constitutional complaints, Denies body ache(s), Denies chills, Denies fever(s), Reports headache(s) and Denies weakness Eyes: Eyes: Reports no additional eye complaints and Denies change in vision ENT: Reports system reviewed and no additional complaints, except as documented, Denies dizziness, Reports headache(s), Denies nasal congestion, Denies nasal discharge and Denies neck pain Cardiovascular: Cardiovascular: Reports no additional cardiovascular complaints, Reports chest pain, Denies leg edema and Denies dyspnea Respiratory: Respiratory: Reports no additional respiratory complaints, Denies cough and Denies dyspnea Gastrointestinal: Gastrointestinal: Reports no additional gastrointestinal complaints, Denies abdominal pain, Reports diarrhea, Denies nausea and Denies vomiting Genitourinary: Genitourinary: Denies urinary incontinence Musculoskeletal: Musculoskeletal: Reports no additional musculoskeletal complaints, Denies back pain, Denies arthralgias, Denies joint swelling, Denies neck pain, Denies numbness and Denies tingling Integumentary/Breasts: Skin/Breast: Reports system reviewed and no additional complaints, except as docu and Denies rash Neurologic: Reports system reviewed and no additional complaints, except as documented, Denies Abnormal speech present, Denies dizziness, Reports headache(s), Denies numbness, Denies tingling and Denies weakness PMFSH Past Medical History Attestation statement: The following information was validated with the patient. Source: old records reviewed and nursing notes reviewed Medical History Obstructive sleep apnea hypopnea, severe Hypersomnia Cirrhosis MSSA bacteremia CKD (chronic kidney disease) stage 3, GFR 30-59 ml/min Staphylococcus aureus bacteremia Duodenal ulcer Anemia Acute diastolic (congestive) heart failure Non-rheumatic aortic stenosis PAF (paroxysmal atrial fibrillation) Osteomyelitis Aortic stenosis Duodenitis Hypertension Hypercholesteremia GERD (gastroesophageal reflux disease) Diabetes Fatty liver Gram-positive bacteremia Surgical History History of esophagogastroduodenoscopy (EGD) Liver transplant recipient S/P TAVR (transcatheter aortic valve replacement) Hx of lymph node excision History of back surgery Hx of colonoscopy Liver transplant recipient Family History Family History Mother Myocardial infarct Social History Social History Household Members: Family Housing: House Are you a primary care worker to a significant other at home: No Do you presently have visiting nurse or other home services: No Alcohol intake: never Patient Tobacco Use Status: Never used Tobacco Smoked in Last 30 Days: No Use of substances other than those prescribed or required for medical reasons: No Advance Directives: Yes Advance Directives on File: Yes Advance Directives Date on File: 05/19/22 service: No Current occupational status: retired Physical Exam Vital Signs: Vital Signs: Last Vital Signs Temp 98.0 F 01/27/25 10:07 Pulse 71 01/27/25 10:07 Resp 18 01/27/25 10:07 BP 134/64 01/27/25 10:07 Pulse Ox 100 01/27/25 10:07 O2 Del Method Room Air 01/27/25 10:07 BMI result Body Mass Index 36.4 Const: General: cooperative, healthy appearing, comfortable and no acute distress Orientation/consciousness: patient oriented x3 Limitations: no limitations HEENT: Head: Yes normal to inspection Ears: hearing grossly normal bilaterally General nose exam: Normal external nose present Face and sinus: Yes normal facial exam Mouth: Normal oral and palatal mucosa present Throat: Yes posterior oropharynx normal Eyes: General: appearance normal, both eyes and all related structures Pupils: Equal, round and reactive pupils present Neck: Neck: Yes normal visual inspection Chest: Chest palpation & inspection: normal inspection of the chest Resp: Effort & Inspection: normal respiratory effort Auscultation: clear to auscultation bilaterally Cardio: Rate: regular rate Rhythm: regular rhythm Peripheral pulses: Peripheral pulses 2+ throughout GI: Inspection: Yes normal to inspection Palpation (GI): Soft to palpation and nontender Auscultation: normal bowel sounds Back/Spine/Pelvis: Thoracic/Lumbar Spine: thoracic and lumbar spine normal to inspection Skin: General skin exam: no rashes or lesions noted Neuro: General: patient oriented x3, no focal motor deficits and normal sensation to monofilament Cranial nerves: Yes Equal, round and reactive pupils present Cognition (Neuro): normal cognition Speech: No Abnormal speech present Gait exam (Neuro): Normal gait present Motor exam (neuro): 5/5 motor strength present throughout Extrem: General: Yes normal to inspection, Yes no pedal edema and Yes no calf tenderness Course Course Course Narrative: 1322-Initial troponin 42.5, repeat 84.2. EKG is nonischemic appearing I did discuss the case with Dr. Colon from Cardiology. Symptoms are very atypical for ACS. I reexamined the patient. His chest pressure is now resolved. May be gastrointestinal in nature. Patient reports he has had some diarrhea for the last week as well as some bulging. He is on 20 mg of omeprazole daily. I will recommend he increase to [address] Colon and I discuss the patient further. He will follow up outpatient. No need for inpatient stay. I did review worrisome signs and symptoms of when to return to the emergency room. Comfortable plan for discharge home Medical Decision Making Medical Decision Making [facility] Narrative: This is a 74-year-old male who has a history of liver transplant secondary to ADKINS (TAMIKA), aortic valve replacement, afib on Eliquis, hypertension, hyperlipidemia, chronic kidney disease, diabetes, GERD presents to the ER with complaints of watery diarrhea for the last 1 week. Patient reports that he is having 5-6 episodes daily. He normally does take Colace, senna and lactulose but since developing diarrhea he has stopped these medications. There is some associated abdominal cramping just prior to having diarrhea. There is no reports of associated nausea, vomiting, fever. Patient denies bloody diarrhea. Patient denies any recent antibiotic use, recent travel, recent hospitalizations or sick contact. He denies any associated upper respiratory symptoms. He has had a mild headache for the last 3 days which improved with Tylenol. This morning at 05:00 he woke up from sleep with chest pressure. There was no associated shortness of breath, diaphoresis, vomiting. Chest pressure has been constant. Not worsened with exertion. It has lessened since it 1st began. Patient denies any leg swelling, leg pain. No history of coronary artery disease that he is aware. exam is benign. vitals are stable. will obtain labs, chest x-ray, EKG, stool studies Differential Diagnosis Differential Diagnoses: The differential diagnosis associated with the presentation includes ACS, PE, aortic dissection, GERD (doubt ACS with atypical symptoms for ACS, nonexertional nature, improving with time. Less likely PE as patient is compliant with his anticoagulation. He has no clinical findings for DVT. He has no hypoxia or tachypnea. 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 01/27/25 08:55 01/27/25 08:55 Labs: Lab Results 01/27/25 01/27/25 01/27/25 Range/Units 08:54 08:55 09:50 WBC 5.5 (4.8-10.8) X10*3/uL RBC 3.29 L (4.60-5.80) X10*6/uL Hgb 11.1 L (14.0-18.0) g/dl Hct 31.0 L (42.0-52.0) % MCV 94.2 (80.0-98.0) fL MCH 33.7 H (27.0-33.0) pg MCHC 35.8 (31.0-36.0) g/dl RDW 13.7 (11.0-16.0) % Plt Count 122 L (160-400) X10*3/uL MPV 9.2 L (9.4-12.4) fL Immature Gran % (Auto) 0.4 (0.0-0.4) % Neut % (Auto) 42.7 L (45-73) % Lymph % (Auto) 35.0 (20-40) % [place] % (Auto) 6.5 (2-11) % Eos % (Auto) 14.7 H (0-4) % Baso % (Auto) 0.7 (0-2) % Lymph # (Auto) 1.9 (1.2-4.9) X10*3/uL [place] # (Auto) 0.4 (0.1-1.2) X10*3/uL Eos # (Auto) 0.8 H (0.0-0.4) X10*3/uL Baso # (Auto) 0.0 (0.0-0.2) X10*3/uL Abs Immat Gran (auto) 0.02 (0.00-0.03) X10*3/uL Absolute Neuts (auto) 2.4 (2.0-8.3) x10*3/uL Absolute Nucleated RBC 0.000 (0.0-0.012) X10*3/uL Nucleated RBC % (auto) 0.0 (0.0-0.2) /100WBC Sodium 143 (135-145) mmol/L Potassium 4.3 (3.3-5.1) mmol/L Chloride 117 H (96-108) mmol/L Carbon Dioxide 15 L (22-29) mmol/L Anion Gap 15 (12-20) BUN 33 H (9-16) mg/dL Creatinine 2.13 H (0.5-1.4) mg/dL Estim Creat Clear Calc 28.5 Estimated GFR 31 Random Glucose 166 H (60-115) mg/dL Calcium 9.0 (8.4-10.2) mg/dL Magnesium 1.9 (1.6-2.6) mg/dL Total Bilirubin 0.6 (0.0-1.0) mg/dL AST 25 (5-37) U/L ALT 11 (0-40) U/L Alkaline Phosphatase 96 (39-117) U/L Troponin I High Sens 42.5 H (<3.5-35.0) ng/L B-Natriuretic Peptide 98 (<100) pg/mL Total Protein 6.3 L (6.5-8.0) g/dL Albumin 3.5 (3.5-5.0) g/dL Lipase 12 (8-78) U/L Stl C. cayetanensis PCR Not Detected (Not Detect.) Stool Rotavirus A PCR Not Detected (Not Detect.) Stl Adenov F 40/41 PCR Not Detected (Not Detect.) Stool Astrovirus (PCR) Not Detected (Not Detect.) Stool Campylobacter PCR Not Detected (Not Detect.) Stool Cryptosporidium PCR Not Detected (Not Detect.) Stl Sh Tox Pr E STEC PCR Not Detected (Not Detect.) Stool E coli O157 PCR Not applicable (Not Detect.) Stl Enterotoxigenic E PCR Not Detected (Not Detect.) Stool EPEC (PCR) Not Detected (Not Detect.) Stool EAEC (PCR) Not Detected (Not Detect.) Stl E. histolytica PCR Not Detected (Not Detect.) Stool Giardia Lamblia PCR Not Detected (Not Detect.) Stl P. shigelloides PCR Not Detected (Not Detect.) Stool Salmonella PCR Not Detected (Not Detect.) Stool Sapovirus (PCR) Not Detected (Not Detect.) Stl Shigella/EIEC PCR Not Detected (Not Detect.) St Y.enterocolitica PCR Not Detected (Not Detect.) Stool Vibrio (PCR) Not Detected (Not Detect.) Stl Vibrio cholerae PCR Not Detected (Not Detect.) Stl Norovirus GI/GII PCR Not Detected (Not Detect.) C. difficile Tox B Gene NEGATIVE (Negative) Influenza Type A (PCR) NEGATIVE (Negative) Influenza Type B (PCR) NEGATIVE (Negative) RSV RNA Qual (PCR) NEGATIVE (Negative) SARS-CoV-2 RNA (RT-PCR) NEGATIVE (Negative) 01/27/25 Range/Units 12:01 WBC (4.8-10.8) X10*3/uL RBC (4.60-5.80) X10*6/uL Hgb (14.0-18.0) g/dl Hct (42.0-52.0) % MCV (80.0-98.0) fL MCH (27.0-33.0) pg MCHC (31.0-36.0) g/dl RDW (11.0-16.0) % Plt Count (160-400) X10*3/uL MPV (9.4-12.4) fL Immature Gran % (Auto) (0.0-0.4) % Neut % (Auto) (45-73) % Lymph % (Auto) (20-40) % [place] % (Auto) (2-11) % Eos % (Auto) (0-4) % Baso % (Auto) (0-2) % Lymph # (Auto) (1.2-4.9) X10*3/uL [place] # (Auto) (0.1-1.2) X10*3/uL Eos # (Auto) (0.0-0.4) X10*3/uL Baso # (Auto) (0.0-0.2) X10*3/uL Abs Immat Gran (auto) (0.00-0.03) X10*3/uL Absolute Neuts (auto) (2.0-8.3) x10*3/uL Absolute Nucleated RBC (0.0-0.012) X10*3/uL Nucleated RBC % (auto) (0.0-0.2) /100WBC Sodium (135-145) mmol/L Potassium (3.3-5.1) mmol/L Chloride (96-108) mmol/L Carbon Dioxide (22-29) mmol/L Anion Gap (12-20) BUN (9-16) mg/dL Creatinine (0.5-1.4) mg/dL Estim Creat Clear Calc Estimated GFR Random Glucose (60-115) mg/dL Calcium (8.4-10.2) mg/dL Magnesium (1.6-2.6) mg/dL Total Bilirubin (0.0-1.0) mg/dL AST (5-37) U/L ALT (0-40) U/L Alkaline Phosphatase (39-117) U/L Troponin I High Sens 84.2 H D (<3.5-35.0) ng/L B-Natriuretic Peptide (<100) pg/mL Total Protein (6.5-8.0) g/dL Albumin (3.5-5.0) g/dL Lipase (8-78) U/L Stl C. cayetanensis PCR (Not Detect.) Stool Rotavirus A PCR (Not Detect.) Stl Adenov F 40/41 PCR (Not Detect.) Stool Astrovirus (PCR) (Not Detect.) Stool Campylobacter PCR (Not Detect.) Stool Cryptosporidium PCR (Not Detect.) Stl Sh Tox Pr E STEC PCR (Not Detect.) Stool E coli O157 PCR (Not Detect.) Stl Enterotoxigenic E PCR (Not Detect.) Stool EPEC (PCR) (Not Detect.) Stool EAEC (PCR) (Not Detect.) Stl E. histolytica PCR (Not Detect.) Stool Giardia Lamblia PCR (Not Detect.) Stl P. shigelloides PCR (Not Detect.) Stool Salmonella PCR (Not Detect.) Stool Sapovirus (PCR) (Not Detect.) Stl Shigella/EIEC PCR (Not Detect.) St Y.enterocolitica PCR (Not Detect.) Stool Vibrio (PCR) (Not Detect.) Stl Vibrio cholerae PCR (Not Detect.) Stl Norovirus GI/GII PCR (Not Detect.) C. difficile Tox B Gene (Negative) Influenza Type A (PCR) (Negative) Influenza Type B (PCR) (Negative) RSV RNA Qual (PCR) (Negative) SARS-CoV-2 RNA (RT-PCR) (Negative) Independent Interpretation I performed an independent interpretation of an: EKG and Plain X-Ray Interpretation: I independently reviewed the EKG which shows normal sinus rhythm with a rate 81, normal [place], left bundle branch block On previous EKG July 2024 patient had a wide QRS complex with nonspecific I independently viewed the x-ray and agree with the radiology report Radiology Impression Discussion of test interpretation with radiology: I have reviewed the radiologist's reading. Radiologist Impression: [address] [id number] XRay Report Signed Patient: Boaz Padilla MR#: [id number] : 1950 Acct:[id number] Age/Sex: 74 / M ADM Date: 01/27/25 Loc: HO.ED Attending Dr: Ordering Physician: Dawna Tang NP Date of Service: 01/27/25 Procedure(s): XR chest 2V Accession Number(s): [id number] cc: Dawna Tang NP; Juan Carlos Freeman MD~ CLINICAL HISTORY: cp 2 view chest x-ray Comparison: 04/01/2023 Findings: Mild right lower lobe bandlike atelectasis. No lung infiltrate. Status post cardiac valve replacement as before. No acute fracture. IMPRESSION: 1. No acute findings. This document has been electronically signed by: Edie Garcia MD on 01/27/2025 09:09:24 Independent Historian Clinical information obtained from an independent historian. History obtained from or confirmed by: Spouse Discharge Plan Discharge Clinical Impression: Chest pain, Diarrhea Patient Disposition: Home, Self-Care Instructions: Chest Pain (ED), Acute Diarrhea (ED) Additional Instructions: Increase your omeprazole to 40 mg daily Follow-up outpatient with your analog ic design engineer Return to the emergency room for any worsening symptoms Prescriptions: No Action Eliquis 5 mg tablet 5 mg PO BID 90 Days Qty: 180 3RF omeprazole 20 mg capsule,delayed release(DR/EC) 20 mg PO DAILY Qty: 90 2RF amoxicillin 500 mg tablet 2,000 mg PO ONCE Qty: 4 0RF Rx Instructions: TAKE 4 TABS, 1 HOUR BEFORE THE PROCEDURE cholecalciferol (vitamin D3) 25 mcg (1,000 unit) Tablet 25 mcg PO DAILY multivitamin Tablet 1 tab PO DAILY furosemide 40 mg tablet 40 mg PO DAILY atorvastatin 20 mg tablet 20 mg PO DAILY amlodipine 10 mg tablet 10 mg PO DAILY lisinopril 2.5 mg tablet 2.5 mg PO DAILY tacrolimus 0.5 mg capsule 0.5 mg PO BEDTIME sennosides [senna] 8.6 mg Tablet 17.2 mg PO DAILY ascorbic acid (vitamin C) 500 mg Tablet 500 mg PO DAILY lactulose 10 gram/15 mL solution See Rx Instructions .ROUTE .COMPLEX Qty: 3000 0RF Rx Instructions: 30 mL orally 3-4 times a day; adjust to achieve 3-4 soft bowel movements daily (DME) pen needle, diabetic [BD Loretta 2nd Gen Pen Needle] 32 gauge x 5/32 needle See Rx Instructions .ROUTE DAILY Qty: 1200 Rx Instructions: As directed insulin glargine [Basaglar KwikPen U-100 Insulin] 100 unit/mL (3 mL) insulin pen 10 unit subcut QPM Mounjaro 5 mg/0.5 mL pen injector 5 mg subcut QWEEK Referrals: Juan Carlos Freeman MD [Primary Care Provider] - 1 week Gabino Palacios MD [Physician] - 1 week Print Language: Mongolian
[2025-01-27 09:04] LABS: MANUAL DIFF FLAG NO
[2025-01-27 09:06] LABS: Basophils Percent Auto 0.7 % (0-2); Eosinophils Absolute Auto 0.8 X10*3/uL (0.0-0.4); Eosinophils Percent Auto 14.7 % (0-4); Hemoglobin 11.1 g/dl (14.0-18.0); Imm Gran Abs Auto 0.02 X10*3/uL (0.00-0.03); Imm Gran Pct Auto 0.4 % (0.0-0.4); Lymphocytes Absolute Auto 1.9 X10*3/uL (1.2-4.9); Mean Corpuscular HGB Conc 35.8 g/dl (31.0-36.0); Mean Corpuscular Hemoglobin 33.7 pg (27.0-33.0); Mean Corpuscular Volume 94.2 fL (80.0-98.0); Mean Platelet Volume 9.2 fL (9.4-12.4); Monocytes Absolute Auto 0.4 X10*3/uL (0.1-1.2); Monocytes Percent Auto 6.5 % (2-11); Neutrophils Absolute Auto 2.4 x10*3/uL (2.0-8.3); Neutrophils Percent Auto 42.7 % (45-73); Platelet Count 122 X10*3/uL (160-400); Red Blood Count 3.29 X10*6/uL (4.60-5.80); Red Cell Distribution Width 13.7 % (11.0-16.0); White Blood Count 5.5 X10*3/uL (4.8-10.8)
[2025-01-27 09:21] LABS: Lipase 12 U/L (8-78); Magnesium 1.9 mg/dL (1.6-2.6)
[2025-01-27 09:22] LABS: Alanine Aminotransferase 11 U/L (0-40); Albumin Level 3.5 g/dL (3.5-5.0); Alkaline Phosphatase 96 U/L (39-117); Anion Gap 15 (12-20); Aspartate Amino Transferase 25 U/L (5-37); Bilirubin Total 0.6 mg/dL (0.0-1.0); Blood Urea Nitrogen 33 mg/dL (9-16); Carbon Dioxide 15 mmol/L (22-29); Chloride 117 mmol/L (96-108); Creatinine Clr Calc Pharmacy 28.5; Estimated Glomerular Filt Rate 31; Glucose Random 166 mg/dL (60-115); Potassium 4.3 mmol/L (3.3-5.1); Sodium 143 mmol/L (135-145); Total Protein 6.3 g/dL (6.5-8.0)
[2025-01-27 09:27] LABS: B Type Natriuretic Peptide 98 pg/mL (<100)
[2025-01-27 09:30] LABS: Troponin-I High Sensitivity 42.5 ng/L (<3.5-35.0)
[2025-01-27 09:44] LABS: Influenza A PCR NEGATIVE (Negative); Influenza B PCR NEGATIVE (Negative); Resp Syncy Virus RNA Qual PCR NEGATIVE (Negative); SARS COV2 PCR INHOUSE NEGATIVE (Negative)
[2025-01-27 10:07] VITALS: BP 134/64; PULSE 71; RESP 18; TEMP 36.7; O2SAT 100
[2025-01-27 12:05] LABS: CDiff Gene PCR NEGATIVE (Negative)
[2025-01-27 12:22] LABS: Adenovirus F 40/41 Not Detected (Not Detect.); Astrovirus Not Detected (Not Detect.); Campylobacter Not Detected (Not Detect.); Cryptosporidium Not Detected (Not Detect.); Cyclospora cayetanensis Not Detected (Not Detect.); E. coli EAEC Not Detected (Not Detect.); E. coli EPEC Not Detected (Not Detect.); E. coli ETEC Not Detected (Not Detect.); E. coli STEC Not Detected (Not Detect.); Entamoeba histolytica Not Detected (Not Detect.); Giardia lamblia Not Detected (Not Detect.); Norovirus GI/GII Not Detected (Not Detect.); Plesiomonas shigelloides Not Detected (Not Detect.); Rotavirus A Not Detected (Not Detect.); Salmonella Not Detected (Not Detect.); Sapovirus Not Detected (Not Detect.); Shigella sp./EIEC Not Detected (Not Detect.); Vibrio Not Detected (Not Detect.); Vibrio Cholerae Not Detected (Not Detect.); Yersinia enterocolitica Not Detected (Not Detect.)
[2025-01-27 12:33] LABS: Troponin-I High Sensitivity 84.2 ng/L (<3.5-35.0)
[2025-01-27 13:26] VITALS: BP 138/82; PULSE 72; RESP 16; TEMP 36.7; O2SAT 100
== END 2025-01-27 13:30 | disposition home or self-care (01) ==
PROVIDERS: Nurse Practitioner Family; Emergency Provider Emergency Medicine; PCP Internal Medicine
DX: R07.9 Chest pain, unspecified (principal); R19.7 Diarrhea, unspecified; Z03.818 Encounter for observation for suspected exposure to other biological agents ruled out; E11.22 Type 2 diabetes mellitus with diabetic chronic kidney disease; I13.0 Hypertensive heart and chronic kidney disease with heart failure and stage 1 through stage 4 chronic kidney disease, or unspecified chronic kidney disease; N18.4 Chronic kidney disease, stage 4 (severe); I50.31 Acute diastolic (congestive) heart failure; I48.0 Paroxysmal atrial fibrillation; Z94.4 Liver transplant status; Z79.01 Long term (current) use of anticoagulants; Z79.02 Long term (current) use of antithrombotics/antiplatelets; Z79.899 Other long term (current) drug therapy; Z79.4 Long term (current) use of insulin
CPT/HCPCS: 0241U; 36415; 71046; 80053; 83690; 83735; 83880; 84484; 85025; 87493; 87507; 93005; 99283; 99285

== ENCOUNTER → 2025-01-27 08:13 | Outpatient (BNV) | payer MEDICARE, SELFPAY | PROVIDERS: Emergency Provider Emergency Medicine; PCP Internal Medicine; Visit Provider Internal Medicine Cardiovascular Disease | DX: I44.7 Left bundle-branch block, unspecified (principal) | CPT/HCPCS: 93010 ==

== ENCOUNTER → 2025-01-27 08:22 | Outpatient (BNV) | payer MEDICARE, SELFPAY | PROVIDERS: Emergency Provider Emergency Medicine; PCP Internal Medicine; Visit Provider Radiology Diagnostic Radiology | DX: R07.9 Chest pain, unspecified (principal) | CPT/HCPCS: 71046 ==

== ENCOUNTER 2025-02-06 08:33 | Outpatient (AMB) | payer MEDICARE, SELFPAY ==
--- NOTE | 2025-02-06 08:43 | A.OFFVIS_ITS ---
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 Required: No Accompanied by: Spouse Allergies ibuprofen [IBUPROFEN] Allergy (Severe, Verified 01/27/25 08:12) SWELLING peanut [PEANUTS] Allergy (Unknown, Verified 01/27/25 08:12) SWELLING hydromorphone [From Dilaudid] Allergy (Verified 01/27/25 08:12) Vomiting perflutren Allergy (Verified 01/27/25 08:12) Back Pain prednisone Allergy (Verified 01/27/25 08:12) Unknown Medication List - Last Reconciled 02/06/25 by Gabino Palacios MD amlodipine 10 mg PO DAILY amoxicillin 2,000 mg (4 x 500 mg) PO ONCE apixaban (Eliquis) 5 mg PO BID 90 days ascorbic acid (vitamin C) 500 mg PO DAILY atorvastatin 20 mg PO DAILY cholecalciferol (vitamin D3) 25 mcg PO DAILY furosemide 40 mg PO DAILY glipizide 5 mg PO DAILY lactulose 30 mL orally 3-4 times a day; adjust to achieve 3-4 soft bowel movements daily lisinopril 2.5 mg PO DAILY multivitamin 1 tab PO DAILY omeprazole 20 mg PO DAILY pen needle, diabetic (BD Loretta 2nd Gen Pen Needle) As directed sennosides (senna) 17.2 mg PO DAILY tacrolimus 0.5 mg PO BEDTIME tirzepatide (Mounjaro) 5 mg subcut QWEEK HPI Comments Details: Boaz returns for follow-up. Due to congestive heart failure, he underwent transcatheter aortic valve replacement. More or less, he is about the same as before. Recently in the ER for diarrhea for about a week. In that setting, he had seems he had chest pressure. EKG had shown left bundle-branch block and troponins were slightly elevated. However, upon discussion with on-call receiving team member, it was felt nothing needed to be done and he was discharged home. He now states he is feeling good. He is back to his usual activities like mowing lawns extra feels fine. No cardiac symptoms whatsoever. Exercise The patient engages in regular physical activities including mowing the lawn. He is able to perform these activities without the recurrence of symptoms, indicating good exercise tolerance. [facility]LY [facility] Medical History Obstructive sleep apnea hypopnea, severe Hypersomnia Cirrhosis MSSA bacteremia CKD (chronic kidney disease) stage 3, GFR 30-59 ml/min Staphylococcus aureus bacteremia Duodenal ulcer Anemia Acute diastolic (congestive) heart failure Non-rheumatic aortic stenosis PAF (paroxysmal atrial fibrillation) Osteomyelitis Aortic stenosis Duodenitis Hypertension Hypercholesteremia GERD (gastroesophageal reflux disease) Diabetes Fatty liver Gram-positive bacteremia Surgical History History of esophagogastroduodenoscopy (EGD) Liver transplant recipient S/P TAVR (transcatheter aortic valve replacement) Hx of lymph node excision History of back surgery Hx of colonoscopy Liver transplant recipient Family History Mother Myocardial infarct Social History Household Members: Family Housing: House Are you a primary cattle care worker to a significant other at home: No Do you presently have visiting nurse or other home services: No Alcohol intake: never Patient Tobacco Use Status: Never used Tobacco Advance Directives Date on File: 05/19/22 service: No Current occupational status: retired Review of Systems Const Denies chills, Denies fatigue, Denies fever(s), Denies frequent falls, Denies weakness, Denies weight gain and Denies weight loss ENT Denies dizziness Card Denies chest pain, Denies leg edema, Denies lightheadedness, Denies palpitations, Denies dyspnea and Denies dyspnea on exertion Resp Denies cough, Denies dyspnea and Denies dyspnea on exertion GI Denies hematochezia Musc Denies abnormal gait, Denies muscle weakness, Denies numbness, Denies radiating pain into limb and Denies tingling Neuro Denies abnormal gait, Denies dizziness, Denies frequent falls, Denies numbness, Denies tingling and Denies weakness Endo Denies fatigue and Denies palpitations Physical Exam Vital Signs: Last Vital Signs Pulse 86 02/06/25 08:45 BP 110/60 02/06/25 08:45 BMI result Body Mass Index 37.4 Const General: comfortable and no acute distress Orientation/consciousness: patient oriented x3 HEENT Other: Unremarkable Head: Yes normal to inspection Neck Neck: Yes normal visual inspection Chest Chest palpation & inspection: normal inspection of the chest Resp Auscultation: clear to auscultation bilaterally Cardio Palpation: normal PMI Heart sounds: S1 normal heart sound present, S2 normal heart sound present, no gallops, no murmurs and no rubs GI Palpation (GI): Soft to palpation Back/Spine/Pelvis Other: unremarkable Skin General skin exam: no rashes or lesions noted Neuro General: patient oriented x3 Extrem General: Yes normal to inspection Psych Mental Status: mental status grossly normal Assessment & Plan Assessment & Plan (1) Status post transcatheter aortic valve replacement (TAVR) using bioprosthesis: Code(s): Z95.3 - Presence of xenogenic heart valve Category: Surgical Plan: Normal function on last echocardiogram. Infective endocarditis prophylaxis per protocol. (2) Chronic heart failure with preserved ejection fraction: Code(s): I50.32 - Chronic diastolic (congestive) heart failure Category: Medical Plan: Stable. No changes. (3) Left bundle branch block: Code(s): I44.7 - Left bundle-branch block, unspecified Category: Medical Plan: EKG from the recently our visit shows left bundle-branch block. Seems to be new finding. Borderline troponin leak. However, echocardiogram just a couple of days prior to that shows normal cardiac function. He has got no cardiac symptoms at this time and with normal exercise tolerance. Hence we will just monitor him. Discussed about this with patient and and they agree. Cardiac catheterization 2021-normal left main/LAD. Minimal irregularities in circumflex/RCA. This is reassuring. (4) PAF (paroxysmal atrial fibrillation): Code(s): I48.0 - Paroxysmal atrial fibrillation Category: Medical Plan: Continue Eliquis. Off aspirin. (5) Gastrointestinal bleed: Code(s): K92.2 - Gastrointestinal hemorrhage, unspecified Category: Medical Plan: EGD- stomach and duodenal ulcers. On omeprazole. (6) Liver transplant recipient: Code(s): Z94.4 - Liver transplant status Category: Surgical Plan: Continue transplant meds. Plan Discussion Notes The patient and I reviewed the results and implications of diagnostic eval uations completed previously as well as during ER visit for the gastrointestinal episode/chest pressure. Testing, including EKG and cardiac biomarkers. Given the patient's return to normal functional levels and absence of symptoms, we agreed on the plan for regular monitoring and a reevaluation visit in three months unless new symptoms develop sooner. The patient is comfortable with the low likelihood of coronary disease, given the unremarkable prior cardiac catheterization and examinations from recent hospitalizations. Discussed with significant other. Patient was informed and verbally consented to the use of an ambient scribe for clinic note documentation during this visit. Patient Instructions: - Continue with normal activities as tolerated. - Monitor for any reoccurrence of chest discomfort or symptoms. - Maintain regular follow-up appointment in three months. - Seek immediate care for severe or unexpected symptoms, such as new chest pain, not previously discussed. - Contact the doctor if experiencing any significant changes in health or symptoms. Coding Level of Care Code Est Pt Level 4 (85217) Complex EM visit Add On G2211 Diagnoses Status post transcatheter aortic valve replacement (TAVR) using bioprosthesis Z95.3 Chronic heart failure with preserved ejection fraction I50.32 Left bundle branch block I44.7 PAF (paroxysmal atrial fibrillation) I48.0 Gastrointestinal bleed K92.2 Liver transplant recipient Z94.4
[2025-02-06 08:45] VITALS: BP 110/60; PULSE 86; BMI 37.4
--- OUTSIDE RECORDS SUMMARY | 2025-02-06 08:51 | XMS_ITS | Clinical Summary ---
Author Organization [facility] Facility Address [address] [place] [id number] Care Team Providers Care Solar Water Heater Installer Name Role Phone Unavailable Primary Care Provider [...] Office Visit [facility] [address] [place] [address] Lexx Ramirez MD Stage 3b chronic kidney disease (HCC) (Primary Dx); Renal osteodystrophy; Anemia in chronic kidney disease 12/19/2024 Orders Only [facility] [address] [place] [address] Lexx Ramirez MD from Last 3 [...] Visit [facility] [address] [place] [address] Lexx Ramirez MD [address] [facility] [address] [place] [address] 12/24/2025 3:30 PM EDT Office Visit [facility] [address] [place] [phone] Lexx Ramirez MD [address] [facility] [address] [place] [address] Health Maintenance Due Date Last [...] MD LAB URINE ORDERABLES Final Re sult [place] See order comments [place] [address] * Albumin, urine, random (12/19/2024 2:41 PM [...] ORDERABLES Final Re sult Performing Organization Address [facility] Co de Phone Number [place] See order comments [place] [address] * (ABNORMAL) Urinalysis with microscopic (12/19/2024 2:41 PM EDT) Color Urine Yellow See orde r comments Appearance Urine Clear See order comments pH Urine 5.5 5.0 - 9.0 See order comments Glucose Urine Negative Negative mg/dL See order comments Blood, Urine Negative Negative See ord er comments Specific [place] Urine 1.020 1.005 - 1.025 See order [...] ORDERABLES Final Re sult Performing Organization Address [facility] Co de Phone Number [place] See order comments [place] [address] * (ABNORMAL) Creatinine (12/19/2024 10:53 AM EDT) Creatinine Serum 2.09(H) 0.5 - 1.4 mg/dL See order comments eGFR (Calc) 31 See orde r comments Comment: Chronic Kidney Disease: ??Estimated GFR < 60 mL/min/1.73m2 Severe Kidney Disease: ??Estimated GFR < 15 mL/min/1.73m2 12/19/2024 10:5 3 AM EDT 12/19/2024 10:53 AM EDT us Lexx Ramirez MD LAB BLOOD ORDERABLES Final Re sult Performing Organization Address [facility] Co de Phone Number [place] See order comments [place] [address] * (ABNORMAL) PTH, Intact (12/19/2024 10:53 AM EDT) Parathyroid Hormone, Intact 88.7(H) 8.7 - 77.1 pg/mL See order comments 12/19/2024 10:5 3 AM EDT 12/19/2024 10:53 AM EDT us Lexx Ramirez MD LAB [id number] SOLICITED RESULTS Final Result Performing Organization Address [facility] de Phone Number [place] See order comments [place] [address] * Vitamin D 25 Hydroxy (12/19/2024 10:53 [...] MD LAB BLOOD ORDERABLES Final Re sult [place] See order comments [place] [address] * (ABNORMAL) CBC and Differential (12/19/2024 10:53 [...] ORDERABLES Final Re sult Performing Organization Address [facility] Phone Number [place] See order comments [place] [address] * (ABNORMAL) BUN (12/19/2024 10:53 AM EDT) BUN 31(H) 9 - 16 mg/dL See order comments 12/19/2024 10:5 3 AM EDT 12/19/2024 10:53 AM EDT us Lexx Ramirez MD LAB BLOOD ORDERABLES Final Re sult Performing Organization Address [facility] Phone Number [place] See order comments [place] [address] * Phosphorus (12/19/2024 10:53 AM EDT) Phosphorus, Serum 3.2 2.7 - 4.5 mg/dL See order comments 12/19/2024 10:5 3 AM EDT 12/19/2024 10:53 AM EDT us Lexx Ramirez MD LAB BLOOD ORDERABLES Final Re sult Performing Organization Address [facility] Phone Number [place] See order comments [place] [address] * Magnesium (12/19/2024 10:53 AM EDT) Magnesium 2.1 1.6 - 2.6 mg/dL See order comments 12/19/2024 10:5 3 AM EDT 12/19/2024 10:53 AM EDT us Lexx Ramirez MD LAB BLOOD ORDERABLES Final Re sult Performing Organization Address [facility] Phone Number [place] See order comments [place] [address] * Calcium (12/19/2024 10:53 AM EDT) Calcium 9.3 8.4 - 10.2 mg/dL See order comments 12/19/2024 10:5 3 AM EDT 12/19/2024 10:53 AM EDT Lexx Ramirez MD LAB BLOOD ORDERABLES Final Re sult Performing Organization Address [facility] Phone Number [place] See order comments [place] [address] * Albumin (12/19/2024 10:53 AM EDT) Albumin 3.8 3.5 - 5.0 g/dL See order comments 12/19/2024 10:5 3 AM EDT 12/19/2024 10:53 AM EDT us Lexx Ramirez MD LAB BLOOD ORDERABLES Final Re sult Performing Organization Address [facility] Phone Number [place] See order comments [place] [address] * (ABNORMAL) Electrolyte panel (12/19/2024 10:53 AM [...] ORDERABLES Final Re sult Performing Organization Address [facility] de Phone Number [place] See order comments [place] [address] from Last 3 Months Insurance Medicare [facility] Medicare [facility]
--- OUTSIDE RECORDS SUMMARY | 2025-02-06 08:51 | XMS_ITS | Clinical Summary ---
Author Organization [facility] [address] [place] [address] [place] [phone] Phone Care Team Providers Care Employment Adjudicator Name Role Phone Juan Carlos Freeman MD [...] 07/26/2024 Iron deficiency anemia 08/16/2023 Atrial fibrillation ([facility]/HCC V24, CMS/HCC V28) 0 03/25/2023 Congestive heart failure ([facility]/HCC V24, [facility] V 28) 03/25/2023 Elevated serum creatinine 02/09/2023 Hyperammonemia (CMS/HCC V24) 02/09/2023 Neutropenia (CMS/HCC V24) 02/09/2023 S/P TAVR (transcatheter aortic valve replacement ) 02/09/2023 Anemia in chronic kidney disease 09/03/2022 Stage 4 chronic kidney disease (CMS/HCC V24, CMS /HCC V28) 09/03/2022 Renal osteodystrophy 09/03/2022 Ulcer of lower extremity (CMS/[facility] V24, CMS/[facility] V 28) 09/03/2022 Anemia 08/03/2022 Ascites 08/03/2022 Acute nontraumatic kidney injury ([facility] V24) 1 10/03/2021 Disorder of brain 08/03/2022 End stage liver disease ([facility] V24, [facility] V2 8) 08/03/2022 Hepatic encephalopathy ([facility] V24, [facility] V28 ) 08/03/2022 Non-pressure chronic ulcer o f unspecified part of right lower leg limited to breakdown of skin ([facility] V24, [facility] V28) 08/03/2022 Obesity 08/03/2022 Type 2 diabetes mellitus wit hout complication ([facility] V24, [facility] V28) 08/03/2022 Osteomyelitis ([facility] V24, [facility] V28) 022 Gastritis 06/08/2022 Overview (09/01/2024): Seen on endoscopy at [facility] [place] 06/06[place]. Ulcer, duodenum peptic 06/08/2022 Overview (09/01/2024): Seen on endoscopy at [facility] on 06/06/22. CKD (chronic kidney disease) stage 3, GFR 30-59 ml/min ([facility] V24, [facility] V28) 04/19/2020 Essential hypertension 02/25/2018 History of liver transplant ([facility] V24, [facility] V28) 08/24/2017 Type 2 diabetes mellitus wit h stage 4 chronic kidney disease, without long-term current use of insulin ([facility] V24, [facility] V28) 08/24/2017 Vertebral osteomyelitis ([facility] V24, [facility] V2 8) 06/12/2017 Hyperlipidemia 05/10/2017 Overview (09/01/2024): Last Assessment & Plan: LDL 96 and liver function was normal today. Will continue atorvastatin 20 mg daily. Aortic valve stenosis 02/25/2017 Intra-abdominal varices 01/09/2014 Watermelon stomach 01/09/2014 Gallstones 10/12/2013 Portal hypertension ([facility] V24, [facility] V28) 0 10/12/2013 Gilbert's syndrome 12/22/2012 Overview (09/01/2024): [facility] note 06/15/2012. Calculus of kidney 10/20/2011 Overview (09/01/2024): Nephrolithiasis Cirrhosis ([facility] V24, [facility] V28) 02/12/2010 Encounters Date Type Department Care Team Description 12/22/2024 9:30 AM EDT Office Visit [facility] [address] [address] Juan Carlos Freeman MD Osteoporosis, unspecified osteoporosis type, unspecified pathological fracture presence (Primary Dx); Hyperlipidemia, unspecified hyperlipidemia type; Class 2 severe obesity due to excess calories with serious comorbidity and body mass index (BMI) of 36.0 to 36.9 in adult ([facility] V24, [facility] V28) 11/27/2024 9:58 AM EST - 11/27/2024 11:59 PM EST Hospital Encounter [facility] - [address] [address] Screening for osteoporosis Discharge Disposition: Home or Self Care from Last 3 Months Immunizations Name Administration Dates Next Due Hepatitis A-Hepatitis B Adul t (Twinrix) 18yo and older 06/11/2010,12/05/2009,11/07/2009 Hepatitis B (Hvytykl-N-Kupxy , Recombivax HB-Adult) 19yo and older 09/03/2015,04/03/2015,03/01/2015,03/01 [...] repeat in ten years ESOPHAGOGASTRODUODENOSCOPY 10/17/09 PROCEDURE: [place] ESOPHAGOGASTRODUODENOSCOPY TRANSORAL DIAGNOSTIC; COMMENT: normal, without varices; repeat in two years ESOPHAGOGASTRODUODENOSCOPY 09/18/11 PROCEDURE: [place] ESOPHAGOGASTRODUODENOSCOPY TRANSORAL DIAGNOSTIC; COMMENT: normal, without varices; repeat in two years ESOPHAGOGASTRODUODENOSCOPY 01/09/14 PROCEDURE: [place] ESOPHAGOGASTRODUODENOSCOPY TRANSORAL DIAGNOSTIC; COMMENT: No esophageal varices; [...] duodenum peptic; COMMENT: Seen on endoscopy at [facility] on 06/06/22. Gastritis 06/08/2022 DX:Gastritis; CO MMENT: Seen on endoscopy at [facility] on 06/06/22. Family History Medical History Relation [...] for your loved ones. For example, child care lead teacher or elderly care for an older adult? [...] 9:30 AM EDT Office Visit Adult [facility] [address] [place] [address] Juan Carlos Freeman MD [address] [place] [address] Health Maintenance Due Date Last Done Comments [...] Signed Date: 11/27/2024 20:11 ET Workstation ID: [id number] Transcribed By: Self Edit Transcribed Date: 11/27/2024 20:10 ET Narrative 11/27/2024 8:11 PM EST Clinical history: Osteoporosis Scans of the lumbar spine and hips were performed on a [employer] fan beam bone densitometer. ? Bone mineral [...] spine and hips were performed on a [employer] beam bone densitometer. Bone mineral density measurements [...] Signed Date: 11/27/2024 20:11 ET Workstation ID: [id number] Transcribed By: Self Edit Transcribed Date: 11/27/2024 20:10 ET Juan Carlos Freeman MD IMG DXA PROCEDURES Final Re sult * External Dexa Report (11/27/2024) Anatomical Region Laterality Modality Bone Densitometr y Provider [facility] IMG DXA PROCEDURES Final Result from Last 3 Months Insurance MEDICARE [facility] Care Teams Employment Adjudicator Relationship Specialty Start Date End Date Juan Carlos Freeman MD [address] [place] [address] PCP - General 07/30/22
== END 2025-02-06 09:00 | disposition home or self-care (01) ==
LOC: HO.HCS 08:34
PROVIDERS: PCP Internal Medicine; Visit Provider Internal Medicine
DX: Z95.3 Presence of xenogenic heart valve (principal); I50.32 Chronic diastolic (congestive) heart failure; I44.7 Left bundle-branch block, unspecified; I48.0 Paroxysmal atrial fibrillation; K92.2 Gastrointestinal hemorrhage, unspecified; Z94.4 Liver transplant status
CPT/HCPCS: 99214; G2211

== ENCOUNTER → 2025-02-06 08:33 | Outpatient (BNVA) | payer MEDICARE, SELFPAY | PROVIDERS: PCP Internal Medicine; Visit Provider Internal Medicine | DX: I50.32 Chronic diastolic (congestive) heart failure (principal); I44.7 Left bundle-branch block, unspecified; I48.0 Paroxysmal atrial fibrillation; K92.2 Gastrointestinal hemorrhage, unspecified; Z95.3 Presence of xenogenic heart valve; Z94.4 Liver transplant status | CPT/HCPCS: 99212 ==

== ENCOUNTER 2025-02-28 11:19 | Outpatient (AMB) | payer MEDICARE, SELFPAY ==
[2025-02-28 11:20] VITALS: BP 110/64; BMI 35.7
--- NOTE | 2025-02-28 11:20 | MHC.OFFVIS ---
Vital Signs 02/28/25 11:20 Height 5 ft 1 in Weight 189 lb BMI 35.7 BP 110/64 Blood Pressure Location Rt brachial Position Sitting Intake Visit Reasons: 6 mo follow up Intake Note: Patient following up sleep apnea. compliance report scanned 02/07/25 Allergies ibuprofen [IBUPROFEN] Allergy (Severe, Verified 02/28/25 11:21) SWELLING peanut [PEANUTS] Allergy (Unknown, Verified 02/28/25 11:21) SWELLING hydromorphone [From Dilaudid] Allergy (Verified 02/28/25 11:21) Vomiting perflutren Allergy (Verified 02/28/25 11:21) Back Pain prednisone Allergy (Verified 02/28/25 11:21) Unknown HPI Comments Details: 74y/o male comes for follow up. Home sleep test 04/2024 AHI 7 O2 cachorro 78% he was started on AutoPAP and is compliant .He is sleeping better and longer with CPAP. His daytime sleepiness is better. He does not take regular daytime naps. His compliance is 99 % with residual AHI was 1 . Median pressure used 11 . He has h/o liver failure , hepatic encephelopathy and liver transplant in 2017 . he has been doing well but he had a few episodes of increased ammonia related to leak from his shunt . He usually respond to lactulose. His last episode was 1 year ago.During these episodes he is confused , slow, tremors etc He is here to see if he has any residual effects from hyperammonemia. 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 [facility] Medical History Obstructive sleep apnea hypopnea, severe Hypersomnia Cirrhosis MSSA bacteremia CKD (chronic kidney disease) stage 3, GFR 30-59 ml/min Staphylococcus aureus bacteremia Duodenal ulcer Anemia Acute diastolic (congestive) heart failure Non-rheumatic aortic stenosis PAF (paroxysmal atrial fibrillation) Osteomyelitis Aortic stenosis Duodenitis Hypertension Hypercholesteremia GERD (gastroesophageal reflux disease) Diabetes Fatty liver Gram-positive bacteremia Surgical History History of esophagogastroduodenoscopy (EGD) Liver transplant recipient S/P TAVR (transcatheter aortic valve replacement) Hx of lymph node excision History of back surgery Hx of colonoscopy Liver transplant recipient Family History Mother Myocardial infarct Social History Household Members: Family Housing: House Are you a primary healthcare manager to a significant other at home: No Do you presently have visiting nurse or other home services: No Alcohol intake: never Patient Tobacco Use Status: Never used Tobacco Advance Directives Date on File: 05/19/22 service: No Current occupational status: retired Physical Exam Vital Signs: Last Vital Signs BP 110/64 02/28/25 11:20 BMI result Body Mass Index 35.7 Const Other: MOCA / General: cooperative, healthy appearing and comfortable Nutritional Appearance: obese Orientation/consciousness: patient oriented x3 Limitations: no limitations Eyes Pupils: Equal, round and reactive pupils present Neuro General: patient oriented x3, tone normal, moves all extremities and no focal motor deficits Cranial nerves: Yes Facial sensation intact/muscles of mastication intact, Yes Equal, round and reactive pupils present, Yes Bilaterally intact EOM present, Yes Nystagmus not present, Yes Normal facial strength present, Yes Midline tongue present, Yes Symmetric palate elevation present and Yes Ability to bilaterally elevate shoulders present Gait exam (Neuro): Antalgic gait present Motor exam (neuro): 5/5 motor strength present throughout and Normal motor muscle tone present throughout Orientation What is the (year) (season) (date) (day) (month)?: year, season, date, day and month Where are we (state) (county) (town or city) (hospital) (floor)?: state, county, town or city, hospital/clinic and floor Registration Name of 3 unrelated objects clearly and slowly, then ask patient to repeat all 3 of them. (1st repeat determines score. Make sure they can repeat all three): object 1, object 2 and object 3 Attention & Calculation (CHOOSE ONE) Spell WORLD backwards (DLROW): 3 letters Recall Ask patient to repeat the 3 items from question #3.: object 1 Language Show patient a wristwatch & ask what it is. Repeat for pencil.: watch and pencil Ask the patient to repeat the phrase 'No ifs, ands, or buts' after you.: correct Ask the patient to 'take a piece of paper with their right hand' 'fold paper in half' 'place paper on floor': take paper in right hand and fold paper in half Print the sentence 'CLOSE YOUR EYES' on a piece. If patient actually closes eyes then score.: followed written direction Give patient a blank piece of paper & ask to write a sentence. Score if it contains a noun & verb.: sentence contains subject and verb Score Score: 24 Assessment & Plan Assessment & Plan (1) Obstructive sleep apnea hypopnea, severe: Code(s): G47.33 - Obstructive sleep apnea (adult) (pediatric) Category: Medical (2) Hepatic encephalopathy: Comment: h/o hepatic encephalopathy with delirium relate dto hyperammonemia Code(s): K76.82 - Hepatic encephalopathy Category: Medical (3) Hypersomnia: Code(s): G47.10 - Hypersomnia, unspecified Category: Medical Plan His cognitive exam was normal MMSE- 25/30 Continue CPAP 5-20 cm of water . patient is 100 % compliant and his night time sleep and daytime symptoms have improved significantly. F/u with hepatology Coding Level of Care Code Est Pt Level 4 (41022) Complex EM visit Add On G2211 Diagnoses Obstructive sleep apnea hypopnea, severe G47.33 Hepatic encephalopathy K76.82 Hypersomnia G47.10
--- OUTSIDE RECORDS SUMMARY | 2025-02-28 12:16 | XMS_ITS | Clinical Summary ---
Author Organization [facility] [address] [place] [address] [place] [phone] Phone Care Team Providers Care Keypunch Operator Name Role Phone Juan Carlos Freeman MD [...] 07/26/2024 Iron deficiency anemia 08/16/2023 Atrial fibrillation ([facility]/HCC V24, CMS/HCC V28) 0 03/25/2023 Congestive heart failure ([facility]/HCC V24, [facility] V 28) 03/25/2023 Elevated serum creatinine 02/09/2023 Hyperammonemia (CMS/HCC V24) 02/09/2023 Neutropenia (CMS/HCC V24) 02/09/2023 S/P TAVR (transcatheter aortic valve replacement ) 02/09/2023 Anemia in chronic kidney disease 09/03/2022 Stage 4 chronic kidney disease (CMS/HCC V24, CMS /HCC V28) 09/03/2022 Renal osteodystrophy 09/03/2022 Ulcer of lower extremity (CMS/[facility] V24, CMS/[facility] V 28) 09/03/2022 Anemia 08/03/2022 Ascites 08/03/2022 Acute nontraumatic kidney injury ([facility] V24) 1 10/03/2021 Disorder of brain 08/03/2022 End stage liver disease ([facility] V24, [facility] V2 8) 08/03/2022 Hepatic encephalopathy ([facility] V24, [facility] V28 ) 08/03/2022 Non-pressure chronic ulcer o f unspecified part of right lower leg limited to breakdown of skin ([facility] V24, [facility] V28) 08/03/2022 Obesity 08/03/2022 Type 2 diabetes mellitus wit hout complication ([facility] V24, [facility] V28) 08/03/2022 Osteomyelitis ([facility] V24, [facility] V28) 022 Gastritis 06/08/2022 Overview (09/01/2024): Seen on endoscopy at [facility] on 06/06/22. Ulcer, duodenum peptic 06/08/2022 Overview (09/01/2024): Seen on endoscopy at [facility] on 06/06/22. CKD (chronic kidney disease) stage 3, GFR 30-59 ml/min ([facility] V24, [facility] V28) 04/19/2020 Essential hypertension 02/25/2018 History of liver transplant ([facility] V24, [facility] V28) 08/24/2017 Type 2 diabetes mellitus wit h stage 4 chronic kidney disease, without long-term current use of insulin ([facility] V24, [facility] V28) 08/24/2017 Vertebral osteomyelitis ([facility] V24, [facility] V2 8) 06/12/2017 Hyperlipidemia 05/10/2017 Overview (09/01/2024): Last Assessment & Plan: LDL 96 and liver function was normal today. Will continue atorvastatin 20 mg daily. Aortic valve stenosis 02/25/2017 Intra-abdominal varices 01/09/2014 Watermelon stomach 01/09/2014 Gallstones 10/12/2013 Portal hypertension ([facility] V24, [facility] V28) 0 10/12/2013 Gilbert's syndrome 12/22/2012 Overview (09/01/2024): [facility] note 06/15/2012. Calculus of kidney 10/20/2011 Overview (09/01/2024): Nephrolithiasis Cirrhosis ([facility] V24, [facility] V28) 02/12/2010 Encounters Date Type Department Care Team Description 12/22/2024 9:30 AM EDT Office Visit Adult Medicine [address] [phone] Juan Carlos Freeman MD Osteoporosis, unspecified osteoporosis type, unspecified pathological fracture presence (Primary Dx); Hyperlipidemia, unspecified hyperlipidemia type; Class 2 severe obesity due to excess calories with serious comorbidity and body mass index (BMI) of 36.0 to 36.9 in adult ([facility] V24, [facility] V28) from Last 3 Months Immunizations Name Administration Dates Next Due Hepatitis A-Hepatitis B Adul t (Twinrix) 18yo and older 06/11/2010,12/05/2009,11/07/2009 Hepatitis B (Ihzrnac-C-Lbstn , Recombivax HB-Adult) 19yo and older 09/03/2015,04/03/2015,03/01/2015,03/01 [...] repeat in ten years ESOPHAGOGASTRODUODENOSCOPY 10/17/09 PROCEDURE: MO ESOPHAGOGASTRODUODENOSCOPY TRANSORAL DIAGNOSTIC; COMMENT: normal, without varices; repeat in two years ESOPHAGOGASTRODUODENOSCOPY 09/18/11 PROCEDURE: MO ESOPHAGOGASTRODUODENOSCOPY TRANSORAL DIAGNOSTIC; COMMENT: normal, without varices; repeat in two years ESOPHAGOGASTRODUODENOSCOPY 01/09/14 PROCEDURE: MO ESOPHAGOGASTRODUODENOSCOPY TRANSORAL DIAGNOSTIC; COMMENT: No esophageal varices; [...] duodenum peptic; COMMENT: Seen on endoscopy at [facility] on 06/06/22. Gastritis 06/08/2022 DX:Gastritis; CO MMENT: Seen on endoscopy at [facility] on 06/06/22. Family History Medical History Relation [...] care for your loved ones. For example, children's lunchroom supervisor or elderly care for an older adult? [...] 9:30 AM EDT Office Visit Adult Medicine [facility] [address] [place] [phone] Juan Carlos Freeman MD [address] [place] [address] Health Maintenance Due Date Last Done Comments [...] on patient's age to complete this topic Insurance MEDICARE [facility] Care Teams Keypunch Operator Relationship Specialty Start Date End Date Juan Carlos Freeman MD [address] [place] [address] PCP - General 07/30/22
== END 2025-02-28 11:44 | disposition home or self-care (01) ==
LOC: HO.HSMS 11:19
PROVIDERS: PCP Internal Medicine; Visit Provider Psychiatry & Neurology Neurology
DX: G47.33 Obstructive sleep apnea (adult) (pediatric) (principal); K76.82 Hepatic encephalopathy; G47.10 Hypersomnia, unspecified
CPT/HCPCS: 99214; G2211

== ENCOUNTER → 2025-02-28 11:19 | Outpatient (BNVA) | payer MEDICARE, SELFPAY | PROVIDERS: PCP Internal Medicine; Visit Provider Psychiatry & Neurology Neurology | DX: G47.33 Obstructive sleep apnea (adult) (pediatric) (principal); G47.10 Hypersomnia, unspecified; K76.82 Hepatic encephalopathy | CPT/HCPCS: 99212 ==

== ENCOUNTER 2025-04-29 11:28 | Emergency (ER) | payer MEDICARE, SELFPAY ==
[2025-04-29 11:40] VITALS: BP 144/82; PULSE 78; PULSE 88; RESP 16; TEMP 36.4; O2SAT 100; O2SAT 99; BMI 32.9
--- NOTE | 2025-04-29 11:40 | ECG_ITS ---
Test Reason : AMS Blood Pressure : */* mmHG Vent. Rate : 79 BPM Atrial Rate : 79 BPM P-R Int : 212 ms QRS Dur : 130 ms QT Int : 412 ms P-R-T Axes : 72 1 140 degrees QTcB Int : 472 ms Sinus rhythm with 1st degree A-V block Left bundle branch block Abnormal ECG When compared with ECG of 27-Jan-2025 08:14, No significant change was found Referred By: Generic ED Physician Electronically Signed By: SHANNAN SANTIZO
--- NOTE | 2025-04-29 11:52 | ED.GENADULT ---
HPI - General Adult General Chief complaint: Altered Mental Status Stated complaint: DIZZINESS SHAKINESS Time Seen by Provider: 04/29/25 11:52 History of Present Illness ED Provider: Elbert GARCIA narrative: The patient is a 74-year-old male who was a liver transplant patient. He has had a liver transplant for many years. He is on lactulose. He lives with his . Apparently he skipped a dose of lactulose 2 days ago because he was having loose stools. This morning the patient seemed confused in a manner consistent with hepatic encephalopathy according to his . He seemed to be acting bizarrely and confused. She encouraged him to take a dose of lactulose which he did. He seems to be somewhat better already according to the . The patient was apparently aware that he was not quite right. He has had no fever, sweats, chills. He denies headache, chest pain, abdominal pain, urinary symptoms. No nausea or vomiting. No shortness of breath. Related Data Home Medications ?Medication ?Instructions ?Recorded ?Confirmed amlodipine 10 mg tablet 10 mg PO DAILY 03/31/23 02/06/25 ascorbic acid (vitamin C) 500 mg 500 mg PO DAILY 03/31/23 02/06/25 tablet atorvastatin 20 mg tablet 20 mg PO DAILY 03/31/23 02/06/25 furosemide 40 mg tablet 40 mg PO DAILY 03/31/23 02/06/25 lisinopril 2.5 mg tablet 2.5 mg PO DAILY 03/31/23 02/06/25 sennosides 8.6 mg tablet (senna) 17.2 mg PO DAILY 03/31/23 02/06/25 tacrolimus 0.5 mg capsule, 0.5 mg PO BEDTIME 03/31/23 02/06/25 immediate-release cholecalciferol (vitamin D3) 25 25 mcg PO DAILY 04/13/23 02/06/25 mcg (1,000 unit) tablet multivitamin 1 tab PO DAILY 04/13/23 02/06/25 pen needle, diabetic 32 gauge x #1,200 ea 04/27/23 02/06/25 (BD Loretta 2nd Gen Pen Needle) tirzepatide 5 mg/0.5 mL 5 mg subcut QWEEK 08/07/24 02/06/25 subcutaneous pen injector (Nell) glipizide 5 mg tablet 5 mg PO DAILY 02/06/25 02/06/25 Previous Rx's ?Medication ?Instructions ?Recorded lactulose 10 gram/15 mL oral See Rx Instructions .Route 04/02/23 solution .COMPLEX #3,000 mL apixaban 5 mg tablet (Eliquis) 5 mg PO BID 90 days #180 tabs 06/09/24 omeprazole 20 mg capsule,delayed 20 mg PO DAILY #90 caps 10/10/24 release amoxicillin 500 mg tablet 2,000 mg (4 x 500 mg) PO ONCE #4 11/01/24 tabs Allergies Allergy/AdvReac Type Severity Reaction Status Date / Time ibuprofen (IBUPROFEN) Allergy Severe SWELLING Verified 04/29/25 11:41 peanut (PEANUTS) Allergy Unknown SWELLING Verified 04/29/25 11:41 hydromorphone (From Dilaudid) Allergy Vomiting Verified 04/29/25 11:41 perflutren Allergy Back Pain Verified 04/29/25 11:41 prednisone Allergy Unknown Verified 04/29/25 11:41 Review of Systems Review of Systems: Yes all other systems are reviewed and are negative [facility] Past Medical History Medical History Obstructive sleep apnea hypopnea, severe Hypersomnia Cirrhosis MSSA bacteremia CKD (chronic kidney disease) stage 3, GFR 30-59 ml/min Staphylococcus aureus bacteremia Duodenal ulcer Anemia Acute diastolic (congestive) heart failure Non-rheumatic aortic stenosis PAF (paroxysmal atrial fibrillation) Osteomyelitis Aortic stenosis Duodenitis Hypertension Hypercholesteremia GERD (gastroesophageal reflux disease) Diabetes Fatty liver Gram-positive bacteremia Surgical History History of esophagogastroduodenoscopy (EGD) Liver transplant recipient S/P TAVR (transcatheter aortic valve replacement) Hx of lymph node excision History of back surgery Hx of colonoscopy Liver transplant recipient Family History Family History Mother Myocardial infarct Social History Social History Household Members: Family Housing: House Are you a primary progressive care nurse to a significant other at home: No Do you presently have visiting nurse or other home services: No Alcohol intake: never Patient Tobacco Use Status: Never used Tobacco Advance Directives: Yes Advance Directives on File: Yes Advance Directives Date on File: 05/19/22 service: No Current occupational status: retired Physical Exam ED Vital Signs: Vital Signs - 24 hr 04/29/25 11:40 04/29/25 12:01 04/29/25 13:21 Temperature 97.6 F 98.6 F 98.3 F Pulse Rate 78 75 Respiratory Rate 16 16 Blood Pressure 124/68 Pulse Oximetry 100 99 Oxygen Delivery Method Room Air Room Air 04/29/25 14:00 04/29/25 15:21 Temperature 98.2 F 98.2 F Pulse Rate 79 79 Respiratory Rate 13 13 Blood Pressure 114/65 114/65 Pulse Oximetry 100 100 Oxygen Delivery Method Room Air Room Air BMI result Body Mass Index 32.9 Const Other: The patient is an older man who was awake and alert. He seems mildly confused but not severely so. He is very pleasant. He does not seem in acute distress. HENMT Other: The face is symmetrical. ?Mucous membranes moist. Eyes Other: Pupils are round equal, conjunctivae are clear, extraocular movements intact Neck Neck: Yes normal visual inspection, Yes full ROM, Yes no lymphadenopathy and Yes no JVD Resp Effort & Inspection: normal respiratory effort Auscultation: clear to auscultation bilaterally Cardio Rate: regular rate Rhythm: regular rhythm Heart sounds: S1 normal heart sound present and S2 normal heart sound present GI Other: Abdomen is soft and nontender Skin Other: Skin is pale and dry Neuro Other: The patient is awake and alert. He seems very mildly confused. Cranial nerves are grossly intact. He moves his extremities symmetrically. He has mild asterixis. Extrem Other: No peripheral edema Medications Administered Discontinued Medications Generic Name Dose Route Start Last Admin Trade Name Freq PRN Reason Stop Dose Admin Lactated Ringer's 1,000 mls @ 999 mls/hr 04/29/25 13:15 04/29/25 14:23 Lr IV 04/29/25 14:15 Infused .Q1H1M APTRICIA Infusion Rifaximin 550 mg 04/29/25 12:54 04/29/25 13:24 Rifaximin 550 Mg Tablet PO 04/29/25 12:55 550 mg ONCE ONE Administration Medical Decision Making Medical Decision Making MDM Narrative: The patient is a 74-year-old male with a liver transplant who may have missed a dose or 2 of lactulose recently. Today he seemed somewhat confused. His called an ambulance and he was brought here. She had given him a dose of lactulose prior to transport and she already thinks he is somewhat better. His ammonia is a day is 80. His creatinine today is 2.54 which is similar to a value in February. This seems to be his baseline. He was given a dose of rifaximin and a L of crystalloid fluid. He looked better and seemed clear. His feels he is close to back to normal and she is comfortable continuing lactulose at home. He has a an appointment with an watermaster at the [facility] tomorrow. Lab Data 04/29/25 12:14 04/29/25 12:14 Labs: Lab Results 04/29/25 04/29/25 Range/Units 12:14 14:30 WBC 3.8 L (4.8-10.8) X10*3/uL RBC 3.10 L (4.60-5.80) X10*6/uL Hgb 10.5 L (14.0-18.0) g/dl Hct 28.1 L (42.0-52.0) % MCV 90.6 (80.0-98.0) fL MCH 33.9 H (27.0-33.0) pg MCHC 37.4 H (31.0-36.0) g/dl RDW 13.2 (11.0-16.0) % Plt Count 120 L (160-400) X10*3/uL MPV 9.6 (9.4-12.4) fL Immature Gran % (Auto) 0.0 (0.0-0.4) % Neut % (Auto) 38.2 L (45-73) % Lymph % (Auto) 46.1 H (20-40) % Winston % (Auto) 6.9 (2-11) % Eos % (Auto) 8.0 H (0-4) % Baso % (Auto) 0.8 (0-2) % Lymph # (Auto) 1.7 (1.2-4.9) X10*3/uL Winston # (Auto) 0.3 (0.1-1.2) X10*3/uL Eos # (Auto) 0.3 (0.0-0.4) X10*3/uL Baso # (Auto) 0.0 (0.0-0.2) X10*3/uL Abs Immat Gran (auto) 0.00 (0.00-0.03) X10*3/uL Absolute Neuts (auto) 1.4 L (2.0-8.3) x10*3/uL Absolute Nucleated RBC 0.000 (0.0-0.012) X10*3/uL Nucleated RBC % (auto) 0.0 (0.0-0.2) /100WBC Hold Blue Top SEE NOTE Sodium 142 (135-145) mmol/L Potassium 4.6 (3.3-5.1) mmol/L Chloride 115 H (96-108) mmol/L Carbon Dioxide 16 L (22-29) mmol/L Anion Gap 16 (12-20) BUN 39 H (9-16) mg/dL Creatinine 2.54 H (0.5-1.4) mg/dL Estim Creat Clear Calc 23.6 Estimated GFR 25 Random Glucose 169 H (60-115) mg/dL Calcium 9.0 (8.4-10.2) mg/dL Total Bilirubin 0.7 (0.0-1.0) mg/dL AST 25 (5-37) U/L ALT 12 (0-40) U/L Alkaline Phosphatase 85 (39-117) U/L Ammonia 80 H (13-55) umol/L Troponin I High Sens 8.4 D (<3.5-35.0) ng/L C-Reactive Protein < 0.10 (< or = 0.50) mg/dL B-Natriuretic Peptide 80 (<100) pg/mL Total Protein 6.5 (6.5-8.0) g/dL Albumin 3.7 (3.5-5.0) g/dL Urine Color Yellow Urine Appearance Clear Urine pH 5.5 (5.0-9.0) Ur Specific [place] 1.010 (1.005-1.025) Urine Protein Negative (Neg-Trace) mg/dL Urine Glucose (UA) Negative (Negative) mg/dL Urine Ketones Negative (Negative) mg/dL Urine Blood Negative (Negative) Urine Nitrite Negative (Negative) Ur Leukocyte Esterase Negative (Negative) Independent Interpretation I performed an independent interpretation of an: EKG Interpretation: EKG at 11:38 shows sinus rhythm with a first-degree AV block at 79 beats per minute. There is a left bundle branch block which is old. Discharge Plan Discharge Clinical Impression: Hepatic encephalopathy Patient Disposition: Home, Self-Care Instructions: Hepatic Encephalopathy (DC) Additional Instructions: I think you experienced very mild hepatic encephalopathy. Please take another dose of lactulose this evening. Continue your other medications as well. Please keep your appointment with the watermaster tomorrow as scheduled. Also follow up with your other doctors. Return to the emergency room if significantly worse. Prescriptions: No Action Eliquis 5 mg tablet 5 mg PO BID 90 Days Qty: 180 3RF omeprazole 20 mg capsule,delayed release(DR/EC) 20 mg PO DAILY Qty: 90 2RF amoxicillin 500 mg tablet 2,000 mg PO ONCE Qty: 4 0RF Rx Instructions: TAKE 4 TABS, 1 HOUR BEFORE THE PROCEDURE cholecalciferol (vitamin D3) 25 mcg (1,000 unit) Tablet 25 mcg PO DAILY multivitamin Tablet 1 tab PO DAILY furosemide 40 mg tablet 40 mg PO DAILY atorvastatin 20 mg tablet 20 mg PO DAILY amlodipine 10 mg tablet 10 mg PO DAILY lisinopril 2.5 mg tablet 2.5 mg PO DAILY tacrolimus 0.5 mg capsule 0.5 mg PO BEDTIME sennosides [senna] 8.6 mg Tablet 17.2 mg PO DAILY ascorbic acid (vitamin C) 500 mg Tablet 500 mg PO DAILY lactulose 10 gram/15 mL solution See Rx Instructions .ROUTE .COMPLEX Qty: 3000 0RF Rx Instructions: 30 mL orally 3-4 times a day; adjust to achieve 3-4 soft bowel movements daily (DME) pen needle, diabetic [BD Loretta 2nd Gen Pen Needle] 32 gauge x 5/32 needle See Rx Instructions .ROUTE DAILY Qty: 1200 Rx Instructions: As directed Mounjaro 5 mg/0.5 mL pen injector 5 mg subcut QWEEK glipizide 5 mg tablet 5 mg PO DAILY Referrals: Juan Carlos Freeman MD [Primary Care Provider, Internal Medicine] Interventions: ED Discharge Assessment Last Done: 04/29/25 15:21 Discharge Date/Time: 04/29/25 15:21 Print Language: Belarusian
[2025-04-29 12:01] VITALS: TEMP 37
[2025-04-29 12:19] LABS: MANUAL DIFF FLAG NO
--- NOTE | 2025-04-29 12:20 | PC.NURSE ---
at bedside to give additional information. states that he has history of liver transplant and there have been some ?stent movements. this has happened in the past and his ammonia levels have been elevated. also has been having diarrhea for the past few days and stopped taking his lactulose d/t this. difficult IV stick, multiple attempts. 22IV to left hand, labs obtained and sent. patient answering questions appropriately, states he does recognize that he was altered this morning. shakiness observed.
[2025-04-29 12:28] LABS: Ammonia 80 umol/L (13-55)
[2025-04-29 12:37] LABS: Alanine Aminotransferase 12 U/L (0-40); Albumin Level 3.7 g/dL (3.5-5.0); Alkaline Phosphatase 85 U/L (39-117); Anion Gap 16 (12-20); Aspartate Amino Transferase 25 U/L (5-37); Blood Urea Nitrogen 39 mg/dL (9-16); Calcium 9.0 mg/dL (8.4-10.2); Carbon Dioxide 16 mmol/L (22-29); Chloride 115 mmol/L (96-108); Creatinine Clr Calc Pharmacy 23.6; Estimated Glomerular Filt Rate 25; Potassium 4.6 mmol/L (3.3-5.1); Sodium 142 mmol/L (135-145); Total Protein 6.5 g/dL (6.5-8.0)
[2025-04-29 12:43] LABS: B Type Natriuretic Peptide 80 pg/mL (<100)
[2025-04-29 12:44] LABS: Troponin-I High Sensitivity 8.4 ng/L (<3.5-35.0)
[2025-04-29 12:53] LABS: Hematocrit 28.1 % (42.0-52.0); Hemoglobin 10.5 g/dl (14.0-18.0); Imm Gran Abs Auto 0.00 X10*3/uL (0.00-0.03); Imm Gran Pct Auto 0.0 % (0.0-0.4); Lymphocytes Absolute Auto 1.7 X10*3/uL (1.2-4.9); Mean Corpuscular HGB Conc 37.4 g/dl (31.0-36.0); Mean Corpuscular Hemoglobin 33.9 pg (27.0-33.0); Mean Corpuscular Volume 90.6 fL (80.0-98.0); NRBC Abs Auto 0.000 X10*3/uL (0.0-0.012); NRBC Pct Auto 0.0 /100WBC (0.0-0.2); Platelet Count 120 X10*3/uL (160-400); Red Blood Count 3.10 X10*6/uL (4.60-5.80); White Blood Count 3.8 X10*3/uL (4.8-10.8)
[2025-04-29 13:21] VITALS: BP 124/68; PULSE 75; RESP 16; TEMP 36.8; O2SAT 99
[2025-04-29] MEDS: Lactated Ringers 1,000 ML 999 ML IV (13:22)
[2025-04-29 14:00] VITALS: BP 114/65; PULSE 79; RESP 13; TEMP 36.8; O2SAT 100
--- NOTE | 2025-04-29 14:32 | PC.NURSE ---
patient up out of bed to use urinal w/out assistance. remains at bedside. fluids have infused.
[2025-04-29 14:46] LABS: Appearance Urine Clear; Glucose Urine UA Negative (Negative); PH 5.5 (5.0-9.0); Specific Gravity - Urine 1.010 (1.005-1.025)
[2025-04-29 15:21] VITALS: BP 114/65; PULSE 79; RESP 13; TEMP 36.8; O2SAT 100
== END 2025-04-29 15:21 | disposition home or self-care (01) ==
PROVIDERS: Emergency Provider Emergency Medicine; PCP Internal Medicine
DX: K76.82 Hepatic encephalopathy (principal); Z94.4 Liver transplant status; Z79.899 Other long term (current) drug therapy
CPT/HCPCS: 36415; 80053; 81003; 82140; 83880; 84484; 85025; 86140; 93005; 96360; 99284; 99285; J7120

== ENCOUNTER → 2025-04-29 11:40 | Outpatient (BNV) | payer MEDICARE, SELFPAY | PROVIDERS: Emergency Provider Emergency Medicine; PCP Internal Medicine; Visit Provider Internal Medicine | DX: I44.0 Atrioventricular block, first degree (principal); I44.7 Left bundle-branch block, unspecified | CPT/HCPCS: 93010 ==

== ENCOUNTER 2025-05-14 08:38 | Outpatient (AMB) | payer MEDICARE, SELFPAY ==
[2025-05-14 08:48] VITALS: BP 122/62; PULSE 77; BMI 31.9
--- NOTE | 2025-05-14 08:48 | MHC.OFFVIS ---
Vital Signs 05/14/25 08:48 Height 5 ft 2 in Weight 174 lb 2.643 oz BMI 31.9 BP 122/62 Blood Pressure Location Lt brachial Position Sitting Pulse 77 Pulse Source Pulse Oximeter Intake Visit Reasons: 3 mth f/up Allergies ibuprofen (IBUPROFEN) Allergy (Severe, Verified 04/29/25 11:41) SWELLING peanut (PEANUTS) Allergy (Unknown, Verified 04/29/25 11:41) SWELLING hydromorphone (From Dilaudid) Allergy (Verified 04/29/25 11:41) Vomiting perflutren Allergy (Verified 04/29/25 11:41) Back Pain prednisone Allergy (Verified 04/29/25 11:41) Unknown Medication List - Last Reconciled 05/14/25 by Gabino Palacios MD amlodipine 10 mg PO DAILY apixaban (Eliquis) 5 mg PO BID 90 days ascorbic acid (vitamin C) 500 mg PO DAILY atorvastatin 20 mg PO DAILY cholecalciferol (vitamin D3) 25 mcg PO DAILY furosemide 40 mg PO DAILY glipizide 5 mg PO DAILY lactulose 30 mL orally 3-4 times a day; adjust to achieve 3-4 soft bowel movements daily lisinopril 2.5 mg PO DAILY multivitamin 1 tab PO DAILY omeprazole 20 mg PO DAILY pen needle, diabetic (BD Loretta 2nd Gen Pen Needle) As directed sennosides (senna) 17.2 mg PO DAILY tacrolimus 0.5 mg PO BEDTIME tirzepatide (Mounjaro) 5 mg subcut QWEEK HPI Comments Details: Boaz returns for follow-up. Due to congestive heart failure, he underwent transcatheter aortic valve replacement. Overall, he states he is feeling good. No cardiac symptoms whatsoever. [facility] Medical History Obstructive sleep apnea hypopnea, severe Hypersomnia Cirrhosis MSSA bacteremia CKD (chronic kidney disease) stage 3, GFR 30-59 ml/min Staphylococcus aureus bacteremia Duodenal ulcer Anemia Acute diastolic (congestive) heart failure Non-rheumatic aortic stenosis PAF (paroxysmal atrial fibrillation) Osteomyelitis Aortic stenosis Duodenitis Hypertension Hypercholesteremia GERD (gastroesophageal reflux disease) Diabetes Fatty liver Gram-positive bacteremia Surgical History History of esophagogastroduodenoscopy (EGD) Liver transplant recipient S/P TAVR (transcatheter aortic valve replacement) Hx of lymph node excision History of back surgery Hx of colonoscopy Liver transplant recipient Family History Mother Myocardial infarct Social History Household Members: Family Housing: House Are you a primary primary care physician to a significant other at home: No Do you presently have visiting nurse or other home services: No Alcohol intake: never Patient Tobacco Use Status: Never used Tobacco Advance Directives Date on File: 05/19/22 service: No Current occupational status: retired Review of Systems Const Denies weakness ENT Denies dizziness Card Denies chest pain, Denies chest pain with activity, Denies syncope, Denies rapid heart rate, Denies pedal edema, Denies edema, Denies leg edema, Denies lightheadedness, Denies palpitations, Denies dyspnea, Denies dyspnea on exertion and Denies orthopnea Resp Denies cough, Denies dyspnea and Denies dyspnea on exertion GI Denies hematochezia and Denies change in stool character Musc Denies abnormal gait, Denies muscle cramps, Denies muscle weakness, Denies numbness, Denies radiating pain into limb and Denies tingling Neuro Denies abnormal gait, Denies dizziness, Denies syncope, Denies numbness, Denies tingling and Denies weakness Endo Denies palpitations Physical Exam Vital Signs: Last Vital Signs Pulse 77 05/14/25 08:48 BP 122/62 05/14/25 08:48 BMI result Body Mass Index 31.9 Const General: comfortable and no acute distress Orientation/consciousness: patient oriented x3 HEENT Other: Unremarkable Head: Yes normal to inspection Neck Neck: Yes normal visual inspection Chest Chest palpation & inspection: normal inspection of the chest Resp Auscultation: clear to auscultation bilaterally Cardio Palpation: normal PMI Heart sounds: S1 normal heart sound present, S2 normal heart sound present, no gallops, no murmurs and no rubs GI Palpation (GI): Soft to palpation Back/Spine/Pelvis Other: unremarkable Skin General skin exam: no rashes or lesions noted Neuro General: patient oriented x3 Extrem General: Yes normal to inspection Psych Mental Status: mental status grossly normal Assessment & Plan Assessment & Plan (1) Status post transcatheter aortic valve replacement (TAVR) using bioprosthesis: Code(s): Z95.3 - Presence of xenogenic heart valve Category: Surgical Plan: Normal function on the last echocardiogram. Infective endocarditis prophylaxis per protocol. (2) Chronic heart failure with preserved ejection fraction: Code(s): I50.32 - Chronic diastolic (congestive) heart failure Category: Medical Plan: Slight up trend in renal function with a creatinine at 2.5. , previously 2.1. As he has got no heart failure symptoms, advised him to cut back on the Lasix. They also discuss that with Nephrology. (3) Left bundle branch block: Code(s): I44.7 - Left bundle-branch block, unspecified Category: Medical Plan: To be monitored. Cardiac catheterization 2021-normal left main/LAD. Minimal irregularities in circumflex/RCA. This is reassuring. (4) PAF (paroxysmal atrial fibrillation): Code(s): I48.0 - Paroxysmal atrial fibrillation Category: Medical Plan: Continue Eliquis. Off aspirin. (5) Gastrointestinal bleed: Code(s): K92.2 - Gastrointestinal hemorrhage, unspecified Category: Medical Plan: EGD- stomach and duodenal ulcers. On omeprazole. (6) Liver transplant recipient: Code(s): Z94.4 - Liver transplant status Category: Surgical Plan: Continue transplant meds. Plan Discussion Notes We reviewed the current diuretic regimen and considered the potential for further reduction to prevent kidney damage, especially given the patient's recent weight loss. The patient was advised to follow up with Nephrology to evaluate kidney function and adjust treatment as necessary. Patient was informed and verbally consented to the use of an ambient scribe for clinic note documentation during this visit. Coding Level of Care Code Est Pt Level 4 (44852) Complex EM visit Add On G2211 Diagnoses Status post transcatheter aortic valve replacement (TAVR) using bioprosthesis Z95.3 Chronic heart failure with preserved ejection fraction I50.32 Left bundle branch block I44.7 PAF (paroxysmal atrial fibrillation) I48.0 Gastrointestinal bleed K92.2 Liver transplant recipient Z94.4
--- OUTSIDE RECORDS SUMMARY | 2025-05-14 08:59 | XMS_ITS | Clinical Summary ---
Author Organization [facility] [address] [place] [address] [place] [phone] Phone Care Team Providers Care Wildlife Refuge Manager Name Role Phone Juan Carlos Freeman MD Primary Care Provider Allergies Active Allergy Reactions Criticality Noted Date Comments Gadolinium-Containing Contrast Media Other 10/08/2021 Ibuprofen 09/05/2010 swelling Naproxen Other 10/08/2021 Nsaids (Non-Steroidal Anti-I nflammatory Drug) 08/03/2022 Peanut Other 10/08/2021 Prednisone 08/03/2022 Medications tirzepatide (Mounjaro) 5 mg/0.5 mL injection Inject 1.5 mL (15 mg total) under the skin. 07/26/20 24 Active tacrolimus (PROGRAF) 1 mg capsule Take 1 capsule (1 mg total) by mouth. 05/12/20 23 Active tacrolimus (PROGRAF) 0.5 mg capsule Take 1 capsule (0.5 mg total) by mouth. 05/12/20 23 Active senna (SENOKOT) 8.6 mg tablet Take 1 tablet (8.6 mg total) by mouth 1 (one) time each day. Active omeprazole (PriLOSEC) [address] capsule Take 1 capsule (20 mg total) by mouth 1 (one) time each day. 08/16/20 23 Active lisinopriL (PRINIVIL,ZEST RIL) 2.5 mg tablet Take 1 tablet (2.5 mg total) by mouth 1 (one) time each day. 05/29/20 22 Active furosemide (LASIX) 40 mg tablet Take 0.5 tablets (20 mg total) by mouth. 07/26/20 24 Active apixaban (Eliquis) 5 mg tablet Take 1 tablet (5 mg total) by mouth. 05/25/20 Active ascorbic acid, vitamin C, 500 mg capsule Take 500 mg by mouth. Active atorvastatin (LIPITOR) 20 mg tablet Take 1 tablet (20 mg total) by mouth 1 (one) time each day. 05/29/20 Active MULTIVITAMIN ORAL 1 (one) time each day. Active glipiZIDE (GLUCOTROL) 5 mg tablet Take 1 tablet (5 mg total) by mouth 2 (two) times a day before meals. Active lactulose (CHRONULAC) solution Take 30 mL (20 g total) by mouth 1 (one) time each day if needed (hyperammonem ia). Titrate to 2 to 3 bowel movements 2700 mL 12/23/19 Active amLODIPine (NORVASC) 10 mg tablet TAKE ONE TABLET BY MOUTH EVERY DAY 90 tablet 1 05/11/20 Active amLODIPine (NORVASC) 10 mg tablet TAKE ONE TABLET BY MOUTH EVERY DAY 90 tablet 1 11/11/19 25 025 Discontinued Active Problems Problem Noted Date Diagnosed Date Constipation 03/29/2025 Sarcoid 09/01/2024 BIRDIE on CPAP 07/26/2024 Iron deficiency anemia 08/16/2023 Atrial fibrillation ([facility] V24, [facility]/HCC V28) 0 03/25/2023 Congestive heart failure ([facility] V24, [facility] V 28) 03/25/2023 Elevated serum creatinine 02/09/2023 Hyperammonemia ([facility] V24) 02/09/2023 Neutropenia ([facility] V24) 02/09/2023 S/P TAVR (transcatheter aortic valve replacement ) 02/09/2023 Anemia in chronic kidney disease 09/03/2022 Stage 4 chronic kidney disease (CMS/HCC V24, CMS /HCC V28) 09/03/2022 Renal osteodystrophy 09/03/2022 Ulcer of lower extremity (CMS/HCC V24, CMS/HCC V 28) 09/03/2022 Anemia 08/03/2022 Ascites 08/03/2022 Acute nontraumatic kidney injury (CMS/HCC V24) 1 10/03/2021 Disorder of brain 08/03/2022 End stage liver disease (CMS/HCC V24, CMS/HCC V2 8) 08/03/2022 Hepatic encephalopathy ([facility] V24, [facility] V28 ) 08/03/2022 Non-pressure chronic ulcer o f unspecified part of right lower leg limited to breakdown of skin ([facility] V24, [facility] V28) 08/03/2022 Obesity 08/03/2022 Type 2 diabetes mellitus wit hout complication ([facility] V24, [facility] V28) 08/03/2022 Osteomyelitis ([facility] V24, [facility] V28) 022 Gastritis 06/08/2022 Overview (09/01/2024): Seen on endoscopy at [facility] on 06/06/22. Ulcer, duodenum peptic 06/08/2022 Overview (09/01/2024): Seen on endoscopy at [facility] on 06/06/22. CKD (chronic kidney disease) stage 3, GFR 30-59 ml/min ([facility] V24, [facility] V28) 04/19/2020 Essential hypertension 02/25/2018 History of liver transplant ([facility] V24, [facility] V28) 08/24/2017 Type 2 diabetes mellitus wit h chronic kidney disease, without long-term current use of insulin ([facility] V24, [facility] V28) 08/24/2017 Vertebral osteomyelitis ([facility] V24, [facility] V2 8) 06/12/2017 Hyperlipidemia 05/10/2017 Overview (09/01/2024): Last Assessment & Plan: LDL 96 and liver function was normal today. Will continue atorvastatin 20 mg daily. Aortic valve stenosis 02/25/2017 Intra-abdominal varices 01/09/2014 Watermelon stomach 01/09/2014 Gallstones 10/12/2013 Portal hypertension ([facility] V24, [facility] V28) 0 10/12/2013 Gilbert's syndrome 12/22/2012 Overview (09/01/2024): [facility] 06/15/2012. Calculus of kidney 10/20/2011 Overview (09/01/2024): Nephrolithiasis Cirrhosis ([facility] V24, [facility] V28) 02/12/2010 Encounters Date Type Department Care Team Description 03/29/2025 9:30 AM EDT Office Visit Adult Medicine [address] [phone] Juan Carlos Freeman MD Hyperlipidemia, unspecified hyperlipidemia type (Primary Dx); Type 2 diabetes mellitus with chronic kidney disease, without long-term current use of insulin, unspecified CKD stage ([facility] V24, [facility] V28); Abnormality, skin; Class 2 severe obesity due to excess calories with serious comorbidity and body mass index (BMI) of 36.0 to 36.9 in adult ([facility] V24, [facility] V28); Atrial fibrillation, unspecified type ([facility] V24, [facility] V28); Chronic congestive heart failure, unspecified heart failure type ([facility] V24, [facility] V28); Constipation, unspecified constipation type from Last 3 Months Immunizations Name Administration Dates Next Due Hepatitis A-Hepatitis B Adul t (Twinrix) 18yo and older 06/11/2010,12/05/2009,11/07/2009 Hepatitis B (Dqqukma-N-Pppht , Recombivax HB-Adult) 19yo and older 09/03/2015,04/03/2015,03/01/2015,03/01 [...] repeat in ten years ESOPHAGOGASTRODUODENOSCOPY 10/17/09 PROCEDURE: [place] ESOPHAGOGASTRODUODENOSCOPY TRANSORAL DIAGNOSTIC; COMMENT: normal, without varices; repeat in two years ESOPHAGOGASTRODUODENOSCOPY 09/18/11 PROCEDURE: [place] ESOPHAGOGASTRODUODENOSCOPY TRANSORAL DIAGNOSTIC; COMMENT: normal, without varices; repeat in two years ESOPHAGOGASTRODUODENOSCOPY 01/09/14 PROCEDURE: [place] ESOPHAGOGASTRODUODENOSCOPY TRANSORAL DIAGNOSTIC; COMMENT: No esophageal varices; [...] duodenum peptic; COMMENT: Seen on endoscopy at [facility] on 06/06/22. Gastritis 06/08/2022 DX:Gastritis; CO MMENT: Seen on endoscopy at [facility] on 06/06/22. Family History Medical History Relation Name Comments Hypertension Father Heart attack Mother Hypertension Mother Relation Name Status Comments Father Mother Social History Tobacco Use Types Packs/Day Years Used Date Smoking Tobacco: Never Smokeless Tobacco: Never Tobacco Cessation:Counseling Given: Not Answered Alcohol Use Standard Drinks/Week Comments No 0 [...] Record ed Within the last 3 months, antoni quigley many times did you visit the emergency [...] your loved ones. For example, child care teacher or elderly care for an older [...] Sign Reading Time Taken Comments Blood Pressure 100/68 03/29/2025 9:22 AM EDT Pulse 64 03/29/2025 9:22 AM EDT Temperature 36.1 C (97 F) 03/29/2025 9:22 AM EDT Respiratory Rate 12 12/22/2024 9:25 AM EDT Oxygen Saturation - - Inhaled Oxygen Concentration - - Weight 90.7 kg (200 lb) 03/29/2025 9:22 AM EDT Height 157.5 cm (5' 2 ) 03/29/2025 9:22 AM EDT Body Mass Index 36.58 03/29/2025 9:22 AM EDT Plan of Treatment Upcoming Encounters Date Type Department Care Team (Late st Contact Info) Description 07/27/2025 10:00 AM EDT Office Visit Adult Medicine [facility] [address] [place] [address] Juan Carlos Freeman MD [address] [place] [address] Health Maintenance Due Date Last Done Comments Zoster Vaccines (1 of 2) 02/13/2015 12/19/2014 Falls Risk Assessment 09/05/2022 Medicare Annual Wellness Visit 09/05/2022 COVID-19 Vaccine ( season) 2024 06/19/2021, 11/21/2020, 10/24/2020 Diabetes: Blood Sugar Control Test (HGBA1C) 11/11/2024 05/11/2024 DTaP,Tdap,and Td Vaccines (3 - Td or Tdap) 03/01/2025 03/01/2015, 06/04/2009 Influenza Vaccine (#1) 2025 , 06/24/2023, 07/28/2021, Additional history exists Diabetes: Annual Retina Eye Exam 07/05/2025 07/05/2024 Diabetes: Annual Foot Exam 09/27/2025 03/14/2024 P ostponed from 03/14/2025 (Patient Refused) Diabetes: Annual Urine Albumin-Creatinine Ratio (uACR) 12/19/2025 12/19/2024, 06/13/2024, 05/11/2024 Social Influencers of Health Screening 12/21/2025 12/21/2024 Diabetes: Annual GFR (Glomerular Filtration Rate) 03/06/2026 03/06/2025, 03/06/2025, 12/19/2024, Additional history exists Hypertension/CHF/CAD Annual BMP Blood Test 03/06/2026 03/06/2025, 03/06/2025, 06/13/2024, Additional history exists Colorectal Cancer Screening: Colonoscopy 04/22/2027 04/22/2017 Cholesterol Screening (Lipid Panel) 03/21/2030 03/21/2025, 06/13/2024, 05/11/2024 Hepatitis A Vaccines Aged Out 06/11/2010, 12/05/2009, 11/07/2009 No longer eligible based on patient's age to complete this topic Hepatitis C Screening Completed 02/28/2015 Hepatitis B Vaccines Completed 09/03/2015, 04/03/2015, 03/01/2015, Additional history exists Pneumococcal Vaccine: 50+ Years Completed 04/24/2022, 10/29/2015, 06/25/2014 RSV Immunization Adult Patients Completed 06/24/2023 Depression Screening Completed 12/21/2024 HIB Vaccines Aged Out No longer eligi [...] Procedure Name Priority Date/Time Associated Diagnosis Comments LIPID PANEL WITH REFLEX TO DIRECT LDL Routine 03/21/2025 12:00 PM EDT Hyperlipidemia, unspecified hyperlipidemia type from Last 3 Months Results * (ABNORMAL) Lipid panel with reflex to direct LDL (03/21/2025 12:00 PM EDT) Cholesterol 147 0 - 200 mg/dL LAB CHEMISTRY METHOD 03/21/2025 4:03 PM EDT [facility] Triglycerides 175(H) 0 - 150 mg/dL LAB CHEMISTRY METHOD 03/21/2025 4:03 PM EDT [facility] HDL 34(L) >=40 mg/dL LAB CHEMISTRY METHOD 03/21/2025 4:03 PM EDT [facility] LDL Calculated 78 0 - 100 mg/dL LAB CHEMISTRY METHOD 03/21/2025 4:03 PM EDT [facility] VLDL Cholesterol Vadim 35 mg/dL LAB CHEMISTRY METHOD 03/21/2025 4:03 PM EDT [facility] Non HDL Chol. (LDL+VLDL) 113 <145 mg/dL LAB CHEMISTRY METHOD 03/21/2025 4:03 PM EDT [facility] Chol/HDL Ratio 4.3 0.0 - 4.4 LAB CHEMISTRY METHOD 03/21/2025 4:03 PM EDT [facility] Blood Venous blood specimen / Unknown Venipuncture / Unknown 03/21/2025 12:00 PM EDT 03/21/2025 12:19 PM EDT Juan Carlos Freeman MD LAB BLOOD ORDERABLES Final Result [facility] [address] [place] [address], from Last 3 Months Insurance MEDICARE [facility] Care Teams Wildlife Refuge Manager Relationship Specialty Start Date End Date Juan Carlos Freeman MD [address] [place] [address] PCP - General 07/30/22
--- OUTSIDE RECORDS SUMMARY | 2025-05-14 08:59 | XMS_ITS | Clinical Summary ---
Author Organization [facility] Address [address] [place] [id number] Care Team Providers Care Probation Officer Name Role Phone Unavailable Primary Care Provider [...] to breakdown of skin 08/03/2022 Osteomyelitis 08/03/2022 Immunizations Immunization Administration Dates Next Due Hep [...] Office Visit [facility] [address] [place] [phone] Lexx Ramirez MD [facility] [address] [phone] 12/24/2025 3:30 PM EDT Office Visit [facility] [address] [place] [address] Lexx Ramirez MD [address] [phone] Health Maintenance Due Date Last Done Comments Colorectal Cancer Screening: Annual FOBT 1999 Colorectal Cancer Screening: Colonoscopy 1999 Colorectal Cancer Screening: Sigmoidoscopy 1999 Diabetes: Hemoglobin A1C 06/14/2022 Diabetes: Ophthalmology Exam 06/14/2022 Diabetes: Pedal Pulse Checked 06/14/2022 Diabetes: Sensory Foot Exam 06/14/2022 Diabetes: Visual Foot Exam 06/14/2022 Influenza Vaccine (#1) 2025 , 07/28/2021, 06/19/2021, Additional history exists Hepatitis B Vaccine Completed 09/03/2015, 04/03/2015, 03/01/2015, Additional history exists Pneumococcal Vaccine: 50+ Years Completed 04/24/2022, 10/29/2015, 06/25/2014 Pneumococcal Vaccine: Peds ( 0 to 5 Years) and At-Risk Patients (6 to 49 Years) Discontinued 04/24/2022, 10/29/2015, 06/25/2014 Insurance Medicare [facility] Medicare [facility]
--- OUTSIDE RECORDS SUMMARY | 2025-05-14 08:59 | XMS_ITS | Patient Health Record ---
Author Organization [facility] Address [address] [facility] [place] [address] Care Team Providers Care Electrical Tester Battery Name Role Phone Yonas Oconnor MD Primary Care Provider Lauren Lei Unavailable [phone] Allergies Allergen (clinical drug ingredient) Drug/Non Drug [...] 81 MG 1 tablet Orally Once a day; Duration: 30 day(s) Active cloNIDine HCl 0.1 MG 1 tablet Orally Onc e a day; Duration: 30 day(s) Active Colace 100 MG 1 capsule as needed Orally Once a day Active Januvia 50 MG 1 tablet Orally Once a day Active Lisinopril 2.5 MG 1 tablet Orally Once a day; Duration: 30 day(s) Active Tacrolimus 1 MG as directed Orally T wice a day Active Repaglinide 0.5 MG 1 tablet 15 to 30 minutes before meals Orally Twice a day; Duration: 30 day(s) Active Vitamin C 500 MG 1 tablet Orally Once a day; Duration: 30 day(s) Active Atorvastatin Calcium 20 MG 1 tablet Orally Once a day; Duration: 30 day(s) Active Vitamin D 500mg Once a day Act grace amLODIPine Besylate 10 MG 1 tablet Orally Once a day; Duration: 30 day(s) Not-Jarrod ing Extra Depth Orthopedic Shoes (1 Pair) with Customized Heat Molded Multidensity Innersoles (3 Pair) as directed Dx: NIDDM (E11.9), Hammertoe Foot Deformity (M20.41,M20.42), Preulcerative Skin Lesion(s) (L85.1) 06/21/2020 Active Immunizations Vaccine Route Administration Date Status Comme nts Influenza Unknown 06/27/2020 Administered Influenza Unknown 07/28/2021 Administered COVID-19 Moderna Vaccine Unknown 06/19/2021 Administered First Dose:10/24/2020 Second Dose:11/21/2020 Social History Tobacco Use: Social History Observation [...] Problem Status W/U Status Risk Notes Problem Non-pressure ulcer of right lower extremity, limited to breakdown of skin (L97.911) Active confirmed Problem Type II diabetes mellitus without complication (819121517) Type 2 diabetes mellitus without complication, without long-term current use of insulin (E11.9) Active confirmed Plan Of Treatment No Information Insurance Providers Payer Name Payer Address Payer Phone Subscriber Number Group Number Insured Name Patient Relationship to Insured Coverage Start Date Coverage End Date [facility] [address] [place] [address] [id number] Boaz Bangura Self - patient is the [...]
--- OUTSIDE RECORDS SUMMARY | 2025-05-14 09:00 | XMS_ITS | Clinical Summary ---
Author Organization [facility] Address [address] [facility] [address] [place] [phone] Phone Care Team Providers Care Business Process Expert Name Role Phone Unavailable Primary Care Provider Unavailabl e Social History Tobacco Use Types Packs/Day Years Used Date Smoking Tobacco: Never Assessed Education Answer Date Recorded Are you interested in more education? Not on herbert e 01/23/2023 Are you concerned about learning? Not on file 01/23/2023 No 01/23/2023 No 01/23/2023 Digital Access Answer Date Recorded No 02/23/2023 No 02/23/2023 Reliable internet access at home? Not on file 02/23/2023 Device with a working camera? Not on file Sex and Gender Information Value Date Recorded Sex Assigned at Not on file Legal Sex Male 12:36 PM EDT Gender Identity Not on file Sexual Orientation Not on file Plan of Treatment Not on file Medical Devices Not on file Additional Source Comments The information contained in this document represents components of the legal health record. It is not the complete legal health record.[facility]
== END 2025-05-14 09:15 | disposition home or self-care (01) ==
LOC: HO.HCS 08:38
PROVIDERS: PCP Internal Medicine; Visit Provider Internal Medicine
DX: Z95.3 Presence of xenogenic heart valve (principal); I50.32 Chronic diastolic (congestive) heart failure; I44.7 Left bundle-branch block, unspecified; I48.0 Paroxysmal atrial fibrillation; K92.2 Gastrointestinal hemorrhage, unspecified; Z94.4 Liver transplant status
CPT/HCPCS: 99214; G2211

== ENCOUNTER → 2025-05-14 08:38 | Outpatient (BNVA) | payer MEDICARE, SELFPAY | PROVIDERS: PCP Internal Medicine; Visit Provider Internal Medicine | DX: Z95.3 Presence of xenogenic heart valve (principal); Z94.4 Liver transplant status; Z79.899 Other long term (current) drug therapy | CPT/HCPCS: 99212 ==

== ENCOUNTER 2025-07-30 09:44 | Outpatient (AMB) | payer MEDICARE, SELFPAY ==
[2025-07-30 09:46] VITALS: BP 128/70; PULSE 69; O2SAT 100; BMI 34.1
--- NOTE | 2025-07-30 09:46 | MHC.OFFVIS ---
Vital Signs 07/30/25 09:46 Height 5 ft 2 in Weight 186 lb 4 oz BMI 34.1 BP 128/70 Blood Pressure Location Rt brachial Position Sitting Pulse 69 Pulse Source Pulse Oximeter Pulse Oximetry (%) 100 Oxygen Delivery Method Room Air Intake Visit Reasons: F/U Intake Note: Follow up Hepatic encephalopathy, Hypersomnia and BIRDIE Home Support Worker Required: No Accompanied by: Spouse Allergies ibuprofen (IBUPROFEN) Allergy (Severe, Verified 07/30/25 09:46) SWELLING peanut (PEANUTS) Allergy (Unknown, Verified 07/30/25 09:46) SWELLING hydromorphone (From Dilaudid) Allergy (Verified 07/30/25 09:46) Vomiting perflutren Allergy (Verified 07/30/25 09:46) Back Pain prednisone Allergy (Verified 07/30/25 09:46) Unknown HPI Comments Details: 75y/o male comes for follow up. Home sleep test 04/2024 AHI 7 O2 cachorro 78% he was started on AutoPAP and is compliant .He is sleeping better and longer with CPAP. His daytime sleepiness is better. He does not take regular daytime naps. His compliance is 99 % with residual AHI was 0.6 . Median pressure used 9.3 . The mask is causing irritation in the bridge of his nose . History from last visit 03/2025-He has h/o liver failure , hepatic encephelopathy and liver transplant in 2017 . he has been doing well but he had a few episodes of increased ammonia related to leak from his shunt . He usually respond to lactulose. His last episode was 1 year ago.During these episodes he is confused , slow, tremors etc He is here to see if he has any residual effects from hyperammonemia. 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 [facility] Medical History Obstructive sleep apnea hypopnea, severe Hypersomnia Cirrhosis MSSA bacteremia CKD (chronic kidney disease) stage 3, GFR 30-59 ml/min Staphylococcus aureus bacteremia Duodenal ulcer Anemia Acute diastolic (congestive) heart failure Non-rheumatic aortic stenosis PAF (paroxysmal atrial fibrillation) Osteomyelitis Aortic stenosis Duodenitis Hypertension Hypercholesteremia GERD (gastroesophageal reflux disease) Diabetes Fatty liver Gram-positive bacteremia Surgical History History of esophagogastroduodenoscopy (EGD) Liver transplant recipient S/P TAVR (transcatheter aortic valve replacement) Hx of lymph node excision History of back surgery Hx of colonoscopy Liver transplant recipient Family History Mother Myocardial infarct Social History Household Members: Family Housing: House Are you a primary physician locums urgent care to a significant other at home: No Do you presently have visiting nurse or other home services: No Alcohol intake: never Patient Tobacco Use Status: Never used Tobacco Advance Directives Date on File: 05/19/22 service: No Current occupational status: retired Physical Exam Vital Signs: Last Vital Signs Pulse 69 07/30/25 09:46 BP 128/70 07/30/25 09:46 Pulse Ox 100 07/30/25 09:46 Oxygen Delivery Method Room Air 07/30/25 09:46 BMI result Body Mass Index 34.1 Assessment & Plan Assessment & Plan (1) Obstructive sleep apnea hypopnea, severe: Code(s): G47.33 - Obstructive sleep apnea (adult) (pediatric) Category: Medical (2) Hepatic encephalopathy: Comment: h/o hepatic encephalopathy with delirium relate dto hyperammonemia Code(s): K76.82 - Hepatic encephalopathy Category: Medical (3) Hypersomnia: Code(s): G47.10 - Hypersomnia, unspecified Category: Medical Plan His cognitive exam was normal MMSE- 25/30 Continue CPAP 5-20 cm of water . patient is 100 % compliant and his night time sleep and daytime symptoms have improved significantly. New mask fitting and suggested mask covers F/u with hepatology Coding Level of Care Code Est Pt Level 4 (80037) Diagnoses Obstructive sleep apnea hypopnea, severe G47.33 Hepatic encephalopathy K76.82 Hypersomnia G47.10
--- OUTSIDE RECORDS SUMMARY | 2025-07-30 11:13 | XMS_ITS | Patient Health Record ---
[facility] Address [address] [place] [address] Care Team Providers Care Family Practitioner Name Role Phone Yonas Oconnor MD Primary Care Provider Lauren Lei Unavailable [phone] Allergies Allergen (clinical drug ingredient) Drug/Non Drug [...] Problem Type II diabetes mellitus without complication ([id number]) Type 2 diabetes mellitus without complication, without long-term current use of insulin (E11.9) Active confirmed Plan Of Treatment No Information Insurance Providers Payer Name Payer Address Payer Phone Subscriber Number Group Number Insured Name Patient Relationship to Insured Coverage Start Date Coverage End Date [facility] [address] [place] [address] [id number] Boaz Bangura Self - patient is the [...]
--- OUTSIDE RECORDS SUMMARY | 2025-07-30 11:13 | XMS_ITS ---
Author Name [facility] Organization Unknown Care Team Organization Name Specialty Phone Email Start Date End [facility] 05/16/2025
--- OUTSIDE RECORDS SUMMARY | 2025-07-30 11:13 | XMS_ITS | Clinical Summary ---
Author Organization [facility] Address [address] [place] [phone] Phone Care Team Providers Care Evp Chief Exploration Officer Name Role Phone Unavailable Primary Care [...] It is not the complete legal health record.[facility]
== END 2025-07-30 10:31 | disposition home or self-care (01) ==
LOC: HO.HSMS 09:45
PROVIDERS: PCP Internal Medicine; Visit Provider Psychiatry & Neurology Neurology
DX: G47.33 Obstructive sleep apnea (adult) (pediatric) (principal); K76.82 Hepatic encephalopathy; G47.10 Hypersomnia, unspecified
CPT/HCPCS: 99214

== ENCOUNTER → 2025-07-30 09:44 | Outpatient (BNVA) | payer MEDICARE, SELFPAY | PROVIDERS: PCP Internal Medicine; Visit Provider Psychiatry & Neurology Neurology | DX: G47.33 Obstructive sleep apnea (adult) (pediatric) (principal); Z99.89 Dependence on other enabling machines and devices; G47.10 Hypersomnia, unspecified; K76.82 Hepatic encephalopathy; Z94.4 Liver transplant status; Z95.2 Presence of prosthetic heart valve | CPT/HCPCS: 99212 ==

== ENCOUNTER 2025-08-07 11:28 | Inpatient (IN) | payer MEDICARE, SELFPAY ==
--- NOTE | ~2025-08-07 | CT_ITS ---
EXAMINATION: CT brain without contrast and chest x-ray. CLINICAL INDICATION: Altered mental status. COMPARISON: Chest x-ray 2 views 01/27/2025. CT brain 03/31/2023. TECHNIQUE: 5 mm thin axial and reformatted 2 mm thin sagittal and coronal images of brain were obtained. DLP 748. One or more of the following dose reduction techniques were used: Automated exposure control, adjustment of the mA and/or kV according to patient size, and/or iterative reconstruction. Unless otherwise specified, incidental findings do not require dedicated imaging follow-up. FINDINGS: BRAIN: There is no acute intra-axial, extra-axial bleed, masses or collection. There is no acute infarction evolution. There is no edema. The matt to white matter differentiation is maintained normal. The lateral ventricles are symmetrical in size and configuration but mildly enlarged. Bone windows reveal no calvarial abnormality. There is no scalp soft tissue abnormality. Bilateral paranasal sinuses and mastoid air cells are well-aerated. CHEST: The lungs are well-expanded and clear. The heart size and pulmonary vascularity is normal. There is valvular cardiac stent in place. There is no pleural effusion or thickening. Mild spondylosis of dorsal spine is noted. CT/CT head/brain wo IV con Impression: No acute intracranial process seen. IMPRESSION: No acute intracranial process seen. Electronically signed by: John Simons MD 08/07/2025 01:22 PM EST
[2025-08-07 11:37] VITALS: BP 150/80; PULSE 88; O2SAT 100
[2025-08-07 11:38] VITALS: BP 160/76; PULSE 86; RESP 16; TEMP 36.4; O2SAT 100; BMI 37.0
[2025-08-07 12:21] LABS: MANUAL DIFF FLAG NO
[2025-08-07 12:28] LABS: Hematocrit 29.8 % (42.0-52.0); Hemoglobin 10.9 g/dl (14.0-18.0); Imm Gran Abs Auto 0.01 X10*3/uL (0.00-0.03); Imm Gran Pct Auto 0.3 % (0.0-0.4); Lymphocytes Absolute Auto 1.7 X10*3/uL (1.2-4.9); Mean Corpuscular HGB Conc 36.6 g/dl (31.0-36.0); Mean Corpuscular Hemoglobin 34.9 pg (27.0-33.0); Mean Corpuscular Volume 95.5 fL (80.0-98.0); NRBC Abs Auto 0.000 X10*3/uL (0.0-0.012); NRBC Pct Auto 0.0 /100WBC (0.0-0.2); Platelet Count 131 X10*3/uL (160-400); Red Blood Count 3.12 X10*6/uL (4.60-5.80); White Blood Count 3.4 X10*3/uL (4.8-10.8)
[2025-08-07 12:30] LABS: Ammonia 152 umol/L (13-55)
[2025-08-07 12:37] LABS: Alanine Aminotransferase 26 U/L (0-40); Albumin Level 3.8 g/dL (3.5-5.0); Alkaline Phosphatase 96 U/L (39-117); Anion Gap 13 (12-20); Aspartate Amino Transferase 41 U/L (5-37); Blood Urea Nitrogen 32 mg/dL (9-16); Calcium 9.1 mg/dL (8.4-10.2); Carbon Dioxide 16 mmol/L (22-29); Chloride 116 mmol/L (96-108); Creatinine Clr Calc Pharmacy 29.5; Estimated Glomerular Filt Rate 33; Potassium 4.9 mmol/L (3.3-5.1); Sodium 140 mmol/L (135-145); Total Protein 6.8 g/dL (6.5-8.0)
[2025-08-07 12:43] LABS: Troponin-I High Sensitivity 7.1 ng/L (<3.5-35.0)
--- NOTE | 2025-08-07 12:43 | ED.AMS ---
HPI - Altered Mental Status General Chief Complaint: Altered Mental Status Stated Complaint: DR TOLD PT TO COME FOR ABN LABS Time Seen by Provider: 08/07/25 12:35 Source: patient and family (Spouse) Mode of arrival: ambulatory History of Present Illness ED Provider: DR. Young HPI narrative: 75-year-old male history of aortic stenosis s/p TAVR procedure, on Eliquis for paroxysmal AFib, history of MSSA bacteremia, HTN, HLD, CKD stage 3, CHF, history of Luz cirrhosis s/p hepatic transplant following with [facility] clinic, episodes of hepatic encephalopathy to do hyperammonemia, patient feeling constipated for the last 3 days however had last bowel movement was this morning and was normal, brought the patient for confusion and disorientation, also noted increased tremor to both upper extremities for the past 2-3 days, no fall, no head injury, otherwise no fever, chills, no CP, no SOB, no abdominal pain, no nausea, no vomiting, no diarrhea. Related Data Home Medications ?Medication ?Instructions ?Recorded ?Confirmed amlodipine 10 mg tablet 10 mg PO DAILY 03/31/23 05/14/25 ascorbic acid (vitamin C) 500 mg 500 mg PO DAILY 03/31/23 05/14/25 tablet atorvastatin 20 mg tablet 20 mg PO DAILY 03/31/23 05/14/25 furosemide 40 mg tablet 40 mg PO DAILY 03/31/23 05/14/25 lisinopril 2.5 mg tablet 2.5 mg PO DAILY 03/31/23 05/14/25 sennosides 8.6 mg tablet (senna) 17.2 mg PO DAILY 03/31/23 05/14/25 tacrolimus 0.5 mg capsule, 0.5 mg PO BEDTIME 03/31/23 05/14/25 immediate-release cholecalciferol (vitamin D3) 25 25 mcg PO DAILY 04/13/23 05/14/25 mcg (1,000 unit) tablet multivitamin 1 tab PO DAILY 04/13/23 05/14/25 pen needle, diabetic 32 gauge x #1,200 ea 04/27/23 05/14/2532 (BD Loretta 2nd Gen Pen Needle) tirzepatide 5 mg/0.5 mL 5 mg subcut QWEEK 08/07/24 05/14/25 subcutaneous pen injector (Mounjaro) glipizide 5 mg tablet 5 mg PO DAILY 02/06/25 05/14/25 Previous Rx's ?Medication ?Instructions ?Recorded lactulose 10 gram/15 mL oral See Rx Instructions .Route 04/02/23 solution .COMPLEX #3,000 mL omeprazole 20 mg capsule,delayed 20 mg PO DAILY #90 caps 07/02/25 release apixaban 5 mg tablet (Eliquis) 5 mg PO BID #180 tabs 07/16/25 Allergies Allergy/AdvReac Type Severity Reaction Status Date / Time ibuprofen (IBUPROFEN) Allergy Severe SWELLING Verified 08/07/25 11:42 peanut (PEANUTS) Allergy Unknown SWELLING Verified 08/07/25 11:42 hydromorphone (From Dilaudid) Allergy Vomiting Verified 08/07/25 11:42 perflutren Allergy Back Pain Verified 08/07/25 11:42 prednisone Allergy Unknown Verified 08/07/25 11:42 Review of Systems Review of Systems: All other systems are reviewed and are negative Constitutional: Reports as per HPI and Reports no additional constitutional complaints Eyes: Reports as per HPI and Reports no additional eye complaints Reports system reviewed and no additional complaints, except as documented Cardiovascular: Reports as per HPI and Reports no additional cardiovascular complaints Respiratory: Reports as per HPI and Reports no additional respiratory complaints Gastrointestinal: Reports as per HPI and Reports no additional gastrointestinal complaints Genitourinary: Reports no additional female genitourinary complaints Musculoskeletal: Reports no additional musculoskeletal complaints Skin/Breast: Reports system reviewed and no additional complaints, except as docu Psychiatric: Reports no additional psychiatric complaints Endocrine: Reports no additional endocrine complaints Hematologic/Lymphatic: Reports no additional hematologic/lymphatic complaints Allergic/Immunologic: Reports no additional allergic/immunologic complaints Reports system reviewed and no additional complaints, except as documented and Reports Abnormal speech present [facility] Past Medical History Medical History Obstructive sleep apnea hypopnea, severe Hypersomnia Cirrhosis MSSA bacteremia CKD (chronic kidney disease) stage 3, GFR 30-59 ml/min Staphylococcus aureus bacteremia Duodenal ulcer Anemia Acute diastolic (congestive) heart failure Non-rheumatic aortic stenosis PAF (paroxysmal atrial fibrillation) Osteomyelitis Aortic stenosis Duodenitis Hypertension Hypercholesteremia GERD (gastroesophageal reflux disease) Diabetes Fatty liver Gram-positive bacteremia Surgical History History of esophagogastroduodenoscopy (EGD) Liver transplant recipient S/P TAVR (transcatheter aortic valve replacement) Hx of lymph node excision History of back surgery Hx of colonoscopy Liver transplant recipient Family History Family History Mother Myocardial infarct Social History Social History Household Members: Family Housing: House Are you a primary furnace caretaker to a significant other at home: No Do you presently have visiting nurse or other home services: No Alcohol intake: never Patient Tobacco Use Status: Never used Tobacco Smoked in Last 30 Days: No Use of substances other than those prescribed or required for medical reasons: No Advance Directives: Yes Advance Directives on File: Yes Advance Directives Date on File: 05/19/22 service: No Current occupational status: retired Physical Exam ED Vital Signs: Vital Signs - 24 hr 08/07/25 11:38 Temperature 97.5 F Pulse Rate 86 Respiratory Rate 16 Blood Pressure 160/76 H Pulse Oximetry 100 Oxygen Delivery Method Room Air BMI result Body Mass Index 37.0 Vital signs have been reviewed and appear to be correct. Blood pressure elevated. Heart rate normal. Respiratory rate normal. Temperature normal. Oxygen saturation normal. Appearance: Alert. Slightly confused, disoriented to time.. No acute distress. Head: Normal external exam. Normocephalic. Atraumatic. No Krishnamurthy signs noted. No raccoon eyes noted Eyes: PERRLA. EOMI. Conjunctiva and sclera normal. Eyelids normal. ENT: TM's Normal. Pharynx normal. Uvula midline. Moist mucous membranes. No trismus noted. No drooling noted. No muffled voice noted. Neck: Normal inspection. Neck supple. FROM. No adenopathy. Thyroid Normal. No meningeal signs. No neck mass noted. CVS: Normal heart rate and rhythm. Heart sound normal. No murmurs noted. Pulses normal throughout. Respiratory: No respiratory distress. Painless inspiration. Breath sounds normal. No wheezes/rales/rhonchi noted. Chest nontender. No accessory muscle usage noted or decreased air movement noted. Abdomen: Soft and nontender. Bowel sounds normal in all 4 quadrants. No distention noted. No organomegaly noted. No visible injury noted. Back: No CVA tenderness. Full range of motion noted. Skin: Skin warm and dry. Normal skin color. Normal skin turgor. No rashes/lesions/lacerations noted. Extremities: No lower extremity edema. Extremities exhibit normal range of motion. Extremities nontender. Neuro: Mental status: Normal attention, orientation, memory, and affect. Cranial nerves: Pupils are equal, round and reactive to light, EOMI, visual gerard are fall, face is symmetric, facial sensations are normal. Motor examination normal muscle tone, strength to 4 extremities. DTR are +2, planter's are flexor. Sensory exam; normal coordination, no ataxia, gait stable. Cerebellar exam: Dnldor-qy-cmah and iqge-sr-gvlp is normal. Extrapyramidal system: No tremors, no rigidity with normal facial expressions. Pronator drift not present, +asterixis Course Reevaluation(s) Reevaluation #1: 75-year-old male history of hepatic encephalopathy secondary to LUZ, patient's confirmed compliance with lactulose home, patient did not have bowel movement for the last 2-3 days patient had bowel movement this morning. Received lactulose in the ED with some improvement of his mentation. Negative CT head and rest of the workup. Time: 14:59 Medications Administered Discontinued Medications Generic Name Dose Route Start Last Admin Trade Name Freq PRN Reason Stop Dose Admin Lactulose 60 gm 08/07/25 12:41 08/07/25 12:53 Lactulose 20 Gm/30 Ml Solution PO 08/07/25 12:42 60 gm ONCE ONE Administration Medical Decision Making Differential Diagnosis Differential Diagnoses: The differential diagnosis associated with the presentation includes (Hepatic encephalopathy, hyperammonemia, UTI, intracranial pathology, electrolyte derangement, severe anemia.) Admission/Observation Consideration of admission/observation: Escalation of care including admission/observation considered Lab Data MDM Lab Attestation statement: I reviewed the patient's lab results. 08/07/25 12:15 08/07/25 12:15 Labs: Lab Results 08/07/25 08/07/25 08/07/25 Range/Units 12:15 12:17 14:42 WBC 3.4 L (4.8-10.8) X10*3/uL RBC 3.12 L (4.60-5.80) X10*6/uL Hgb 10.9 L (14.0-18.0) g/dl Hct 29.8 L (42.0-52.0) % MCV 95.5 (80.0-98.0) fL MCH 34.9 H (27.0-33.0) pg MCHC 36.6 H (31.0-36.0) g/dl RDW 13.1 (11.0-16.0) % Plt Count 131 L (160-400) X10*3/uL MPV 9.1 L (9.4-12.4) fL Immature Gran % (Auto) 0.3 (0.0-0.4) % Neut % (Auto) 35.8 L (45-73) % Lymph % (Auto) 50.1 H (20-40) % Gates % (Auto) 8.5 (2-11) % Eos % (Auto) 4.4 H (0-4) % Baso % (Auto) 0.9 (0-2) % Lymph # (Auto) 1.7 (1.2-4.9) X10*3/uL Gates # (Auto) 0.3 (0.1-1.2) X10*3/uL Eos # (Auto) 0.2 (0.0-0.4) X10*3/uL Baso # (Auto) 0.0 (0.0-0.2) X10*3/uL Abs Immat Gran (auto) 0.01 (0.00-0.03) X10*3/uL Absolute Neuts (auto) 1.2 L (2.0-8.3) x10*3/uL Absolute Nucleated RBC 0.000 (0.0-0.012) X10*3/uL Nucleated RBC % (auto) 0.0 (0.0-0.2) /100WBC Sodium 140 (135-145) mmol/L Potassium 4.9 (3.3-5.1) mmol/L Chloride 116 H (96-108) mmol/L Carbon Dioxide 16 L (22-29) mmol/L Anion Gap 13 (12-20) BUN 32 H (9-16) mg/dL Creatinine 1.97 H (0.5-1.4) mg/dL Estim Creat Clear Calc 29.5 Estimated GFR 33 Random Glucose 176 H (60-115) mg/dL Lactic Acid 1.4 (0.5-2.0) mmol/L Calcium 9.1 (8.4-10.2) mg/dL Total Bilirubin 0.7 (0.0-1.0) mg/dL Direct Bilirubin 0.2 (0.0-0.5) mg/dL AST 41 H (5-37) U/L ALT 26 (0-40) U/L Alkaline Phosphatase 96 (39-117) U/L Ammonia 152 H (13-55) umol/L Troponin I High Sens 7.1 (<3.5-35.0) ng/L Total Protein 6.8 (6.5-8.0) g/dL Albumin 3.8 (3.5-5.0) g/dL Urine Color Yellow Urine Appearance Clear Urine pH 6.5 (5.0-9.0) Ur Specific [place] 1.015 (1.005-1.025) Urine Protein Negative (Neg-Trace) mg/dL Urine Glucose (UA) Negative (Negative) mg/dL Urine Ketones Negative (Negative) mg/dL Urine Blood Negative (Negative) Urine Nitrite Negative (Negative) Ur Leukocyte Esterase Negative (Negative) Independent Interpretation I performed an independent interpretation of an: Plain X-Ray (Chest: No acute intrathoracic pathology.) and CT Scan (Head: No acute intracranial pathology.) Radiology Impression Discussion of test interpretation with radiology: I have reviewed the radiologist's reading. Discharge Plan Discharge Clinical Impression: Hepatic encephalopathy, Hyperammonemia Patient Disposition: Admitted As Inpatient Print Language: Stateless
--- NOTE | 2025-08-07 12:55 | HO.NURTONUR ---
called EMS this am stating pt began w/ uncontrollable shaking and incr. alt mental status. Per , this is what happens when his NH3 is elevated. Today NH3 is 153. Pt was tx's w/ lactulose. also states he took his lactulose this am, but no bm's x 3 days. Pt is A&O x 4, but forgetful and only c/o's of increased weakness.
--- OUTSIDE RECORDS SUMMARY | 2025-08-07 14:20 | XMS_ITS | Patient Health Record ---
[facility] Address [address] [place] [address] Care Team Providers Care Park Manager Name Role Phone Yonas Oconnor MD Primary Care Provider Lauren Lei Unavailable [phone] Allergies Allergen (clinical drug ingredient) Drug/Non Drug [...] Problem Type II diabetes mellitus without complication ([id number]) Type 2 diabetes mellitus without complication, without long-term current use of insulin (E11.9) Active confirmed Plan Of Treatment No Information Insurance Providers Payer Name Payer Address Payer Phone Subscriber Number Group Number Insured Name Patient Relationship to Insured Coverage Start Date Coverage End Date [facility] [address] [place] [address] [id number] Boaz Bangura Self - patient is the [...]
--- OUTSIDE RECORDS SUMMARY | 2025-08-07 14:20 | XMS_ITS | Clinical Summary ---
Author Organization [facility] [address] [place] [address] [place] [phone] Phone Care Team Providers Care Metal Pourer Name Role Phone Juan Carlos Freeman MD [...] tablets (20 mg total) by mouth. 07/26/20 Active apixaban (Eliquis) 5 mg tablet Take [...] (two) times a day before meals. Active amLODIPine (NORVASC) 10 mg tablet TAKE ONE TABLET BY MOUTH EVERY DAY 90 tablet 1 05/11/20 Active lactulose (CHRONULAC) solution TAKE 30ML BY MOUTH DAILY IF NEEDED. TITRATE TO 2 TO 3 BOWEL MOVEMENTS. 2700 mL 07/12/20 Active lactulose (CHRONULAC) solution Take 30 mL (20 g total) by mouth 1 (one) time each day if needed (hyperammonem ia). Titrate to 2 to 3 bowel movements 2700 mL 12/23/19 25 025 Discontinued Active Problems Problem Noted Date Diagnosed Date Constipation 03/29/2025 Sarcoid 09/01/2024 BIRDIE on CPAP 07/26/2024 Iron deficiency anemia 08/16/2023 Atrial fibrillation ([facility]/HCC V24, CMS/HCC V28) 0 03/25/2023 Congestive heart failure (CMS/HCC V24, CMS/[facility] V 28) 03/25/2023 Elevated serum creatinine 02/09/2023 Hyperammonemia (CMS/HCC V24) 02/09/2023 Neutropenia (CMS/HCC V24) 02/09/2023 S/P TAVR (transcatheter aortic valve replacement ) 02/09/2023 Anemia in chronic kidney disease 09/03/2022 Stage 4 chronic kidney disease (CMS/HCC V24, CMS /HCC V28) 09/03/2022 Renal osteodystrophy 09/03/2022 Ulcer of lower extremity (CMS/HCC V24, CMS/[facility] V 28) 09/03/2022 Anemia 08/03/2022 Ascites 08/03/2022 Acute nontraumatic kidney injury ([facility]24) 1 10/03/2021 Disorder of brain 08/03/2022 End stage liver disease ([facility] V24, [facility] V2 8) 08/03/2022 Hepatic encephalopathy ([facility] V24, [facility] V28 ) 08/03/2022 Non-pressure chronic ulcer o f unspecified part of right lower leg limited to breakdown of skin ([facility] V24, [facility] V28) 08/03/2022 Obesity 08/03/2022 Type 2 diabetes mellitus without complication Overview (06/27/2025): 06/27/25 Regulatory IMO Update Osteomyelitis ([facility] V24, [facility] V28) 022 Gastritis 06/08/2022 Overview (09/01/2024): Seen on endoscopy at [facility] on 06/06/22. Ulcer, duodenum peptic 06/08/2022 Overview (09/01/2024): Seen on endoscopy at [facility] on 06/06/22. CKD (chronic kidney disease) stage 3, GFR 30-59 ml/min ([facility] V24, [facility] V28) 04/19/2020 Essential hypertension 02/25/2018 History of liver transplant ([facility] V24, [facility] V28) 08/24/2017 Type 2 diabetes mellitus wit h chronic kidney disease, without long-term current use of insulin ([facility] V[facility], [facility] V28) 08/24/2017 Vertebral osteomyelitis ([facility], [facility] V2 8) 06/12/2017 Hyperlipidemia 05/10/2017 [...] of kidney 10/20/2011 Overview (09/01/2024): Nephrolithiasis Cirrhosis ([facility] V24, [facility] V28) 02/12/2010 Encounters Date Type Department Care Team Description 07/27/2025 10:00 AM EDT Office Visit Adult Medicine [address] [phone] Juan Carlos Freeman MD Encounter for subsequent annual wellness visit (AWV) in Medicare patient (Primary Dx); Routine general medical examination at a health care facility; History of liver transplant ([facility] V24, [facility] V28); Type 2 diabetes mellitus with chronic kidney disease, without long-term current use of insulin, unspecified CKD stage ([facility] V24, [facility] V28); Primary hypertension; Hyperlipidemia, unspecified hyperlipidemia type; Atrial fibrillation, unspecified type ([facility] V24, [facility] V28); Obesity (BMI 30-39.9); Encounter for screening for malignant neoplasm of prostate 07/17/2025 Results Follow-Up Adult [address] [phone] Juan Carlos Freeman MD from Last 3 Months Immunizations Immunization Administration Dates Next Due Hepatitis A-Hepatitis B Adul t (Twinrix) 18yo and older 06/11/2010,12/05/2009,11/07/2009 Hepatitis B (Zqbadmd-T-Yczkg , Recombivax HB-Adult) 19yo and older 09/03/2015,04/03/2015,03/01/2015,03/01 Influenza trivalent, 0.5mL ( Fluad) 65yo and older 07/27/2025,12/22/2024,06/19/2021,08/22 Influenza trivalent, 0.5mL, preservative free (Fluarix; FluLaval; Fluzone) ages 6mo and older (Afluria) 3 years and older 07/28/2021,06/27/2020,09/03/2015,09/10,07/24/2010 Influenza, Unspecified 09/02/2018,2016,08/11/2016,09/15,09/10/2011,06/27/2010 Moderna SARS-CoV-2 COVID-19, mRNA, LNP-S, preservative free 06/19/2021 Pneumococcal conjugate 13 va lent (Prevnar 13, PCV13) 2mo and older 10/29/2015 Pneumococcal polysaccharide 23 valent (Pneumovax 23) 2yo and older 04/24/2022,06/25/2014 Td Tetanus diptheria, preser vative free (Tenivac) 7yo and older 07/27/2025 Surgical History Surgery Date Site/Laterality Comments COLONOSCOPY 10/17/09 PROCEDURE: HISTORICAL COLONOSCOPY; COMMENT: diverticulosis; repeat in ten years ESOPHAGOGASTRODUODENOSCOPY 10/17/09 PROCEDURE: [place] ESOPHAGOGASTRODUODENOSCOPY TRANSORAL DIAGNOSTIC; COMMENT: normal, without varices; repeat in two years ESOPHAGOGASTRODUODENOSCOPY 09/18/11 PROCEDURE: HI ESOPHAGOGASTRODUODENOSCOPY TRANSORAL DIAGNOSTIC; COMMENT: normal, without varices; repeat in two years ESOPHAGOGASTRODUODENOSCOPY 01/09/14 PROCEDURE: HI ESOPHAGOGASTRODUODENOSCOPY TRANSORAL DIAGNOSTIC; COMMENT: No esophageal varices; [...] duodenum peptic; COMMENT: Seen on endoscopy at [facility] on 06/06/22. Gastritis 06/08/2022 DX:Gastritis; CO MMENT: Seen on endoscopy at [facility] on 06/06/22. Family History Medical History Relation [...] you may not have stable housing? No 07/26/2025 Food Access & Nutrition Answer Date Rec orded Do you have access to a vari ety of food including fruits and vegetables? Yes 07/26/2025 Access to Healthcare Answer Date Record ed Within the last 3 months, ho w many times did you visit the emergency department for your medical care? 1 07/26/2025 Health Literacy Answer Date Recorded How often do you need to hav e someone help you when you read instructions, pamphlets, or other written material from your doctor or pharmacy? Never 07/26/2025 Caregiver: How often do you need to have someone help you when you read instructions, pamphlets, or other written material from your doctor or pharmacy? Not on file 07/26/2025 Financial Risk Answer Date Recorded How hard is it for you to pa y for the very basics like food, housing, medical care, and air conditioning / heating? Not very hard 07/26/2025 Transportation Answer Date Recorded Has the lack of transportati on kept you from meetings, work, or from getting things needed for daily living? No Has the lack of transportati on kept you from medical appointments or from getting medications? No 07/26/2025 Social Isolation Answer Date Recorded How often do you feel lonely or isolated from th ose around you? Never 07/26/2025 Food Risk Answer Date Recorded Within the past 12 months we worried whether our food would run out before we got money to buy more. Never true 07/26/2025 Within the past 12 months th e food we bought just didn't last and we didn't have money to get more. Never true 07/26/2025 Dependent Care Answer Date Recorded Do you need help finding or paying for care for your loved ones. For example, childcare teacher or elderly care for an older adult? No 07/26/2025 Education Answer Date Recorded Do you think completing more education or training, like finishing a GED, going to college, or learning a trade, would be helpful for you? No 07/26/2025 Employment and Income Answer Date Recor ded During the last four weeks, have you been actively looking for work? No 07/26/2025 Living Situation Answer Date Recorded What is your living situation? Unrecognized valu e 07/26/2025 Sex and Gender Information Value Date Recorded Sex Assigned at Not on file Legal Sex Male 2:02 AM EST Gender Identity Not on file Sexual Orientation Not on file Obstetrics History Last Filed Vital Signs Vital Sign Reading Time Taken Comments Blood Pressure 116/54 07/27/2025 9:51 AM EDT Pulse 67 07/27/2025 9:51 AM EDT Temperature 36.4 C (97.5 F) 07/27/2025 9:51 AM EDT Respiratory Rate 12 12/22/2024 9:25 AM EDT Oxygen Saturation - - Inhaled Oxygen Concentration - - Weight 82.6 kg (182 lb) 07/27/2025 9:51 AM EDT Height 157.5 cm (5' 2 ) 07/27/2025 9:51 AM EDT Body Mass Index 33.29 07/27/2025 9:51 AM EDT Plan of Treatment Upcoming Encounters Date Type Department Care Team (Late st Contact Info) Description 07/30/2026 10:00 AM EST Office Visit Adult Medicine [facility] [address] [place] [phone] Juan Carlos Freeman MD [address] [place] [address] Health Maintenance Due Date Last Done Comments Diabetes: Annual Foot Exam 09/27/2025 03/14/2024 P ostponed from 03/14/2025 (Patient Refused) Diabetes: Blood Sugar Control Test (HGBA1C) 10/31/2025 04/30/2025, 05/11/2024 Diabetes: Annual Urine Albumin-Creatinine Ratio (uACR) 06/12/2026 06/12/2025, 04/30/2025, 12/19/2024, Additional history exists Diabetes: Annual GFR (Glomerular Filtration Rate) 06/12/2026 06/12/2025, 06/12/2025, 04/30/2025, Additional history exists Hypertension/CHF/CAD Annual BMP Blood Test 06/12/2026 06/12/2025, 06/12/2025, 04/30/2025, Additional history exists Social Influencers of Health Screening 07/26/2026 07/26/2025 Falls Risk Assessment 07/27/2026 07/27/2025 Medicare Annual Wellness Visit 07/27/2026 07/27/2025 COVID-19 Vaccine ( season) 2026 06/19/2021, 11/21/2020, 10/24/2020 Postponed from 05/28/2025 (Patient Refused) Diabetes: Annual Retina Eye Exam 08/19/2026 07/05/2024 Postponed from 07/05/2025 (Patient Refused) Zoster Vaccines (1 of 2) 08/19/2026 12/19/2014 Pos tponed from 02/13/2015 (Patient Refused) Colorectal Cancer Screening: Colonoscopy 04/22/2027 04/22/2017 Cholesterol Screening (Lipid Panel) 07/16/2030 07/16/2025, 04/30/2025, 03/21/2025, Additional history exists DTaP,Tdap,and Td Vaccines (4 - Td or Tdap) 07/27/2035 07/27/2025, 03/01/2015, 06/04/2009 Hepatitis A Vaccines Aged Out 06/11/2010, 12/05/2009, 11/07/2009 No longer eligible based on patient's age to complete this topic Hepatitis C Screening Completed 02/28/2015 Hepatitis B Vaccines Completed 09/03/2015, 04/03/2015, 03/01/2015, Additional history exists Pneumococcal Vaccine: 50+ Years Completed 04/24/2022, 10/29/2015, 06/25/2014 RSV Immunization Adult Patients Completed 06/24/2023 Depression Screening Completed 07/26/2025 Influenza Vaccine Completed 07/27/2025, , 06/24/2023, Additional history exists HIB Vaccines Aged Out [...] PANEL WITH REFLEX TO DIRECT LDL Routine 07/16/2025 9:40 AM EDT Hyperlipidemia, unspecified hyperlipidemia type from Last 3 Months Results * (ABNORMAL) Lipid panel with reflex to direct LDL (07/16/2025 9:40 AM EDT) Cholesterol 129 0 - 200 mg/dL LAB CHEMISTRY METHOD 07/16/2025 1:53 PM [facility] Triglycerides 138 0 - 150 mg/dL LAB CHEMISTRY METHOD 07/16/2025 1:53 PM [facility] HDL 39(L) >=40 mg/dL LAB CHEMISTRY METHOD 07/16/2025 1:53 PM [facility] LDL Calculated 62 0 - 100 mg/dL LAB CHEMISTRY METHOD 07/16/2025 1:53 PM [facility] Comment:Estimated LDL Calcul ated using equation: Total cholesterol - HDL cholesterol - (Triglycerides/5) VLDL Cholesterol Vadim 27.6 mg/dL LAB CHEMISTRY METHOD 07/16/2025 1:53 PM [facility] Non HDL Chol. (LDL+VLDL) 90 <145 mg/dL LAB CHEMISTRY METHOD 07/16/2025 1:53 PM [facility] Chol/HDL Ratio 3.3 0.0 - 4.4 LAB CHEMISTRY METHOD 07/16/2025 1:53 PM [facility] Blood Venous blood specimen / Unknown Venipuncture / Unknown 07/16/2025 9:40 AM EDT 07/16/2025 9:40 AM EDT us Juan Carlos Freeman MD LAB BLOOD ORDERABLES Final Result [facility] [address] [place] [address], [place] [phone] from Last 3 Months Insurance MEDICARE [facility] Care Teams Metal Pourer Relationship Specialty Start Date End Date Juan Carlos Freeman MD [address] [place] [address] PCP - General 07/30/22
--- OUTSIDE RECORDS SUMMARY | 2025-08-07 14:20 | XMS_ITS | Clinical Summary ---
Author Organization [facility] Address [address] [place] [phone] Phone Care Team Providers Care Piercer Operator Name Role Phone Unavailable Primary Care Provider [...] It is not the complete legal health record.[facility]
--- OUTSIDE RECORDS SUMMARY | 2025-08-07 14:20 | XMS_ITS | Encounter Summary ---
Author Organization [facility] Address [address] [place] [address] Care Team Providers Care Gear Keeper Name Role Phone Juan Carlos Freeman MD Primary Care Provider [phone] Encounter Details Date Type Department Care Team (Late st Contact Info) Description 07/17/2025 Results Follow-Up Adult Medicine [facility] [address] [place] [phone] Juan Carlos Freeman MD [address] [place] [address] Social History Tobacco Use Types Packs/Day Years [...] for your loved ones. 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 Unrecognized valu e 12/21/2024 Sex and Gender Information Value Date Recorded Sex Assigned at Not on file Legal Sex Male 2:02 AM EST Gender Identity Not on file Sexual Orientation Not on file documented as of this encounter Plan of Treatment Upcoming Encounters Date Type Department Care Team (Late st Contact Info) Description 07/30/2026 10:00 AM EST Office Visit Adult Medicine [facility] [address] [facility] [place] [address] Juan Carlos Freeman MD [address] [place] [address] documented as of this encounter Visit Diagnoses Not on filedocumented in this encounter Additional Health Concerns Assessment Noted Time PHQ-9 Depression Total Score: 0 12/22/19 25 5:24 PM EDT documented as of this encounter Care Teams Gear Keeper Relationship Specialty Start Date End Date Juan Carlos Freeman MD [address] [place] [address] PCP - General 07/30/22 documented as of this encounter
[2025-08-07 14:51] LABS: Appearance Urine Clear; Glucose Urine UA Negative (Negative); PH 6.5 (5.0-9.0); Specific Gravity - Urine 1.015 (1.005-1.025)
--- NOTE | 2025-08-07 15:46 | PHA.MEDREC ---
Addendum entered by Katey Olmos RPh 08/07/25 15:52: Reviewed by [facility] Original Note: Pharmacy Consult ? Medication Reconciliation Pharmacy has completed the medication reconciliation. Spoke with pt spouse at bedside and she confirmed pt medications. Pt takes his Mounjaro once a week on Sundays and took it this past Wednesday (08/05).
--- NOTE | 2025-08-07 15:59 | PM.IMHP ---
History of Present Illness Date of Service: 08/07/25 Chief Complaint: Confusion 75 M s/p liver transplant for ADKINS cirrhosis in 2017 at [facility] on tacrolimus, AoS s/p TAVR, pAF on apixaban, HTN, CKD3, history of recurrent hepatic encephalopathy, last episode was last April treated in ED and release. He is accompanied by his who sates that has not been having bowel bowel for several days despite having taking lactulose on regular basis. Today he was noted to be confused/disorientation/asterixis which the state is characteristic for hepatic encephalopathy. Ammonia level is 156, given lactulose 60 and has had a bowel movment. He has no fever or other sings of acute infection and states that this is not unsual for his hepatic ncephalopathy Review of Systems Review of Systems: Confusion, no fever, no has tremors in the hand, no bowel mevement in a few days according to [facility] Medical History Obstructive sleep apnea hypopnea, severe Hypersomnia Cirrhosis MSSA bacteremia CKD (chronic kidney disease) stage 3, GFR 30-59 ml/min Staphylococcus aureus bacteremia Duodenal ulcer Anemia Acute diastolic (congestive) heart failure Non-rheumatic aortic stenosis PAF (paroxysmal atrial fibrillation) Osteomyelitis Aortic stenosis Duodenitis Hypertension Hypercholesteremia GERD (gastroesophageal reflux disease) Diabetes Fatty liver Gram-positive bacteremia Family History Mother Myocardial infarct Surgical History History of esophagogastroduodenoscopy (EGD) Liver transplant recipient S/P TAVR (transcatheter aortic valve replacement) Hx of lymph node excision History of back surgery Hx of colonoscopy Liver transplant recipient Social History Household Members: Spouse Housing: House Are you a primary pediatric care coordinator to a significant other at home: No Do you presently have visiting nurse or other home services: No Alcohol intake: never Patient Tobacco Use Status: Never used Tobacco Smoked in Last 30 Days: No Use of substances other than those prescribed or required for medical reasons: No Currently Displaying Signs/Symptoms of Drug Intoxication Withdrawal: No Have you been hit, kicked, punched, or otherwise hurt by someone within the past year? If so, by whom?: No Do you feel safe in your current relationship?: Yes Is there a partner from a previous relationship who is making you feel unsafe now?: No Are you made to feel afraid or neglected: No Advance Directives: Yes Advance Directives on File: Yes Advance Directives Date on File: 05/19/22 Do you have a plan to hurt others: No Plan Recently lost weight without trying: No How much weight loss: Not applicable Eating poorly because of decreased appetite: No Nutrition screen score: 0 Nutrition Risks: No Nutritional Risk Poor oral hygiene: No service: No Current occupational status: retired Meds Allergies Allergy/AdvReac Type Severity Reaction Status Date / Time ibuprofen (IBUPROFEN) Allergy Severe SWELLING Verified 08/07/25 11:42 peanut (PEANUTS) Allergy Unknown SWELLING Verified 08/07/25 11:42 hydromorphone (From Dilaudid) Allergy Vomiting Verified 08/07/25 11:42 perflutren Allergy Back Pain Verified 08/07/25 11:42 prednisone Allergy Unknown Verified 08/07/25 11:42 Active Medications: Current Medications Calcium Carbonate (Calcium Carbonate 750 Mg Tab.Chew) 750 mg PO Q4H PRN PRN Reason: Heartburn Dextrose (Dextrose 50 % 25 Gm/50 Ml Syringe) 25 gm IVPUSH Q15M PRN; Protocol PRN Reason: per Hypoglycemia Standing Ord. Enoxaparin Sodium (Enoxaparin Sodium 30 Mg/0.3 Ml Syringe) 30 mg SUBCUT Q24H PATRICIA Glucose (Glucose Gel 15 Gm Gel..Gram.) 15 gm PO Q15M PRN; Protocol PRN Reason: per Hypoglycemia Standing Ord. Lactated Ringer's (Lr) 1,000 mls @ 100 mls/hr IVCONT .Q10H PATRICIA Insulin Human Lispro (Insulin Lispro 100 Unit/Ml 3 Ml Vial) 0 unit SUBCUT QIDACHS PATRICIA; Protocol Lactulose (Lactulose 20 Gm/30 Ml Solution) 30 gm PO BID PATRICIA Magnesium Hydroxide (Milk Of Magnesia 30 Ml Oral.Susp) 30 ml PO DAILY PRN PRN Reason: Constipation Melatonin (Melatonin 3 Mg Tablet) 6 mg PO BEDTIME PRN PRN Reason: Insomnia Ondansetron HCl (Ondansetron Hcl 4 Mg/2 Ml Vial) 4 mg IVPUSH Q8H PRN PRN Reason: Nausea and Vomiting Polyethylene Glycol (Polyethylene Glycol 3350 17 Gm Powd.Pack) 17 gm PO DAILY PRN PRN Reason: Constipation Sodium Chloride (0.9 % Sodium Chloride Flush 3 Ml Syringe) 3 ml IVFLUSH QSHIFT [facility] Home Medications ?Medication ?Instructions ?Recorded ?Confirmed ?Last Taken ?Type amlodipine 10 mg tablet 10 mg PO BEDTIME 03/31/23 08/07/25 08/06/25 History ascorbic acid (vitamin C) 500 mg 500 mg PO DAILY 03/31/23 08/07/25 08/07/25 History tablet atorvastatin 20 mg tablet 20 mg PO BEDTIME 03/31/23 08/07/25 08/06/25 History furosemide 40 mg tablet 40 mg PO DAILY 03/31/23 08/07/25 08/07/25 History lisinopril 2.5 mg tablet 2.5 mg PO DAILY 03/31/23 08/07/25 08/07/25 History sennosides 8.6 mg tablet (senna) 17.2 mg PO DAILY 03/31/23 08/07/25 08/07/25 History tacrolimus 0.5 mg capsule, 0.5 mg PO BEDTIME 03/31/23 08/07/25 08/06/25 History immediate-release cholecalciferol (vitamin D3) 25 25 mcg PO DAILY 04/13/23 08/07/25 08/07/25 History mcg (1,000 unit) tablet multivitamin 1 tab PO DAILY 04/13/23 08/07/25 08/07/25 History pen needle, diabetic 32 gauge x #1,200 ea 04/27/23 05/14/25 Unknown History (BD Loretta 2nd Gen Pen Needle) glipizide 5 mg tablet 5 mg PO DAILY@0630 02/06/25 08/07/25 08/07/25 History docusate sodium 100 mg tablet 100 mg PO DAILY PRN Constipation 08/07/25 08/07/25 Unknown History lactulose 10 gram/15 mL oral 30 ml PO DAILY PRN Constipation 08/07/25 08/07/25 08/07/25 History solution omeprazole 20 mg capsule,delayed 20 mg PO DAILY@0630 08/07/25 08/07/25 08/07/25 History release tacrolimus 1 mg capsule, 1 mg PO DAILY 08/07/25 08/07/25 08/07/25 History immediate-release tirzepatide 15 mg/0.5 mL 15 mg subcut MERIDA@0900 08/07/25 08/07/25 08/05/25 History subcutaneous pen injector (Nell) Physical Exam Vital Signs and Narrative: Vital Signs: Last Vital Signs Temp 97.5 F 08/07/25 11:38 Pulse 86 08/07/25 11:38 Resp 16 08/07/25 11:38 BP 160/76 H 08/07/25 11:38 Pulse Ox 100 08/07/25 11:38 O2 Del Method Room Air 08/07/25 11:38 BMI result Body Mass Index 37.0 Const: Other: General: Oriented to self, place and aware of the month Resp: CTA bilateral CVS: S1,S2,RRR GI: +BS, NT, no distention Skin: No rash Neuro: motor grossly intact Psych: appropriate affect Results Labs 08/07/25 12:15 08/08/25 05:24 Labs: Laboratory Results - last 24 hr 08/07/25 08/07/25 08/07/25 12:15 12:17 14:42 MCV 95.5 MCH 34.9 H MCHC 36.6 H RDW 13.1 Plt Count 131 L MPV 9.1 L Immature Gran % (Auto) 0.3 Neut % (Auto) 35.8 L Lymph % (Auto) 50.1 H [place] % (Auto) 8.5 Eos % (Auto) 4.4 H Baso % (Auto) 0.9 Lymph # (Auto) 1.7 [place] # (Auto) 0.3 Eos # (Auto) 0.2 Baso # (Auto) 0.0 Abs Immat Gran (auto) 0.01 Absolute Neuts (auto) 1.2 L Absolute Nucleated RBC 0.000 Nucleated RBC % (auto) 0.0 Anion Gap 13 Estim Creat Clear Calc 29.5 Estimated GFR 33 Random Glucose 176 H Lactic Acid 1.4 Calcium 9.1 Total Bilirubin 0.7 Direct Bilirubin 0.2 AST 41 H ALT 26 Alkaline Phosphatase 96 Ammonia 152 H Troponin I High Sens 7.1 Total Protein 6.8 Albumin 3.8 Urine Color Yellow Urine Appearance Clear Urine pH 6.5 Ur Specific [place] 1.015 Urine Protein Negative Urine Glucose (UA) Negative Urine Ketones Negative Urine Blood Negative Urine Nitrite Negative Ur Leukocyte Esterase Negative Imaging Radiologist's Impressions: Impressions Head CT 08/07/25 13:04 Impression: No acute intracranial process seen. IMPRESSION: No acute intracranial process seen. Electronically signed by: John Simons MD 08/07/2025 01:22 PM EST RP Chest X-Ray 08/07/25 13:06 Impression: No acute intracranial process seen. IMPRESSION: No acute intracranial process seen. Electronically signed by: John Simons MD 08/07/2025 01:22 PM EST RP Assessment and Plan (1) PAF (paroxysmal atrial fibrillation): Status: Acute (2) Hepatic encephalopathy: Status: Acute Plan 75 M s/p liver transplant for ADKINS cirrhosis in 2017 at [facility] on tacrolimus, AoS s/p TAVR, pAF on apixaban, HTN, CKD3, history of recurrent hepatic encephalopathy, last episode was last April treated in ED and release. Here with confusion/disorientation and axterix and high ammonia level c/w hepatic encephalopathy hepatic encephalopathy--No clear cause, may have been triggered by constipation. continue rifaximin + titrate lactulose to 3-4 BM/d liver transplant continue tacrolimus, check level CKD3 with chronic metabolic acidosis SCr at baseline pAF rate-controlled without meds; continue apiaxaban HTN continue meds once med rec done DM2 - correction-dose lispro, glipizide, DM diet, DVT prophyalaxis: Apixiban Full code Quality Stroke Does the patient have a stroke diagnosis?: No VTE Prior VTE?: No VTE Risk Level:: Medical - moderate - high VTE Device Contraindication: Treatment Not Indicated VTE Drug Contraindication: N/A - Med Ordered
[2025-08-07 16:40] LABS: INTERNATIONAL NORM RATIO 1.4 (0.9-1.1); Prothrombin Time 16.5 SEC (11.2-13.5)
[2025-08-07] MEDS: Lactated Ringers 1,000 ML 100 ML IVCONT (17:39)
[2025-08-07 19:08] LABS: Glucose, Whole Blood 127 mg/dL (60-115)
--- NOTE | 2025-08-07 19:34 | HO.NURTONUR ---
Pt BIBA per started w/ uncontrolled shaking and incr. confusion x today. Pt has pmhx of liver transplant approx 7 years ago and when his NH3 becomes elevated this is usually what happens. Per , pt hasnt had a BM x 3 days, but has been taking his lactulose; including this am NH3 150. Pt tx'd w/ 60gm lactulose and has had 3 XL BM's
[2025-08-07 19:39] VITALS: BP 174/87; PULSE 80; O2SAT 95
[2025-08-07 20:03] VITALS: BP 184/85; PULSE 82; RESP 16; TEMP 37.1; O2SAT 95
[2025-08-07 20:51] VITALS: BMI 35.1
--- NOTE | 2025-08-07 20:51 | PC.NURSE ---
Received tiger text from admitting RN Susy regarding pts bp 184/85. Ada text Dr. Mclean and was told to give evening amlodipine and sit pt on side of bed when rechecking. Pt already left floor and message was delivered to Susy RN via [employer] text
[2025-08-07 21:12] VITALS: BP 149/72; PULSE 86; RESP 18; TEMP 36.9; O2SAT 100
[2025-08-07 21:12] LABS: Glucose, Whole Blood 116 mg/dL (60-115)
[2025-08-08 02:57] VITALS: BP 134/61; PULSE 84; RESP 18; TEMP 36; O2SAT 99
[2025-08-08] MEDS: Lactated Ringers 1,000 ML 100 ML IVCONT (05:00)
[2025-08-08 06:08] LABS: Alanine Aminotransferase 30 U/L (0-40); Albumin Level 3.3 g/dL (3.5-5.0); Alkaline Phosphatase 80 U/L (39-117); Anion Gap 13 (12-20); Aspartate Amino Transferase 43 U/L (5-37); Blood Urea Nitrogen 28 mg/dL (9-16); Calcium 8.9 mg/dL (8.4-10.2); Carbon Dioxide 18 mmol/L (22-29); Chloride 120 mmol/L (96-108); Creatinine Clr Calc Pharmacy 28.2; Estimated Glomerular Filt Rate 33; Potassium 4.1 mmol/L (3.3-5.1); Sodium 147 mmol/L (135-145); Total Protein 5.7 g/dL (6.5-8.0)
[2025-08-08 07:02] VITALS: BP 143/67; PULSE 82; RESP 14; TEMP 36.8; O2SAT 99
[2025-08-08 07:19] LABS: Glucose, Whole Blood 113 mg/dL (60-115)
[2025-08-08] MEDS: 0.9 % Sodium Chloride Flush 3 ML SYRINGE IVFLUSH (07:55)
[2025-08-08 09:46] LABS: Ammonia 36 umol/L (13-55)
--- NOTE | 2025-08-08 10:30 | MHC.CM.PN ---
pt lives with and mehul is indepedent and has own ride home dc plan home n/s
--- NOTE | 2025-08-08 10:35 | MHC.CM.PN ---
pt lives with dgter is indepedent her car [employer] parking lot dc planm home n/s
[2025-08-08 11:23] LABS: Glucose, Whole Blood 187 mg/dL (60-115)
[2025-08-08 12:35] LABS: Anion Gap 10 (12-20); Carbon Dioxide 17 mmol/L (22-29); Chloride 118 mmol/L (96-108); Potassium 3.8 mmol/L (3.3-5.1); Sodium 141 mmol/L (135-145)
--- NOTE | 2025-08-08 13:11 | PM.DS ---
DS: Providers Provider Date of Service: 08/08/25 Date of admission: 08/07/25 15:45 Date of discharge: 08/08/25 Primary care physician: Juan Carlos Freeman MD DS: Diagnosis Discharge Diagnosis (1) PAF (paroxysmal atrial fibrillation): Status: Acute (2) Hepatic encephalopathy: Status: Acute DS: Summary Hospital Course Hospital Course: admission Chief Complaint: Confusion 75 M s/p liver transplant for ADKINS cirrhosis in 2017 at [facility] on tacrolimus, AoS s/p TAVR, pAF on apixaban, HTN, CKD3, history of recurrent hepatic encephalopathy, last episode was last April treated in ED and release. He is accompanied by his who sates that has not been having bowel bowel for several days despite having taking lactulose on regular basis. Today he was noted to be confused/disorientation/asterixis which the state is characteristic for hepatic encephalopathy. Ammonia level is 156, given lactulose 60 and has had a bowel movment. He has no fever or other sings of acute infection and states that this is not unsual for his hepatic ncephalopathy Hospital course: Patient was admitted and given Lactulose with good effect, by the next day of hospitalization, his mental status had returned to baseline and ammonia level down to 36 from 152. Creatine is stable at 2. To continue lactulose and adding Rifaximin, advise to reach out to liver transplant service. Time Attestation Discharge Coordination Time (in mins): 35 Quality: Safe Use of Opioids Does Pt have an Active Cancer Diagnosis on the Problem List?: No Quality: Stroke Does the patient have a stroke diagnosis?: No Physical Exam Vital Signs: Vital Signs: Last Vital Signs Temp 98.3 F 08/08/25 07:02 Pulse 82 08/08/25 07:02 Resp 14 08/08/25 07:02 BP 143/67 H 08/08/25 07:02 Pulse Ox 99 08/08/25 07:02 O2 Del Method Room Air 08/08/25 07:02 BMI result Body Mass Index 35.1 DS: Data Data Completed and Pending Completed studies during hospitalization [Text1]: Procedures Control Bleeding in Gastrointestinal Tract, Via Natural or Artificial Opening Endoscopic (06/02/22) Excision of Duodenum, Via Natural or Artificial Opening Endoscopic, Diagnostic (05/22/22) Excision of Stomach, Pylorus, Via Natural or Artificial Opening Endoscopic, Diagnostic (05/22/22) Insertion of Infusion Device into Superior Vena Cava, Percutaneous Approach (05/22/22) Introduction of Mineral-based Topical Hemostatic Agent into Upper GI, Via Natural or Artificial Opening Endoscopic, [employer] 6 (06/02/22) Transfusion of Nonautologous Red Blood Cells into Peripheral Vein, Percutaneous Approach (06/02/22) Ultrasonography of Superior Vena Cava, Guidance (05/22/22) Labs on day of discharge: Laboratory Results - last 24 hr 08/07/25 08/07/25 08/07/25 12:15 14:42 18:45 Hold Purple Top PT 16.5 H INR 1.4 H Sodium Potassium Chloride Carbon Dioxide Anion Gap BUN Creatinine Estim Creat Clear Calc Estimated GFR POC Glucose 127 H Random Glucose Calcium Total Bilirubin AST ALT Alkaline Phosphatase Ammonia Total Protein Albumin Urine Color Yellow Urine Appearance Clear Urine pH 6.5 Ur Specific [place] 1.015 Urine Protein Negative Urine Glucose (UA) Negative Urine Ketones Negative Urine Blood Negative Urine Nitrite Negative Ur Leukocyte Esterase Negative 08/07/25 08/08/25 08/08/25 21:03 05:24 07:04 Hold Purple Top SEE NOTE PT INR Sodium 147 H Potassium 4.1 Chloride 120 H Carbon Dioxide 18 L Anion Gap 13 BUN 28 H Creatinine 2.00 H Estim Creat Clear Calc 28.2 Estimated GFR 33 POC Glucose 116 H 113 Random Glucose 104 Calcium 8.9 Total Bilirubin 0.6 AST 43 H ALT 30 Alkaline Phosphatase 80 Ammonia Total Protein 5.7 L Albumin 3.3 L Urine Color Urine Appearance Urine pH Ur Specific [place] Urine Protein Urine Glucose (UA) Urine Ketones Urine Blood Urine Nitrite Ur Leukocyte Esterase 08/08/25 08/08/25 08/08/25 09:04 11:19 11:52 Hold Purple Top PT INR Sodium 141 Potassium 3.8 Chloride 118 H Carbon Dioxide 17 L Anion Gap 10 L BUN Creatinine Estim Creat Clear Calc Estimated GFR POC Glucose 187 H Random Glucose Calcium Total Bilirubin AST ALT Alkaline Phosphatase Ammonia 36 Total Protein Albumin Urine Color Urine Appearance Urine pH Ur Specific [place] Urine Protein Urine Glucose (UA) Urine Ketones Urine Blood Urine Nitrite Ur Leukocyte Esterase Discharge Plan Discharge Patient Disposition: Home, Self-Care Discharge Diagnosis: hepatic encephalopathy Referrals: Juan Carlos Freeman MD [Primary Care Provider, Internal Medicine] - 1 Week Discharge Medications: New rifaximin 550 mg tablet 550 mg PO BID Qty: 180 0RF Continued Eliquis 5 mg tablet 5 mg PO BID Qty: 180 3RF cholecalciferol (vitamin D3) 25 mcg (1,000 unit) Tablet 25 mcg PO DAILY multivitamin Tablet 1 tab PO DAILY tacrolimus 1 mg capsule 1 mg PO DAILY Mounjaro 15 mg/0.5 mL pen injector 15 mg subcut MERIDA@0900 omeprazole 20 mg capsule,delayed release(DR/EC) 20 mg PO DAILY@0630 docusate sodium 100 mg Tablet 100 mg PO DAILY PRN (Reason: Constipation) furosemide 40 mg tablet 40 mg PO DAILY atorvastatin 20 mg tablet 20 mg PO BEDTIME amlodipine 10 mg tablet 10 mg PO BEDTIME lisinopril 2.5 mg tablet 2.5 mg PO DAILY tacrolimus 0.5 mg capsule 0.5 mg PO BEDTIME sennosides [senna] 8.6 mg Tablet 17.2 mg PO DAILY ascorbic acid (vitamin C) 500 mg Tablet 500 mg PO DAILY (DME) pen needle, diabetic [BD Loretta 2nd Gen Pen Needle] 32 gauge x 5/32 needle See Rx Instructions .ROUTE DAILY Qty: 1200 Rx Instructions: As directed glipizide 5 mg tablet 5 mg PO DAILY@0630 Changed lactulose 10 gram/15 mL solution 30 ml PO DAILY Qty: 1200 0RF Diet: Advance to usual diet Activity on Discharge: As tolerated Stand Alone Forms: Patient Portal Discharge page Print Language: Venezuelan Care Plan Goals: recovery from hepatic encephalopathy Health Concerns: hepatic encephalopathy Plan of Treatment: take lactulose 30 gram daily, hold for diarrhea take rifaximin as directed, follow up with your doctor in a week reach out to liver transplant clinic and let them know your were in the hospital Assessment: see above
--- NOTE | 2025-08-08 13:33 | MHC.CM.PN ---
pt dcd home self care
[2025-08-08 16:00] VITALS: BP 132/61; PULSE 69; RESP 18; TEMP 36.5; O2SAT 98
[2025-08-08 16:34] LABS: Glucose, Whole Blood 99 mg/dL (60-115)
--- NOTE | 2025-08-08 17:23 | P.CDIM_ITS ---
PROVIDER RESPONSE TEXT: To clarify, the appropriate diagnosis supported by the clinical indicators: Obesity: Class 2 obesity QUERY TEXT: PHYSICIAN'S DOCUMENTATION REQUEST Date of Query: 08/08/2025 10:50 AM EST Patient Name: Boaz Padilla Admit Date: 08/07/2025 Dear Jose Guadalupe MD, A review of the medical record indicates additional documentation may be needed. Please review below and update the documentation accordingly. Clinical Indicators: Height: 5ft Weight: 81.6kg BMI: 35.1 Other Clinical Notes Supporting Significance of the BMI: Nursing notes Height and Weight: Obesity Class II If possible, please provide an associated diagnosis related to the abnormal BMI, such as: Obesity Class I, II, III Obesity Drug induced Obesity Due to other cause Specify the other cause Other (explain) Clinically unable to determine (explain) Thank you, Lory Viramontes, CCS, CDIS Use of terms such as suspected, likely, concern for, or probable (associated with a specific diagnosis that is being evaluated, monitored, or treated as if it exists) are acceptable and can be coded in the inpatient setting, when documented at the time of discharge. Please use your independent medical judgment in providing your response. THIS QUERY IS PART OF THE PERMANENT MEDICAL RECORD
== END 2025-08-08 16:56 | disposition home or self-care (01) | DRG 442 ==
LOC: HO.ED 14:59 → HO.EDOVER 15:49 → HO.S3 19:32
PROVIDERS: Admitting Provider Internal Medicine; Emergency Provider Emergency Medicine; PCP Internal Medicine; Visit Provider Internal Medicine
DX: K76.82 Hepatic encephalopathy (principal); E87.22 Chronic metabolic acidosis; Z94.4 Liver transplant status; E66.812 Obesity, class 2; I12.9 Hypertensive chronic kidney disease with stage 1 through stage 4 chronic kidney disease, or unspecified chronic kidney disease; I48.0 Paroxysmal atrial fibrillation; N18.30 Chronic kidney disease, stage 3 unspecified; E11.22 Type 2 diabetes mellitus with diabetic chronic kidney disease; K59.00 Constipation, unspecified; Z68.35 Body mass index [BMI] 35.0-35.9, adult; Z95.2 Presence of prosthetic heart valve; Z79.01 Long term (current) use of anticoagulants; Z79.85 Long-term (current) use of injectable non-insulin antidiabetic drugs; Z79.621 Long term (current) use of calcineurin inhibitor; Z79.899 Other long term (current) drug therapy
CPT/HCPCS: 36415; 70450; 71045; 80051; 80053; 81003; 82140; 82248; 82947; 83605; 84484; 85025; 85610; 99285; J7120

== ENCOUNTER → 2025-08-07 12:48 | Outpatient (BNV) | payer MEDICARE, SELFPAY | PROVIDERS: Emergency Provider Emergency Medicine; PCP Internal Medicine; Visit Provider Radiology Diagnostic Radiology | DX: R41.82 Altered mental status, unspecified (principal) | CPT/HCPCS: 70450; 71045 ==

== ENCOUNTER → 2025-08-07 15:45 | Outpatient (BNV) | payer MEDICARE, SELFPAY | PROVIDERS: Admitting Provider Internal Medicine; Emergency Provider Emergency Medicine; PCP Internal Medicine; Visit Provider Internal Medicine | DX: I48.0 Paroxysmal atrial fibrillation (principal); K76.82 Hepatic encephalopathy | CPT/HCPCS: 99223 ==

== ENCOUNTER 2025-09-04 09:59 | Inpatient (IN) | payer MEDICARE, SELFPAY ==
--- NOTE | ~2025-09-04 | XR_ITS ---
EXAMINATION: XR CHEST CLINICAL INFORMATION: cough COMPARISON: August 07, 2025 TECHNIQUE: PA and lateral views FINDINGS: Pulmonary reticular pattern. Linear opacity extending from the right renal region to the periphery. No gross pleural effusion or pneumothorax. Cardiomediastinal silhouette size is normal. Metallic stent, overlapping the lower cardiomediastinal silhouette probably aortic valve region. Multilevel spondylosis with ossification of the anterior longitudinal ligament and multilevel decreased intervertebral disc height. XR/XR chest 2V IMPRESSION: Probable chronic interstitial lung disease with subsegmental atelectasis versus scarring. Concerning ankylosing spondylitis. Electronically signed by: Mahesh Maldonado MD 09/04/2025 12:39 PM EST
--- NOTE | ~2025-09-04 | US_ITS ---
EXAMINATION: US ABDOMEN LIMITED CLINICAL INFORMATION: ascitic fluid diagnostic and therapeutic tap, ASCITES CHECK. COMPARISON: Ultrasound on March 31, 2023 TECHNIQUE: Limited images of the four quadrants of the abdomen were obtained. FINDINGS: No free fluid was seen. US/US abdomen limited IMPRESSION: No ascites demonstrated. Electronically signed by: Sathish Waters MD 09/05/2025 09:47 AM [facility] [place]
[2025-09-04 10:14] VITALS: BP 148/80; BP 160/70; PULSE 78; PULSE 80; RESP 18; TEMP 36.8; O2SAT 100; O2SAT 97; BMI 34.0
--- NOTE | 2025-09-04 11:04 | ED.GENADULT ---
HPI - General Adult General Chief complaint: General Medical Stated complaint: TREMORS,AMS,ABN LABS,?CONSTIPATION PER EMS Time Seen by Provider: 09/04/25 11:03 Source: patient Mode of arrival: ambulatory Limitations: no limitations History of Present Illness ED Provider: Dr. Stark HPI narrative: 75-year-old male presented hospital today for evaluation of increased confusion. Patient has history of TAVR AFib on Eliquis, liver transplant, CKD, diabetes presented to ER today for evaluation of increased tremors and altered mentation. Patient presents with who is at bedside. It stated that patient has been noticed to be confused this morning. She has noticed that increased tremors in bilateral upper extremities. Patient has history of hepatic encephalopathy. He has been compliant with his medication has been having diarrhea with this medication. She stated that patient has not been drinking water much. His liver transplant he is on tacrolimus. Patient is also has a cough. She stated that patient has had complication of diabetes and kidney injury from the liver transplant. Related Data Home Medications ?Medication ?Instructions ?Recorded ?Confirmed amlodipine 10 mg tablet 10 mg PO BEDTIME 03/31/23 08/07/25 ascorbic acid (vitamin C) 500 mg 500 mg PO DAILY 03/31/23 08/07/25 tablet atorvastatin 20 mg tablet 20 mg PO BEDTIME 03/31/23 08/07/25 furosemide 40 mg tablet 40 mg PO DAILY 03/31/23 08/07/25 lisinopril 2.5 mg tablet 2.5 mg PO DAILY 03/31/23 08/07/25 sennosides 8.6 mg tablet (senna) 17.2 mg PO DAILY 03/31/23 08/07/25 tacrolimus 0.5 mg capsule, 0.5 mg PO BEDTIME 03/31/23 08/07/25 immediate-release cholecalciferol (vitamin D3) 25 25 mcg PO DAILY 04/13/23 08/07/25 mcg (1,000 unit) tablet multivitamin 1 tab PO DAILY 04/13/23 08/07/25 pen needle, diabetic 32 gauge x #1,200 ea 04/27/23 05/14/25 (BD Loretta 2nd Gen Pen Needle) glipizide 5 mg tablet 5 mg PO DAILY@0630 02/06/25 08/07/25 docusate sodium 100 mg tablet 100 mg PO DAILY PRN Constipation 08/07/25 08/07/25 omeprazole 20 mg capsule,delayed 20 mg PO DAILY@0630 08/07/25 08/07/25 release tacrolimus 1 mg capsule, 1 mg PO DAILY 08/07/25 08/07/25 immediate-release tirzepatide 15 mg/0.5 mL 15 mg subcut MERIDA@0900 08/07/25 08/07/25 subcutaneous pen injector (Nell) Previous Rx's ?Medication ?Instructions ?Recorded apixaban 5 mg tablet (Eliquis) 5 mg PO BID #180 tabs 07/16/25 lactulose 10 gram/15 mL oral 30 ml PO DAILY Constipation #1,200 08/08/25 solution mL rifaximin 550 mg tablet 550 mg PO BID #180 tabs 08/08/25 Allergies Allergy/AdvReac Type Severity Reaction Status Date / Time ibuprofen (IBUPROFEN) Allergy Severe SWELLING Verified 09/04/25 10:17 peanut (PEANUTS) Allergy Unknown SWELLING Verified 09/04/25 10:17 hydromorphone (From Dilaudid) Allergy Vomiting Verified 09/04/25 10:17 perflutren Allergy Back Pain Verified 09/04/25 10:17 prednisone Allergy Unknown Verified 09/04/25 10:17 Review of Systems Review of Systems: Pertinent review of systems as mentioned in HPI. All other system otherwise negative. [facility] Past Medical History [facility] Narrative: Medical history as mentioned in HPI Medical History Obstructive sleep apnea hypopnea, severe Hypersomnia Cirrhosis MSSA bacteremia CKD (chronic kidney disease) stage 3, GFR 30-59 ml/min Staphylococcus aureus bacteremia Duodenal ulcer Anemia Acute diastolic (congestive) heart failure Non-rheumatic aortic stenosis PAF (paroxysmal atrial fibrillation) Osteomyelitis Aortic stenosis Duodenitis Hypertension Hypercholesteremia GERD (gastroesophageal reflux disease) Diabetes Fatty liver Gram-positive bacteremia Surgical History History of esophagogastroduodenoscopy (EGD) Liver transplant recipient S/P TAVR (transcatheter aortic valve replacement) Hx of lymph node excision History of back surgery Hx of colonoscopy Liver transplant recipient Family History Family History Mother Myocardial infarct Social History Social History Household Members: Spouse Housing: House Are you a primary acute care physical therapist to a significant other at home: No Do you presently have visiting nurse or other home services: No Alcohol intake: never Patient Tobacco Use Status: Never used Tobacco Advance Directives: Yes Advance Directives on File: Yes Advance Directives Date on File: 05/19/22 Do you have a plan to hurt others: No Plan service: No Current occupational status: retired Physical Exam ED Exam Exam: General: Pleasant, no distress, interacting appropriately Head: Normacephalic, atraumatic ENT: oral mucosa moist, neck supple, no tracheal deviation Cardiovascular: regular rate, regular rhythm, no murmurs, rubbing, gallops Respiratory: CTAB, no wheeze, rales, rhonchi Gastrointestinal: Soft, non distended, non tender, non guarding Extremities: Tremors in the upper extremities bilaterally Neurological: Awake and alert, no facial droop noted Skin: Warm and dry Psychiatric: Appropriate mood and thoughts Vital Signs: Vital Signs - 24 hr 09/04/25 10:14 Temperature 98.2 F Pulse Rate 78 Respiratory Rate 18 Blood Pressure 160/70 H Pulse Oximetry 100 Oxygen Delivery Method Room Air BMI result Body Mass Index 34.0 Medications Administered Discontinued Medications Generic Name Dose Route Start Last Admin Trade Name Freq PRN Reason Stop Dose Admin Sodium Chloride 1,000 mls @ 999 mls/hr 09/04/25 11:30 09/04/25 13:00 Ns IV 09/04/25 12:30 Infused .Q1H1M PATRICIA Infusion Lactulose 20 gm 09/04/25 13:31 09/04/25 14:00 Lactulose 20 Gm/30 Ml Solution PO 09/04/25 13:32 20 gm ONCE ONE Administration Medical Decision Making Medical Decision Making MDM Narrative: 75-year-old male history of liver transplant, TAVR, CKD, diabetes, AFib on Eliquis presenting to ER today for evaluation of altered mentation. is suspecting that patient may have elevated ammonia level. We will check his ammonia level. Basic lab work will be obtained. IV fluid be given to the patient as well. We will obtain a chest x-ray to evaluate for any pulmonary causes of his altered mentation. COVID flu and RSV swab will be Wednesday with the patient. Patient's lab work did show signs of leukopenia, anemia of hemoglobin 11.1, leukopenia similar previous lab work. Creatinine 1.91. The patient creatinine is similar to previous creatinine. Ammonia level is elevated at 110. UA did not show any signs of UTI. Discussed the case with transplant doctor at [facility]. The covering transplant doctor. Recommends admission to the hospital for hepatic encephalopathy. Chest x-ray did not show any signs of consolidation. Discussed with the patient and . They are agreeable. The patient will be admitted to the hospital. Differential Diagnosis Differential Diagnoses: The differential diagnosis associated with the presentation includes Hepatic encephalopathy, pneumonia, UTI, dehydration Lab Data MDM Lab Attestation statement: I reviewed the patient's lab results. 09/04/25 11:39 09/04/25 11:39 Labs: Lab Results 09/04/25 09/04/25 09/04/25 Range/Units 11:39 11:58 12:00 WBC 3.3 L (4.8-10.8) X10*3/uL RBC 3.27 L (4.60-5.80) X10*6/uL Hgb 11.1 L (14.0-18.0) g/dl Hct 31.3 L (42.0-52.0) % MCV 95.7 (80.0-98.0) fL MCH 33.9 H (27.0-33.0) pg MCHC 35.5 (31.0-36.0) g/dl RDW 13.6 (11.0-16.0) % Plt Count 117 L (160-400) X10*3/uL MPV 9.4 (9.4-12.4) fL Immature Gran % (Auto) 0.3 (0.0-0.4) % Neut % (Auto) 39.1 L (45-73) % Lymph % (Auto) 49.2 H (20-40) % [place] % (Auto) 6.9 (2-11) % Eos % (Auto) 3.6 (0-4) % Baso % (Auto) 0.9 (0-2) % Lymph # (Auto) 1.6 (1.2-4.9) X10*3/uL [place] # (Auto) 0.2 (0.1-1.2) X10*3/uL Eos # (Auto) 0.1 (0.0-0.4) X10*3/uL Baso # (Auto) 0.0 (0.0-0.2) X10*3/uL Abs Immat Gran (auto) 0.01 (0.00-0.03) X10*3/uL Absolute Neuts (auto) 1.3 L (2.0-8.3) x10*3/uL Absolute Nucleated RBC 0.000 (0.0-0.012) X10*3/uL Nucleated RBC % (auto) 0.0 (0.0-0.2) /100WBC Hold Purple Top SEE NOTE Sodium 142 (135-145) mmol/L Potassium 4.6 D (3.3-5.1) mmol/L Chloride 115 H (96-108) mmol/L Carbon Dioxide 18 L (22-29) mmol/L Anion Gap 14 (12-20) BUN 20 H (9-16) mg/dL Creatinine 1.91 H (0.5-1.4) mg/dL Estim Creat Clear Calc 30.2 Estimated GFR 35 Random Glucose 158 H (60-115) mg/dL Calcium 9.3 (8.4-10.2) mg/dL Total Bilirubin 1.0 (0.0-1.0) mg/dL AST 45 H (5-37) U/L ALT 22 (0-40) U/L Alkaline Phosphatase 90 (39-117) U/L Ammonia 110 H (13-55) umol/L Total Protein 7.2 (6.5-8.0) g/dL Albumin 4.0 (3.5-5.0) g/dL Urine Color Yellow Urine Appearance Clear Urine pH 5.5 (5.0-9.0) Ur Specific [place] 1.010 (1.005-1.025) Urine Protein Negative (Neg-Trace) mg/dL Urine Glucose (UA) Negative (Negative) mg/dL Urine Ketones Negative (Negative) mg/dL Urine Blood Negative (Negative) Urine Nitrite Negative (Negative) Ur Leukocyte Esterase Negative (Negative) Influenza Type A (PCR) NEGATIVE (Negative) Influenza Type B (PCR) NEGATIVE (Negative) RSV RNA Qual (PCR) NEGATIVE (Negative) SARS-CoV-2 RNA (RT-PCR) NEGATIVE (Negative) Independent Interpretation I performed an independent interpretation of an: Plain X-Ray Radiology Impression Discussion of test interpretation with radiology: I have reviewed the radiologist's reading. Chronic Conditions Hepatic encephalopathy, liver transplant Critical Care Time Critical Care Time Critical Care Time: Yes Total Critical Care Time: 38 Attestation: Time is exclusive of separately billable procedures. Time includes: direct patient care, patient reassessment, coordination of patient care, interpretation of data (laboratory data, pulse oximetry, arterial blood gases and chest xrays), review of patient's medical records, medical consultation and documentation of patient care. Procedures excluded from critical care time: central intravenous line placement and electrocardiography. Discharge Plan Discharge Clinical Impression: Acute hepatic encephalopathy Patient Disposition: Admitted As Inpatient Print Language: Icelandic
[2025-09-04 11:45] LABS: MANUAL DIFF FLAG NO
[2025-09-04 11:46] LABS: Hematocrit 31.3 % (42.0-52.0); Hemoglobin 11.1 g/dl (14.0-18.0); Imm Gran Abs Auto 0.01 X10*3/uL (0.00-0.03); Imm Gran Pct Auto 0.3 % (0.0-0.4); Lymphocytes Absolute Auto 1.6 X10*3/uL (1.2-4.9); Mean Corpuscular HGB Conc 35.5 g/dl (31.0-36.0); Mean Corpuscular Hemoglobin 33.9 pg (27.0-33.0); Mean Corpuscular Volume 95.7 fL (80.0-98.0); NRBC Abs Auto 0.000 X10*3/uL (0.0-0.012); NRBC Pct Auto 0.0 /100WBC (0.0-0.2); Platelet Count 117 X10*3/uL (160-400); Red Blood Count 3.27 X10*6/uL (4.60-5.80); White Blood Count 3.3 X10*3/uL (4.8-10.8)
[2025-09-04 11:50] LABS: Appearance Urine Clear; Glucose Urine UA Negative (Negative); PH 5.5 (5.0-9.0); Specific Gravity - Urine 1.010 (1.005-1.025)
[2025-09-04 12:07] LABS: Alanine Aminotransferase 22 U/L (0-40); Albumin Level 4.0 g/dL (3.5-5.0); Alkaline Phosphatase 90 U/L (39-117); Anion Gap 14 (12-20); Aspartate Amino Transferase 45 U/L (5-37); Blood Urea Nitrogen 20 mg/dL (9-16); Calcium 9.3 mg/dL (8.4-10.2); Carbon Dioxide 18 mmol/L (22-29); Chloride 115 mmol/L (96-108); Creatinine Clr Calc Pharmacy 30.2; Estimated Glomerular Filt Rate 35; Potassium 4.6 mmol/L (3.3-5.1); Sodium 142 mmol/L (135-145); Total Protein 7.2 g/dL (6.5-8.0)
[2025-09-04 12:26] LABS: Ammonia 110 umol/L (13-55)
[2025-09-04 12:46] LABS: Resp Syncy Virus RNA Qual PCR NEGATIVE (Negative); SARS COV2 PCR INHOUSE NEGATIVE (Negative)
--- NOTE | 2025-09-04 16:49 | PM.IMHP ---
History of Present Illness Date of Service: 09/04/25 <Corrine Gatica NP - Last Filed: 09/04/25 18:30> Chief Complaint: AMS, <Brandi Marsh MD - Last Filed: 09/04/25 19:35> 75-year-old male with a history of TAVR, AFib on Eliquis, liver transplant, CKD, diabetes presented to ER today for evaluation of increased tremors and altered mentation. Patient presents with who is at bedside. According to the patients the patient has been confused this morning tremors in bilateral upper extremities. Patient has history of hepatic encephalopathy from liver transplant with a history of ADKINS. He has been compliant with his medication has been having diarrhea with this medication. According to the he has not been feeling well and reports a poor appetite over the last 2 days, no fever, chills, nausea, vomiting. She did report that his stools have been more solid than usual. He will be admitted for further management and treatment of acute hepatic encephalopathy. <Corrine Gatica NP - Last Filed: 09/04/25 18:30> Review of Systems Review of Systems: Denies any recent fever chills or decrease in appetite respiratory denies any shortness of breath or cough cardiovascular denied chest pain gastrointestinal denies any dysphagia abdominal pain nausea vomiting or diarrhea genitourinary denies any dysuria frequency or hematuria musculoskeletal denies any joint pain or swelling neuropsych denies any weakness or seizures all other systems reviewed are negative <Corrine Gatica NP - Last Filed: 09/04/25 18:30> [facility] Medical History: Medical History (Updated 09/04/25 @ 18:21 by Corrine Gatica NP) Obstructive sleep apnea hypopnea, severe Hypersomnia Cirrhosis CKD (chronic kidney disease) stage 3, GFR 30-59 ml/min Duodenal ulcer Anemia Acute diastolic (congestive) heart failure Non-rheumatic aortic stenosis PAF (paroxysmal atrial fibrillation) Aortic stenosis Duodenitis Hypertension Hypercholesteremia GERD (gastroesophageal reflux disease) Diabetes Fatty liver <Corrine Gatica NP - Last Filed: 09/04/25 18:30> Family History: Family History Mother Myocardial infarct <Corrine Gatica NP - Last Filed: 09/04/25 18:30> Surgical History: Surgical History (Updated 09/04/25 @ 18:21 by Corrine Gatica NP) History of esophagogastroduodenoscopy (EGD) Liver transplant recipient S/P TAVR (transcatheter aortic valve replacement) Hx of lymph node excision History of back surgery <Corrine Gatica NP - Last Filed: 09/04/25 18:30> Social History: Social History Household Members: Spouse Housing: House Are you a primary reproductive healthcare assistant to a significant other at home: No Do you presently have visiting nurse or other home services: No Alcohol intake: never Patient Tobacco Use Status: Never used Tobacco Advance Directives: Yes Advance Directives on File: Yes Advance Directives Date on File: 05/19/22 Do you have a plan to hurt others: No Plan service: No Current occupational status: retired <Corrine Gatica NP - Last Filed: 09/04/25 18:30> Meds Allergies/Adverse reactions: Allergies Allergy/AdvReac Type Severity Reaction Status Date / Time ibuprofen (IBUPROFEN) Allergy Severe SWELLING Verified 09/04/25 10:17 peanut (PEANUTS) Allergy Unknown SWELLING Verified 09/04/25 10:17 hydromorphone (From Dilaudid) Allergy Vomiting Verified 09/04/25 10:17 perflutren Allergy Back Pain Verified 09/04/25 10:17 prednisone Allergy Unknown Verified 09/04/25 10:17 <Corrine Gatica NP - Last Filed: 09/04/25 18:30> Home medications: Home Medications ?Medication ?Instructions ?Recorded ?Confirmed ?Last Taken ?Type amlodipine 10 mg tablet 10 mg PO BEDTIME 03/31/23 09/04/25 09/03/25 History ascorbic acid (vitamin C) 500 mg 500 mg PO DAILY 03/31/23 09/04/25 09/04/25 History tablet atorvastatin 20 mg tablet 20 mg PO BEDTIME 03/31/23 09/04/25 09/03/25 History furosemide 40 mg tablet 40 mg PO DAILY 03/31/23 09/04/25 09/04/25 History lisinopril 2.5 mg tablet 2.5 mg PO DAILY 03/31/23 09/04/25 09/04/25 History sennosides 8.6 mg tablet (senna) 17.2 mg PO DAILY 03/31/23 09/04/25 09/04/25 History tacrolimus 0.5 mg capsule, 0.5 mg PO BEDTIME 03/31/23 09/04/25 09/03/25 History immediate-release cholecalciferol (vitamin D3) 25 25 mcg PO DAILY 04/13/23 09/04/25 09/04/25 History mcg (1,000 unit) tablet multivitamin 1 tab PO DAILY 04/13/23 09/04/25 09/04/25 History pen needle, diabetic 32 gauge x #1,200 ea 04/27/23 05/14/25 Unknown History (BD Loretta 2nd Gen Pen Needle) glipizide 5 mg tablet 5 mg PO DAILY@0630 02/06/25 09/04/25 09/04/25 History docusate sodium 100 mg tablet 100 mg PO DAILY PRN Constipation 08/07/25 09/04/25 Unknown History omeprazole 20 mg capsule,delayed 20 mg PO DAILY@0630 08/07/25 09/04/25 09/04/25 History release tacrolimus 1 mg capsule, 1 mg PO DAILY 08/07/25 09/04/25 09/04/25 History immediate-release tirzepatide 15 mg/0.5 mL 15 mg subcut MERIDA@0900 08/07/25 09/04/25 09/04/25 History subcutaneous pen injector (Mounjaro) <Corrine Gatica NP - Last Filed: 09/04/25 18:30> Physical Exam Vital Signs and Narrative: Vital Signs: Last Vital Signs Temp 98.2 F 09/04/25 10:14 Pulse 78 09/04/25 10:14 Resp 18 09/04/25 10:14 BP 160/70 H 09/04/25 10:14 Pulse Ox 100 09/04/25 10:14 O2 Del Method Room Air 09/04/25 10:14 BMI result Body Mass Index 34.0 <Corrine Gatica NP - Last Filed: 09/04/25 18:30> Appearing in no acute distress head is normocephalic atraumatic eyes pupils are PERRLA sclera is anicteric mouth throat mucous membranes are intact and moist neck is supple no lymphadenopathy, no JVD noted lung sounds are clear to auscultation heart regular rate rhythm, clear S1, S2 positive bowel sounds, abdomen is soft, nontender neuro patient is alert x3 hard of hearing and forgetful, positive asterixis <Corrine Gatica NP - Last Filed: 09/04/25 18:30> Results Labs CBC and Chem 7: 09/04/25 11:39 09/04/25 11:39 <Corrine Gatica NP - Last Filed: 09/04/25 18:30> Labs: Laboratory Results - last 24 hr 09/04/25 09/04/25 09/04/25 11:39 11:58 12:00 MCV 95.7 MCH 33.9 H MCHC 35.5 RDW 13.6 Plt Count 117 L MPV 9.4 Immature Gran % (Auto) 0.3 Neut % (Auto) 39.1 L Lymph % (Auto) 49.2 H [place] % (Auto) 6.9 Eos % (Auto) 3.6 Baso % (Auto) 0.9 Lymph # (Auto) 1.6 [place]gle # (Auto) 0.2 Eos # (Auto) 0.1 Baso # (Auto) 0.0 Abs Immat Gran (auto) 0.01 Absolute Neuts (auto) 1.3 L Absolute Nucleated RBC 0.000 Nucleated RBC % (auto) 0.0 Hold Purple Top SEE NOTE Anion Gap 14 Estim Creat Clear Calc 30.2 Estimated GFR 35 Random Glucose 158 H Calcium 9.3 Total Bilirubin 1.0 AST 45 H ALT 22 Alkaline Phosphatase 90 Ammonia 110 H Total Protein 7.2 Albumin 4.0 Urine Color Yellow Urine Appearance Clear Urine pH 5.5 Ur Specific [place] 1.010 Urine Protein Negative Urine Glucose (UA) Negative Urine Ketones Negative Urine Blood Negative Urine Nitrite Negative Ur Leukocyte Esterase Negative Influenza Type A (PCR) NEGATIVE Influenza Type B (PCR) NEGATIVE RSV RNA Qual (PCR) NEGATIVE SARS-CoV-2 RNA (RT-PCR) NEGATIVE <Corrine Gatica NP - Last Filed: 09/04/25 18:30> Imaging Radiologist's Impressions: Impressions Chest X-Ray 09/04/25 12:30 IMPRESSION: Probable chronic interstitial lung disease with subsegmental atelectasis versus scarring. Concerning ankylosing spondylitis. Electronically signed by: Mahesh Maldonado MD 09/04/2025 12:39 PM [facility] [place] <Corrine Gatica NP - Last Filed: 09/04/25 18:30> Assessment and Plan (1) Acute hepatic encephalopathy: Status: Acute <Corrine Gatica NP - Last Filed: 09/04/25 18:30> 75 year old man admitted with hepatic encephalopathy with a history of ADKINS and liver transplant Acute toxic metabolic encephalopathy/hepatic encephalopathy History of recurrent hepatic encephalopathy Asterixis noted Ammonia 110 Increase lactulose to b.i.d. Monitor for diarrhea IV fluids Hypertension Continue home medications Hyperlipidemia Continue statin Diabetes mellitus type 2 Sliding scale, ADA diet CKD 3B Baseline GERD Continue PPI Liver transplant Continue tacrolimus History of TAVR and paroxysmal atrial fibrillation Continue apixaban DVT prophylaxis with eliquis Full code <Corrine Gatica NP - Last Filed: 09/04/25 18:30> Quality Stroke Does the patient have a stroke diagnosis?: No <Brandi Marsh MD - Last Filed: 09/04/25 19:35> VTE Prior VTE?: No <Brandi Marsh MD - Last Filed: 09/04/25 19:35> VTE Risk Level:: Medical - moderate - high <Brandi Marsh MD - Last Filed: 09/04/25 19:35> VTE Device Contraindication: N/A - Device Ordered <Brandi Marsh MD - Last Filed: 09/04/25 19:35> VTE Drug Contraindication: N/A - Med Ordered <Brandi Marsh MD - Last Filed: 09/04/25 19:35>
--- NOTE | 2025-09-04 17:42 | PHA.MEDREC ---
Addendum entered by Pedro Barcenas orquidea 09/04/25 17:48: med rec reviewed Original Note: Pharmacy Consult ? Medication Reconciliation Pharmacy has completed the medication reconciliation. Spoke with pt and family at bedside and they were able to confirm pt medications. Pt takes Mounjaro on Sundays and took it this past Wednesday.
[2025-09-04 20:00] VITALS: BP 146/70; PULSE 70; RESP 16; TEMP 36.6; O2SAT 99
[2025-09-04 20:43] VITALS: BMI 33.8
[2025-09-04 20:55] VITALS: BP 148/68; PULSE 84; RESP 18; TEMP 36.9; O2SAT 100
[2025-09-04 21:14] LABS: Glucose, Whole Blood 93 mg/dL (60-115)
[2025-09-05 03:27] VITALS: BP 109/55; PULSE 72; RESP 16; TEMP 36.9; O2SAT 100
[2025-09-05 07:00] LABS: Hematocrit 26.0 % (42.0-52.0); Hemoglobin 9.2 g/dl (14.0-18.0); Mean Corpuscular HGB Conc 35.4 g/dl (31.0-36.0); Mean Corpuscular Hemoglobin 33.2 pg (27.0-33.0); Mean Corpuscular Volume 93.9 fL (80.0-98.0); NRBC Abs Auto 0.000 X10*3/uL (0.0-0.012); NRBC Pct Auto 0.0 /100WBC (0.0-0.2); Red Blood Count 2.77 X10*6/uL (4.60-5.80)
[2025-09-05 07:01] LABS: Platelet Count 93 X10*3/uL (160-400); White Blood Count 2.5 X10*3/uL (4.8-10.8)
[2025-09-05 07:21] LABS: Anion Gap 11 (12-20); Blood Urea Nitrogen 18 mg/dL (9-16); Calcium 8.5 mg/dL (8.4-10.2); Carbon Dioxide 16 mmol/L (22-29); Chloride 119 mmol/L (96-108); Creatinine Clr Calc Pharmacy 33.3; Estimated Glomerular Filt Rate 39; Potassium 3.8 mmol/L (3.3-5.1); Sodium 142 mmol/L (135-145)
--- NOTE | 2025-09-05 07:37 | PM.IMPN ---
Progress Note: A&P (1) Acute hepatic encephalopathy: Status: Acute Assessment and Plan: A 75-year-old male with a history of TAVR, atrial fibrillation on apixaban, liver transplant for [facility], chronic kidney disease, and diabetes presented with increased bilateral upper extremity tremors and acute confusion was noted to have limited episode of altered mental status due to hepatic encephalopathy. altered mental status due to hepatic encephalopathy Liver transplant, ADKINS The patient experienced a limited episode of altered mental status due to hepatic encephalopathy, which improved with treatment and reduction in ammonia levels. There is no evidence of ascites to suggest spontaneous bacterial peritonitis or other infectious sources, electrolytes are within normal limits, and there is no recent history of constipation, bowel disturbance, or GI bleeding. Plan: Continue diabetic diet Continue the current dose of lactulose 20 b.i.d. , titrate lactulose to achieve 2?3 soft stools per day. Continue rifaximin and discharge with a plan for long-term use; could be insurance limiting Daily CMP and check zinc level; replace zinc if found to be low. Arrange outpatient follow-up with transplant team, GI, including scheduling an EGD for variceal screening. AFib on apixaban Continue Eliquis CKD We will avoid nephrotoxic agents Daily CMP DM type 2 Insulin sliding scale while inpatient Diabetic diet DVT prophylaxis with the Eliquis Full code If patient continues to have improvement in mentation and clinically stable, can be discharged tomorrow Subjective Subjective Date of Service: 09/05/25 Interval History: Patient is hepatic encephalopathy with hyperammonemia resolved with giving lactulose p.o. b.i.d. (from once daily dose) Ultrasound abdomen no ascitis noted Review of Systems Review of Systems: Yes all other systems are reviewed and are negative Physical Exam Vital Signs: Vital Signs: Last Vital Signs Temp 98.4 F 09/05/25 03:27 Pulse 72 09/05/25 03:27 Resp 16 09/05/25 03:27 BP 109/55 L 09/05/25 03:27 Pulse Ox 100 09/05/25 03:27 O2 Del Method Room Air 09/05/25 03:27 BMI result Body Mass Index 33.8 Gen Appear: NAD, chronically ill, no acute distress noted Chest: CTA CVS: Regular S1/S2 no murmurs Abd: soft, nontender, non distended, no shifting dullness to percussion, bowel sounds active Neuro: A/Ox3, no asterixis Objective Data Current Medications Acetaminophen (Acetaminophen 325 Mg Tablet) 650 mg PO Q6H PRN PRN Reason: Pain, Mild 1-3,fever,headache Amlodipine Besylate (Amlodipine Besylate 10 Mg Tablet) 10 mg PO BEDTIME COUNTS INCLUDE 234 BEDS AT THE [facility]; Protocol Last Admin: 09/04/25 21:59 Dose: 10 mg Apixaban (Apixaban 5 Mg Tablet) 5 mg PO BID COUNTS INCLUDE 234 BEDS AT THE [facility] Last Admin: 09/04/25 21:59 Dose: 5 mg Ascorbic Acid (Ascorbic Acid 500 Mg Tablet) 500 mg PO DAILY COUNTS INCLUDE 234 BEDS AT THE [facility] Atorvastatin Calcium (Atorvastatin Calcium 20 Mg Tablet) 20 mg PO BEDTIME COUNTS INCLUDE 234 BEDS AT THE [facility] Last Admin: 09/04/25 21:59 Dose: 20 mg Calcium Carbonate (Calcium Carbonate 750 Mg Tab.Chew) 750 mg PO Q4H PRN PRN Reason: Heartburn Dextrose (Dextrose 50 % 25 Gm/50 Ml Syringe) 25 gm IVPUSH Q15M PRN; Protocol PRN Reason: per Hypoglycemia Standing Ord. Docusate Sodium (Docusate Sodium 100 Mg Capsule) 100 mg PO DAILY PRN PRN Reason: Constipation Furosemide (Furosemide 40 Mg Tablet) 40 mg PO DAILY COUNTS INCLUDE 234 BEDS AT THE [facility]; Protocol Glucose (Glucose Gel 15 Gm Gel..Gram.) 15 gm PO Q15M PRN; Protocol PRN Reason: per Hypoglycemia Standing Ord. Sodium Chloride (Ns) 1,000 mls @ 80 mls/hr IVCONT .[id number] COUNTS INCLUDE 234 BEDS AT THE [facility] Last Admin: 09/04/25 21:17 Dose: 80 mls/hr Insulin Human Lispro (Insulin Lispro 100 Unit/Ml 3 Ml Vial) 0 unit SUBCUT QIDACHS COUNTS INCLUDE 234 BEDS AT THE [facility]; Protocol Last Admin: 09/04/25 21:58 Dose: Not Given Lactulose (Lactulose 20 Gm/30 Ml Solution) 20 gm PO BID COUNTS INCLUDE 234 BEDS AT THE [facility] Last Admin: 09/04/25 21:59 Dose: 20 gm Lisinopril (Lisinopril 2.5 Mg Tablet) 2.5 mg PO DAILY COUNTS INCLUDE 234 BEDS AT THE [facility]; Protocol Magnesium Hydroxide (Milk Of Magnesia 30 Ml Oral.Susp) 30 ml PO DAILY PRN PRN Reason: Constipation Melatonin (Melatonin 3 Mg Tablet) 6 mg PO BEDTIME PRN PRN Reason: Insomnia Multivitamins/Vitamin C (Multivitamin Tablet) 1 tab PO DAILY COUNTS INCLUDE 234 BEDS AT THE [facility] Omeprazole (Omeprazole 20 Mg Capsule.Dr) 20 mg PO DAILY@0630 COUNTS INCLUDE 234 BEDS AT THE [facility] Last Admin: 09/05/25 06:00 Dose: 20 mg Ondansetron HCl (Ondansetron Hcl 4 Mg/2 Ml Vial) 4 mg IVPUSH Q8H PRN PRN Reason: Nausea and Vomiting Senna (Sennosides 8.6 Mg Tablet) 17.2 mg PO DAILY COUNTS INCLUDE 234 BEDS AT THE [facility] Sodium Chloride (0.9 % Sodium Chloride Flush 3 Ml Syringe) 3 ml IVFLUSH QSHIFT COUNTS INCLUDE 234 BEDS AT THE [facility] Last Admin: 09/05/25 07:05 Dose: Not Given Tacrolimus (Tacrolimus 0.5 Mg Capsule) 0.5 mg PO BEDTIME COUNTS INCLUDE 234 BEDS AT THE [facility] Last Admin: 09/04/25 22:00 Dose: 0.5 mg Tacrolimus (Tacrolimus 1 Mg Capsule) 1 mg PO DAILY COUNTS INCLUDE 234 BEDS AT THE [facility] Vitamin D (Cholecalciferol (Vitamin D3) 25 Mcg Tablet) 25 mcg PO DAILY COUNTS INCLUDE 234 BEDS AT THE [facility] Labs 09/05/25 06:36 09/05/25 06:36 Labs: Laboratory Results - last 24 hr 09/04/25 09/04/25 09/04/25 11:39 11:58 12:00 MCV 95.7 MCH 33.9 H MCHC 35.5 RDW 13.6 Plt Count 117 L MPV 9.4 Immature Gran % (Auto) 0.3 Neut % (Auto) 39.1 L Lymph % (Auto) 49.2 H Davidson % (Auto) 6.9 Eos % (Auto) 3.6 Baso % (Auto) 0.9 Lymph # (Auto) 1.6 Davidson # (Auto) 0.2 Eos # (Auto) 0.1 Baso # (Auto) 0.0 Abs Immat Gran (auto) 0.01 Absolute Neuts (auto) 1.3 L Absolute Nucleated RBC 0.000 Nucleated RBC % (auto) 0.0 Hold Purple Top SEE NOTE Anion Gap 14 Estim Creat Clear Calc 30.2 Estimated GFR 35 POC Glucose Random Glucose 158 H Calcium 9.3 Total Bilirubin 1.0 AST 45 H ALT 22 Alkaline Phosphatase 90 Ammonia 110 H Total Protein 7.2 Albumin 4.0 Urine Color Yellow Urine Appearance Clear Urine pH 5.5 Ur Specific [place] 1.010 Urine Protein Negative Urine Glucose (UA) Negative Urine Ketones Negative Urine Blood Negative Urine Nitrite Negative Ur Leukocyte Esterase Negative Influenza Type A (PCR) NEGATIVE Influenza Type B (PCR) NEGATIVE RSV RNA Qual (PCR) NEGATIVE SARS-CoV-2 RNA (RT-PCR) NEGATIVE 09/04/25 09/05/25 21:10 06:36 MCV 93.9 MCH 33.2 H MCHC 35.4 RDW 13.7 Plt Count 93 L MPV 9.2 L Immature Gran % (Auto) Neut % (Auto) Lymph % (Auto) Davidson % (Auto) Eos % (Auto) Baso % (Auto) Lymph # (Auto) Davidson # (Auto) Eos # (Auto) Baso # (Auto) Abs Immat Gran (auto) Absolute Neuts (auto) Absolute Nucleated RBC 0.000 Nucleated RBC % (auto) 0.0 Hold Purple Top Anion Gap 11 L Estim Creat Clear Calc 33.3 Estimated GFR 39 POC Glucose 93 Random Glucose 106 Calcium 8.5 D Total Bilirubin AST ALT Alkaline Phosphatase Ammonia Total Protein Albumin Urine Color Urine Appearance Urine pH Ur Specific [place] Urine Protein Urine Glucose (UA) Urine Ketones Urine Blood Urine Nitrite Ur Leukocyte Esterase Influenza Type A (PCR) Influenza Type B (PCR) RSV RNA Qual (PCR) SARS-CoV-2 RNA (RT-PCR) Quality Stroke Does the patient have a stroke diagnosis?: No VTE Prior VTE?: No VTE Risk Level:: Medical - moderate - high VTE Device Contraindication: N/A - Device Ordered VTE Drug Contraindication: N/A - Med Ordered
[2025-09-05 07:39] VITALS: BP 149/65; PULSE 77; RESP 18; TEMP 36.2; O2SAT 99
[2025-09-05 07:41] LABS: Glucose, Whole Blood 136 mg/dL (60-115)
[2025-09-05 11:13] LABS: Glucose, Whole Blood 126 mg/dL (60-115)
[2025-09-05 11:44] LABS: Ammonia 53 umol/L (13-55)
--- NOTE | 2025-09-05 12:03 | P.CNGI_ITS ---
History of Present Illness Data of Consult Service Date: 09/05/25 Primary Care Provider: Juan Carlos Freeman MD HPI Reason for consult: hepatic encephalopathy 75-year-old male with a history of TAVR, AFib on Eliquis, liver transplant, CKD, diabetes who I am seeing for eval for AMS, presumed 2/2 hepatic encephalopathy. Patient was brought to ED by his who noted he was more confused with tremors. Today he tells me he feels back to baseline and he normally gets these attacks on average once every 6 months. He has no tremors today and denies melena, bleeding, sob, cough, fever,c hills, abdominal pain or urine symptoms. He has been compliant with his medications incl tacrolimus and lactulose. He denies diarrhea. He did get rifaximin and lactulose overnight and is keen to go home. LAB: CKD, pancytopenia-chronic, LFT relatively nml IMAGING: CXR with atelectasis, interstitial changes Review of Systems 2 Review of Systems: Constitutional : No Weight loss, No Fever, No Chills ENT/Mouth : No sore throat, No Rhinorrhea Eyes: No Swelling, No Redness Cardiovascular : No Chest Pain, No SOB, No Edema Respiratory : No Cough, No Sputum, No Wheezing Gastrointestinal : see HPI Genitourinary : NO Dysuria, No Urinary Frequency, No Hematuria, No Urgency Musculoskeletal : no joint pain, No Myalgias, No Joint Swelling Skin : No Skin Lesions, No rash Neuro : No Weakness, No Numbness, No Dizziness, No Headache Psych : No Anxiety/Panic, No Depression Heme/Lymph: No Bruising, No Lymphadenopathy Endocrine : No Polyuria, No Polydipsia All other systems reviewed and are negative. [facility] Past Medical History Medical History (Updated 09/05/25 @ 12:10 by Devin Blake MD) Obstructive sleep apnea hypopnea, severe Hypersomnia Cirrhosis CKD (chronic kidney disease) stage 3, GFR 30-59 ml/min Duodenal ulcer Anemia Acute diastolic (congestive) heart failure Non-rheumatic aortic stenosis PAF (paroxysmal atrial fibrillation) Aortic stenosis Duodenitis Hypertension Hypercholesteremia GERD (gastroesophageal reflux disease) Diabetes Fatty liver Family History Family History Mother Myocardial infarct Surgical History Surgical History (Updated 12/09/25 @ 18:21 by Corrine Gatica NP) History of esophagogastroduodenoscopy (EGD) Liver transplant recipient S/P TAVR (transcatheter aortic valve replacement) Hx of lymph node excision History of back surgery Social History Social History Household Members: Family Housing: Apartment Are you a primary primary care md to a significant other at home: No Do you presently have visiting nurse or other home services: No Alcohol intake: never Patient Tobacco Use Status: Never used Tobacco Advance Directives Date on File: 05/19/22 service: No Current occupational status: retired Meds Allergies Allergy/AdvReac Type Severity Reaction Status Date / Time ibuprofen (IBUPROFEN) Allergy Severe SWELLING Verified 09/04/25 10:17 peanut (PEANUTS) Allergy Unknown SWELLING Verified 09/04/25 10:17 hydromorphone (From Dilaudid) Allergy Vomiting Verified 09/04/25 10:17 perflutren Allergy Back Pain Verified 09/04/25 10:17 prednisone Allergy Unknown Verified 09/04/25 10:17 Active Medications: Current Medications Acetaminophen (Acetaminophen 325 Mg Tablet) 650 mg PO Q6H PRN PRN Reason: Pain, Mild 1-3,fever,headache Amlodipine Besylate (Amlodipine Besylate 10 Mg Tablet) 10 mg PO BEDTIME [facility]; Protocol Last Admin: 09/04/25 21:59 Dose: 10 mg Apixaban (Apixaban 5 Mg Tablet) 5 mg PO BID [facility] Last Admin: 09/05/25 08:11 Dose: 5 mg Ascorbic Acid (Ascorbic Acid 500 Mg Tablet) 500 mg PO DAILY [facility] Last Admin: 09/05/25 08:11 Dose: 500 mg Atorvastatin Calcium (Atorvastatin Calcium 20 Mg Tablet) 20 mg PO BEDTIME [facility] Last Admin: 09/04/25 21:59 Dose: 20 mg Calcium Carbonate (Calcium Carbonate 750 Mg Tab.Chew) 750 mg PO Q4H PRN PRN Reason: Heartburn Dextrose (Dextrose 50 % 25 Gm/50 Ml Syringe) 25 gm IVPUSH Q15M PRN; Protocol PRN Reason: per Hypoglycemia Standing Ord. Docusate Sodium (Docusate Sodium 100 Mg Capsule) 100 mg PO DAILY PRN PRN Reason: Constipation Furosemide (Furosemide 40 Mg Tablet) 40 mg PO DAILY PATR[facility]; Protocol Last Admin: 09/05/25 08:11 Dose: 40 mg Glucose (Glucose Gel 15 Gm Gel..Gram.) 15 gm PO Q15M PRN; Protocol PRN Reason: per Hypoglycemia Standing Ord. Sodium Chloride (Ns) 1,000 mls @ 80 mls/hr IVCONT .[id number] [facility] Last Admin: 09/05/25 08:15 Dose: 80 mls/hr Insulin Human Lispro (Insulin Lispro 100 Unit/Ml 3 Ml Vial) 0 unit SUBCUT QIDACHS [facility]; Protocol Last Admin: 09/05/25 11:26 Dose: Not Given Lactulose (Lactulose 20 Gm/30 Ml Solution) 20 gm PO BID [facility] Last Admin: 09/05/25 08:12 Dose: 20 gm Lisinopril (Lisinopril 2.5 Mg Tablet) 2.5 mg PO DAILY [facility]; Protocol Last Admin: 09/05/25 08:11 Dose: 2.5 mg Magnesium Hydroxide (Milk Of Magnesia 30 Ml Oral.Susp) 30 ml PO DAILY PRN PRN Reason: Constipation Melatonin (Melatonin 3 Mg Tablet) 6 mg PO BEDTIME PRN PRN Reason: Insomnia Multivitamins/Vitamin C (Multivitamin Tablet) 1 tab PO DAILY [facility] Last Admin: 09/05/25 08:11 Dose: 1 tab Omeprazole (Omeprazole 20 Mg Capsule.Dr) 20 mg PO DAILY@0630 [facility] Last Admin: 09/05/25 06:00 Dose: 20 mg Ondansetron HCl (Ondansetron Hcl 4 Mg/2 Ml Vial) 4 mg IVPUSH Q8H PRN PRN Reason: Nausea and Vomiting Senna (Sennosides 8.6 Mg Tablet) 17.2 mg PO DAILY [facility] Last Admin: 09/05/25 08:11 Dose: 17.2 mg Sodium Chloride (0.9 % Sodium Chloride Flush 3 Ml Syringe) 3 ml IVFLUSH QSHIFT [facility] Last Admin: 09/05/25 07:05 Dose: Not Given Tacrolimus (Tacrolimus 0.5 Mg Capsule) 0.5 mg PO BEDTIME [facility] Last Admin: 09/04/25 22:00 Dose: 0.5 mg Tacrolimus (Tacrolimus 1 Mg Capsule) 1 mg PO DAILY [facility] Last Admin: 09/05/25 09:29 Dose: 1 mg Vitamin D (Cholecalciferol (Vitamin D3) 25 Mcg Tablet) 25 mcg PO DAILY [facility] Last Admin: 09/05/25 08:12 Dose: 25 mcg Home Medications ?Medication ?Instructions ?Recorded ?Confirmed ?Last Taken ?Type amlodipine 10 mg tablet 10 mg PO BEDTIME 03/31/2309/03/25 History ascorbic acid (vitamin C) 500 mg 500 mg PO DAILY 03/3109/04/25 09/04/25 History tablet atorvastatin 20 mg tablet 20 mg PO BEDTIME 03/31/2309/03/25 History furosemide 40 mg tablet 40 mg PO DAILY 03/31/2306/2109/04/25 History lisinopril 2.5 mg tablet 2.5 mg PO DAILY 03/31/2306/2109/04/25 History sennosides 8.6 mg tablet (senna) 17.2 mg PO DAILY 02/1609/04/25 09/04/25 History tacrolimus 0.5 mg capsule, 0.5 mg PO BEDTIME 03/31/23 09/04/25 09/03/25 History immediate-release cholecalciferol (vitamin D3) 25 25 mcg PO DAILY 09/04/25 09/04/25 History mcg (1,000 unit) tablet multivitamin 1 tab PO DAILY 04/13/2306/2109/04/25 History pen needle, diabetic 32 gauge x #1,200 ea 04/27/23 Unknown History (BD Loretta 2nd Gen Pen Needle) glipizide 5 mg tablet 5 mg PO DAILY@0630 02/06/25 09/04/25 09/04/25 History docusate sodium 100 mg tablet 100 mg PO DAILY PRN Cons tipation 08/07/25 09/04/25 Unknown History omeprazole 20 mg capsule,delayed 20 mg PO DAILY@0630 1 10/07/24 09/04/25 09/04/25 History release tacrolimus 1 mg capsule, 1 mg PO DAILY 08/07/2509/0409/04/25 History immediate-release tirzepatide 15 mg/0.5 mL 15 mg subcut MERIDA@0900 5 09/04/25 09/04/25 History subcutaneous pen injector (Nell) Physical Exam 2 Exam: Exam: EXAM: GENERAL: The patient is well developed and nontoxic. VITAL SIGNS:see workflow HEENT: Nonicteric sclerae, PERRLA, EOMI. Oropharynx clear. Moist mucous membranes. Conjunctivae appear well perfused. No thyroid mass. CHEST: Chest wall is nontender. HEART: Regular rate and rhythm without murmurs. LUNGS: Clear to auscultation bilaterally. ABDOMEN: Soft, positive bowel sounds, nontender, no organomegaly.no flank tenderness SKIN: No rash, no excessive bruising, petechiae, or purpura. NEUROLOGIC: Cranial nerves II-XII intact without motor/sensory deficit. Psych: normal affect, AAO x 3 --no asterixis Vital Signs: Vital Signs: Last Vital Signs Temp 97.1 F 09/05/25 07:39 Pulse 77 09/05/25 07:39 Resp 18 09/05/25 07:39 BP 149/65 H 09/05/25 07:39 Pulse Ox 99 09/05/25 07:39 O2 Del Method Room Air 09/05/25 07:39 BMI result Body Mass Index 33.8 Results Labs 09/05/25 06:36 09/05/25 06:36 Labs: Short CBC 09/05/25 Range/Units 06:36 WBC 2.5 L (4.8-10.8) X10*3/uL Hgb 9.2 L (14.0-18.0) g/dl Hct 26.0 L (42.0-52.0) % Plt Count 93 L (160-400) X10*3/uL BMP 09/04/25 09/05/25 11:39 06:36 Sodium 142 142 Potassium 4.6 D 3.8 Chloride 115 H 119 H Carbon Dioxide 18 L 16 L BUN 20 H 18 H Creatinine 1.91 H 1.73 H Calcium 9.3 8.5 D Liver Function 09/04/25 Range/Units 11:39 Total Bilirubin 1.0 (0.0-1.0) mg/dL AST 45 H (5-37) U/L ALT 22 (0-40) U/L Alkaline Phosphatase 90 (39-117) U/L Albumin 4.0 (3.5-5.0) g/dL Assessment and Plan (1) Altered mental status: Qualifiers: Altered mental status type: delirium Qualified Code(s): R41.0 - Disorientation, unspecified Status: Acute Plan 1/ limited episode of AMS from HE< improved with treatment and reduction in NH3, no ascites to suggest SBP or other infectious sources, lytes are normal, and no evidence of recent constipation or bowel disturbance, GI bleed PLAN: /1 - advance diet, 2/ cont rifaximin and 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
[2025-09-05 13:24] LABS: Chlamydia pneumoniae PCR Not Detected (Not Detect.); Coronavirus 229E PCR Not Detected (Not Detect.); Coronavirus HKU1 PCR Not Detected (Not Detect.); Coronavirus NL63 PCR Not Detected (Not Detect.); Coronavirus OC43 PCR Not Detected (Not Detect.); RSV PCR Not Detected (Not Detect.); Rhino/Enterovirus PCR Not Detected (Not Detect.)
[2025-09-05 13:51] LABS: SARS-CoV-2 PCR Not Detected (Not Detect.)
[2025-09-05 13:52] LABS: Influenza A H1 PCR Not Detected (Not Detect.); Influenza A H1-2009 PCR Not Detected (Not Detect.); Influenza A H3 PCR Not Detected (Not Detect.)
--- NOTE | 2025-09-05 15:10 | MHC.CM.PN ---
IMM DELIVERED. PT LIVES WITH SPOUSE AND IS FUNCTIONALLY INDEP. AT BASELINE. NO DME OR SERVICES. + HCP ON FILE AND VERIFIED. PCP DR. ADAMS DP: HOME, NO SERVICES IS THE GOAL. PT'S SPOUSE WILL TRANSPORT. CM WILL CONTINUE TO FOLLOW FOR ANY CHANGE TO DC PLAN.
[2025-09-05 15:22] VITALS: BP 140/65; PULSE 71; RESP 18; TEMP 36.6; O2SAT 99
[2025-09-05 16:14] LABS: Glucose, Whole Blood 110 mg/dL (60-115)
[2025-09-05 19:11] VITALS: BP 134/64; PULSE 71; RESP 18; TEMP 36.7; O2SAT 100
[2025-09-05 20:02] LABS: Glucose, Whole Blood 113 mg/dL (60-115)
[2025-09-06 03:24] VITALS: BP 142/60; PULSE 75; RESP 18; TEMP 36.7; O2SAT 99
[2025-09-06 05:37] LABS: Hematocrit 24.3 % (42.0-52.0); Hemoglobin 8.7 g/dl (14.0-18.0); Mean Corpuscular HGB Conc 35.8 g/dl (31.0-36.0); Mean Corpuscular Hemoglobin 33.0 pg (27.0-33.0); Mean Corpuscular Volume 92.0 fL (80.0-98.0); NRBC Abs Auto 0.000 X10*3/uL (0.0-0.012); NRBC Pct Auto 0.0 /100WBC (0.0-0.2); Red Blood Count 2.64 X10*6/uL (4.60-5.80)
[2025-09-06 05:39] LABS: Platelet Count 84 X10*3/uL (160-400); White Blood Count 2.4 X10*3/uL (4.8-10.8)
[2025-09-06 05:44] LABS: Ammonia 40 umol/L (13-55)
[2025-09-06 05:53] LABS: Alanine Aminotransferase 17 U/L (0-40); Albumin Level 3.0 g/dL (3.5-5.0); Alkaline Phosphatase 73 U/L (39-117); Anion Gap 10 (12-20); Aspartate Amino Transferase 34 U/L (5-37); Blood Urea Nitrogen 19 mg/dL (9-16); Calcium 8.3 mg/dL (8.4-10.2); Carbon Dioxide 19 mmol/L (22-29); Chloride 115 mmol/L (96-108); Creatinine Clr Calc Pharmacy 32.5; Estimated Glomerular Filt Rate 38; Magnesium 1.5 mg/dL (1.6-2.6); Potassium 4.1 mmol/L (3.3-5.1); Sodium 140 mmol/L (135-145); Total Protein 5.5 g/dL (6.5-8.0)
[2025-09-06 06:16] LABS: Band Neutrophils Percent 0 % (3-5); Basophils Abs Manual 0.1 X10*3/uL (0.0-0.2); Basophils Percent Manual 3 % (0-2); Eosinophils Absolute Manual 0.1 X10*3/uL (0.0-0.4); Eosinophils Percent Manual 3 % (0-4); Lymphocytes Absolute Manual 1.4 X10*3/uL (1.2-4.9); Lymphocytes Percent Manual 57 % (20-40); Monocytes Absolute Manual 0.1 X10*3/uL (0.1-1.2); Monocytes Percent Manual 3 % (2-11); Neutrophils Absolute Manual 0.8 X10*3/uL (2.0-8.3); Neutrophils Percent Manual 34 % (45-73)
[2025-09-06 06:17] LABS: RBC Morphology NORMAL
--- NOTE | 2025-09-06 07:24 | P.PNIM_ITS ---
Subjective Subjective Date of Service: 09/06/25 Physical Exam 2 Vital Signs: Vital Signs: Last Vital Signs Temp 98.1 F 09/06/25 03:24 Pulse 75 09/06/25 03:24 Resp 18 09/06/25 03:24 BP 142/60 H 09/06/25 03:24 Pulse Ox 99 09/06/25 03:24 O2 Del Method Room Air 09/06/25 03:24 BMI result Body Mass Index 33.8 Objective Data Active Medications Acetaminophen (Acetaminophen 325 Mg Tablet) 650 mg PO Q6H PRN PRN Reason: Pain, Mild 1-3,fever,headache Amlodipine Besylate (Amlodipine Besylate 10 Mg Tablet) 10 mg PO BEDTIME [facility]; Protocol Last Admin: 09/05/25 21:28 Dose: 10 mg Documented By: VARINDER Apixaban (Apixaban 5 Mg Tablet) 5 mg PO BID [facility] Last Admin: 09/05/25 21:28 Dose: 5 mg Documented By: VARINDER Ascorbic Acid (Ascorbic Acid 500 Mg Tablet) 500 mg PO DAILY [facility] Last Admin: 09/05/25 08:11 Dose: 500 mg Documented By: JOSUE Atorvastatin Calcium (Atorvastatin Calcium 20 Mg Tablet) 20 mg PO BEDTIME [facility] Last Admin: 09/05/25 21:28 Dose: 20 mg Documented By: VARINDER Calcium Carbonate (Calcium Carbonate 750 Mg Tab.Chew) 750 mg PO Q4H PRN PRN Reason: Heartburn Dextrose (Dextrose 50 % 25 Gm/50 Ml Syringe) 25 gm IVPUSH Q15M PRN; Protocol PRN Reason: per Hypoglycemia Standing Ord. Docusate Sodium (Docusate Sodium 100 Mg Capsule) 100 mg PO DAILY PRN PRN Reason: Constipation Furosemide (Furosemide 40 Mg Tablet) 40 mg PO DAILY [facility]; Protocol Last Admin: 09/05/25 08:11 Dose: 40 mg Documented By: JOSUE Glucose (Glucose Gel 15 Gm Gel..Gram.) 15 gm PO Q15M PRN; Protocol PRN Reason: per Hypoglycemia Standing Ord. Sodium Chloride (Ns) 1,000 mls @ 80 mls/hr IVCONT .[id number] [facility] Last Admin: 09/05/25 19:41 Dose: 80 mls/hr Documented By: VARINDER Insulin Human Lispro (Insulin Lispro 100 Unit/Ml 3 Ml Vial) 0 unit SUBCUT QIDACHS [facility]; Protocol Last Admin: 09/06/25 07:22 Dose: Not Given Documented By: JOSUE Non-Admin Reason: No Insulin Coverage Lactulose (Lactulose 20 Gm/30 Ml Solution) 20 gm PO BID [facility] Last Admin: 09/05/25 21:29 Dose: 20 gm Documented By: VARINDER Lisinopril (Lisinopril 2.5 Mg Tablet) 2.5 mg PO DAILY [facility]; Protocol Last Admin: 09/05/25 08:11 Dose: 2.5 mg Documented By: JOSUE Magnesium Hydroxide (Milk Of Magnesia 30 Ml Oral.Susp) 30 ml PO DAILY PRN PRN Reason: Constipation Melatonin (Melatonin 3 Mg Tablet) 6 mg PO BEDTIME PRN PRN Reason: Insomnia Multivitamins/Vitamin C (Multivitamin Tablet) 1 tab PO DAILY [facility] Last Admin: 09/05/25 08:11 Dose: 1 tab Documented By: JOSUE Omeprazole (Omeprazole 20 Mg Capsule.) 20 mg PO DAILY@0630 [facility] Last Admin: 09/06/25 05:42 Dose: 20 mg Documented By: VARINDER Ondansetron HCl (Ondansetron Hcl 4 Mg/2 Ml Vial) 4 mg IVPUSH Q8H PRN PRN Reason: Nausea and Vomiting Senna (Sennosides 8.6 Mg Tablet) 17.2 mg PO DAILY [facility] Last Admin: 09/05/25 08:11 Dose: 17.2 mg Documented By: JOSUE Sodium Chloride (0.9 % Sodium Chloride Flush 3 Ml Syringe) 3 ml [facility] Last Admin: 09/06/25 07:00 Dose: Not Given Documented By: JOSUE Non-Admin Reason: IV Running Tacrolimus (Tacrolimus 0.5 Mg Capsule) 0.5 mg PO BEDTIME [facility] Last Admin: 09/05/25 21:29 Dose: 0.5 mg Documented By: VARINDER Tacrolimus (Tacrolimus 1 Mg Capsule) 1 mg PO DAILY [facility] Last Admin: 09/05/25 09:29 Dose: 1 mg Documented By: JOSUE Vitamin D (Cholecalciferol (Vitamin D3) 25 Mcg Tablet) 25 mcg PO DAILY [facility] Last Admin: 09/05/25 08:12 Dose: 25 mcg Documented By: HO.DABA Labs 09/06/25 05:28 09/06/25 05:28 Labs: Laboratory Results - last 24 hr 09/04/25 09/05/25 09/05/25 21:20 07:32 09:30 MCV MCH MCHC RDW Plt Count MPV Immature Gran % (Auto) Neut % (Auto) Lymph % (Auto) [place] % (Auto) Eos % (Auto) Baso % (Auto) Lymph # (Auto) [place] # (Auto) Eos # (Auto) Baso # (Auto) Abs Immat Gran (auto) Absolute Neuts (auto) Absolute Nucleated RBC Nucleated RBC % (auto) Neutrophils % (Manual) Band Neutrophils % Lymphocytes % (Manual) Monocytes % (Manual) Eosinophils % (Manual) Basophils % (Manual) Abs Neuts (Manual) Lymphocytes # (Manual) Monocytes # (Manual) Eosinophils # (Manual) Basophils # (Manual) Platelet Estimate Plt Morphology Comment RBC Morphology Anion Gap Estim Creat Clear Calc Estimated GFR POC Glucose 136 H Random Glucose Calcium Magnesium Total Bilirubin AST ALT Alkaline Phosphatase Ammonia Total Protein Albumin Respiratory Panel Rose Cancelled See Note Adenovirus (Rapid PCR) Cancelled Not Detected B.pert (TEM-PCR) Cancelled Not Detected B.parapertussis DNA PCR Cancelled Not Detected C. pneumoniae DNA (PCR) Cancelled Not Detected Coronavirus OC43 (PCR) Cancelled Not Detected Coronavirus HKU1 (PCR) Cancelled Not Detected Coronavirus 229E (PCR) Cancelled Not Detected Coronavirus NL63 (PCR) Cancelled Not Detected Human Metapneumovir PCR Cancelled Not Detected Influenza A (RT-PCR) Cancelled Not Detected Influenza A (H1) PCR Cancelled Not Detected Influ A (H1/09) PCR Cancelled Not Detected Influenza A (H3) PCR Cancelled Not Detected Influenza B (RT-PCR) Cancelled Not Detected M. pneumoniae (PCR) Cancelled Not Detected Parainfluenza 1 (PCR) Cancelled Not Detected Parainfluenza 2 (PCR) Cancelled Not Detected Parainfluenza 3 (PCR) Cancelled Not Detected Parainfluenza 4 (PCR) Cancelled Not Detected RSV (PCR) Cancelled Not Detected Entero/Rhino (PCR) Cancelled Not Detected SARS-CoV-2 RNA (RT-PCR) Cancelled Not Detected 09/05/25 09/05/25 09/05/25 11:08 11:20 16:00 MCV MCH MCHC RDW Plt Count MPV Immature Gran % (Auto) Neut % (Auto) Lymph % (Auto) [place] % (Auto) Eos % (Auto) Baso % (Auto) Lymph # (Auto) [place] # (Auto) Eos # (Auto) Baso # (Auto) Abs Immat Gran (auto) Absolute Neuts (auto) Absolute Nucleated RBC Nucleated RBC % (auto) Neutrophils % (Manual) Band Neutrophils % Lymphocytes % (Manual) Monocytes % (Manual) Eosinophils % (Manual) Basophils % (Manual) Abs Neuts (Manual) Lymphocytes # (Manual) Monocytes # (Manual) Eosinophils # (Manual) Basophils # (Manual) Platelet Estimate Plt Morphology Comment RBC Morphology Anion Gap Estim Creat Clear Calc Estimated GFR POC Glucose 126 H 110 Random Glucose Calcium Magnesium Total Bilirubin AST ALT Alkaline Phosphatase Ammonia 53 Total Protein Albumin Respiratory Panel Rose Adenovirus (Rapid PCR) B.pert (TEM-PCR) B.parapertussis DNA PCR C. pneumoniae DNA (PCR) Coronavirus OC43 (PCR) Coronavirus HKU1 (PCR) Coronavirus 229E (PCR) Coronavirus NL63 (PCR) Human Metapneumovir PCR Influenza A (RT-PCR) Influenza A (H1) PCR Influ A (H1/09) PCR Influenza A (H3) PCR Influenza B (RT-PCR) M. pneumoniae (PCR) Parainfluenza 1 (PCR) Parainfluenza 2 (PCR) Parainfluenza 3 (PCR) Parainfluenza 4 (PCR) RSV (PCR) Entero/Rhino (PCR) SARS-CoV-2 RNA (RT-PCR) 09/05/25 09/06/25 19:58 05:28 MCV 92.0 MCH 33.0 MCHC 35.8 RDW 13.6 Plt Count 84 L MPV 9.3 L Immature Gran % (Auto) Cancelled Neut % (Auto) Cancelled Lymph % (Auto) Cancelled [place] % (Auto) Cancelled Eos % (Auto) Cancelled Baso % (Auto) Cancelled Lymph # (Auto) Cancelled [place] # (Auto) Cancelled Eos # (Auto) Cancelled Baso # (Auto) Cancelled Abs Immat Gran (auto) Cancelled Absolute Neuts (auto) Cancelled Absolute Nucleated RBC 0.000 Nucleated RBC % (auto) 0.0 Neutrophils % (Manual) 34 L Band Neutrophils % 0 L Lymphocytes % (Manual) 57 H Monocytes % (Manual) 3 Eosinophils % (Manual) 3 Basophils % (Manual) 3 H Abs Neuts (Manual) 0.8 L Lymphocytes # (Manual) 1.4 Monocytes # (Manual) 0.1 Eosinophils # (Manual) 0.1 Basophils # (Manual) 0.1 Platelet Estimate DECREASED Plt Morphology Comment NOTED RBC Morphology NORMAL Anion Gap 10 L Estim Creat Clear Calc 32.5 Estimated GFR 38 POC Glucose 113 Random Glucose 123 H Calcium 8.3 L Magnesium 1.5 L Total Bilirubin 0.7 AST 34 ALT 17 Alkaline Phosphatase 73 Ammonia 40 Total Protein 5.5 L Albumin 3.0 L Respiratory Panel Rose Adenovirus (Rapid PCR) B.pert (TEM-PCR) B.parapertussis DNA PCR C. pneumoniae DNA (PCR) Coronavirus OC43 (PCR) Coronavirus HKU1 (PCR) Coronavirus 229E (PCR) Coronavirus NL63 (PCR) Human Metapneumovir PCR Influenza A (RT-PCR) Influenza A (H1) PCR Influ A (H1/09) PCR Influenza A (H3) PCR Influenza B (RT-PCR) M. pneumoniae (PCR) Parainfluenza 1 (PCR) Parainfluenza 2 (PCR) Parainfluenza 3 (PCR) Parainfluenza 4 (PCR) RSV (PCR) Entero/Rhino (PCR) SARS-CoV-2 RNA (RT-PCR) Quality Stroke Does the patient have a stroke diagnosis?: No VTE Prior VTE?: No VTE Risk Level:: Medical - moderate - high VTE Device Contraindication: N/A - Device Ordered VTE Drug Contraindication: N/A - Med Ordered
[2025-09-06 07:28] LABS: Glucose, Whole Blood 121 mg/dL (60-115)
[2025-09-06 08:00] VITALS: BP 126/60; PULSE 69; RESP 18; TEMP 36.4; O2SAT 99
[2025-09-06] MEDS: Magnesium Sulfate/H2O 2 GM/50 ML PIGGYBACK IV (08:20)
--- NOTE | 2025-09-06 09:52 | P.DS_ITS ---
DS: Providers Provider Date of Service: 09/06/25 Date of admission: 09/04/25 16:59 Date of discharge: 09/06/25 Primary care physician: Juan Carlos Freeman MD DS: Diagnosis Discharge Diagnosis (1) Acute hepatic encephalopathy: Status: Acute DS: Summary Hospital Course Hospital Course: Chief Complaint: AMS 75-year-old male with a history of TAVR, AFib on Eliquis, liver transplant, CKD, diabetes presented to ER today for evaluation of increased tremors and altered mentation. Patient presents with who is at bedside. According to the patients the patient has been confused this morning tremors in bilateral upper extremitie s. Patient has history of hepatic encephalopathy from liver transplant with a history of ADKINS. He has been compliant with his medication has been having diarrhea with this medication. According to the he has not been feeling well and reports a poor appetite over the last 2 days, no fever, chills, nausea, vomiting. She did report that his stools have been more solid than usual. He will be admitted for further management and treatment of acute hepatic encephalopathy. Discharge Diagnosis: Acute hepatic encephalopathy, resolved History of liver transplant (ADKINS) Atrial fibrillation (on apixaban) Chronic kidney disease Type 2 diabetes mellitus Status post TAVR Hospital Course: The patient is a 75-year-old male with a history of liver transplant for ADKINS, atrial fibrillation on apixaban, chronic kidney disease, type 2 diabetes, and TAVR, who was admitted with acute confusion and increased bilateral upper extremity tremors. Workup revealed an episode of hepatic encephalopathy, with elevated ammonia levels. There was no evidence of infection (no ascites, normal electrolytes, no GI bleeding or constipation). The patient?s mental status improved with lactulose alone therapy, and ammonia levels normalized. No complications occurred during the admission. Hospital Management: Hepatic Encephalopathy: Lactulose 20 mL BID, titrated to 2?3 soft stools per day Rifaximin continued for long-term use (pending insurance approval) Zinc level checked; to be replaced if low by PCP/[facility] collection support specialist Diabetic diet Atrial Fibrillation: Continued Eliquis (apixaban) Chronic Kidney Disease: Avoided nephrotoxic agents Daily CMP monitoring Diabetes Mellitus Type 2: Insulin sliding scale while inpatient Diabetic diet DVT Prophylaxis: Covered with Eliquis Code Status: Full code Discharge Condition: The patient?s mental status returned to baseline, and he remained clinically stable at the time of discharge. Time spent discussing smoking cessation with patient: more than 10 minutes Status at Discharge Functional status at discharge: independent ambulation Time Attestation Discharge Coordination Time (in mins): 65 Quality: Safe Use of Opioids Does Pt have an Active Cancer Diagnosis on the Problem List?: No Quality: Stroke Does the patient have a stroke diagnosis?: No Physical Exam Vital Signs: Vital Signs: Last Vital Signs Temp 97.6 F 09/06/25 08:00 Pulse 69 09/06/25 08:00 Resp 18 09/06/25 08:00 BP 126/60 09/06/25 08:00 Pulse Ox 99 09/06/25 08:00 O2 Del Method Room Air 09/06/25 08:00 BMI result Body Mass Index 33.8 Gen Appear: NAD, chronically ill, no acute distress noted Chest: CTA CVS: Regular S1/S2 no murmurs Abd: soft, nontender, non distended, no shifting dullness to percussion, bowel sounds active Neuro: A/Ox3, no asterixis DS: Data Data Completed and Pending Completed studies during hospitalization [Text1]: Procedures Control Bleeding in Gastrointestinal Tract, Via Natural or Artificial Opening Endoscopic (06/02/22) Excision of Duodenum, Via Natural or Artificial Opening Endoscopic, Diagnostic (05/22/22) Excision of Stomach, Pylorus, Via Natural or Artificial Opening Endoscopic, Diagnostic (05/22/22) Insertion of Infusion Device into Superior Vena Cava, Percutaneous Approach (05/22/22) Introduction of Mineral-based Topical Hemostatic Agent into Upper GI, Via Natural or Artificial Opening Endoscopic, [employer] 6 (06/02/22) Transfusion of Nonautologous Red Blood Cells into Peripheral Vein, Percutaneous Approach (06/02/22) Ultrasonography of Superior Vena Cava, Guidance (05/22/22) Labs on day of discharge: Laboratory Results - last 24 hr 09/05/25 09/05/25 09/05/25 09:30 11:08 11:20 WBC RBC Hgb Hct MCV MCH MCHC RDW Plt Count MPV Immature Gran % (Auto) Neut % (Auto) Lymph % (Auto) [place] % (Auto) Eos % (Auto) Baso % (Auto) Lymph # (Auto) [place] # (Auto) Eos # (Auto) Baso # (Auto) Abs Immat Gran (auto) Absolute Neuts (auto) Absolute Nucleated RBC Nucleated RBC % (auto) Neutrophils % (Manual) Band Neutrophils % Lymphocytes % (Manual) Monocytes % (Manual) Eosinophils % (Manual) Basophils % (Manual) Abs Neuts (Manual) Lymphocytes # (Manual) Monocytes # (Manual) Eosinophils # (Manual) Basophils # (Manual) Platelet Estimate Plt Morphology Comment RBC Morphology Sodium Potassium Chloride Carbon Dioxide Anion Gap BUN Creatinine Estim Creat Clear Calc Estimated GFR POC Glucose 126 H Random Glucose Calcium Magnesium Total Bilirubin AST ALT Alkaline Phosphatase Ammonia 53 Total Protein Albumin Respiratory Panel Rose See Note Adenovirus (Rapid PCR) Not Detected B.pert (TEM-PCR) Not Detected B.parapertussis DNA PCR Not Detected C. pneumoniae DNA (PCR) Not Detected Coronavirus OC43 (PCR) Not Detected Coronavirus HKU1 (PCR) Not Detected Coronavirus 229E (PCR) Not Detected Coronavirus NL63 (PCR) Not Detected Human Metapneumovir PCR Not Detected Influenza A (RT-PCR) Not Detected Influenza A (H1) PCR Not Detected Influ A (H1/09) PCR Not Detected Influenza A (H3) PCR Not Detected Influenza B (RT-PCR) Not Detected M. pneumoniae (PCR) Not Detected Parainfluenza 1 (PCR) Not Detected Parainfluenza 2 (PCR) Not Detected Parainfluenza 3 (PCR) Not Detected Parainfluenza 4 (PCR) Not Detected RSV (PCR) Not Detected Entero/Rhino (PCR) Not Detected SARS-CoV-2 RNA (RT-PCR) Not Detected 09/05/25 09/05/25 09/06/25 16:00 19:58 05:28 WBC 2.4 L RBC 2.64 L Hgb 8.7 L Hct 24.3 L MCV 92.0 MCH 33.0 MCHC 35.8 RDW 13.6 Plt Count 84 L MPV 9.3 L Immature Gran % (Auto) Cancelled Neut % (Auto) Cancelled Lymph % (Auto) Cancelled [place] % (Auto) Cancelled Eos % (Auto) Cancelled Baso % (Auto) Cancelled Lymph # (Auto) Cancelled [place] # (Auto) Cancelled Eos # (Auto) Cancelled Baso # (Auto) Cancelled Abs Immat Gran (auto) Cancelled Absolute Neuts (auto) Cancelled Absolute Nucleated RBC 0.000 Nucleated RBC % (auto) 0.0 Neutrophils % (Manual) 34 L Band Neutrophils % 0 L Lymphocytes % (Manual) 57 H Monocytes % (Manual) 3 Eosinophils % (Manual) 3 Basophils % (Manual) 3 H Abs Neuts (Manual) 0.8 L Lymphocytes # (Manual) 1.4 Monocytes # (Manual) 0.1 Eosinophils # (Manual) 0.1 Basophils # (Manual) 0.1 Platelet Estimate DECREASED Plt Morphology Comment NOTED RBC Morphology NORMAL Sodium 140 Potassium 4.1 Chloride 115 H Carbon Dioxide 19 L Anion Gap 10 L BUN 19 H Creatinine 1.77 H Estim Creat Clear Calc 32.5 Estimated GFR 38 POC Glucose 110 113 Random Glucose 123 H Calcium 8.3 L Magnesium 1.5 L Total Bilirubin 0.7 AST 34 ALT 17 Alkaline Phosphatase 73 Ammonia 40 Total Protein 5.5 L Albumin 3.0 L Respiratory Panel Rose Adenovirus (Rapid PCR) B.pert (TEM-PCR) B.parapertussis DNA PCR C. pneumoniae DNA (PCR) Coronavirus OC43 (PCR) Coronavirus HKU1 (PCR) Coronavirus 229E (PCR) Coronavirus NL63 (PCR) Human Metapneumovir PCR Influenza A (RT-PCR) Influenza A (H1) PCR Influ A (H1/09) PCR Influenza A (H3) PCR Influenza B (RT-PCR) M. pneumoniae (PCR) Parainfluenza 1 (PCR) Parainfluenza 2 (PCR) Parainfluenza 3 (PCR) Parainfluenza 4 (PCR) RSV (PCR) Entero/Rhino (PCR) SARS-CoV-2 RNA (RT-PCR) 09/06/25 07:21 WBC RBC Hgb Hct MCV MCH MCHC RDW Plt Count MPV Immature Gran % (Auto) Neut % (Auto) Lymph % (Auto) [place] % (Auto) Eos % (Auto) Baso % (Auto) Lymph # (Auto) [place] # (Auto) Eos # (Auto) Baso # (Auto) Abs Immat Gran (auto) Absolute Neuts (auto) Absolute Nucleated RBC Nucleated RBC % (auto) Neutrophils % (Manual) Band Neutrophils % Lymphocytes % (Manual) Monocytes % (Manual) Eosinophils % (Manual) Basophils % (Manual) Abs Neuts (Manual) Lymphocytes # (Manual) Monocytes # (Manual) Eosinophils # (Manual) Basophils # (Manual) Platelet Estimate Plt Morphology Comment RBC Morphology Sodium Potassium Chloride Carbon Dioxide Anion Gap BUN Creatinine Estim Creat Clear Calc Estimated GFR POC Glucose 121 H Random Glucose Calcium Magnesium Total Bilirubin AST ALT Alkaline Phosphatase Ammonia Total Protein Albumin Respiratory Panel Rose Adenovirus (Rapid PCR) B.pert (TEM-PCR) B.parapertussis DNA PCR C. pneumoniae DNA (PCR) Coronavirus OC43 (PCR) Coronavirus HKU1 (PCR) Coronavirus 229E (PCR) Coronavirus NL63 (PCR) Human Metapneumovir PCR Influenza A (RT-PCR) Influenza A (H1) PCR Influ A (H1) PCR Influenza A (H3) PCR Influenza B (RT-PCR) M. pneumoniae (PCR) Parainfluenza 1 (PCR) Parainfluenza 2 (PCR) Parainfluenza 3 (PCR) Parainfluenza 4 (PCR) RSV (PCR) Entero/Rhino (PCR) SARS-CoV-2 RNA (RT-PCR) Discharge Plan Discharge Anticipated Discharge Date/Time: 09/06/25 09:47 Patient Disposition: Home, Self-Care Discharge Diagnosis: Acute hepatic encephalopathy, limited episode, unclear etiology found at the time of this hospitalization Referrals: Suzanne Nye MD [Physician, Transplant Surgery] - 1 Week Referral Note: Acute hepatic encephalopathy Juan Carlos Freeman MD [Primary Care Provider, Internal Medicine] - 1 Week [facility] [Provider Group] - 1 Week Discharge Medications: New Xifaxan 200 mg tablet 200 mg PO TID 30 Days Qty: 90 0RF Continued Eliquis 5 mg tablet 5 mg PO BID Qty: 180 3RF cholecalciferol (vitamin D3) 25 mcg (1,000 unit) Tablet 25 mcg PO DAILY multivitamin Tablet 1 tab PO DAILY tacrolimus 1 mg capsule 1 mg PO DAILY Mounjaro 15 mg/0.5 mL pen injector 15 mg subcut MERIDA@0900 omeprazole 20 mg capsule,delayed release(DR/EC) 20 mg PO DAILY@0630 docusate sodium 100 mg Tablet 100 mg PO DAILY PRN (Reason: Constipation) furosemide 40 mg tablet 40 mg PO DAILY atorvastatin 20 mg tablet 20 mg PO BEDTIME amlodipine 10 mg tablet 10 mg PO BEDTIME lisinopril 2.5 mg tablet 2.5 mg PO DAILY tacrolimus 0.5 mg capsule 0.5 mg PO BEDTIME sennosides [senna] 8.6 mg Tablet 17.2 mg PO DAILY ascorbic acid (vitamin C) 500 mg Tablet 500 mg PO DAILY (DME) pen needle, diabetic [BD Loretta 2nd Gen Pen Needle] 32 gauge x 5/32 needle See Rx Instructions .ROUTE DAILY Qty: 1200 Rx Instructions: As directed glipizide 5 mg tablet 5 mg PO DAILY@0630 Changed lactulose 10 gram/15 mL solution 20 ml PO BID Qty: 1200 0RF Discharge Orders: Discharge Order (Routine); Ordered 09/06/25 Ordered By: Brandi Marsh Diet: Low salt diet Activity on Discharge: As tolerated Stand Alone Forms: Patient Portal Discharge page Print Language: Argentine Care Plan Goals: Discharge Instructions: Continue diabetic diet Take medications as prescribed Monitor for signs of recurrent confusion, GI bleeding, or infection Avoid nephrotoxic medications Maintain adequate hydration Follow-Up Appointments: Outpatient follow-up with transplant team Gastroenterology follow-up (including scheduling EGD for variceal screening) Primary care provider as scheduled Pending Results: Zinc level (to be replaced if low) by PCP/[facility] transplant team Health Concerns: See above Plan of Treatment: See above Assessment: See above Patient Instructions: Lactulose (By mouth)
--- NOTE | 2025-09-06 10:59 | MHC.CM.PN ---
DP: PT HAS BEEN MEDICALLY CLEARED FOR DC HOME, NO SERVICES. [facility] WILL TRANSPORT.
[2025-09-06 11:32] LABS: Glucose, Whole Blood 171 mg/dL (60-115)
[2025-09-06 11:51] VITALS: BP 132/65; PULSE 74; RESP 18; TEMP 36.4; O2SAT 100
== END 2025-09-06 12:46 | disposition home or self-care (01) | DRG 442 ==
LOC: HO.ED 16:04 → HO.EDOVER 17:04 → HO.S3 19:15
PROVIDERS: Hospitalist; Admitting Provider Nurse Practitioner Acute Care; Emergency Provider Student in an Organized Health Care Education/Training Program; PCP Internal Medicine; Visit Provider Student in an Organized Health Care Education/Training Program
DX: K76.82 Hepatic encephalopathy (principal); Z94.4 Liver transplant status; I12.9 Hypertensive chronic kidney disease with stage 1 through stage 4 chronic kidney disease, or unspecified chronic kidney disease; K21.9 Gastro-esophageal reflux disease without esophagitis; N18.32 Chronic kidney disease, stage 3b; E11.22 Type 2 diabetes mellitus with diabetic chronic kidney disease; Z20.822 Contact with and (suspected) exposure to COVID-19; Z95.2 Presence of prosthetic heart valve; Z79.01 Long term (current) use of anticoagulants; Z79.621 Long term (current) use of calcineurin inhibitor; Z79.85 Long-term (current) use of injectable non-insulin antidiabetic drugs; Z79.899 Other long term (current) drug therapy; I48.0 Paroxysmal atrial fibrillation
CPT/HCPCS: 36415; 71046; 76705; 80048; 80053; 81003; 82140; 82947; 83735; 84630; 85007; 85025; 85027; 87633; 87637; 99285; J3475

== ENCOUNTER → 2025-09-04 11:17 | Outpatient (BNV) | payer MEDICARE, SELFPAY | PROVIDERS: Emergency Provider Student in an Organized Health Care Education/Training Program; PCP Internal Medicine; Visit Provider Radiology Diagnostic Radiology | DX: R05.9 Cough, unspecified (principal) | CPT/HCPCS: 71046 ==

== ENCOUNTER 2025-09-04 16:59 | Outpatient (BNV) | payer MEDICARE, SELFPAY | END 2025-09-05 09:13 | PROVIDERS: Admitting Provider Nurse Practitioner Acute Care; Emergency Provider Student in an Organized Health Care Education/Training Program; PCP Internal Medicine; Visit Provider Radiology Body Imaging | DX: Z03.89 Encounter for observation for other suspected diseases and conditions ruled out (principal) | CPT/HCPCS: 76705 ==

== ENCOUNTER → 2025-09-04 16:59 | Outpatient (BNV) | payer MEDICARE, SELFPAY | PROVIDERS: Admitting Provider Nurse Practitioner Acute Care; Emergency Provider Student in an Organized Health Care Education/Training Program; PCP Internal Medicine; Visit Provider Nurse Practitioner Acute Care | DX: K76.82 Hepatic encephalopathy (principal) | CPT/HCPCS: 99232 ==

== ENCOUNTER → 2025-09-04 16:59 | Outpatient (BNV) | payer MEDICARE, SELFPAY | PROVIDERS: Admitting Provider Nurse Practitioner Acute Care; Emergency Provider Student in an Organized Health Care Education/Training Program; PCP Internal Medicine; Visit Provider Internal Medicine Gastroenterology | DX: R41.0 Disorientation, unspecified (principal) | CPT/HCPCS: 99222 ==